=== PATIENT | female | born 1985 | race Caucasian/White ===

== ENCOUNTER 2021-09-07 13:54 | Outpatient (CLI) | payer BC, SELFPAY ==
--- NOTE | 2021-09-07 14:00 | CRLHL7_ITS ---
For Patients: As a result of the Century Cures Act, medical imaging exams and procedure reports are released immediately into your electronic medical record. You may view this report before your referring provider. If you have questions, please contact your health care provider. INDICATION: Third trimester scan, evaluate growth. 2 VESSEL CORD, HISTORY OF COVID IN COMPARISON: 08/08/2021 TECHNIQUE: Real time reid scale imaging of the fetus was performed. FINDINGS: Sonographic imaging demonstrates a single living intrauterine gestation. Fetus demonstrates a regular cardiac rate of 152 beats per minute. Fetus has a vertex position. The placenta lies posteriorly. Amniotic fluid volume appears normal and there is a single deepest vertical pocket: 5.9 cm. The estimated weight is 2428gm which lies at the 93rd %. On the prior OB ultrasound exam dated 08/08/2021 the estimated weight was at the greater than 97th%. BPD 59th percentile. HC 59th percentile. Abdominal circumference greater than 97th percentile. FL 51st percentile. The HC/AC ratio measures 0.97 range (0.95-1.11). IMPRESSION: Sonographic gestational age 33 weeks 6 days and sonographic due date of 10/20/2021. Sonographic age 10 days ahead of the clinical age. Estimated weight 93rd percentile. Abdominal circumference greater than 97th percentile. Dictated by Twin Sykes MD @ 09/07/2021 3:32:34 PM (Electronically Signed)
--- OUTSIDE RECORDS SUMMARY | 2021-10-02 13:29 | XMS_ITS | Encounter Summary ---
:1985 Author Organization [facility] Address [address] [place] [address] Care Team Providers Name Role Phone MireilleJie jones Shweta ZARAGOZA Primary Care Provider Reason for Visit Reason Comments Refill [place] Encounter Details Date Type Department Care Team Description 02/12/2017 [facility] Nicholas Kay A PRN, SKILLED HELPER Refill ([facility]) Obstetrics/Gynecolog y [address] [facility] 5th [place] [address] [place], [place] [phone] (Wo rk) Social History Tobacco Use Types Packs/Day Years Used Date Smoking Tobacco: Never Alcohol Use Standard Drinks/Week Comments Yes 2 (1 standard drink = 0.6 oz pure 2-3 pe r glasses drinks per week alcohol) Alcohol Habits Answer Date Recorded How often do you have a drink Not asked containing alcohol? How many drinks containing alcohol do Not asked you have on a typical day when you are drinking? How often do you have six or more Not asked drinks on one occasion? Comment: 2-3 per glasses drinks per week 03/04/19 15 Sex Assigned at Date Recorded Not on file documented as of this encounter Nursing Notes Ruiz Renee RN - 02/13/2017 3:24 PM CST Renewed medication per medication refill protocol. Reminded to make annual appt. Requested Prescriptions Signed Prescriptions Disp Refills ??? [place] FE 03/15 1-20 MG-MCG tablet 28 Tab 0 Sig: TAKE 1 TABLET BY MOUTH ONCE DAILY Authorizing Provider: NICHOLAS KAY Ordering User: RUIZ RENEE AL COUNTER CLERK documented in this encounter Plan of Treatment Not on filedocumented as of this encounter Visit Diagnoses Not on filedocumented in this encounter Care Teams Public Address Servicer Relationship Specialty Start Date End Date Jie Farah DO PCP - General Family Practice 04/05/16 [address] [place] [address] documented as of this encounter
--- OUTSIDE RECORDS SUMMARY | 2021-10-02 13:29 | XMS_ITS | Encounter Summary ---
:1985 Author [facility] Address [address] [place] [address] Care Team Providers Name Role Phone Jie Farah DO Primary Care Provider Reason for Visit Reason Comments Sore Throat Encounter Details Date Type Department Care Team Description 05/18/2019 Nurse Triage [facility] Line Jie Farah, DO Sore Throat [address] [facility] [address] [place], [place] [id number] [place] [address] [phone] Social History Tobacco Use Types Packs/Day Years Used Date Smoking Tobacco: Never Smokeless Tobacco: Never Alcohol Use Standard Drinks/Week Comments [...] documented as of this encounter Nursing Notes Lawanda Pat RN - 05/18/2019 5:03 PM CDT Pt calling with concerns about a tickle, sensation of something in her throat since 05/15. States bin developed a headache on 05/17 and has a very mild cough. She has been resting at home. Denies difficulty breathing, fever. Pt verbalized understanding of symptoms to watch for [facility] also [facility] on [facility]07[facility]. Problem list reviewed as related to this call. Reason for Disposition ? ? [1] Sore throat is the only symptom AND [2] sore throat present < 48 hours Protocols used: SORE [id number] documented in this encounter Plan of Treatment Not on filedocumented as of this encounter Visit Diagnoses Not on filedocumented in this encounter Care Teams Lay Out Maker Relationship Specialty Start Date End Date Jie Farah DO PCP - General Family Practice 04/05/16 [address] [place] [address] documented as of this encounter
--- OUTSIDE RECORDS SUMMARY | 2021-10-02 13:29 | XMS_ITS | Encounter Summary ---
:1985 Author Organization [facility] Address [address] [place] [address] Care Team Providers Name Role Phone Jie Farah DO Primary Care Provider Encounter Details Date Type Department Care Team Description 06/05/2020 Immunization [place] COVIL Encounter for Vaccine Program administration of vaccine [id number] (Primary Dx) [place], [place] [address] Social History Tobacco Use Types Packs/Day Years [...] on file documented as of this encounter Plan of Treatment Not on filedocumented as of this encounter Visit Diagnoses Diagnosis Encounter for administration of vaccine - Primary documented in this encounter Care Teams State'S Attorney Relationship Specialty Start Date End Date Jie Farah DO PCP - General Family Practice 04/05/16 [address] [place] [address] documented as of this encounter
--- OUTSIDE RECORDS SUMMARY | 2021-10-02 13:29 | XMS_ITS | Clinical Summary ---
:1985 Author Organization [facility] Address [address] [place] [address] Care Team Providers Name Role Phone Jie Farah DO Primary Care Provider Source Comments You are receiving this document as you are listed as the primary care provider,follow-up provider, or the patient has been referred to you for consultation.This is in compliance with the Medicare and Medicaid EHR Incentive Program,which states Providers who transition their patient to another setting of careor provider of care or refers their patient to another provider of care shouldprovide summarycare record for each transition of care or referral. [facility] Allergies No known active allergies Medications Medication Sig Dispensed Refills Start Date End Date Status 03/15 TAKE 1 TAB BY 84 Tablet 0 03/11/2018 Active MG-MCG tablet MOUTH DAILY. SUMAtriptan (IMITREX) Take 1 Tablet by 27 Tablet 0 06/02/2020 Active 100 MG tablet mouth as needed for Migraine. Active Problems Problem Noted Date Migraine without aura 05/14/2016 Hyperhidrosis 01/23/2011 Encounter for other general counseling or advice on co ntraception 01/13/2009 Overview: Control Counseling & Rx Resolved Problems Problem Noted Date Resolved Date Anemia 12/30/2013 Immunizations Name Administration Dates Next Due DTP 06/12/1984, 04/17/1984, 02/11/1984 DTaP 07/25/1989, 09/06/1985 HepB, Unspecified Formulation 02/28/2000, 10/12/1999, 1999 Hib, Unspecified Formulation 12/10/1985 MMR 04/20/1996, 03/12/1985 Moderna (Spikevax) COVID-19, 12+ Yrs 06/05/2020, 05/06/2020 OPV, Trivalent (Orimune or tOPV) 04/17/1984, 02/11/1984 Polio, Unspecified Formulation 07/25/1989, 09/06/1985 TDAP (BOOSTRIX) 07/30/2012 Td 04/20/1996 Family History Medical History Relation Name Comments High Cholesterol Father Thyroid Disorder Mother Cancer Maternal Grandfather leukemia Diabetes Paternal Grandfather Alzheimer's Paternal Grandmother Relation Name Status Comments Father Alive Mother Alive Brother Alive Maternal Grandfather Maternal Grandmother Alive Paternal Grandfather Paternal Grandmother Social History Tobacco Use Types Packs/Day Years [...] Assigned at Date Recorded Not on file Last Filed Vital Signs Vital Sign Reading Time Taken Comments Blood Pressure 97/57 02/15/2019 9:07 AM ARCHITECTURE ANALYST Pulse 61 02/15/2019 9:07 AM ARCHITECTURE ANALYST Temperature 36.8 ??C (98.3 ??F) 04/07/2017 5:36 PM ARCHITECTURE ANALYST Respiratory Rate 16 04/07/2017 5:36 PM ARCHITECTURE ANALYST Oxygen Saturation 100% 09/25/2014 9:05 AM CDT Inhaled Oxygen Concentration - - Weight 54.7 kg (120 lb 9.6 oz) 02/15/2019 9:07 AM ARCHITECTURE ANALYST Height 168.3 cm (5' 6.25) 04/09/2017 3:19 PM ARCHITECTURE ANALYST Body Mass Index 19.32 04/09/2017 3:19 PM ARCHITECTURE ANALYST Plan of Treatment Health Maintenance Due Date Last Done Comments Pap 03/02/2018 03/02/2015, 07/30/2012, 01/13/2009 Adult Preventive Visit 04/09/2019 04/09/2017, 03/04/2016 COVID-19 Vaccine (3 - 11/05/2020 06/05/2020, 05/06/2020 Booster for Moderna series) Influenza (#1) 2021 DTaP/Tdap/Td (7 - Tdap) 07/30/2022 07/30/2012, 04/20/1996, 07/25/1989, Additional history exists Zoster/Shingles (1 of 2) 12/15/2033 Hib Completed 12/10/1985 IPV (Polio) Completed 07/25/1989, 09/06/1985, 04/17/1984, Additional history exists HepB Completed 02/28/2000, 10/12/1999, 09/05/1999 HIV Screening (Preventive Completed 07/30/2012 Services) Hep C Screening (Preventive Completed 07/30/2012 Services) HPV Vaccine Aged Out No longer eligib le based on patient 's age to complete this topic HepA Aged Out No longer eligib le based on patient 's age to complete this topic MCV4 Aged Out No longer eligib le based on patient 's age to complete this topic Pneumococcal Aged Out No longer eligib le based on patient 's age to complete this topic Insurance Payer Benefit Plan / Subscriber ID Effective Dates Phone Addre ss Type Group [facility] [id number] 2016-Present [address] [address] [place] [address] (Work) Simona Che Personal/Famil Self 1985 [address]) [address] [phone] APARTMENT [address] (Work) [place] [id number] Bandar Che Personal/Famil Self 04/23/1960 [address] (Home) [place] [phone] (Work) Advance Directives Latest Code Status on File Code Status Date Activated Date Inactivated Comments Full Code 05/28/2013 11:30 AM 05/28/2013 2:36 PM Care Teams Mobile Unit Assistant Relationship Specialty Start Date End Date Jie Farah DO PCP - General Family Practice 04/05/16 [address] [place] [address]
--- OUTSIDE RECORDS SUMMARY | 2021-10-02 13:29 | XMS_ITS | Encounter Summary ---
:1985 [facility] Address [address] [place] [address] Care Team Providers Name Role Phone Jie Farah DO Primary Care Provider Reason for Visit Reason Onset Date Comments Refill 02/18/2018 Encounter Details Date Type Department Care Team Description 02/18/2018 Refill [facility] [address]ie Roper, Refill Medicine [address] [place] [address] [place], [place] [address] [phone] Social History Tobacco Use Types Packs/Day Years [...] documented as of this encounter Nursing Notes hBavani Hoyos RN - 02/18/2018 9:11 AM CST See Refill Encounter dated 02/12/18 CHECKER documented in this encounter Plan of Treatment Not on filedocumented as of this encounter Visit Diagnoses Not on filedocumented in this encounter Care Teams Aircraft Life Support Fitter Relationship Specialty Start Date End Date Jie Farah DO PCP - General Family Practice 04/05/16 [address] [place] [address] documented as of this encounter
--- OUTSIDE RECORDS SUMMARY | 2021-10-02 13:29 | XMS_ITS | Encounter Summary ---
:1985 Author Organization [facility] Address [address] [place] [address] Care Team Providers Name Role Phone Jie Farah DO Primary Care Provider Reason for Visit Reason Comments MEDICATION CHECK Refill Encounter Details Date Type Department Care Team Description 02/15/2019 Office Visit [facility] [address] Jie Farah, [place] graine without aura Family Medicine DO and without status [address] rain[address], [address] intractable (Primary [place], [place] Dx ) [phone] (Wo rk) Social History Tobacco Use Types [...] on file documented as of this encounter Last Filed Vital Signs Vital Sign Reading Time Taken Comments Blood Pressure 97/57 02/15/2019 9:07 AM ELECTRICAL AND RADIO MECHANIC Pulse 61 02/15/2019 9:07 AM ELECTRICAL AND RADIO MECHANIC Temperature - - Respiratory Rate - - Oxygen Saturation - - Inhaled Oxygen Concentration - - Weight 54.7 kg (120 lb 9.6 oz) 02/15/2019 9:07 AM ELECTRICAL AND RADIO MECHANIC Height - - Body Mass Index 19.32 04/09/2017 3:19 PM ELECTRICAL AND RADIO MECHANIC documented in this encounter Progress Notes Jie Farah, - 02/15/2019 9:00 AM CST Subjective: Patient ID: Simona Che is a 33 y.o. female. Chief Complaint: Here today for a refill of her imitrex. She has been using this medication for many years. She states that around when she is about to get her. She starts to get a headache. During this time it is not a full-blown migraine but a constant annoying headache. She will take approximately half of a tablet of her Imitrex at that time and it will tone down the pain. She then also has a couple instances throughout the month that she has a migraine. Overall the Imitrex is working well. If her headaches get bad enough and she is working from home she will go lay down for approximately 45 minutes and feel better. It is not making her miss work. Her headaches are located front and temporal. Review of Systems Constitutional: Negative for activity change, appetite change, chills, fatigue and fever. HENT: Negative for congestion, postnasal drip, sinus pressure and sore throat. Respiratory: Negative for cough and shortness of breath. Cardiovascular: Negative for chest pain and leg swelling. Gastrointestinal: Negative for diarrhea and nausea. Endocrine: Negative for cold intolerance, heat intolerance, polydipsia, polyphagia and polyuria. Skin: Negative for rash. Neurological: Negative for dizziness and weakness. Hematological: Negative for adenopathy. Objective: Physical Exam Constitutional: She appears well-developed and well-nourished. No distress. HENT: Head: Normocephalic. Cardiovascular: Normal rate, regular rhythm, normal heart sounds and intact distal pulses. Pulmonary/Chest: Effort normal and breath sounds normal. No respiratory distress. She has no wheezes. Nursing note and vitals reviewed. Assessment: ICD-10-CM 1. Migraine without aura and without status migrainosus, not intractable G43.009 Plan: Simona was seen today for medication check and refill. Diagnoses and all orders for this visit: Migraine without aura and without status migrainosus, not intractable Other orders - SUMAtriptan (IMITREX) 100 MG tablet; Take 1 Tablet by mouth as needed for Migraine. Her migraines seem to be well controlled at this time. No further follow-up except seeing urine biliis needed. We did discuss if migraines change or worsen referral to the headache Clinic. TRICAL AND RADIO MECHANIC documented in this encounter Plan of Treatment Not on filedocumented as of this encounter Visit Diagnoses Diagnosis Migraine without aura and without status migrainosus, not intractable - Primary Migraine without aura, without mention o f intractable migraine without mention of status migrainosus documented in this encounter Care Teams Radiography Technician Relationship Specialty Start Date End Date Jie Farah DO PCP - General Family Practice 04/05/16 [address] [place] [address] documented as of this encounter
--- OUTSIDE RECORDS SUMMARY | 2021-10-02 13:29 | XMS_ITS | Encounter Summary ---
:1985 Author Organization [facility] Address [address] [place] [address] Care Team Providers Name Role Phone Jie Farah DO Primary Care Provider Encounter Details Date Type Department Care Team Description 05/06/2020 Immunization [place] COVIA Encounter for Vaccine Program administration of vaccine [id number] (Primary Dx) [place], [place] [address] Social History Tobacco Use Types [...] Primary documented in this encounter Care Teams Gang Saw Operator Relationship Specialty Start Date End Date Jie Farah DO PCP - General Family Practice 04/05/16 [address] [place] [address] documented as of this encounter
--- OUTSIDE RECORDS SUMMARY | 2021-10-02 13:29 | XMS_ITS | Encounter Summary ---
:1985 Author Organization [facility] Address [address] [place] [address] Care Team Providers Name Role Phone Sofi Jie Shweta ZARAGOZA Primary Care Provider Reason for Visit Reason Comments Refill Encounter Details Date Type Department Care Team Description 03/08/2018 [facility]ill [facility] Nicholas Kay A PRN, RADIOLOGY TECHNICIAN Refill Obstetrics/Gynecolog y [address] [facility] 5th [place] [address] [place], [place] [phone] (Wo rk) Social History Tobacco Use Types [...] documented as of this encounter Nursing Notes Meliton Zimmerman RN - 03/11/2018 3:57 PM CST Renewed medication per medication refill protocol. Requested Prescriptions Signed Prescriptions Disp Refills ??? 03/15 1-20 MG-MCG tablet 84 Tablet 0 Sig: TAKE 1 TAB BY MOUTH DAILY. Authorizing Provider: NICHOLAS KAY Ordering User: MELITON ZIMMERMAN Last visit- 04/09/17 Last ordered- 04/09/17 Prescribing provider- Rahul Future Appointments Date Time Provider Department Center 04/22/2018 7:30 AM Nicholas Kay, LINE PERSON, RADIOLOGY TECHNICIAN P[address] documented in this encounter Plan of Treatment Not on filedocumented as of this encounter Visit Diagnoses Not on filedocumented in this encounter Care Teams Separating Machine Operator Relationship Specialty Start Date End Date Jie Farah DO PCP - General Family Practice 04/05/16 [address] [place] [address] documented as of this encounter
--- OUTSIDE RECORDS SUMMARY | 2021-10-02 13:29 | XMS_ITS | Encounter Summary ---
:1985 Author Organization [facility] Address [address] [place] [address] Care Team Providers Name Role Phone Jie Farah DO Primary Care Provider Reason for Visit Reason Comments PAIN, SINUS Encounter Details Date Type Department Care Team Description 04/07/2017 Hospital Encounter [facility] Justine Winn, Acute sinusitis with Care PA-C symptoms > 10 days [address] [address] [phone] Social History Tobacco Use Types Packs/Day Years [...] Sign Reading Time Taken Comments Blood Pressure 118/80 04/07/2017 5:36 PM TOBACCO ROLLER Pulse 60 04/07/2017 5:36 PM TOBACCO ROLLER Temperature 36.8 ??C (98.3 ??F) 04/07/2017 5:36 PM TOBACCO ROLLER Respiratory Rate 16 04/07/2017 5:36 PM TOBACCO ROLLER Oxygen Saturation - - Inhaled Oxygen Concentration - - Weight - - Height - - Body Mass Index - - documented in this encounter Discharge Instructions Discharge InstructionsJustine Winn PA-C - 04/07/2017 5:54 PM CST Recommendations: ?? Increase clear fluids until urine is clear. ?? Get plenty of rest. ?? Tylenol or ibuprofen as tolerated ?? Consider over the counter decongestant like sudafed ?? Decrease dairy products until mucous thins. ?? No NyQuill or Benadryl, these thicken mucous and can increase pain. ?? Nasal saline should be used as needed ?? Koki pot should be used with sterile saline if available ?? Prop your head up at bedtime ?? Warm compress or heating pad to face ?? Shower before bedtime to help clear nasal congestion as well . ?? Watch for fever, facial swelling, increasing tooth pain, shortness of breath, chest pain and return to UC or ER right away for recheck if concerns. CCO ROLLER AttachmentsThe following attachments cannot be sent through Care Everywhere. SINUSITIS (ALBANIAN)documented in this encounter Medications at Time of Discharge Medication Sig Dispensed Refills Start Date End Date amoxicillin-clavulanate Take 1 Tab by mouth 14 Tab 0 01/201804/14/2017 (AUGMENTIN) 875-125 mg two times a day for per tablet 7 days. BLISOVI FE 03/15 1-20 TAKE 1 TABLET BY 28 Tab 0 7 04/09/2017 MG-MCG tablet MOUTH ONCE DAILY SUMAtriptan (IMITREX) 100 Take 1 Tab by mouth 54 Tab 3 0 06/19/2016 07/12/2017 MG tablet as needed for Migraine. May repeat after 2 hours if needed. Max 2 tabs/24 hours. Max 9 days/month documented as of this encounter ED Notes Justine Winn PA-C - 04/07/2017 5:59 PM CST SUBJECTIVE: Simona Che is a 31 y.o.female who presents with complaint of a concern for sinus infection. She states that she was sick with upper respiratory tract infection in the last week of February and symptoms got better before getting worse again. She now has again a cylinder sinuses for thepast 4-5 days. She is having some sinus pain, congestion and decreased smell. Symptoms progressivelygot worse 2 days ago. No fevers or chills. Patient does have a mild headache, no tooth pain. She hastaken Advil for symptoms. She does not have a history of previous sinus infections. Social history: Social History Substance Use Topics ??? Smoking status: Never Smoker ??? Smokeless tobacco: None ??? Alcohol use 1.2 - 1.8 oz/week 2 - 3 Glasses of wine per week Comment: 2-3 per glasses drinks per week Past Medical History: Past Medical History: Diagnosis Date ??? Anemia ??? Asthma (HRC) ??? Immunization, other disease ??? Irregular menstrual cycle ??? Migraine, unspecified, without mention of intractable migraine without mention of status migrainosus ??? Trauma 08/2011 Fractured patella ??? Urinary tract infection 05/2010 Pyelonephritis ??? Varicella Adverse Drug Reactions: Review of patient's allergies indicates no known allergies. Medications: Norethin Tan-Eth Estrad-FE, SUMAtriptan, and amoxicillin-clavulanate OBJECTIVE: Vital Signs: BP 118/80 Pulse 60 Temp 36.8 ??C (98.3 ??F) (Oral) Resp 16 LMP 03/10/2017 General: Appears well and in NAD. A&O x3. Pleasant and cooperative with exam. Skin: MMM, no rashes Eyes: Sclera white, conjunctiva pink, cornea and lenses are clear. PERRLA, EOMI bilaterally fundi are benign bilaterally Nose: Very congested with purulent discharge. Sinuses: Bilateral maxillary sinuses are tender to percussion. No obvious swelling. Ears: Canals normal without lesions. TMs: Pearly reid, normal light reflex bilaterally Pharynx: Moist mucous membranes without lesions, erythema, or exudate, with purulent postnasal drainage. Neck: Supple, no LAD Respiratory: Normal respiratory effort. Lungs are clear with good breath sounds. Heart: RR without murmurs, rubs, or gallops. Labs: Labs Reviewed - No data to display Orders Placed This Encounter ??? amoxicillin-clavulanate (AUGMENTIN) 875-125 mg per tablet ASSESSMENT: 1. Acute sinusitis with symptoms > 10 days PLAN: I discussed my findings with the patient. I am concerned that this is possibly developing into a sinus infection given the length of time of her illness. I do think putting her on round of antibiotics is warranted today. Patient was placed on Augmentin twice a day for 7 days. Sinus irrigation was discussed. Use OTC analgesics, oral decongestants, and decongestant nasal spray (maximum 4 days, side effects discussed). Decrease dairy products while congested. Hot shower prior to bed time. RTC PRN if not gradually improving. The patient was discharged ambulatory and in stable condition. This note was written using voice recognition software and may contain typographic errors. Medications Prescribed this Visit Disp Refills Start End amoxicillin-clavulanate (AUGMENTIN) 875-125 mg per tablet 14 Tab 0 04/07/2017 04/14/2017 Take 1 Tab by mouth two times a day for 7 days. Oral Discharge Instructions Recommendations: ?? Increase clear fluids until urine is clear. ?? Get plenty of rest. ?? Tylenol or ibuprofen as tolerated ?? Consider over the counter decongestant like sudafed ?? Decrease dairy products until mucous thins. ?? No NyQuill or Benadryl, these thicken mucous and can increase pain. ?? Nasal saline should be used as needed ?? Koki pot should be used with sterile saline if available ?? Prop your head up at bedtime ?? Warm compress or heating pad to face ?? Shower before bedtime to help clear nasal congestion as well . ?? Watch for fever, facial swelling, increasing tooth pain, shortness of breath, chest pain and return to UC or ER right away for recheck if concerns. Discharge References/Attachments SINUSITIS (ALBANIAN) CCO ROLLER documented in this encounter Plan of Treatment Not on filedocumented as of this encounter Visit Diagnoses Diagnosis Acute sinusitis with symptoms > 10 days Acute sinusitis, unspecified Triage Assessment Note - Katelyn Neil RN - 04/07/2017 5:34 PM CST C/o sinus pain, congestion, decreased smell sensation. Sx started Sat. CCO ROLLER documented in this encounter Care Teams Advanced Manager Relationship Specialty Start Date End Date Jie Farah DO PCP - General Family Practice 04/05/16 [address] [place] [address] documented as of this encounter
--- OUTSIDE RECORDS SUMMARY | 2021-10-02 13:29 | XMS_ITS | Encounter Summary ---
:1985 Author Organization [facility] Address [address] [place] [address] Care Team Providers Name Role Phone Jie Mckeon DO Primary Care Provider Reason for Visit Reason Comments Refill SUMAtriptan (IMITREX) 100 MG tablet Encounter Details Date Type Department Care Team Description 01/27/2020 Refill [facility] 3850 Jie Mckeon, Re fill (SUMAtriptan Family Medicine DO (IMITREX) 100 MG [address] [place] [address] tab let) [place] [phone] (Wo rk) Social History Tobacco Use Types [...] documented as of this encounter Nursing Notes Keven Leblanc, RN - 01/27/2020 6:29 PM CST Renewed medication per medication refill protocol. Requested Prescriptions Pending Prescriptions Disp Refills ??? SUMAtriptan (IMITREX) 100 MG tablet 18 Tablet Sig: Take 1 Tablet by mouth as needed for Migraine. WELD OPERATOR Interface, Out [employer] Prov Query - 01/27/2020 12:54 PM CST SUMAtriptan (IMITREX) 100 MG tablet Medication started: 04/08/2015 Last ordered by JIE MCKEON: 07/15/2019 (196 days ago) QTY: 18, Refills: 2, Sig: take 1 tablet by mouth as needed for migraine. (unchanged) -> Refill x 3 months (until due for an office visit) -> Calculate the quantity and number of refills manually. Last qualifying visit: 02/15/2019 (with JIE MCKEON) Next scheduled visit: None Powered by [employer], Reference: [id number], 01/27/2020 12:54:06 PM SHOTWELD OPERATOR, Pool: PN REFILL WIZARD ADMIN ([id number]) WELD OPERATOR Adan Archibald - 01/27/2020 12:53 PM CST Medications - Refill Request (able to re-order) Name of prescribing clinician: Jie Mckeon, DO Additional comments (related to the above concern): For this refill, patient would like it filled at the pharmacy listed in Meds & Orders. (Verify the pharmacy patient would like to use for this request is highlighted in blue in Pharmacy Selection under Meds & Orders) If there are questions regarding your request, is it okay to leave a detailed message on your voicemail? No (Advise caller that the PN call back number will end with [phone] or unknown) (Advise caller of turn around time is 2 business days for standard refills and 2 to 5 business days for controlled refills) Please route to: Refill Pool (P [id number]) [facility] Pool [place] Patients ONLY (P [id number]) [facility] ONLY (P [id number]) WELD OPERATOR documented in this encounter Plan of Treatment Not on filedocumented as of this encounter Visit Diagnoses Not on filedocumented in this encounter Care Teams Playground Equipment Erector Relationship Specialty Start Date End Date Jie Mckeon DO PCP - General Family Practice 04/05/16 [address] [place] [address] documented as of this encounter
--- OUTSIDE RECORDS SUMMARY | 2021-10-02 13:29 | XMS_ITS | Encounter Summary ---
:1985 Author Organization [facility] Address [address] [place] [address] Care Team Providers Name Role Phone Jie Mckeon DO Primary Care Provider Reason for Visit Reason Comments Refill SUMAtriptan (IMITREX) 100 MG tablet [Pharmacy Med Name: SUMATRIPTAN SUCC 100 MG TABLET] Encounter Details Date Type Department Care Team Description 02/12/2018 Refill [facility] 3850 Jie Mckeon, Re fill (SUMAtriptan Family Medicine DO (IMITREX) 100 MG tablet [address] [place] [address] [Ph armacy Med Name: Bl[address]. [address] SUMATRIPTAN SUCC 100 MG [place], [place]]) [phone] (Wo rk) Social History Tobacco Use Types [...] documented as of this encounter Nursing Notes Sheree Tolbert - 02/19/2018 7:46 AM CST Medication Refill - Overdue for Visit Called patient, was: Successful in reaching patient We recently received a refill request for one of your medications. To continue managing your medication refills, your clinician would like to see you for a(n): Patient is due for a(n): office visit Patient scheduled appointment on: 02/23 Future Appointments Date Time Provider Department Center 02/23/2018 9:00 AM Jei Mckeon, DO [id number] [facility] [id number] Do you have enough medication to last until your appointment? Yes Patient advised refill will be addressed at upcoming visit. Frontline Action: Remove pended medication and Sign Visit or if unable, Route as low priority to Refill Wizard Admin-PN Pool ([id number]) Sheree Tee - 02/18/2018 8:54 AM CST Medication Refill - Overdue for Visit Called patient, was: Unable to reach patient 1st call attempted. Left message to call back. PSC Action: Patient needs to schedule an appointment for their medication refill. Schedule and verify if they have enough medication until their next appointment. If additional medication is needed, route this encounter high priority to Refill Pool (P [id number]) Marga Mcdermott RN - 02/13/2018 5:46 PM CST Further Assistance Needed on Refill from Brickmason Supervisor Patient is overdue for Office visit. -> An office visit is overdue (performed over 21 months ago, required every 12 months). ? Last qualifying visit: 05/14/2016 (with JIE MCKEON) ? Next scheduled visit: None ? Please call patient to schedule a Office Visit and document using .JOSE MIGUEL. After attempting to schedule patient: Please route to: Jie Mckeon, DO Requested Prescriptions Pending Prescriptions Disp Refills ??? SUMAtriptan (IMITREX) 100 MG tablet [Pharmacy Med Name: SUMATRIPTAN SUCC 100 MG TABLET] 54 Tablet Sig: TAKE 1 TABLETAS NEEDED FOR MIGRAINE. MAY REPEAT AFTER 2 HRS IF NEEDED. MAX 2 TABS/24HRS, 9DAYS/MONTH CUTTING MACHINE OPERATOR Interface, Out Surescripts Prov Query - 02/12/2018 9:37 AM CST SUMAtriptan (IMITREX) 100 MG tablet [Pharmacy Med Name: SUMATRIPTAN SUCC 100 MG TABLET] Medication started: 04/08/2015 Last ordered by JIE MCKEON: 07/15/2017 (212 days ago) QTY: 54, Refills: 0, Sig: take 1 tab by mouth as needed for migraine. may repeat after 2 hours if needed. max 2 tabs/24 hours. max 9 days/month (changed) -> This medication may not have been authorized by the requested provider. -> The requested sig has changed from the last order. -> An office visit is overdue (performed over 21 months ago, required every 12 months). Last qualifying visit: 05/14/2016 (with JIE MCKEON) Next scheduled visit: None SBP: 110 mm Hg on 04/09/2017 DBP: 74 mm Hg on 04/09/2017 Powered by [employer], Reference: [id number], 02/12/2018 9:37:46 AM GEAR CUTTING MACHINE OPERATOR, Pool: [id number] FM REFILL ([id number]) CUTTING MACHINE OPERATOR documented in this encounter Plan of Treatment Not on filedocumented as of this encounter Visit Diagnoses Not on filedocumented in this encounter Care Teams Remelt Operator Relationship Specialty Start Date End Date Jie Mckeon DO PCP - General Family Practice 04/05/16 [address] [place] [address] documented as of this encounter
--- OUTSIDE RECORDS SUMMARY | 2021-10-02 13:29 | XMS_ITS | Encounter Summary ---
:1985 Author Organization [employer] Address [address] [place] [address] Care Team Providers Name Role Phone Jie Mckeon DO Primary Care Provider Reason for Visit Reason Comments Refill SUMAtriptan (IMITREX) 100 MG tablet [Pharmacy Med Name: SUMATRIPTAN SUCC 100 MG TABLET] Encounter Details Date Type Department Care Team Description 07/12/2017 Refill [facility] 3850 Jie Mckeon, Re fill (SUMAtriptan Family Medicine DO (IMITREX) 100 MG tablet [address] [place] [address] [Ph armacy Med Name: [address] SUMATRIPTAN SUCC 100 MG [place], [place]]) [id number] [id number] (Wo rk) Social History Tobacco Use Types [...] documented as of this encounter Nursing Notes Minna Kirk - 07/15/2017 3:25 PM CDT MYCHART appointment reminder sent Bhavani Hoyos RN - 07/15/2017 11:21 AM CDT OFFICE APPOINTMENT NEEDED Please notify patient to schedule an appointment within 30 days. Requested Prescriptions Signed Prescriptions Disp Refills ??? SUMAtriptan (IMITREX) 100 MG tablet 54 Tab 0 Sig: Take 1 Tab by mouth as needed for Migraine. May repeat after 2 hours if needed. Max 2 tabs/24 hours. Max 9 days/month Authorizing Provider: JIE MCKEON Ordering User: BHAVANI HOYOS Interface, Out Surescripts Prov Query - 07/12/2017 6:02 PM CDT SUMAtriptan (IMITREX) 100 MG tablet [Pharmacy Med Name: SUMATRIPTAN SUCC 100 MG TABLET] Medication started: 04/08/2015 Last ordered by JIE MCKEON: 06/19/2016 (388 days ago) QTY: 54, Refills: 3, Sig: take 1 tab by mouth as needed for migraine. may repeat after 2 hours if needed. max 2 tabs/24 hours. max 9 days/month (changed) -> This medication may not have been authorized by the requested provider. -> The requested sig has changed from the last order. -> Refill x 3 months (courtesy refill. overdue for an office visit) -> Calculate quantity and refills manually. They could not be estimated due to missing or unreadable information. Last qualifying visit: 05/14/2016 (with JIE MCKEON) Next scheduled visit: None SBP: 110 mm Hg on 04/09/2017 DBP: 74 mm Hg on 04/09/2017 Powered by [employer], Reference: [id number], 07/12/2017 6:02:29 PM CDT, Pool: [id number] FM REFILL ([id number]) documented in this encounter Plan of Treatment Not on filedocumented as of this encounter Visit Diagnoses Not on filedocumented in this encounter Care Teams Bowl Turner Relationship Specialty Start Date End Date Jie Mckeon DO PCP - General Family Practice 04/05/16 [address] [place] [address] documented as of this encounter
--- OUTSIDE RECORDS SUMMARY | 2021-10-02 13:29 | XMS_ITS | Encounter Summary ---
:1985 Author Organization [facility] Address [address] [place] [address] Care Team Providers Name Role Phone Jie Farah DO Primary Care Provider Reason for Visit Reason Comments Refill Encounter Details Date Type Department Care Team Description 03/12/2017 [facility] Nanette Kay A PRN, K9 HANDLER Refill Obstetrics/Gynecolog y [address] [facility] [address] [place] [address] [place], [place] [phone] (Wo rk) Social History Tobacco Use Types [...] 2-3 per glasses drinks per week 03/04/19 Sex Assigned at Date Recorded Not on file documented as of this encounter Nursing Notes Jie Sheehan RN - 03/12/2017 1:10 PM CST Pt states she has enough medication to get her through until next OV, ok to deny refill request. Future Appointments Date Time Provider Department Center 04/09/2017 3:30 PM Nanette Kay, MOLYBDENUM STEAMER OPERATOR, K9 HANDLER [facility] OBG PN [facility] GER MAINTENANCE Jie Sheehan RN - 03/12/2017 11:49 AM CST LM for pt to return call to schedule annual exam and route to provider to advise on refill. Requested Prescriptions Pending Prescriptions Disp Refills ??? 03/15 1-20 MG-MCG tablet [Pharmacy Med Name: 1 MG-20 MCG TABLET] 28 Tab 0 Sig: TAKE 1 TABLET BY MOUTH ONCE DAILY. MUST BE SEEN FOR FURTHER REFILLS Last visit- 03/04/16 Last ordered- 02/13/17 Prescribing provider- rice No future appointments. GER MAINTENANCE documented in this encounter Plan of Treatment Not on filedocumented as of this encounter Visit Diagnoses Not on filedocumented in this encounter Care Teams Plastics And Composites Inspector Relationship Specialty Start Date End Date Jie Farah DO PCP - General Family Practice 04/05/16 [address] [place] [address] documented as of this encounter
--- OUTSIDE RECORDS SUMMARY | 2021-10-02 13:29 | XMS_ITS | Encounter Summary ---
:1985 Author Organization [facility] Address [address] [place] [address] Care Team Providers Name Role Phone Jie Mckeon DO Primary Care Provider Reason for Visit Reason Onset Date Comments Refill 06/01/2020 SUMAtriptan (IMITREX ) 100 MG tablet Encounter Details Date Type Department Care Team Description 06/01/2020 Refill [facility] 3850 Jie Mckeon, Re fill (SUMAtriptan Family Medicine DO (IMITREX) 100 MG [address] [place] [address] tab let) [place] [phone] (Wo rk) Social History Tobacco Use Types [...] documented as of this encounter Nursing Notes Kenisha Villalpando RN - 06/02/2020 9:40 AM CDT 90 day supply given per Emergency Refill Standing Order. Kenisha Villalpando RN 06/02/2020, 9:40 AM Interface, Out [employer] Prov Query - 06/01/2020 10:42 AM CDT SUMAtriptan (IMITREX) 100 MG tablet Medication started: 04/08/2015 Last ordered by JIE MCKEON: 03/29/2020 (64 days ago) QTY: 18, Refills: 0, Sig: take 1 tabletby mouth as needed for migraine. (unchanged) -> An office visit is overdue (performed 16 months ago, required every 12 months). Last qualifying visit: 02/15/2019 (with JIE MCKEON) Next scheduled visit: None Powered by [employer], Reference: [id number], 06/01/2020 10:42:02 AM CDT, Pool: [id number] FM REFILL ([id number]) documented in this encounter Plan of Treatment Not on filedocumented as of this encounter Visit Diagnoses Not on filedocumented in this encounter Care Teams Mems Device Scientist Relationship Specialty Start Date End Date Jie Mckeon, DO PCP - General Family Practice 04/05/16 [address] [place] [address] documented as of this encounter
--- OUTSIDE RECORDS SUMMARY | 2021-10-02 13:30 | XMS_ITS | Encounter Summary ---
:1985 Author Organization [facility] Address [address] [place] [address] Care Team Providers Name Role Phone Md MINA Leigh Primary Care Provider Encounter Details Date Type Department Care Team Description 01/23/2011 Notes/Orders [facility] Nanette Bravo, [address] [place] Robb APRN, COORDINATOR OF [place] [address] [place] [address] [address] [phone] (Wo rk) Social History Tobacco Use Types Packs/Day Years Used Date Smoking Tobacco: Never Assessed Sex Assigned at Date Recorded Not on file documented as of this encounter Plan of Treatment Not on filedocumented as of this encounter Visit Diagnoses Not on filedocumented in this encounter Care Teams Body Hanger Relationship Specialty Start Date End Date Md Leigh MD PCP - General 05/26/10 05/11/13 [place], [place] [id number] documented as of this encounter
--- OUTSIDE RECORDS SUMMARY | 2021-10-02 13:30 | XMS_ITS | Encounter Summary ---
:1985 Author Organization [employer] Address [address] [place] [address] Care Team Providers Name Role Phone Linette, Denisse Mane DO Primary Care Provider Encounter Details Date Type Department Care Team Description 05/28/2013 Hospital Encounter [facility] [address] Ambul Surge ry DPM [address] [place] [address] [phone] (Wo rk) Social History Tobacco Use Types Packs/Day Years Used Date Smoking Tobacco: Never Assessed Sex Assigned at Date Recorded Not on file documented as of this encounter Last Filed Vital Signs Vital Sign Reading Time Taken Comments Blood Pressure - - Pulse - - Temperature - - Respiratory Rate - - Oxygen Saturation - - Inhaled Oxygen Concentration - - Weight 54.9 kg (121 lb) 05/26/2013 4:24 PM CDT Height 165.7 cm (5' 5.25) 05/26/2013 4:24 PM CDT Body Mass Index 19.98 05/26/2013 4:24 PM CDT documented in this encounter Medications at Time of Discharge Medication Sig Dispensed Refills Start Date End Date oxyCODONE-acetaminophen Take 1-2 tablets by 40 tablet 0 05/201306/21/2013 (aka PERCOCET) 5-325 MG mouth every 4 hours tablet as needed for Pain. Maximum 12 tablets/24 hours clindamycin (AKA CLEOCIN Apply topically 2 60 mL 11 06/201109/25/2014 T) 1 % lotion times daily. to axilla. documented as of this encounter Procedure Notes Elizabeth Hurtado DPM - 05/28/2013 11:46 AM CDT Op Note signed by Elizabeth Hurtado DPM at 05/31/13 0955 Author: Elizabeth Hurtado DPM Service: (none) Author Type: Physician Filed: 05/31/13 0951 Note Time: 05/28/13 1328 Status: Signed User Experience Architect: Elizabeth Hurtado DPM (Physician) NAME: ODESSA CHE MR#: [id number] CSN: [id number] AUTHENTICATING CLINICIAN: Elizabeth Hurtado DPM CONFIRM #: [id number] LOC: 1 OPERATIVE REPORT DATE OF OPERATION: 05/28/2013 : 1985 SURGEON: Elizabeth Hurtado DPM ASSIST: None. PREOPERATIVE DIAGNOSES: 1. Soft tissue mass, left foot. 2. Left Tibialis anterior tendinitis. POSTOP DIAGNOSES: 1. Soft tissue mass, left foot. 2. Left Tibialis anterior tendinitis. PLANNED PROCEDURE: Soft tissue mass excision, left foot. PERFORMED PROCEDURES: 1. Soft tissue mass excision, left foot. 2. left Repair tibialis anterior tendon. ANESTHESIA: Local with IV sedation, utilizing 10 mL of 1% lidocaine plain. INDICATIONS: Patient has a history of palpable soft tissue mass to the proximal medial left foot overlying the tibialis anterior tendon, approximately 2 cm diameter. She has irritation with shoes rubbing, and when she runs, etc. MRI findings are consistent with likely ganglion cyst. Underlying tibialis anterior tendon showed tenosynovitis. The tendon itself appeared to be intact. The procedure is reviewed with the patient in detail including indications, contraindications, as well as possible complications, including, but not limited to, ongoing numbness, swelling, pain, infection, recurrence of the cyst, continued tendonitis, and possible need for further future surgical intervention. OPERATIVE TECHNIQUE: Patient was brought into the operating suite, placed on the operating table in the supine position where IV sedation is underwent. Note, IV was started back in the operating room, as she was having vasovagal symptoms in the preoperative holding area. A mid calf left ankle tourniquet was applied, and adiamond type local anesthetic block is performed surrounding the mass using 10 mL of 1% lidocaine plain. The left lower extremity is prepped and draped in the usual sterile fashion. After pause for the cause, exsanguination provided with an Esmarch bandage and the tourniquet elevated to 250 mmHg. A lazy S type skin incision is made overlying the mass at the level of the tibialis anterior tendon/medial rearfoot/ankle area with at least 5 cm in length. The subcutaneous tissues are carefully dissected. Small bleeding vessels are cauterized. Care taken to retract other neurovascular structures. The mass is identified and dissected out in total. It seemed consistent with ganglion cyst although thecyst was not ruptured. Underlying the mass, the tendon sheath of the tibialis anterior tendon is opened, and the tibialis anterior tendon was evaluated and the anterior layers of the tendon appeared frayed; however, the posterior aspect of the tendon appeared to be intact. The frayed tendon was debrided a bit. I elected to tubularize the tendon to bring the posterior aspect of the tendon around. Since fraying was mild, I elected to do this with simply a Vicryl suture; thus, the tendon was tubularized with a 2-0 Vicryl suture with the buried knot technique. The tendon sheath is then repaired with a 4-0 Vicryl suture, the deep ligamentous tissue closed with a 4-0 Vicryl suture, followed by skin closure with a 5-0 nylon suture in a combination of simple interrupted and horizontal mattress stitches. Local anesthetic block in a similar fashion is performed with 10 mL of 0.5% bupivacaine plain, and 1 mL of dexamethasone phosphate is injected. The wound was dressed with Adaptic, followed by a sterile gauze dressing, and loosely applied Tan wrap. The tourniquet was released, followed by good perfusionto all digits of the left foot. There are no complications with the procedure. The specimen was sentto Pathology for review. PLAN: Patient will be weightbearing as tolerated in a tall CAM Walker for at least 1 month to 6 weeks postoperatively. SMS:MEDQ C: CONFIRM #: [id number] Elizabeth Hurtado DPM - 05/28/2013 11:28 AM CDT SURGEON: Elizabeth Hurtado DPM ASSISTANTS: None PREOP DIAGNOSIS: soft tissue mass left foot, tibialis anterior tendonitis left foot POSTOP DIAGNOSIS: Same PROCEDURE: soft tissue mass excision left foot and repair tibialis anterior tendon left foot ANESTHESIA: MAC with local HEMOSTASIS: Midcalf tourniquet 250mm Hg EBL: <3mL REPLACEMENT FLUIDS: See EPIC Chart for details FINDINGS: The tibialis anterior tendon at the anterior surface below the cyst had some superficial fraying. SPECIMENS: none Patient tolerated the procedure well and was transported to the PACU per anesthesia with vital signsstable. documented in this encounter Miscellaneous Notes Medication History - Bob Saavedra MD - 05/28/2013 12:32 PM CDT INPATIENT MEDS Encounter Date: 05/13/13 oxyCODONE-acetaminophen (PERCOCET) 5-325 mg per tablet 1-2 tablet Start Date:05/28/13, End Date:05/28/13, Frequency:EVERY 4 HOURS PRN *No Administrations Recorded oxyCODONE-acetaminophen (PERCOCET) 5-325 mg per tablet Start Date:05/28/13, End Date:06/21/13, Frequency:EVERY 4 HOURS PRN *No Administrations Recorded fentaNYL (SUBLIMAZE) injection 25-50 mcg Start Date:05/28/13, End Date:05/28/13, Frequency:EVERY 5 MIN PRN *No Administrations Recorded morphine injection 1-3 mg Start Date:05/28/13, End Date:05/28/13, Frequency:EVERY 5 MIN PRN *No Administrations Recorded HYDROmorphone (DILAUDID) injection 0.2-0.4 mg Start Date:05/28/13, End Date:05/28/13, Frequency:EVERY 10 MIN PRN *No Administrations Recorded meperidine (DEMEROL) injection 12.5 mg Start Date:05/28/13, End Date:05/28/13, Frequency:EVERY 5 MIN PRN *No Administrations Recorded midazolam (VERSED) 1 mg/mL injection 1-2 mg Start Date:05/28/13, End Date:05/28/13, Frequency:EVERY 5 MIN PRN *No Administrations Recorded fentaNYL (SUBLIMAZE) injection 25-50 mcg Start Date:05/28/13, End Date:05/28/13, Frequency:EVERY 5 MIN PRN *No Administrations Recorded midazolam (VERSED) 1 mg/mL injection 0.5-1 mg Start Date:05/28/13, End Date:05/28/13, Frequency:EVERY 5 MIN PRN *No Administrations Recorded ondansetron (ZOFRAN) injection 4 mg Start Date:05/28/13, End Date:05/28/13, Frequency:EVERY 4 HOURS PRN *No Administrations Recorded prochlorperazine (COMPAZINE) injection 5 mg Start Date:05/28/13, End Date:05/28/13, Frequency:PRN *No Administrations Recorded diphenhydrAMINE (BENADRYL) injection 25 mg Start Date:05/28/13, End Date:05/28/13, Frequency:ONCE PRN *No Administrations Recorded ceFAZolin (ANCEF) 1 g in dextrose 50 ml IVPB Start Date:05/28/13, End Date:05/28/13, Frequency:ONCE *No Administrations Recorded lidocaine 1% (PF) 10 mg/mL (1 %) injection Start Date:05/28/13, End Date:-, Frequency:- *No Administrations Recorded lactated ringers infusion Start Date:05/28/13, End Date:-, Frequency:- *No Administrations Recorded oxyCODONE-acetaminophen (PERCOCET) 5-325 mg per tablet Start Date:05/28/13, End Date:-, Frequency:- *No Administrations Recorded lidocaine 1% 1 % injection Start Date:05/28/13, End Date:-, Frequency:- *No Administrations Recorded bupivacaine 0.25% (PF) (SENSORCAINE) 0.25 % (2.5 mg/mL) injection Start Date:05/28/13, End Date:-, Frequency:- *No Administrations Recorded dexamethasone (DECADRON) 4 mg/mL injection Start Date:05/28/13, End Date:-, Frequency:- *No Administrations Recorded documented in this encounter Plan of Treatment Not on filedocumented as of this encounter Procedures Procedure Name Priority Date/Time Associated Diagnosis Comme nts SURGICAL PATH, PARK Routine 05/28/2013 7:00 AM Re sults for this NICOLLET CDT procedure are i n the results section. documented in this encounter Results Pathology Report (05/28/2013 7:00 AM CDT) [facility] gist Method Time Signature Path: ?FINAL SURGICAL PATHOLOGY REP ORT HP CONVERSION Pathology #: [id number] ? Date Obtained: 05/28/2013 ?Date Received: 05/28/2013 DIAGNOSIS: Soft tissue, left foot, excisional biopsy: - Ganglion cyst. ?MELISSA PAYAN MD ? (electronic signatur e) ? 05/29/2013 ??14:5 9 CLINICAL NOTES: Lesion ORGAN/TISSUE SITE: Left foot GROSS DESCRIPTION: The specimen is labeled left foot lesion and consists of a 2.2 x 2.1 x 1.0 cm portion of randle-pink tissue. Cross sections reveal a unilocular cyst measuring 1.5 cm in greatest dimension, filled with a thin, clear serous fluid. Math Specialist sections are submitted in [id number] . ?WEYAL MICROSCOPIC DESCRIPTION: Microscopic examination performed. CPT Codes: ? End of Report Specimen Anatomical Collection Method Collection Time Receive d Time (Source) Location / / Volume Laterality OTHER / Unknown 05/28/2013 7:00 AM 2013 7:00 CDT AM CDT Elizabeth Hurtado DPM LAB_1 Performing Organization Address City/State/ZIP Code Phon e Number HP CONVERSION documented in this encounter Visit Diagnoses Not on filedocumented in this encounter Care Teams Dog Warden Relationship Specialty Start Date End Date Denisse Sue DO PCP - General 05/12/13 04/04/16 [address] [place] [address] documented as of this encounter
--- OUTSIDE RECORDS SUMMARY | 2021-10-02 13:30 | XMS_ITS | Encounter Summary ---
:1985 Author Organization [facility] Address [address] [place] [address] Care Team Providers Name Role Phone Denisse Sue DO Primary Care Provider Encounter Details Date Type Department Care Team Description 05/12/2013 Lab Visit [facility] [address] [address] Social History Tobacco Use Types Packs/Day Years Used Date Smoking Tobacco: Never Assessed Sex Assigned at Date Recorded Not on file documented as of this encounter Plan of Treatment Not on filedocumented as of this encounter Procedures Procedure Name Priority Date/Time Associated Diagnosis Comme nts HEMOGLOBIN, BLOOD Routine 05/12/2013 8:03 AM Anemia Resu lts for this CDT procedure are i n the results section. documented in this encounter Results Hemoglobin, Blood (05/12/2013 8:03 AM CDT) athologist Signature Hemoglobin 12.2 11.8 - 15.5 HP CONVERSION g/dL Specimen Anatomical Collection Method Collection Time Receive d Time (Source) Location / / Volume Laterality 05/12/2013 8:03 AM 4 8:03 CDT AM CDT Narrative HP CONVERSION - 05/12/2013 8:23 AM CDT Performed at [facility], [address] [place] [address] Denisse Sue DO LAB_1 Performing Organization Address City/State/ZIP Code Phon e Number HP CONVERSION documented in this encounter Visit Diagnoses Diagnosis Anemia Anemia, unspecified documented in this encounter Care Teams Technical Support Engineer Relationship Specialty Start Date End Date Denisse Sue DO PCP - General 05/12/13 [address] [place] [address] documented as of this encounter
--- OUTSIDE RECORDS SUMMARY | 2021-10-02 13:30 | XMS_ITS | Encounter Summary ---
:1985 Author Organization [facility] Address [address] [place] [address] Care Team Providers Name Role Phone Md MINA Leigh Primary Care Provider Reason for Visit Reason Comments MASS Encounter Details Date Type Department Care Team Description 03/31/2013 Initial Consult [facility] [address] Left ankle pain (Primary Dx); Podiatric MedSurrossy Gilliam DPM Localized superficial swelling, mass, or lump [address] [facility] [address] [facility] [place] [address] [phone] Social History Tobacco Use Types Packs/Day Years Used Date Smoking Tobacco: Never Assessed Sex Assigned at Date Recorded Not on file documented as of this encounter Progress Notes Elizabeth Hurtado DPM - 03/31/2013 1:08 PM CST Progress Notes signed by Elizabeth Hurtado DPM at 04/05/13 1609 Author: Elizabeth Hurtado DPM Service: (none) Author Type: Physician Filed: 04/05/13 1605 Note Time: 03/31/13 1435 Status: Signed Cross Country Coach: Elizabeth Hurtado DPM (Physician) NAME: ODESSA CHE MR#: [id number] CSN: [id number] AUTHENTICATING CLINICIAN: Elizabeth Hurtado DPM CONFIRM #: [id number] LOC: 439 CLINIC PROGRESS NOTE DATE OF VISIT: 03/31/2013 : 1985 SUBJECTIVE: Patient is a 27-year-old female seen today with concerns of a soft tissue mass to her left foot. Shenotes the lesion present for at least the past month, and seems to be in an area that was irritated from her running shoes rubbing. It is not painful for her. There has been no history of injury or trauma. PAST MEDICAL HISTORY/CURRENT MEDICAL PROBLEMS: Anemia, hyperhidrosis. CURRENT MEDICATIONS: Reviewed and updated in [employer]. ALLERGIES: No known drug allergies. FAMILY HISTORY: She has a grandparent with leukemia and diabetes. SOCIAL HISTORY: Patient is single. Nonsmoker. Drinks alcohol 1 drink a week. 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 REVIEW OF SYSTEMS: Positive for the left ankle soft tissue mass. Otherwise, remaining complete review of systems today are negative. OBJECTIVE: Weight 115 pounds. Height 5 feet 4 inches. GENERAL: Patient is alert and oriented, pleasant, 27-year-old female who is in no apparent distress. LOWER EXTREMITY EXAM: Neurovascular status is intact to the left foot. Skin is intact without rashesor scaling. There is a large palpable soft tissue mass at least 2.5 cm diameter overlying the proximal medial ankle area at the level of the tibialis anterior tendon. Seems to overlie the midfoot area.It is somewhat fluctuant in nature consistent with likely ganglion cyst distal to this, but tibialisanterior tendon seems to be intact. Ankle and subtalar joint motion are full, pain-free, and unrestricted. ASSESSMENT: Soft tissue mass, left foot. PLAN: Reviewed findings with the patient. We discussed to better characterize the mass to make sure the underlying tibialis anterior tendon is normal, that we would proceed with an MRI, which she is agreeable to. MRI ordered with contrast. We discussed treatments for this include aspiration versus definitive treatment requires surgical excision and pathology review. She will follow up after MRI to discuss results. SMS:MEDQ C: CONFIRM #: [id number] ORK RELATIONS CONSULTANT documented in this encounter Plan of Treatment Not on filedocumented as of this encounter Visit Diagnoses Diagnosis Left ankle pain - Primary Pain in joint, ankle and foot Localized superficial swelling, mass, or lump documented in this encounter Care Teams Surgical Instruments Inspector Relationship Specialty Start Date End Date Md Leigh MD PCP - General 05/26/10 05/11/13 [place] [address] documented as of this encounter
--- OUTSIDE RECORDS SUMMARY | 2021-10-02 13:30 | XMS_ITS | Encounter Summary ---
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 [facility] 5th Floor Screening for iron deficiency anemia; [place], [place] reening for lipoid disorders; [id number] Need for Tdap vaccination; [phone] (Wo rk) Special screening examination for other specified viral diseases; Bloating; Urinary urgency Social History Tobacco Use Types Packs/Day Years Used Date Smoking Tobacco: Never Assessed Sex Assigned at Date Recorded Not on file documented as of this encounter Last Filed Vital Signs Vital Sign Reading Time Taken Comments Blood Pressure 95/65 07/30/2012 10:58 AM CDT Pulse 51 07/30/2012 10:58 AM CDT Temperature - - Respiratory Rate - - Oxygen Saturation - - Inhaled Oxygen Concentration - - Weight 52.3 kg (115 lb 6.4 oz) 07/30/2012 10:58 AM CDT Height 165.1 cm (5' 5) 07/30/2012 10:58 AM CDT Body Mass Index 19.2 07/30/2012 10:58 AM CDT documented in this encounter Patient Instructions Patient InstructionsTessa Truong LPN - 07/30/2012 11:58 AM CDT Thank you for enrolling in [employer]. Please follow the instructions below to securely access your online medical record. PicApp allows you to send messages to your doctor, view your test results, renewyour prescriptions, schedule appointments, and more. How Do I Sign Up? 1. In your Internet browser, go to: [email or web address] 2. Click on the Sign Up Now link in the Sign In box. You will see the New Member Sign Up page. 3. Enter your PicApp Access Code exactly as it appears below. You will not need to use this code after you???ve completed the sign-up process. If you do not sign up before the expiration date, you must request a new code. PicApp Access Code: [email or web address] Expires: 08/29/2012 11:05 AM 4. Enter your Social Security Number ([id number]) and Date of (mm/dd/yyyy) as indicated and click Submit. You will be taken to the next sign- up page. 5. Create a PicApp ID. This will be your PicApp login ID and cannot be changed, so think of one that is secure and easy to remember. 6. Create a PicApp password. You can change your password at any time. 7. Enter your Password Reset Question and Answer. This can be used at a later time if you forget your password. 8. Enter your e-mail address. You will receive e-mail notification when new information is availablein PicApp. 9. Click Sign Up. You can now view your medical record. Additional Information If you have questions, you can call [phone] to talk to our PicApp staff. Remember, PicApp is NOT to be used for urgent needs. For medical emergencies, dial 911. It is good to meet with you for your Well Visit today. You brought up concerns related with bloating, urinary urgency and variations with your menstrual flow duration. I gave you an article to review addressing bloating and monitoring symptoms. If you continue to have concerns, I recommend you meet with Family Medicine. Your menstrual variation is fine. Please let me know if you experience bleeding between periods or flowing longer than 10 days. Please go to lab for urine specimen, cholesterol evaluation, std screening and follow up on anemia. I will forward all results once they are available. Please contact me at [phone] if questions. documented in this encounter Progress Notes Nicholas Kay APRN, CNP - 08/02/2012 9:34 PM CDT Subjective: Simona Che is a 26 y.o. female with an LMP of: Patient's last menstrual period was 07/22/2012. Presents for an annual exam. She has multiple concerns today. #1. Increased urgency related to urination. #2 show no bloating bearing degrees which typically seems to resolve with her.. She has had no changes with her bowel movements no concerns there. 3. It was very menstrual flow, it can be 5-7 days but it is very light to medium to heavy periods currently not sexually active but does request full STD screening stating last sexual contact December 2011. She has history of ferritin of 4 and a hemoglobin of 8.5. I would recommend followup evaluation regarding his low abnormal results. Last exam was 06-18-10 Past Medical History: Past Medical History Diagnosis Date ??? Anemia ??? Irregular menstrual cycle ??? Migraine NOS/not intrcbl ??? Immunization, other disease ??? Trauma 08/2011 Fractured patella ??? Urinary tract infection 05/2010 Pyelonephritis Past Surgical History: Past Surgical History Procedure Laterality Date ??? [place] tooth extraction Family History: Family History Problem Relation Age of Onset ??? Thyroid Disease Mother ??? High Cholesterol Father ??? Cancer Maternal Grandfather leukemia ??? Diabetes Paternal Grandfather Gynecologic History: Period Cycle (Days): (Every 28-30 days) Period Duration (Days): (5-7 day duration) Period Pattern: Irregular Menstrual Flow: (Intensity of flow has varied from light/heavy/normal ) Dysmenorrhea: Mild Dysmenorrhea Symptoms: Cramping Obstetric History T0 TAB0 SAB0 E0 M0 L0 History Social History ??? Marital Status: Single Spouse Name: N/A Number of Children: 0 ??? Years of Education: N/A Occupational History ??? [employer] Social History Main Topics ??? Smoking status: Never Smoker ??? Smokeless tobacco: Not on file ??? Alcohol Use: Yes 1-2 drinks per week ??? Drug Use: No ??? Sexually Active: Not Currently -- Male partner(s) Control/ Protection: None Other Topics Concern ??? Bike Helmet Yes ??? City Water Yes ??? Exercise Yes Yoga one time/week. Running 3-10 miles 5-6 days a week ??? Guns In Home No ??? Seat Belt Yes ??? Special Diet No Social History Narrative ??? No narrative on file Health Maintenance: Lab Results Component Value Date/Time Cholesterol 159 07/30/2012 1211 HDL Cholesterol 84 07/30/2012 1211 No results found for this basename: gluc Immunization History Administered Date(s) Administered ??? DTP 02/11/1984, 04/17/1984, 06/12/1984 ??? MMR 03/12/1985 ??? Oral Polio Vaccine 02/11/1984, 04/17/1984 ??? Tdap (Boostrix) 07/30/2012 Current Outpatient Prescriptions Medication Sig Dispense Refill ??? clindamycin (CLEOCIN T) 1 % lotion Apply topically 2 times daily. to axilla. 60 mL 11 No current facility-administered medications for this visit. No Known Allergies Review of Systems Ears, nose, mouth, throat, and face: negative Respiratory: negative Cardiovascular: negative Gastrointestinal: positive for Abdominal bloating resolves with menstrual cycle Genitourinary:positive for Urinary urgency Integument/breast: negative Musculoskeletal:negative Objective: BP 95/65 Pulse 51 Ht 5' 5 (1.651 m) Wt 115 lb 6.4 oz (52.345 kg) BMI 19.2 kg/m2 LMP 07/22/2012 General Appearance: Alert, cooperative, no distress, appears stated age Eyes: PERRL, conjunctiva/corneas clear, both eyes. Ears: Normal TM's and external ear canals, both ears Throat: Lips, mucosa, and tongue normal; teeth and gums normal Neck: Supple, symmetrical, trachea midline, no adenopathy; thyroid: no enlargement/tenderness/nodules; Lungs: Clear to auscultation bilaterally, respirations unlabored Chest Wall: No tenderness or deformity Heart: Regular rate and rhythm, S1 and S2 normal, no murmur, Breast Exam: No tenderness, masses, or nipple abnormality Abdomen: Soft, non-tender, no masses, no organomegaly Genitalia: Normal female without lesion, discharge or tenderness.vagina: No erythema, no atypical discharge. Cervix: Pap obtained. culture for gonorrhea and Chlamydia obtained. Bimanual exam: Uterus issmooth, nontender with motion, left and right adnexa unremarkable. Rectal: Normal tone, no masses or tenderness Extremities: Extremities normal, atraumatic, no cyanosis or edema Skin: Skin color, texture, turgor normal, no rashes or lesions Lymph nodes: Cervical, supraclavicular, and axillary nodes normal . Assessment: Diagnosis (ICD9) and Associated Orders 1. Routine general medical examination at a health care facility (V70.0) 2. Screening for malignant neoplasm of the cervix (V76.2) Pap Smear Screening [PAPL] 3. Special screening examination for unspecified chlamydial disease (V73.98) Sexually Transmitted Disease Probe [STDPR] - Swab 4. Screening for iron deficiency anemia (V78.0) Complete Blood Count - No Diff [ABC], Ferritin [ISACC] 5. Screening for lipoid disorders (V77.91) Cholesterol, Total & HDL [CHS] 6. Need for Tdap vaccination (V06.1) Tdap (BOOSTRIX) 7. Special screening examination for other specified viral diseases (V73.89) HIV Antibody [HIV], Treponemal Antibody, Hepatitis Bs Antigen [HBAG], Hepatitis C Antibody [HCAB] 8. Bloating (787.3) 9. Urinary urgency (788.63) Urinalysis Routine Hold Culture (URH) Plan: multiple concerns, total time 40 minutes addressing urinary urgency concern of bloating history of anemia and low ferritin. The suggest the urgency is related to holding the bladder. I would suggest that when she first feels the sensation to void she go ahead and empty her bladder and see if this is assisted in reducing some of the symptoms. I gave her an article from up-to-date regarding abdominal bloating. Reassured her if her symptoms resolve with menses, it is of no further concern , this would be consistent with normal menstrual cycle influence on the intestinal tract if it is persistent, she needs to be seen in internal medicine .I will contact her with the results if they're abnormal I wi ll forward results to patient directly .total time with patient 40 minutes counseling time 25 addressing bloating concerns associated with menstrual cycle addressing urinary urgency and history of low ferritin and low hemoglobin Orders Placed This Encounter ??? Sexually Transmitted Disease Probe [STDPR] - Swab Order Specific Question: Ordering Provider? (, Miladys, POLARITY TESTER, or PA Only) Answer: NICHOLAS KAY [[id number]] ??? Tdap (BOOSTRIX) ??? Pap Smear Screening [PAPL] Order Specific Question: Ordering Provider? (Miladys [place]te, POLARITY TESTER, or PA Only) Answer: NICHOLAS KAY [[id number]] Order Specific Question: Is the required paper requisition completed? Answer: Yes ??? Complete Blood Count - No Diff [ABC] Standing Status: Future Number of Occurrences: 1 Standing Expiration Date: 07/30/2013 Order Specific Question: Ordering Provider? (Miladys Al[place]te, POLARITY TESTER, or PA Only) Answer: NICHOLAS KAY [[id number]] ??? Ferritin [ISACC] Standing Status: Future Number of Occurrences: 1 Standing Expiration Date: 07/30/2013 Order Specific Question: Ordering Provider? (Miladys [place]te, POLARITY TESTER, or PA Only) Answer: NICHOLAS KAY [[id number]] ? ? Cholesterol, Total & HDL [CHS] Standing Status: Future Number of Occurrences: 1 Standing Expiration Date: 07/30/2013 Order Specific Question: Ordering Provider? (Miladys [place]te, POLARITY TESTER, or PA Only) Answer: NICHOLAS KAY [[id number]] ??? HIV Antibody [HIV] Standing Status: Future Number of Occurrences: 1 Standing Expiration Date: 07/30/2013 Order Specific Question: Ordering Provider? (Miladys [place]te, POLARITY TESTER, or PA Only) Answer: NICHOLAS KAY [[id number]] ??? Treponemal Antibody Standing Status: Future Number of Occurrences: 1 Standing Expiration Date: 07/30/2013 Order Specific Question: Ordering Provider? (Miladys [place], POLARITY TESTER, or PA Only) Answer: NICHOLAS KAY [[id number]] ??? Hepatitis Bs Antigen [HBAG] Standing Status: Future Number of Occurrences: 1 Standing Expiration Date: 07/30/2013 Order Specific Question: Ordering Provider? (, Res, POLARITY TESTER, or PA Only) Answer: NICHOLAS KAY [[id number]] ??? Hepatitis C Antibody [HCAB] Standing Status: Future Number of Occurrences: 1 Standing Expiration Date: 07/30/2013 Order Specific Question: Ordering Provider? (, Res, POLARITY TESTER, or PA Only) Answer: NICHOLAS KAY [[id number]] ??? Urinalysis Routine Hold Culture (URH) Standing Status: Future Number of Occurrences: 1 Standing Expiration Date: 07/30/2013 Order Specific Question: Ordering Provider? (, Res, POLARITY TESTER, or PA Only) Answer: NICHOLAS KAY [[id number]] Order Specific Question: Urine Collection Type Answer: Urine:clean catch ??? Pap Smear Patient Instructions Thank you for enrolling in PicApp. Please follow the instructions below to securely access your online medical record. PicApp allows you to send messages to your doctor, view your test results, renewyour prescriptions, schedule appointments, and more. How Do I Sign Up? 1. In your Internet browser, go to: [email or web address] 2. Click on the Sign Up Now link in the Sign In box. You will see the New Member Sign Up page. 3. Enter your PicApp Access Code exactly as it appears below. You will not need to use this code after you???ve completed the sign-up process. If you do not sign up before the expiration date, you must request a new code. PicApp Access Code: [email or web address] Expires: 08/29/2012 11:05 AM 4. Enter your Social Security Number ([id number]) and Date of (mm/dd/yyyy) as indicated and click Submit. You will be taken to the next sign- up page. 5. Create a PicApp ID. This will be your PicApp login ID and cannot be changed, so think of one that is secure and easy to remember. 6. Create a PicApp password. You can change your password at any time. 7. Enter your Password Reset Question and Answer. This can be used at a later time if you forget your password. 8. Enter your e-mail address. You will receive e-mail notification when new information is availablein PicApp. 9. Click Sign Up. You can now view your medical record. Additional Information If you have questions, you can call [phone] to talk to our PicApp staff. Remember, PicApp is NOT to be used for urgent needs. For medical emergencies, dial 911. It is good to meet with you for your Well Visit today. You brought up concerns related with bloating, urinary urgency and variations with your menstrual flow duration. I gave you an article to review addressing bloating and monitoring symptoms. If you continue to have concerns, I recommend you meet with Family Medicine. Your menstrual variation is fine. Please let me know if you experience bleeding between periods or flowing longer than 10 days. Please go to lab for urine specimen, cholesterol evaluation, std screening and follow up on anemia. I will forward all results once they are available. Please contact me at [phone] if questions. Current Control:N/A documented in this encounter Plan of Treatment Not on filedocumented as of this encounter Procedures Procedure Name Priority Date/Time Associated Diagnosis Comme nts SEXUALLY TRANSMITTED Routine 07/30/2012 12:03 Special screenin g Results for this DISEASE PROBE PM CDT examination for procedure a re in unspecified the results chlamydial disease section. ANATOMICAL PATH Routine 07/30/2012 12:02 Results for this LIQUID BASED PM CDT procedure are i n the results section. PAP SMEAR SCREENING Routine 07/30/2012 12:02 Screening for Res ults for this PM CDT malignant neoplasm procedure are in of the cervix the results section. documented in this encounter Results SEXUALLY TRANSMITTED DISEASE PROBE (07/30/2012 12:03 PM CDT) Component Value Ref Test [facility] Method Time Signature Source Endocervical for HP CONVERSION molecular testing Site HP CONVERSION Chlamydia Chlamydia HP CONVERSION Trach DNA trachomatis NEGATIVE by DNA amplification GC DNA Neisseria HP CONVERSION gonorrhea NEGATIVE by DNA amplification. Specimen (Source) Anatomical Collection Method Collection Time Re ceived Time Location / / Volume Laterality Endocervical for 07/30/2012 12:03 molecular testing: PM CDT Nicholas Kay APRN, CNP LAB_1 Performing Organization Address [facility] Phon e Number HP CONVERSION Pap Smear (07/30/2012 12:02 PM CDT) Specimen (Source) Anatomical Collection Method Collection Time Re ceived Time Location / / Volume Laterality 07/30/2012 12:02 PM CDT Narrative HP CONVERSION - 08/04/2012 3:57 PM CDT FINAL GYNECOLOGICAL CYTOLOGY REPORT Pathology #: [id number] ?Date Obtained: 07/30/2012 ? Date Received: 07/31/2012 INTERPRETATION/RESULTS: Negative for Intraepithelial Lesion or M alignancy SPECIMEN ADEQUACY: Satisfactory for Evaluation. ??Endocervi bre cells/transformation zone component present. Verified on 08/04/2012 ??by JOSE C SALMON(ASCP) (electronic signature) CLINICAL NOTES: ?LMP: Not Stated LIQUID BASED PAP SMEAR SPECIMEN TYPE: ?CERVICAL WITH REFLEX TO HPV IF ASCUS PLEASE NOTE: The pap smear is a screening test design ed to aid in the detection of cervical cancer and its pre cursor lesions. It is not a diagnostic procedure and gulshan uld not be used as the sole means of detecting cervical cancer. Both false-positive and false-negative report s may occur. ? End of Report Nicholas Kay APRN, CNP LAB_1 Performing Organization Address [facility] Phon e Number HP CONVERSION Pap Smear Screening (07/30/2012 12:02 PM CDT) P athologist Signature PAP Routine Collected HP CONVERSION Specimen Anatomical Collection Method Collection Time Receive d Time (Source) Location / / Volume Laterality 07/30/2012 12:02 07/31/2012 5:33 PM CDT AM CDT Nicholas Kay APRN, CNP LAB_1 Performing Organization Address [facility] Phon e Number HP CONVERSION documented in this encounter Visit Diagnoses Diagnosis Routine general medical examination at a health care facility - Primary Screening for malignant neoplasm of the cervix Special screening examination for unspec ified chlamydial disease Screening for iron deficiency anemia Screening for lipoid disorders Need for Tdap vaccination Need for prophylactic vaccination with c ombined [id number] (DTP) vaccine Special screening examination for other specified viral diseases Bloating Flatulence, eructation, and gas pain Urinary urgency Urgency of urination documented in this encounter Care Teams Production Staff Worker Relationship Specialty Start Date End Date Md Leigh MD PCP - General 05/26/10 05/11/13 [place] [address] documented as of this encounter
--- OUTSIDE RECORDS SUMMARY | 2021-10-02 13:30 | XMS_ITS | Encounter Summary ---
:1985 Author Organization [facility] Address [address] [place] [address] Care Team Providers Name Role Phone Jie Farah DO Primary Care Provider Reason for Visit Reason Comments MEDICATION CHECK Encounter Details Date Type Department Care Team Description 05/14/2016 Office Visit [facility] [address], [place] graine without aura Family Medicine DO and without status [address] rain[address], [address] intractable (Primary [place], [place] Dx ) [phone] [id number] (Wo rk) Social History Tobacco Use Types [...] Sign Reading Time Taken Comments Blood Pressure 112/76 05/14/2016 7:49 AM CDT Pulse 64 05/14/2016 7:49 AM CDT Temperature - - Respiratory Rate - - Oxygen Saturation - - Inhaled Oxygen Concentration - - Weight 54.8 kg (120 lb 12.8 oz) 05/14/2016 7:49 AM CDT Height - - Body Mass Index 19.35 03/04/2016 9:31 AM EVP documented in this encounter Progress Notes Jie Farah DO - 05/14/2016 9:21 AM CDT Subjective: Patient ID: Simona Che is a 30 y.o. female. Chief Complaint: HPI Comments: Here today for medication check. Has been taking imitrex for migraines. Seems to work ok, usually has to take a second pill to get the headache to completely resolve. Usually uses all 9 tablets a month. Has light sensitivity but not sound sensitivity. Review of Systems All other systems reviewed and are negative. Objective: Physical Exam Constitutional: She appears well-developed and well-nourished. No distress. HENT: Head: Normocephalic and atraumatic. Right Ear: External ear normal. Left Ear: External ear normal. Nose: Nose normal. Mouth/Throat: Oropharynx is clear and moist. Cardiovascular: Normal rate, regular rhythm and normal heart sounds. Pulmonary/Chest: Effort normal and breath sounds normal. No respiratory distress. She has no wheezes. Nursing note and vitals reviewed. Assessment: ICD-10-CM 1. Migraine without aura and without status migrainosus, not intractable G43.009 Plan: Medication renewed today. If starts to have more frequent headaches or not responding will return toclinic. Discussed if the become more frequent can try a prophylactic medication. documented in this encounter Plan of Treatment Not on filedocumented as of this encounter Visit Diagnoses Diagnosis Migraine without aura and without status migrainosus, not intractable - Primary Migraine without aura, without mention o f intractable migraine without mention of status migrainosus documented in this encounter Care Teams Epic Willow Specialist Relationship Specialty Start Date End Date Jie Farah DO PCP - General Family Practice 04/05/16 [address] [place] [address] documented as of this encounter
--- OUTSIDE RECORDS SUMMARY | 2021-10-02 13:30 | XMS_ITS | Encounter Summary ---
:1985 Author Organization [facility] Address [address] [place] [address] Care Team Providers Name Role Phone Denisse Sue DO Primary Care Provider Reason for Visit Reason Comments HEADACHE,MIGRAINE Encounter Details Date Type Department Care Team Description 06/01/2015 Office Visit [facility] [address] Denisse Sue, Chronic migraine Family Medicine [address] without aura without [address] status migrainosus, [address] [place], [place] [address] (Primary Dx) [address] [phone] Social History Tobacco Use Types Packs/Day Years Used Date Smoking Tobacco: Never Assessed Sex Assigned at Date Recorded Not on file documented as of this encounter Last Filed Vital Signs Vital Sign Reading Time Taken Comments Blood Pressure 102/87 06/01/2015 7:35 AM CDT Pulse 83 06/01/2015 7:35 AM CDT Temperature - - Respiratory Rate - - Oxygen Saturation - - Inhaled Oxygen Concentration - - Weight 54.9 kg (121 lb) 06/01/2015 7:35 AM CDT Height 162.6 cm (5' 4) 06/01/2015 7:35 AM CDT Body Mass Index 20.77 06/01/2015 7:35 AM CDT documented in this encounter Patient Instructions Patient InstructionsDenisse Sue, - 06/01/2015 7:55 AM CDT Images from the original note were not included. magnesium 400mg a day B2 400mg a day Migraine Headache: Care Instructions Your Care Instructions Migraines are painful, throbbing headaches that often start on one side of the head. They may cause nausea and vomiting and make you sensitive to light, sound, or smell. Without treatment, migraines can last from 4 hours to a few days. Medicines can help prevent migraines or stop them after they have started. Your doctor can help you find which ones work best for you. Follow-up care is a wise part of your treatment and safety. Be sure to make and go to all appointments, and call your doctor if you are having problems. It's also a good idea to know your test results and keep a list of the medicines you take. How can you care for yourself at home? ?? Do not drive if you have taken a prescription pain medicine. ?? Rest in a quiet, dark room until your headache is gone. Close your eyes, and try to relax or go to sleep. Don't watch TV or read. ?? Put a cold, moist cloth or cold pack on the painful area for 10 to 20 minutes at a time. Put a thin cloth between the cold pack and your skin. ?? Use a warm, moist towel or a heating pad set on low to relax tight shoulder and neck muscles. ?? Have someone gently massage your neck and shoulders. ?? Take your medicines exactly as prescribed. Call your doctor if you think you are having a problemwith your medicine. You will get more details on the specific medicines your doctor prescribes. ?? Be careful not to take pain medicine more often than the instructions allow. You could get worse or more frequent headaches when the medicine wears off. To prevent migraines ?? Keep a headache diary so you can figure out what triggers your headaches. Avoiding triggers may help you prevent headaches. Record when each headache began, how long it lasted, and what the pain waslike. (Was it throbbing, aching, stabbing, or dull?) Write down any other symptoms you had with the headache, such as nausea, flashing lights or dark spots, or sensitivity to bright light or loud noise. Note if the headache occurred near your period. List anything that might have triggered the headache. Triggers may include certain foods (chocolate, cheese, wine) or odors, smoke, bright light, stress, or lack of sleep. ?? If your doctor has prescribed medicine for your migraines, take it as directed. You may have medicine that you take only when you get a migraine and medicine that you take all the time to help prevent migraines. ?? If your doctor has prescribed medicine for when you get a headache, take it at the first sign of a migraine, unless your doctor has given you other instructions. ?? If your doctor has prescribed medicine to prevent migraines, take it exactly as prescribed. Call your doctor if you think you are having a problem with your medicine. ?? Find healthy ways to deal with stress. Migraines are most common during or right after stressful times. Take time to relax before and after you do something that has caused a migraine in the past. ?? Try to keep your muscles relaxed by keeping good posture. Check your jaw, face, neck, and shoulder muscles for tension. Try to relax them. When you sit at a desk, change positions often. And make sure to stretch for 30 seconds each hour. ?? Get plenty of sleep and exercise. ?? Eat meals on a regular schedule. Avoid foods and drinks that often trigger migraines. These include chocolate, alcohol (especially red wine and port), aspartame, monosodium glutamate (MSG), and someadditives found in foods (such as hot dogs, perez, cold cuts, aged cheeses, and pickled foods). ?? Limit caffeine. Don't drink too much coffee, tea, or soda. But don't quit caffeine suddenly. Thatcan also give you migraines. ?? Do not smoke or allow others to smoke around you. If you need help quitting, talk to your doctor about stop-smoking programs and medicines. These can increase your chances of quitting for good. ?? If you are taking control pills or hormone therapy, talk to your doctor about whether they are triggering your migraines. When should you call for help? Call 911 anytime you think you may need emergency care. For example, call if: ?? You have signs of a stroke. These may include: ?? Sudden numbness, paralysis, or weakness in your face, arm, or leg, especially on only one side ofyour body. ?? Sudden vision changes. ?? Sudden trouble speaking. ?? Sudden confusion or trouble understanding simple statements. ?? Sudden problems with walking or balance. ?? A sudden, severe headache that is different from past headaches. Call your doctor now or seek immediate medical care if: ?? You have new or worse nausea and vomiting. ?? You have a new or higher fever. ?? Your headache gets much worse. Watch closely for changes in your health, and be sure to contact your doctor if: ?? You are not getting better after 2 days (48 hours). Where can you learn more? Go to [email or web address] and enter U690 in the search box. Current as of: April 15, 2014 Content Version: 107 ?? 4987-6082 [employer], [employer]. documented in this encounter Progress Notes Denisse Sue DO - 06/01/2015 8:31 AM CDT Subjective: Simona Che is a 29 y.o. female who presents for evaluation of headache. Symptoms began about several years ago. Generally, the headaches last about 2 days and occur once per week, ususally on Sat-Sun. Also has worse [place] week prior to her menses. They seem worse on weekends. The headaches are usually throbbing. Recently, the headaches are increasing in frequency. Work attendance or other daily activities are affected by the headaches. Precipitating factors include menses. The headaches are usually not preceded by an aura. Associated neurologic symptoms: light sensitivity. 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 Home treatment has included Excedrin, ibuprofen, Imitrex oral, darkening the room, rest, sleeping with excellent improvement. Other history includes: nothing pertinent. Family history includes no known familymembers with significant headaches. Patient's medications, allergies, past medical, surgical, social and family histories were reviewed and updated as appropriate. Review of Systems Pertinent items are noted in HPI. Objective: BP 102/87 mmHg Pulse 83 Ht 5' 4 (1.626 m) Wt 121 lb (54.885 kg) BMI 20.76 kg/m2 General appearance: alert, cooperative, no distress, appears stated age Head: Normocephalic, without obvious abnormality, atraumatic Skin: Skin color, texture, turgor normal. No rashes or lesions Neurologic: Grossly normal Assessment: Common migraine Plan: Continue present treatment and plan. Lie in darkened room and apply cold packs prn for pain. Episodic therapy with triptan therapy and NSAIDs due to low frequency of pain. Side effect profile discussed in detail. Asked to keep headache diary. Patient reassured that neurodiagnostic workup not indicated from benign H&P. Follow up in 6 months. Refills given documented in this encounter Plan of Treatment Not on filedocumented as of this encounter Visit Diagnoses Diagnosis Chronic migraine without aura without st atus migrainosus, not intractable - Primary Chronic migraine without aura, without m ention of intractable migraine without mention of status migrainosus documented in this encounter Care Teams Anesthesiology Physician Relationship Specialty Start Date End Date Denisse Sue DO PCP - General 05/12/13 04/04/16 [address] [place] [address] documented as of this encounter
--- OUTSIDE RECORDS SUMMARY | 2021-10-02 13:30 | XMS_ITS | Encounter Summary ---
:1985 Author Organization [facility] Address [address] [place] [address] Care Team Providers Name Role Phone Md MINA Leigh Primary Care Provider Reason for Visit Reason Comments INJURY, KNEE Encounter Details Date Type Department Care Team Description 10/31/2011 Office Visit [facility] MD Elliott patella (Primary Dx) [address] [place] [address] [place], [place] [phone] (Wo rk) Social History Tobacco Use Types Packs/Day Years Used Date Smoking Tobacco: Never Assessed Sex Assigned at Date Recorded Not on file documented as of this encounter Progress Notes Angelica Thomas MD - 10/31/2011 4:48 PM CDT Progress Notes signed by Angelica Thomas MD at 11/06/11 3872 Author: Angelica Thomas MD Service: (none) Author Type: Physician Filed: 11/06/11 1625 Note Time: 10/31/11 1648 Status: Signed Enterprise Mobility Architect: Angelica Thomas MD (Physician) NAME: ODESSA CHE VISIT: [id number] DICTATING CLINICIAN: ANGELICA THOMAS MD JOB: [id number] Med JOB: [id number] LOC: 3711 CLINIC PROGRESS NOTE DATE OF VISIT: 10/31/2011 : 1985 PROBLEM: Left patella fracture. SUBJECTIVE: Ms. Che is now about 9 weeks post acute longitudinal patellar fracture. She has been out of the brace, attending physical therapy and notes that walking is pain free, descending steps is somewhat tenuous, and she is unable to kneel on her knee. She is not restricted in other ways, but has not begun her running program. She has successfully been exercising on the bike and recently on the elliptical physical trainer with no symptoms. OBJECTIVE: There is no tenderness to palpation of the left patella. There is no abnormal crepitus when comparing the amount of crepitus on the left knee to the right knee. She is able to perform partial squats normally on the right, on the left side she shows, however, dynamic valgus with mild pelvofemoral instability probably reflective of the strength deficits as a result of the injury. X-RAYS: X-rays were independently reviewed. Two views of the knee show healing patellar fracture. There is significant ossification over the prior films. Conclusion: Healing vertical patella fracture. PLAN: She will continue increasing her level of activity. Discussed a gradual return to running and symptoms to monitor. We also discussed rn long term care outcomes may be affected by this injury and the risks she has with patellofemoral disorder as she resumes her running program. I reemphasized the importance of her ongoing strengthening program she has learned in physical therapy. She will follow up only on a p.r.n. basis at this time. IM: 10/31/2011 05:00:54 pm MT: 18 documented in this encounter Plan of Treatment Not on filedocumented as of this encounter Procedures Procedure Name Priority Date/Time Associated Diagnosis Comme nts XR KNEE LT 2 VIEWS Routine 10/31/2011 4:26 PM Closed fracture of Results for this CDT patella procedure are i n the results section. documented in this encounter Results XR Knee Lt 2 Views (10/31/2011 4:26 PM CDT) Anatomical Region Laterality Modality Lower Extremity, Knee Other Specimen (Source) Anatomical Location Collection Method / Collectio n Time Received Time / Laterality Volume Narrative 11/06/2011 4:33 PM CDT Two views of the knee show healing siddiqui lar fracture. ??There is significant ossification over the prior films. Conclusion: ??Healing vertical patella f racture. RJJ/sja Procedure Note Angelica Thomas MD - 08/12/2015For matting of this note might be different from the original. Two views of the knee show healing siddiqui lar fracture. There is significant ossification over the prior films. Conclusion: Healing vertical patella fra cture. DANIELE/nano Angelica Thomas MD RAD GD documented in this encounter Visit Diagnoses Diagnosis Closed fracture of patella - Primary documented in this encounter Care Teams Geek Squad Agent Relationship Specialty Start Date End Date Md Lu, MD PCP - General 05/26/10 05/11/13 [place] [address] documented as of this encounter
--- OUTSIDE RECORDS SUMMARY | 2021-10-02 13:30 | XMS_ITS | Encounter Summary ---
:1985 Author Organization [facility] Address [address] [place] [address] Care Team Providers Name Role Phone Denisse Sue DO Primary Care Provider Reason for Visit Reason Comments Contraception Encounter Details Date Type Department Care Team Description 09/26/2014 [facility] Nanette Kay, Other bret al Obstetrics/Gynecolog DON GRANT counseling and advice y [address] for contraceptive [address] [facility] 5th Floor management ([place], [place] Dx ) [phone] (Wo rk) Social History Tobacco Use Types Packs/Day Years Used Date Smoking Tobacco: Never Assessed Sex Assigned at Date Recorded Not on file documented as of this encounter Last Filed Vital Signs Vital Sign Reading Time Taken Comments Blood Pressure 105/60 09/26/2014 3:09 PM CDT Pulse 54 09/26/2014 3:09 PM CDT Temperature - - Respiratory Rate - - Oxygen Saturation - - Inhaled Oxygen Concentration - - Weight 56.4 kg (124 lb 4.8 oz) 09/26/2014 3:09 PM CDT Height 168.3 cm (5' 6.25) 09/26/2014 3:09 PM CDT Body Mass Index 19.91 09/26/2014 3:09 PM CDT documented in this encounter Patient Instructions Patient InstructionsNanette Kay, JUANITA, DON - 10/02/2014 11:46 AM CDT Thank you for coming in today Kimberley to review options regarding control. We discussed the factthat previously you started Mircette oral contraceptives and noticed increased headaches. I have placed you on a control pill that is a different progesterone, estrogen is a low dose. You are fine to start the control pills today, you will be protected from after you have been onthe pill for 14 consecutive days. You will take active control pills for 3 weeks, and then had7 days of an active pills in which she can anticipate withdrawal bleeding or your 'period'. In the first 3 months on a new pill formula you may experience bleeding during the 3 weeks of active pills. If bleeding continues into the fourth cycle of pills, please contact me at [phone] or through [employer] to review options. Take care Kimberley. documented in this encounter Progress Notes Nanette Kay APRN, CNP - 10/02/2014 11:51 AM CDT SUBJECTIVE: Kimberley is a 28-year-old female presenting as a known patient to me to discuss control options. Recently had a complete physical exam on 12-22-13 with negative STD cultures. Previously has used condoms for contraception as well as use of Mircette in 2008. She stopped Mircetteafter the first cycle when she developed increased headaches. She would like to resume oral contraceptives. Past Medical History Diagnosis Date ??? Anemia ??? Irregular menstrual cycle ??? Migraine, unspecified, without mention of intractable migraine without mention of status migrainosus ??? Immunization, other disease ??? Trauma 08/2011 Fractured patella ??? Urinary tract infection 05/2010 Pyelonephritis ??? Varicella Past Surgical History Procedure Laterality Date ??? [place] tooth extraction History Social History ??? Marital Status: Single Spouse Name: N/A Number of Children: 0 ??? 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 Smoking status: Never Smoker ??? Smokeless tobacco: None ??? Alcohol Use: 0.0 oz/week 1-2 Not specified per week Comment: 1- 2 drinks per week ??? Drug Use: No ??? Sexual Activity: Partners: Male Control/ Protection: Condom Other Topics Concern ??? Bike Helmet Yes ??? City Water Yes ??? Exercise Yes Yoga one time/week. Running 3-10 miles 5-6 days a week ??? Guns In Home No ??? Seat Belt Yes ??? Special Diet No ??? Weight Concern No Social History Narrative Medications: Current Outpatient Prescriptions Medication Sig Dispense Refill ??? norethindrone-ethinyl estradiol (MICROGESTIN FE 03/15, ,) 1 mg-20 mcg (21)/75 mg (7) per tabletTake 1 tablet by mouth daily (every 24 hours). Follow package directions 84 tablet 0 No current facility-administered medications for this visit. Adverse Drug Reactions:has No Known Allergies. OBJECTIVE: Vital Signs:BP 105/60 mmHg Pulse 54 Ht 5' 6.25 (1.683 m) Wt 124 lb 4.8 oz (56.382 kg) BMI 19.91 kg/m2 LMP 09/20/2014 (Exact Date) Kimberley presents in no acute distress. Chart reviewed. Mircette was prescribed given history of headaches without aura. We'll initiate Microgestin 03/15. ASSESSMENT: Initiation of oral contraceptives without known contraindications PLAN: Risks, benefits, correct usage of ocps reviewed with patient. Initiate Microgestin 03/15, 3 months, no refill . Return to clinic November 2014 for ongoing preventive health care. Patient Instructions Thank you for coming in today Kimberley to review options regarding control. We discussed the factthat previously you started Mircette oral contraceptives and noticed increased headaches. I have placed you on a control pill that is a different progesterone, estrogen is a low dose. You are fine to start the control pills today, you will be protected from after you have been onthe pill for 14 consecutive days. You will take active control pills for 3 weeks, and then had7 days of an active pills in which she can anticipate withdrawal bleeding or your 'period'. In the first 3 months on a new pill formula you may experience bleeding during the 3 weeks of active pills. If bleeding continues into the fourth cycle of pills, please contact me at [phone] or through [employer] to review options. Take care Kimberley. The patient was discharged ambulatory and in stable condition. documented in this encounter Plan of Treatment Not on filedocumented as of this encounter Visit Diagnoses Diagnosis Other general counseling and advice for contraceptive management - Primary documented in this encounter Care Teams Fruit Loader Relationship Specialty Start Date End Date Denisse Sue DO PCP - General 05/12/13 04/04/16 [address] [place] [address] documented as of this encounter
--- OUTSIDE RECORDS SUMMARY | 2021-10-02 13:30 | XMS_ITS | Encounter Summary ---
:1985 Author Organization [facility] Address [address] [place] [address] Care Team Providers Name Role Phone Denisse Sue Primary Care Provider Reason for Visit Reason Comments Post-Op Check Encounter Details Date Type Department Care Team Description 06/14/2013 Office Visit [facility] 3900 Nurse, P3900 Pod Local ized superficial Podiatric MedSurg swelling, mass, or lump [address] (Primary Dx) [place] [address] Social History Tobacco Use Types Packs/Day Years Used Date Smoking Tobacco: Never Assessed Sex Assigned at Date Recorded Not on file documented as of this encounter Patient Instructions Patient InstructionsPriscilla Miles RN - 06/14/2013 8:23 AM CDT Pt. may get her extremity wet tomorrow. She will continue with the air cast boot and elevation. Follow up as scheduled. Nurse line number to call with any concerns is [phone] documented in this encounter Progress Notes Priscilla Miles RN - 06/14/2013 8:37 AM CDT Podiatric Medicine and Surgery Post-operative Note Surgeon: Elizabeth Hurtado DPM DOS: 05.28.2013 Surgery: Soft Tissue Mass Excision Left Foot, Repair Tibialis Anterior Tendon Left Days Post-op: 17 Weight Bearing Status: WBAT in the air cast boot. Pain Location: Foot/Ankle Pain Ratin-2/10 Pain Medication: OTC Post-operative Dressing: Dressing removed in clinic. Tall air cast boot applied following suture removal. Incision: Dry, well approximated, no S/S infection noted, minimal swelling. Drainage: None noted. Wound Care: Sutures removed, steri-strips applied. Assessment: Normal post-operative healing and progress. Pt. verbalized understanding of post-operative plan. Pt. will continue WBAT in the air cast boot and will elevate as much as possible. Pt. may begin showering tomorrow. She will follow up as scheduled and will call with any concerns. documented in this encounter Plan of Treatment Not on filedocumented as of this encounter Visit Diagnoses Diagnosis Localized superficial swelling, mass, or lump - Primary documented in this encounter Care Teams Technical Inspector Relationship Specialty Start Date End Date Denisse Sue DO PCP - General 05/12/13 04/04/16 [address] [place], [place] [address] documented as of this encounter
--- OUTSIDE RECORDS SUMMARY | 2021-10-02 13:30 | XMS_ITS | Encounter Summary ---
:1985 Author Organization [facility] Address [address] [place] [address] Care Team Providers Name Role Phone Denisse Sue Primary Care Provider Reason for Visit Reason Comments Post-Op Check Encounter Details Date Type Department Care Team Description 05/31/2013 Office Visit [facility] 3900 Nurse, P3900 Pod Local ized superficial Podiatric MedSurg swelling, mass, or lump [address] (Primary Dx) [place] [address] Social History Tobacco Use Types Packs/Day Years Used Date Smoking Tobacco: Never Assessed Sex Assigned at Date Recorded Not on file documented as of this encounter Patient Instructions Patient InstructionsPriscilla Miles RN - 05/31/2013 9:32 AM CDT Pt will continue with weightbearing in the air cast boot and will elevate as much as possible. She will follow up as scheduled next week. Nurse line number to call with any concerns is [phone] documented in this encounter Progress Notes Priscilla Miles RN - 05/31/2013 9:44 AM CDT Podiatric Medicine and Surgery Post-operative Note Surgeon: Elizabeth Hurtado DPM DOS: 05.28.2012 Surgery: Soft Tissue Mass Excision, Left Foot, Repair Tibialis Anterior Tendon Left Days Post-op: 3 Weight Bearing Status: WBAT in the tall air cast boot. Pain Location: Foot, Ankle Pain Ratin-4/10 Pain Medication: OTC and occasional Percocet. Post-operative Dressing: Dressing removed in clinic. Tall air cast boot applied following dressing change. Incision: Dry, well approximated, no S/S infection noted, moderate amount of swelling. Drainage: None noted. Wound Care: Betadine applied to the incision along with a new dressing. Assessment: Normal post-operative healing and progress. Pt. verbalized understanding of post-operative plan. Pt. will continue WBAT in the air cast boot and will elevate as much as possible. She will follow upnext week as scheduled and will call with any concerns. documented in this encounter Plan of Treatment Not on filedocumented as of this encounter Visit Diagnoses Diagnosis Localized superficial swelling, mass, or lump - Primary documented in this encounter Care Teams Ux Developer Designer Relationship Specialty Start Date End Date Denisse Sue DO PCP - General 05/12/13 04/04/16 [address] [place] [address] documented as of this encounter
--- OUTSIDE RECORDS SUMMARY | 2021-10-02 13:30 | XMS_ITS | Encounter Summary ---
:1985 Author Organization [facility] Address [address] [place] [address] Care Team Providers Name Role Phone Md MINA Leigh Primary Care Provider Encounter Details Date Type Department Care Team Description 07/30/2012 Lab Visit [facility] 3850 Screening for iron deficiency anemia; Laboratory Screening for lipoid disorde rs; [address] Special screening examinatio n for other specified viral diseases; [place] [address] Urinary urgency [phone] Social History Tobacco Use Types Packs/Day Years Used Date Smoking Tobacco: Never Assessed Sex Assigned at Date Recorded Not on file documented as of this encounter Plan of Treatment Not on filedocumented as of this encounter Procedures Procedure Name Priority Date/Time Associated Diagnosis Comme nts HIV ANTIBODY Routine 07/30/2012 12:11 Special screening Result s for this PM CDT examination for procedure ar e in other specified the results viral diseases section. TREPONEMA SCREEN Routine 07/30/2012 12:11 Special screening Re sults for this PM CDT examination for procedure ar e in other specified the results viral diseases section. URINALYSIS ROUTINE, Routine 07/30/2012 12:11 Urinary urgency R esults for this MICRO/CULTURE IF POS PM CDT procedu re are in the results section. HEP B SURFACE Routine 07/30/2012 12:11 Special screening Resul ts for this ANTIGEN, NO REFLEX PM CDT examination for proced ure are in other specified the results viral diseases section. COMPLETE BLOOD Routine 07/30/2012 12:11 Screening for iron Res ults for this COUNT-NO DIFF PM CDT deficiency anemia procedure are in the results section. CHOLESTEROL, TOTAL Routine 07/30/2012 12:11 Screening for lipo id Results for this AND HDL PM CDT disorders procedure are i n the results section. HEPATITIS C Routine 07/30/2012 12:11 Special screening Result s for this ANTIBODY, WITH PM CDT examination for procedure are in REFLEX other specified the results viral diseases section. FERRITIN Routine 07/30/2012 12:11 Screening for iron Resul ts for this PM CDT deficiency anemia procedure are in the results section. documented in this encounter Results URINALYSIS ROUTINE, MICRO/CULTURE IF POS (07/30/2012 12:11 PM CDT) [facility] Method Time Signature Urine Type Urine:clean HP CONVERSION cat Turbidity Clear Clear HP CONVERSION U BILI Negative Negative HP CONVERSION Blood Urine Negative Negative HP CONVERSION Glucose, Negative Neg-30 HP CONVERSION Qualitative U mg/dL Ketones Negative Negative HP CONVERSION Leukocyte Negative Negative HP CONVERSION Esterase Urine Nitrite Urine Negative Negative HP CONVERSION pH Urine 7.0 5.0 - 8.0 HP CONVERSION Protein Urine Negative Neg - Trace HP CONVERSION mg/dL U Specific 1.010 1.005 - HP CONVERSION [place] 1.030 Urobilinogen Negative Negative HP CONVERSION Urine Eu/dL Specimen Anatomical Collection Method Collection Time Receive d Time (Source) Location / / Volume Laterality Urine: 07/30/2012 12:11 07/30/2012 PM CDT 12:11 PM CDT Narrative HP CONVERSION - 07/30/2012 12:31 PM CDT Performed at [facility], [address] [place] [address] Nanette Kay APRN, CNP LAB_1 Performing Organization Address City/[facility] Code Phon e Number HP CONVERSION Hepatitis C Antibody, with Reflex (07/30/2012 12:11 PM CDT) [facility] [email or web address] Method Time Signature Hepatitis C Non-React Non-Reacti HP CONVERSION Antibody ve Specimen Anatomical Collection Method Collection Time Receive d Time (Source) Location / / Volume Laterality 07/30/2012 12:11 07/30/2012 1:32 PM CDT PM CDT Nanette Kay APRN, CNP LAB_1 Performing Organization Address [facility] Phon e Number HP CONVERSION Hep B Surface Antigen, No Reflex (07/30/2012 12:11 PM CDT) Analysis Performed At Patho logist Time Signature Hep B Surf Ag Negative Negative HP CONVERSION Specimen Anatomical Collection Method Collection Time Receive d Time (Source) Location / / Volume Laterality 07/30/2012 12:11 07/30/2012 1:32 PM CDT PM CDT Nanette Kay APRN, CNP LAB_1 Performing Organization Address City/[facility]/ZIP Code Phon e Number HP CONVERSION Treponema Screen (07/30/2012 12:11 PM CDT) [facility] gist Method Time Signature Treponema Non Reactive Non Reactive HP CONVERSION Screen Specimen Anatomical Collection Method Collection Time Receive d Time (Source) Location / / Volume Laterality 07/30/2012 12:11 07/30/2012 1:33 PM CDT PM CDT Nanette Kay APRN, CNP LAB_1 Performing Organization Address [facility] Code Phon e Number HP CONVERSION HIV ANTIBODY (07/30/2012 12:11 PM CDT) athologist Signature HIV 1/HIV 2 Non-React Non-Reacti HP CONVERSION ve Specimen Anatomical Collection Method Collection Time Receive d Time (Source) Location / / Volume Laterality 07/30/2012 12:11 07/30/2012 1:32 PM CDT PM CDT Nanette Kay APRN, CNP LAB_1 Performing Organization Address [facility] Code Phon e Number HP CONVERSION Cholesterol, Total and HDL (07/30/2012 12:11 PM CDT) athologist Signature Cholesterol 159 0 - 200 HP CONVERSION mg/dL HDL Cholesterol 84 >39 mg/dL HP CONVERSION Cholesterol/HDL 1.9 HP CONVERSION Ratio Screen Specimen Anatomical Collection Method Collection Time Receive d Time (Source) Location / / Volume Laterality 07/30/2012 12:11 07/30/2012 PM CDT 12:11 PM CDT Narrative HP CONVERSION - 07/30/2012 12:43 PM CDT Performed at [facility], [address] [place] [id number] Nanette Kay APRN, CNP LAB_1 Performing Organization Address City/[facility]/ZIP Code Phon e Number HP CONVERSION (ABNORMAL) Ferritin (07/30/2012 12:11 PM CDT) athologist Signature Ferritin Serum 4 (L) 10 - 291 HP CONVERSION ng/mL Specimen Anatomical Collection Method Collection Time Receive d Time (Source) Location / / Volume Laterality 07/30/2012 12:11 07/30/2012 1:32 PM CDT PM CDT Nanette Kay APRN, CNP LAB_1 Performing Organization Address [facility] Phon e Number HP CONVERSION (ABNORMAL) Hemogram/Plts (07/30/2012 12:11 PM CDT) [facility] gist Method Time Signature White Blood Cell 6.2 3.8 - HP CONVERSION Count 11.0 k/cmm Red Blood Cell 4.82 3.70 - HP CONVERSION Count 5.20 m/cmm Hemoglobin 12.1 11.8 - HP CONVERSION 15.5 g/dL Hematocrit 36.9 35.0 - HP CONVERSION 46.0 % Mean Corpuscular 76.5 (L) 80.0 - HP CONVERSION Volume 100.0 fL RDW 15.9 (H) 11.0 - HP CONVERSION 15.0 % Platelet Count 298 140 - 450 HP CONVERSION k/cmm Specimen Anatomical Collection Method Collection Time Receive d Time (Source) Location / / Volume Laterality 07/30/2012 12:11 07/30/2012 PM CDT 12:11 PM CDT Narrative HP CONVERSION - 07/30/2012 12:22 PM CDT Performed at [facility], [address] [place] [address] Nanette Kay APRN, CNP LAB_1 Performing Organization Address [facility] Phon e Number HP CONVERSION documented in this encounter Visit Diagnoses Diagnosis Screening for iron deficiency anemia Screening for lipoid disorders Special screening examination for other specified viral diseases Urinary urgency Urgency of urination documented in this encounter Care Teams Program Associate Relationship Specialty Start Date End Date Md Leigh MD PCP - General 05/26/10 05/11/13 [place] [address] documented as of this encounter
--- OUTSIDE RECORDS SUMMARY | 2021-10-02 13:30 | XMS_ITS | Encounter Summary ---
:1985 Author Organization [facility] Address [address] [place] [address] Care Team Providers Name Role Phone Denisse Sue DO Primary Care Provider Reason for Visit Reason Comments Annual Exam Encounter Details Date Type Department Care Team Description 12/22/2013 [facility] Nicholas Kay, Routine gen eral medical examination at a health care facility (Primary Dx); Obstetrics/Gynecolog y DON GRANT Special screening examination for unspec ified chlamydial disease [address] [place], [place] [facility] [address] [place] [address] [place], [place] [phone] (Wo rk) Social History Tobacco Use Types Packs/Day Years Used Date Smoking Tobacco: Never Assessed Sex Assigned at Date Recorded Not on file documented as of this encounter Last Filed Vital Signs Vital Sign Reading Time Taken Comments Blood Pressure 109/82 12/22/2013 2:58 PM CDT Pulse 57 12/22/2013 2:58 PM CDT Temperature - - Respiratory Rate - - Oxygen Saturation - - Inhaled Oxygen Concentration - - Weight 56.1 kg (123 lb 11.2 oz) 12/22/2013 2:58 PM CDT Height 168.3 cm (5' 6.25) 12/22/2013 2:58 PM CDT Body Mass Index 19.82 12/22/2013 2:58 PM CDT documented in this encounter Patient Instructions Patient InstructionsNicholas Kay, JUANITA, DON - 12/30/2013 10:03 PM CST It was good to meet with you today Kimberley for your well visit. I am happy to report your physical exam is normal. No Pap smear was indicated today because you had a normal Pap smear July 2012. Current guidelines recommend Pap smear screening every 3 years. Your next Pap smear is due in 2015. Your next physical exam is due in 2014. A culture for gonorrhea and Chlamydia screening is pending. I will forward your results through [facility], or call you if there are anyconcerns. In the past you have had problems with low iron causing anemia. Most recent hemoglobin was normal at12.2. Please contact me at [phone] if there is anything you need. 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 female with an LMP of: Patient's last menstrual period was 12/10/2013 (exact date). Presents as a known patient to me for an annual exam. She prefers to go by the name Kimberley. Requesting STD culture for gonorrhea and Chlamydia. Past Medical History: Past Medical History Diagnosis Date ??? Anemia ??? Irregular menstrual cycle ??? Migraine, unspecified, without mention of intractable migraine without mention of status migrainosus ??? Immunization, other disease ??? Trauma 08/2011 Fractured patella ??? Urinary tract infection 05/2010 Pyelonephritis ??? Varicella Past Surgical History: Past Surgical History Procedure Laterality Date ??? [place] tooth extraction Family History: Family History Problem Relation Age of Onset ??? Thyroid Disease Mother ??? High Cholesterol Father ??? Cancer Maternal Grandfather leukemia ??? Diabetes Paternal Grandfather Gynecologic History: Period Cycle (Days): 30 Period Duration (Days): (6-7 days) Period Pattern: Regular Menstrual Flow: Moderate Dysmenorrhea: Moderate Dysmenorrhea Symptoms: Cramping Relationship duration: n/a Obstetric History T0 TAB0 SAB0 E0 M0 L0 History Social History ??? Marital Status: Single Spouse Name: N/A Number of Children: 0 ??? 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 Smoking status: Never Smoker ??? Smokeless tobacco: Not on file ??? Alcohol Use: 0.0 oz/week 1-2 drink(s) per week ??? Drug Use: No ??? Sexual Activity: Partners: Male Control/ Protection: Condom Other Topics Concern ??? Bike Helmet Yes ??? City Water Yes ??? Exercise Yes Yoga one time/week. Running 3-10 miles 5-6 days a week ??? Guns In Home No ??? Seat Belt Yes ??? Special Diet No ??? Weight Concern No Social History Narrative Health Maintenance: Lab Results Component Value Date/Time Cholesterol 159 07/30/2012 1211 HDL Cholesterol 84 07/30/2012 1211 pelvic ultrasound:n/a No results found for this basename: gluc [...] face: negative Respiratory: negative Cardiovascular: negative Gastrointestinal: negative Genitourinary:negative Integument/breast: negative Musculoskeletal:negative Objective: BP 109/82 Pulse 57 Ht 5' 6.25 (1.683 m) Wt 123 lb 11.2 oz (56.11 kg) BMI 19.81 kg/m2 12/10/2013 General Appearance: Alert, cooperative, no distress, appears stated age Eyes: PERRL, conjunctiva/corneas clear, both eyes Ears: Normal TM's and external ear canals, [...] Normal female without lesion, discharge or tenderness.vagina: rugae present, no erythema.Cervix: Culture for gonorrhea and Chlamydia obtained. Bimanual exam: Uterus retroverted, smooth, no enlargement. Left and right adnexa unremarkable Rectal: Normal tone, no masses or tenderness Extremities: Extremities normal, atraumatic, no cyanosis or edema Skin: Skin color, texture, turgor normal, no rashes or lesions Lymph nodes: Cervical, supraclavicular, and axillary nodes normal . Assessment: Diagnosis (ICD9) and Associated Orders ICD-9-CM 1. Routine general medical examination at a health care facility V70.0 2. Special screening examination for unspecified chlamydial disease V73.98 Sexually Transmitted Disease Probe [STDPR] - Swab Plan: Preventive care guidelines reviewed. STD culture pending.See patient instructions Orders Placed This Encounter ??? Sexually Transmitted Disease Probe [STDPR] - Swab Order Specific Question: Ordering Provider? (Dr, Res, RN ANESTHETIST, or PA Only) Answer: NICHOLAS KAY [[id number]] Patient Instructions It was good to meet with you today Kimberley for your well visit. I am happy to report your physical exam is normal. No Pap smear was indicated today because you had a normal Pap smear July 2012. Current guidelines recommend Pap smear screening every 3 years. Your next Pap smear is due in 2015. Your next physical exam is due in 2014. A culture for gonorrhea and Chlamydia screening is pending. I will forward your results through [facility], or call you if there are anyconcerns. In the past you have had problems with low iron causing anemia. Most recent hemoglobin was normal at12.2. Please contact me at [phone] if there is anything you need. Have a great year. 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 documented in this encounter Results SEXUALLY TRANSMITTED DISEASE PROBE (12/22/2013 4:10 PM CDT) Component Value Ref Test Analysis Performed At [facility] gist Range Method Time Signature Source Endocervical for HP CONVERSION molecular testing Site HP CONVERSION Chlamydia Chlamydia HP CONVERSION Trach DNA trachomatis NEGATIVE by DNA amplification GC DNA Neisseria HP CONVERSION gonorrhea NEGATIVE by DNA amplification. Specimen (Source) Anatomical Collection Method Collection Time Re ceived Time Location / / Volume Laterality Endocervical for 12/22/2013 4:10 molecular testing: PM CDT Nicholas Kay APRN, CNP LAB_1 Performing Organization Address City/State/ZIP Code Phon e Number HP CONVERSION documented in this encounter Visit Diagnoses Diagnosis Routine general medical examination at a health care facility - Primary Special screening examination for unspec ified chlamydial disease documented in this encounter Care Teams Weighmaster Lead Relationship Specialty Start Date End Date Denisse Sue DO PCP - General 05/12/13 04/04/16 [address] [place] [address] documented as of this encounter
--- OUTSIDE RECORDS SUMMARY | 2021-10-02 13:30 | XMS_ITS | Encounter Summary ---
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 [facility] [address] [place] [address] [phone] (Wo rk) Social History Tobacco Use Types Packs/Day Years Used Date Smoking Tobacco: Never Alcohol Use Standard Drinks/Week Comments Yes 0 (1 standard drink = 0.6 oz pure [...] Sign Reading Time Taken Comments Blood Pressure 120/77 03/04/2016 9:31 AM PREP MANAGER Pulse 78 03/04/2016 9:31 AM PREP MANAGER Temperature - - Respiratory Rate - - Oxygen Saturation - - Inhaled Oxygen Concentration - - Weight 53.4 kg (117 lb 11.2 oz) 03/04/2016 9:31 AM PREP MANAGER Height 168.3 cm (5' 6.25) 03/04/2016 9:31 AM PREP MANAGER Body Mass Index 18.85 03/04/2016 9:31 AM PREP MANAGER documented in this encounter Patient Instructions Patient InstructionsNanette Kay APRN, CNP - 03/04/2016 9:54 AM CST Thank you for coming in today Kimberley for your Well Visit. No pap smear was indicated, you had a normal pap smear/negative HPV. Your next pap smear is due in 2019. Yearly physical exams are still recommended. I recommend you check [facility]- Find A Provider- to identify another M.D. For primary care. We reviewed your recent episode of migraine headaches. I understand you do not experience aura priorto your headaches and the headaches have not worsened since starting the control pill. Migraine headaches with aura or increased frequency of migraine headaches on control pills would indicate switching pills or evaluating another option for control. Please contact us if you have additional questions or concerns at [phone] or [facility]. MANAGER documented in this encounter Progress Notes Nanette Kay APRN, CNP - 03/04/2016 10:01 AM CST Subjective: Simona hCu is a partnered 30 y.o. female with an LMP of: Patient's last menstrual period was 02/22/2016 (exact date). Presents as a known patient for an annual exam. No pap indicated today; she had normal pap/negative hpv in 02/2015. Her primary MD has left [facility] and she needs another M.D. For Primary care. Uses Imitrex which resolves headaches. She had 1 episode of recurring headache 12 hours after headache resolved. She had 1 other situation when headache resolved and recurred x2. Headaches resolved with Imitrex for 12 hours prior to returning. Her headaches have NOT worsened since starting ocps. Past Medical History: Past Medical History Diagnosis Date ??? Anemia ??? Irregular menstrual cycle ??? Migraine, unspecified, without mention of intractable migraine without mention of status migrainosus ??? Immunization, other disease ??? Trauma 08/2011 Fractured patella ??? Urinary tract infection 05/2010 Pyelonephritis ??? Varicella ??? Asthma ([facility]) Past Surgical History: Past Surgical History Procedure Laterality Date ??? [place] teeth extraction ??? Foot surgery 2012 Family History: Family History Problem Relation Age of Onset ??? Thyroid Disorder Mother ??? High Cholesterol Father ??? Cancer Maternal Grandfather leukemia ??? Dementia Paternal Grandfather Gynecologic History: Period Cycle (Days): 28 Period Duration (Days): (4-6 days) Period Pattern: Regular Menstrual Flow: Moderate Dysmenorrhea: (!) Mild Dysmenorrhea Symptoms: Cramping Relationship duration: 18 months-previous STD screening, declined today. Obstetric History T0 TAB0 SAB0 E0 M0 L0 Social History Social History ??? Marital Status: Single Spouse Name: N/A ??? Number of Children: 0 ??? 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 Smoking status: Never Smoker ??? Smokeless tobacco: Not on file ??? Alcohol Use: Yes Comment: 2-3 per glasses drinks per week ??? Drug Use: No ??? Sexual Activity: Partners: Male Control/ Protection: OCP Other Topics Concern ??? Bike Helmet Yes ??? City Water Yes ??? Exercise Yes Yoga one time/week. Running 3-10 miles 5-6 days a week ??? Guns In Home No ??? Seat Belt Yes ??? Special Diet No ??? Weight Concern No Social History Narrative Health Maintenance: Lab Results Component Value Date/Time CHOLESTEROL 159 07/30/2012 1211 CHOLESTEROL/HDL RATIO SCREEN 1.9 07/30/2012 1211 HDL CHOLESTEROL 84 07/30/2012 1211 pelvic ultrasound:n/a No results found for: GLUCOSE Immunization History Administered Date(s) Administered ??? DPT-Historical 02/11/1984, 04/17/1984, 06/12/1984 ??? MMR 03/12/1985 ??? OPV 02/11/1984, 04/17/1984 ??? TDAP (BOOSTRIX) 07/30/2012 Current Outpatient Prescriptions Medication Sig Dispense Refill ??? Norethin Tan-Eth Estrad-FE () 1-20 MG-MCG tablet Take 1 Tab by mouth daily. 84 Tab 3 ??? SUMAtriptan (AKA IMITREX) 100 MG tablet Take 1 tablet by mouth as needed for Migraine. May repeat after 2 hours if needed. Max 2 tabs/24 hours. Max 9 days/month 9 tablet 11 No current facility-administered medications for this visit. No Known Allergies Review of Systems Ears, nose, mouth, throat, and face: negative Respiratory: negative Cardiovascular: negative Gastrointestinal: negative Genitourinary:negative Integument/breast: negative Musculoskeletal:negative Objective: BP 120/77 mmHg Pulse 78 Ht 5' 6.25 (1.683 m) Wt 117 lb 11.2 oz (53.388 kg) BMI 18.85 kg/m2 LMP 02/22/2016 (Exact Date) General Appearance: Alert, cooperative, no distress, appears stated age Eyes: PERRL, conjunctiva/corneas clear, both eyes Ears: Normal external ear canals, both ears Throat: Lips, [...] Genitalia: Normal female without lesion, discharge or tenderness. Vagina:rugae noted, no erythema. Cervix noted. Bimanual exam: uterus is anteverted, small, non-tender with motion. Left and right adnexa unremarkable. Rectal: Normal tone, no masses or tenderness Extremities: Extremities normal, atraumatic, no cyanosis or edema Skin: Skin color, texture, turgor normal, no rashes or lesions Lymph nodes: Cervical, supraclavicular, and axillary nodes normal . Assessment: Encounter Diagnoses Name Primary? Well female exam with routine gynecological exam Yes ??? Oral contraceptive pill surveillance ??? Migraine without aura and with status migrainosus, not intractable Plan: Preventive care visit reviewed. Risk, benefits, correct usage of OCPs reviewed. Discussed migraine headaches and ocps. She has NO aura and never has experienced aura. Migraines have not worsened sincestarting ocps. See patient instructions. Orders Placed This Encounter ??? Norethin Tan-Eth Estrad-FE () 1-20 MG-MCG tablet Patient Instructions Thank you for coming in today Kimberley for your Well Visit. No pap smear was indicated, you had a normal pap smear/negative HPV. Your next pap smear is due in 2019. Yearly physical exams are still recommended. I recommend you check [facility]- Find A Provider- to identify another M.D. For primary care. We reviewed your recent episode of migraine headaches. I understand you do not experience aura priorto your headaches and the headaches have not worsened since starting the control pill. Migraine headaches with aura or increased frequency of migraine headaches on control pills would indicate switching pills or evaluating another option for control. Please contact us if you have additional questions or concerns at [phone] or Silecs. Current Control:03/15 MANAGER documented in this encounter Plan of Treatment Not on filedocumented as of this encounter Visit Diagnoses Diagnosis Well female exam with routine gynecologi bre exam - Primary Routine gynecological examination Oral contraceptive pill surveillance Surveillance of previously prescribed co ntraceptive pill Migraine without aura and with status mi grainosus, not intractable Migraine without aura, without mention o f intractable migraine with status migrainosus documented in this encounter Care Teams Lump Maker Relationship Specialty Start Date End Date Denisse Sue DO PCP - General 05/12/13 04/04/16 [address] [place], [place] [id number] documented as of this encounter
--- OUTSIDE RECORDS SUMMARY | 2021-10-02 13:30 | XMS_ITS | Encounter Summary ---
:1985 Author Organization [facility] Address [address] [place] [address] Care Team Providers Name Role Phone Linette, Denisse Mane ZARAGOZA Primary Care Provider Reason for Visit Reason Comments Post-Op Check Encounter Details Date Type Department Care Team Description 07/21/2013 Office Visit [facility] [address] H[address]ado toperative Podiatric MedSurg FAN Gilliam follow-up (Primary Dx) [address] [facility] [place] [id number] (Wo rk) Social History Tobacco Use Types Packs/Day Years Used Date Smoking Tobacco: Never Assessed Sex Assigned at Date Recorded Not on file documented as of this encounter Progress Notes Elizabeth Hurtado DPM - 07/21/2013 9:05 AM CDT Progress Notes signed by Elizabeth Hurtado DPM at 07/21/13 4586 Author: Elizabeth Hurtado DPM Service: (none) Author Type: Physician Filed: 07/21/13 8415 Note Time: 07/21/131217 Status: Signed Time Analysis Clerk: Elizabeth Hurtado DPM (Physician) NAME: ODESSA CHE MR#: [id number] CSN: [id number] AUTHENTICATING CLINICIAN: Elizabeth Hurtado DPM CONFIRM #: [id number] LOC: 439 CLINIC PROGRESS NOTE DATE OF VISIT: 07/21/2013 : 1985 SUBJECTIVE: Patient returns today who is 7-1/2 weeks status post ganglion cyst excision and anterior tibialis tendon debridement. She is having some mild soreness, but overall seems to be doing well. She is wearing a regular shoe today. She has not returned to running or higher impact activities. MEDICATIONS: Reviewed and updated in Epic. ALLERGIES: Reviewed and updated in Epic. OBJECTIVE: Scar is well healed. There are some suture tracks present. There is some mild thickening along the tendon, to be expected. She has good strength with dorsiflexion bilaterally. Minimal to no edema, no erythema. ASSESSMENT: Seven and a half weeks status post excision of ganglion cyst and debridement of tibialis anterior tendon. PLAN: She may continue with a regular shoe, gradually increase activities, but no high impact running or jumping activities for another month. She can continue with an llpp-mxk-voapyss scar product, such as a silicone gel product. Will release her today since she is doing quite well. Physical therapy referral was placed in case she would like to proceed with that if needed. SMS:MEDQ C: CONFIRM #: [id number] documented in this encounter Plan of Treatment Not on filedocumented as of this encounter Visit Diagnoses Diagnosis Postoperative follow-up - Primary Follow-up examination, following unspeci fied surgery documented in this encounter Care Teams Aeronautical Engineering Teacher Relationship Specialty Start Date End Date Denisse Sue DO PCP - General 05/12/13 04/04/16 [address]37 [place] [address] documented as of this encounter
--- OUTSIDE RECORDS SUMMARY | 2021-10-02 13:30 | XMS_ITS | Encounter Summary ---
:1985 [facility] Address [address] [place] [address] Care Team Providers Name Role Phone Md MINA Leigh Primary Care Provider Encounter Details Date Type Department Care Team Description 01/23/2011 Lab Visit [facility] Hyperhidrosis; [address] [place], [place] [address] Social History Tobacco Use Types Packs/Day Years Used Date Smoking Tobacco: Never Assessed Sex Assigned at Date Recorded Not on file documented as of this encounter Progress Notes Nicholas Weaver APRN, CNP - 03/07/2011 3:22 PM CST remind patient to schedule her hemoglobin lab. Nicholas Weaver APRN, CNP - 01/25/2011 5:51 PM LEGAL SUMMER INTERN Addended by: NICHOLAS WEAVER on: 01/25/2011 Modules accepted: Orders Nicholas Weaver APRN, CNP - 01/23/2011 4:53 PM CST left message to start iron bid. need to recheck hemoglobin in 1 month. Further iron studies pending. documented in this encounter Plan of Treatment Not on filedocumented as of this encounter Procedures Procedure Name Priority Date/Time Associated Diagnosis Comme nts IRON BINDING CAPACITY Routine 01/23/2011 3:48 Hyperhidrosis Re sults for this (INCL IRON) PM LEGAL SUMMER INTERN procedure are i n the results section. THYROID STIMULATING Routine 01/23/2011 3:48 Hyperhidrosis Resu lts for this HORMONE PM LEGAL SUMMER INTERN procedure are i n the results section. COMPLETE BLOOD Routine 01/23/2011 3:48 Hyperhidrosis Results f or this COUNT-NO DIFF PM LEGAL SUMMER INTERN procedure are in the results section. FERRITIN Routine 01/23/2011 3:48 Hyperhidrosis Results for this PM LEGAL SUMMER INTERN procedure are i n the results section. VENIPUNCTURE (JEFF) Routine 01/23/2011 3:41 Hyperhidrosis Resu lts for this PM LEGAL SUMMER INTERN procedure are i n the results section. documented in this encounter Results THYROID STIMULATING HORMONE (01/23/2011 3:48 PM LEGAL SUMMER INTERN) athologist Signature Thyroid 0.98 0.20 - HP CONVERSION Stimulating 4.50 mIU/L Hormone Specimen Anatomical Collection Method Collection Time Receive d Time (Source) Location / / Volume Laterality 01/23/2011 3:48 PM 1 7:58 LEGAL SUMMER INTERN PM LEGAL SUMMER INTERN Nicholas Weaver APRN, CNP LAB_1 Performing Organization Address City/State/ZIP Code Phon e Number HP CONVERSION (ABNORMAL) IRON BINDING CAPACITY (INCL IRON) (01/23/2011 3:48 PM LEGAL SUMMER INTERN) [facility] gist Method Time Signature Iron, Serum 10 (L) 50 - 165 HP CONVERSION ug/dL Iron Binding 445 250 - 450 HP CONVERSION Capacity ug/dL Iron Saturation 2 (L) 20 - 55 % HP CONVERSION Iron TIBC see below HP CONVERSION Interpretation Comment: Low iron, normal TIBC, possible iron deficiency. Specimen Anatomical Collection Method Collection Time Receive d Time (Source) Location / / Volume Laterality 01/23/2011 3:48 PM 1 7:58 LEGAL SUMMER INTERN PM LEGAL SUMMER INTERN Nicholas Weaver APRN, CNP LAB_1 Performing Organization Address City/State/ZIP Code Phon e Number HP CONVERSION (ABNORMAL) Ferritin (01/23/2011 3:48 PM LEGAL SUMMER INTERN) athologist Signature Ferritin Serum <1 (L) 10 - 291 HP CONVERSION ng/mL Specimen Anatomical Collection Method Collection Time Receive d Time (Source) Location / / Volume Laterality 01/23/2011 3:48 PM 1 7:58 LEGAL SUMMER INTERN PM LEGAL SUMMER INTERN Nicholas Weaver APRN, CNP LAB_1 Performing Organization Address City/[facility] Phon e Number HP CONVERSION (ABNORMAL) Hemogram/Plts (01/23/2011 3:48 PM LEGAL SUMMER INTERN) [facility] gist Method Time Signature White Blood Cell 5.4 3.8 - HP CONVERSION Count 11.0 k/cmm Red Blood Cell 4.64 3.70 - HP CONVERSION Count 5.20 m/cmm Hemoglobin 8.5 (L) 11.8 - HP CONVERSION 15.5 g/dL Hematocrit 27.9 (L) 35.0 - HP CONVERSION 46.0 % Mean Corpuscular 60.3 (L) 80.0 - HP CONVERSION Volume 100.0 fL RDW 17.1 (H) 11.0 - HP CONVERSION 15.0 % Platelet Count 515 (H) 140 - 450 HP CONVERSION k/cmm Specimen Anatomical Collection Method Collection Time Receive d Time (Source) Location / / Volume Laterality 01/23/2011 3:48 PM 1 3:48 LEGAL SUMMER INTERN PM LEGAL SUMMER INTERN Narrative HP CONVERSION - 01/23/2011 4:03 PM LEGAL SUMMER INTERN Performed at [facility], [address] [place] [address] Nicholas Weaver APRN, CNP LAB_1 Performing Organization Address [facility] Phon e Number HP CONVERSION VENIPUNCTURE (JEFF) (01/23/2011 3:41 PM LEGAL SUMMER INTERN) athologist Signature Venipuncture Done HP CONVERSION Specimen (Source) Anatomical Collection Method Collection Time Re ceived Time Location / / Volume Laterality 01/23/2011 3:41 PM LEGAL SUMMER INTERN Narrative HP CONVERSION - 01/23/2011 3:41 PM LEGAL SUMMER INTERN Performed at [facility], [address] [place] [address] Nicholas Weaver APRN, CNP LAB_1 Performing Organization Address [facility] Phon e Number HP CONVERSION documented in this encounter Visit Diagnoses Diagnosis Hyperhidrosis Primary focal hyperhidrosis Anemia Anemia, unspecified documented in this encounter Care Teams Post Graduate Intern Relationship Specialty Start Date End Date Md Leigh MD PCP - General 05/26/10 05/11/13 [place] [address] documented as of this encounter
--- OUTSIDE RECORDS SUMMARY | 2021-10-02 13:30 | XMS_ITS | Encounter Summary ---
:1985 Author Organization [facility] Address [address] [place] [address] Care Team Providers Name Role Phone Md MINA Leigh Primary Care Provider Reason for Referral Specialty Diagnoses / Procedures Referred By Contact Refer red To Contact Laverne Polanco MD [address] [facility] [address] [place] [address] Referral ID Status Reason Start Date Expiration Date Visits Requ ested Visits Authorized Reason for Visit Reason Comments CONSULT Encounter Details Date Type Department Care Team Description 08/27/2011 Surgical Consult [facility] Angelica Thomas, [facility] CENTER MD Elliott (Primary Dx) [address] [facility] [place] [address] [phone] Social History Tobacco Use Types Packs/Day Years Used Date Smoking Tobacco: Never Assessed Sex Assigned at Date Recorded Not on file documented as of this encounter Last Filed Vital Signs Vital Sign Reading Time Taken Comments Blood Pressure - - Pulse - - Temperature - - Respiratory Rate - - Oxygen Saturation - - Inhaled Oxygen Concentration - - Weight 52.2 kg (115 lb) 08/27/2011 3:32 PM CDT amparo Height 162.6 cm (5' 4) 08/27/2011 3:32 PM CDT amparo Body Mass Index 19.74 08/27/2011 3:32 PM CDT documented in this encounter Progress Notes Angelica Thomas MD - 08/27/2011 4:41 PM CDT Progress Notes signed by Angelica Thomas MD at 09/03/11816 Author: Angelica Thomas MD Service: (none) Author Type: Physician Filed: 09/03/11816 Note Time: 08/27/11 1641 Status: Signed V Belt Finisher: Angelica Thomas MD (Physician) NAME: ODESSA CHE VISIT: [id number] DICTATING CLINICIAN: ANGELICA THOMAS MD JOB: [id number] Med JOB: [id number] LOC: 3711 CLINIC PROGRESS NOTE DATE OF VISIT: 08/27/2011 : 1985 PROBLEM: Injured left knee cap. SUBJECTIVE: Ms. Che is a 25-year-old woman who, following a [employer] game last Friday, was at a pub [place] and someone fell against her causing her to fall and land on both knees. The left knee took the brunt of the injury and because of acute onset pain was examined and a patellar fracture diagnoses. She is here now 3 days later for a followup and evaluation. She states symptoms are improved, but she still has discomfort. She has been able to sleep adequately. She requires very little in the form of narcotics for symptomatic treatment. ADR/ALLERGIES: NO KNOWN DRUG ALLERGIES. MEDICATIONS: She is using Vicodin on a prn basis and she uses Drysol for hyperhidrosis. PAST SURGICAL HISTORY: None. ACTIVE MEDICAL CONDITIONS: None. 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 She is a nonsmoker. Drinks alcohol occasionally. She normally runs for fitness, but has been unable to do so. REVIEW OF SYSTEMS: Noncontributory. FAMILY HISTORY: Noncontributory. OBJECTIVE: On examination, there is marked ecchymosis around the right knee cap but minimally tender. The left knee cap also shows swelling and ecchymosis over the patella. She is only mildly tender to palpation over the patella. She is able to achieve full extension and 15 degrees of flexion before pain limits. She has active knee extension and is able to flex the hip maintaining knee extension without difficulty, only mild discomfort. There is no other associated tenderness to palpation. RADIOGRAPHS: Review of the x-ray shows a vertical fracture with a minimal displacement and diastasis. The joint surface appears intact. ASSESSMENT: 1. Vertical patellar fracture with minimal displacement. PLAN: Since extensor mechanism is intact and this is likely to heal well, she will continue the knee immobilizer, permitting partial to full weightbearing as symptoms permit. I have asked her to return in 2 weeks for reassessment to begin more aggressive physical therapy and decrease use of the knee immobilizer if she is doing well. We have discussed long term care pharmacist outcome, possible return to running date as we look at the future, but she realizes this will be a week to week decision based on her clinical recovery and success in physical therapy. IM: 08/27/2011 04:52:54 pm MT: 4 documented in this encounter Plan of Treatment Scheduled Referrals Name Type Priority Associated Diagnoses Order S chedule Orthopaedic Consult Referral Routine Fracture, patella Ord ered: 08/27/2011 Adult/Peds documented as of this encounter Visit Diagnoses Diagnosis Fracture, patella - Primary Closed fracture of patella documented in this encounter Care Teams Log Tumbler Relationship Specialty Start Date End Date Md Leigh MD PCP - General 05/26/10 05/11/13 [place] [address] documented as of this encounter
--- OUTSIDE RECORDS SUMMARY | 2021-10-02 13:30 | XMS_ITS | Encounter Summary ---
:1985 Author Organization [facility] Address [address] [place] [address] Care Team Providers Name Role Phone Denisse Sue DO Primary Care Provider Reason for Visit Reason Comments Refill Encounter Details Date Type Department Care Team Description 12/06/2014 [facility] Nanette Kay, Counseling for Obstetrics/Gynecolog DON GRANT control, oral y [address]ptives (Primary [address] Dx) [facility] [address] [place] [address] [place], [place] [phone] [address] Social History Tobacco Use Types Packs/Day Years Used Date Smoking Tobacco: Never Assessed Sex Assigned at Date Recorded Not on file documented as of this encounter Last Filed Vital Signs Vital Sign Reading Time Taken Comments Blood Pressure 111/68 12/06/2014 8:37 AM CDT Pulse 64 12/06/2014 8:37 AM CDT Temperature - - Respiratory Rate - - Oxygen Saturation - - Inhaled Oxygen Concentration - - Weight 56.7 kg (124 lb 14.4 oz) 12/06/2014 8:37 AM CDT Height 168.3 cm (5' 6.25) 12/06/2014 8:37 AM CDT Body Mass Index 20.01 12/06/2014 8:37 AM CDT documented in this encounter Patient Instructions Patient InstructionsNanette Kay, JUANITA, REFERENCE LIBRARIAN - 12/06/2014 9:33 AM CDT Thank you for coming in today for follow up on your new control prescription. Originally the intent was to follow up and complete your annual exam, unfortunately, the appointment was not booked accordingly. I am glad this pill is working well for you. I have continued your prescription for another 3 months. Plan to schedule your physical exam and pap smear for February 2015. You can call [phone] to set the appointment. I am available at [phone] or through [facility] if your have any questions. documented in this encounter Progress Notes Nanette Kay APRN, CNP - 12/06/2014 9:37 AM CDT SUBJECTIVE: Kimberley is a 28-year-old female presenting for followup regarding oral contraceptives. She has been on Microgestin 03/15 were 2-1/2 cycles, she would like to continue with this prescription. She had some spotting the first cycle, this has not recurred with subsequent cycles. She didhave headaches on Microgestin, she has had no headaches with this formula. Mild breast tenderness. This appointment was supposed to be a control pill followup and annual exam, this was not scheduled accordingly. Medications: Current Outpatient Prescriptions Medication Sig Dispense Refill ??? norethindrone-ethinyl estradiol (MICROGESTIN FE 03/15, ,) 1 mg-20 mcg (21)/75 mg (7) per tabletTake 1 tablet by mouth daily (every 24 hours). Follow package directions 84 tablet 0 No current facility-administered medications for this visit. Adverse Drug Reactions: has No Known Allergies. OBJECTIVE:BP 111/68 mmHg Pulse 64 Ht 5' 6.25 (1.683 m) Wt 124 lb 14.4 oz (56.654 kg) BMI 20.00 kg/m2 LMP 11/16/2014 (Exact Date) Chart reviewed, and continue 3 months Microgestin. She is due for an annual exam November 2014, Pap smear with HPV is due 2015. We'll plan to do annual exam and Pap smear in February 2015. ASSESSMENT: Encounter Diagnosis Name Primary? Counseling for control, oral contraceptives Yes PLAN: 3 months oral contraception, return to clinic February 2015 for annual exam and Pap smear with HPV.See patient instructions. Patient Instructions Thank you for coming in today for follow up on your new control prescription. Originally the intent was to follow up and complete your annual exam, unfortunately, the appointment was not booked accordingly. I am glad this pill is working well for you. I have continued your prescription for another 3 months. Plan to schedule your physical exam and pap smear for February 2015. You can call [phone] to set the appointment. I am available at [phone] or through [facility] if your have any questions. The patient was discharged ambulatory and in stable condition. : Vital Signs: [ ] Reviewed; See Flowsheet Charting in LastWord. [ ] documented in this encounter Plan of Treatment Not on filedocumented as of this encounter Visit Diagnoses Diagnosis Counseling for control, oral contr aceptives - Primary General counseling for prescription of o ral contraceptives documented in this encounter Care Teams Video Editing Internship Relationship Specialty Start Date End Date Denisse Sue DO PCP - General 05/12/13 2 [address] [place] [address] documented as of this encounter
--- OUTSIDE RECORDS SUMMARY | 2021-10-02 13:30 | XMS_ITS | Encounter Summary ---
:1985 Author Organization [facility] Address [address] [place] [address] Care Team Providers Name Role Phone Md MINA Leigh Primary Care Provider Reason for Visit Reason Comments Follow-up Encounter Details Date Type Department Care Team Description 12/13/2011 Office Visit [facility] [address] Axil lary odor Family Medicine SALES ENGINEERING MANAGER, LEATHER BELT LOOP CUTTER (Primary Dx) [address] [facility] [address] [place] [address] [phone] Social History Tobacco Use Types Packs/Day Years Used Date Smoking Tobacco: Never Assessed Sex Assigned at Date Recorded Not on file documented as of this encounter Last Filed Vital Signs Vital Sign Reading Time Taken Comments Blood Pressure 98/50 12/13/2011 1:05 PM CDT Pulse 60 12/13/2011 1:05 PM CDT Temperature - - Respiratory Rate - - Oxygen Saturation - - Inhaled Oxygen Concentration - - Weight 49.9 kg (110 lb) 12/13/2011 1:05 PM CDT Height - - Body Mass Index 18.88 08/27/2011 3:32 PM CDT documented in this encounter Progress Notes Barbara Gamino - 12/17/2011 9:58 PM CDT Simona Che is a 26 y.o. female Chief Complaint Patient presents with ??? Follow-up armpit smell, different smell to it, not sweating, Subjective/HPI: Patient here today for concern of excessive respiration from her armpit area and order. She states that she has had issues at this for over a year off and on. She has tried prescription antiperspirant which has not been successful at treating her problem. She reports the order is strange to her. She does notice this after activity when she has sweats more. Review of Systems - Negative except for what is mentioned in HPI. Medications, Allergies and Medical/Surgical History reviewed per EMR. Objective: BP 98/50 Pulse 60 Wt 110 lb (49.896 kg) Physical Examination: General: Alert, NAD, respirations even and unlabored Skin: Warm and dry Assessment/Plan: Hyperhidrosis-at this point in time patient has tried prescription antiperspirants. I would recommend her to dermatology for further evaluation and treatment. Referral given. Pt states understanding and agreement to above plan of care. Medication benefits, side effects and interactions reviewed. documented in this encounter Plan of Treatment Not on filedocumented as of this encounter Visit Diagnoses Diagnosis Axillary odor - Primary Other specified disorder of sweat glands documented in this encounter Care Teams Local Company Refrigerated Truck Driver Relationship Specialty Start Date End Date Md Leigh MD PCP - General 05/26/10 05/11/13 [place] [address] documented as of this encounter
--- OUTSIDE RECORDS SUMMARY | 2021-10-02 13:30 | XMS_ITS | Encounter Summary ---
:1985 Author Organization [facility] Address [address] [place] [address] Care Team Providers Name Role Phone Jie Farah DO Primary Care Provider Reason for Visit Reason Comments Refill SUMAtriptan (IMITREX) 100 MG tablet [Pharmacy Med Name: SUMATRIPTAN SUCC 100 MG TABLET] Encounter Details Date Type Department Care Team Description 06/19/2016 Refill [facility] [address] Laura Kennedy, Refill (SUMAtriptan Family Medicine [address] (IMITREX) 100 MG tablet [address] [Pharmacy Med Name: [address] [place], [place] SUMATRIPTAN SUCC 100 [place] [address] TABLET]) [address] [phone] Social History Tobacco Use Types Packs/Day Years [...] documented as of this encounter Nursing Notes Yary Ramsey RN - 06/20/2016 12:05 PM CDT Prescription refill request was declined-- Please see Reason for Refusal Comment below. Requested Prescriptions Refused Prescriptions Disp Refills ??? SUMAtriptan (IMITREX) 100 MG tablet [Pharmacy Med Name: SUMATRIPTAN SUCC 100 MG TABLET] 9 Tab Sig: TAKE 1 TABLET BY MOUTH NEEDED FOR MIGRAINE. MAY REPEAT AFTER 2 HOURS IF NEEDED. MAX OF 2 TABS/24 Refused By: YARY RAMSEY Reason for Refusal: Request Already Responded To By Other Means Interface, Out Surescripts Prov Query - 06/19/2016 7:15 AM CDT SUMAtriptan (IMITREX) 100 MG tablet [Pharmacy Med Name: SUMATRIPTAN SUCC 100 MG TABLET] Medication started: 06/01/2015 Last ordered by LAURA KENNEDY: 06/01/2015 (384 days ago) QTY: 9, Refills: 11, Sig: take 1 tablet bymouth as needed for migraine. may repeat after [...] missing or unreadable information. Last qualifying visit: 06/01/2015 (with LAURA KENNEDY) (A more recent visit (in Family Practice) was found) Next scheduled visit: None SBP: 112 mm Hg on 05/14/2016 DBP: 76 mm Hg on 05/14/2016 Powered by [email or web address], Reference: [id number], 06/19/2016 7:15:38 AM CDT, Pool: [id number] FM REFILL ([id number]) documented in this encounter Plan of Treatment Not on filedocumented as of this encounter Visit Diagnoses Not on filedocumented in this encounter Care Teams Electron Beam Welder Relationship Specialty Start Date End Date Jie Farah DO PCP - General Family Practice 04/05/16 [address] [place] [address] documented as of this encounter
--- OUTSIDE RECORDS SUMMARY | 2021-10-02 13:30 | XMS_ITS | Encounter Summary ---
:1985 Author Organization [facility] Address [address] [place] [address] Care Team Providers Name Role Phone Md MINA Leigh Primary Care Provider Reason for Visit Reason Comments Follow-up Encounter Details Date Type Department Care Team Description 09/10/2011 Office Visit [facility]ica Quiroz of [place] MD Elliott patella (Primary Dx) [address] [place] [address] [place], [place] [phone] (Wo rk) Social History Tobacco Use Types Packs/Day Years Used Date Smoking Tobacco: Never Assessed Sex Assigned at Date Recorded Not on file documented as of this encounter Progress Notes Angelica Thomas MD - 09/10/2011 3:42 PM CDT Progress Notes signed by Angelica Thomas MD at 09/12/11 9441 Author: Angelica Thomas MD Service: (none) Author Type: Physician Filed: 09/12/111718 Note Time: 09/10/11 1542 Status: Signed Pediatrician: Angelica Thomas MD (Physician) NAME: ODESSA TELLEZ VISIT: [id number] DICTATING CLINICIAN: ANGELICA THOMAS MD JOB: [id number] Med JOB: [id number] LOC: 3711 CLINIC PROGRESS NOTE DATE OF VISIT: 09/10/2011 : 1985 PROBLEM: Fracture, left patella. SUBJECTIVE: Ms. Tellez is a 25-year-old woman who 2-1/2 weeks ago fell landing on her kneecap and experiencing a vertical nondisplaced or minimally displaced fracture of the left patella. She has been in a knee immobilizer since that time. She has minimally been working on range of motion, but has continued to use crutches and the knee immobilizer. She is here now in followup stating the knee is feeling quite comfortable. With weightbearing activities she sometimes feels slight pulling across the anterior knee. OBJECTIVE: On exam, there is no swelling about the knee. The knee is symmetrical with the uninvolved knee. There is no evidence of any patellar abnormality. She is able to, with the knee extended, flex the hip with no lag and she is able to voluntarily flex the knee 15 degrees and is able to extend against resistance from that point. Passively, I am able to get another 5-10 degrees, but she experiences a pulling sensation. There is minimal tenderness with palpation over the patella. No tenderness over the medial or lateral aspect of the patella. With weightbearing she is comfortable as long as the knee is minimally flexed. ASSESSMENT: Nondisplaced fracture of the left patella. PLAN: She will stop using crutches, continue the knee immobilizer, work very cautiously on range of motion. I will reexamine in 2 weeks and hopefully with repeat x-ray and initiate physical therapy at that time as we start working toward return to full activity. IM: 09/10/2011 04:22:59 pm MT: 25 documented in this encounter Plan of Treatment Not on filedocumented as of this encounter Visit Diagnoses Diagnosis Closed fracture of patella - Primary documented in this encounter Care Teams Pyrometer Temperature Regulator Relationship Specialty Start Date End Date Md Leigh MD PCP - General 05/26/10 05/11/13 [place] [address] documented as of this encounter
--- OUTSIDE RECORDS SUMMARY | 2021-10-02 13:30 | XMS_ITS | Encounter Summary ---
:1985 Author [facility] Address [address] [place] [address] Care Team Providers Name Role Phone Md MINA Leigh Primary Care Provider Reason for Visit Reason Comments Lab Draw Encounter Details Date Type Department Care Team Description 02/19/2012 Telephone [facility] Consuelo Lopez MD Lab Draw [address] [facility] [address] [place] [address] [place], [place] [address] (Wo rk) Social History Tobacco Use Types Packs/Day Years Used Date Smoking Tobacco: Never Assessed Sex Assigned at Date Recorded Not on file documented as of this encounter Nursing Notes Mindy Alcaraz LPN - 02/19/2012 10:30 AM CST Pt was left message, second reminder after letter dated 01/31/12, requesting pt make lab appt for overdue lab, Hgb which was ordered by Nanette Bravo N.P. who has left [facility]. Also requested that pt call us back and let us know if plans on getting lab done. documented in this encounter Plan of Treatment Not on filedocumented as of this encounter Visit Diagnoses Not on filedocumented in this encounter Care Teams Computer Tape Librarian Relationship Specialty Start Date End Date Md Leigh MD PCP - General 05/26/10 05/11/13 [place] [address] documented as of this encounter
--- OUTSIDE RECORDS SUMMARY | 2021-10-02 13:30 | XMS_ITS | Encounter Summary ---
:1985 Author Organization [facility] Address [address] [facility] [place] [address] Care Team Providers Name Role Phone Denisse Sue DO Primary Care Provider Reason for Visit Reason Onset Date Comments Refill 12/26/2015 June Encounter Details Date Type Department Care Team Description 12/26/2015 [facility] Nicholas Kay, Derick PRN, MINE UTILITY OPERATOR Refill () Obstetrics/Gynecolog y [address] [place] [address] [place], [place] [phone] (Wo rk) Social History Tobacco Use Types Packs/Day Years Used Date Smoking Tobacco: Never Alcohol Use Standard Drinks/Week Comments Yes 0 (1 standard drink = 0.6 oz pure alcoho l) 1- 2 drinks per week Alcohol Habits Answer Date Recorded How often do you have a drink containing alcohol? Not asked How many drinks containing alcohol do you have on Not asked a typical day when you are drinking? How often do you have six or more drinks on one Not asked occasion? Comment: 1- 2 drinks per week 10/14/2015 Sex Assigned at Date Recorded Not on file documented as of this encounter Nursing Notes Ruiz Renee RN - 12/26/2015 9:57 AM CDT Renewed medication per medication refill protocol. Future Appointments Date Time Provider Department Center 03/04/2016 9:30 AM Nicholas Kay CONTROL CLERK HEAD, MINE UTILITY OPERATOR [facility] Requested Prescriptions Signed Prescriptions Disp Refills ??? Norethin Tan-Eth Estrad-FE () 1-20 MG-MCG tablet 84 Tab 0 Sig: Take 1 Tab by mouth daily. Authorizing Provider: NICHOLAS KAY Ordering User: RUIZ RENEE Ruiz Renee RN - 12/26/2015 9:56 AM CDT From: Simona Che To: Nicholas Kay APRN, CNP Sent: 12/26/2015 8:05 AM CDT Subject: Medication Renewal Request Original authorizing provider: Nicholas Kay APRN, CNP Kathryn M Hansen would like a refill of the following medications: Norethin Tan-Eth Estrad-FE (AKA 03/15) 1-20 MG-MCG tablet [Nicholas Kay APRN, CNP] Preferred pharmacy: [address] Comment: Hi - I have an annual appointment scheduled on 03/04 and my control will run out a few days before my appointment. Would it be possible to get one more month filled so that it will last until myappointment with Dr. Kay? Thank you. documented in this encounter Plan of Treatment Not on filedocumented as of this encounter Visit Diagnoses Not on filedocumented in this encounter Care Teams Real Estate Director Relationship Specialty Start Date End Date Denisse Sue DO PCP - General 05/12/13 04/04/16 [address] [place] [address] documented as of this encounter
--- OUTSIDE RECORDS SUMMARY | 2021-10-02 13:30 | XMS_ITS | Encounter Summary ---
:1985 Author [facility] Address [address] [place] [address] Care Team Providers Name Role Phone Denisse Sue Primary Care Provider Reason for Visit Reason Comments Post-Op Check Encounter Details Date Type Department Care Team Description 06/07/2013 Office Visit [facility] [address] Nurse, [id number] Pod Local ized superficial Podiatric MedSurg swelling, mass, or lump [address] [place] [address] Social History Tobacco Use Types Packs/Day Years Used Date Smoking Tobacco: Never Assessed Sex Assigned at Date Recorded Not on file documented as of this encounter Patient Instructions Patient InstructionsPriscilla Miles RN - 06/07/2013 8:09 AM CDT Pt will continue with weightbearing in the air cast boot and will elevate as much as possible. She will follow up as scheduled next week for suture removal. Nurse line number to call with any concerns is [phone] documented in this encounter Progress Notes Priscilla Miles RN - 06/07/2013 8:09 AM CDT Podiatric Medicine and Surgery Post-operative Note Surgeon: Elizabeth Hurtado DPM DOS: 05.28.2013 Surgery: Soft Tissue Mass Excision Left Foot, Repair Tibialis Anterior Tendon Left Days Post-op: 10 Weight Bearing Status: WBAT in the air cast boot. Pain Location: Foot/Ankle Pain Ratin/10 Pain Medication: OTC and Percocet at hs. Post-operative Dressing: Dressing removed in clinic. Tall air cast boot applied following dressing change. Incision: Dry, well approximated, no S/S infection noted, minimal swelling. Drainage: None noted. Wound Care: Betadine applied to the incision along with a new dressing. Assessment: Normal post-operative healing and progress. Pt. verbalized understanding of post-operative plan. Pt. will continue WBAT in the air cast boot and will elevate as much as possible. She will return tot clinic next week for suture removal. Pt. will call with any concerns. documented in this encounter Plan of Treatment Not on filedocumented as of this encounter Visit Diagnoses Diagnosis Localized superficial swelling, mass, or lump - Primary documented in this encounter Care Teams Ticket Writer Relationship Specialty Start Date End Date Denisse Sue DO PCP - General 05/12/13 04/04/16 [address] [place] [address] documented as of this encounter
--- OUTSIDE RECORDS SUMMARY | 2021-10-02 13:30 | XMS_ITS | Encounter Summary ---
:1985 Author Organization [facility] Address [address] [place] [address] Care Team Providers Name Role Phone Md MINA Leigh Primary Care Provider Reason for Visit Reason Comments Follow-up Encounter Details Date Type Department Care Team Description 09/24/2011 Office Visit [facility] Angelica Thomas (Primary CENTER MD Elliott Dx) [address] [place] [address] [place], [place] [phone] (Wo rk) Social History Tobacco Use Types Packs/Day Years Used Date Smoking Tobacco: Never Assessed Sex Assigned at Date Recorded Not on file documented as of this encounter Progress Notes Angelica Thomas MD - 09/24/2011 4:45 PM CDT Progress Notes signed by Angelica Thomas MD at 09/30/11 0925 Author: Angelica Thomas MD Service: (none) Author Type: Physician Filed: 09/30/11924 Note Time: 09/24/11 9155 Status: Signed Nuclear Unit Operator: Angelica Thomas MD (Physician) NAME: ODESSA CHE VISIT: [id number] DICTATING CLINICIAN: ANGELICA THOMAS MD JOB: [id number] Med JOB: [id number] LOC: 3711 CLINIC PROGRESS NOTE DATE OF VISIT: 09/24/2011 : 1985 PROBLEM: Follow up left patella fracture. SUBJECTIVE: Ms. Che is now slightly over four weeks post injury when she fell on her patella and had a vertical fracture of her left patella. She has been in a knee immobilizer, gradually weaning from it around home but using it at other times. She is essentially pain-free but experiences some tightness when she tries to move her knee. She denies any other complications at this time. OBJECTIVE: EXAM OF THE KNEE: Shows no obvious deformity. She can actively extend the knee to 0 degrees and flex in a supine position to approximately 20 degrees. Passively, I can flex it a little bit more than that, and when in a seated position, she can flex to about 60 degrees. With the knee extended, she can flex the hip with no lag. She can also go from a slightly flexed position to full extension with no extensor lag. She has adequate strength with no pain with resisted hip flexion with knee extended or with resisted knee extension with the knee flexed. There is no palpable tenderness to palpation over the fracture site. X-RAY: X-rays were ordered and independently reviewed by me. Two views of the left knee. The AP view shows the lucency visible on the PA view. The sunrise view shows early ossification of the fracture site. Conclusion: Healing longitudinal fracture of the patella. ASSESSMENT: Healing fracture of left patella. PLAN: At this point she will wean herself from the knee immobilizer. Will do normal weightbearing activities, considering biking and elliptical as early fitness activities as symptoms permit. Discussed a return to running and criteria for doing so and gradual progression. She will also attend physical therapy for range of motion and strengthening activities to assure a safe return to running. Will follow up in one month for final evaluation. IM: 09/24/2011 05:14:42 pm MT: 10 documented in this encounter Plan of Treatment Not on filedocumented as of this encounter Procedures Procedure Name Priority Date/Time Associated Diagnosis Comme nts XR KNEE LT 2 VIEWS Routine 09/24/2011 4:17 PM Fx patella Res ults for this CDT procedure are i n the results section. documented in this encounter Results XR Knee Lt 2 Views (09/24/2011 4:17 PM CDT) Anatomical Region Laterality Modality Lower Extremity, Knee Other Specimen (Source) Anatomical Location Collection Method / Collectio n Time Received Time / Laterality Volume Narrative 09/30/2011 9:28 AM CDT Two views of the left knee. ?? The AP view shows the lucency visible on the PA view. The sunrise view shows early ossification of the fra cture site. ?? Conclusion: ??Healing longitudinal fract ure of the patella. ?? RJJ/bre Procedure Note Angelica Thomas MD - 08/12/2015For matting of this note might be different from the original. Two views of the left knee. The AP view shows the lucency visible on the PA view. The sunrise view shows early ossification of the fra cture site. Conclusion: Healing longitudinal fractur e of the patella. RJJ/bre Angelica Thomas MD RAD GD documented in this encounter Visit Diagnoses Diagnosis Fx patella - Primary Closed fracture of patella documented in this encounter Care Teams Hot Pipe Gauger Relationship Specialty Start Date End Date Md Leigh MD PCP - General 05/26/10 05/11/13 [place] [address] documented as of this encounter
--- OUTSIDE RECORDS SUMMARY | 2021-10-02 13:30 | XMS_ITS | Encounter Summary ---
:1985 Author Organization [facility] Address [address] [place] [address] Care Team Providers Name Role Phone Denisse Sue DO Primary Care Provider Reason for Visit Reason Comments Annual Exam Encounter Details Date Type Department Care Team Description 03/02/2015 [facility] Nicholas Kay Preventativ e health care (Primary Dx); Obstetrics/Gynecolog DON GRANT Pap smear, as part of routine gynecologi bre examination; y [address] Screen for STD (sexually tra nsmitted disease); [address] Counseling for control, oral contr aceptives [facility] [address] [place] [address] [place], [place] [phone] Social History Tobacco Use Types Packs/Day Years Used Date Smoking Tobacco: Never Assessed Sex Assigned at Date Recorded Not on file documented as of this encounter Last Filed Vital Signs Vital Sign Reading Time Taken Comments Blood Pressure 109/73 03/02/2015 8:28 AM PRACTICAL NURSING TEACHER Pulse 65 03/02/2015 8:28 AM PRACTICAL NURSING TEACHER Temperature - - Respiratory Rate - - Oxygen Saturation - - Inhaled Oxygen Concentration - - Weight 55.4 kg (122 lb 1.6 oz) 03/02/2015 8:28 AM PRACTICAL NURSING TEACHER Height 168.3 cm (5' 6.25) 03/02/2015 8:28 AM PRACTICAL NURSING TEACHER Body Mass Index 19.56 03/02/2015 8:28 AM PRACTICAL NURSING TEACHER documented in this encounter Patient Instructions Patient InstructionsNicholas Kay APRN, CNP - 03/02/2015 9:01 AM CST It is good to meet with you today Kimberley for your well visit. I am happy to report your exam is normal. A Pap smear with HPV testing was collected today. If your Pap smear is normal and HPV test is negative, your next Pap smear is due in 3 years. Yearly physical exams are still recommended. You will receive your Pap smear results in 2-3 weeks, this will be sent to your MyChart. A culture for gonorrhea and Chlamydia was collected. You will be called with these results indicate infection and treatment, otherwise if no infection identified your results will be on [facility] . Your control pills have been refilled for another year. We discussed the episode of headaches that you have experienced over the last 2 months. Because of their location, it could be associated with the sinus area. I would suggest a decongestant with ibuprofen or acetaminophen. If headaches intensify, if you develop nausea and vomiting, visual changes I recommend you seek immediate care for evaluation. I am always available through [facility] or by calling the nurse triage line at [phone]. Have a great 2016 Kimberley! TICAL NURSING TEACHER documented in this encounter Progress Notes Amy Romero RN - 03/09/2015 8:57 AM PRACTICAL NURSING TEACHER Quick Note: Dear Simona, I am writing to let you know that your PAP and HPV result is negative. This means that your test result was normal. No cancer or precancerous cells were seen. Based on current cervical cancer screening recommendations, your next PAP and HPV should be in 3 years. Continue to schedule your annual preventive exams for your overall health. If you have questions about cervical cancer screening or your test results, call Cervical Cancer Screening and Management Team [phone] Sincerely, Amy Romero RN on behalf of Dr. Airam Obando, Clip Riveter Rosalinda Dang Cervical Cancer Screening and Management TICAL NURSING TEACHER Nicholas Kay APRN, CNP - 03/02/2015 9:07 AM CST Subjective: Simona CheKimberley is a 29 y.o. female with an LMP of: Patient's last menstrual periodwas 02/26/2015 (exact date). Presents as a known patient to me for an annual exam. Concerns: In the last week of her active oral contraceptives, over the past 2 cycles, she has experienced a headache. This headache is either to the left or right side, seems to focus in the facial area, likely associated with sinus. This headache may take 2 days to resolve. She has no visual changes, she has no nausea or vomiting. The usual sinusmigraine medication she takes does not effectively resolve the pain. She is in a new relationship, accepting of STD screening. Past Medical History: Past Medical History Diagnosis Date ??? Anemia ??? Irregular menstrual cycle ??? Migraine, unspecified, without mention of intractable migraine without mention of status migrainosus ??? Immunization, other disease ??? Trauma 08/2011 Fractured patella ??? Urinary tract infection 05/2010 Pyelonephritis ??? Varicella Past Surgical History: Past Surgical History Procedure Laterality Date ??? Villalba tooth extraction ??? Foot surgery 2012 Family History: Family History Problem Relation Age of Onset ??? Thyroid Disease Mother ??? High Cholesterol Father ??? Cancer Maternal Grandfather leukemia ??? Diabetes Paternal Grandfather Gynecologic History: Period Cycle (Days): 28 Period Duration (Days): (4-6 days) Period Pattern: Regular Menstrual Flow: Light Dysmenorrhea: (!) Mild Dysmenorrhea Symptoms: Cramping Relationship duration: 4 months Obstetric History T0 TAB0 SAB0 E0 M0 L0 History Social History ??? Marital Status: Single Spouse Name: N/A Number of Children: 0 ??? 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 Smoking status: Never Smoker ??? Smokeless tobacco: Not on file ??? Alcohol Use: 0.0 oz/week 1-2 Not specified per week Comment: 1- 2 drinks per week ??? Drug Use: No ??? Sexual Activity: Partners: Male Control/ Protection: OCP Other Topics Concern ??? Bike Helmet No ??? City Water Yes ??? Exercise Yes Yoga one time/week. Running 3-10 miles 5-6 days a week ??? Guns In Home No ??? Seat Belt Yes ??? Special Diet No ??? Weight Concern No Social History Narrative Health Maintenance: Lab Results Component Value Date/Time CHOLESTEROL 159 07/30/2012 1211 HDL CHOLESTEROL 84 07/30/2012 1211 pelvic ultrasound: N/a No results found for: GLUC Immunization History Administered Date(s) Administered ??? DTP 02/11/1984, 04/17/1984, 06/12/1984 ??? MMR 03/12/1985 ??? Oral Polio Vaccine 02/11/1984, 04/17/1984 ??? Tdap (Boostrix) 07/30/2012 Current Outpatient Prescriptions Medication Sig Dispense Refill ??? norethindrone-ethinyl estradiol (MICROGESTIN FE 03/15, ,) 1 mg-20 mcg (21)/75 mg (7) per tabletTake 1 tablet by mouth daily (every 24 hours). Follow package directions 84 tablet 3 No current facility-administered medications for this visit. No Known Allergies Review of Systems Headaches noted frontal aspect of the face either to the left or right side typically in the sinus area Ears, nose, mouth, throat, and face: negative Respiratory: negative Cardiovascular: negative Gastrointestinal: negative Genitourinary:negative Integument/breast: negative Musculoskeletal:negative Objective: BP 109/73 mmHg Pulse 65 Ht 5' 6.25 (1.683 m) Wt 122 lb 1.6 oz (55.384 kg) BMI 19.55 kg/m2 LMP 02/26/2015 (Exact Date) General Appearance: Alert, cooperative, no distress, appears stated age Eyes: PERRL, conjunctiva/corneas clear, EOM's intact, fundi benign, both eyes Ears: Normal TM's and external [...] Normal female without lesion, discharge or tenderness. vagina: Rugae present, no erythema. Brown mucus discharge noted end of menses. Cervix: Culture for gonorrhea and Chlamydia obtained. Pap with HPV. Bimanual exam: Uterus is small, smooth, nontender with motion, left and right adnexa unremarkable. Rectal: Normal tone, no masses or tenderness Extremities: Extremities normal, atraumatic, no cyanosis or edema Skin: Skin color, texture, turgor normal, no rashes or lesions Lymph nodes: Cervical, supraclavicular, and axillary nodes normal . Assessment: Diagnosis and Associated Orders ICD-10-CM ICD-9-CM 1. Preventative health care Z00.00 V70.0 2. Pap smear, as part of routine gynecological examination Z12.4 V76.2 [facility] OBTAINING SCREEN PAP SMEAR Pap Test Order 3. Screen for STD (sexually transmitted disease) Z11.3 V74.5 Chlamydia and GC STD 4. Counseling for control, oral contraceptives Z30.9 V25.01 Plan: Preventive care guidelines reviewed. Pap smear and STD screening pending. Continuation of oral contraceptives. Recommend decongestant with acetaminophen or NSAID for pain management when she has sinustype headaches. See patient instructions Orders Placed This Encounter ??? Chlamydia and GC STD Order Specific Question: Source Answer: Cervix Order Specific Question: Ordering Provider? (, Miladys, DIGITAL SALES ASSISTANT, or PA Only) Answer: NICHOLAS KAY [[id number]] ??? Pap Test Order Order Specific Question: LMP (Date) Answer: 02/26/15 Order Specific Question: Abnormal Bleeding? Answer: No Order Specific Question: Menstrual Status Answer: None Apply Order Specific Question: Current form of therapy Answer: Hormone Therapy Order Specific Question: Hx of abnormal Pap test/PROGRAM AIDE cancer outside of [facility]? Answer: No Order Specific Question: Pap Source Answer: Cervical Order Specific Question: Pap test type Answer: Screening Order Specific Question: HPV Testing Answer: HPV Regardless of Pap Results (Screening age 30+) Order Specific Question: Ordering Provider? (Miladys Almonte, DIGITAL SALES ASSISTANT, or PA Only) Answer: NICHOLAS KAY [[id number]] ??? HPV with 16 18 Genotyping ??? [facility] OBTAINING SCREEN PAP SMEAR ??? norethindrone-ethinyl estradiol (MICROGESTIN FE 03/15, ,) 1 mg-20 mcg (21)/75 mg (7) per tablet Sig: Take 1 tablet by mouth daily (every 24 hours). Follow package directions Dispense: 84 tablet Refill: 3 Patient Instructions It is good to meet with you today Kimberley for your well visit. I am happy to report your exam is normal. A Pap smear with HPV testing was collected today. If your Pap smear is normal and HPV test is negative, your next Pap smear is due in 3 years. Yearly physical exams are still recommended. You will receive your Pap smear results in 2-3 weeks, [facility] A culture for gonorrhea and Chlamydia was collected. You will be called with these results indicate infection and treatment, otherwise if no infection identified [facility] Your control pills have been refilled for another year. We discussed the episode of headaches that you have experienced over the last 2 months. Because of their location, it could be associated with the sinus area. I would suggest a decongestant with ibuprofen or acetaminophen. If headaches intensify, if you develop nausea and vomiting, visual changes I recommend you seek immediate care for evaluation. I am always available through [facility] or by calling the nurse triage line at [phone]. Have a great 2016 Kimberley! Current Control: Oral contraceptives TICAL NURSING TEACHER documented in this encounter Miscellaneous Notes Miscellaneous - 04/03/2016 11:05 PM CSTNotes Recorded by Amy Romero, RN on 03/09/2015 at 8:57 Stanley Jarvis,I am writing to let you know that your PAP and HPV result is negative. This means that your test result was normal. No cancer or precancerous cells were seen.Based on current cervical cancer screening recommendations, your next PAP and HPV should be in 3 years. Continue to schedule your annual preventive exams for your overall health.If you have questions about cervical cancer screening or your test results, callCervical Cancer Screening and Management [phone],Leslie B Carpenter, RN on behalf ofDr. Airam Obando, Medical DirectorCannon Falls [facility] Clinic Cervical Cancer Screening and Management TICAL NURSING TEACHER Miscellaneous - 04/03/2016 11:05 PM CSTNotes Recorded by Amy Romero, RN on 03/09/2015 at 8:57 Stanley Simona,I am writing to let you know that your PAP and HPV result is negative. This means that your test result was normal. No cancer or precancerous cells were seen.Based on current cervical cancer screening recommendations, your next PAP and HPV should be in 3 years. Continue to schedule your annual preventive exams for your overall health.If you have questions about cervical cancer screening or your test results, callCervical Cancer Screening and Management [phone],Amy Romero, RN on behalf ofDr. Airam Obando, Medical DirectorPark Laurence Cervical Cancer Screening and Management TICAL NURSING TEACHER documented in this encounter Plan of Treatment Not on filedocumented as of this encounter Procedures Procedure Name Priority Date/Time Associated Diagnosis Comme nts CHLAMYDIA & GC (14 Routine 03/02/2015 9:08 AM Screen for STD R esults for this YEARS AND OLDER) PRACTICAL NURSING TEACHER (sexually transmitted pr ocedure are in disease) the results section. PAP TEST ORDER Routine 03/02/2015 8:59 AM Pap smear, as part o f Results for this PRACTICAL NURSING TEACHER routine gynecological proced ure are in examination the results section. HPV WITH 16 18 Routine 03/02/2015 8:59 AM Results for this GENOTYPING, PRACTICAL NURSING TEACHER procedure are i n CERVICAL/ENDOCERVIC the resu lts AL section. ANATOMICAL PATH Routine 03/02/2015 8:59 AM Result s for this LIQUID BASED PRACTICAL NURSING TEACHER procedure are i n the results section. documented in this encounter Results Chlamydia & GC (03/02/2015 9:08 AM PRACTICAL NURSING TEACHER) [facility] gist Method Time Signature Chlamydia Negative Negative HP CONVERSION Trachomatis STD Comment: Test Performed by Clothing Manager Mediated Amplification CLIA Number [id number] N. gonorrhoeae STD Negative Negative HP CONVERSI ON Comment: Test Performed by Clothing Manager Mediated Amplification Performed at [facility], [address] ??[address] CLIA Number [id number] Source STD Cervix HP CONVERSION Comment: CLIA Number [id number] Specimen Anatomical Collection Method Collection Time Receive d Time (Source) Location / / Volume Laterality 03/02/2015 9:08 AM 6 3:29 PRACTICAL NURSING TEACHER PM PRACTICAL NURSING TEACHER Nicholas A Rahul GRANT, NEUROPSYCHIATRIST LAB_1 Performing Organization Address City/State/ZIP Code Phon e Number HP CONVERSION Pap Smear (03/02/2015 8:59 AM PRACTICAL NURSING TEACHER) Specimen (Source) Anatomical Collection Method Collection Time Re ceived Time Location / / Volume Laterality 03/02/2015 8:59 AM PRACTICAL NURSING TEACHER Narrative HP CONVERSION - 03/06/2015 5:14 PM PRACTICAL NURSING TEACHER FINAL GYNECOLOGICAL CYTOLOGY REPORT Pathology #: [id number] ?Date Obtained: 03/02/2015 ? Date Received: 03/03/2015 INTERPRETATION/RESULTS: Negative for Intraepithelial Lesion or M alignancy. SPECIMEN ADEQUACY: Satisfactory for Evaluation. ??Endocervi bre cells/transformation zone component present. Verified on 03/06/2015 ??by MINIE BACCAM , [place](ASCP) (electronic signature) CLINICAL NOTES: ?Abnormal bleeding: No, LMP: 02/26, Menstrual status: None Apply, ?Current form of therapy: Hormon e Therapy LIQUID BASED PAP SMEAR SPECIMEN TYPE: ?ROUTINE CERVICAL PAP TEST PLEASE NOTE: The pap smear is a screening test design ed to aid in the detection of cervical cancer and its pre cursor lesions. It is not a diagnostic procedure and gulshan uld not be used as the sole means of detecting cervical cancer. Both false-positive and false-negative report s may occur. ? End of Report Performed at [facility], [address] [place] [address] Transcriptions 04/03/2016 11:05 PM CSTNotes Recorded by Amy Romero RN on 03/09/2015 at 8:57 Stanley Jarvis, I am writing to let you know that your PAP and HPV result is negative. This means that your test resu lt was normal. No cancer or precancerous cells were seen. Based on current cervical cancer screening recommendations, your next PAP and HPV should be in 3 years. Continue to schedule your annual preventive exams for your overall health. If you have questions about cervical can cer screening or your test results, call Cervical Cancer Screening and Management [phone],Amy Romero RN on behalf ofDr. Airam Obando, Clip Riveter [facility] Cervical Cancer Screening and Management Nicholsa Kay APRN, NEUROPSYCHIATRIST LAB_1 Performing Organization Address City/State/ZIP Code Phon e Number HP CONVERSION HPV with 16 18 Genotyping (03/02/2015 8:59 AM PRACTICAL NURSING TEACHER) [facility] Method Time Signature HPV High Risk Not Detected HP CONVERSION 16 HPV High Risk Not Detected HP CONVERSION 18 Other HPV Not Detected HP CONVERSION High Risk Not 16/18 Comment: The Otilio HPV Test is a qualitative in v itro test for the detection of Human Papillomavirus in [facility] patient specimens. ??The test utilizes amplifica tion of target DNA by Polymerase Chain Reaction (PCR) and n ucleic acid hybridization for the detection of 14 hi gh-risk (HR) HPV types. The assay tests for high risk typ es (16, 18, 31, 33, 35, 39, 45, 51, 52, 56, 58, 59, 66 and 6 8). NOTE: This test was developed and its pe rformance characteristics determined by [facility]. It has not been cleared or approved by [facility]. The laboratory is regulated under CLIA as qualified to perform high-complexity testing. This test is used for clinical purposes. It should not be regarded as investigational or fo r research. Specimen Anatomical Collection Method Collection Time Receive d Time (Source) Location / / Volume Laterality 03/02/2015 8:59 AM 6 8:59 PRACTICAL NURSING TEACHER AM PRACTICAL NURSING TEACHER Narrative HP CONVERSION - 03/08/2015 2:17 PM PRACTICAL NURSING TEACHER Performed at [facility], [facility] [place] [address] CLIA number [id number] Transcriptions 04/03/2016 11:05 PM CSTNotes Recorded by Amy Romero RN on 03/09/2015 at 8:57 Stanley Jarvis, I am writing to let you know that your PAP and HPV result is negative. This means that your test resu lt was normal. No cancer or precancerous cells were seen. Based on current cervical cancer screening recommendations, your next PAP and HPV should be in 3 years. Continue to schedule your annual preventive exams for your overall health. If you have questions about cervical can cer screening or your test results, call Cervical Cancer Screening and Management [phone] Contreras RN on behalf ofDr. Airam Obando, Clip Riveter Rosalinda Bradyllet Cervical Cancer Screening and Management Nicholas Kay APRN, DON LAB_1 Performing Organization Address [facility] Phon e Number HP CONVERSION Pap Test Order (03/02/2015 8:59 AM PRACTICAL NURSING TEACHER) [facility] Method Time Signature Pap Smear Collected HP CONVERSION Monolayer tracking test Specimen Anatomical Collection Method Collection Time Receive d Time (Source) Location / / Volume Laterality 03/02/2015 8:59 AM 6 8:49 PRACTICAL NURSING TEACHER AM PRACTICAL NURSING TEACHER Nicholas Kay APRN, DON LAB_1 Performing Organization Address [facility] Phon e Number HP CONVERSION documented in this encounter Visit Diagnoses Diagnosis Preventative health care - Primary Routine general medical examination at a health care facility Pap smear, as part of routine gynecologi bre examination Screening for malignant neoplasm of the cervix Screen for STD (sexually transmitted dis ease) Screening examination for venereal disea se Counseling for control, oral contr aceptives General counseling for prescription of o ral contraceptives documented in this encounter Care Teams Servicer Travel Trailers Relationship Specialty Start Date End Date Denisse Sue DO PCP - General 05/12/13 2 [address] [place] [address] documented as of this encounter
--- OUTSIDE RECORDS SUMMARY | 2021-10-02 13:30 | XMS_ITS | Encounter Summary ---
:1985 Author Organization [facility] Address [address] [place] [address] Care Team Providers Name Role Phone Denisse Sue Primary Care Provider Reason for Visit Reason Comments Refill Encounter Details Date Type Department Care Team Description 05/19/2015 [facility]ill [facility] Nanette Kay A PRN, CNP Refill Obstetrics/Gynecolog y [address] [facility] [address] [place] [address] [place], [place] [address] (Wo rk) Social History Tobacco Use Types Packs/Day Years Used Date Smoking Tobacco: Never Assessed Sex Assigned at Date Recorded Not on file documented as of this encounter Miscellaneous Notes Refill (Converted) - Ketty, Leslie Provider - 05/19/2015 7:56 AM CDT RE: Medication Renewal Request From User: LOULOU STEPHENS Julie Rice renewed your prescription in February for a full year. Please contact your pharmacy for a refill. If you want to switch pharmacies call the [facility] [place] and they will call [facility] [address] (which is where your prescription was sent) and they will transfer it. Thank you! Loulou Snyder COLLAR STITCHER Triage ----- Message ----- From: ODESSA CHE Sent: 05/19/2015 6:56 AM CDT To: Nanette Kay APRN, CNP Subject: Medication Renewal Request Original authorizing provider: Nanette Kay APRN, SCHOOL VOCATIONAL EDUCATOR Odessa Che would like a refill of the following medications: norethindrone-ethinyl estradiol (MICROGESTIN FE 03/15, ,) 1 mg-20 mcg (21)/75 mg (7) per tablet [Nanette Kay APRN, DON] Preferred pharmacy: [facility] [address] [place] [address] [facility] Comment: documented in this encounter Plan of Treatment Not on filedocumented as of this encounter Visit Diagnoses Not on filedocumented in this encounter Care Teams Apartment Groundskeeper Relationship Specialty Start Date End Date Denisse Sue DO PCP - General 05/12/13 04/04/16 [address] [place], [place] [id number] documented as of this encounter
--- OUTSIDE RECORDS SUMMARY | 2021-10-02 13:30 | XMS_ITS | Encounter Summary ---
:1985 Author Organization [employer] Address [address] [place] [address] Care Team Providers Name Role Phone Denisse Sue Primary Care Provider Reason for Visit Reason Comments HEADACHE,MIGRAINE Encounter Details Date Type Department Care Team Description 04/08/2015 Hospital Encounter [facility] Lillian aura and without [address] status migr ainosus, [address] not intractable [facility], [address] [place] [id number] Social History Tobacco Use Types Packs/Day Years Used Date Smoking Tobacco: Never Assessed Sex Assigned at Date Recorded Not on file documented as of this encounter Last Filed Vital Signs Vital Sign Reading Time Taken Comments Blood Pressure 112/70 04/08/2015 2:46 PM WAVE SOLDERING MACHINE OPERATOR Pulse 89 04/08/2015 2:46 PM WAVE SOLDERING MACHINE OPERATOR Temperature 36.7 ??C (98.1 ??F) 04/08/2015 2:46 PM WAVE SOLDERING MACHINE OPERATOR Respiratory Rate 16 04/08/2015 2:46 PM WAVE SOLDERING MACHINE OPERATOR Oxygen Saturation - - Inhaled Oxygen Concentration - - Weight - - Height - - Body Mass Index - - documented in this encounter Medications at Time of Discharge Medication Sig Dispensed Refills Start Date End Date Norethin Tan-Eth Take 1 tablet by 84 tablet 3 03/02/2015 Estrad-FE (AKA JUNEL FE mouth daily (every 03/15) 1-20 MG-MCG tablet 24 hours). Follow package directions ondansetron (aka ZOFRAN) Take 2 tablets by 30 tablet 0 03/2709/01/2015 disintegrating tablet mouth every 8 hours as needed for Nausea or Vomiting. Dissolve tablet on tongue ondansetron (ZOFRAN-ODT) Take 2 tablets by 30 tablet 0 03/2703/04/2016 4 MG disintegrating mouth every 8 hours tablet as needed for Nausea or Vomiting. Dissolve tablet on tongue SUMAtriptan (aka IMITREX) Take 1 tablet by 9 tablet 0 03/2706/01/2015 tablet mouth as needed for Migraine. May repeat after 2 hours if needed. Max 2 tabs/24 hours. Max 9 days/month documented as of this encounter ED Notes Norman Liao MD - 04/08/2015 3:50 PM CST SUBJECTIVE: Simona Che is a 29 y.o.female who presents to Urgent Care complaining of a migraine headache that started yesterday. Patient felt a headache coming on in the morning and gradually increased to migraine intensity. Patient is sensitive to light and has been nauseated but has not vomited. She states that she has been having migraine headaches since college. This headache is less than longer than usual which is why she came in today. She usually takes Excedrin Migraine however that wasnot effective. She tried Sudafed thinking this might be a sinus issue but that did not help either. Patient does not get auras prior to the onset of a headache. She has had no fever or shaking chills, speech or swallow difficulties, loss of consciousness or seizure activity. Pain is localized behind the right eye which is normal for her. Past Medical History: Reviewed in [facility] Social History: Reviewed in [facility] Review of Systems: See HPI, all other systems are negative. OBJECTIVE: Vital Signs: BP 112/70 mmHg Pulse 89 Temp(Src) 36.7 ??C (98 ??F) (Oral) Resp 16 Physical Exam: General: This is an uncomfortable appearing 29-year-old white female sitting quietly on a chair the treatment room. Patient does not look acutely ill. HEAD: No signs of trauma. EYES: Extraocular movements are intact. Pupils are equal, round and briskly reactive to light. No scleral icterus. There is noticeable photophobia. ENT: Oropharynx is clear, airway is widely patent. CARDIOVASCULAR: Regular rate and rhythm and without murmurs, rubs or gallops. RESPIRATORY: Respirations are quiet and non-labored, lungs sounds are clear and equal bilaterally. There is equal chest rise with respiration. SKIN: Warm, dry, normal color. No rashes, petechiae or ecchymoses. NEUROLOGIC: Patient is alert, oriented and appropriately interactive, cranial nerves II-XII are intact, motor is non-focal. Medications SUMAtriptan (IMITREX) injection 6 mg (6 mg Subcutaneous Given 04/08/15 1508) ondansetron (ZOFRAN-ODT) disintegrating tablet 8 mg (8 mg Oral Given 04/08/15 1500) Labs: None X-rays: No results found. Impression: Diagnosis ICD-10-CM ICD-9-CM 1. Migraine without aura and without status migrainosus, not intractable G43.009 346.10 Medical Decision Making: There is nothing about the patient's clinical presentation worrisome for more severe pathology. Patient was given subcutaneous Imitrex as well as Zofran and had substantial improvement in her symptoms.After 30 minutes the patient was ready to go home and feeling much better. Plan: Patient be discharged home with oral Imitrex as well as Zofran. She will follow- up with her primary care physician as an outpatient. Medications Prescribed this Visit Disp Refills Start End SUMAtriptan (IMITREX) 100 mg tablet 9 tablet 0 04/08/2015 04/07/2016 Take 1 tablet by mouth as needed for Migraine. May repeat after 2 hours if needed. Max 2 tabs/24 hours. Max 9 days/month Oral ondansetron (ZOFRAN-ODT) 4 mg disintegrating tablet 30 tablet 0 04/08/2015 Take 2 tablets by mouth every 8 hours as needed for Nausea or Vomiting. Dissolve tablet on tongue Oral Follow-Up Care Follow up with Denisse Sue DO. Specialty: Family Medicine Why: In the next 1-2 weeks for a recheck. Contact information [address] [facility] [phone] SOLDERING MACHINE OPERATOR Cherelle Clay RN - 04/08/2015 3:32 PM CST rechecked on pt. pt states pain level now 3/10 to head. pt states feels much better. SOLDERING MACHINE OPERATOR Cherelle Clay RN - 04/08/2015 3:11 PM CST pt resting on table, no distress noted. pt states migraine 8/10 now. will monitor and recheck post Zofran and Imitrex. SOLDERING MACHINE OPERATOR documented in this encounter Miscellaneous Notes Medication History - Bob Saavedra MD - 04/08/2015 3:50 PM CST INPATIENT MEDS Encounter Date: 04/08/15 SUMAtriptan (IMITREX) 100 mg tablet Start Date:04/08/15, End Date:06/01/15, Frequency:PRN *No Administrations Recorded ondansetron (ZOFRAN-ODT) 4 mg disintegrating tablet Start Date:04/08/15, End Date:-, Frequency:EVERY 8 HOURS PRN *No Administrations Recorded SUMAtriptan (IMITREX) injection 6 mg Start Date:04/08/15, End Date:04/08/15, Frequency:ONCE Taken Dose Action User Route Site Recorded Comment Reason 04/08/15 1508 6 mg Given Cherelle Clay RN Subcutaneous Right Arm 04/08/15 1510 - - ondansetron (ZOFRAN-ODT) disintegrating tablet 8 mg Start Date:04/08/15, End Date:04/08/15, Frequency:ONCE Taken Dose Action User Route Site Recorded Comment Reason 04/08/15 1500 8 mg Given Cherelle Clay RN Oral - 04/08/15 1510 - - SOLDERING MACHINE OPERATOR ED AVS Snapshot - Bob Saavedra MD - 04/08/2015 3:50 PM CST Images from the original note were not included. [facility] [address] [facility] [address] [place] [phone] Dept: [phone] [email or web address] Simona Che 04/08/2015 2:41 PM Hospital Encounter Description: Female : 1985 Department: [facility] Thank you for choosing [facility] for your health care visit with Norman Liao MD. We are happy to care for you and provide this summary of your visit. Your primary medicare nurse is currently listed as Denisse Sue DO. HERE IS WHAT YOU NEED TO KNOW To learn how you can take steps to stay as healthy as you can be visit [email or web address] Discharge Instructions Migraine Headache: Care Instructions Your Care Instructions [...] Where can you learn more? Go to [employer] and enter [id number] in the search box. Current as of: April 15, 2014 Content Version: 107 ?? [id number] [employer]. HERE IS WHAT YOU NEED TO DO Call your clinic if: You develop new symptoms Your symptoms worsen unexpectedly You are not improving as expected You have questions about your visit or medications Follow-up Information Follow up with Denisse Sue DO. Specialty: Family Medicine Why: In the next 1-2 weeks for a recheck. Contact information: [address] [facility] [address] HERE IS INFORMATION FROM TODAY'S VISIT Reason for Visit Migraine Reason for Visit History Health issues considered by your clinician today Migraine without aura and without status migrainosus, not intractable If you had any tests, you will be notified of your abnormal results by your clinic. Medications administered today Administered Action ondansetron (ZOFRAN-ODT) disintegrating tablet 8 mg 04/08/2015 Given Administered Action SUMAtriptan (IMITREX) injection 6 mg 04/08/2015 Given MEDICATIONS As of today's visit, these are your current medications DOSAGE norethindrone-ethinyl estradiol (MICROGESTIN FE 03/15, ,) 1 mg-20 mcg (21)/75 mg (7) per tablet (Taking) Take 1 tablet by mouth daily (every 24 hours). Follow package directions ondansetron (ZOFRAN-ODT) 4 mg disintegrating tablet Take 2 tablets by mouth every 8 hours as neededfor Nausea or Vomiting. Dissolve tablet on tongue SUMAtriptan (IMITREX) 100 mg tablet Take 1 tablet by mouth as needed for Migraine. May repeat after2 hours if needed. Max 2 tabs/24 hours. Max 9 days/month Vital signs from your visit Your Vital Signs Were BP Pulse Temp(Src) Resp Smoking Status 112/70 mmHg 89 36.7 ??C (98 ??F) (Oral) 16 Never Smoker Allergies as of 04/08/2015 No Known Allergies Immunization History Reviewed on 03/02/2015 DTP 06/12/1984, 04/17/1984, 02/11/1984 MMR 03/12/1985 Oral Polio Vaccine 04/17/1984, 02/11/1984 TDAP (BOOSTRIX) 07/30/2012 About You Date Of Sex Race Ethnicity Preferred Language 1985 Female White Non- Tajik This document contains confidential information about your health and care. It is provided directlyto you for your personal, private use only. SOLDERING MACHINE OPERATOR documented in this encounter Plan of Treatment Not on filedocumented as of this encounter Visit Diagnoses Diagnosis Migraine without aura and without status migrainosus, not intractable Migraine without aura, without mention o f intractable migraine without mention of status migrainosus Triage Assessment Note - Cherelle Clay, RN - 04/08/2015 2:44 PM CST pt states has been having migraine for past 2 days, not getting any better. pt states when seen in primary in February and was advised to take sudafed for a sinus headache and hasn't helped with sx at all. tried taking Excedrin migraine with no relief. SOLDERING MACHINE OPERATOR documented in this encounter Care Teams Mobile Home Mechanic Relationship Specialty Start Date End Date Denisse Sue DO PCP - General 05/12/13 [address] [place] [address] documented as of this encounter
--- OUTSIDE RECORDS SUMMARY | 2021-10-02 13:30 | XMS_ITS | Encounter Summary ---
:1985 Author Organization [facility] Address [address] [place] [address] Care Team Providers Name Role Phone Md MINA Leigh Primary Care Provider Reason for Visit Reason Comments RESULTS, TEST Encounter Details Date Type Department Care Team Description 04/07/2013 Office Visit [facility] [address] Elizabeth Hurtado Loc alized superficial Podiatric MedSurg M, DPM swelling, mass, or [address] ([address] Dx) [place] [address] [phone] (Wo rk) Social History Tobacco Use Types Packs/Day Years Used Date Smoking Tobacco: Never Assessed Sex Assigned at Date Recorded Not on file documented as of this encounter Progress Notes Elizabeth Hurtado DPM - 04/07/2013 8:23 AM CST Progress Notes signed by Elizabeth Hurtado DPM at 04/14/1358 Author: Elizabeth Hurtado DPM Service: (none) Author Type: Physician Filed: 04/14/1358 Note Time: 04/07/13 1032 Status: Signed Church Supervisor: Elizabeth Hurtado DPM (Physician) NAME: ODESSA CHE MR#: [id number] CSN: [id number] AUTHENTICATING CLINICIAN: Elizabeth Hurtado DPM CONFIRM #: [id number] LOC: 439 CLINIC PROGRESS NOTE DATE OF VISIT: 04/07/2013 : 1985 SUBJECTIVE: The patient is a 27-year-old female seen today to discuss MRI results of her left foot. She has a palpable soft tissue mass that is somewhat bothersome when she runs where her shoe rubs. It is not painful for her currently. MEDICATIONS: Reviewed and updated in [facility]. ALLERGIES: No known drug allergies. REVIEW OF SYSTEMS: Denies numbness, tingling, swelling of either lower extremity. No history of blood clot, pulmonary embolism, or difficulty with anesthesia. OBJECTIVE: The patient is an alert and oriented 27-year-old female who is in no apparent distress. LOWER EXTREMITY EXAM: Neurovascular status is intact to the left foot. Skin is intact without rashesor scaling. There is a palpable soft tissue mass which is at least 2.5 cm diameter overlying the medial cuneiform navicular area somewhat fluctuant, seems consistent with ganglion cyst, is nontender totouch. Tibialis anterior tendon seems to be intact. There is no weakness with dorsiflexion of the left foot. Ankle, subtalar joint range of motion are within normal limits. We reviewed MRI images and report which shows a 1.9 x 0.9 x 0.8 lobular T2 hyperintense T1 hypointense lesion superficial to the distal tibialis anterior tendon proximal to the tendon insertion. There is a mild amount of increased T2 signal around the tibialis anterior tendon. The tibialis anterior tendon is intact. ASSESSMENT: Soft tissue mass, left foot, likely ganglion cyst. PLAN: Reviewed findings as far as MRI images and report. We discussed definitive treatment requires surgical excision. The lesion is very large. I think it is reasonable to go ahead and excise it for definitive diagnosis and treatment. The procedure was reviewed with the patient in detail including indications, contraindications, as well as possible complications, including but not limited to, ongoing numbness, swelling, pain, infection, recurrence of the lesion, and possible need for further future surgical intervention. She was given paperwork to schedule procedure at her convenience with the maintenance scheduler. She will need a preoperative history and physical 1 month prior to procedure. SMS:MEDQ C: CONFIRM #: [id number] CULTURAL EQUIPMENT OPERATOR documented in this encounter Plan of Treatment Not on filedocumented as of this encounter Visit Diagnoses Diagnosis Localized superficial swelling, mass, or lump - Primary documented in this encounter Care Teams Acls Specialist Relationship Specialty Start Date End Date Md Lu, PCP - General 05/26/10 05/11/13 [place] [address] documented as of this encounter
--- OUTSIDE RECORDS SUMMARY | 2021-10-02 13:31 | XMS_ITS | Encounter Summary ---
:1985 [facility] Address [address] [place] [address] Care Team Providers Name Role Phone Md MINA Leigh Primary Care Provider Encounter Details Date Type Department Care Team Description 01/13/2009 PN Conversion Only ADVERTISING SALES ASSISTANT [address] Nan[address] Rodríguez APRN, [address] [facility] [address] SC[address] [facility] 5th Floor [address] [place], [place] [phone] (Wo rk) Social History Tobacco Use Types Packs/Day Years Used Date Smoking Tobacco: Never Assessed Sex Assigned at Date Recorded Not on file documented as of this encounter Plan of Treatment Not on filedocumented as of this encounter Procedures Procedure Name Priority Date/Time Associated Comments Diagnosis SEXUALLY TRANSMITTED Routine 01/13/2009 3:46 PM R esults for this DISEASE PROBE AUDITOR APPRAISER procedure are in the results section. ANATOMICAL PATH Routine 01/13/2009 8:23 AM Result s for this LIQUID BASED AUDITOR APPRAISER procedure are i n the results section. documented in this encounter Results Sexually Transmitted Disease Probe (01/13/2009 3:46 PM AUDITOR APPRAISER) [facility] gist Method Time Signature Sexually SEE TEXT HP CONVERSION Transmitted Disease Probe Comment: Patient: ODESSA CHE Sexually Trans Disease Probe ?Collected: ??[id number] ??[id number] Source: ENDOCERV ?Processed: ??[id number] ??[id number] Final Report ------ ?[id number] ??[id number] No Chlamydia trachomatis detected by amp lified DNA assay No Neisseria gonorrhoeae detected by amp lified DNA assay The Pro[employer]ious Amplified DNA assay is suman red by the FDA for non-medicolegal diagnostic testing in the adult population. Specimen (Source) Anatomical Collection Method Collection Time Re ceived Time Location / / Volume Laterality 01/13/2009 3:46 PM AUDITOR APPRAISER Nanette Kay APRN, ULTIMATE HOOPS SCOREBOARD OPERATOR LAB_1 Performing Organization Address City/State/ZIP Code Phon e Number HP CONVERSION Pap Smear (01/13/2009 8:23 AM AUDITOR APPRAISER) [facility] gist Method Time Signature PAP Smear SEE TEXT No normal HP CONVERSION Liquid Based range Comment: Patient: ODESSA CHE ? CERVICAL CYTOLOGY REPORT Pathology # ??[id number] ?Date Obtained: ? Date Received: CYTOLOGIC IMPRESSION: Negative for intraepithelial lesion or m alignancy. Verified 01/18/09 by: ??MB ? (electronic signature) ? ALYSA TIONAL DATA LMP: CLINICAL HIST LIQUID BASED PAP CERVICAL SPECIMEN ADEQUACY: ?? Satisfactory. ENDOCERVICAL CELLS: ??Present. Specimen (Source) Anatomical Collection Method Collection Time Re ceived Time Location / / Volume Laterality 01/13/2009 8:23 AM AUDITOR APPRAISER Nanette Kay ASSISTANT PROFESSOR OF BIOLOGY, ULTIMATE HOOPS SCOREBOARD OPERATOR LAB_1 Performing Organization Address City/State/ZIP Code Phon e Number HP CONVERSION documented in this encounter Visit Diagnoses Not on filedocumented in this encounter Care Teams Ict Programmer Relationship Specialty Start Date End Date Md Lu, PCP - General 05/26/10 05/11/13 [place], [place] [id number] documented as of this encounter
--- OUTSIDE RECORDS SUMMARY | 2021-10-02 13:31 | XMS_ITS | Encounter Summary ---
:1985 Author Organization [facility] Address [address] [place] [address] Care Team Providers Name Role Phone Md MINA Leigh Primary Care Provider Encounter Details Date Type Department Care Team Description 04/06/[address] [facility] Nanette Bravo, [address] [facility], SUPER[place] [address] [place] [address] [address] [place] [address] (Wo rk) Social History Tobacco Use Types Packs/Day Years Used Date Smoking Tobacco: Never Assessed Sex Assigned at Date Recorded Not on file documented as of this encounter Progress Notes Nanette Bravo, JUANITA, SUPERVISOR CORDUROY CUTTING - 04/06/2010 12:01 AM CST SUBJECTIVE: Simona Che 24-year-old female here for followup urgent care visit. She was seen 03/31/10 with right flank pain. Chlamydia/GC and CBC were normal. Urinalysis with large amount of leukoesterase. She was given Cipro 500 b.i.d. x7 days for possible early pyelonephritis. Urine culture was greater than 100,000 lactobacillus. Denied any dysuria, frequency, or abdominal pain. No fevers, nausea, or vomiting. She did have a cough for 2 weeks. That resolved prior to her symptoms occurring. The pain on the right lateral torso is worse when she is coughing or running. She has not seen any improvement with the right torso pain. Nonsmoker. Adverse Drug Reactions: None Medications: None. OBJECTIVE: Vital Signs : Reviewed; See Flowsheet Charting in [employer]. General: Alert, healthy-appearing female in no acute distress. Heart: RR without murmurs, rubs, or gallops. Respiratory: Normal respiratory effort. Lungs are clear with good breath sounds. Abdomen: The abdomen was flat, soft and nontender without guarding rebound or masses. Chest wall: She has tenderness along the right lateral rib. ASSESSMENT: Right-sided chest wall pain. PLAN: Her pain is pleuritic from the recent cough. She will try ibuprofen 60 mg t.i.d. with food in the next several days. She can stop the antibiotics. Follow up prn. The patient was discharged ambulatory and in stable condition. *SH~DNS~SOAP OPERATOR documented in this encounter Plan of Treatment Not on filedocumented as of this encounter Visit Diagnoses Not on filedocumented in this encounter Care Teams Mortuary Operations Manager Relationship Specialty Start Date End Date Md Leigh MD PCP - General 05/26/10 05/11/13 [place] [address] documented as of this encounter
--- OUTSIDE RECORDS SUMMARY | 2021-10-02 13:31 | XMS_ITS | Encounter Summary ---
:1985 Author Organization [facility] Address [address] [place] [address] Care Team Providers Name Role Phone Md MINA Leigh Primary Care Provider Encounter Details Date Type Department Care Team Description 06/21/2010 PN Conversion Only CONVERSION CONVERSION Jovany Melendez MD [address] [place], [place] [phone] (Wo rk) Social History Tobacco Use Types Packs/Day Years Used Date Smoking Tobacco: Never Assessed Sex Assigned at Date Recorded Not on file documented as of this encounter Plan of Treatment Not on filedocumented as of this encounter Visit Diagnoses Not on filedocumented in this encounter Care Teams Brush Cutter Relationship Specialty Start Date End Date Md Leigh MD PCP - General 05/26/10 05/11/13 [place], [place] [id number] documented as of this encounter
--- OUTSIDE RECORDS SUMMARY | 2021-10-02 13:31 | XMS_ITS | Encounter Summary ---
:1985 [facility] Address [address] [place] [address] Care Team Providers Name Role Phone Md MINA Leigh Primary Care Provider Encounter Details Date Type Department Care Team Description 07/12/2008 Office Visit [facility] [address], Care Jovany Guzman MD [address] [facility] [address] [place] [address] [place] [address] [phone] (Wo rk) Social History Tobacco Use Types Packs/Day Years Used Date Smoking Tobacco: Never Assessed Sex Assigned at Date Recorded Not on file documented as of this encounter Last Filed Vital Signs Vital Sign Reading Time Taken Comments Blood Pressure 112/66 07/12/2008 7:35 PM CDT Pulse 59 07/12/2008 7:35 PM CDT Temperature 36.9 ??C (98.4 ??F) 07/12/2008 7:35 PM CDT C: 36 .9 C Respiratory Rate 16 07/12/2008 7:35 PM CDT Oxygen Saturation - - Inhaled Oxygen Concentration - - Weight - - Height - - Body Mass Index - - documented in this encounter Progress Notes Jovany Degroot MD - 07/12/2008 12:01 AM CDT Progress Notes signed by Megan Britton MD at 07/22/08 0741 Author: Megan Britton MD Service: (none) Author Type: Physician Filed: 06/16/10 1319 Note Time: 07/12/08 0001 Status: Signed Chair Mender: Megan Britton MD (Physician) NAME: ODESSA CHE MR#: [id number] ACCT: [id number] VISIT: [id number] DICTATING CLINICIAN: Megan Britton MD CONFIRM #: [id number] LOC: 420 CLINIC PROGRESS NOTE DATE OF VISIT: 07/12/2008 SUBJECTIVE: This is a 22-year-old woman who came here with the left foot being bruised, swollen, and tender to touch since this Friday after she ran; she is a runner. Did not have any known injury. She is walking on it with not much of pain, it is more tender to touch. She has not had any history of a broken bone or sprained ankle in this side. No other injury. No other complaints. PAST MEDICAL HISTORY: Reviewed. OBJECTIVE: VS: Normal. She is slim. She is walking with no limping. There is some bluish discoloration in the lateral side of the foot and mostly around the ? part of the foot. Is not tender in the plantar area. She does have a bulge in 4th tarsometatarsal joint area, which is tender to touch. Malleolus is not tender. Tibiotalar range of motion normal. No tenderness in the plantar area, and neither in the base of the 5th metatarsal bone. I did do x-ray and interpreted as negative. ASSESSMENT: Foot sprain and possible ganglion cyst. PLAN: Comfortable shoes, may stop running now until this is completely healed. If not better by a week, see Ortho. May try some icing and ibuprofen as well. [facility]:[id number] C: 07/13/08 10:58 CONFIRM #: [id number] documented in this encounter Plan of Treatment Not on filedocumented as of this encounter Procedures Procedure Name Priority Date/Time Associated Diagnosis Comme nts XR FOOT LT 3+ VIEWS Routine 07/12/2008 8:04 PM Re sults for this CDT procedure are i n the results section. documented in this encounter Results XR Foot Lt 3+ Views (07/12/2008 8:04 PM CDT) Anatomical Region Laterality Modality Lower Extremity, Foot Other Specimen (Source) Anatomical Location Collection Method / Collectio n Time Received Time / Laterality Volume Narrative 07/12/2008 8:04 PM CDT On the oblique view, there is a vague lucency at the lateral base of the 1st distal phalanx, which does not a ppear to likely represent a fracture and which appears normal on the AP view. ??The remainder of bony structures are intact with no evide nce for fracture or dislocation. ??If there is a history of acute trauma, 7-day followup is recommended if there are persistent s ymptoms. [id number]/ddb Dictating JUVENAL HERNANDEZ RADIOLOGIST Procedure Note Juvenal Du - 05/05/2016Formattin g of this note might be different from the original. On the oblique view, there is a vague ar cency at the lateral base of the 1st distal phalanx, which does not a ppear to likely represent a fracture and which appears normal on the AP view. The remainder of bony structures are intact with no evide nce for fracture or dislocation. If there is a history of ac adelfo trauma, 7-day followup is recommended if there are persistent s ymptoms. 126351/ddb Dictating JUVENAL HERNANDEZ RADIOLOGIST Jovany Britton MD RAD GD documented in this encounter Visit Diagnoses Not on filedocumented in this encounter Care Teams Bottom Brusher Relationship Specialty Start Date End Date Md Leigh MD PCP - General 05/26/10 05/11/13 [place] [address] documented as of this encounter
--- OUTSIDE RECORDS SUMMARY | 2021-10-02 13:31 | XMS_ITS | Encounter Summary ---
:1985 [facility] Address [address] [place] [address] Care Team Providers Name Role Phone Md MINA Leigh Primary Care Provider Reason for Visit Reason Comments Other Encounter Details Date Type Department Care Team Description 06/20/2010 Telephone [facility] [address] [place], Message Other Obstetrics/Gynecolog y [address] [place] [address] Social History Tobacco Use Types Packs/Day Years Used Date Smoking Tobacco: Never Assessed Sex Assigned at Date Recorded Not on file documented as of this encounter Progress Notes [place], Message - 06/20/2010 8:33 AM CDT Ml on pt's contact number to go to [facility] lab 1/2 hr prior to appt for UA/UC. Labs faxed. Created on 20Jun2010 8:33am by ELVA DU documented in this encounter Plan of Treatment Not on filedocumented as of this encounter Visit Diagnoses Not on filedocumented in this encounter Care Teams Wallpaper Hanger Helper Relationship Specialty Start Date End Date Md Leigh MD PCP - General 05/26/10 05/11/13 [place] [address] documented as of this encounter
--- OUTSIDE RECORDS SUMMARY | 2021-10-02 13:31 | XMS_ITS | Encounter Summary ---
:1985 [facility] Address [address] [place] [address] Care Team Providers Name Role Phone Md MINA Leigh Primary Care Provider Encounter Details Date Type Department Care Team Description 01/13/2009 Office Visit [facility] [address] Nanette Kay APRN, CNP Obstetrics/Gynecolog y [address] [facility] 5th [place] [address] [phone] Social History Tobacco Use Types Packs/Day Years Used Date Smoking Tobacco: Never Assessed Sex Assigned at Date Recorded Not on file documented as of this encounter Last Filed Vital Signs Vital Sign Reading Time Taken Comments Blood Pressure 122/65 01/13/2009 1:01 PM PLANT ETIOLOGIST Pulse 63 01/13/2009 1:01 PM PLANT ETIOLOGIST Temperature - - Respiratory Rate - - Oxygen Saturation - - Inhaled Oxygen Concentration - - Weight 52 kg (114 lb 9.5 oz) 01/13/2009 1:01 PM PLANT ETIOLOGIST C: 52.0kg Height 162.6 cm (5' 4) 01/13/2009 1:01 PM PLANT ETIOLOGIST C: 162.6 cm Body Mass Index 19.67 01/13/2009 1:01 PM PLANT ETIOLOGIST documented in this encounter Progress Notes Nanette Kay APRN, DON - 01/13/2009 12:01 AM CST H&P signed by OMAR Tucker at 01/23/092032 Author: OMAR Tucker Service: (none) Author Type: Nurse Practitioner Filed: 06/16/10 1807 Note Time: 01/13/09 0001 Status: Signed Battery Tester And Repairer: OMAR Tucker (Nurse Practitioner) NAME: ODESSA CHE MR#: [id number] ACCT: [id number] VISIT: [id number] DICTATING CLINICIAN: OMAR Tucker CONFIRM #: [id number] LOC: 412 CLINIC PHYSICAL DATE OF VISIT: 01/13/2009 SUBJECTIVE: : 1985. Kimberley is a nulliparous female who presents as new patient to me, as well as to Felipa Dang for health maintenance exam. Kimberley is currently using condoms for prevention and would really like to start oral contraceptives. 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 She has had 2 sexual partners historically. She has never been screened for gonorrhea or chlamydia. She believes her last Pap smear was about 2 years ago. As far as she knows, that was a normal exam. CAREER CENTER DIRECTOR HISTORY: Onset of menses age 11. Cycles occur monthly. She does have periods for 5 to 7 days. Does note cramping. No intermenstrual bleeding. No postcoital bleeding. No dyspareunia. Last period 01/06/09. LIFESTYLE: No use of tobacco. Alcohol: 1 serving per week. No street or recreational drugs. Exercise: Running 4 to 5 times a week, usually 2 to 3 miles. Diet: Positive for appropriate food groups. Seatbelt use consistent. Does utilize sunscreen. I did discuss recent controversy around self breast exam. OBSTETRICAL HISTORY: Not applicable. PAST CAREER CENTER DIRECTOR HISTORY: Not applicable. NON-CAREER CENTER DIRECTOR SURGERIES: Extraction of wisdom teeth. PERSONAL HEALTH HISTORY: Seasonal allergies. History of menstrual migraines that respond effectively to [id number] Excedrin migraine. She does not have any aura associated with these headaches. They really resolve with treatment of the medication or with some rest. IMMUNIZATIONS: Not certain if she is due for tetanus or not. Will verify with her records. HPV vaccine options reviewed. At this time, she declines influenza vaccine. She is not in the age group of high risk for H1N1. CURRENT MEDICATIONS: None. ADR/ALLERGIES: SHE HAS NO KNOWN DRUG ALLERGIES. NO LATEX SENSITIVITY. No barriers to care. OBJECTIVE: VS: BP: 122/65. P: 63. Ht: 64 in. Wt: 114.6 lb. BMI: 19.6. Nulliparous. Age: 23. CONSTITUTIONAL: Blood pressure, height, and weight done by nursing staff. Well-developed, well-nourished female. EYES: PERRLA. Sclerae clear. MOUTH/THROAT: Gums pink, teeth in good repair. Mucous membranes intact, throat without exudate. Auriculae symmetrical. NECK: Supple, trachea midline, without cervical lymphadenopathy. Thyroid nontender and no palpable masses, symmetrical. RESPIRATORY: Lungs clear to auscultation. Respiration effortless. CARDIOVASCULAR: Heart with regular rate and without murmur. Legs without swelling and varicosities. BREASTS: Symmetrical, no dominant palpable masses. Without axillary lymphadenopathy. ABDOMEN/GI: Soft, without tenderness and no palpable masses. Without organomegaly. GENITOURINARY: External genitalia with normal hair pattern and without lesions. Urethral meatus anterior to vagina and without lesions. Urethra without scarring and nontender. Bladder without masses and nontender. BUS negative. Vagina pink without lesions, rugae present. Cervix pink. Positive eversion noted. Pap obtained with broom. Culture for gonorrhea and chlamydia. Uterus anteverted, smooth, mobile without tenderness, WNL. Adnexa without palpable masses and nontender. Anus and perineum without lesions or hemorrhoids. LYMPHATIC: Nodes in axillae, neck, and groin without masses. SKIN: Warm and dry to touch. Without lesions. PSYCHIATRIC: Oriented to time and space. Without agitation or depression. ASSESSMENT: 1. Health maintenance exam. 2. Initiation of oral contraceptives with no contraindications. 3. Pap smear. 4. STD screen, limited. PLAN: Risks, benefits, correct usage of oral contraceptives reviewed with Kimberley. She will initiate Mircette 28 day, 3 months with no additional refills. I asked that Kimberley return to clinic in her 3rd cycle to follow up regarding current OCP use and how compatible this particular medication is for her and her cycles. Gonorrhea chlamydia as well as Pap pending. Will follow up based on results. JAR:[id number] C: 01/13/09 19:07 CONFIRM #: [id number] T ETIOLOGIST documented in this encounter Plan of Treatment Not on filedocumented as of this encounter Visit Diagnoses Not on filedocumented in this encounter Care Teams Police Cadet Relationship Specialty Start Date End Date Md Lu, PCP - General 05/26/10 05/11/13 [place] [address] documented as of this encounter
--- OUTSIDE RECORDS SUMMARY | 2021-10-02 13:31 | XMS_ITS | Encounter Summary ---
:1985 [facility] Address [address] [place] [address] Care Team Providers Name Role Phone Md MINA Leigh Primary Care Provider Encounter Details Date Type Department Care Team Description 02/24/1989 PN Conversion Only SECTION WEAVER [address] [place] [address] [address] [place] [address] (Wo rk) Social History Tobacco Use Types Packs/Day Years Used Date Smoking Tobacco: Never Assessed Sex Assigned at Date Recorded Not on file documented as of this encounter Plan of Treatment Not on filedocumented as of this encounter Visit Diagnoses Not on filedocumented in this encounter Care Teams Geophysical Laboratory Chief Relationship Specialty Start Date End Date Md Leigh MD PCP - General 05/26/10 05/11/13 [place] [address] documented as of this encounter
--- OUTSIDE RECORDS SUMMARY | 2021-10-02 13:31 | XMS_ITS | Encounter Summary ---
:1985 Author Organization [facility] Address [address] [place] [address] Care Team Providers Name Role Phone Md MINA Leigh Primary Care Provider Encounter Details Date Type Department Care Team Description 03/31/2010 PN Conversion Only RESTORATIONISM CONVERSION Social History Tobacco Use Types Packs/Day Years Used Date Smoking Tobacco: Never Assessed Sex Assigned at Date Recorded Not on file documented as of this encounter Plan of Treatment Not on filedocumented as of this encounter Visit Diagnoses Not on filedocumented in this encounter Care Teams Pockets And Pieces Necktie Operator Relationship Specialty Start Date End Date Md Leigh MD PCP - General 05/26/10 05/11/13 [place] [address] documented as of this encounter
--- OUTSIDE RECORDS SUMMARY | 2021-10-02 13:31 | XMS_ITS | Encounter Summary ---
:1985 Author Organization [facility] Address [address] [place] [address] Care Team Providers Name Role Phone Unavailable Primary Care Provider Unavailable Reason for Visit Reason Comments INJURY, FINGERS Encounter Details Date Type Department Care Team Description 09/01/1997 Telephone Careline Aisha Aguilar, RN INJURY, FINGERS [address] [place], [place] [address] [phone] [place] [address] Social History Tobacco Use Types Packs/Day Years Used Date Smoking Tobacco: Never Assessed Sex Assigned at Date Recorded Not on file documented as of this encounter Nursing Notes 09/01/1997 11:59 PM CDT >> CALL RECEIVED. Contact: [phone] >> AISHA AGUILAR 09/01/1997 10:07 pm Dad calls concerning daughter. States daughter jammed right mid finger while playing softball tonight. c/o pain first IP with small bruise on side of finger. Able to move finger with pain. Denies dislocation or CMS change. Denies other injuries. Asking if he should take daughter to Emergency Room. no stat symptoms per [facility] finger/thumb injury guidelines, copyright (c) 1992 HP PMH: healthy MEDICATIONS: claratin ALLERGIES: none PLAN: Discussed that if not out of alignment and pain is managable may try home treatment. * EDEMA: + Soak in cold water for 20 minutes, out for 40 minutes. Do this at least 3 times * PAIN: + Tylenol for first 24 hours, then ASA or Ibuprofen (if no contraindications). For a blood clot under the nail and pressure is present, open paper clip and heat one end. Touch the nail over the bruised area. Repeat until a hole is through the nail. Pressure is not needed, only heat * FOLLOW-UP: if the patient is unable to use the finger normally Call clinic in morning. Call back if symptoms worsen or further questions Verbalizes understanding. Dad states will talk it over with daughter to decide if needs to be seen tonight. If decides to go to Er will go to [place] [facility]. documented in this encounter Plan of Treatment Not on filedocumented as of this encounter Visit Diagnoses Not on filedocumented in this encounter
--- OUTSIDE RECORDS SUMMARY | 2021-10-02 13:31 | XMS_ITS | Encounter Summary ---
:1985 [facility] Organization [facility] Address [address] [place] [address] Care Team Providers Name Role Phone Md MINA Leigh Primary Care Provider Encounter Details Date Type Department Care Team Description 12/25/2002 PN Conversion Only HOUSE DECORATOR [address] [place] [address] Social History Tobacco Use Types Packs/Day Years Used Date Smoking Tobacco: Never Assessed Sex Assigned at Date Recorded Not on file documented as of this encounter Plan of Treatment Not on filedocumented as of this encounter Visit Diagnoses Not on filedocumented in this encounter Care Teams Regulatory Affairs Assistant Relationship Specialty Start Date End Date Md Leigh MD PCP - General 05/26/10 05/11/13 [place], [place] [address] documented as of this encounter
--- OUTSIDE RECORDS SUMMARY | 2021-10-02 13:31 | XMS_ITS | Encounter Summary ---
:1985 [facility] Address [address] [place] [address] Care Team Providers Name Role Phone Md MINA Leigh Primary Care Provider Encounter Details Date Type Department Care Team Description 06/20/2010 PN Conversion Only WOMEN'S GARMENT FITTER [address] Rod[address]uez APRN, [address] [place] [address] [facility] 5th Floor [address] [place], [place] [phone] (Wo rk) Social History Tobacco Use Types Packs/Day Years Used Date Smoking Tobacco: Never Assessed Sex Assigned at Date Recorded Not on file documented as of this encounter Plan of Treatment Not on filedocumented as of this encounter Procedures Procedure Name Priority Date/Time Associated Comments Diagnosis SEXUALLY TRANSMITTED Routine 06/20/2010 3:38 PM R esults for this DISEASE PROBE CDT procedure are in the results section. URINE MICROSCOPIC Routine 06/20/2010 12:33 Result s for this PM CDT procedure are i n the results section. URINALYSIS Routine 06/20/2010 12:33 Results for this ROUTINE(MICRO IF POS) PM CDT proced ure are in the results section. URINE CULTURE Routine 06/20/2010 12:31 Results fo r this PM CDT procedure are i n the results section. documented in this encounter Results Sexually Transmitted Disease Probe (06/20/2010 3:38 PM CDT) [facility] Method Time Signature Sexually SEE TEXT HP CONVERSION Transmitted Disease Probe Comment: STDPR Sexually Transmitted Disease DNA Probe ? ORDERED BY: NICHOLAS KAY SOURCE: Endocervical for molecular testi ng COLLECTED: ??06/20/10 15:38 ? PLATED: ? 06/20/10 15:38 Chlamydia trachomatis DNA Probe ?FINAL ? 06/22/10 10:17 Chlamydia trachomatis NEGATIVE by DNA a mplification The amplified DNA assay is cleared by [facility] for non-medicolegal diagnostic testing in [facility] adult population. Neisseria gonorrhea DNA Probe ?FINAL ? 06/22/10 10:17 Neisseria gonorrhea NEGATIVE by DNA amp lification. The amplified DNA assay is cleared by [facility] for non-medicolegal diagnostic testing in [facility] adult population. Specimen (Source) Anatomical Collection Method Collection Time Re ceived Time Location / / Volume Laterality 06/20/2010 3:38 PM CDT Nicholas Kay APRN, HAIRMASTERS MANAGER LAB_1 Performing Organization Address City/[facility] Code Phon e Number HP CONVERSION (ABNORMAL) URINE MICROSCOPIC (06/20/2010 12:33 PM CDT) athologist Signature White Blood 0-2 0 - 4 /HPF HP CONVERSION Cells Urine Red Blood 0-2 0 - 2 /HPF HP CONVERSION Cells Urine Bacteria Urine Few (A) /HPF HP CONVERSION Specimen (Source) Anatomical Collection Method Collection Time Re ceived Time Location / / Volume Laterality 06/20/2010 12:33 PM CDT Nicholas Kay APRN, HAIRMASTERS MANAGER LAB_1 Performing Organization Address City/[facility] Code Phon e Number HP CONVERSION URINALYSIS ROUTINE(MICRO IF POS) (06/20/2010 12:33 PM CDT) [facility] gist Method Time Signature Urine Type Cln catch No normal HP CONVERSION range Turbidity Clear Clear HP CONVERSION U BILI Negative Negative HP CONVERSION Blood Urine Negative Negative HP CONVERSION Glucose, Negative Neg-30 mg/dL HP CONVERSION Qualitative U Ketones Negative Negative HP CONVERSION Leukocyte Negative Negative HP CONVERSION Esterase Urine Nitrite Urine Negative Negative HP CONVERSION pH Urine 7.0 5.0 - 8.0 HP CONVERSION Protein Urine Negative Neg - Trace HP CONVERSION mg/dL U Specific 1.010 1.005 - HP CONVERSION Rhododendron 1.030 Urobilinogen Negative Negative HP CONVERSION Urine Eu/dL Specimen (Source) Anatomical Collection Method Collection Time Re ceived Time Location / / Volume Laterality 06/20/2010 12:33 PM CDT Nicholas Kay APRN, HAIRMASTERS MANAGER LAB_1 Performing Organization Address City/[facility] Phon e Number HP CONVERSION Urine Culture (06/20/2010 12:31 PM CDT) Analysis Performed At [facility] Time Signature Urine Culture SEE TEXT HP CONVERSION Comment: CUR Culture Urine ? ORDERED BY: NICHOLAS KAY SOURCE: Urine Clean Catch ?COLLECTED: ??06/20/10 12:31 ? PLATED: ? 06/20/10 13:01 Culture Urine ?FINAL ? 06/21/10 12:11 Mixed gram positive organisms. ??<10,00 0 cfu/mL Specimen (Source) Anatomical Collection Method Collection Time Re ceived Time Location / / Volume Laterality 06/20/2010 12:31 PM CDT Nicholas Kay APRN, DON LAB_1 Performing Organization Address City/[facility] Phon e Number HP CONVERSION documented in this encounter Visit Diagnoses Not on filedocumented in this encounter Care Teams Shipping Support Relationship Specialty Start Date End Date Md Leigh MD PCP - General 05/26/10 05/11/13 [place] [address] documented as of this encounter
--- OUTSIDE RECORDS SUMMARY | 2021-10-02 13:31 | XMS_ITS | Encounter Summary ---
:1985 Author Organization [facility] Address [address] [place] [address] Care Team Providers Name Role Phone Md MINA Leigh Primary Care Provider Encounter Details Date Type Department Care Team Description 03/31/2010 Office Visit [facility] [address], Care Jovany Guzman MD [address] [facility] [address] [place] [address] [place] [address] [phone] (Wo rk) Social History Tobacco Use Types Packs/Day Years Used Date Smoking Tobacco: Never Assessed Sex Assigned at Date Recorded Not on file documented as of this encounter Last Filed Vital Signs Vital Sign Reading Time Taken Comments Blood Pressure 121/80 03/31/2010 8:19 AM BINDING BENCH WORKER Pulse 66 03/31/2010 8:19 AM BINDING BENCH WORKER Temperature 37 ??C (98.6 ??F) 03/31/2010 8:19 AM BINDING BENCH WORKER C: 37.0 C Respiratory Rate 16 03/31/2010 8:19 AM BINDING BENCH WORKER Oxygen Saturation 100% 03/31/2010 8:19 AM BINDING BENCH WORKER Inhaled Oxygen Concentration - - Weight - - Height - - Body Mass Index - - documented in this encounter Progress Notes Jovany Degroot MD - 03/31/2010 12:01 AM CST NAME: ODESSA CHE MR#: [id number] ACCT: [id number] VISIT: [id number] DICTATING CLINICIAN: Megan Britton MD CONFIRM #: [id number] LOC: 420 CLINIC PROGRESS NOTE DATE OF VISIT: 03/31/2010 : 1985 SUBJECTIVE: This is 24-year-old woman presented with right posterior rib pain for the last 2 days with no known injury. Two weeks ago she had URI symptoms, but that has resolved, but now she said if she occasionally coughs this pain gets worse. Did not have any fever or chills. She did not have any heartburn and nausea or vomiting, constipation or diarrhea. Initially she said that she does not have any urinary symptoms. However, later after some workup she did say that there is some pelvic discomfort and also some mild burning with urination. She has not had any intercourse for last few months; although, she is dating somebody. She said that she was with her boyfriend about a week ago but no intercourse. She did not have any vaginal discharge. She denies any numbness, [id number] feeling in lower or upper extremity, no upper back pain. Did not have any abdominal pain. This pain is not worse with eating or not eating. She did not take any medication for it. PAST MEDICAL HISTORY: Pretty much healthy and unremarkable. She is not a smoker. ALLERGIES: No known adverse drug reaction. EXAM: VITAL SIGNS: Normal. Afebrile. O2 sat 100% on room air. LMP was 03/08. GENERAL: She is in NAD. HEENT: Conjunctivae clear. No jaundice. No neck lymphadenopathy. Throat is clear. TMs clear. Neck is supple. LUNGS: Clear to auscultation. No rales or wheezing. HEART: Regular rhythm. No rub or murmur. ABDOMEN: Negative CVAT, but she does have some tenderness in the lateral arch of the lower ribs in the right side. No upper quadrant or lower quadrant tenderness. She does have minimal discomfort in suprapubic area. Positive bowel sounds. SKIN: No skin rash. NEURO: No sensory deficit to light touch. Initially with patient no complaint of a urinary symptom. I did do a chest x- ray and interpreted as negative. At the same time with it the UA as well, which did show some indication of UTI, and then at this point when I review this lab then she said that she did have some pelvic discomfort too, and as a result I did perform pelvic exam. : External genitalia normal. She did have some vaginal discharge. Negative CMT. No pelvic mass. Uterus normal size. She wanted to do GC/Chlamydia as well, which a cervical probe was taken and sent. Wet prep was unremarkable. Urine culture is pending. ASSESSMENT: Right flank pain and urinary tract infection, possible early pyelonephritis. PLAN: Treat this with Cipro 500 b.i.d. for 7 days pending the urine culture. Encouraged to drink plenty of fluids. Take ibuprofen 400 to 600 mg p.r.n. t.i.d. and if not better, have followup. [facility]:MEDQ C: CONFIRM #: [id number] ING BENCH WORKER documented in this encounter Plan of Treatment Not on filedocumented as of this encounter Procedures Procedure Name Priority Date/Time Associated Diagnosis Comme nts XR CHEST 2 VIEWS Routine 03/31/2010 8:59 AM Resul ts for this BINDING BENCH WORKER procedure are i n the results section. documented in this encounter Results XR Chest 2 Views (03/31/2010 8:59 AM BINDING BENCH WORKER) Anatomical Region Laterality Modality Chest, Lung Other Specimen (Source) Anatomical Location Collection Method / Collectio n Time Received Time / Laterality Volume Impressions 03/31/2010 8:59 AM BINDING BENCH WORKER : ??Normal. Dictating TAYLOR ROBINS RADIOLOGIST Narrative 03/31/2010 8:59 AM BINDING BENCH WORKER FINDINGS: ??No comparisons. ??Cardiac and mediastinal silhouettes are normal. ??Lungs are clear. ??No infiltra te, effusion or pneumothorax. Vascularity is normal. ??Bony structures intact. Procedure Note Taylor Brenner MD - 08/10/2015Forma tting of this note might be different from the original. FINDINGS: No comparisons. Cardiac and me diastinal silhouettes are normal. Lungs are clear. No infiltrate, effusion or pneumothorax. Vascularity is normal. Bony structures i ntact. IMPRESSION : Normal. Dictating TAYLOR ROBINS RADIOLOGIST Jovany Britton MD RAD GD documented in this encounter Visit Diagnoses Not on filedocumented in this encounter Care Teams Health And Safety Instructor Relationship Specialty Start Date End Date Md Lu, PCP - General 05/26/10 05/11/13 [place] [address] documented as of this encounter
--- OUTSIDE RECORDS SUMMARY | 2021-10-02 13:31 | XMS_ITS | Encounter Summary ---
:[address] [facility] Address [address] [place] [address] Care Team Providers Name Role Phone Md MINA Leigh Primary Care Provider Encounter Details Date Type Department Care Team Description 06/20/2010 Office Visit [facility] [address] Nanette Kay APRN, CNP Obstetrics/Gynecolog y [address] [facility] 5th Floor [place] [phone] Social History Tobacco Use Types Packs/Day Years Used Date Smoking Tobacco: Never Assessed Sex Assigned at Date Recorded Not on file documented as of this encounter Last Filed Vital Signs Vital Sign Reading Time Taken Comments Blood Pressure 111/65 06/20/2010 12:55 PM CDT Pulse - - Temperature - - Respiratory Rate - - Oxygen Saturation - - Inhaled Oxygen Concentration - - Weight 51.8 kg (114 lb 3.2 oz) 06/20/2010 12:55 PM C: 5 1.8kg CDT Height 162.6 cm (5' 4) 06/20/2010 12:55 PM C: 162.6cm CDT Body Mass Index 19.6 06/20/2010 12:55 PM CDT documented in this encounter Progress Notes Nanette Kay APRN, DON - 06/20/2010 12:01 AM CDT SUBJECTIVE: Kimberley is a nulliparous 24-year-old female presenting today for evaluation of urethral irritation and general vulvar discomfort. Last Austin she was with a new partner, no intercourse took place however she noticed marked irritation after foreplay. Since that time she has noticed itching after voiding but no burning, just general discomfort. Last intercourse was April, this was a different partner than the shoes with canal and different since she was last tested for gonorrhea Chlamydia 04-06-10. Previous cultures have all been negative. Present Health History: Unchanged from previous documentation 01-13-09 Current contraception: Condoms. Medications: None Reviewed and updated. See Medication List in LastWord. Adverse Drug Reactions: No known drug allergies, no latex sensitivity OBJECTIVE: Vital Signs : 64 inches tall, 114.2 pounds, blood pressure 111/65 lmp; 05-25-10 denies barriers to care 24 years old. Reviewed; See Flowsheet Charting in LastWord. Very pleasant female presents in no acute distress. Pelvic Exam: Visual exam of external genitalia reveals erythema inner aspect of the labia minora and introitus. Palpation of inguinal area free of lymphadenopathy. Position a speculum, erythema noted, cervix wiped clean and culture for gonorrhea Chlamydia obtained. Wet prep obtained. Speculum was drawn. Bimanual exam: Uterus is nontender with motion, adnexa free of masses or tenderness. Wet prep: Negative ALBA, pH 5.5, moderate monilia, moderate WBCs, moderate epithelial cells, no clue cells, no trichomonas. Urinalysis normal, results discussed with Kimberley. ASSESSMENT: #1. Monilial infection. #2. STD culture. #3. Normal urinalysis PLAN: Terazol vaginal suppositories #3. Encouraged tub soaks. Await STD culture. The patient was discharged ambulatory and in stable condition. *SH~DNS~SOAP documented in this encounter Plan of Treatment Not on filedocumented as of this encounter Visit Diagnoses Not on filedocumented in this encounter Care Teams Grass Cutter Relationship Specialty Start Date End Date Md Leigh MD PCP - General 05/26/10 05/11/13 [place] [address] documented as of this encounter
--- OUTSIDE RECORDS SUMMARY | 2021-10-02 13:31 | XMS_ITS | Encounter Summary ---
:1985 Author Organization [facility] Address [address] [place] [address] Care Team Providers Name Role Phone Md MINA Leigh Primary Care Provider Encounter Details Date Type Department Care Team Description 03/31/2010 PN Conversion Only [facility] [address], [address] [place] [address] [place], [place] [phone] (Wo rk) Social History Tobacco Use Types Packs/Day Years Used Date Smoking Tobacco: Never Assessed Sex Assigned at Date Recorded Not on file documented as of this encounter Plan of Treatment Not on filedocumented as of this encounter Procedures Procedure Name Priority Date/Time Associated Comments Diagnosis SEXUALLY TRANSMITTED Routine 03/31/2010 9:50 AM R esults for this DISEASE PROBE BOX TOE BUFFER procedure are in the results section. COMPLETE BLOOD Routine 03/31/2010 9:50 AM Results for this COUNT-W/DIFF BOX TOE BUFFER procedure are i n the results section. DIFFERENTIAL Routine 03/31/2010 9:50 AM Results f or this BOX TOE BUFFER procedure are i n the results section. WET PREP Routine 03/31/2010 9:40 AM Results f or this BOX TOE BUFFER procedure are i n the results section. URINE MICROSCOPIC Routine 03/31/2010 8:48 AM Resu lts for this BOX TOE BUFFER procedure are i n the results section. URINALYSIS Routine 03/31/2010 8:48 AM Results f or this ROUTINE(MICRO IF POS) BOX TOE BUFFER proced ure are in the results section. URINE CULTURE Routine 03/31/2010 8:48 AM Results for this BOX TOE BUFFER procedure are i n the results section. documented in this encounter Results Sexually Transmitted Disease Probe (03/31/2010 9:50 AM BOX TOE BUFFER) [facility] Method Time Signature Sexually SEE TEXT HP CONVERSION Transmitted Disease Probe Comment: STDPR Sexually Transmitted Disease DNA Probe ? ORDERED BY: PAMELA PUGH - SOURCE: Endocervical for molecular testi ng COLLECTED: ??03/31/10 09:50 ? PLATED: ? 03/31/10 09:55 Chlamydia trachomatis DNA Probe ?FINAL ? 04/02/10 13:52 Chlamydia trachomatis NEGATIVE by DNA a mplification The amplified DNA assay is cleared by [facility] for non-medicolegal diagnostic testing in [facility] adult population. Neisseria gonorrhea DNA Probe ?FINAL ? 04/02/10 13:52 Neisseria gonorrhea NEGATIVE by DNA amp lification. The amplified DNA assay is cleared by [facility] for non-medicolegal diagnostic testing in [facility] adult population. Specimen (Source) Anatomical Collection Method Collection Time Re ceived Time Location / / Volume Laterality 03/31/2010 9:50 AM BOX TOE BUFFER Pamela Britton MD LAB_1 Performing Organization Address City/State/ZIP Code Phon e Number HP CONVERSION (ABNORMAL) Differential (03/31/2010 9:50 AM BOX TOE BUFFER) [facility] Method Time Signature Absolute 2.8 2.0 - 6.8 HP CONVERSION Neutrophils k/cmm Absolute 0.9 (L) 1.0 - 4.0 HP CONVERSION Lymphocytes k/cmm Absolute 0.7 0.2 - 1.0 HP CONVERSION Monocytes k/cmm Absolute 0.2 0.0 - 0.5 HP CONVERSION Eosinophils k/cmm Absolute 0.1 0.0 - 0.2 HP CONVERSION Basophils k/cmm Specimen (Source) Anatomical Collection Method Collection Time Re ceived Time Location / / Volume Laterality 03/31/2010 9:50 AM BOX TOE BUFFER Pamela Britton MD LAB_1 Performing Organization Address [facility] Code Phon e Number HP CONVERSION (ABNORMAL) Hemogram/Plts/Diff (03/31/2010 9:50 AM BOX TOE BUFFER) Patholo gist Method Time Signature White Blood Cell 4.7 3.8 - HP CONVERSION Count 11.0 k/cmm Red Blood Cell 4.66 3.70 - HP CONVERSION Count 5.20 m/cmm Hemoglobin 11.0 (L) 11.8 - HP CONVERSION 15.5 g/dL Hematocrit 34.8 (L) 35.0 - HP CONVERSION 46.0 % Mean Corpuscular 74.7 (L) 80.0 - HP CONVERSION Volume 100.0 fL RDW 14.3 11.0 - HP CONVERSION 15.0 % Platelet Count 315 140 - 450 HP CONVERSION k/cmm Specimen (Source) Anatomical Collection Method Collection Time Re ceived Time Location / / Volume Laterality 03/31/2010 9:50 AM BOX TOE BUFFER Pamela Britton MD LAB_1 Performing Organization Address [facility] Phon e Number HP CONVERSION Wet Prep (03/31/2010 9:40 AM BOX TOE BUFFER) P athologist Signature Wet Prep SEE TEXT HP CONVERSION Comment: WETPR Wet Prep ? ORDERED BY: PAMELA PUGH - SOURCE: Cervix/Vaginal ? COLLECTED: ??03/31/10 09:40 ? PLATED: ? 03/31/10 09:51 Wet Prep ? FINAL ? 03/31/10 10:01 Many White Blood Cells; Many epithelial cells; No yeast; No Trichomonas; No clue cells. Specimen (Source) Anatomical Collection Method Collection Time Re ceived Time Location / / Volume Laterality 03/31/2010 9:40 AM BOX TOE BUFFER Pamela Britton MD LAB_1 Performing Organization Address [facility] Phon e Number HP CONVERSION Urine Culture (03/31/2010 8:48 AM BOX TOE BUFFER) Analysis Performed At Patho logist Time Signature Urine Culture SEE TEXT HP CONVERSION Comment: CUR Culture Urine ? ORDERED BY: PAMELA PUGH - SOURCE: Urine Clean Catch ?COLLECTED: ??03/31/10 08:48 ? PLATED: ? 03/31/10 09:52 Culture Urine ?FINAL ? 04/01/10 12:32 ? >100,000 cfu/ml Lactobacillus spe cies Specimen (Source) Anatomical Collection Method Collection Time Re ceived Time Location / / Volume Laterality 03/31/2010 8:48 AM BOX TOE BUFFER Pamela Britton MD LAB_1 Performing Organization Address [facility] Phon e Number HP CONVERSION (ABNORMAL) URINE MICROSCOPIC (03/31/2010 8:48 AM BOX TOE BUFFER) [facility] Method Time Signature White Blood >100 (A) 0 - 4 /HPF HP CONVERSION Cells Urine Red Blood Cells 3-4 (A) 0 - 2 /HPF HP CONVERSION Urine Bacteria Urine Many (A) /HPF HP CONVERSION Epithelial Moderate /HPF HP CONVERSION Cells Specimen (Source) Anatomical Collection Method Collection Time Re ceived Time Location / / Volume Laterality 03/31/2010 8:48 AM BOX TOE BUFFER Pamela Britton MD LAB_1 Performing Organization [address] [facility] Phon e Number HP CONVERSION (ABNORMAL) URINALYSIS ROUTINE(MICRO IF POS) (03/31/2010 8:48 AM BOX TOE BUFFER) [facility] gist Method Time Signature Urine Type Cln catch No normal HP CONVERSION range Turbidity Hazy (A) Clear HP CONVERSION U BILI Negative Negative HP CONVERSION Blood Urine Trace (A) Negative HP CONVERSION Glucose, Negative Neg-30 mg/dL HP CONVERSION Qualitative U Ketones Negative Negative HP CONVERSION Leukocyte Large (A) Negative HP CONVERSION Esterase Urine Nitrite Urine Negative Negative HP CONVERSION pH Urine 6.0 5.0 - 8.0 HP CONVERSION Protein Urine Negative Neg - Trace HP CONVERSION mg/dL U Specific <=1.005 1.005 - HP CONVERSION [place] 1.030 Urobilinogen Negative Negative HP CONVERSION Urine Eu/dL Specimen (Source) Anatomical Collection Method Collection Time Re ceived Time Location / / Volume Laterality 03/31/2010 8:48 AM BOX TOE BUFFER Pamela Britton MD LAB_1 Performing Organization Address [facility] Phon e Number HP CONVERSION documented in this encounter Visit Diagnoses Not on filedocumented in this encounter Care Teams Chief Inspector Relationship Specialty Start Date End Date Md Leigh MD PCP - General 05/26/10 05/11/13 [place] [address] documented as of this encounter
== END 2021-09-07 13:55 | disposition home or self-care (01) ==
LOC: US 13:54
PROVIDERS: PCP Nurse Practitioner Family; Visit Provider Registered Nurse
DX: O98.513 Other viral diseases complicating pregnancy, third trimester (principal); U07.1 COVID-19; Z3A.33 33 weeks gestation of pregnancy
CPT/HCPCS: 76816

== ENCOUNTER 2021-10-05 14:13 | Outpatient (CLI) | payer BC, SELFPAY ==
--- NOTE | 2021-10-05 14:00 | CRLHL7_ITS ---
For Patients: As a result of the Century Cures Act, medical imaging exams and procedure reports are released immediately into your electronic medical record. You may view this report before your referring provider. If you have questions, please contact your health care provider. INDICATION: Third trimester scan, evaluate growth. 2 VESSEL CORD COMPARISON: 09/07/2021 TECHNIQUE: Real time reid scale imaging of the fetus was performed. FINDINGS: Sonographic imaging demonstrates a single living intrauterine gestation. Fetus demonstrates a regular cardiac rate of 138 beats per minute. Fetus has a vertex position. The placenta lies posteriorly. Amniotic fluid volume appears normal and there is a single deepest vertical pocket: 4.0 cm. The estimated weight is 3466gm which lies at the 94th %. On the prior OB ultrasound exam dated 09/07/2021 the estimated weight was at the 93rd%. BPD 62nd percentile. HC 76th percentile. AC greater than 97th percentile. FL 41st percentile. The HC/AC ratio measures 0.95 range (0.90-1.05). Normal gross body movements and tone. Absent respiratory activity. IMPRESSION: Biophysical profile 08/01. Sonographic gestational age 37 weeks 5 days and sonographic due date 10/21/2021. Sonographic age 9 days ahead of the clinical age. Estimated weight 94th percentile. Abdominal circumference greater than 97th percentile. Dictated by Twin Sykes MD @ 10/05/2021 3:34:47 PM (Electronically Signed)
--- OUTSIDE RECORDS SUMMARY | 2021-10-05 14:17 | XMS_ITS | Encounter Summary ---
:1985 Author Organization [facility] Address [address] [place] [address] Care Team Providers Name Role Phone Md MINA Leigh Primary Care Provider Reason for Visit Reason Comments EXCESSIVE SWEATING Encounter Details Date Type Department Care Team Description 01/23/2011 Office Visit [facility] Nicholas Weaver, Hyperhidrosis; [address] Milton Robb APRN, CNP [place], [place] [phone] [place] [address] [address] [address] (Wo rk) Social History Tobacco Use Types Packs/Day Years Used Date Smoking Tobacco: Never Assessed Sex Assigned at Date Recorded Not on file documented as of this encounter Last Filed Vital Signs Vital Sign Reading Time Taken Comments Blood Pressure 92/50 01/23/2011 3:22 PM SALES AND MARKETING COORDINATOR Pulse 68 01/23/2011 3:22 PM SALES AND MARKETING COORDINATOR Temperature 36.7 ??C (98.1 ??F) 01/23/2011 3:22 PM SALES AND MARKETING COORDINATOR Respiratory Rate - - Oxygen Saturation - - Inhaled Oxygen Concentration - - Weight 50.8 kg (112 lb) 01/23/2011 3:22 PM SALES AND MARKETING COORDINATOR Height 165.1 cm (5' 5) 01/23/2011 3:22 PM SALES AND MARKETING COORDINATOR Body Mass Index 18.64 01/23/2011 3:22 PM SALES AND MARKETING COORDINATOR documented in this encounter Patient Instructions Patient InstructionsSuNicholas rincon APRN, CEO ZIFF DAVIS - 01/23/2011 3:35 PM SALES AND MARKETING COORDINATOR Lab letter will arrive in 1-2 weeks. Aluminum Chloride as needed for sweating. S AND MARKETING COORDINATOR documented in this encounter Progress Notes Nicholas [place] APRN, CNP - 01/23/2011 4:30 PM SALES AND MARKETING COORDINATOR Addended by: NICHOLAS WEAVER on: 01/23/2011 Modules accepted: Orders Nicholas [place] APRN, CNP - 01/23/2011 3:59 PM CST SUBJECTIVE: Chief Complaint Patient presents with ??? Excessive Sweating increased body odor Simona Che is a 25 y.o. female here for excessive sweating and body odor. Occuring for past 2 weeks. No night sweats and it seems to get worse at night. She had bad body odor and has tried a couple different deodorants. Mostly involves her axilla. No weight loss, fatigue, joint pain, cough, fever, bladder symptoms or sore throat. No excessive exercise. Her mom had benign thyroid nodule and had it removed recently. Reviewed that she has history of anemia when had blood drawn at urgent care. Denies heavy menses. She is not sexually active currently. Nonsmoker. Current outpatient prescriptions Medication Sig ??? op medications reviewed ??? patient not taking any chronic medication Allergies: Review of patient's allergies indicates no known allergies. OBJECTIVE: BP 92/50 Pulse 68 Temp(Src) 98 ??F (36.7 ??C) (Oral) Ht 5' 5 (1.651 m) Wt 112 lb (50.803 kg) BMI 18.64 kg/m2 General: Alert in no acute distress. Head: Normocephalic. Eyes: PERRLA, full EOM. External exams normal. Ears: Normal pinnae, canals, andTM's. Nose: Patent, without deformity. Throat: Moist mucous membranes without lesions, erythema, or exudate. Neck: Supple, without masses, lymphadenopathy or tenderness. Heart: RR without murmurs, rubs, or gallops. Respiratory: Normal respiratory effort. Lungs are clear with good breath sounds. Abdomen: The abdomen was flat, soft and nontender without guarding rebound or masses. ASSESSMENT: Hyperhidorisis Anemia PLAN: CBC, iron/TIBC, ferritin, TSH pending. Letter will follow. Discussed possible need for iron replacement. Aluminum Chloride prn for sweating. Follow up if not improving. documented in this encounter Plan of Treatment Not on filedocumented as of this encounter Visit Diagnoses Diagnosis Hyperhidrosis Primary focal hyperhidrosis Anemia Anemia, unspecified documented in this encounter Care Teams Hair Spinner Relationship Specialty Start Date End Date Md Leigh MD PCP - General 05/26/10 05/11/13 [place] [address] documented as of this encounter
== END 2021-10-05 14:14 | disposition home or self-care (01) ==
LOC: US 14:13
PROVIDERS: PCP Nurse Practitioner Family; Visit Provider Obstetrics & Gynecology
DX: O09.893 Supervision of other high risk pregnancies, third trimester (principal); Z3A.37 37 weeks gestation of pregnancy
CPT/HCPCS: 76816; 76819

== ENCOUNTER 2021-10-05 15:23 | Outpatient (CLI) | payer BC, SELFPAY ==
--- OUTSIDE RECORDS SUMMARY | 2021-10-05 15:25 | XMS_ITS | Encounter Summary ---
:1985 Author Organization [facility] Address [address] [place] [address] Care Team Providers Name Role Phone Jie Mckeon DO Primary Care Provider Reason for Visit Reason Onset Date Comments Refill 06/01/2020 SUMAtriptan (IMITREX ) 100 MG tablet Encounter Details Date Type Department Care Team Description 06/01/2020 Refill [facility] [address] Jie Mckeon, Re fill (SUMAtriptan Family Medicine DO (IMITREX) 100 MG [address] [place] [id number] (Wo rk) Social History Tobacco Use Types [...] Villalpando RN 06/02/2020, 9:40 AM Interface, Out AB Tasty Prov Query - 06/01/2020 10:42 AM CDT [...] MCKEON) Next scheduled visit: None Powered by [employer], Reference: [id number], 06/01/2020 10:42:02 AM CDT, Pool: [id number] FM REFILL ([id number]) documented in this encounter Plan of Treatment Not on filedocumented as of this encounter Visit Diagnoses Not on filedocumented in this encounter Care Teams Project Drilling Engineer Relationship Specialty Start Date End Date Jie Mckeon, DO PCP - General Family Practice 04/05/16 [address] [place] [address] documented as of this encounter
--- OUTSIDE RECORDS SUMMARY | 2021-10-05 15:25 | XMS_ITS | Encounter Summary ---
:1985 Author Organization [facility] Address [address] [place] [address] Care Team Providers Name Role Phone Jie Mckeon DO Primary Care Provider Reason for Visit Reason Comments Refill SUMAtriptan (IMITREX) 100 MG tablet [Pharmacy Med Name: SUMATRIPTAN SUCC 100 MG TABLET] Encounter Details Date Type Department Care Team Description 02/12/2018 Refill [facility] 3850 Jie Mckeon, Re fill (SUMAtriptan Family Medicine DO (IMITREX) 100 MG tablet [address] [place] [address] [Ph armacy Med Name: Blvd. BL[address] SUMATRIPTAN SUCC 100 MG [place], [place] TA BLET]) [id number] (Wo rk) Social History Tobacco Use Types [...] Time Provider Department Center 02/23/2018 9:00 AM Jie Mckeon, DO P3850 FM PN [id number] Do you have enough medication to last until your appointment? Yes Patient advised refill will be addressed at upcoming visit. Frontline Action: Remove pended medication and Sign Visit or if unable, Route as low priority to Refill Wizard Admin-PN Pool ([id number]) Sheree Tee - 02/18/2018 8:54 AM CST [...] encounter high priority to Refill Pool (P [id number]) Marga Mcdermott RN - 02/13/2018 5:46 PM CST Further Assistance Needed on Refill from Cane Feeder Patient is overdue for Office visit. -> [...] HRS IF NEEDED. MAX 2 TABS/24HRS, 9DAYS/MONTH E SUPERVISOR Interface, Out Surescripts Prov Query - 02/12/2018 [...] 74 mm Hg on 04/09/2017 Powered by Evomail, Reference: [id number], 02/12/2018 9:37:46 AM SPINE SUPERVISOR, Pool: [id number] FM REFILL ([id number]) E SUPERVISOR documented in this encounter Plan of Treatment Not on filedocumented as of this encounter Visit Diagnoses Not on filedocumented in this encounter Care Teams Composition Tile Layer Relationship Specialty Start Date End Date Jie Mckeon DO PCP - General Family Practice 04/05/16 [address] [place] [address] documented as of this encounter
--- OUTSIDE RECORDS SUMMARY | 2021-10-05 15:25 | XMS_ITS | Encounter Summary ---
:1985 Author Organization [facility] Address [address] [place] [address] Care Team Providers Name Role Phone Sofi Jie Shweta ZARAGOZA Primary Care Provider Reason for Visit Reason Comments Refill Encounter Details Date Type Department Care Team Description 03/08/2018 [facility]ill [facility] Nicholas Kay A PRN, CURTAIN CLEANER Refill Obstetrics/Gynecolog y [address] [facility] 5th [place] [address] [place], [place] [address] (Wo rk) Social History Tobacco Use Types [...] Department Center 04/22/2018 7:30 AM Nicholas Kay, FURNACE ATTENDANT, CURTAIN CLEANER P6500 OB PN 4140 ATIENT PROGRAM COORDINATOR documented in this encounter Plan of Treatment Not on filedocumented as of this encounter Visit Diagnoses Not on filedocumented in this encounter Care Teams Rn Bariatric Relationship Specialty Start Date End Date Jie Farah DO PCP - General Family Practice 04/05/16 [address] [place] [address] documented as of this encounter
--- OUTSIDE RECORDS SUMMARY | 2021-10-05 15:25 | XMS_ITS | Clinical Summary ---
:1985 Author Organization [facility] Address [address] [place] [address] Care Team Providers Name Role Phone Jie [...] for each transition of care or referral. [facility] Allergies No known active allergies Medications Medication [...] Comments Blood Pressure 97/57 02/15/2019 9:07 AM INSTRUCTIONAL COACH Pulse 61 02/15/2019 9:07 AM INSTRUCTIONAL COACH Temperature 36.8 ??C (98.3 ??F) 04/07/2017 5:36 PM INSTRUCTIONAL COACH Respiratory Rate 16 04/07/2017 5:36 PM INSTRUCTIONAL COACH Oxygen Saturation 100% 09/25/2014 9:05 AM CDT Inhaled Oxygen Concentration - - Weight 54.7 kg (120 lb 9.6 oz) 02/15/2019 9:07 AM INSTRUCTIONAL COACH Height 168.3 cm (5' 6.25) 04/09/2017 3:19 PM INSTRUCTIONAL COACH Body Mass Index 19.32 04/09/2017 3:19 PM INSTRUCTIONAL COACH Plan of Treatment Health Maintenance Due Date [...] Dates Phone Addre ss Type Group [facility] [id number] 2016-Present [address] [address] [place] [address] (Work) Simona Che Personal/Famil Self 1985 [address]) [address] [phone] APARTMENT 20 6 (Work) [place] [address] Bandar Che Personal/Famil Self 04/23/1960 [address] (Home) [place] [phone] (Work) Advance Directives Latest Code Status on File Code Status Date Activated Date Inactivated Comments Full Code 05/28/2013 11:30 AM 05/28/2013 2:36 PM Care Teams Service Station Equipment Mechanic Relationship Specialty Start Date End Date Jie Farah DO PCP - General Family Practice 04/05/[address] [place] [address]
--- OUTSIDE RECORDS SUMMARY | 2021-10-05 15:25 | XMS_ITS | Encounter Summary ---
:1985 Author Organization [facility] Address [address] [address] Care Team Providers Name Role Phone MireilleJie jones Shweta ZARAGOZA Primary Care Provider Reason for Visit Reason Comments Refill [place] Encounter Details Date Type Department Care Team Description 02/12/2017 [facility]ill [facility] Nicholas Kay A PRN, NURSE COORDINATOR Refill ([place]) Obstetrics/Gynecolog y [address] [facility] 5th [place] [address] [place], [place] [id number] (Wo rk) Social History Tobacco Use Types [...] Provider: NICHOLAS KAY Ordering User: RUIZ RENEE F WORKER documented in this encounter Plan of Treatment Not on filedocumented as of this encounter Visit Diagnoses Not on filedocumented in this encounter Care Teams Talent Development Coordinator Relationship Specialty Start Date End Date Jie Farah DO PCP - General Family Practice 04/05/16 [address] [place] [address] documented as of this encounter
--- OUTSIDE RECORDS SUMMARY | 2021-10-05 15:25 | XMS_ITS | Encounter Summary ---
:1985 Author Organization [facility] Address [address] [place] [address] Care Team Providers Name Role Phone Jie Farah DO Primary Care Provider Reason for Visit Reason Comments Sore Throat Encounter Details Date Type Department Care Team Description 05/18/2019 Nurse Triage Spangler Nurse Line Jie Farah, DO Sore Throat [address] [facility] [address] [place], [place] [address] [place] [address] [phone] Social History Tobacco Use Types Packs/Day Years [...] [facility] She also returned from [facility] on 05/07/19. Problem list reviewed as related to this call. Reason for Disposition ? ? [1] Sore throat is the only symptom AND [2] sore throat present < 48 hours Protocols used: SORE [id number] documented in this encounter Plan of Treatment Not on filedocumented as of this encounter Visit Diagnoses Not on filedocumented in this encounter Care Teams Pourer Crane Ladle Relationship Specialty Start Date End Date Jie Farah DO PCP - General Family Practice 04/05/16 [address] [place] [address] documented as of this encounter
--- OUTSIDE RECORDS SUMMARY | 2021-10-05 15:25 | XMS_ITS | Encounter Summary ---
:1985 Author Organization [employer] Address [address] [place] [address] Care Team Providers Name Role Phone Jie Mckeon DO Primary Care Provider Reason for Visit Reason Comments Refill SUMAtriptan (IMITREX) 100 MG tablet [Pharmacy Med Name: SUMATRIPTAN SUCC 100 MG TABLET] Encounter Details Date Type Department Care Team Description 07/12/2017 Refill [facility] 3850 Jie Mckeon, Re fill (SUMAtriptan Family Medicine DO (IMITREX) 100 MG tablet [address] [place] [address] [Ph armacy Med Name: Blvd. [address] SUMATRIPTAN SUCC 100 MG [place], [place] TA [place]LET]) [id number] (Wo rk) Social History Tobacco Use Types [...] 74 mm Hg on 04/09/2017 Powered by mobintent, Reference: [id number], 07/12/2017 6:02:29 PM CDT, Pool: [id number] FM REFILL ([id number]) documented in this encounter Plan of Treatment Not on filedocumented as of this encounter Visit Diagnoses Not on filedocumented in this encounter Care Teams Media Production Manager Relationship Specialty Start Date End Date Jie Mckeon DO PCP - General Family Practice 04/05/16 [address] [place] [address] documented as of this encounter
--- OUTSIDE RECORDS SUMMARY | 2021-10-05 15:25 | XMS_ITS | Encounter Summary ---
:1985 Author Organization [facility] Address [address] [place] [address] Care Team Providers Name Role Phone Jie Mckeon DO Primary Care Provider Reason for Visit Reason Comments Refill SUMAtriptan (IMITREX) 100 MG tablet [Pharmacy Med Name: SUMATRIPTAN SUCC 100 MG TABLET] Encounter Details Date Type Department Care Team Description 11/03/2018 Refill [facility] 3850 Jie Mckeon, Re fill (SUMAtriptan Family Medicine DO (IMITREX) 100 MG tablet [address] [place] [Ph armacy Med Name: Blvd. BL[address] SUMATRIPTAN SUCC 100 MG [place], [place] TA BLET]) [id number] (Wo rk) Social History Tobacco Use Types [...] documented as of this encounter Nursing Notes Karen Diallo RN - 11/05/2018 3:52 PM CDT Renewed medication per medication refill protocol. Requested Prescriptions Signed Prescriptions Disp Refills ??? SUMAtriptan (IMITREX) 100 MG tablet 18 Tablet 2 Si TAB NEEDED FOR MIGRAINE. MAY REPEAT AFTER 2 HRS IF NEEDED. MAX 2 TABS/24 HRS. MAX 9 DAYS/MONTH Authorizing Provider: JIE MCKEON Ordering User: KAREN DIALLO Interface, Out Surescripts Prov Query - 11/03/2018 8:37 AM CDT SUMAtriptan (IMITREX) 100 MG tablet [Pharmacy Med Name: SUMATRIPTAN SUCC 100 MG TABLET] Medication started: 04/08/2015 Last ordered by JIE MCKEON: 02/23/2018 (253 days ago) QTY: 54, Refills: 0, Sig: take 1 tablet by mouth as needed for migraine. may repeat after 2 hours if needed. max 2 tabs/24 hours. max 9 days/month (changed) -> This medication may not have been authorized by the requested provider. -> The requested sig has changed from the last order. -> Refill x 6 months (until due for an office visit) -> Calculate quantity and refills manually. They could not be estimated due to missing or unreadable information. Last qualifying visit: 02/23/2018 (with JIE MCKEON) Next scheduled visit: None SBP: 108 mm Hg on 02/23/2018 DBP: 75 mm Hg on 02/23/2018 Powered by [employer], Reference: [id number], 11/03/2018 8:37:25 AM CDT, Pool: [id number] FM REFILL ([id number]) documented in this encounter Plan of Treatment Not on filedocumented as of this encounter Visit Diagnoses Not on filedocumented in this encounter Care Teams Valve Repairer Relationship Specialty Start Date End Date Jie Mckeon DO PCP - General Family Practice 04/05/16 [address] [place], [place] [address] documented as of this encounter
--- OUTSIDE RECORDS SUMMARY | 2021-10-05 15:25 | XMS_ITS | Encounter Summary ---
:1985 Author Organization [facility] Address [address] [place] [address] Care Team Providers Name Role Phone Jie Mckeon DO Primary Care Provider Reason for Visit Reason Comments Refill SUMAtriptan (IMITREX) 100 MG tablet Encounter Details Date Type Department Care Team Description 01/27/2020 Refill [facility] 3850 Jie Mckeon, Re fill (SUMAtriptan Family Medicine DO (IMITREX) 100 MG [address] [place] [address] tab let) [place] [phone] (Wo rk) Social History Tobacco Use Types [...] Tablet by mouth as needed for Migraine. OR TRUCK GARAGE MECHANIC Interface, Out Indian Energy Prov Query - 01/27/2020 12:54 PM CST [...] MCKEON) Next scheduled visit: None Powered by Delight, Reference: [id number], 01/27/2020 12:54:06 PM BUS OR TRUCK GARAGE MECHANIC, Pool: PN REFILL WIZARD ADMIN ([id number]) OR TRUCK GARAGE MECHANIC Adan Archibald - 01/27/2020 12:53 PM CST [...] refills) Please route to: Refill Pool (P [id number]) Levy FP Pool [place] [facility] ONLY (P [id number]) [facility] Dr[facility] [place] ONLY (P [phone]) OR TRUCK GARAGE MECHANIC documented in this encounter Plan of Treatment Not on filedocumented as of this encounter Visit Diagnoses Not on filedocumented in this encounter Care Teams Pinion Staker Relationship Specialty Start Date End Date Jie Mckeon DO PCP - General Family Practice 04/05/16 [address] [place] [address] documented as of this encounter
--- OUTSIDE RECORDS SUMMARY | 2021-10-05 15:25 | XMS_ITS | Encounter Summary ---
:1985 Author Organization [facility] Address [address] [place] [address] Care Team Providers Name Role Phone Jie Mckeon DO Primary Care Provider Reason for Visit Reason Onset Date Comments Refill 07/14/2019 SUMAtriptan (IMITREX ) 100 MG tablet Encounter Details Date Type Department Care Team Description 07/14/2019 Refill [facility] 3850 Jie Mckeon, Re fill (SUMAtriptan Family Medicine DO (IMITREX) 100 MG [address] [place] [address] tab let) [place] [phone] (Wo rk) Social History Tobacco Use Types [...] documented as of this encounter Nursing Notes Hilary Daly RN - 07/15/2019 8:30 AM CDT Renewed medication per medication refill protocol. Requested Prescriptions Pending Prescriptions Disp Refills SUMAtriptan (IMITREX) 100 MG tablet 18 Tablet 2 Sig: Take 1 Tablet by mouth as needed for Migraine. Interface, Out CounterStorm Query - 07/14/2019 9:55 AM CDT SUMAtriptan (IMITREX) 100 MG tablet Medication started: 04/08/2015 Last ordered by JIE MCKEON: 02/15/2019 (149 days ago) QTY: 18, Refills: 2, Sig: take 1 tablet by mouth as needed for migraine. (unchanged) -> Refill x 9 months (until due for an office visit) -> Calculate the quantity and number of refills manually. Last qualifying visit: 02/15/2019 (with JIE MCKEON) Next scheduled visit: None SBP: 97 mm Hg on 02/15/2019 DBP: 57 mm Hg on 02/15/2019 Powered by [employer], Reference: [id number], 07/14/2019 9:55:23 AM CDT, Pool: [id number] FM REFILL ([id number]) documented in this encounter Plan of Treatment Not on filedocumented as of this encounter Visit Diagnoses Not on filedocumented in this encounter Care Teams Electric Deicer Inspector Relationship Specialty Start Date End Date Jie Mckeon, PCP - General Family Practice 04/05/16 [address] [place] [address] documented as of this encounter
--- OUTSIDE RECORDS SUMMARY | 2021-10-05 15:25 | XMS_ITS | Encounter Summary ---
:1985 Author Organization [facility] Address [address] [place] [address] Care Team Providers Name Role Phone Jie Farah DO Primary Care Provider Reason for Visit Reason Onset Date Comments Refill 07/15/2017 Encounter Details Date Type Department Care Team Description 07/15/2017 Refill [facility] 3850 Family Jie Roper DO Refill Medicine [address] [place] [address] [place], [place] [address] [phone] Social History Tobacco Use Types Packs/Day Years [...] documented as of this encounter Nursing Notes Bhavani Hoyos, ERIC - 07/15/2017 11:18 AM CDT From: Simona Che To: Jie Farah DO Sent: 07/15/2017 6:45 AM CDT Subject: Medication Renewal Request Original authorizing provider: DO Simona Espinoza would like a refill of the following medications: SUMAtriptan (IMITREX) 100 MG tablet [Jie Farah DO] Preferred pharmacy: [facility] [address] [facility] [place] [address] [facility] Comment: Good Morning, Would it be possible to get a renewal of this prescription? It has been really beneficial in helping with headaches. I apologize if this was a duplication of the pharmacy. Thank you. Kimberley documented in this encounter Plan of Treatment Not on filedocumented as of this encounter Visit Diagnoses Not on filedocumented in this encounter Care Teams Surplus Property Disposal Agent Relationship Specialty Start Date End Date Jie Farah DO PCP - General Family Practice 04/05/16 [address] [place] [address] documented as of this encounter
--- OUTSIDE RECORDS SUMMARY | 2021-10-05 15:25 | XMS_ITS | Encounter Summary ---
:1985 Author Organization [facility] Address [address] [place] [address] Care Team Providers Name Role Phone Jie Farah DO Primary Care Provider Reason for Visit Reason Onset Date Comments Refill 02/18/2018 Encounter Details Date Type Department Care Team Description 02/18/2018 Refill [facility] 3850 Family Jie Roper, Refill Medicine [address] [place] [address] [place], [place] [address] [phone] Social History Tobacco Use Types Packs/Day Years [...] as of this encounter Nursing Notes Bhavani Hoyos RN - 02/18/2018 9:11 AM CST See Refill Encounter dated 02/12/18 GER TALENT MANAGEMENT documented in this encounter Plan of Treatment Not on filedocumented as of this encounter Visit Diagnoses Not on filedocumented in this encounter Care Teams Exercise Specialist Relationship Specialty Start Date End Date Jie Farah DO PCP - General Family Practice 04/05/16 [address] [place] [address] documented as of this encounter
--- OUTSIDE RECORDS SUMMARY | 2021-10-05 15:25 | XMS_ITS | Encounter Summary ---
:1985 Author Organization [facility] Address [address] [place] [address] Care Team Providers Name Role Phone Jie Farah DO Primary Care Provider Encounter Details Date Type Department Care Team Description 06/05/2020 Immunization [facility] COVMO Encounter for Vaccine Program administration of vaccine [address] (Primary Dx) [place], [place] [address] Social History Tobacco Use Types [...] Primary documented in this encounter Care Teams Return Agent Relationship Specialty Start Date End Date Jie Farah DO PCP - General Family Practice 04/05/16 [address] [place] [address] documented as of this encounter
--- OUTSIDE RECORDS SUMMARY | 2021-10-05 15:25 | XMS_ITS | Encounter Summary ---
:1985 Author Organization [facility] Address [address] [place] [address] Care Team Providers Name Role Phone Jie Farah DO Primary Care Provider Reason for Visit Reason Comments MEDICATION CHECK Refill Encounter Details Date Type Department Care Team Description 02/15/2019 Office Visit [facility] 3850 Jie Farah, [place] graine without aura Family Medicine DO and without status [address] rainosus, not [address] intractable (Primary [place], [place] Dx ) [phone] (Wo rk) Social History Tobacco Use Types [...] Comments Blood Pressure 97/57 02/15/2019 9:07 AM FINE ARTS INSTRUCTOR Pulse 61 02/15/2019 9:07 AM FINE ARTS INSTRUCTOR Temperature - - Respiratory Rate - - Oxygen Saturation - - Inhaled Oxygen Concentration - - Weight 54.7 kg (120 lb 9.6 oz) 02/15/2019 9:07 AM FINE ARTS INSTRUCTOR Height - - Body Mass Index 19.32 04/09/2017 3:19 PM FINE ARTS INSTRUCTOR documented in this encounter Progress Notes Jie [...] or worsen referral to the headache Clinic. ARTS INSTRUCTOR documented in this encounter Plan of Treatment Not on filedocumented as of this encounter Visit Diagnoses Diagnosis Migraine without aura and without status migrainosus, not intractable - Primary Migraine without aura, without mention o f intractable migraine without mention of status migrainosus documented in this encounter Care Teams Snaker Tractor Driver Relationship Specialty Start Date End Date Jie Farah DO PCP - General Family Practice 04/05/16 [address] [place] [address] documented as of this encounter
--- OUTSIDE RECORDS SUMMARY | 2021-10-05 15:25 | XMS_ITS | Encounter Summary ---
:1985 Author Organization [facility] Address [address] [place] [address] Care Team Providers Name Role Phone Jie Farah DO Primary Care Provider Encounter Details Date Type Department Care Team Description 05/06/2020 Immunization [place] COVAL Encounter for Vaccine Program administration of vaccine [address] (Primary Dx) [place], [place] [address] Social History Tobacco Use Types [...] Primary documented in this encounter Care Teams Geospatial Technician Relationship Specialty Start Date End Date Jie Farah DO PCP - General Family Practice 04/05/16 [address] [place] [address] documented as of this encounter
--- OUTSIDE RECORDS SUMMARY | 2021-10-05 15:25 | XMS_ITS | Encounter Summary ---
:1985 Author Organization [email or web address] Address [address] [place] [address] Care Team Providers Name Role Phone Jie Mckeon DO Primary Care Provider Reason for Visit Reason Onset Date Comments Refill 03/29/2020 SUMAtriptan (IMITREX ) 100 MG tablet Encounter Details Date Type Department Care Team Description 03/29/2020 Refill [facility] 3850 Jie Mckeon, Re fill (SUMAtriptan Family Medicine DO (IMITREX) 100 MG [address] [place] [address] tab let) [place] [address] [phone] (Wo rk) Social History Tobacco Use Types [...] encounter Nursing Notes Keven Leblanc, RN - 03/29/2020 12:32 PM CST Renewed medication per medication refill protocol. Requested Prescriptions Pending Prescriptions Disp Refills SUMAtriptan (IMITREX) 100 MG tablet 18 Tablet 0 Sig: Take 1 Tablet by mouth as needed for Migraine. ENT INFORMATION COORDINATOR Keven Leblanc, RN - 03/29/2020 12:32 PM CST 90 day supply given per Emergency Refill Standing Order. Keven Leblanc RN 03/29/2020, 12:32 PM ENT INFORMATION COORDINATOR Interface, Out Valor Medical Prov Query - 03/29/2020 10:06 AM CST SUMAtriptan (IMITREX) 100 MG tablet Medication started: 04/08/2015 Last ordered by JIE MCKEON: 01/27/2020 (62 days ago) QTY: 18, Refills: 0, Sig: take 1 tabletby mouth as needed for migraine. (unchanged) -> An office visit is overdue (performed 14 months ago, required every 12 months). Last qualifying visit: 02/15/2019 (with JIE MCKEON) Next scheduled visit: None [facility], Reference: [id number], 03/29/2020 10:06:04 AM PATIENT INFORMATION COORDINATOR, Pool: [id number] FM REFILL ([id number]) ENT INFORMATION COORDINATOR documented in this encounter Plan of Treatment Not on filedocumented as of this encounter Visit Diagnoses Not on filedocumented in this encounter Care Teams Discovery Manager Relationship Specialty Start Date End Date Jie Mckeon DO PCP - General Family Practice 04/05/16 [address] [place] [address] documented as of this encounter
--- OUTSIDE RECORDS SUMMARY | 2021-10-05 15:25 | XMS_ITS | Encounter Summary ---
:1985 Author Organization [employer] Address [address] [place] [address] Care Team Providers Name Role Phone Jie Farah DO Primary Care Provider Reason for Visit Reason Comments MEDICATION CHECK migraine Encounter Details Date Type Department Care Team Description 02/23/2018 Office Visit [facility] [address] Jie Farah, [place] graine without aura Family Medicine DO and without status [address] francisco rainosus, [address] intractable (Primary [place], [place] Dx ) [phone] (Wo rk) Social History Tobacco Use Types [...] Sign Reading Time Taken Comments Blood Pressure 108/75 02/23/2018 9:02 AM SAIL REPAIR PERSON Pulse 73 02/23/2018 9:02 AM SAIL REPAIR PERSON Temperature - - Respiratory Rate - - Oxygen Saturation - - Inhaled Oxygen Concentration - - Weight 51.3 kg (113 lb) 02/23/2018 9:02 AM SAIL REPAIR PERSON Height - - Body Mass Index 18.1 04/09/2017 3:19 PM SAIL REPAIR PERSON documented in this encounter Patient Instructions Patient InstructionsJj Campoverde, CONDUCTOR ORCHESTRA - 02/23/2018 9:00 AM CST Images from the original note were not included. Healthy Weight Matters Understanding body mass index Your body mass index, or BMI, is a good way to check if your weight is healthy for your height. YourBMI helps us find out if your weight is putting your health at risk. If you are overweight or have obesity, your risk increases for developing health problems, such as type 2 diabetes, heart disease, high blood pressure and stroke. Your BMI measurement alone cannot predict your health risk. But if you know your BMI is high, you can take steps to set healthy goals and improve your overall well-being. Check your BMI using the tableon the back. Regardless of your BMI, we recommend making the following habits part of your daily life: ? Eat 5 servings of fruits and vegetables a day. ? Pay attention to portion sizes. ? Replace sugar-sweetened beverages with water or other calorie-free beverages. What can I do to improve my BMI? Losing weight is an important way to reduce your BMI and improve your overall health and well- being. Start small. Aim to lose a few pounds to begin rather than worry about your ideal weight. Here are some tips: ? Be physically active. Do activities that you enjoy, give you energy and are safe for you to do. Gradually build up the intensity (how hard your body is working) of activity. Long-term, aim for 30 minutes or more of activity most days of the week. Remember to check with your doctor before startingany physical activity program. ? Eat real (not processed) food. Eat mostly vegetables, fruit, whole grains and lean proteins. That way, you--not food manufacturers--control the ingredients that go into your meals. ? Aim for 5 servings of fruits and vegetables a day. Choose a variety of vegetables with different colors. Have fresh fruit for dessert. Limit deep-fried vegetables, such as mauritian fries. ? Choose lean protein, such as chicken or fish. Try non-meat sources of protein such as beans, soy and other legumes. ? Choose whole grains. Whole grain foods, such as whole-wheat bread, brown rice, barley, quinoa and oatmeal, contain the entire grain kernel and are better for your health. Limit refined grains, such as white bread and rice. ? Satisfy hunger with unsaturated fat. Fat helps you feel satisfied. Choose unsaturated fats, such as canola or olive oils, nuts and seeds, oil-based dressings and avocados. Limit saturated fats, whichare found in animal products and some plant oils, such as coconut and palm oils. ? Pay attention to portion sizes. Use smaller plates, bowls and glasses. Portion out foods before you eat. ? Drink water or unsweetened beverages. Avoid soda, sweetened coffees and teas, energy drinks and sports drinks, which are full of added sugar that your body does not need. Water is always the best option. ? Eat mindfully. Take time to fully enjoy your food and pay attention to what you are eating. Make meals last 15 to 30 minutes. This gives your body a chance to become satisfied and tell your brain to stop eating. Pay attention to what you are eating, rather than doing other activities such as watching TV or driving. This helps you pay attention to your body???s signals of hunger and fullness. ? Share meals when eating at restaurants, or put half of the entr??e in a to-go container before youstart eating. Body mass index (BMI) table First, find your height in the left-hand column. Then, follow the row over until you find your weight. Your BMI is the number where the row and column meet. Nutrition Services One-on-one visits with a registered dietitian are available at various clinic locations to help you develop a personalized plan for managing your weight. We also offer classes led by dietitians on a variety of topics. To schedule an appointment, find the clinic that works best for you. ? For [facility], call [phone]. ? For [facility], call [phone]. ? For [facility] and [facility], call [phone]. ? For [facility], call [phone]. ? For [facility], call [phone]. (06/2017) ??[facility] REPAIR PERSON documented in this encounter Progress Notes Jj Campoverde CMA - 02/23/2018 9:00 AM CST Medications needing refills have been pended for year supply. Requested Prescriptions Pending Prescriptions Disp Refills ??? SUMAtriptan (IMITREX) 100 MG tablet 54 Tablet 0 Sig: Take 1 Tablet by mouth as needed for Migraine. May repeat after 2 hours if needed. Max 2 tabs/24 hours. Max 9 days/month REPAIR PERSON Jie Farah DO - 02/23/2018 9:00 AM CST Subjective: Patient ID: Simona Che is a 32 y.o. female. Chief Complaint: Here today for a refill of her imitrex. She has been using this medication for many years. Seems to work alright for her. She also has started taking b12 to see if this helps. Has about 8 migraines a month. At some times she needs to take a second dose of the imitrex to make the migraine go away. Review of Systems Constitutional: Negative for activity [...] Plan: Simona was seen today for medication check. Diagnoses and all orders for this visit: Migraine without aura and without status migrainosus, not intractable Other orders - SUMAtriptan (IMITREX) 100 MG tablet; Take 1 Tablet by mouth as needed for Migraine. May repeat after 2 hours if needed. Max 2 tabs/24 hours. Max 9 days/month She will start taking magnesium and vitamin D as well to help prevent migraines. REPAIR PERSON documented in this encounter Plan of Treatment Not on filedocumented as of this encounter Visit Diagnoses Diagnosis Migraine without aura and without status migrainosus, not intractable - Primary Migraine without aura, without mention o f intractable migraine without mention of status migrainosus documented in this encounter Care Teams Planning And Analysis Manager Relationship Specialty Start Date End Date Jie Farah DO PCP - General Family Practice 04/05/16 [address] [place] [address] documented as of this encounter
--- OUTSIDE RECORDS SUMMARY | 2021-10-05 15:25 | XMS_ITS | Encounter Summary ---
:1985 Author Organization [employer] Address [address] [place] [address] Care Team Providers Name Role Phone Jie Farah DO Primary Care Provider Reason for Visit Reason Comments Refill Encounter Details Date Type Department Care Team Description 03/12/2017 [facility]ill [facility] Nanette Kay A PRN, BANK VAULT CUSTODIAN Refill Obstetrics/Gynecolog y [address] [facility] [address] [place] [address] [place], [place] [id number] (Wo rk) Social History Tobacco Use Types [...] Department Center 04/09/2017 3:30 PM Nanette Kay, FLIGHT MANAGER, BANK VAULT CUSTODIAN [facility] OBG [facility] OR SOLUTIONS ARCHITECT Jie Sheehan RN - 03/12/2017 11:49 AM [...] 02/13/17 Prescribing provider- rice No future appointments. OR SOLUTIONS ARCHITECT documented in this encounter Plan of Treatment Not on filedocumented as of this encounter Visit Diagnoses Not on filedocumented in this encounter Care Teams Fountain Helper Relationship Specialty Start Date End Date Jie Farah DO PCP - General Family Practice 04/05/16 [address] [place] [address] documented as of this encounter
--- OUTSIDE RECORDS SUMMARY | 2021-10-05 15:25 | XMS_ITS | Encounter Summary ---
:1985 [facility] Address [address] [place] [address] Care Team Providers Name Role Phone Jie Farah DO Primary Care Provider Reason for Visit Reason Onset Date Comments Refill 06/19/2016 Encounter Details Date Type Department Care Team Description 06/19/2016 Refill [facility] [address] Family Denisse Sue, DO Refill Medicine [address] [place] [place] [address] [place], [place] [address] [phone] Social History Tobacco Use Types Packs/Day Years [...] encounter Nursing Notes Bhavani Hoyos RN - 06/19/2016 10:19 AM CDT Further assistance needed to complete refill request Reason: RN Reviewed--Need signed order in [facility] for pended medication. Next Steps: Review pended order for accuracy. Sign. Close encounter. Requested Prescriptions Pending Prescriptions Disp Refills ??? SUMAtriptan (IMITREX) 100 MG tablet 54 Tab 3 Sig: Take 1 Tab by mouth as needed for Migraine. May repeat after 2 hours if needed. Max 2 tabs/24 hours. Max 9 days/month Bhavani Hoyos RN - 06/19/2016 10:18 AM CDT From: Simona Che To: Denisse Sue DO Sent: 06/19/2016 8:46 AM CDT Subject: Medication Renewal Request Original authorizing provider: DO Simona Underwood would like a refill of the following medications: SUMAtriptan (AKA IMITREX) 100 MG tablet [Denisse Sue DO] Preferred pharmacy: [address] Comment: Good Morning, I saw Dr. Farah earlier this month regarding a refill on this prescription. I am looking to have it refilled at the pharmacy. Could you please submit the new prescription? Thank you. documented in this encounter Plan of Treatment Not on filedocumented as of this encounter Visit Diagnoses Not on filedocumented in this encounter Care Teams Bad Work Gatherer Relationship Specialty Start Date End Date Jie Farah DO PCP - General Family Practice 04/05/[address] [place] [address] documented as of this encounter
--- OUTSIDE RECORDS SUMMARY | 2021-10-05 15:25 | XMS_ITS | Encounter Summary ---
:1985 Author Organization [email or web address] Address [address] [place] [address] Care Team Providers Name Role Phone Sofi Jie Rock DO Primary Care Provider Reason for Visit Reason Comments Annual Exam Encounter Details Date Type Department Care Team Description 04/09/2017 [facility] Nanette Kay Well female exam with routine gynecological exam (Primary Dx); Obstetrics/Gynecolog PLUGGER, INFORMATION ASSOC Oral contraceptive pill surveillance y [address] [facility] 5th [place] [address] [phone] (Wo rk) Social History Tobacco Use Types [...] Sign Reading Time Taken Comments Blood Pressure 110/74 04/09/2017 3:19 PM ACTION FINISHER Pulse 82 04/09/2017 3:19 PM ACTION FINISHER Temperature - - Respiratory Rate - - Oxygen Saturation - - Inhaled Oxygen Concentration - - Weight 53.3 kg (117 lb 6.4 oz) 04/09/2017 3:19 PM ACTION FINISHER Height 168.3 cm (5' 6.25) 04/09/2017 3:19 PM ACTION FINISHER Body Mass Index 18.81 04/09/2017 3:19 PM ACTION FINISHER documented in this encounter Patient Instructions Patient InstructionsNanette Kay APRN, CNP - 04/09/2017 3:30 PM CST Thank you for coming in today for your Well Visit. No pap smear indicated today, your next pap smearis due in 2019. Your last cholesterol evaluation was normal in 2012. I have refilled your oral contraceptives for another year. Fortunately you have no contraindicationsto continue your pills. I am available at [phone] or through [employer] if you have any concerns. Happy Liane's Day. I hope you are feeling better.soon.. ON FINISHER documented in this encounter Progress Notes Nanette Kay APRN, CNP - 04/09/2017 3:30 PM CST Subjective: Simona Che is a 31 y.o. partnered female with an LMP of: Patient's last menstrual period was 03/10/2017 (approximate). Presents as a known patient for an annual exam.Requesting refill of ocps. No concerns with pills. Migraine headache presentation improved, no aura. Continues in a mutually monogamous relationship. Recently start Augmentin for sinusitis. Declines influenza vaccine Past Medical History: Past Medical History: Diagnosis Date ??? Anemia ??? Asthma ([facility]) ??? Immunization, other disease ??? Irregular menstrual cycle ??? Migraine, unspecified, without mention of intractable migraine without mention of status migrainosus ??? Trauma 08/2011 Fractured patella ??? Urinary tract infection 05/2010 Pyelonephritis ??? Varicella Past Surgical History: Past Surgical History: Procedure Laterality Date ??? FOOT SURGERY 2012 ??? WISDOM TEETH EXTRACTION Family History: Family History Problem Relation Age of Onset ??? Thyroid Disorder Mother ??? High Cholesterol Father ??? Cancer Maternal Grandfather leukemia ??? Diabetes Paternal Grandfather ??? Alzheimer's Paternal Grandmother Gynecologic History: Period Cycle (Days): 28 Period Duration (Days): (3-4 days) Period Pattern: Regular Menstrual Flow: (Variable) Dysmenorrhea: (!) Mild Dysmenorrhea Symptoms: Cramping Relationship duration:30 months Obstetric History T0 L0 SAB0 TAB0 Ectopic0 Multiple0 Live Births0 Social History Social History ??? Marital status: Single Spouse name: N/A ??? Number of children: 0 ??? 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 Smoking status: Never Smoker ??? Smokeless tobacco: Never Used ??? Alcohol use 1.2 - 1.8 oz/week 2 - 3 Glasses of wine per week Comment: 2-3 per glasses drinks per week ??? Drug use: No ??? Sexual activity: Yes Partners: Male control/ protection: OCP Other Topics Concern ??? Bike Helmet Yes ??? City Water No ??? Exercise Yes Yoga one time/week. Running 3-10 miles 5-6 days a week ??? Guns In Home Yes ??? Seat Belt Yes ??? Special Diet No ??? Weight Concern No Social History Narrative Works for [employer] Health Maintenance: Lab Results Component Value Date/Time Cholesterol 159 07/30/2012 1211 Cholesterol/HDL Ratio Screen 1.9 07/30/2012 1211 HDL Cholesterol 84 07/30/2012 1211 pelvic ultrasound:n/a No results found for: GLUCOSE Immunization History Administered Date(s) Administered ??? DPT-Historical 02/11/1984, 04/17/1984, 06/12/1984 ??? MMR 03/12/1985 ??? OPV 02/11/1984, 04/17/1984 ??? TDAP (BOOSTRIX) 07/30/2012 Current Outpatient Prescriptions Medication Sig Dispense Refill ??? amoxicillin-clavulanate (AUGMENTIN) 875-125 mg per tablet Take 1 Tab by mouth two times a day for 7 days. 14 Tab 0 ??? Norethin Tan-Eth Estrad-FE (BLISOVI FE 03/15) 1-20 MG-MCG tablet Take 1 Tab by mouth daily. 84 Tab 3 ??? SUMAtriptan (IMITREX) 100 MG tablet Take 1 Tab by mouth as needed for Migraine. May repeat after2 hours if needed. Max 2 tabs/24 hours. Max 9 days/month 54 Tab 3 No current facility-administered medications for this visit. No Known Allergies Review of Systems Ears, nose, mouth, throat, and face: negative Respiratory: negative Cardiovascular: negative Gastrointestinal: negative Genitourinary:negative Integument/breast: negative Musculoskeletal:negative Objective: BP 110/74 Pulse 82 Ht 5' 6.25 (1.683 m) Wt 117 lb 6.4 oz (53.3 kg) LMP 03/10/2017 (Approximate) BMI 18.81 kg/m2 General Appearance: Alert, cooperative, no distress, appears [...] Normal female without lesion, discharge or tenderness. Rectal: Normal tone, no masses or tenderness Extremities: Extremities normal, atraumatic, no cyanosis or edema Skin: Skin color, texture, turgor normal, no rashes or lesions Lymph nodes: Cervical, supraclavicular, and axillary nodes normal . Assessment: Encounter Diagnoses Name Primary? Well female exam with routine gynecological exam Yes ??? Oral contraceptive pill surveillance Plan: Preventive care guidelines reviewed. Active lifestyle, plan to do cholesterol in 5-10 years. Risks benefits, correct usage of ocps reviewed. No contraindications for continued use of ocps. RTC 1 year,pap/HPV due at that visit. Orders Placed This Encounter ??? Norethin Tan-Eth Estrad-FE (BLISOVI FE 03/15) 1-20 MG-MCG tablet Patient Instructions Thank you for coming in today for your Well Visit. No pap smear indicated today, your next pap smearis due in 2019. Your last cholesterol evaluation was normal in 2012. I have refilled your oral contraceptives for another year. Fortunately you have no contraindicationsto continue your pills. I am available at [phone] or through [employer] if you have any concerns. Happy Rob's Day. I hope you are feeling better.soon.. Current Control:OCPs ON FINISHER documented in this encounter Plan of Treatment Not on filedocumented as of this encounter Visit Diagnoses Diagnosis Well female exam with routine gynecologi bre exam - Primary Routine gynecological examination Oral contraceptive pill surveillance Surveillance of previously prescribed co ntraceptive pill documented in this encounter Care Teams Audit Tech Relationship Specialty Start Date End Date Jie Farah DO PCP - General Family Practice 04/05/16 [address] [place] [address] documented as of this encounter
--- OUTSIDE RECORDS SUMMARY | 2021-10-05 15:25 | XMS_ITS | Encounter Summary ---
:1985 Author Organization [employer] Address [address] [place] [address] Care Team Providers Name Role Phone Jie Farah DO Primary Care Provider Reason for Visit Reason Comments PAIN, SINUS Encounter Details Date Type Department Care Team Description 04/07/2017 Hospital Encounter [facility] Justine Winn, Acute sinusitis with Care PA-C symptoms > 10 days [address] [address] [phone] Social History Tobacco Use Types Packs/Day Years [...] Comments Blood Pressure 118/80 04/07/2017 5:36 PM COMPETITIVE INTELLIGENCE ANALYST Pulse 60 04/07/2017 5:36 PM COMPETITIVE INTELLIGENCE ANALYST Temperature 36.8 ??C (98.3 ??F) 04/07/2017 5:36 PM COMPETITIVE INTELLIGENCE ANALYST Respiratory Rate 16 04/07/2017 5:36 PM COMPETITIVE INTELLIGENCE ANALYST Oxygen Saturation - - Inhaled Oxygen Concentration [...] ER right away for recheck if concerns. ETITIVE INTELLIGENCE ANALYST AttachmentsThe following attachments cannot be sent through Care Everywhere. SINUSITIS (KYRGYZ)documented in this encounter Medications at Time of [...] for recheck if concerns. Discharge References/Attachments SINUSITIS (KYRGYZ) ETITIVE INTELLIGENCE ANALYST documented in this encounter Plan of Treatment Not on filedocumented as of this encounter Visit Diagnoses Diagnosis Acute sinusitis with symptoms > 10 days Acute sinusitis, unspecified Triage Assessment Note - Katelyn Neil RN - 04/07/2017 5:34 PM CST C/o sinus pain, congestion, decreased smell sensation. Sx started Sat. ETITIVE INTELLIGENCE ANALYST documented in this encounter Care Teams Bumper Machine Operator Relationship Specialty Start Date End Date Jie Farah DO PCP - General Family Practice 04/05/16 [address] [place] [address] documented as of this encounter
--- OUTSIDE RECORDS SUMMARY | 2021-10-05 15:26 | XMS_ITS | Encounter Summary ---
:1985 Author Organization [facility] Address [address] [place] [address] Care Team Providers Name Role Phone Md MINA Leigh Primary Care Provider Reason for Visit Reason Comments Follow-up Encounter Details Date Type Department Care Team Description 09/10/2011 Office Visit [facility] Angelica Quiroz of TOOELE MD Elliott patella (Primary Dx) [address] [place] [address] [place], [place] [phone] (Wo rk) Social History Tobacco Use Types Packs/Day Years Used Date Smoking Tobacco: Never Assessed Sex Assigned at Date Recorded Not on file documented as of this encounter Progress Notes Angelica Thomas MD - 09/10/2011 3:42 PM CDT Progress Notes signed by Angelica Thomas MD at 09/12/11 0929 Author: Angelica Thomas MD Service: (none) Author Type: Physician Filed: 09/12/111718 Note Time: 09/10/11 1542 Status: Signed Sausage Linker: Angelica Thomas MD (Physician) NAME: ODESSA TELLEZ VISIT: [id number] DICTATING CLINICIAN: ANGELICA THOMAS MD JOB: [id number] Med JOB: [id number] LOC: 3711 CLINIC PROGRESS NOTE DATE OF [...] Primary documented in this encounter Care Teams Coil Tester Relationship Specialty Start Date End Date Md Leigh MD PCP - General 05/26/10 05/11/13 [place] [address] documented as of this encounter
--- OUTSIDE RECORDS SUMMARY | 2021-10-05 15:26 | XMS_ITS | Encounter Summary ---
:1985 Author Organization [facility] Address [address] [place] [address] Care Team Providers Name Role Phone Denisse Sue DO Primary Care Provider Reason for Visit Reason Comments Refill Encounter Details Date Type Department Care Team Description 12/06/2014 [facility] Visit [facility] Nanette Kay, Counseling for Obstetrics/Gynecolog DON GRANT control, oral y [address] (Primary [address] Dx) [facility] [address] [place] [address] [place], [place] [phone] [address] Social History Tobacco Use Types Packs/Day Years [...] encounter Patient Instructions Patient InstructionsNanette Kay, JUANITA, NURSE CLINICIAN - 12/06/2014 9:33 AM CDT Thank you [...] smear for February 2015. You can call [phone] to set the appointment. I am available at [phone] or through [employer] if your have any questions. documented in [...] smear for February 2015. You can call [phone] to set the appointment. I am available at [phone] or through [employer] if your have any questions. The patient [...] contraceptives documented in this encounter Care Teams Donation Specialist Relationship Specialty Start Date End Date Denisse Sue DO PCP - General 05/12/13 2 [address] [place] [address] documented as of this encounter
--- OUTSIDE RECORDS SUMMARY | 2021-10-05 15:26 | XMS_ITS | Encounter Summary ---
:1985 Author [facility] Address [address] [place] [address] Care Team Providers Name Role Phone Md MINA Leigh Primary Care Provider Reason for Visit Reason Comments INJURY, KNEE Encounter Details Date Type Department Care Team Description 10/31/2011 Office Visit [facility] Kraus of [place] MD Elliott patella (Primary Dx) [address] [place] [address] [place], [place] [phone] (Wo rk) Social History Tobacco Use Types Packs/Day Years Used Date Smoking Tobacco: Never Assessed Sex Assigned at Date Recorded Not on file documented as of this encounter Progress Notes Angelica Thomas MD - 10/31/2011 4:48 PM CDT Progress Notes signed by Angelica Thomas MD at 11/06/11 2312 Author: Agnelica Thomas MD Service: (none) Author Type: Physician Filed: 11/06/11 1625 Note Time: 10/31/11 1648 Status: Signed Tactical Debriefer: Angelica Thomas MD (Physician) NAME: ODESSA CHE VISIT: [id number] DICTATING CLINICIAN: ANGELICA THOMAS MD JOB: [id number] Med JOB: [id number] LOC: 3711 CLINIC PROGRESS NOTE DATE OF [...] the bike and recently on the elliptical link trainer operator with no symptoms. OBJECTIVE: There is no [...] and symptoms to monitor. We also discussed intermediate card tender outcomes may be affected by this injury [...] Primary documented in this encounter Care Teams Office Support Associate Relationship Specialty Start Date End Date Md Lu, MD PCP - General 05/26/10 05/11/13 [place] [address] documented as of this encounter
--- OUTSIDE RECORDS SUMMARY | 2021-10-05 15:26 | XMS_ITS | Encounter Summary ---
:1985 Author Organization [employer] Address [address] [place] [address] Care Team Providers Name Role Phone Linette, Denisse Mane DO Primary Care Provider Encounter Details Date Type Department Care Team Description 05/28/2013 Hospital Encounter [facility] [address] Ambul Surge ry DPM [address] [place] [address] [phone] (Wo rk) Social History Tobacco Use Types [...] signed by Elizabeth Hurtado DPM at 05/31/13 0913 Author: Elizabeth Hurtado DPM Service: (none) Author Type: Physician Filed: 05/31/13 0951 Note Time: 05/28/13 1328 Status: Signed 3D Artist: Elizabeth Hurtado DPM (Physician) NAME: ODESSA CHE MR#: [id number] CSN: [id number] AUTHENTICATING CLINICIAN: Elizabeth Hurtado DPM CONFIRM #: [id number] LOC: 1 OPERATIVE REPORT DATE OF OPERATION: [...] 6 weeks postoperatively. SMS:MEDQ C: CONFIRM #: [id number] Elizabeth Hurtado DPM - 05/28/2013 11:28 AM [...] Results Pathology Report (05/28/2013 7:00 AM CDT) [facility] gist Method Time Signature Path: ?FINAL SURGICAL PATHOLOGY REP ORT HP CONVERSION Pathology #: [id number] ? Date Obtained: 05/28/2013 ?Date Received: 05/28/2013 [...] filled with a thin, clear serous fluid. Bryologist sections are submitted in 4469 . ?WEYAL [...] on filedocumented in this encounter Care Teams Senior Android Software Engineer Relationship Specialty Start Date End Date Denisse Sue DO PCP - General 05/12/13 04/04/16 [address] [place] [address] documented as of this encounter
--- OUTSIDE RECORDS SUMMARY | 2021-10-05 15:26 | XMS_ITS | Encounter Summary ---
:1985 [facility] Address [address] [place] [address] Care Team Providers Name Role Phone Md MINA Leigh Primary Care Provider Reason for Visit Reason Comments Follow-up Encounter Details Date Type Department Care Team Description 09/24/2011 Office Visit [facility] Angelica Thomas (Primary CENTER MD Elliott Dx) [address] [place] [address] [place], [place] [phone] (Wo rk) Social History Tobacco Use Types Packs/Day Years Used Date Smoking Tobacco: Never Assessed Sex Assigned at Date Recorded Not on file documented as of this encounter Progress Notes Angelica Thomas MD - 09/24/2011 4:45 PM CDT Progress Notes signed by Angelica Thomas MD at 09/30/11 0925 Author: Angelica Thomas MD Service: (none) Author Type: Physician Filed: 09/30/11924 Note Time: 09/24/11 9215 Status: Signed Provider Engagement Executive: Angelica Thomas MD (Physician) NAME: ODESSA CHE VISIT: [id number] DICTATING CLINICIAN: ANGELICA THOMAS MD JOB: [id number] Med JOB: [id number] LOC: 3711 CLINIC PROGRESS NOTE DATE OF [...] patella documented in this encounter Care Teams Ceramic Restorer Relationship Specialty Start Date End Date Md Leigh MD PCP - General 05/26/10 05/11/13 [place] [address] documented as of this encounter
--- OUTSIDE RECORDS SUMMARY | 2021-10-05 15:26 | XMS_ITS | Encounter Summary ---
:1985 Author [facility] Address [address] [place] [address] Care Team Providers Name Role Phone Linette, Denisse Mane ZARAGOZA Primary Care Provider Reason for Visit Reason Comments Post-Op Check Encounter Details Date Type Department Care Team Description 07/21/2013 Office Visit [facility] [address] toperative Podiatric MedSurg FAN Gilliam follow-up (Primary Dx) [address] [place] [phone] (Wo rk) Social History Tobacco Use Types Packs/Day Years Used Date Smoking Tobacco: Never Assessed Sex Assigned at Date Recorded Not on file documented as of this encounter Progress Notes Elizabeth Hurtado DPM - 07/21/2013 9:05 AM CDT Progress Notes signed by Elizabeth Hurtado DPM at 07/21/13 6198 Author: Elizabeth Hurtado DPM Service: (none) Author Type: Physician Filed: 07/21/13 1039 Note Time: 07/21/131217 Status: Signed Outreach Analyst: Elizabeth Hurtado DPM (Physician) NAME: ODESSA CHE MR#: [id number] CSN: [id number] AUTHENTICATING CLINICIAN: Elizabeth Hurtado DPM CONFIRM #: [id number] LOC: 439 CLINIC PROGRESS NOTE DATE OF [...] another month. She can continue with an rala-oef-vvfvtew scar product, such as a silicone gel product. Will release her today since she is doing quite well. Physical therapy referral was placed in case she would like to proceed with that if needed. SMS:MEDQ C: CONFIRM #: [id number] documented in this encounter Plan of Treatment Not on filedocumented as of this encounter Visit Diagnoses Diagnosis Postoperative follow-up - Primary Follow-up examination, following unspeci fied surgery documented in this encounter Care Teams Sleeve Setter Safety Stitch Relationship Specialty Start Date End Date Denisse Sue DO PCP - General 05/12/13 04/04/16 [address] [place] [address] documented as of this encounter
--- OUTSIDE RECORDS SUMMARY | 2021-10-05 15:26 | XMS_ITS | Encounter Summary ---
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 Past Medical History: Reviewed in [facility] Social History: Reviewed in [facility] Review of Systems: See HPI, all other [...] 1-2 weeks for a recheck. Contact information [address] [facility] [phone] ERCIAL CLEANER Cherelle Clay RN - 04/08/2015 3:32 PM CST rechecked on pt. pt states pain level now 3/10 to head. pt states feels much better. ERCIAL CLEANER Cehrelle Clay RN - 04/08/2015 3:11 PM CST pt resting on table, no distress noted. pt states migraine 8/10 now. will monitor and recheck post Zofran and Imitrex. ERCIAL CLEANER documented in this encounter Miscellaneous Notes Medication [...] RN Oral - 04/08/15 1510 - - ERCIAL CLEANER ED AVS Snapshot - Bob Saavedra MD - 04/08/2015 3:50 PM CST Images from the original note were not included. [facility] [address] [facility] [address] [place] [address] Dept: [phone] [email or web address] Simona Che 04/08/2015 2:41 PM Hospital Encounter Description: Female : 1985 Department: [facility] Thank you for choosing [facility] for your health care visit with Norman Liao MD. We are happy to care for you and provide this summary of your visit. Your primary manager medicare marketing is currently listed as Denisse Sue DO. HERE IS WHAT YOU NEED TO KNOW To learn how you can take steps to stay as healthy as you can be visit [email or web address] Discharge Instructions Migraine Headache: Care Instructions Your [...] Where can you learn more? Go to [employer]/[place] Self Representation Document Preparation and enter U690 in the search box. Current as of: April 15, 2014 Content Version: 107 ?? [phone] [employer]. HERE IS WHAT YOU NEED TO DO Call your clinic if: You develop new symptoms Your symptoms worsen unexpectedly You are not improving as expected You have questions about your visit or medications Follow-up Information Follow up with Denisse Sue DO. Specialty: Family Medicine Why: In the next 1-2 weeks for a recheck. Contact information: [address] [facility] [address] HERE IS INFORMATION FROM TODAY'S VISIT Reason [...] Ethnicity Preferred Language 1985 Female White Non- Sami This document contains confidential information about your health and care. It is provided directlyto you for your personal, private use only. ERCIAL CLEANER documented in this encounter Plan of Treatment [...] tried taking Excedrin migraine with no relief. ERCIAL CLEANER documented in this encounter Care Teams Director Of Strategic Programs Relationship Specialty Start Date End Date Denisse Sue DO PCP - General 05/12/13 2 [address] [place] [address] documented as of this encounter
--- OUTSIDE RECORDS SUMMARY | 2021-10-05 15:26 | XMS_ITS | Encounter Summary ---
:1985 Author [facility] Address [address] [place] [address] Care Team Providers Name Role Phone Jie Farah DO Primary Care Provider Reason for Visit Reason Comments Refill SUMAtriptan (IMITREX) 100 MG tablet [Pharmacy Med Name: SUMATRIPTAN SUCC 100 MG TABLET] Encounter Details Date Type Department Care Team Description 06/19/2016 Refill [facility] [address], Refill (SUMAtriptan Family Medicine [address] (IMITREX) 100 MG tablet [address] [Pharmacy Med Name: [address] [place], [place] SUMATRIPTAN SUCC 100 [place] [address] TABLET]) [address] [phone] Social History Tobacco Use Types Packs/Day Years [...] 76 mm Hg on 05/14/2016 Powered by [employer], Reference: [id number], 06/19/2016 7:15:38 AM CDT, Pool: [id number] FM REFILL ([id number]) documented in this encounter Plan of Treatment Not on filedocumented as of this encounter Visit Diagnoses Not on filedocumented in this encounter Care Teams Bond Runner Relationship Specialty Start Date End Date Jie Farah DO PCP - General Family Practice 04/05/16 [address] [place] [address] documented as of this encounter
--- OUTSIDE RECORDS SUMMARY | 2021-10-05 15:26 | XMS_ITS | Encounter Summary ---
:1985 Author Organization [employer] Address [address] [place] [address] Care Team Providers Name Role Phone Md MINA Leigh Primary Care Provider Encounter Details Date Type Department Care Team Description 04/01/2013 Imaging CTMRI Radiology MRI Left ankle pain (Primary Dx) [address] [facility] [place] [address] Social History Tobacco Use Types Packs/Day Years Used Date Smoking Tobacco: Never Assessed Sex Assigned at Date Recorded Not on file documented as of this encounter Plan of Treatment Not on filedocumented as of this encounter Procedures Procedure Name Priority Date/Time Associated Diagnosis Comme nts MR ANKLE LT W/WO IV Routine 04/01/2013 8:02 PM Left ankle pain Results for this CONT [address] [facility] procedure are i n the results section. documented in this encounter Results MR Ankle Lt W/WO IV Cont (04/01/2013 8:[address] [facility]) Anatomical Region Laterality Modality Lower Extremity, Ankle, Foot, Leg, Skeletal, Foot & Ankle Le ft Other Specimen (Source) Anatomical Location Collection Method / Collectio n Time Received Time / Laterality Volume Impressions 04/02/2013 8:[address] IMPRESSION: 1. Cystic 1.9 cm lesion superficial to t he distal tibialis anterior tendon. ??This has imaging characteristics most consistent with tibialis anterior tendon bursitis. ??Differential also includes gangli on cyst. ??However, if more definitive d iagnosis is not obtained and this lesion increases in s ize, followup imaging is recommended. 2. Mild amount of fluid surrounding the more proximal tibialis anterior tendon with associated surrounding soft tissue enhancement consistent with mild tenosynovitis. ??No abnormal signal within the tib ialis anterior tendon to suggest tendino lorena. ??The tibialis anterior tendon is intact. ?? Narrative 04/02/2013 8:[address] TECHNIQUE: Multiplanar and multisequenti al images of the left ankle were obtained prior to and after administration of 6 mL of Gadavist IV. COMPARISON: None. FINDINGS: There is a 1.9 x 0.9 x 0.8 cm lobular T2 hyperintense and T1 hypointense lesion superficial to the distal tibialis anterior tendon proximal to the tendon insertion (series 8 image 10 through 12). ??On the postcontrast images there is mild enhancement of the wall of this lesion a nd the surrounding soft tissues. ??No central enhancement of this lesion. ?? There is a mild amount of increased T2 s ignal around the tibialis anterior tendon just proximal to this lesion with associated contrast enhancement (series 5 image 11 through 14). ??The tibialis anterior tendon is intact. ?? The remaining visualized tendons about t he ankle are intact. ??No other area of abnormal soft tissue enhancement or discrete soft tissue mass. ??Trace amount of fluid in the retrocalcaneal bursa. ??Question tiny anterior tibiotalar joint effusion. Procedure Note Norman Parrish MD - 08/12/2015Format ting of this note might be different from the original. TECHNIQUE: Multiplanar and multisequenti al images of the left ankle were obtained prior to and after administration of 6 mL of Gadavist IV. COMPARISON: None. FINDINGS: There is a 1.9 x 0.9 x 0.8 cm lobular T2 hyperintense and T1 hypointense lesion superficial to the distal tibialis anterior tendon proximal to the tendon insertion (series 8 image 10 through 12). On the postcontrast images there is mild enhancement of the wall of this lesion a nd the surrounding soft tissues. No central enhancement of this lesion. There is a mild amount of increased T2 s ignal around the tibialis anterior tendon just proximal to this lesion with associated contrast enhancement (series 5 image 11 through 14). The tibialis anterior tendon is intact. The remaining visualized tendons about t he ankle are intact. No other area of abnormal soft tissue enhancement or discrete soft tissue mass. Trace amount of fluid in the retrocalcaneal bursa. Question tiny anterior tibiotalar joint effusion. IMPRESSION IMPRESSION: 1. Cystic 1.9 cm lesion superficial to t he distal tibialis anterior tendon. This has imaging characteristics most consistent with tibialis anterior tendon bursitis. Differential also includes ganglion cyst. However, if more definitive diagnosis is not obtained and this lesion increases in s ize, followup imaging is recommended. 2. Mild amount of fluid surrounding the more proximal tibialis anterior tendon with associated surrounding soft tissue enhancement consistent with mild tenosynovitis. No abnormal signal within the tibialis anterior tendon to suggest tendinopathy. The tibialis anterior tendon is intact. Elizabeth HUMPHREYM RAD MRI documented in this encounter Visit Diagnoses Diagnosis Left ankle pain - Primary Pain in joint, ankle and foot documented in this encounter Care Teams Field Artillery Fire Control Man Relationship Specialty Start Date End Date Md Lu, PCP - General 05/26/10 05/11/13 [place] [address] documented as of this encounter
--- OUTSIDE RECORDS SUMMARY | 2021-10-05 15:26 | XMS_ITS | Encounter Summary ---
:1985 Author Organization [employer] Address [address] [place] [address] Care Team Providers Name Role Phone Denisse Sue DO Primary Care Provider Reason for Visit Reason Comments Annual Exam Encounter Details Date Type Department Care Team Description 03/02/2015 [facility] Nicholas Kay Preventativ e health care (Primary Dx); Obstetrics/Gynecolog DON GRANT Pap smear, as part of routine gynecologi bre examination; y [address] for STD (sexually tra nsmitted disease); [address] Counseling for control, oral contr aceptives [facility] [address] [place] [address] [place], [place] [phone] Social History Tobacco Use Types Packs/Day Years Used Date Smoking Tobacco: Never Assessed Sex Assigned at Date Recorded Not on file documented as of this encounter Last Filed Vital Signs Vital Sign Reading Time Taken Comments Blood Pressure 109/73 03/02/2015 8:28 AM COMFORT STATION ATTENDANT Pulse 65 03/02/2015 8:28 AM COMFORT STATION ATTENDANT Temperature - - Respiratory Rate - - Oxygen Saturation - - Inhaled Oxygen Concentration - - Weight 55.4 kg (122 lb 1.6 oz) 03/02/2015 8:28 AM COMFORT STATION ATTENDANT Height 168.3 cm (5' 6.25) 03/02/2015 8:28 AM COMFORT STATION ATTENDANT Body Mass Index 19.56 03/02/2015 8:28 AM COMFORT STATION ATTENDANT documented in this encounter Patient Instructions Patient [...] infection identified your results will be on OpenCounterhart . Your control pills have been refilled [...] for evaluation. I am always available through [employer] or by calling the nurse triage line at [phone]. Have a great 2016 Kimberley! ORT STATION ATTENDANT documented in this encounter Progress Notes Amy Romero RN - 03/09/2015 8:57 AM COMFORT STATION ATTENDANT Quick Note: Dear Simona, I am writing [...] call Cervical Cancer Screening and Management Team [phone] Sincerely, Amy Romero RN on behalf of Dr. Airam Obando, Log Driver Rosalinda Dang Cervical Cancer Screening and Management ORT STATION ATTENDANT Nicholas Kay APRN, CNP - 03/02/2015 9:07 [...] Past Surgical History Procedure Laterality Date ??? [place] tooth extraction ??? Foot surgery 2012 Family [...] part of routine gynecological examination Z12.4 V76.2 HI OBTAINING SCREEN PAP SMEAR Pap Test Order [...] Order Specific Question: Ordering Provider? (, Miladys, ZIGZAG MACHINE OPERATOR, or PA Only) Answer: NICHOLAS KAY [[id number]] ??? Pap Test Order Order Specific Question: LMP (Date) Answer: 02/26/15 Order Specific Question: Abnormal Bleeding? Answer: No Order Specific Question: Menstrual Status Answer: None Apply Order Specific Question: Current form of therapy Answer: Hormone Therapy Order Specific Question: Hx of abnormal Pap test/ABORIGINAL HOME SCHOOL LIAISON OFFICER cancer outside of [facility]? Answer: No Order Specific Question: Pap Source Answer: Cervical Order Specific Question: Pap test type Answer: Screening Order Specific Question: HPV Testing Answer: HPV Regardless of Pap Results (Screening age 30+) Order Specific Question: Ordering Provider? (Miladys Almonte, ZIGZAG MACHINE OPERATOR, or PA Only) Answer: NICHOLAS KAY [[id number]] ??? HPV with 16 18 Genotyping ??? HI OBTAINING SCREEN PAP SMEAR ??? norethindrone-ethinyl estradiol [...] weeks, [facility] A culture for gonorrhea and Chlamydia was collected. You will be called with these results indicate infection and treatment, otherwise if no infection identified your results will [facility] . Your control pills have been [...] for evaluation. I am always available through [employer] or by calling the nurse triage line at [phone]. Have a great 2016 Kimberley! Current Control: Oral contraceptives ORT STATION ATTENDANT documented in this encounter Miscellaneous Notes Miscellaneous [...] test results, callCervical Cancer Screening and Management [phone],Leslie B Carpenter, RN on behalf ofDr. Airam Obando, Medical DirectorKittson Memorial Hospital Cervical Cancer Screening and Management ORT STATION ATTENDANT Miscellaneous - 04/03/2016 11:05 PM CSTNotes Recorded [...] test results, callCervical Cancer Screening and Management [phone],Amy Romero, RN on behalf ofDr. Airam Obando, Medical DirectorPark Laurence Cervical Cancer Screening and Management ORT STATION ATTENDANT documented in this encounter Plan of Treatment Not on filedocumented as of this encounter Procedures Procedure Name Priority Date/Time Associated Diagnosis Comme nts CHLAMYDIA & GC (14 Routine 03/02/2015 9:08 AM Screen for STD R esults for this YEARS AND OLDER) COMFORT STATION ATTENDANT (sexually transmitted pr ocedure are in disease) the results section. PAP TEST ORDER Routine 03/02/2015 8:59 AM Pap smear, as part o f Results for this COMFORT STATION ATTENDANT routine gynecological proced ure are in examination the results section. HPV WITH 16 18 Routine 03/02/2015 8:59 AM Results for this GENOTYPING, COMFORT STATION ATTENDANT procedure are i n CERVICAL/ENDOCERVIC the resu lts AL section. ANATOMICAL PATH Routine 03/02/2015 8:59 AM Result s for this LIQUID BASED COMFORT STATION ATTENDANT procedure are i n the results section. documented in this encounter Results Chlamydia & GC (03/02/2015 9:08 AM COMFORT STATION ATTENDANT) [facility] gist Method Time Signature Chlamydia Negative Negative HP CONVERSION Trachomatis STD Comment: Test Performed by [employer] CLIA Number [id number] N. gonorrhoeae STD Negative Negative HP CONVERSI ON Comment: Test Performed by [employer] Performed at [facility], [address] ??[address] CLIA Number [id number] Source STD Cervix HP CONVERSION Comment: CLIA Number [id number] Specimen Anatomical Collection Method Collection Time Receive d Time (Source) Location / / Volume Laterality 03/02/2015 9:08 AM 6 3:29 COMFORT STATION ATTENDANT PM COMFORT STATION ATTENDANT Nicholas A Rahul GRANT, PAINT LINE PRODUCTION SUPERVISOR LAB_1 Performing Organization Address City/State/ZIP Code Phon e Number HP CONVERSION Pap Smear (03/02/2015 8:59 AM COMFORT STATION ATTENDANT) Specimen (Source) Anatomical Collection Method Collection Time Re ceived Time Location / / Volume Laterality 03/02/2015 8:59 AM COMFORT STATION ATTENDANT Narrative HP CONVERSION - 03/06/2015 5:14 PM COMFORT STATION ATTENDANT FINAL GYNECOLOGICAL CYTOLOGY REPORT Pathology #: [id number] ?Date Obtained: 03/02/2015 ? Date Received: 03/03/2015 [...] occur. ? End of Report Performed at [facility], [address] [place] [address] Transcriptions 04/03/2016 11:05 PM CSTNotes Recorded by [...] results, call Cervical Cancer Screening and Management [phone],Amy Romero RN on behalf ofDr. Airam Obando, Log Driver [facility] Cervical Cancer Screening and Management Nicholas Kay APRN, PAINT LINE PRODUCTION SUPERVISOR LAB_1 Performing Organization Address City/State/ZIP Code Phon e Number HP CONVERSION HPV with 16 18 Genotyping (03/02/2015 8:59 AM COMFORT STATION ATTENDANT) [facility] Method Time Signature HPV High Risk Not [...] and its pe rformance characteristics determined by [facility]. It has not been cleared or approved by [facility]. The laboratory is regulated under CLIA as qualified to perform high-complexity testing. This test is used for clinical purposes. It should not be regarded as investigational or fo r research. Specimen Anatomical Collection Method Collection Time Receive d Time (Source) Location / / Volume Laterality 03/02/2015 8:59 AM 6 8:59 COMFORT STATION ATTENDANT AM COMFORT STATION ATTENDANT Narrative HP CONVERSION - 03/08/2015 2:17 PM COMFORT STATION ATTENDANT Performed at [facility], [facility] [place] [address] CLIA number [id number] Transcriptions 04/03/2016 11:05 PM CSTNotes Recorded by [...] results, call Cervical Cancer Screening and Management [phone] Contreras RN on behalf ofDr. Airam Obando, Log Driver Rosalinda Bradyllet Cervical Cancer Screening and Management Nicholas Kay APRN, DON LAB_1 Performing Organization Address [facility] Phon e Number HP CONVERSION Pap Test Order (03/02/2015 8:59 AM COMFORT STATION ATTENDANT) [facility] Method Time Signature Pap Smear Collected HP CONVERSION Monolayer tracking test Specimen Anatomical Collection Method Collection Time Receive d Time (Source) Location / / Volume Laterality 03/02/2015 8:59 AM 6 8:49 COMFORT STATION ATTENDANT AM COMFORT STATION ATTENDANT Nicholas Kay APRN, DON LAB_1 Performing Organization Address [facility] Phon e Number HP CONVERSION documented [...] contraceptives documented in this encounter Care Teams Stage Director Relationship Specialty Start Date End Date Denisse Sue DO PCP - General 05/12/13 2 [address] [place] [address] documented as of this encounter
--- OUTSIDE RECORDS SUMMARY | 2021-10-05 15:26 | XMS_ITS | Encounter Summary ---
:1985 Author Organization [facility] Address [address] [place] [address] Care Team Providers Name Role Phone Denisse Sue DO Primary Care Provider Reason for Visit Reason Comments HEADACHE,MIGRAINE Encounter Details Date Type Department Care Team Description 06/01/2015 Office Visit [facility] [address] Denisse Sue, Chronic migraine Family Medicine [address] without aura without [address] status migrainosus, [address] [place], [place] [address] (Primary Dx) [address] [phone] Social History Tobacco Use Types Packs/Day Years [...] Where can you learn more? Go to Emulate/HDF and enter U690 in the search box. Current as of: April 15, 2014 Content Version: 107 ?? [id number] [employer]. 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 Home treatment has included Excedrin, ibuprofen, Imitrex [...] migrainosus documented in this encounter Care Teams Financial Analyst Accountant Relationship Specialty Start Date End Date Denisse Sue DO PCP - General 05/12/13 04/04/16 [address] [place] [address] documented as of this encounter
--- OUTSIDE RECORDS SUMMARY | 2021-10-05 15:26 | XMS_ITS | Encounter Summary ---
:1985 Author Organization [facility] Address [address] [place] [address] Care Team Providers Name Role Phone Denisse Sue DO Primary Care Provider Encounter Details Date Type Department Care Team Description 05/12/2013 Lab Visit [facility] [address] L aboratory Anemia [address] [facility] [place] [address] Social History Tobacco Use Types [...] - 05/12/2013 8:23 AM CDT Performed at [facility], [address] [place] [address] Denisse Sue DO LAB_1 Performing Organization Address City/State/ZIP Code Phon e Number HP CONVERSION documented in this encounter Visit Diagnoses Diagnosis Anemia Anemia, unspecified documented in this encounter Care Teams Loading Inspector Relationship Specialty Start Date End Date Denisse Sue DO PCP - General 05/12/13 2 [address] [place] [address] documented as of this encounter
--- OUTSIDE RECORDS SUMMARY | 2021-10-05 15:26 | XMS_ITS | Encounter Summary ---
:1985 Author Organization [facility] Address [address] [place] [address] Care Team Providers Name Role Phone Linette, Denisse Mane ZARAGOZA Primary Care Provider Reason for Visit Reason Comments Post-Op Check Encounter Details Date Type Department Care Team Description 06/21/2013 Office Visit [facility] [address] Elizabeth Hurtado toperative Podiatric MedSurg FAN Gilliam follow-up (Primary Dx) [address] [facility] [address] [facility] [place] [phone] (Wo rk) Social History Tobacco Use Types Packs/Day Years Used Date Smoking Tobacco: Never Assessed Sex Assigned at Date Recorded Not on file documented as of this encounter Progress Notes Elizabeth Hurtado DPM - 06/21/2013 8:33 AM CDT Progress Notes signed by Elizabeth Hurtado DPM at 06/22/131621 Author: Elizabeth Hurtado DPM Service: (none) Author Type: Physician Filed: 06/22/131621 Note Time: 06/21/132144 Status: Signed Corporate Intern: Elizabeth Hurtado DPM (Physician) NAME: ODESSA CHE MR#: [id number] CSN: [id number] AUTHENTICATING CLINICIAN: Elizabeth Hurtado DPM CONFIRM #: [id number] LOC: 439 CLINIC PROGRESS NOTE DATE OF VISIT: 06/21/2013 : 1985 SUBJECTIVE: Patient is a 27-year-old female who returns today, who is 3-1/2 weeks status post excision of ganglion cyst left foot/ankle with debridement of tibialis anterior tendon, where there is some superficialfraying of the tendon. She has been immobilized in a Cam walker now for the postop course. Overall, she is having some mild tenderness, but overall seems to be doing well. MEDICATIONS: Reviewed and updated in Epic. ALLERGIES: Reviewed and updated in [facility]. OBJECTIVE: Incision line is well healed. Centrally there is a small amount of superficial- appearing eschar. There is no tenderness with palpation to the area. Mild thickening along the tendon to be expected. No erythema. Minimal edema. ASSESSMENT: Three and half weeks status post excision of ganglion cyst and debridement of tibialis anterior tendon. PLAN: Reviewed pathology report which showed findings consistent with a ganglion cyst. We will have her work on range of motion of the right ankle, drawing the alphabet on her own, etc. She can do some scar tissue massage or use an cbra-isi-lwumwiq scar product such as a silicone gel product. In 2 weeks or so, she can gradually transfer to a regular shoe. No high-impact running or jumping activities for at least another month. Recheck with me in 1 month for reevaluation. SMS:MEDQ C: CONFIRM #: [id number] documented in this encounter Plan of Treatment Not on filedocumented as of this encounter Visit Diagnoses Diagnosis Postoperative follow-up - Primary Follow-up examination, following unspeci fied surgery documented in this encounter Care Teams Warehousing Technician Relationship Specialty Start Date End Date Denisse Sue DO PCP - General 05/12/13 04/04/16 [address] [place] [address] documented as of this encounter
--- OUTSIDE RECORDS SUMMARY | 2021-10-05 15:26 | XMS_ITS | Encounter Summary ---
:1985 Author Organization [facility] Address [address] [place] [address] Care Team Providers Name Role Phone Md MINA Leigh Primary Care Provider Reason for Visit Reason Comments Lab Draw Encounter Details Date Type Department Care Team Description 02/19/2012 Telephone [facility] Consuelo Lopez MD Lab Draw [address] [facility] [address] [place] [address] [place], [place] [address] (Wo rk) Social History Tobacco Use Types [...] by Nanette Bravo N.P. who has left [facility]. Also requested that pt call us back and let us know if plans on getting lab done. documented in this encounter Plan of Treatment Not on filedocumented as of this encounter Visit Diagnoses Not on filedocumented in this encounter Care Teams Speech Coach Relationship Specialty Start Date End Date Md Leigh MD PCP - General 05/26/10 05/11/13 [place] [address] documented as of this encounter
--- OUTSIDE RECORDS SUMMARY | 2021-10-05 15:26 | XMS_ITS | Encounter Summary ---
:1985 Author Organization [facility] Address [address] [place] [address] Care Team Providers Name Role Phone Md MINA Leigh Primary Care Provider Reason for Referral Specialty Diagnoses / Procedures Referred By Contact Refer red To Contact Barbara Gamino AP RN, PROTOTYPE ENGINEER MANAGER [address] [place], [place] [address] Referral ID Status Reason Start Date Expiration Date Visits Requ ested Visits Authorized S OPERATOR AUTOMATIC Reason for Visit Reason Comments Skin Check Encounter Details Date Type Department Care Team Description 01/29/2012 Procedure Visit [facility] [address] Karen Lester APRN , Skin Check Dermatology PROTOTYPE ENGINEER MANAGER [address] [facility] [address] [place], [place] [address] [address] [place], [place] [phone] (Wo rk) Social History Tobacco Use Types Packs/Day Years Used Date Smoking Tobacco: Never Assessed Sex Assigned at Date Recorded Not on file documented as of this encounter Progress Notes Karen Lester APRN, CNP - 01/29/2012 5:19 PM CST Progress Notes signed by JOHN Olmstead at 01/31/12 410 Author: JOHN Olmstead Service: (none) Author Type: Nurse Practitioner Filed: 01/31/12749 Note Time: 01/29/121718 Status: Signed Soap Maker: Karen Trevon V., ANP (Nurse Practitioner) NAME: ODESSA CHE MR#: [id number] CSN: [id number] AUTHENTICATING CLINICIAN: JOHN Burgos CONFIRM #: [id number] LOC: 427 CLINIC PROGRESS NOTE DATE OF VISIT: 01/29/2012 : 1985 SUBJECTIVE: The patient is a 26-year-old woman here for evaluation of a disagreeable odor that she smells in heraxilla. The patient has been seen in the past in Primary Care for hyperhidrosis. Does have a prescription antiperspirant Drysol which seems to help the sweating but not the odor. Did explain that the Drysol does not have deodorant in it which patient is aware of. She does use a separate deodorant but still has a smell. The patient tells me this started about 9 months ago. She is not certain if there is any inciting incident. Does not remember changing products, being sick, having any change in activities. Does not notice a smell elsewhere, groin, hands and feet, or anywhere else she sweats. Her good girlfriend tellsher that she cannot smell anything. No one else seems to be able to appreciate the odor. The patient is otherwise healthy. No major medical problems. Has been seen recently for an injury toher knee. Does have the hyperhidrosis ongoing issue in the axilla. Has a history of anemia but no major illnesses or other medical problems. No history of skin cancer. FAMILY HISTORY: No one in the family with any excessive sweating odors. No skin cancers in the family. Social. 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 Is not exposed to any irritants or chemicals. MEDICATIONS: Reviewed. ALLERGIES: Reviewed. OBJECTIVE: Patient is alert and oriented x3. In no acute distress. Has Johnson type 2 skin tone. Examination with palpation limited to head and neck, chest, back, arms, axilla. Axillae are within normal limits. No erythema and no scale. No papules, no pustules. There is a small amount of moisture consistent with history of hyperhidrosis. Cannot smell any unusual odor. The patient states she can smell the odor today. Remainder of exam within normal limits. ASSESSMENT: Unusual axillary odor. PLAN: 1. Discussed with the patient we do have complaints of this. There is some evidence that people can smell odor on their own skin that no one else can appreciate. She is comforted to know that no one else can smell this. 2. Reviewed option for overgrowth of bacteria that may cause some unusual order. The patient will use clindamycin lotion twice daily for the next month to see if this makes any change in what she is smelling. 3. Also discussed yeast overgrowth and could treat for that as well. Sometimes there is a reaction with different deodorants or antiperspirant, although she tells me she has adjusted these and not noted a change. 4. Did reassure her this appears benign and nothing worrisome. She will contact me if she has further concerns. NVR:MEDQ C: CONFIRM #: [id number] S OPERATOR AUTOMATIC Karen Lester APRN, CNP - 01/29/2012 5:16 PM CST This office note has been dictated. documented in this encounter Plan of Treatment Scheduled Referrals Name Type Priority Associated Diagnoses Order S chedule Dermatology Referral Routine Axillary odor Ordered: 01/28 Consult-Adult/Peds documented as of this encounter Visit Diagnoses Diagnosis Axillary odor - Primary Other specified disorder of sweat glands documented in this encounter Care Teams Vocational Placement Specialist Relationship Specialty Start Date End Date Md Leigh MD PCP - General 05/26/10 05/11/13 [place] [address] documented as of this encounter
--- OUTSIDE RECORDS SUMMARY | 2021-10-05 15:26 | XMS_ITS | Encounter Summary ---
:1985 Author Organization [employer] Address [address] [place] [address] Care Team Providers Name Role Phone Denisse Sue DO Primary Care Provider Reason for Visit Reason Comments Annual Exam Encounter Details Date Type Department Care Team Description 12/22/2013 [facility] Nicholas Kay, Routine gen eral medical examination at a health care facility (Primary Dx); Obstetrics/Gynecolog y DON GRANT Special screening examination for unspec ified chlamydial disease [address] [place], [place] [facility] [address] [place] [address] [place], [place] [phone] (Wo rk) Social History Tobacco Use Types [...] pending. I will forward your results through [employer], or call you if there are anyconcerns. In the past you have had problems with low iron causing anemia. Most recent hemoglobin was normal at12.2. Please contact me at [phone] if there is anything you need. Have a great year. GROWER documented in this encounter Progress Notes Nicholas [...] Past Surgical History Procedure Laterality Date ??? [place] tooth extraction Family History: Family History Problem [...] Order Specific Question: Ordering Provider? (Dr, Res, LAUNDRY HOUSEKEEPER, or PA Only) Answer: NICHOLAS KAY [[id number]] Patient Instructions It was good to meet [...] pending. I will forward your results through [employer], or call you if there are anyconcerns. In the past you have had problems with low iron causing anemia. Most recent hemoglobin was normal at12.2. Please contact me at [phone] if there is anything you need. Have a great year. Current Control: Condoms GROWER documented in this encounter Plan of Treatment [...] Component Value Ref Test Analysis Performed At [facility] gist Range Method Time Signature Source [...] disease documented in this encounter Care Teams Care Support Representative Relationship Specialty Start Date End Date Denisse Sue DO PCP - General 05/12/13 04/04/16 [address] [place] [address] documented as of this encounter
--- OUTSIDE RECORDS SUMMARY | 2021-10-05 15:26 | XMS_ITS | Encounter Summary ---
:1985 Author Organization [facility] Address [address] [place] [address] Care Team Providers Name Role Phone Denisse Sue DO Primary Care Provider Reason for Visit Reason Comments Contraception Encounter Details Date Type Department Care Team Description 09/26/2014 [facility] Nanette Kay, Other bret al Obstetrics/Gynecolog DON GRANT counseling and advice y [address] for contraceptive [address] [facility] 5th Floor management ([place], [place] Dx ) [phone] (Wo rk) Social History Tobacco Use Types [...] cycle of pills, please contact me at [phone] or through [employer] to review options. Take care Kimberley. documented [...] Past Surgical History Procedure Laterality Date ??? [place] tooth extraction History Social History ??? Marital [...] cycle of pills, please contact me at [phone] or through [employer] to review options. Take care Kimberley. The patient was discharged ambulatory and in stable condition. documented in this encounter Plan of Treatment Not on filedocumented as of this encounter Visit Diagnoses Diagnosis Other general counseling and advice for contraceptive management - Primary documented in this encounter Care Teams Middleware Developer Relationship Specialty Start Date End Date Denisse Sue DO PCP - General 05/12/13 04/04/16 [address] [place] [address] documented as of this encounter
--- OUTSIDE RECORDS SUMMARY | 2021-10-05 15:26 | XMS_ITS | Encounter Summary ---
:1985 Author Organization [facility] Address [address] [place] [address] Care Team Providers Name Role Phone Md MINA Leigh Primary Care Provider Reason for Visit Reason Comments Annual Exam Encounter Details Date Type Department Care Team Description 07/30/2012 Office Visit [facility] [address] Nicholas Kay, Routine general medical examination at a health care facility (Primary Dx); Obstetrics/Gynecolog y CITY DISPATCHER, HOTEL VALET ATTENDANT Screening for malignant neoplasm of the cervix; [address] [place] [address] Special screening examination for unspec ified chlamydial disease; Blvd[address] [facility] 5th Floor Screening for iron deficiency anemia; [place], [place] reening for lipoid disorders; [phone] Need for Tdap vaccination; [phone] (Wo rk) Special screening examination for other [...] AM CDT Thank you for enrolling in [employer]. Please follow the instructions below to securely access your online medical record. [employer] allows you to send messages to your doctor, view your test results, renewyour prescriptions, schedule appointments, and more. How Do I Sign Up? 1. In your Internet browser, go to: [email or web address] 2. Click on the Sign Up Now link in the Sign In box. You will see the New Member Sign Up page. 3. Enter your [employer] Access Code exactly as it appears below. You will not need to use this code after you???ve completed the sign-up process. If you do not sign up before the expiration date, you must request a new code. [employer] Access Code: [email or web address] Expires: 08/29/2012 11:05 AM 4. Enter your Social Security Number (xxx-xx-xxxx) and Date of (mm/dd/yyyy) as indicated and click Submit. You will be taken to the next sign- up page. 5. Create a [employer] ID. This will be your [employer] login ID and cannot be changed, so think of one that is secure and easy to remember. 6. Create a [employer] password. You can change your password at any time. 7. Enter your Password Reset Question and Answer. This can be used at a later time if you forget your password. 8. Enter your e-mail address. You will receive e-mail notification when new information is availablein [employer]. 9. Click Sign Up. You can now view your medical record. Additional Information If you have questions, you can call [phone] to talk to our [employer] staff. Remember, [employer] is NOT to be used for urgent [...] they are available. Please contact me at [phone] if questions. documented in this encounter Progress [...] Past Surgical History Procedure Laterality Date ??? [place] tooth extraction Family History: Family History Problem [...] Order Specific Question: Ordering Provider? (, Miladys, TANK FARM GAUGER, or PA Only) Answer: NICHOLAS KAY [[id number]] ??? Tdap (BOOSTRIX) ??? Pap Smear Screening [PAPL] Order Specific Question: Ordering Provider? (Miladys [place], TANK FARM GAUGER, or PA Only) Answer: NICHOLAS KAY [[id number]] Order Specific Question: Is the required paper requisition completed? Answer: Yes ??? Complete Blood Count - No Diff [ABC] Standing Status: Future Number of Occurrences: 1 Standing Expiration Date: 07/30/2013 Order Specific Question: Ordering Provider? (Miladys [place]monte, TANK FARM GAUGER, or PA Only) Answer: NICHOLAS KAY [[id number]] ??? Ferritin [ISACC] Standing Status: Future Number of Occurrences: 1 Standing Expiration Date: 07/30/2013 Order Specific Question: Ordering Provider? (Miladys [place], TANK FARM GAUGER, or PA Only) Answer: NICHOLAS KAY [[id number]] ? ? Cholesterol, Total & HDL [CHS] Standing Status: Future Number of Occurrences: 1 Standing Expiration Date: 07/30/2013 Order Specific Question: Ordering Provider? (Miladys [place]monte, TANK FARM GAUGER, or PA Only) Answer: NICHOLAS KAY [[id number]] ??? HIV Antibody [HIV] Standing Status: Future Number of Occurrences: 1 Standing Expiration Date: 07/30/2013 Order Specific Question: Ordering Provider? (Miladys [place]monte, TANK FARM GAUGER, or PA Only) Answer: NICHOLAS KAY [[id number]] ??? Treponemal Antibody Standing Status: Future Number of Occurrences: 1 Standing Expiration Date: 07/30/2013 Order Specific Question: Ordering Provider? (Miladys [place], TANK FARM GAUGER, or PA Only) Answer: NICHOLAS KAY [[id number]] ??? Hepatitis Bs Antigen [HBAG] Standing Status: Future Number of Occurrences: 1 Standing Expiration Date: 07/30/2013 Order Specific Question: Ordering Provider? (, Res, TANK FARM GAUGER, or PA Only) Answer: NICHOLAS KAY [[id number]] ??? Hepatitis C Antibody [HCAB] Standing Status: Future Number of Occurrences: 1 Standing Expiration Date: 07/30/2013 Order Specific Question: Ordering Provider? (, Res, TANK FARM GAUGER, or PA Only) Answer: NICHOLAS KAY [[id number]] ??? Urinalysis Routine Hold Culture (URH) Standing Status: Future Number of Occurrences: 1 Standing Expiration Date: 07/30/2013 Order Specific Question: Ordering Provider? (, Res, TANK FARM GAUGER, or PA Only) Answer: NICHOLAS KAY [[id number]] Order Specific Question: Urine Collection Type Answer: Urine:clean catch ??? Pap Smear Patient Instructions Thank you for enrolling in [employer]. Please follow the instructions below to securely access your online medical record. [employer] allows you to send messages to your doctor, view your test results, renewyour prescriptions, schedule appointments, and more. How Do I Sign Up? 1. In your Internet browser, go to: [email or web address] 2. Click on the Sign Up Now link in the Sign In box. You will see the New Member Sign Up page. 3. Enter your [employer] Access Code exactly as it appears below. You will not need to use this code after you???ve completed the sign-up process. If you do not sign up before the expiration date, you must request a new code. [employer] Access Code: [email or web address] Expires: 08/29/2012 11:05 AM 4. Enter your Social Security Number (xxx-xx-xxxx) and Date of (mm/dd/yyyy) as indicated and click Submit. You will be taken to the next sign- up page. 5. Create a [employer] ID. This will be your [employer] login ID and cannot be changed, so think of one that is secure and easy to remember. 6. Create a [employer] password. You can change your password at any time. 7. Enter your Password Reset Question and Answer. This can be used at a later time if you forget your password. 8. Enter your e-mail address. You will receive e-mail notification when new information is availablein [employer]. 9. Click Sign Up. You can now view your medical record. Additional Information If you have questions, you can call [phone] to talk to our [employer] staff. Remember, [employer] is NOT to be used for urgent [...] they are available. Please contact me at [phone] if questions. Current Control:N/A documented in this [...] Component Value Ref [facility] Range Method Time Signature Source Endocervical [...] Kay APRN, CNP LAB_1 Performing Organization Address [facility] Phon e Number HP CONVERSION Pap Smear (07/30/2012 12:02 PM CDT) Specimen (Source) Anatomical Collection Method Collection Time Re ceived Time Location / / Volume Laterality 07/30/2012 12:02 PM CDT Narrative HP CONVERSION - 08/04/2012 3:57 PM CDT FINAL GYNECOLOGICAL CYTOLOGY REPORT Pathology #: [id number] ?Date Obtained: 07/30/2012 ? Date Received: 07/31/2012 [...] Kay APRN, CNP LAB_1 Performing Organization Address [facility] Phon e Number HP CONVERSION Pap Smear Screening (07/30/2012 12:02 PM CDT) P athologist Signature PAP Routine Collected HP CONVERSION Specimen Anatomical Collection Method Collection Time Receive d Time (Source) Location / / Volume Laterality 07/30/2012 12:02 07/31/2012 5:33 PM CDT AM CDT Nicholas Kay APRN, CNP LAB_1 Performing Organization Address [facility] Phon e Number HP CONVERSION documented in this encounter Visit Diagnoses Diagnosis Routine general medical examination at a health care facility - Primary Screening for malignant neoplasm of the cervix Special screening examination for unspec ified chlamydial disease Screening for iron deficiency anemia Screening for lipoid disorders Need for Tdap vaccination Need for prophylactic vaccination with c ombined lbmikfeoal-adzaxym-vmooyiifh (DTP) vaccine Special screening examination for other specified viral diseases Bloating Flatulence, eructation, and gas pain Urinary urgency Urgency of urination documented in this encounter Care Teams Fashion Styling Intern Relationship Specialty Start Date End Date Md Leigh MD PCP - General 05/26/10 05/11/13 [place] [address] documented as of this encounter
--- OUTSIDE RECORDS SUMMARY | 2021-10-05 15:26 | XMS_ITS | Encounter Summary ---
:1985 Author Organization [facility] Address [address] [place] [address] Care Team Providers Name Role Phone Md MINA Leigh Primary Care Provider Reason for Visit Reason Comments RESULTS, TEST Encounter Details Date Type Department Care Team Description 04/07/2013 Office Visit [facility] [address] Elizabeth Hurtado Loc alized superficial Podiatric MedSurg M, DPM swelling, mass, or [address] (Primary Dx) [place] [address] [phone] (Wo rk) Social History Tobacco Use Types [...] 04/14/1358 Note Time: 04/07/13 1032 Status: Signed Coin Dealer: Elizabeth Hurtado DPM (Physician) NAME: ODESSA CHE MR#: [id number] CSN: [id number] AUTHENTICATING CLINICIAN: Elizabeth Hurtado DPM CONFIRM #: [id number] LOC: 439 CLINIC PROGRESS NOTE DATE OF VISIT: 04/07/2013 : 1985 SUBJECTIVE: The patient is a 27-year-old female seen today to discuss MRI results of her left foot. She has a palpable soft tissue mass that is somewhat bothersome when she runs where her shoe rubs. It is not painful for her currently. MEDICATIONS: Reviewed and updated in [employer]. ALLERGIES: No known drug allergies. REVIEW OF [...] schedule procedure at her convenience with the transitional care liaison. She will need a preoperative history and physical 1 month prior to procedure. SMS:MEDQ C: CONFIRM #: [id number] NEERING LECTURER documented in this encounter Plan of Treatment Not on filedocumented as of this encounter Visit Diagnoses Diagnosis Localized superficial swelling, mass, or lump - Primary documented in this encounter Care Teams Chief Physical Therapist Relationship Specialty Start Date End Date Md Lu, PCP - General 05/26/10 05/11/13 [place] [address] documented as of this encounter
--- OUTSIDE RECORDS SUMMARY | 2021-10-05 15:26 | XMS_ITS | Encounter Summary ---
:1985 Author Organization [facility] Address [address] [place] [address] Care Team Providers Name Role Phone Denisse Sue DO Primary Care Provider Reason for Visit Reason Onset Date Comments Refill 12/26/2015 June Encounter Details Date Type Department Care Team Description 12/26/2015 [facility]ill [facility] Nicholas Kay, Derick PRN, RESEARCH PROJECT MANAGER Refill () Obstetrics/Gynecolog y [address] [place] [address] [place], [place] [address] (Wo rk) Social History Tobacco Use Types [...] Department Center 03/04/2016 9:30 AM Nicholas Kay FULL CHARGE BOOKKEEPER, RESEARCH PROJECT MANAGER [facility] Requested Prescriptions Signed [...] tablet [Nicholas Kay APRN, CNP] Preferred pharmacy: [address] Comment: Hi - I have an [...] on filedocumented in this encounter Care Teams Gunner'S Mate M Relationship Specialty Start Date End Date Denisse Sue DO PCP - General 05/12/13 04/04/16 [address] [place] [address] documented as of this encounter
--- OUTSIDE RECORDS SUMMARY | 2021-10-05 15:26 | XMS_ITS | Encounter Summary ---
:1985 Author Organization [facility] Address [address] [place] [address] Care Team Providers Name Role Phone Md MINA Leigh Primary Care Provider Encounter Details Date Type Department Care Team Description 07/30/2012 Lab Visit [facility] 38[address] Screening for iron deficiency anemia; Laboratory Screening for lipoid disorde rs; [address] Special screening examinatio n for other specified viral diseases; [place] [address] Urinary urgency [phone] Social History Tobacco Use Types Packs/Day Years [...] MICRO/CULTURE IF POS (07/30/2012 12:11 PM CDT) [facility] F[facility] Method Time Signature Urine Type Urine:clean HP [...] U Specific 1.010 1.005 - HP CONVERSION Palmer 1.030 Urobilinogen Negative Negative HP CONVERSION Urine Eu/dL Specimen Anatomical Collection Method Collection Time Receive d Time (Source) Location / / Volume Laterality Urine: 07/30/2012 12:11 07/30/2012 PM CDT 12:11 PM CDT Narrative HP CONVERSION - 07/30/2012 12:31 PM CDT Performed at [facility], [address] [place] [address] Nanette Kay APRN, CNP LAB_1 Performing Organization Address [facility] Code Phon e Number HP CONVERSION Hepatitis C Antibody, with Reflex (07/30/2012 12:11 PM CDT) [facility] [employer] Method Time Signature Hepatitis C Non-React Non-Reacti HP CONVERSION Antibody ve Specimen Anatomical Collection Method Collection Time Receive d Time (Source) Location / / Volume Laterality 07/30/2012 12:11 07/30/2012 1:32 PM CDT PM CDT Nanette Kay APRN, CNP LAB_1 Performing Organization Address [facility] Phon e Number HP CONVERSION Hep B [...] CONVERSION Treponema Screen (07/30/2012 12:11 PM CDT) [facility] gist Method Time Signature Treponema Non Reactive Non Reactive HP CONVERSION Screen Specimen Anatomical Collection Method Collection Time Receive d Time (Source) Location / / Volume Laterality 07/30/2012 12:11 07/30/2012 1:33 PM CDT PM CDT Nanette Kay APRN, CNP LAB_1 Performing Organization Address [facility] Code Phon e Number HP CONVERSION HIV ANTIBODY (07/30/2012 12:11 PM CDT) athologist Signature HIV 1/HIV 2 Non-React Non-Reacti HP CONVERSION ve Specimen Anatomical Collection Method Collection Time Receive d Time (Source) Location / / Volume Laterality 07/30/2012 12:11 07/30/2012 1:32 PM CDT PM CDT Nanette Kay APRN, CNP LAB_1 Performing Organization Address [facility] Code Phon e Number HP [...] - 07/30/2012 12:43 PM CDT Performed at [facility], [address] [place] [address] Nanette Kay APRN, CNP LAB_1 Performing Organization [...] Kay APRN, CNP LAB_1 Performing Organization Address [facility] Phon e Number HP CONVERSION (ABNORMAL) Hemogram/Plts (07/30/2012 12:11 PM CDT) [facility] gist Method Time Signature White Blood [...] - 07/30/2012 12:22 PM CDT Performed at [facility], [address] [place] [address] Nanette Kay APRN, CNP LAB_1 Performing Organization Address [facility] Phon e Number HP CONVERSION documented in this encounter Visit Diagnoses Diagnosis Screening for iron deficiency anemia Screening for lipoid disorders Special screening examination for other specified viral diseases Urinary urgency Urgency of urination documented in this encounter Care Teams Supervisor Cold Rolling Relationship Specialty Start Date End Date Md Leigh MD PCP - General 05/26/10 05/11/13 [place] [address] documented as of this encounter
--- OUTSIDE RECORDS SUMMARY | 2021-10-05 15:26 | XMS_ITS | Encounter Summary ---
:1985 Author Organization [facility] Address [address] [place] [address] Care Team Providers Name Role Phone Md MINA Leigh Primary Care Provider Reason for Visit Reason Comments Follow-up Encounter Details Date Type Department Care Team Description 12/13/2011 Office Visit [facility] [address] Gamino Axil lary odor Family Medicine BRIQUETTE MACHINE OPERATOR, [employer] (Primary Dx) [address] [facility] [address] [place] [address] [phone] Social History Tobacco Use Types Packs/Day Years [...] glands documented in this encounter Care Teams Wool Hat Flanger Relationship Specialty Start Date End Date Md Leigh MD PCP - General 05/26/10 05/11/13 [place] [address] documented as of this encounter
--- OUTSIDE RECORDS SUMMARY | 2021-10-05 15:26 | XMS_ITS | Encounter Summary ---
:1985 Author Organization [facility] Address [address] [place] [address] Care Team Providers Name Role Phone Denisse Sue Mane DO Primary Care Provider Reason for Visit Reason Comments Annual Exam Encounter Details Date Type Department Care Team Description 03/04/2016 [facility] Nanette Kay Well female exam with routine gynecological exam (Primary Dx); Obstetrics/Gynecolog NSH TEACHER, NUDE MODEL Oral contraceptive pill surveillance; y [address] Migraine without aura and with status mi grainosus, not intractable [address] [facility] 5th [place] [phone] (Wo rk) Social History Tobacco Use Types [...] Comments Blood Pressure 120/77 03/04/2016 9:31 AM KENNEL OPERATOR Pulse 78 03/04/2016 9:31 AM KENNEL OPERATOR Temperature - - Respiratory Rate - - Oxygen Saturation - - Inhaled Oxygen Concentration - - Weight 53.4 kg (117 lb 11.2 oz) 03/04/2016 9:31 AM KENNEL OPERATOR Height 168.3 cm (5' 6.25) 03/04/2016 9:31 AM KENNEL OPERATOR Body Mass Index 18.85 03/04/2016 9:31 AM KENNEL OPERATOR documented in this encounter Patient Instructions Patient InstructionsNanette Kay APRN, CNP - 03/04/2016 9:54 AM CST Thank you for coming in today Kimberley for your Well Visit. No pap smear was indicated, you had a normal pap smear/negative HPV. Your next pap smear is due in 2019. Yearly physical exams are still recommended. I recommend you check [employer]- Find A Provider- to identify another M.D. [...] you have additional questions or concerns at [phone] or [employer]ola. EL OPERATOR documented in this encounter Progress Notes Nanette Kay APRN, CNP - 03/04/2016 10:01 AM CST Subjective: Simona Chu is a partnered 30 y.o. female with [...] Past Surgical History Procedure Laterality Date ??? [place] teeth extraction ??? Foot surgery 2012 Family [...] are still recommended. I recommend you check [employer]- Find A Provider- to identify another M.D. [...] you have additional questions or concerns at [phone] or [employer]ola. Current Control:03/15 EL OPERATOR documented in this encounter Plan of [...] migrainosus documented in this encounter Care Teams Movie Machine Operator Relationship Specialty Start Date End Date Denisse Sue DO PCP - General 05/12/13 04/04/16 [address] [place], [place] [id number] documented as of this encounter
--- OUTSIDE RECORDS SUMMARY | 2021-10-05 15:26 | XMS_ITS | Encounter Summary ---
:1985 Author Organization [facility] Address [address] [place] [address] Care Team Providers Name Role Phone Md MINA Leigh Primary Care Provider Reason for Referral Specialty Diagnoses / Procedures Referred By Contact Refer red To Contact Laverne Polanco MD [address] [facility] [address] [place] [address] Referral ID Status Reason Start Date Expiration Date Visits Requ ested Visits Authorized Reason for Visit Reason Comments CONSULT Encounter Details Date Type Department Care Team Description 08/27/2011 Surgical Consult [facility] Angelica Thomas, [facility] MD Elliott (Primary Dx) [address] [facility] [place] [address] [phone] Social History Tobacco Use Types Packs/Day Years [...] 09/03/11816 Note Time: 08/27/11 1641 Status: Signed Interlibrary Loan Services Librarian: Angelica Thomas MD (Physician) NAME: ODESSA CHE VISIT: [id number] DICTATING CLINICIAN: ANGELICA THOMAS MD JOB: [id number] Med JOB: [id number] LOC: 3711 CLINIC PROGRESS NOTE DATE OF [...] 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 She is a nonsmoker. Drinks alcohol [...] she is doing well. We have discussed rat exterminator outcome, possible return to running date as [...] patella documented in this encounter Care Teams Mechanical Applications Engineer Relationship Specialty Start Date End Date Md Leigh MD PCP - General 05/26/10 05/11/13 [place] [address] documented as of this encounter
--- OUTSIDE RECORDS SUMMARY | 2021-10-05 15:26 | XMS_ITS | Encounter Summary ---
:1985 Author Organization [facility] Address [address] [place] [address] Care Team Providers Name Role Phone Denisse Sue DO Primary Care Provider Reason for Visit Reason Comments Surgery Orders Encounter Details Date Type Department Care Team Description 05/17/2013 Notes/Orders [facility] [address]urtado, Podiatric MedSurg DPM [address] [place] [id number] [phone] Social History Tobacco Use Types Packs/Day Years Used Date Smoking Tobacco: Never Assessed Sex Assigned at Date Recorded Not on file documented as of this encounter Plan of Treatment Not on filedocumented as of this encounter Visit Diagnoses Not on filedocumented in this encounter Care Teams Jockey Agent Relationship Specialty Start Date End Date Denisse Sue DO PCP - General 05/12/13 2 [address] [place], [place] [id number] documented as of this encounter
--- OUTSIDE RECORDS SUMMARY | 2021-10-05 15:26 | XMS_ITS | Encounter Summary ---
:1985 Author Organization [facility] Address [address] [place] [address] Care Team Providers Name Role Phone Md MINA Leigh Primary Care Provider Reason for Visit Reason Comments MASS Encounter Details Date Type Department Care Team Description 03/31/2013 Initial Consult [facility] 3900 Elizabeth Hurtado Left ankle pain (Primary Dx); Podiatric MedSurrossy Gilliam DPM Localized superficial swelling, mass, or lump 3900 [facility] [address] [facility] [place] [address] [phone] Social History Tobacco Use Types Packs/Day Years Used Date Smoking Tobacco: Never Assessed Sex Assigned at Date Recorded Not on file documented as of this encounter Progress Notes Elizabeth Hurtado DPM - 03/31/2013 1:08 PM CST Progress Notes signed by Elizabeth Hurtado DPM at 04/05/13 160 Author: Elizabeth Hurtado DPM Service: (none) Author Type: Physician Filed: 04/05/13 1605 Note Time: 03/31/13 1435 Status: Signed Primary Montessori Teacher: Elizabeth Hurtado DPM (Physician) NAME: ODESSA CHE MR#: [id number] CSN: [id number] AUTHENTICATING CLINICIAN: Elizabeth Hurtado DPM CONFIRM #: [id number] LOC: 439 CLINIC PROGRESS NOTE DATE OF [...] hyperhidrosis. CURRENT MEDICATIONS: Reviewed and updated in [facility]. ALLERGIES: No known drug allergies. FAMILY HISTORY: [...] to discuss results. SMS:MEDQ C: CONFIRM #: [id number] IN REPAIRER documented in this encounter Plan of Treatment Not on filedocumented as of this encounter Visit Diagnoses Diagnosis Left ankle pain - Primary Pain in joint, ankle and foot Localized superficial swelling, mass, or lump documented in this encounter Care Teams Acid Etch Operator Relationship Specialty Start Date End Date Md Leigh MD PCP - General 05/26/10 05/11/13 [place] [address] documented as of this encounter
--- OUTSIDE RECORDS SUMMARY | 2021-10-05 15:26 | XMS_ITS | Encounter Summary ---
:1985 Author [facility] Address [address] [place] [address] Care Team Providers Name Role Phone Denisse Sue Primary Care Provider Reason for Visit Reason Comments Post-Op Check Encounter Details Date Type Department Care Team Description 05/31/2013 Office Visit [facility] 3900 Nurse, P3900 Pod Local ized superficial Podiatric MedSurg swelling, mass, or lump [address] (Primary Dx) [place] [address] Social History Tobacco Use Types Packs/Day Years [...] number to call with any concerns is [phone] documented in this encounter Progress Notes Priscilla [...] Primary documented in this encounter Care Teams Shrimp Picker Relationship Specialty Start Date End Date Denisse Sue DO PCP - General 05/12/13 04/04/16 [address] [place] [address] documented as of this encounter
--- OUTSIDE RECORDS SUMMARY | 2021-10-05 15:26 | XMS_ITS | Encounter Summary ---
:1985 Author Organization [email or web address] Address [address] [place] [address] Care Team Providers Name Role Phone Jie Farah DO Primary Care Provider Reason for Visit Reason Comments MEDICATION CHECK Encounter Details Date Type Department Care Team Description 05/14/2016 Office Visit [facility] 38[address] Jie Farah, [place] graine without aura Family Medicine DO and without status [address] francisco rainosus, not [address] intractable (Primary [place], [place] Dx ) [phone] (Wo rk) Social History Tobacco Use Types [...] Body Mass Index 19.35 03/04/2016 9:31 AM COMMUNITY LIVING INSTRUCTOR documented in this encounter Progress Notes [...] migrainosus documented in this encounter Care Teams Meat Specialist Relationship Specialty Start Date End Date Jie Farah DO PCP - General Family Practice 04/05/16 [address] [place] [address] documented as of this encounter
--- OUTSIDE RECORDS SUMMARY | 2021-10-05 15:26 | XMS_ITS | Encounter Summary ---
:1985 Author [facility] Address [address] [place] [address] Care Team Providers Name Role Phone Denisse Sue Primary Care Provider Reason for Visit Reason Comments Post-Op Check Encounter Details Date Type Department Care Team Description 06/14/2013 Office Visit [facility] 3900 Nurse, P3900 Pod Local ized superficial Podiatric MedSurg swelling, mass, or lump [address] (Primary Dx) [place] [address] Social History Tobacco Use Types Packs/Day Years [...] number to call with any concerns is [phone] documented in this encounter Progress Notes Priscilla [...] Primary documented in this encounter Care Teams Software Quality Specialist Relationship Specialty Start Date End Date Denisse Sue DO PCP - General 05/12/13 04/04/16 [address] [place], [place] [address] documented as of this encounter
--- OUTSIDE RECORDS SUMMARY | 2021-10-05 15:26 | XMS_ITS | Encounter Summary ---
:1985 Author Organization [facility] Address [address] [place] [address] Care Team Providers Name Role Phone Denisse Sue Primary Care Provider Reason for Visit Reason Comments Post-Op Check Encounter Details Date Type Department Care Team Description 06/07/2013 Office Visit [facility] 3900 Nurse, P3900 Pod Local ized superficial Podiatric MedSurg swelling, mass, or lump [address] (Primary Dx) [place] [address] Social History Tobacco Use Types Packs/Day Years [...] number to call with any concerns is [phone] documented in this encounter Progress Notes Priscilla [...] Primary documented in this encounter Care Teams Call Center Professional Relationship Specialty Start Date End Date Denisse Sue DO PCP - General 05/12/13 04/04/16 [address] [place] [address] documented as of this encounter
--- OUTSIDE RECORDS SUMMARY | 2021-10-05 15:26 | XMS_ITS | Encounter Summary ---
:1985 Author Organization [facility] Address [address] [place] [address] Care Team Providers Name Role Phone Denisse Sue Primary Care Provider Reason for Visit Reason Comments Refill Encounter Details Date Type Department Care Team Description 05/19/2015 [facility]ill [facility] Nanette Kay A PRN, CNP Refill Obstetrics/Gynecolog y [address] [facility] 5th [place] [address] [place], [place] [phone] (Wo rk) Social History Tobacco Use Types [...] to switch pharmacies [facility] [place] and they will call [facility] [address] (which is where your prescription was sent) and they will transfer it. Thank you! Loulou Snyder LIME PULLER Triage ----- Message ----- From: ODESSA CHE Sent: 05/19/2015 6:56 AM CDT To: Nanette Kay APRN, CNP Subject: Medication Renewal Request Original authorizing provider: Nanette Kay APRN, INCINERATOR PLANT GENERAL SUPERVISOR Odessa Che would like a refill of the following medications: norethindrone-ethinyl estradiol (MICROGESTIN FE 03/15, ,) 1 mg-20 mcg (21)/75 mg (7) per tablet [Nanette Kay APRN, DON] Preferred pharmacy: [facility] [address] [place] [address] [facility] Comment: documented in this encounter Plan of Treatment Not on filedocumented as of this encounter Visit Diagnoses Not on filedocumented in this encounter Care Teams Coal Equipment Operator Relationship Specialty Start Date End Date Denisse Sue DO PCP - General 05/12/13 04/04/16 [address] [place], [place] [address] documented as of this encounter
--- OUTSIDE RECORDS SUMMARY | 2021-10-05 15:26 | XMS_ITS | Encounter Summary ---
:1985 Author Organization [email or web address] Address [address] [place] [address] Care Team Providers Name Role Phone Linette, Denisse Mane DO Primary Care Provider Reason for Visit Reason Comments Dysuria Encounter Details Date Type Department Care Team Description 09/25/2014 Hospital Encounter [facility] Yancy Isaac, Dysuria [address] [place] [address] [facility] [address] [facility] [phone] [place], [place] [address] (Wo rk) Social History Tobacco Use Types Packs/Day Years Used Date Smoking Tobacco: Never Assessed Sex Assigned at Date Recorded Not on file documented as of this encounter Last Filed Vital Signs Vital Sign Reading Time Taken Comments Blood Pressure 109/65 09/25/2014 9:05 AM CDT Pulse 69 09/25/2014 9:05 AM CDT Temperature 36.8 ??C (98.2 ??F) 09/25/2014 9:05 AM CDT Respiratory Rate 18 09/25/2014 9:05 AM CDT Oxygen Saturation 100% 09/25/2014 9:05 AM CDT Inhaled Oxygen Concentration - - Weight - - Height - - Body Mass Index - - documented in this encounter Medications at Time of Discharge Medication Sig Dispensed Refills Start Date End Date nitrofurantoin monohydrate Take 1 capsule by 10 capsule 0 09/30/2014 macrocrystal (aka mouth 2 times MACROBID) capsule daily for 5 days. documented as of this encounter Progress Notes Alexandra Toscano RN - 09/25/2014 9:30 AM CDT Quick Note: prelim, on Bactrim documented in this encounter ED Notes Yancy Isaac MD - 09/25/2014 9:30 AM CDT SUBJECTIVE: 28 y.o. year old female who presents with dysuria at the end of urination for several days. She denies any vaginal itching or discharge before the onset of her menses. She does not believe she is . She states she is not at risk for std. Perhaps one prior UTI many years ago. No fever. No flank pain. ALLERGIES: Review of patient's allergies indicates no known allergies. MEDICATIONS: nitrofurantoin (macrocrystal-monohydrate) Patient Active Problem List Diagnosis ? ? Control Counseling & Rx ??? Hyperhidrosis ROS: Negative other than what was cited above. OBJECTIVE: VITALS SIGNS: BP 109/65 mmHg Pulse 69 Temp(Src) 36.8 ??C (98.2 ??F) (Oral) Resp 18 SpO2 100% General: Well hydrated, appears healthy, alert No cva tenderness. Urinalysis Routine(Micro If Pos): (Final result) Abnormal Component (Lab Inquiry) Collection Time Result Time Urine Type Turbidity U Bili Blood Urine Glucose, Qualitative U 09/25/14 08:54:00 09/25/14 09:09:00 Urine:clean cat Clear Negative Large (A) Negative Collection Time Result Time Ketones Leukocyte Esterase Urine Nitrite Urine pH Urine Protein Urine 09/25/14 08:54:00 09/25/14 09:09:00 Negative Negative Negative 7.0 100 (A) Collection Time Result Time U Specific [place] Urobilinogen Urine 09/25/14 08:54:00 09/25/14 09:09:00 1.020 Negative Final result Narrative: Performed at [facility], [address] [place] [id number] Urine Microscopic: (Final result) Abnormal Component (Lab Inquiry) Collection Time Result Time Urine WBC Urine RBC Bacteria Urine Epithelial Cells Transitional Epithelial Cells 09/25/14 08:54:00 09/25/14 09:11:00 5-9 (A) 50-100 (A) Moderate (A) Occasional Occasional Assessment: The encounter diagnosis was Dysuria. PLAN: Discharge Medication List as of 09/25/2014 9:29 AM START taking these medications Details nitrofurantoin, macrocrystal-monohydrate, (MACROBID) 100 mg capsule Take 1 capsule by mouth 2 times daily for 5 days.Disp-10 capsule, R-0, Normal Many bacteria with transitional epithelial cells supports UTI - the blood is likely from her currentmenses - she acknowledges the sample was contaminated with some menstrual blood. Will culture. UTI information provided. The patient was discharged ambulatory and in stable condition. documented in this encounter Miscellaneous Notes Miscellaneous - 09/25/2014 9:30 AM CDTNotes Recorded by Yancy Isaac MD on 09/27/2014 at 6:45 Albina macrobid - UTI confirmed and sensitive to med.------Notes Recorded by Alexandra Toscano RN on 09/26/2014 at 9:41 AMprelim, on Bactrim Medication History - Bob Saavedra MD - 09/25/2014 9:30 AM CDT INPATIENT MEDS Encounter Date: 09/25/14 nitrofurantoin, macrocrystal-monohydrate, (MACROBID) 100 mg capsule Start Date:09/25/14, End Date:09/30/14, Frequency:2 TIMES DAILY *No Administrations Recorded ED AVS Snapshot - Bob Saavedra MD - 09/25/2014 9:30 AM CDT Images from the original note were not included. [facility] [address] [facility] [address] [place] [id number] Dept: [phone] [email or web address] Simona Che 09/25/2014 8:54 AM Hospital Encounter Description: Female : 1985 Department: [facility] Dept Thank you for choosing [facility] for your health care visit with Yancy Isaac MD. We are happy to care for you and provide this summary of your visit. Your primary laboratory animal care veterinarian is currently listed as Denisse Sue DO (General). HERE IS WHAT YOU NEED TO KNOW To learn how you can take steps to stay as healthy as you can be visit [email or web address] Discharge Instructions Painful Urination (Dysuria): After Your Visit Your Care Instructions Burning pain with urination (dysuria) is a common symptom of a urinary tract infection or other urinary problems. The bladder may become inflamed. This can cause pain when the bladder fills and empties. You may also feel pain if the tube that carries urine from the bladder to the outside of the body (urethra) gets irritated or infected. Sexually transmitted infections (STIs) also may cause pain when you urinate. Sometimes the pain can be caused by things other than an infection. The urethra can be irritated by soaps, perfumes, or foreign objects in the urethra. Kidney stones can cause pain when they pass through the urethra. The cause may be hard to find. You may need tests. Treatment for painful urination depends on the cause. Follow-up care is a wise part of your treatment and safety. Be sure to make and go to all appointments, and call your doctor if you are having problems. It's also a good idea to know your test results and keep a list of the medicines you take. How can you care for yourself at home? ?? Drink extra water and juices such as cranberry and blueberry juices for the next day or two. Thiswill help make the urine less concentrated. And it may help wash out any bacteria that may be causing an infection. (If you have kidney, heart, or liver disease and have to limit fluids, talk with yourdoctor before you increase the amount of fluids you drink.) ?? Avoid drinks that are carbonated or have caffeine. They can irritate the bladder. ?? Urinate often. Try to empty your bladder each time. For women: ?? Urinate right after you have sex. ?? After going to the bathroom, wipe from front to back. ?? Avoid douches, bubble baths, and feminine hygiene sprays. And avoid other feminine hygiene products that have deodorants. When should you call for help? Call your doctor now or seek immediate medical care if: ?? You have new symptoms, such as fever, nausea, or vomiting. ?? You have new or worse symptoms of a urinary problem. For example: ?? You have blood or pus in your urine. ?? You have chills or body aches. ?? It hurts worse to urinate. ?? You have groin or belly pain. ?? You have pain in your back just below your rib cage (the flank area). Watch closely for changes in your health, and be sure to contact your doctor if you have any problems. Where can you learn more? Go to [employer] and enter [id number] in the search box. Current as of: November 02, 2013 Content Version: 10.4 ?? [id number] [employer]. HERE IS WHAT YOU NEED TO DO Call your clinic if: You develop new symptoms Your symptoms worsen unexpectedly You are not improving as expected You have questions about your visit or medications Future Appointments Provider Department Dept Phone 09/26/2014 3:00 PM Nanette Kay APRN, DIGITAL MUSIC INSTRUCTOR [facility] Obstetrics/Gynecology [phone] Please arrive 15 minutes early with your insurance card, photo ID, and copay. Should the office visit results in a procedure or any type of surgery financial clearance will contact you with an estimate. Should you need to cancel your appointment, please do so before 48 hours of your appointment. or new patients and patient not seen in last 3 years in OBGYN: post op, post-, and endo biopsy, cervical polyps, pap/pelvic/breast exam, Established patients who have been seen in last 3 years: symptom calls, med checks, post-, post-op, repeat paps, endo biopsy, vulver biopsy, cervical polyps, cryo therapy, IUD, established infertility, pap/pelvic/breast exam, nexplanon. HERE IS INFORMATION FROM TODAY'S VISIT Reason for Visit Dysuria Reason for Visit History Health issues considered by your clinician today Dysuria If you had any tests, you will be notified of your abnormal results by your clinic. We Performed the Following Urinalysis Routine(Micro If Pos): Urine Culture: Urine Microscopic: Results Urinalysis Routine(Micro If Pos): Component Value Standard Range & Units Urine Type Urine:clean cat Turbidity Clear Clear U Bili Negative Negative Blood Urine Large Negative Glucose, Qualitative U Negative Neg-30 mg/dL Ketones Negative Negative Leukocyte Esterase Urine Negative Negative Nitrite Urine Negative Negative pH Urine 7.0 5.0-8.0 Protein Urine 100 Neg - Trace mg/dL U Specific [place] 1.020 1.005 - 1.030 Urobilinogen Urine Negative Negative Eu/dL Urine Microscopic: Component Value Standard Range & Units Urine WBC 5-9 0 - 4 /HPF Urine RBC 50-100 0 - 2 /HPF Bacteria Urine Moderate /HPF Epithelial Cells Occasional /HPF Transitional Epithelial Cells Occasional /LPF Medications administered today None MEDICATIONS As of today's visit, these are your current medications DOSAGE nitrofurantoin, macrocrystal-monohydrate, (MACROBID) 100 mg capsule Take 1 capsule by mouth 2 timesdaily for 5 days. Vital signs from your visit Your Vital Signs Were BP Pulse Temp(Src) Resp SpO2 Smoking Status 109/65 mmHg 69 36.8 ??C (98.2 ??F) (Oral) 18 100% Never Smoker Allergies as of 09/25/2014 No Known Allergies Immunization History Reviewed on 09/23/2014 DTP 06/12/1984, 04/17/1984, 02/11/1984 MMR 03/12/1985 Oral Polio Vaccine 04/17/1984, 02/11/1984 TDAP (BOOSTRIX) 07/30/2012 About You Date Of Sex Race Ethnicity Preferred Language 1985 Female White Non- Swazi This document contains confidential information about your health and care. It is provided directlyto you for your personal, private use only. documented in this encounter Plan of Treatment Not on filedocumented as of this encounter Procedures Procedure Name Priority Date/Time Associated Comments Diagnosis URINE CULTURE STAT 09/25/2014 9:30 AM Dysuria Results for this CDT procedure are i n the results section. URINE MICROSCOPIC STAT 09/25/2014 8:54 AM Dysuria Resu lts for this CDT procedure are i n the results section. URINALYSIS STAT 09/25/2014 8:54 AM Dysuria Results f or this ROUTINE(MICRO IF POS) CDT proced ure are in the results section. documented in this encounter Results (ABNORMAL) Urine Culture (09/25/2014 9:30 AM CDT) [facility] Method Time Signature Source Urine HP CONVERSION Site clean catch HP CONVERSION Urine Culture (A) HP CONVERSION Urine Culture ESCHERICHIA HP CONVERSION COLI (A) Comment: Escherichia coli >100,000 cfu/ml ... For symptomatic patients, correlate cult ure results in context of clinical findings. Screening for and treatment of asymptomatic bacteriuria in adults 18 years and older is not recommended for the following per sons: premenopausal non women, diabetic women, elder ly persons, persons with spinal cord injury and catheterized patients. In general, asymptomatic bacteriuria munoz s not need treatment, except in or in pat ients anticipating urologic surgery. ... (See Infectious Disease Society of Ameri ca guidelines for additional information) ... http://ti.oxfordjournals.org/content/40 /5/643.full.pdf ... Specimen (Source) Anatomical Collection Method Collection Time Re ceived Time Location / / Volume Laterality Urine:clean catch 09/25/2014 9:30 AM CDT Narrative HP CONVERSION - 09/27/2014 6:06 AM CDT Performed at [facility] , ??[address] [place] [address], ?? CLIA Number [id number] Transcriptions 09/25/2014 9:30 AM CDTNotes Recorded by Yancy Isaac MD on 09/27/2014 at 6:45 Albina macrobid - UTI confirmed and sensitive to med.------Notes Recorded by Alexandra Toscano RN on 09/26/2014 at 9:41 AMprelim, on Bactrim Organism Antibiotic Method Susceptibility Escherichia coli Amoxicillin/Clavulanic Acid <=2 mcg/mL: Sensitive Escherichia coli Ampicillin 4 mcg/mL: Sensi tive Escherichia coli Ampicillin/Sulbactam 4 mcg/mL: Sensitive Escherichia coli Cefazolin <=4 mcg/mL: Sen sitive Escherichia coli Ceftazidime <=1 mcg/mL: Sen sitive Escherichia coli Ceftriaxone <=1 mcg/mL: Sen sitive Escherichia coli Ciprofloxacin <=0.25 mcg/mL: Sensitive Escherichia coli Ertapenem <=0.5 mcg/mL: S ensitive Escherichia coli Gentamicin <=1 mcg/mL: Sen sitive Escherichia coli Imipenem <=0.25 mcg/mL: Sensitive Escherichia coli Nitrofurantoin <=16 mcg/mL: Se nsitive Escherichia coli Piperacillin/Tazobactam <=4 mcg /mL: Sensitive Escherichia coli Tobramycin <=1 mcg/mL: Sen sitive Escherichia coli Trimethoprim/Sulfamethoxazole < =20 mcg/mL: Sensitive Yancy Isaac MD LAB_1 Performing Organization Address City/[facility] Phon e Number HP CONVERSION (ABNORMAL) URINE MICROSCOPIC (09/25/2014 8:54 AM CDT) [facility] Method Time Signature Urine WBC 5-9 (A) 0 - 4 HP CONVERSION /HPF Urine RBC 50-100 (A) 0 - 2 HP CONVERSION /HPF Bacteria Urine Moderate (A) /HPF HP CONVERSIO N Epithelial Cells Occasional /HPF HP CONVERSIO N Transitional Occasional /LPF HP CONVERSION Epithelial Cells Specimen Anatomical Collection Method Collection Time Receive d Time (Source) Location / / Volume Laterality 09/25/2014 8:54 AM 5 9:03 CDT AM CDT Narrative HP CONVERSION - 09/25/2014 9:11 AM CDT Performed at [place] [address] Yancy Isaac MD LAB_1 Performing Organization Address [facility] Phon e Number HP CONVERSION (ABNORMAL) URINALYSIS ROUTINE(MICRO IF POS) (09/25/2014 8:54 AM CDT) [facility] Method Time Signature Urine Type Urine:clean HP CONVERSION cat Turbidity Clear Clear HP CONVERSION U BILI Negative Negative HP CONVERSION Blood Urine Large (A) Negative HP CONVERSION Glucose, Negative Neg-30 HP CONVERSION Qualitative U mg/dL Ketones Negative Negative HP CONVERSION Leukocyte Negative Negative HP CONVERSION Esterase Urine Nitrite Urine Negative Negative HP CONVERSION pH Urine 7.0 5.0 - 8.0 HP CONVERSION Protein Urine 100 (A) Neg - Trace HP CONVERSION mg/dL U Specific 1.020 1.005 - HP CONVERSION [place] 1.030 Urobilinogen Negative Negative HP CONVERSION Urine Eu/dL Specimen Anatomical Collection Method Collection Time Receive d Time (Source) Location / / Volume Laterality Urine: 09/25/2014 8:54 AM 5 9:03 CDT AM CDT Narrative HP CONVERSION - 09/25/2014 9:09 AM CDT Performed at [facility], [address] [place] [address] Yancy Isaac MD LAB_1 Performing Organization Address City/State/ZIP Code Phon e Number HP CONVERSION documented in this encounter Visit Diagnoses Diagnosis Dysuria Triage Assessment Note - Jocelynn Tavera LPN - 09/25/2014 9:15 AM CDT pt c/o of having to use restroom more often, also feels like she is unable to empty her bladder all the way. Has been feeling this way for a couple days. She is drinking more water, and taking cranberry pills documented in this encounter Care Teams Tavern Car Attendant Relationship Specialty Start Date End Date Denisse Sue, PCP - General 05/12/13 [address] [place] [address] documented as of this encounter
--- OUTSIDE RECORDS SUMMARY | 2021-10-05 15:26 | XMS_ITS | Encounter Summary ---
:1985 [facility] Address [address] [place] [address] Care Team Providers Name Role Phone Denisse Sue DO Primary Care Provider Reason for Visit Reason Comments PRE-OP EXAM Encounter Details Date Type Department Care Team Description 05/12/2013 Pre-Op Visit [place] [address] Denisse Sue DO Preop examination (Primary Dx); Family Medicine [address] Anemia [address] [facility] [place] [address] [id number] [phone] Social History Tobacco Use Types Packs/Day Years Used Date Smoking Tobacco: Never Assessed Sex Assigned at Date Recorded Not on file documented as of this encounter Last Filed Vital Signs Vital Sign Reading Time Taken Comments Blood Pressure 80/54 05/12/2013 7:30 AM CDT Pulse 58 05/12/2013 7:30 AM CDT Temperature 36.3 ??C (97.3 ??F) 05/12/2013 7:30 AM CDT Respiratory Rate - - Oxygen Saturation - - Inhaled Oxygen Concentration - - Weight 54.9 kg (121 lb) 05/12/2013 7:30 AM CDT Height 165.7 cm (5' 5.25) 05/12/2013 7:30 AM CDT Body Mass Index 19.98 05/12/2013 7:30 AM CDT documented in this encounter OR Notes H&P - Denisse Sue DO - 05/12/2013 8:54 AM CDT PREOPERATIVE ASSESSMENT Date of : 1985 Age: 27 y.o. Sex: female Preoperative Evaluation completed by: Denisse Sue DO Primary care physician: Denisse Sue [phone] CHIEF COMPLAINT Pre-Operative Evaluation ANTICIPATED PROCEDURE Left foot soft tissue mass removal (suspected ganglion cyst) on 05/28/[address] Hurtado. HISTORY OF PRESENT ILLNESS Simona Che is a 27 y.o. female who is generally in good health. Foot mass has been bothering her when she runs. Risk Factors/Review of Systems: (Please see flowsheets for details) Cardiovascular risks negative except for: Renal risks negative except for: Neuro risks negative except for: GI risks negative except for: Pulmonary risks negative except for: Endocrine/Nutrition risks negative except for: Hematologic Disease risks negative except for: Anemia: Musculoskeletal/Skin risks negative except for: Mental Health risks negative except for: Other risk factors negative except for: Complete review of systems is otherwise negative. Past Medical History Diagnosis Date ??? Anemia ??? Irregular menstrual cycle ??? Migraine, unspecified, without mention of intractable migraine without mention of status migrainosus ??? Immunization, other disease ??? Trauma 08/2011 Fractured patella ??? Urinary tract infection 05/2010 Pyelonephritis Past Surgical History Procedure Laterality Date ??? Flint tooth extraction Family History Problem Relation Age of Onset ??? Thyroid Disease Mother ??? High Cholesterol Father ??? Cancer Maternal Grandfather leukemia ??? Diabetes Paternal Grandfather History Social History ??? Marital Status: Single [...] History Narrative ??? No narrative on file Current Outpatient Prescriptions Medication Sig Dispense Refill ??? clindamycin (CLEOCIN T) 1 % lotion Apply topically 2 times daily. to axilla. 60 mL 11 No current facility-administered medications for this visit. No Known Allergies PHYSICAL EXAMINATION Temp: 97.3 ??F (36.3 ??C) (05/12/1330) Pulse: 58 (05/12/13729) BP: 80/54 mmHg (05/12/13729) Height: 5' 5.25 (165.7 cm) (05/12/13729) Weight: 121 lb (54.885 kg) (05/12/13729) BMI (Calculated): 20.02 (05/12/13729) General Appearance: Normal HEENT: Normal Neck: Normal Lungs: Normal Heart: Abdomen: Normal Normal Extremities: Normal other than large cyst of the anterior left foot. Skin: Normal Neurologic: Normal TEST RESULTS AND DATE Labs done: Yes: date and results: 05/12/13. Lab Results Component Value Date/Time Hemoglobin 12.2 05/12/2013 0803 ASSESSMENT 1. Preoperative Assessment: This patient has been examined by me today and has been found to be a suitable candidate for surgery: Yes 2. Hx of anemia. Eat iron rich foods. Note given for ergonomic desk at work. RECOMMENDATIONS AND PLAN Day of surgery testing: none Medication recommendations: no adjustments needed. Additional screening recommended: no Consult (Cardiology/other): no Additional test results attached: none Beta sumaya protocol ordered: no Insulin/Diabetes orders initiated: no Continuous O2 Sat monitoring post op orders initiated: no Other: no ABOVE RECOMMENDATIONS WERE REVIEWED WITH PATIENT: yes Denisse Sue DO 05/12/2013 documented in this encounter Miscellaneous Notes Letter - Denisse Sue DO - 05/12/2013 12:00 AM CDT Return to Work/School Date: 05/12/2013 To Whom It May Concern Simona Che is a patient at [facility] and [facility]. For health reasons Kimberley would benefit from an ergonomic standing desk. Please feel free to contact me with any further questions. Comments: Underwood DO CE MANAGER documented in this encounter Plan of Treatment Not on filedocumented as of this encounter Visit Diagnoses Diagnosis Preop examination - Primary Preoperative examination, unspecified Anemia Anemia, unspecified documented in this encounter Care Teams Electrical Foreman Relationship Specialty Start Date End Date Denisse Sue DO PCP - General 05/12/13 04/04/16 [address] [place] [address] documented as of this encounter
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
--- OUTSIDE RECORDS SUMMARY | 2021-10-05 15:27 | XMS_ITS | Encounter Summary ---
:1985 Author Organization [facility] Address [address] [place] [address] Care Team Providers Name Role Phone Md MINA Leigh Primary Care Provider Encounter Details Date Type Department Care Team Description 01/23/2011 Notes/Orders [facility] Nanette Bravo, [address] APRN, PERENNIAL [place] [address] [place] [address] [address] [place] [phone] (Wo rk) Social History Tobacco Use Types Packs/Day Years Used Date Smoking Tobacco: Never Assessed Sex Assigned at Date Recorded Not on file documented as of this encounter Plan of Treatment Not on filedocumented as of this encounter Visit Diagnoses Not on filedocumented in this encounter Care Teams Head Of Operation And Logistics Relationship Specialty Start Date End Date Md Leigh MD PCP - General 05/26/10 05/11/13 [place], [place] [id number] documented as of this encounter
--- OUTSIDE RECORDS SUMMARY | 2021-10-05 15:28 | XMS_ITS | Encounter Summary ---
:1985 Author Organization [facility] Address [address] [place] [address] Care Team Providers Name Role Phone Md MINA Leigh Primary Care Provider Reason for Visit Reason Comments Other Encounter Details Date Type Department Care Team Description 02/16/2009 Telephone [facility] [address] , HAIR SPRING CUTTER, STUDENT SUPPORT COUNSELOR Other Obstetrics/Gynecolog y [address] [facility] [address] [place] [address] [place], [place] [phone] (Wo rk) Social History Tobacco Use Types Packs/Day Years Used Date Smoking Tobacco: Never Assessed Sex Assigned at Date Recorded Not on file documented as of this encounter Progress Notes Sergey Carlson RN - 02/16/2009 8:48 AM CST Phone Note filed by Yulisa Carlson RN at 06/15/101938 Author: Yulisa Carlson RN Service: (none) Author Type: (none) Filed: 06/15/101938 Note Time: 02/16/09 0848 Status: Signed Pipe Threader: Yulisa Carlson RN (Registered Nurse) MESSAGE TO CARE TEAM NAME OF CALLER:zhanna samayoa NAME OF CLINICIAN:nabila schwartz MESSAGE:patient is having a constant frontal headache sine 02/14/09. she stearted kariva on 02 05 09. she has never taken ocps before. she was a new pt to [facility].she does have a history of migraines. the headache was on the left front of forehead 02/14 and today its on the right. Clinician Follow-up needed. PHARMACY NAME: PHARMACY PHONE #: CITY: CALL BACK PHONE OR CELL PHONE: BEST TIME TO CALL BACK: IS IT OK TO LEAVE A CONFIDENTIAL MESSAGE ON THIS VOICEMAIL? *ECODE~PNMSG Created on 16Feb2009 8:48am by YULISA CARLSON On 16Feb2009 9:14am ALEXIS SCHWARTZ wrote: Since the pt has a h/o migraines, I would suggest that she stop ocp's, and discuss other options with JR. Acknowledged by ALEXIS SCHWARTZ on 9:14am On 16Feb2009 9:33am VICENTE GALVAN wrote: Pt was given the above msg. She'd like a call from [facility] when available, aware she is out of the office til next week. She'll stop the OCP, if anything else is called to pharmacy, please use [facility] [address]. Pt can be reached at [phone], msg ok On 21Feb2009 5:18pm LIANG KAY wrote: Message left at designated voice mail requesting call back to discuss treatment of headache while on ocp, whether headache resolved with medication or if med. not tried.Kimberley can reach me on my pager 02/22/09 or 02/27-03/03. On 21Feb2009 5:18pm LIANG KAY wrote: Message left at designated voice mail requesting call back to discuss treatment of headache while on ocp, whether headache resolved with medication or if med. not tried.Kimberley can reach me on my pager 02/22/09 or 02/27-03/03. Acknowledged by LIANG KAY on 5:18pm Acknowledged by LIANG KAY on 4:39pm On 28Feb2009 6:34pm LIANG KAY wrote: No response from patient, call closed. STANT PROFESSOR OF EDUCATION documented in this encounter Plan of Treatment Not on filedocumented as of this encounter Visit Diagnoses Not on filedocumented in this encounter Care Teams Direct Chill Caster Relationship Specialty Start Date End Date Md Leigh MD PCP - General 05/26/10 05/11/13 [place] [address] documented as of this encounter
--- OUTSIDE RECORDS SUMMARY | 2021-10-05 15:28 | XMS_ITS | Encounter Summary ---
:1985 [facility] Address [address] [place] [address] Care Team Providers Name Role Phone Md MINA Leigh Primary Care Provider Encounter Details Date Type Department Care Team Description 01/23/2011 Lab Visit [facility] Hyperhidrosis; [address] Anemia [place], [place] [address] Social History Tobacco Use Types Packs/Day Years Used Date Smoking Tobacco: Never Assessed Sex Assigned at Date Recorded Not on file documented as of this encounter Progress Notes Nicholas Weaver APRN, CNP - 03/07/2011 3:22 PM CST remind patient to schedule her hemoglobin lab. Nicholas Weaver APRN, CNP - 01/25/2011 5:51 PM ULTRASOUND TECHNOLOGIST Addended by: NICHOLAS WEAVER on: 01/25/2011 Modules [...] Re sults for this (INCL IRON) PM ULTRASOUND TECHNOLOGIST procedure are i n the results section. THYROID STIMULATING Routine 01/23/2011 3:48 Hyperhidrosis Resu lts for this HORMONE PM ULTRASOUND TECHNOLOGIST procedure are i n the results section. COMPLETE BLOOD Routine 01/23/2011 3:48 Hyperhidrosis Results f or this COUNT-NO DIFF PM ULTRASOUND TECHNOLOGIST procedure are in the results section. FERRITIN Routine 01/23/2011 3:48 Hyperhidrosis Results for this PM ULTRASOUND TECHNOLOGIST procedure are i n the results section. VENIPUNCTURE (JEFF) Routine 01/23/2011 3:41 Hyperhidrosis Resu lts for this PM ULTRASOUND TECHNOLOGIST procedure are i n the results section. documented in this encounter Results THYROID STIMULATING HORMONE (01/23/2011 3:48 PM ULTRASOUND TECHNOLOGIST) athologist Signature Thyroid 0.98 0.20 - HP CONVERSION Stimulating 4.50 mIU/L Hormone Specimen Anatomical Collection Method Collection Time Receive d Time (Source) Location / / Volume Laterality 01/23/2011 3:48 PM 1 7:58 ULTRASOUND TECHNOLOGIST PM ULTRASOUND TECHNOLOGIST Nicholas Weaver APRN, CNP LAB_1 Performing Organization Address City/State/ZIP Code Phon e Number HP CONVERSION (ABNORMAL) IRON BINDING CAPACITY (INCL IRON) (01/23/2011 3:48 PM ULTRASOUND TECHNOLOGIST) [facility] gist Method Time Signature Iron, Serum 10 [...] Volume Laterality 01/23/2011 3:48 PM 1 7:58 ULTRASOUND TECHNOLOGIST PM ULTRASOUND TECHNOLOGIST Nicholas Weaver APRN, CNP LAB_1 Performing Organization Address City/State/ZIP Code Phon e Number HP CONVERSION (ABNORMAL) Ferritin (01/23/2011 3:48 PM ULTRASOUND TECHNOLOGIST) athologist Signature Ferritin Serum <1 (L) 10 - 291 HP CONVERSION ng/mL Specimen Anatomical Collection Method Collection Time Receive d Time (Source) Location / / Volume Laterality 01/23/2011 3:48 PM 1 7:58 ULTRASOUND TECHNOLOGIST PM ULTRASOUND TECHNOLOGIST Nicholas Weaver APRN, CNP LAB_1 Performing Organization Address City/[facility] Phon e Number HP CONVERSION (ABNORMAL) Hemogram/Plts (01/23/2011 3:48 PM ULTRASOUND TECHNOLOGIST) [facility] gist Method Time Signature White Blood [...] Volume Laterality 01/23/2011 3:48 PM 1 3:48 ULTRASOUND TECHNOLOGIST PM ULTRASOUND TECHNOLOGIST Narrative HP CONVERSION - 01/23/2011 4:03 PM ULTRASOUND TECHNOLOGIST Performed at [facility], [address] [place] [address] Nicholas Weaver APRN, CNP LAB_1 Performing Organization Address [facility] Phon e Number HP CONVERSION VENIPUNCTURE (JEFF) (01/23/2011 3:41 PM ULTRASOUND TECHNOLOGIST) athologist Signature Venipuncture Done HP CONVERSION Specimen (Source) Anatomical Collection Method Collection Time Re ceived Time Location / / Volume Laterality 01/23/2011 3:41 PM ULTRASOUND TECHNOLOGIST Narrative HP CONVERSION - 01/23/2011 3:41 PM ULTRASOUND TECHNOLOGIST Performed at [facility], [address] [place] [address] Nicholas Weaver APRN, CNP LAB_1 Performing Organization Address [facility] Phon e Number HP CONVERSION documented in this encounter Visit Diagnoses Diagnosis Hyperhidrosis Primary focal hyperhidrosis Anemia Anemia, unspecified documented in this encounter Care Teams Flatwork Feeder Relationship Specialty Start Date End Date Md Leigh MD PCP - General 05/26/10 05/11/13 [place] [address] documented as of this encounter
--- OUTSIDE RECORDS SUMMARY | 2021-10-05 15:28 | XMS_ITS | Encounter Summary ---
:1985 Author Organization [facility] Address [address] [place] [address] Care Team Providers Name Role Phone Md MINA Leigh Primary Care Provider Encounter Details Date Type Department Care Team Description 01/13/2009 Office Visit [facility] [address] Nanette Kay APRN, CNP Obstetrics/Gynecolog y [address] [facility] 5th [place] [address] [phone] Social History Tobacco Use Types Packs/Day Years Used Date Smoking Tobacco: Never Assessed Sex Assigned at Date Recorded Not on file documented as of this encounter Last Filed Vital Signs Vital Sign Reading Time Taken Comments Blood Pressure 122/65 01/13/2009 1:01 PM MINING SUPPORT WORKER Pulse 63 01/13/2009 1:01 PM MINING SUPPORT WORKER Temperature - - Respiratory Rate - - Oxygen Saturation - - Inhaled Oxygen Concentration - - Weight 52 kg (114 lb 9.5 oz) 01/13/2009 1:01 PM MINING SUPPORT WORKER C: 52.0kg Height 162.6 cm (5' 4) 01/13/2009 1:01 PM MINING SUPPORT WORKER C: 162.6 cm Body Mass Index 19.67 01/13/2009 1:01 PM MINING SUPPORT WORKER documented in this encounter Progress Notes Nanette Kay APRN, DON - 01/13/2009 12:01 AM CST H&P signed by OMAR Tucker at 01/23/092032 Author: OMAR Tucker Service: (none) Author Type: Nurse Practitioner Filed: 06/16/10 1807 Note Time: 01/13/09 0001 Status: Signed Calendar Control Clerk Blood Bank: OMAR Tucker (Nurse Practitioner) NAME: ODESSA CHE MR#: [id number] ACCT: [id number] VISIT: [id number] DICTATING CLINICIAN: OMAR Tucker CONFIRM #: [id number] LOC: 412 CLINIC PHYSICAL DATE OF VISIT: 01/13/2009 SUBJECTIVE: : 1985. Kimberley is a nulliparous female who presents as new patient to me, as well as to Felipa Dang for health maintenance exam. Kimberley is currently using condoms for prevention and would really like to start oral contraceptives. 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 She has had 2 sexual partners historically. She has never been screened for gonorrhea or chlamydia. She believes her last Pap smear was about 2 years ago. As far as she knows, that was a normal exam. SIDE STITCHING MACHINE OPERATOR HISTORY: Onset of menses age 11. Cycles [...] breast exam. OBSTETRICAL HISTORY: Not applicable. PAST SIDE STITCHING MACHINE OPERATOR HISTORY: Not applicable. NON-SIDE STITCHING MACHINE OPERATOR SURGERIES: Extraction of wisdom teeth. PERSONAL HEALTH HISTORY: Seasonal allergies. History of menstrual migraines that respond effectively to [id number] Excedrin migraine. She does not have any [...] pending. Will follow up based on results. JAR:[id number] C: 01/13/09 19:07 CONFIRM #: [id number] NG SUPPORT WORKER documented in this encounter Plan of Treatment Not on filedocumented as of this encounter Visit Diagnoses Not on filedocumented in this encounter Care Teams Credit Portfolio Manager Relationship Specialty Start Date End Date Md Lu, PCP - General 05/26/10 05/11/13 [place] [address] documented as of this encounter
--- OUTSIDE RECORDS SUMMARY | 2021-10-05 15:28 | XMS_ITS | Encounter Summary ---
:1985 Author [facility] Address [address] [place] [address] Care Team Providers Name Role Phone Md MINA Leigh Primary Care Provider Reason for Visit Reason Comments EXCESSIVE SWEATING Encounter Details Date Type Department Care Team Description 01/23/2011 Office Visit [facility] Nicholas Weaver, Hyperhidrosis; [address] Milton Robb APRN, CNP [place], [place] [id number] [place] [address] [address] [phone] (Wo rk) Social History Tobacco Use Types Packs/Day Years Used Date Smoking Tobacco: Never Assessed Sex Assigned at Date Recorded Not on file documented as of this encounter Last Filed Vital Signs Vital Sign Reading Time Taken Comments Blood Pressure 92/50 01/23/2011 3:22 PM ENVIRONMENTAL HEALTH AND SAFETY INTERN Pulse 68 01/23/2011 3:22 PM ENVIRONMENTAL HEALTH AND SAFETY INTERN Temperature 36.7 ??C (98.1 ??F) 01/23/2011 3:22 PM ENVIRONMENTAL HEALTH AND SAFETY INTERN Respiratory Rate - - Oxygen Saturation - - Inhaled Oxygen Concentration - - Weight 50.8 kg (112 lb) 01/23/2011 3:22 PM ENVIRONMENTAL HEALTH AND SAFETY INTERN Height 165.1 cm (5' 5) 01/23/2011 3:22 PM ENVIRONMENTAL HEALTH AND SAFETY INTERN Body Mass Index 18.64 01/23/2011 3:22 PM ENVIRONMENTAL HEALTH AND SAFETY INTERN documented in this encounter Patient Instructions Patient InstructionsSuNicholas rincon APRN, MULTIFOLD OPERATOR - 01/23/2011 3:35 PM ENVIRONMENTAL HEALTH AND SAFETY INTERN Lab letter will arrive in 1-2 weeks. Aluminum Chloride as needed for sweating. RONMENTAL HEALTH AND SAFETY INTERN documented in this encounter Progress Notes Nicholas Weaver APRN, CNP - 01/23/2011 4:30 PM ENVIRONMENTAL HEALTH AND SAFETY INTERN Addended by: NICHOLAS WEAVER on: 01/23/2011 Modules [...] unspecified documented in this encounter Care Teams Slope Hoist Operator Relationship Specialty Start Date End Date Md Leigh MD PCP - General 05/26/10 05/11/13 [place] [address] documented as of this encounter
--- OUTSIDE RECORDS SUMMARY | 2021-10-05 15:28 | XMS_ITS | Encounter Summary ---
:1985 Author Organization [facility] Address [address] [place] [address] Care Team Providers Name Role Phone Md MINA Leigh Primary Care Provider Encounter Details Date Type Department Care Team Description 03/31/2010 Office Visit [facility] [address], Care Jovany Guzman MD [address] [facility] [address] [place] [address] [place] [address] [phone] (Wo rk) Social History Tobacco Use Types Packs/Day Years Used Date Smoking Tobacco: Never Assessed Sex Assigned at Date Recorded Not on file documented as of this encounter Last Filed Vital Signs Vital Sign Reading Time Taken Comments Blood Pressure 121/80 03/31/2010 8:19 AM EVP GLOBAL PRODUCT LEADERSHIP Pulse 66 03/31/2010 8:19 AM EVP GLOBAL PRODUCT LEADERSHIP Temperature 37 ??C (98.6 ??F) 03/31/2010 8:19 AM EVP GLOBAL PRODUCT LEADERSHIP C: 37.0 C Respiratory Rate 16 03/31/2010 8:19 AM EVP [employer]LO[employer] PRODUCT LEADERSHIP Oxygen Saturation 100% 03/31/2010 8:19 AM EVP GLOBAL PRODUCT LEADERSHIP Inhaled Oxygen Concentration - - Weight - - Height - - Body Mass Index - - documented in this encounter Progress Notes Jovany Degroot MD - 03/31/2010 12:01 AM CST NAME: ODESSA CHE MR#: [id number] ACCT: [id number] VISIT: [id number] DICTATING CLINICIAN: Megan Britton MD CONFIRM #: [id number] LOC: 420 CLINIC PROGRESS NOTE DATE OF [...] any vaginal discharge. She denies any numbness, kryu-pwx-[id number] feeling in lower or upper extremity, no [...] t.i.d. and if not better, have followup. [facility]:MEDQ C: CONFIRM #: [id number] GLOBAL PRODUCT LEADERSHIP documented in this encounter Plan of Treatment Not on filedocumented as of this encounter Procedures Procedure Name Priority Date/Time Associated Diagnosis Comme nts XR CHEST 2 VIEWS Routine 03/31/2010 8:59 AM Resul ts for this EVP GLOBAL PRODUCT LEADERSHIP procedure are i n the results section. documented in this encounter Results XR Chest 2 Views (03/31/2010 8:59 AM EVP GLOBAL PRODUCT LEADERSHIP) Anatomical Region Laterality Modality Chest, Lung Other Specimen (Source) Anatomical Location Collection Method / Collectio n Time Received Time / Laterality Volume Impressions 03/31/2010 8:59 AM EVP [employer]LOBAL PRODUCT LEADERSHIP : ??Normal. Dictating TAYLOR ROBINS RADIOLOGIST Narrative 03/31/2010 8:59 AM EVP [employer]BAL PRODUCT LEADERSHIP FINDINGS: ??No comparisons. ??Cardiac and mediastinal silhouettes [...] on filedocumented in this encounter Care Teams Marine Mechanic Relationship Specialty Start Date End Date Md Lu, PCP - General 05/26/10 05/11/13 [place] [address] documented as of this encounter
--- OUTSIDE RECORDS SUMMARY | 2021-10-05 15:28 | XMS_ITS | Encounter Summary ---
:1985 Author Organization [facility] Address [address] [place] [address] Care Team Providers Name Role Phone Md MINA Leigh Primary Care Provider Encounter Details Date Type Department Care Team Description 02/24/1989 PN Conversion Only W[employer] INSTALLER [address]ector I [address] [place] [address] [address] [place] [address] (Wo rk) Social History Tobacco Use Types Packs/Day Years Used Date Smoking Tobacco: Never Assessed Sex Assigned at Date Recorded Not on file documented as of this encounter Plan of Treatment Not on filedocumented as of this encounter Visit Diagnoses Not on filedocumented in this encounter Care Teams Oil Laboratory Analyst Relationship Specialty Start Date End Date Md Leigh MD PCP - General 05/26/10 05/11/13 [place] [address] documented as of this encounter
--- OUTSIDE RECORDS SUMMARY | 2021-10-05 15:28 | XMS_ITS | Encounter Summary ---
:1985 Author Organization [facility] Address [address] [place] [address] Care Team Providers Name Role Phone Unavailable Primary Care Provider Unavailable Reason for Visit Reason Comments INJURY, FINGERS Encounter Details Date Type Department Care Team Description 09/01/1997 Telephone Careline Aisha Aguilar, RN INJURY, FINGERS [address] [place], [place] [address] [phone] [place] [address] Social History Tobacco Use Types Packs/Day Years Used Date Smoking Tobacco: Never Assessed Sex Assigned at Date Recorded Not on file documented as of this encounter Nursing Notes 09/01/1997 11:59 PM CDT >> CALL RECEIVED. Contact: [phone] >> AISHA AGUILAR 09/01/1997 10:07 pm Dad [...] to go to Er will go to [facility]. documented in this encounter Plan of Treatment Not on filedocumented as of this encounter Visit Diagnoses Not on filedocumented in this encounter
--- OUTSIDE RECORDS SUMMARY | 2021-10-05 15:28 | XMS_ITS | Encounter Summary ---
:1985 Author Organization [facility] Address [address] [place] [address] Care Team Providers Name Role Phone Md MINA Leigh Primary Care Provider Encounter Details Date Type Department Care Team Description 06/20/2010 PN Conversion Only PRESIDING JUDGE [address] Nicholas Rodríguez APRN, [address] [facility] [address] [facility] 5th Floor [address] [place], [place] [address] (Wo rk) Social History Tobacco Use Types [...] Transmitted Disease Probe (06/20/2010 3:38 PM CDT) [facility] Method Time Signature Sexually SEE TEXT HP CONVERSION Transmitted Disease Probe Comment: STDPR Sexually Transmitted Disease DNA Probe ? ORDERED BY: NICHOLAS KAY SOURCE: Endocervical for molecular testi ng COLLECTED: ??06/20/10 15:38 ? PLATED: ? 06/20/10 15:38 Chlamydia trachomatis DNA Probe ?FINAL ? 06/22/10 10:17 Chlamydia trachomatis NEGATIVE by DNA a mplification The amplified DNA assay is cleared by [facility] for non-medicolegal diagnostic testing in [facility] adult population. Neisseria gonorrhea DNA Probe ?FINAL ? 06/22/10 10:17 Neisseria gonorrhea NEGATIVE by DNA amp lification. The amplified DNA assay is cleared by [facility] for non-medicolegal diagnostic testing in [facility] adult population. Specimen (Source) Anatomical Collection Method Collection Time Re ceived Time Location / / Volume Laterality 06/20/2010 3:38 PM CDT Nicholas Kay APRN, MANAGER FINANCE LAB_1 Performing Organization Address City/[facility] Code Phon e Number HP CONVERSION [...] 06/20/2010 12:33 PM CDT Nicholas Kay APRN, MANAGER FINANCE LAB_1 Performing Organization Address City/[facility] Code Phon e Number HP CONVERSION URINALYSIS ROUTINE(MICRO IF POS) (06/20/2010 12:33 PM CDT) [facility] gist Method Time Signature Urine Type [...] U Specific 1.010 1.005 - HP CONVERSION [place] 1.030 Urobilinogen Negative Negative HP CONVERSION Urine Eu/dL Specimen (Source) Anatomical Collection Method Collection Time Re ceived Time Location / / Volume Laterality 06/20/2010 12:33 PM CDT Nicholas Kay APRN, MANAGER FINANCE LAB_1 Performing Organization Address City/[facility] Phon e Number HP CONVERSION Urine Culture (06/20/2010 12:31 PM CDT) Analysis Performed At [facility] Time Signature Urine Culture SEE TEXT HP [...] Kay APRN, DON LAB_1 Performing Organization Address City/[facility] Phon e Number HP CONVERSION documented in this encounter Visit Diagnoses Not on filedocumented in this encounter Care Teams Vp Clinical Research Relationship Specialty Start Date End Date Md Leigh MD PCP - General 05/26/10 05/11/13 [place] [address] documented as of this encounter
--- OUTSIDE RECORDS SUMMARY | 2021-10-05 15:28 | XMS_ITS | Encounter Summary ---
:1985 Author Organization [facility] Address [address] [place] [address] Care Team Providers Name Role Phone Md MINA Leigh Primary Care Provider Encounter Details Date Type Department Care Team Description 07/12/2008 PN Conversion Only PIPE WASHER [address] [place] [address] Social History Tobacco Use Types Packs/Day Years Used Date Smoking Tobacco: Never Assessed Sex Assigned at Date Recorded Not on file documented as of this encounter Plan of Treatment Not on filedocumented as of this encounter Visit Diagnoses Not on filedocumented in this encounter Care Teams Cupboard Builder Relationship Specialty Start Date End Date Md Leigh MD PCP - General 05/26/10 05/11/13 [place], [place] [address] documented as of this encounter
--- OUTSIDE RECORDS SUMMARY | 2021-10-05 15:28 | XMS_ITS | Encounter Summary ---
:1985 Author Organization [facility] Address [address] [place] [address] Care Team Providers Name Role Phone Md MINA Leigh Primary Care Provider Encounter Details Date Type Department Care Team Description 03/31/2010 PN Conversion Only PENTECOSTAL CONVERSION Social History Tobacco Use Types Packs/Day Years Used Date Smoking Tobacco: Never Assessed Sex Assigned at Date Recorded Not on file documented as of this encounter Plan of Treatment Not on filedocumented as of this encounter Visit Diagnoses Not on filedocumented in this encounter Care Teams Rib Puller Relationship Specialty Start Date End Date Md Leigh MD PCP - General 05/26/10 05/11/13 [place] [address] documented as of this encounter
--- OUTSIDE RECORDS SUMMARY | 2021-10-05 15:28 | XMS_ITS | Encounter Summary ---
:1985 Author Organization [facility] Address [address] [place] [address] Care Team Providers Name Role Phone Md MINA Leigh Primary Care Provider Encounter Details Date Type Department Care Team Description 03/31/2010 PN Conversion Only COMMERCIAL CARPET INSTALLER [address]on, [address] [place] [address] [place], [place] [phone] (Wo rk) Social History Tobacco Use Types Packs/Day Years Used Date Smoking Tobacco: Never Assessed Sex Assigned at Date Recorded Not on file documented as of this encounter Plan of Treatment Not on filedocumented as of this encounter Procedures Procedure Name Priority Date/Time Associated Comments Diagnosis SEXUALLY TRANSMITTED Routine 03/31/2010 9:50 AM R esults for this DISEASE PROBE FOREST RESOURCES PROFESSOR procedure are in the results section. COMPLETE BLOOD Routine 03/31/2010 9:50 AM Results for this COUNT-W/DIFF FOREST RESOURCES PROFESSOR procedure are i n the results section. DIFFERENTIAL Routine 03/31/2010 9:50 AM Results f or this FOREST RESOURCES PROFESSOR procedure are i n the results section. WET PREP Routine 03/31/2010 9:40 AM Results f or this FOREST RESOURCES PROFESSOR procedure are i n the results section. URINE MICROSCOPIC Routine 03/31/2010 8:48 AM Resu lts for this FOREST RESOURCES PROFESSOR procedure are i n the results section. URINALYSIS Routine 03/31/2010 8:48 AM Results f or this ROUTINE(MICRO IF POS) FOREST RESOURCES PROFESSOR proced ure are in the results section. URINE CULTURE Routine 03/31/2010 8:48 AM Results for this FOREST RESOURCES PROFESSOR procedure are i n the results section. documented in this encounter Results Sexually Transmitted Disease Probe (03/31/2010 9:50 AM FOREST RESOURCES PROFESSOR) [facility] Method Time Signature Sexually SEE TEXT HP CONVERSION Transmitted Disease Probe Comment: STDPR Sexually Transmitted Disease DNA Probe ? ORDERED BY: PMAELA PUGH - SOURCE: Endocervical for molecular testi ng COLLECTED: ??03/31/10 09:50 ? PLATED: ? 03/31/10 09:55 Chlamydia trachomatis DNA Probe ?FINAL ? 04/02/10 13:52 Chlamydia trachomatis NEGATIVE by DNA a mplification The amplified DNA assay is cleared by [facility] for non-medicolegal diagnostic testing in [facility] adult population. Neisseria gonorrhea DNA Probe ?FINAL ? 04/02/10 13:52 Neisseria gonorrhea NEGATIVE by DNA amp lification. The amplified DNA assay is cleared by [facility] for non-medicolegal diagnostic testing in [facility] adult population. Specimen (Source) Anatomical Collection Method Collection Time Re ceived Time Location / / Volume Laterality 03/31/2010 9:50 AM FOREST RESOURCES PROFESSOR Pamela Britton MD LAB_1 Performing Organization Address City/State/ZIP Code Phon e Number HP CONVERSION (ABNORMAL) Differential (03/31/2010 9:50 AM FOREST RESOURCES PROFESSOR) [facility] Method Time Signature Absolute 2.8 2.0 [...] / / Volume Laterality 03/31/2010 9:50 AM FOREST RESOURCES PROFESSOR Pamela Britton MD LAB_1 Performing Organization Address [facility] [address]/[facility] Code Phon e Number HP CONVERSION (ABNORMAL) Hemogram/Plts/Diff (03/31/2010 9:50 AM FOREST RESOURCES PROFESSOR) Patholo gist Method Time Signature White Blood [...] / / Volume Laterality 03/31/2010 9:50 AM FOREST RESOURCES PROFESSOR Pamela Britton MD LAB_1 Performing Organization Address [facility] [address]/[facility] Phon e Number HP CONVERSION Wet Prep (03/31/2010 9:40 AM FOREST RESOURCES PROFESSOR) P athologist Signature Wet Prep SEE TEXT [...] / / Volume Laterality 03/31/2010 9:40 AM FOREST RESOURCES PROFESSOR Pmaela Britton MD LAB_1 Performing Organization Address [facility] [address]/[facility] Phon e Number HP CONVERSION Urine Culture (03/31/2010 8:48 AM FOREST RESOURCES PROFESSOR) Analysis Performed At Patho logist Time Signature [...] / / Volume Laterality 03/31/2010 8:48 AM FOREST RESOURCES PROFESSOR Pamela Britton MD LAB_1 Performing Organization Address [facility] [address]/[facility] Phon e Number HP CONVERSION (ABNORMAL) URINE MICROSCOPIC (03/31/2010 8:48 AM FOREST RESOURCES PROFESSOR) [facility] Method Time Signature White Blood >100 (A) 0 - 4 /HPF HP CONVERSION Cells Urine Red Blood Cells 3-4 (A) 0 - 2 /HPF HP CONVERSION Urine Bacteria Urine Many (A) /HPF HP CONVERSION Epithelial Moderate /HPF HP CONVERSION Cells Specimen (Source) Anatomical Collection Method Collection Time Re ceived Time Location / / Volume Laterality 03/31/2010 8:48 AM FOREST RESOURCES PROFESSOR Pamela Britton MD LAB_1 Performing Organization Address [facility] [address]/[facility] Phon e Number HP CONVERSION (ABNORMAL) URINALYSIS ROUTINE(MICRO IF POS) (03/31/2010 8:48 AM FOREST RESOURCES PROFESSOR) [facility] gist Method Time Signature Urine Type [...] U Specific <=1.005 1.005 - HP CONVERSION Debary 1.030 Urobilinogen Negative Negative HP CONVERSION Urine Eu/dL Specimen (Source) Anatomical Collection Method Collection Time Re ceived Time Location / / Volume Laterality 03/31/2010 8:48 AM FOREST RESOURCES PROFESSOR Pamela Britton MD LAB_1 Performing Organization Address [facility] [address]/[facility] Phon e Number HP CONVERSION documented in this encounter Visit Diagnoses Not on filedocumented in this encounter Care Teams Operations Administrator Relationship Specialty Start Date End Date Md Leigh MD PCP - General 05/26/10 05/11/13 [place] [address] documented as of this encounter
--- OUTSIDE RECORDS SUMMARY | 2021-10-05 15:28 | XMS_ITS | Encounter Summary ---
:1985 Author Organization [facility] Address [address] [place] [address] Care Team Providers Name Role Phone Md MINA Leigh Primary Care Provider Encounter Details Date Type Department Care Team Description 06/21/2010 PN Conversion Only CONVERSION CONVERSION Jovany Melendez MD [address] [place], [place] [phone] (Wo rk) Social History Tobacco Use Types Packs/Day Years Used Date Smoking Tobacco: Never Assessed Sex Assigned at Date Recorded Not on file documented as of this encounter Plan of Treatment Not on filedocumented as of this encounter Visit Diagnoses Not on filedocumented in this encounter Care Teams Client Technical Support Associate Relationship Specialty Start Date End Date Md Leigh MD PCP - General 05/26/10 05/11/13 [place], [place] [id number] documented as of this encounter
--- OUTSIDE RECORDS SUMMARY | 2021-10-05 15:28 | XMS_ITS | Encounter Summary ---
:1985 Author Organization [facility] Address [address] [place] [address] Care Team Providers Name Role Phone Md MINA Leigh Primary Care Provider Encounter Details Date Type Department Care Team Description 04/06/2010 Office Visit [facility] Naentte Bravo, [address] [facility] GRANT, QUALITY REVIEW [place] [address] [place] [address] [address] [address] (Wo rk) Social History Tobacco Use Types Packs/Day Years Used Date Smoking Tobacco: Never Assessed Sex Assigned at Date Recorded Not on file documented as of this encounter Progress Notes Nanette Bravo, JUANITA, QUALITY REVIEW TRAINER - 04/06/2010 12:01 AM CST SUBJECTIVE: Simona [...] discharged ambulatory and in stable condition. *SH~DNS~SOAP R TONG OPERATOR documented in this encounter Plan of Treatment Not on filedocumented as of this encounter Visit Diagnoses Not on filedocumented in this encounter Care Teams Utility Systems Repairer Operator Relationship Specialty Start Date End Date Md Leigh MD PCP - General 05/26/10 05/11/13 [place] [address] documented as of this encounter
--- OUTSIDE RECORDS SUMMARY | 2021-10-05 15:28 | XMS_ITS | Encounter Summary ---
:1985 Author Organization [facility] Address [address] [place] [address] Care Team Providers Name Role Phone Md MINA Leigh Primary Care Provider Encounter Details Date Type Department Care Team Description 06/20/2010 Office Visit [facility] [address] Nanette Kay APRN, CNP Obstetrics/Gynecolog y [address] [place] 5th Floor [facility] [address] [phone] Social History Tobacco Use Types Packs/Day Years [...] on filedocumented in this encounter Care Teams Assembly Line Worker Relationship Specialty Start Date End Date Md Leigh MD PCP - General 05/26/10 05/11/13 [place] [address] documented as of this encounter
--- OUTSIDE RECORDS SUMMARY | 2021-10-05 15:28 | XMS_ITS | Encounter Summary ---
:1985 Author Organization [facility] Address [address] [place] [address] Care Team Providers Name Role Phone Md MINA Leigh Primary Care Provider Encounter Details Date Type Department Care Team Description 01/13/2009 PN Conversion Only ETCHER AIRCRAFT 38[address] Nanette Rodríguez APRN, [address] [facility] [address] [facility] 5th Floor [address] [place], [place] [address] (Wo rk) Social History Tobacco Use Types Packs/Day Years Used Date Smoking Tobacco: Never Assessed Sex Assigned at Date Recorded Not on file documented as of this encounter Plan of Treatment Not on filedocumented as of this encounter Procedures Procedure Name Priority Date/Time Associated Comments Diagnosis SEXUALLY TRANSMITTED Routine 01/13/2009 3:46 PM R esults for this DISEASE PROBE REALTY LOAN SPECIALIST procedure are in the results section. ANATOMICAL PATH Routine 01/13/2009 8:23 AM Result s for this LIQUID BASED REALTY LOAN SPECIALIST procedure are i n the results section. documented in this encounter Results Sexually Transmitted Disease Probe (01/13/2009 3:46 PM REALTY LOAN SPECIALIST) [facility] gist Method Time Signature Sexually SEE TEXT HP CONVERSION Transmitted Disease Probe Comment: Patient: ODESSA CHE Sexually Trans Disease Probe ?Collected: ??[id number] ??[id number] Source: ENDOCERV ?Processed: ??[id number] ??[id number] Final Report ------ ?[id number] ??[id number] No Chlamydia trachomatis detected by amp lified DNA assay No Neisseria gonorrhoeae detected by amp lified DNA assay The [employer] Amplified DNA assay is suman red by the FDA for non-medicolegal diagnostic testing in the adult population. Specimen (Source) Anatomical Collection Method Collection Time Re ceived Time Location / / Volume Laterality 01/13/2009 3:46 PM REALTY LOAN SPECIALIST Nanette Kay APRN, [facility] Performing Organization Address City/State/ZIP Code Phon e Number HP CONVERSION Pap Smear (01/13/2009 8:23 AM REALTY LOAN SPECIALIST) [facility] gist Method Time Signature PAP Smear SEE TEXT No normal HP CONVERSION Liquid Based range Comment: Patient: ODESSA CHE ? CERVICAL CYTOLOGY REPORT Pathology # ??[id number] ?Date Obtained: ? Date Received: CYTOLOGIC IMPRESSION: Negative for intraepithelial lesion or m alignancy. Verified 01/18/09 by: ??MB ? (electronic signature) ? ALYSA TIONAL DATA LMP: CLINICAL HIST LIQUID BASED PAP CERVICAL SPECIMEN ADEQUACY: ?? Satisfactory. ENDOCERVICAL CELLS: ??Present. Specimen (Source) Anatomical Collection Method Collection Time Re ceived Time Location / / Volume Laterality 01/13/2009 8:23 AM REALTY LOAN SPECIALIST Nanette Kay NITRO WORKER, [facility] Performing Organization Address City/State/ZIP Code Phon e Number HP CONVERSION documented in this encounter Visit Diagnoses Not on filedocumented in this encounter Care Teams Lamp Stack Developer Relationship Specialty Start Date End Date Md Lu, PCP - General 05/26/10 05/11/13 [place], [place] [address] documented as of this encounter
--- OUTSIDE RECORDS SUMMARY | 2021-10-05 15:28 | XMS_ITS | Encounter Summary ---
:1985 Author Organization [facility] Address [address] [place] [address] Care Team Providers Name Role Phone Md MINA Leigh Primary Care Provider Encounter Details Date Type Department Care Team Description 12/25/2002 PN Conversion Only BACKEND DEVELOPER [address] [place] [address] Social History Tobacco Use Types Packs/Day Years Used Date Smoking Tobacco: Never Assessed Sex Assigned at Date Recorded Not on file documented as of this encounter Plan of Treatment Not on filedocumented as of this encounter Visit Diagnoses Not on filedocumented in this encounter Care Teams Physical Education Department Chair Relationship Specialty Start Date End Date Md Leigh MD PCP - General 05/26/10 05/11/13 [place], [place] [address] documented as of this encounter
--- OUTSIDE RECORDS SUMMARY | 2021-10-05 15:28 | XMS_ITS | Encounter Summary ---
:1985 Author Organization [facility] Address [address] [place] [address] Care Team Providers Name Role Phone Md MINA Leigh Primary Care Provider Reason for Visit Reason Comments Other Encounter Details Date Type Department Care Team Description 06/20/2010 Telephone [facility] [address] [place], Message Other Obstetrics/Gynecolog y [address] [place] [address] Social History Tobacco Use Types Packs/Day Years Used Date Smoking Tobacco: Never Assessed Sex Assigned at Date Recorded Not on file documented as of this encounter Progress Notes [place], Message - 06/20/2010 8:33 AM CDT Ml on pt's contact number to go to COMPUTER CONSOLE OPERATOR lab 1/2 hr prior to appt for UA/UC. Labs faxed. Created on 20Jun2010 8:33am by ELVA DU documented in this encounter Plan of Treatment Not on filedocumented as of this encounter Visit Diagnoses Not on filedocumented in this encounter Care Teams Calculating Machine Mechanic Relationship Specialty Start Date End Date Md Leigh MD PCP - General 05/26/10 05/11/13 [place] [address] documented as of this encounter
--- OUTSIDE RECORDS SUMMARY | 2021-10-05 15:28 | XMS_ITS | Encounter Summary ---
:1985 Author Organization [facility] Address [address] [place] [address] Care Team Providers Name Role Phone Md MINA Leigh Primary Care Provider Encounter Details Date Type Department Care Team Description 07/12/2008 Office Visit [facility] [address], Care Jovany Guzman MD [address] [facility] [address] [place] [address] [place] [address] [phone] (Wo rk) Social History Tobacco Use Types [...] 1319 Note Time: 07/12/08 0001 Status: Signed Professional Services Manager: Megan Britton MD (Physician) NAME: ODESSA CHE MR#: [id number] ACCT: [id number] VISIT: [id number] DICTATING CLINICIAN: Megan Britton MD CONFIRM #: [id number] LOC: 420 CLINIC PROGRESS NOTE DATE OF [...] try some icing and ibuprofen as well. [facility]:[id number] C: 07/13/08 10:58 CONFIRM #: [id number] documented in this encounter Plan of Treatment [...] recommended if there are persistent s ymptoms. [id number]/ddb Dictating JUVENAL HERNANDEZ RADIOLOGIST Procedure Note Juvenal [...] recommended if there are persistent s ymptoms. 006687/ddb Dictating JUVENAL HERNANDEZ RADIOLOGIST Jovany Britton MD RAD GD documented in this encounter Visit Diagnoses Not on filedocumented in this encounter Care Teams Clinical Psychologist Relationship Specialty Start Date End Date Md Leigh MD PCP - General 05/26/10 05/11/13 [place] [address] documented as of this encounter
[2021-10-06 21:53] LABS: Strep B DNA Probe NEGATIVE (Negative)
== END 2021-10-05 15:24 | disposition home or self-care (01) ==
LOC: NFLDREF 15:23
PROVIDERS: PCP Nurse Practitioner Family; Visit Provider Obstetrics & Gynecology
DX: Z34.93 Encounter for supervision of normal pregnancy, unspecified, third trimester (principal); Z3A.37 37 weeks gestation of pregnancy
CPT/HCPCS: 76816; 76819; 87081; 87653

== ENCOUNTER 2021-10-12 14:01 | Outpatient (CLI) | payer BC, SELFPAY ==
--- NOTE | 2021-10-12 14:00 | CRLHL7_ITS ---
For Patients: As a result of the Century Cures Act, medical imaging exams and procedure reports are released immediately into your electronic medical record. You may view this report before your referring provider. If you have questions, please contact your health care provider. INDICATION: 2 VESSEL CORD COMPARISON: 10/05/2021 TECHNIQUE: Real time reid scale imaging of the fetus was performed. Without non-stress testing. FINDINGS: Sonographic imaging demonstrates a single living intrauterine gestation. Fetus demonstrates a regular cardiac rate of 152 beats per minute. Fetus has a vertex position. The amniotic fluid volume appears normal and there is a single deepest pocket measurement of 7.2 cm. The fetus was active and demonstrated normal breathing movements. There was normal flexion and extension of the trunk and extremities. IMPRESSION: Normal biophysical profile score of 8 out of 8. Dictated by Twin Sykes MD @ 10/12/2021 3:30:05 PM (Electronically Signed)
--- OUTSIDE RECORDS SUMMARY | 2021-10-12 14:06 | XMS_ITS | Encounter Summary ---
:1985 Author Organization [facility] Address [address] [place] [address] Care Team Providers Name Role Phone Jie Mckeon DO Primary Care Provider Reason for Visit Reason Comments Refill SUMAtriptan (IMITREX) 100 MG tablet Encounter Details Date Type Department Care Team Description 01/27/[address] [facility] 3850 Jie Mckeon, Re fill (SUMAtriptan Family Medicine DO (IMITREX) 100 MG [address] [place] [address] let) [place] [phone] (Wo rk) Social History Tobacco Use Types [...] Tablet by mouth as needed for Migraine. CELL SYSTEMS ENGINEER Interface, Out Experiment Prov Query - 01/27/2020 12:54 PM CST [...] MCKEON) Next scheduled visit: None Powered by newScale, Reference: [id number], 01/27/2020 12:54:06 PM FUEL CELL SYSTEMS ENGINEER, Pool: PN REFILL WIZARD ADMIN ([id number]) CELL SYSTEMS ENGINEER Adan Archibald - 01/27/2020 12:53 PM CST [...] refills) Please route to: Refill Pool (P [id number]) [place] FP Pool [place] Patients ONLY (P [id number]) [facility] [place] ONLY (P [phone]) CELL SYSTEMS ENGINEER documented in this encounter Plan of Treatment Not on filedocumented as of this encounter Visit Diagnoses Not on filedocumented in this encounter Care Teams Outside Machinist Apprentice Relationship Specialty Start Date End Date Jie Mckeon DO PCP - General Family Practice 04/05/16 [address] [place] [address] documented as of this encounter
--- OUTSIDE RECORDS SUMMARY | 2021-10-12 14:06 | XMS_ITS | Encounter Summary ---
:1985 Author Organization [facility] Address [address] [place] [address] Care Team Providers Name Role Phone Jie Farah DO Primary Care Provider Reason for Visit Reason Comments MEDICATION CHECK Refill Encounter Details Date Type Department Care Team Description 02/15/2019 Office Visit [facility] 3850 Jie Farah, [place] graine without aura Family Medicine DO and without status [address] rainosus, not [address] intractable (Primary [place], [place] Dx ) [phone] (Wo rk) Social History Tobacco Use Types [...] Comments Blood Pressure 97/57 02/15/2019 9:07 AM INFORMATION SERVICES MANAGER Pulse 61 02/15/2019 9:07 AM INFORMATION SERVICES MANAGER Temperature - - Respiratory Rate - - Oxygen Saturation - - Inhaled Oxygen Concentration - - Weight 54.7 kg (120 lb 9.6 oz) 02/15/2019 9:07 AM INFORMATION SERVICES MANAGER Height - - Body Mass Index 19.32 04/09/2017 3:19 PM INFORMATION SERVICES MANAGER documented in this encounter Progress Notes Jie [...] or worsen referral to the headache Clinic. RMATION SERVICES MANAGER documented in this encounter Plan of Treatment Not on filedocumented as of this encounter Visit Diagnoses Diagnosis Migraine without aura and without status migrainosus, not intractable - Primary Migraine without aura, without mention o f intractable migraine without mention of status migrainosus documented in this encounter Care Teams Pulp Piler Relationship Specialty Start Date End Date Jie Farah DO PCP - General Family Practice 04/05/16 [address] [place] [address] documented as of this encounter
--- OUTSIDE RECORDS SUMMARY | 2021-10-12 14:06 | XMS_ITS | Encounter Summary ---
:1985 Author Organization [facility] Address [address] [place] [address] Care Team Providers Name Role Phone Jie Mckeon DO Primary Care Provider Reason for Visit Reason Onset Date Comments Refill 07/14/2019 SUMAtriptan (IMITREX ) 100 MG tablet Encounter Details Date Type Department Care Team Description 07/14/[address] [facility] 3850 Jie Mckeon, Re fill (SUMAtriptan Family Medicine DO (IMITREX) 100 MG [address] [place] [address] tab let) [place] [phone] (Wo rk) Social History Tobacco Use Types [...] mouth as needed for Migraine. Interface, Out Root Metrics Query - 07/14/2019 9:55 AM CDT SUMAtriptan [...] 57 mm Hg on 02/15/2019 Powered by InvoiceSharing, Reference: [id number], 07/14/2019 9:55:23 AM CDT, Pool: [id number] FM REFILL ([id number]) documented in this encounter Plan of Treatment Not on filedocumented as of this encounter Visit Diagnoses Not on filedocumented in this encounter Care Teams Nsh Teacher Relationship Specialty Start Date End Date Jie Mckeon, PCP - General Family Practice 04/05/16 [address] [place] [address] documented as of this encounter
--- OUTSIDE RECORDS SUMMARY | 2021-10-12 14:06 | XMS_ITS | Encounter Summary ---
:1985 Author [facility] Address [address] [place] [address] Care Team Providers Name Role Phone Jie Farah DO Primary Care Provider Reason for Visit Reason Onset Date Comments Refill 07/15/2017 Encounter Details Date Type Department Care Team Description 07/15/2017 Refill [facility] 3850 Family Jie Roper DO Refill Medicine [address] [place] [address] [place], [place] [address] [phone] Social History Tobacco Use Types Packs/Day Years [...] MG tablet [Jie Farah DO] Preferred pharmacy: [facility] [address] [facility] [address] [facility] Comment: Good Morning, Would it be possible to get a renewal of this prescription? It has been really beneficial in helping with headaches. I apologize if this was a duplication of the pharmacy. Thank you. Kimberley documented in this encounter Plan of Treatment Not on filedocumented as of this encounter Visit Diagnoses Not on filedocumented in this encounter Care Teams Aircraft Engineer Relationship Specialty Start Date End Date Jie Farah DO PCP - General Family Practice 04/05/16 [address] [place] [address] documented as of this encounter
--- OUTSIDE RECORDS SUMMARY | 2021-10-12 14:06 | XMS_ITS | Encounter Summary ---
:1985 Author Organization [facility] Address [address] [place] [address] Care Team Providers Name Role Phone Sofi Jie Shweta ZARAGOZA Primary Care Provider Reason for Visit Reason Comments Refill Encounter Details Date Type Department Care Team Description 03/08/2018 [facility]ill [facility] Nicholas Kay A PRN, PYROTECHNIC ASSEMBLER Refill Obstetrics/Gynecolog y [address] [facility] 5th [place] [address] [place], [place] [address] (Wo rk) Social History Tobacco Use Types [...] Department Center 04/22/2018 7:30 AM Nicholas Kay, ROOM CLEANER, PYROTECHNIC ASSEMBLER P6500 OB PN 0790 ARCHITECT documented in this encounter Plan of Treatment Not on filedocumented as of this encounter Visit Diagnoses Not on filedocumented in this encounter Care Teams Materials And Processes Manager Relationship Specialty Start Date End Date Jie Farah DO PCP - General Family Practice 04/05/16 [address] [place] [address] documented as of this encounter
--- OUTSIDE RECORDS SUMMARY | 2021-10-12 14:06 | XMS_ITS | Encounter Summary ---
:1985 Author Organization [facility] Address [address] [place] [address] Care Team Providers Name Role Phone Jie Mckeon DO Primary Care Provider Reason for Visit Reason Comments Refill SUMAtriptan (IMITREX) 100 MG tablet [Pharmacy Med Name: SUMATRIPTAN SUCC 100 MG TABLET] Encounter Details Date Type Department Care Team Description 11/03/2018 Refill [facility] 3850 Jie Mckeon, Re fill (SUMAtriptan Family Medicine DO (IMITREX) 100 MG tablet [address] [Ph armacy Med Name: Blvd. BL[address] SUMATRIPTAN SUCC 100 MG [place], [place]]) [phone] (Wo rk) Social History Tobacco Use Types [...] 75 mm Hg on 02/23/2018 Powered by MergeOptics, Reference: [id number], 11/03/2018 8:37:25 AM CDT, Pool: [id number] FM REFILL ([id number]) documented in this encounter Plan of Treatment Not on filedocumented as of this encounter Visit Diagnoses Not on filedocumented in this encounter Care Teams Process Control Supervisor Relationship Specialty Start Date End Date Jie Mckeon DO PCP - General Family Practice 04/05/16 [address] [place], [place] [address] documented as of this encounter
--- OUTSIDE RECORDS SUMMARY | 2021-10-12 14:06 | XMS_ITS | Encounter Summary ---
:1985 Author Organization [facility] Address [address] [place] [address] Care Team Providers Name Role Phone Jie Mckeon DO Primary Care Provider Reason for Visit Reason Onset Date Comments Refill 03/29/2020 SUMAtriptan (IMITREX ) 100 MG tablet Encounter Details Date Type Department Care Team Description 03/29/2020 Refill [facility] 3850 Jie Mckeon, Re fill (SUMAtriptan Family Medicine DO (IMITREX) 100 MG [address] [place] [address] tab let) [place] [phone] (Wo rk) Social History Tobacco Use Types [...] Tablet by mouth as needed for Migraine. CIAN INSTRUMENTAL Keven Leblanc, RN - 03/29/2020 12:32 PM CST 90 day supply given per Emergency Refill Standing Order. Keven Leblanc RN 03/29/2020, 12:32 PM CIAN INSTRUMENTAL Interface, Out NX Pharmagen Prov Query - 03/29/2020 10:06 AM CST [...] MCKEON) Next scheduled visit: None Powered by [facility], Reference: [id number], 03/29/2020 10:06:04 AM MUSICIAN INSTRUMENTAL, Pool: [id number] FM REFILL ([id number]) CIAN INSTRUMENTAL documented in this encounter Plan of Treatment Not on filedocumented as of this encounter Visit Diagnoses Not on filedocumented in this encounter Care Teams Mcat Instructor Relationship Specialty Start Date End Date Jie Mckeon DO PCP - General Family Practice 04/05/16 [address] [place] [address] documented as of this encounter
--- OUTSIDE RECORDS SUMMARY | 2021-10-12 14:06 | XMS_ITS | Encounter Summary ---
:1985 Author Organization [employer] Address [address] [place] [address] Care Team Providers Name Role Phone Jie Mckeon DO Primary Care Provider Reason for Visit Reason Comments Refill SUMAtriptan (IMITREX) 100 MG tablet [Pharmacy Med Name: SUMATRIPTAN SUCC 100 MG TABLET] Encounter Details Date Type Department Care Team Description 07/12/2017 Refill [facility] 3850 Jie Mckeon, Re fill (SUMAtriptan Family Medicine DO (IMITREX) 100 MG tablet [address] [Ph armacy Med Name: Bl[address]. BL[address] SUMATRIPTAN SUCC 100 MG [place], [place]]) [id number] [phone] (Wo rk) Social History Tobacco Use Types [...] 74 mm Hg on 04/09/2017 Powered by UXPin, Reference: [id number], 07/12/2017 6:02:29 PM CDT, Pool: [id number] FM REFILL ([id number]) Electronically signed by Interface, Out SureAlluring LogicriRockwell Medical Prov Query at 07/15/2017 3:25 PM CDT documented in this encounter Plan of Treatment Not on filedocumented as of this encounter Visit Diagnoses Not on filedocumented in this encounter Care Teams Rn Hyperbaric Relationship Specialty Start Date End Date Jie Mckeon DO PCP - General Family Practice 04/05/16 [address] [place] [address] documented as of this encounter
--- OUTSIDE RECORDS SUMMARY | 2021-10-12 14:06 | XMS_ITS | Encounter Summary ---
:1985 Author Organization [facility] Address [address] [place] [address] Care Team Providers Name Role Phone Jie Farah DO Primary Care Provider Reason for Visit Reason Comments MEDICATION CHECK migraine Encounter Details Date Type Department Care Team Description 02/23/2018 Office Visit [facility] 3850 Jie Farah, [place] graine without aura Family Medicine DO and without status [address] rainosus, not [address] intractable (Primary [place], [place] Dx ) [phone] (Wo rk) Social History Tobacco Use Types [...] Comments Blood Pressure 108/75 02/23/2018 9:02 AM PARK SUPERINTENDENT Pulse 73 02/23/2018 9:02 AM PARK SUPERINTENDENT Temperature - - Respiratory Rate - - Oxygen Saturation - - Inhaled Oxygen Concentration - - Weight 51.3 kg (113 lb) 02/23/2018 9:02 AM PARK SUPERINTENDENT Height - - Body Mass Index 18.1 04/09/2017 3:19 PM PARK SUPERINTENDENT documented in this encounter Patient Instructions Patient InstructionsJj Campoverde, STRAW HAT WASHER OPERATOR - 02/23/2018 9:00 AM CST Images from [...] for dessert. Limit deep-fried vegetables, such as kenyan fries. ? Choose lean protein, such as [...] that works best for you. ? For [facility], call [phone]. ? For [facility], call [phone]. ? For [facility], call [phone]. ? For [facility], call [phone]. ? For [facility], call [phone]. (06/2017) ??[facility] SUPERINTENDENT documented in this encounter Progress Notes Jj Campoverde CMA - 02/23/2018 9:00 AM CST Medications needing refills have been pended for year supply. Requested Prescriptions Pending Prescriptions Disp Refills ??? SUMAtriptan (IMITREX) 100 MG tablet 54 Tablet 0 Sig: Take 1 Tablet by mouth as needed for Migraine. May repeat after 2 hours if needed. Max 2 tabs/24 hours. Max 9 days/month SUPERINTENDENT Jie Farah DO - 02/23/2018 9:00 AM [...] D as well to help prevent migraines. SUPERINTENDENT documented in this encounter Plan of Treatment Not on filedocumented as of this encounter Visit Diagnoses Diagnosis Migraine without aura and without status migrainosus, not intractable - Primary Migraine without aura, without mention o f intractable migraine without mention of status migrainosus documented in this encounter Care Teams Reel Worker Relationship Specialty Start Date End Date Jie Farah DO PCP - General Family Practice 04/05/16 [address] [place] [address] documented as of this encounter
--- OUTSIDE RECORDS SUMMARY | 2021-10-12 14:06 | XMS_ITS | Encounter Summary ---
:1985 Author Organization [facility] Address [address] [place] [address] Care Team Providers Name Role Phone Jie Farah DO Primary Care Provider Reason for Visit Reason Onset Date Comments Refill 02/18/2018 Encounter Details Date Type Department Care Team Description 02/18/2018 Refill [facility] 3850 Family Jie Roper, Refill Medicine [address] [place] [address] [place] [address] [place], [place] [address] [phone] Social History Tobacco Use Types Packs/Day Years [...] AM CST See Refill Encounter dated 02/12/18 PING MACHINE OPERATOR documented in this encounter Plan of Treatment Not on filedocumented as of this encounter Visit Diagnoses Not on filedocumented in this encounter Care Teams Landscape Manager Relationship Specialty Start Date End Date Jie Farah DO PCP - General Family Practice 04/05/16 [address] [place] [address] documented as of this encounter
--- OUTSIDE RECORDS SUMMARY | 2021-10-12 14:06 | XMS_ITS | Encounter Summary ---
:1985 Author Organization [facility] Address [address] [place] [address] Care Team Providers Name Role Phone Sofi Jie Rock DO Primary Care Provider Reason for Visit Reason Comments Annual Exam Encounter Details Date Type Department Care Team Description 04/09/2017 [facility] Nanette Kay Well female exam with routine gynecological exam (Primary Dx); Obstetrics/Gynecolog DIRECTOR MEETINGS, PLANT UTILITIES ENGINEER Oral contraceptive pill surveillance y [address] [facility] 5th [place] [address] [phone] (Wo rk) Social History Tobacco Use Types [...] Comments Blood Pressure 110/74 04/09/2017 3:19 PM SUPERVISOR KNITTING Pulse 82 04/09/2017 3:19 PM SUPERVISOR KNITTING Temperature - - Respiratory Rate - - Oxygen Saturation - - Inhaled Oxygen Concentration - - Weight 53.3 kg (117 lb 6.4 oz) 04/09/2017 3:19 PM SUPERVISOR KNITTING Height 168.3 cm (5' 6.25) 04/09/2017 3:19 PM SUPERVISOR KNITTING Body Mass Index 18.81 04/09/2017 3:19 PM SUPERVISOR KNITTING documented in this encounter Patient Instructions Patient [...] continue your pills. I am available at [phone] or through [facility] if you have any concerns. Happy Liane's Day. I hope you are feeling better.soon.. RVISOR KNITTING documented in this encounter Progress Notes Nanette Kay APRN, CNP - 04/09/2017 3:30 PM CST Subjective: Simona Ceh is a 31 y.o. partnered female with [...] continue your pills. I am available at [phone] or through [facility] if you have any concerns. Happy Rob's Day. I hope you are feeling better.soon.. Current Control:OCPs RVISOR KNITTING documented in this encounter Plan of Treatment Not on filedocumented as of this encounter Visit Diagnoses Diagnosis Well female exam with routine gynecologi bre exam - Primary Routine gynecological examination Oral contraceptive pill surveillance Surveillance of previously prescribed co ntraceptive pill documented in this encounter Care Teams Hotel Room Attendant Relationship Specialty Start Date End Date Jie Farah DO PCP - General Family Practice 04/05/16 [address] [place] [address] documented as of this encounter
--- OUTSIDE RECORDS SUMMARY | 2021-10-12 14:06 | XMS_ITS | Encounter Summary ---
:1985 Author Organization [facility] Address [address] [place] [address] Care Team Providers Name Role Phone Jie Farah DO Primary Care Provider Encounter Details Date Type Department Care Team Description 05/06/2020 Immunization [place] COVGA Encounter for Vaccine Program administration of vaccine [address] (Primary Dx) [place], [place] [address] Social History Tobacco Use Types [...] Primary documented in this encounter Care Teams Director Metabolism Relationship Specialty Start Date End Date Jie Farah DO PCP - General Family Practice 04/05/16 [address] [place] [address] documented as of this encounter
--- OUTSIDE RECORDS SUMMARY | 2021-10-12 14:06 | XMS_ITS | Encounter Summary ---
:1985 Author Organization [facility] Address [address] [place] [address] Care Team Providers Name Role Phone Jie Farah DO Primary Care Provider Encounter Details Date Type Department Care Team Description 06/05/2020 Immunization [place] COVMO Encounter for Vaccine Program administration of vaccine [address] (Primary Dx) [place], [place] [address] Social History Tobacco Use Types [...] Primary documented in this encounter Care Teams Gathering Machine Setter Relationship Specialty Start Date End Date Jie Farah DO PCP - General Family Practice 04/05/16 [address] [place] [address] documented as of this encounter
--- OUTSIDE RECORDS SUMMARY | 2021-10-12 14:06 | XMS_ITS | Encounter Summary ---
:1985 Author [facility] Address [address] [place] [address] Care Team Providers Name Role Phone Jie Farah DO Primary Care Provider Reason for Visit Reason Comments Sore Throat Encounter Details Date Type Department Care Team Description 05/18/2019 Nurse Triage [facility] Nurse Line Jie Farah, DO Sore Throat [address] [facility] [address] [place], [place] [address] [place] [address] [phone] Social History Tobacco Use Types Packs/Day Years [...] to watch [facility] and [facility] She also returned from [facility] on 05/07/19. Problem list reviewed as related to this call. Reason for Disposition ? ? [1] Sore throat is the only symptom AND [2] sore throat present < 48 hours Protocols used: SORE [id number]-PT documented in this encounter Plan of Treatment Not on filedocumented as of this encounter Visit Diagnoses Not on filedocumented in this encounter Care Teams House Registry Rn Relationship Specialty Start Date End Date Jie Farah DO PCP - General Family Practice 04/05/16 [address] [place] [address] documented as of this encounter
--- OUTSIDE RECORDS SUMMARY | 2021-10-12 14:07 | XMS_ITS | Encounter Summary ---
:1985 Author Organization [facility] Address [address] [place] [address] Care Team Providers Name Role Phone Jie Farah DO Primary Care Provider Reason for Visit Reason Comments MEDICATION CHECK Encounter Details Date Type Department Care Team Description 05/14/2016 Office Visit [facility] [address] Jie Farah, [place] graine without aura Family Medicine DO and without status [address] rainosus, not [address] intractable (Primary [place], [place] Dx ) [phone] (Wo rk) Social History Tobacco Use Types [...] Body Mass Index 19.35 03/04/2016 9:31 AM UNIVERSITY TUTOR documented in this encounter Progress Notes Jie [...] migrainosus documented in this encounter Care Teams Sustainability Consultant Relationship Specialty Start Date End Date Jie Farah DO PCP - General Family Practice 04/05/16 [address] [place] [address] documented as of this encounter
--- OUTSIDE RECORDS SUMMARY | 2021-10-12 14:07 | XMS_ITS | Encounter Summary ---
:1985 Author Organization [facility] Address [address] [place] [address] Care Team Providers Name Role Phone Denisse Sue Primary Care Provider Reason for Visit Reason Comments Refill Encounter Details Date Type Department Care Team Description 05/19/2015 [facility]ill [facility] Nanette Kay A PRN, CNP Refill Obstetrics/Gynecolog y [address] [facility] 5th [place] [address] [place], [place] [address] (Wo rk) Social History Tobacco Use Types [...] to switch pharmacies [facility] [place] and they will call [facility] [address] (which is where your prescription was sent) and they will transfer it. Thank you! Loulou Snyder STAIN REMOVER Triage ----- Message ----- From: ODESSA CHE Sent: 05/19/2015 6:56 AM CDT To: Nanette Kay APRN, CNP Subject: Medication Renewal Request Original authorizing provider: Nanette Kay APRN, SENIOR SQL SERVER DEVELOPER Odessa Che would like a refill of the following medications: norethindrone-ethinyl estradiol (MICROGESTIN FE 03/15, ,) 1 mg-20 mcg (21)/75 mg (7) per tablet [Nanette Kay APRN, DON] Preferred pharmacy: [facility] [address] [place] [address] [facility] Comment: documented in this encounter Plan of Treatment Not on filedocumented as of this encounter Visit Diagnoses Not on filedocumented in this encounter Care Teams Quality Assurance Supervisor Trim Relationship Specialty Start Date End Date Denisse Sue DO PCP - General 05/12/13 04/04/16 [address] [place], [place] [address] documented as of this encounter
--- OUTSIDE RECORDS SUMMARY | 2021-10-12 14:07 | XMS_ITS | Encounter Summary ---
:1985 Author Organization [facility] Address [address] [place] [address] Care Team Providers Name Role Phone Denisse Sue DO Primary Care Provider Reason for Visit Reason Comments Annual Exam Encounter Details Date Type Department Care Team Description 12/22/2013 [facility] Nicholas Kay, Routine gen eral medical examination at a health care facility (Primary Dx); Obstetrics/Gynecolog y DON GRATN Special screening examination for unspec ified chlamydial disease [address] [place], [place] [facility] [address] [place] [address] [place], [place] [phone] (Wo rk) Social History Tobacco Use Types [...] pending. I will forward your results through [email or web address], or call you if there are anyconcerns. In the past you have had problems with low iron causing anemia. Most recent hemoglobin was normal at12.2. Please contact me at [phone] if there is anything you need. Have a great year. IT CARD INTERVIEWER documented in this encounter Progress Notes Nicholas [...] Past Surgical History Procedure Laterality Date ??? [place] tooth extraction Family History: Family History Problem [...] Order Specific Question: Ordering Provider? (Dr, Res, TRANSFILL TECHNICIAN, or PA Only) Answer: NICHOLAS KAY [[id number]] Patient Instructions It was good to meet [...] pending. I will forward your results through [email or web address], or call you if there are anyconcerns. In the past you have had problems with low iron causing anemia. Most recent hemoglobin was normal at12.2. Please contact me at [phone] if there is anything you need. Have a great year. Current Control: Condoms IT CARD INTERVIEWER documented in this encounter Plan of Treatment [...] Component Value Ref Test Analysis Performed At [facility] gist Range Method Time Signature Source Endocervical [...] disease documented in this encounter Care Teams Lease Attendant Relationship Specialty Start Date End Date Denisse Sue DO PCP - General 05/12/13 04/04/16 [address] [place] [address] documented as of this encounter
--- OUTSIDE RECORDS SUMMARY | 2021-10-12 14:07 | XMS_ITS | Encounter Summary ---
:1985 Author Organization [facility] Address [address] [place] [address] Care Team Providers Name Role Phone Denisse Sue DO Primary Care Provider Reason for Visit Reason Comments Annual Exam Encounter Details Date Type Department Care Team Description 03/02/2015 [facility] Nicholas Kay Preventativ e health care (Primary Dx); Obstetrics/Gynecolog DON GRANT Pap smear, as part of routine gynecologi bre examination; y [address] Screen for STD (sexually tra nsmitted disease); [address] Counseling for control, oral contr aceptives [facility] [address] [place] [address] [place], [place] [phone] [address] Social History Tobacco Use Types Packs/Day Years Used Date Smoking Tobacco: Never Assessed Sex Assigned at Date Recorded Not on file documented as of this encounter Last Filed Vital Signs Vital Sign Reading Time Taken Comments Blood Pressure 109/73 03/02/2015 8:28 AM PUBLIC HEALTH REPRESENTATIVE Pulse 65 03/02/2015 8:28 AM PUBLIC HEALTH REPRESENTATIVE Temperature - - Respiratory Rate - - Oxygen Saturation - - Inhaled Oxygen Concentration - - Weight 55.4 kg (122 lb 1.6 oz) 03/02/2015 8:28 AM PUBLIC HEALTH REPRESENTATIVE Height 168.3 cm (5' 6.25) 03/02/2015 8:28 AM PUBLIC HEALTH REPRESENTATIVE Body Mass Index 19.56 03/02/2015 8:28 AM PUBLIC HEALTH REPRESENTATIVE documented in this encounter Patient Instructions Patient [...] infection identified your results will be on [facility] . Your control pills have been refilled [...] for evaluation. I am always available through [facility] or by calling the nurse triage line at [phone]. Have a great 2016 Kimberley! IC HEALTH REPRESENTATIVE documented in this encounter Progress Notes Amy Romero RN - 03/09/2015 8:57 AM PUBLIC HEALTH REPRESENTATIVE Quick Note: Dear Simona, I am writing [...] call Cervical Cancer Screening and Management Team [phone] Sincerely, Amy Romero RN on behalf of Dr. Airam Obando, Commercial Baker Helper [address] Cervical Cancer Screening and Management IC HEALTH REPRESENTATIVE Nicholas Kay APRN, CNP - 03/02/2015 9:07 [...] Past Surgical History Procedure Laterality Date ??? [place] tooth extraction ??? Foot surgery 2012 Family [...] part of routine gynecological examination Z12.4 V76.2 ID OBTAINING SCREEN PAP SMEAR Pap Test Order [...] Order Specific Question: Ordering Provider? (, Miladys, FOUR H AGENT, or PA Only) Answer: NICHOLAS KAY [[id number]] ??? Pap Test Order Order Specific Question: LMP (Date) Answer: 02/26/15 Order Specific Question: Abnormal Bleeding? Answer: No Order Specific Question: Menstrual Status Answer: None Apply Order Specific Question: Current form of therapy Answer: Hormone Therapy Order Specific Question: Hx of abnormal Pap test/COLOR MAKER FORMULATOR cancer outside of [facility]? Answer: No Order Specific Question: Pap Source Answer: Cervical Order Specific Question: Pap test type Answer: Screening Order Specific Question: HPV Testing Answer: HPV Regardless of Pap Results (Screening age 30+) Order Specific Question: Ordering Provider? (Miladys [place], FOUR H AGENT, or PA Only) Answer: NICHOLAS KAY [[id number]] ??? HPV with 16 18 Genotyping ??? ID OBTAINING SCREEN PAP SMEAR ??? norethindrone-ethinyl estradiol [...] weeks, [facility] A culture for gonorrhea and Chlamydia was collected. You will be called with these results indicate infection and treatment, otherwise if no infection identified [facility] . Your control pills have been [...] for evaluation. I am always available through [facility] or by calling the nurse triage line at [phone]. Have a great 2016 Kimberley! Current Control: Oral contraceptives IC HEALTH REPRESENTATIVE documented in this encounter Miscellaneous Notes Miscellaneous [...] test results, callCervical Cancer Screening and Management [phone],Leslie B Carpenter, RN on behalf ofDr. Airam Obando, Medical DirectorDeer River Health Care Center Cervical Cancer Screening and Management IC HEALTH REPRESENTATIVE Miscellaneous - 04/03/2016 11:05 PM CSTNotes Recorded [...] test results, callCervical Cancer Screening and Management [phone],Amy Romero, RN on behalf ofDr. Airam Obando, Medical DirectorPark Laurence Cervical Cancer Screening and Management IC HEALTH REPRESENTATIVE documented in this encounter Plan of Treatment Not on filedocumented as of this encounter Procedures Procedure Name Priority Date/Time Associated Diagnosis Comme nts CHLAMYDIA & GC (14 Routine 03/02/2015 9:08 AM Screen for STD R esults for this YEARS AND OLDER) PUBLIC HEALTH REPRESENTATIVE (sexually transmitted pr ocedure are in disease) the results section. PAP TEST ORDER Routine 03/02/2015 8:59 AM Pap smear, as part o f Results for this PUBLIC HEALTH REPRESENTATIVE routine gynecological proced ure are in examination the results section. HPV WITH 16 18 Routine 03/02/2015 8:59 AM Results for this GENOTYPING, PUBLIC HEALTH REPRESENTATIVE procedure are i n CERVICAL/ENDOCERVIC the resu lts AL section. ANATOMICAL PATH Routine 03/02/2015 8:59 AM Result s for this LIQUID BASED PUBLIC HEALTH REPRESENTATIVE procedure are i n the results section. documented in this encounter Results Chlamydia & GC (03/02/2015 9:08 AM PUBLIC HEALTH REPRESENTATIVE) [facility] gist Method Time Signature Chlamydia Negative Negative HP CONVERSION Trachomatis STD Comment: Test Performed by Electrical Assistant Mediated Amplification CLIA Number [id number] N. gonorrhoeae STD Negative Negative HP CONVERSI ON Comment: Test Performed by Electrical Assistant Mediated Amplification Performed at [facility], [address] ??[address] CLIA Number [id number] Source STD Cervix HP CONVERSION Comment: CLIA Number [id number] Specimen Anatomical Collection Method Collection Time Receive d Time (Source) Location / / Volume Laterality 03/02/2015 9:08 AM 6 3:29 PUBLIC HEALTH REPRESENTATIVE PM PUBLIC HEALTH REPRESENTATIVE Nicholas A Rahul GRANT, TABLET TESTER LAB_1 Performing Organization Address City/State/ZIP Code Phon e Number HP CONVERSION Pap Smear (03/02/2015 8:59 AM PUBLIC HEALTH REPRESENTATIVE) Specimen (Source) Anatomical Collection Method Collection Time Re ceived Time Location / / Volume Laterality 03/02/2015 8:59 AM PUBLIC HEALTH REPRESENTATIVE Narrative HP CONVERSION - 03/06/2015 5:14 PM PUBLIC HEALTH REPRESENTATIVE FINAL GYNECOLOGICAL CYTOLOGY REPORT Pathology #: [id number] ?Date Obtained: 03/02/2015 ? Date Received: 03/03/2015 [...] occur. ? End of Report Performed at [facility], [address] [place] [address] Transcriptions 04/03/2016 11:05 PM CSTNotes Recorded by Amy Romeor RN on 03/09/2015 at 8:57 Stanley Jarvis, [...] results, call Cervical Cancer Screening and Management [phone],Amy Romero RN on behalf ofDr. Airam Obando, Commercial Baker Helper [facility] Cervical Cancer Screening and Management Nicholas Kay APRN, TABLET TESTER LAB_1 Performing Organization Address City/State/ZIP Code Phon e Number HP CONVERSION HPV with 16 18 Genotyping (03/02/2015 8:59 AM PUBLIC HEALTH REPRESENTATIVE) [facility] Method Time Signature HPV High Risk Not [...] and its pe rformance characteristics determined by [facility]. It has not been cleared or approved by [facility]. The laboratory is regulated under CLIA as qualified to perform high-complexity testing. This test is used for clinical purposes. It should not be regarded as investigational or fo r research. Specimen Anatomical Collection Method Collection Time Receive d Time (Source) Location / / Volume Laterality 03/02/2015 8:59 AM 6 8:59 PUBLIC HEALTH REPRESENTATIVE AM PUBLIC HEALTH REPRESENTATIVE Narrative HP CONVERSION - 03/08/2015 2:17 PM PUBLIC HEALTH REPRESENTATIVE Performed at [facility], [facility] [place] [address] CLIA number [id number] Transcriptions 04/03/2016 11:05 PM CSTNotes Recorded by [...] results, call Cervical Cancer Screening and Management [phone] Contreras RN on behalf ofDr. Airam Obando, Commercial Baker Helper Rosalinda Bradyllet Cervical Cancer Screening and Management Nicholas Kay APRN, DON LAB_1 Performing Organization Address [facility] Phon e Number HP CONVERSION Pap Test Order (03/02/2015 8:59 AM PUBLIC HEALTH REPRESENTATIVE) [facility] Method Time Signature Pap Smear Collected HP CONVERSION Monolayer tracking test Specimen Anatomical Collection Method Collection Time Receive d Time (Source) Location / / Volume Laterality 03/02/2015 8:59 AM 6 8:49 PUBLIC HEALTH REPRESENTATIVE AM PUBLIC HEALTH REPRESENTATIVE Nicholas Kay APRN, DON LAB_1 Performing Organization Address [facility] Phon e Number HP CONVERSION [...] contraceptives documented in this encounter Care Teams Business Analysis Specialist Relationship Specialty Start Date End Date Denisse Sue DO PCP - General 05/12/13 2 [address] [place] [address] documented as of this encounter
--- OUTSIDE RECORDS SUMMARY | 2021-10-12 14:07 | XMS_ITS | Encounter Summary ---
:1985 Author Organization [facility] Address [address] [place] [address] Care Team Providers Name Role Phone Jie Farah DO Primary Care Provider Reason for Visit Reason Comments Refill Encounter Details Date Type Department Care Team Description 03/12/2017 [facility]ill [facility] Nanette Kay A PRN, PAINT ROLLER COVERMAKER Refill Obstetrics/Gynecolog y [address] [facility] [address] [place] [address] [place], [place] [address] (Wo rk) Social History Tobacco Use Types [...] Department Center 04/09/2017 3:30 PM Nanette Kay, PIPE WELDER, PAINT ROLLER COVERMAKER HVC OBG PN [facility] TY COMMISSIONER Jie Sheehan RN - 03/12/2017 11:49 AM [...] 02/13/17 Prescribing provider- rice No future appointments. TY COMMISSIONER documented in this encounter Plan of Treatment Not on filedocumented as of this encounter Visit Diagnoses Not on filedocumented in this encounter Care Teams Box Toe Flanger Stitchdowns Relationship Specialty Start Date End Date Jie Farah DO PCP - General Family Practice 04/05/16 [address] [place] [address] documented as of this encounter
--- OUTSIDE RECORDS SUMMARY | 2021-10-12 14:07 | XMS_ITS | Encounter Summary ---
:1985 Author Organization [facility] Address [address] [place] [address] Care Team Providers Name Role Phone Denisse Sue Primary Care Provider Reason for Visit Reason Comments Post-Op Check Encounter Details Date Type Department Care Team Description 06/14/2013 Office Visit [facility] [address] Nurse, P3900 Pod Local ized superficial Podiatric MedSurg swelling, mass, or lump [address] (Primary Dx) [place] [address] Social History Tobacco Use Types Packs/Day Years [...] number to call with any concerns is [phone] documented in this encounter Progress Notes Priscilla [...] Primary documented in this encounter Care Teams Electronic Induction Hardener Relationship Specialty Start Date End Date Denisse Sue DO PCP - General 05/12/13 04/04/16 [address] [place], [place] [address] documented as of this encounter
--- OUTSIDE RECORDS SUMMARY | 2021-10-12 14:07 | XMS_ITS | Encounter Summary ---
:[address] [facility] Address [address] [place] [address] Care Team Providers Name Role Phone Linette, Denisse Mane ZARAGOZA Primary Care Provider Reason for Visit Reason Comments Post-Op Check Encounter Details Date Type Department Care Team Description 07/21/2013 Office Visit [facility] [address] Elizabeth Hurtado toperative Podiatric MedSurg FAN Gilliam follow-up (Primary Dx) [address] [place] [address] [facility] [place] [phone] (Wo rk) Social History Tobacco Use Types Packs/Day Years Used Date Smoking Tobacco: Never Assessed Sex Assigned at Date Recorded Not on file documented as of this encounter Progress Notes Elizabeth Hurtado DPM - 07/21/2013 9:05 AM CDT Progress Notes signed by Elizabeth Hurtado DPM at 07/21/13 2545 Author: Elizabeth Hurtado DPM Service: (none) Author Type: Physician Filed: 07/21/13 6489 Note Time: 07/21/131217 Status: Signed Cane Burner: Elizabeth Hurtado DPM (Physician) NAME: ODESSA CHE MR#: [id number] CSN: [id number] AUTHENTICATING CLINICIAN: Elizabeth Hurtado DPM CONFIRM #: [id number] LOC: 439 CLINIC PROGRESS NOTE DATE OF [...] another month. She can continue with an ljyh-prs-vitavpu scar product, such as a silicone gel product. Will release her today since she is doing quite well. Physical therapy referral was placed in case she would like to proceed with that if needed. SMS:MEDQ C: CONFIRM #: [id number] documented in this encounter Plan of Treatment Not on filedocumented as of this encounter Visit Diagnoses Diagnosis Postoperative follow-up - Primary Follow-up examination, following unspeci fied surgery documented in this encounter Care Teams Cake Knocker Relationship Specialty Start Date End Date Denisse Sue DO PCP - General 05/12/13 04/04/16 [address] [place] [address] documented as of this encounter
--- OUTSIDE RECORDS SUMMARY | 2021-10-12 14:07 | XMS_ITS | Encounter Summary ---
:1985 Author Organization [facility] Address [address] [place] [address] Care Team Providers Name Role Phone MireilleJie jones Shweta ZARAGOZA Primary Care Provider Reason for Visit Reason Comments Refill [place] Encounter Details Date Type Department Care Team Description 02/12/2017 [facility]ill [facility] Nicholas Kay A PRN, STEAMTABLE WORKER Refill ([place]) Obstetrics/Gynecolog y [address] [facility] 5th [place] [address] [place], [place] [phone] (Wo rk) Social History Tobacco Use Types [...] Provider: NICHOLAS KAY Ordering User: RUIZ RENEE INOMETER TESTER documented in this encounter Plan of Treatment Not on filedocumented as of this encounter Visit Diagnoses Not on filedocumented in this encounter Care Teams Ear Nose Throat Physician Relationship Specialty Start Date End Date Jie Farah DO PCP - General Family Practice 04/05/16 [address] [place] [address] documented as of this encounter
--- OUTSIDE RECORDS SUMMARY | 2021-10-12 14:07 | XMS_ITS | Encounter Summary ---
:1985 Author Organization [employer] Address [address] [place] [address] Care Team Providers Name Role Phone Linette, Denisse Mane DO Primary Care Provider Reason for Visit Reason Comments Dysuria Encounter Details Date Type Department Care Team Description 09/25/2014 Hospital Encounter [facility] Yancy Isaac, Dysuria [address] [place] [address] [facility] [address] [facility] [phone] [place], [place] [address] (Wo rk) Social History Tobacco Use Types [...] (A) Collection Time Result Time U Specific Trail Urobilinogen Urine 09/25/14 08:54:00 09/25/14 09:09:00 1.020 Negative Final result Narrative: Performed at [facility], [address] [place] [address] Urine Microscopic: (Final result) Abnormal Component (Lab [...] from the original note were not included. [facility] [address] [facility] [address] [place] [address] Dept: [phone] [email or web address] Simona Che 09/25/2014 8:54 AM Hospital Encounter Description: Female : 1985 Department: [facility] Dept Thank you for choosing [facility] for your health care visit with Yancy Isaac MD. We are happy to care for you and provide this summary of your visit. Your primary family day care worker is currently listed as Denisse Sue DO (General). HERE IS WHAT YOU NEED TO KNOW To learn how you can take steps to stay as healthy as you can be visit [email or web address] Discharge Instructions Painful Urination (Dysuria): After [...] Where can you learn more? Go to FuelMyBlog/ArthroCAD and enter H814 in the search box. Current as of: November 02, 2013 Content Version: 10.4 ?? [id number] [employer]. HERE IS WHAT YOU NEED TO DO Call your clinic if: You develop new symptoms Your symptoms worsen unexpectedly You are not improving as expected You have questions about your visit or medications Future Appointments Provider Department Dept Phone 09/26/2014 3:00 PM Nanette Kay APRN, GUEST ASSOCIATE [facility] Obstetrics/Gynecology [phone] Please arrive 15 minutes early with your [...] 100 Neg - Trace mg/dL U Specific Trail 1.020 1.005 - 1.030 Urobilinogen Urine Negative [...] Ethnicity Preferred Language 1985 Female White Non- Sri Lankan This document contains confidential information about your [...] (ABNORMAL) Urine Culture (09/25/2014 9:30 AM CDT) [facility] Method Time Signature Source Urine HP CONVERSION [...] - 09/27/2014 6:06 AM CDT Performed at [facility] , ??[address] [place] [address], ?? CLIA Number [id number] Transcriptions 09/25/2014 9:30 AM CDTNotes Recorded by [...] Yancy Isaac MD LAB_1 Performing Organization Address City/[facility] Phon e Number HP CONVERSION (ABNORMAL) URINE MICROSCOPIC (09/25/2014 8:54 AM CDT) [facility] idemama Method Time Signature Urine WBC 5-9 (A) [...] - 09/25/2014 9:11 AM CDT Performed at [place] [address] Yancy Isaac MD LAB_1 Performing Organization Address [facility] Phon e Number HP CONVERSION (ABNORMAL) URINALYSIS ROUTINE(MICRO IF POS) (09/25/2014 8:54 AM CDT) [facility] Method Time Signature Urine Type Urine:clean HP [...] U Specific 1.020 1.005 - HP CONVERSION Trail 1.030 Urobilinogen Negative Negative HP CONVERSION Urine Eu/dL Specimen Anatomical Collection Method Collection Time Receive d Time (Source) Location / / Volume Laterality Urine: 09/25/2014 8:54 AM 5 9:03 CDT AM CDT Narrative HP CONVERSION - 09/25/2014 9:09 AM CDT Performed at [facility], [address] [place] [address] Yancy Isaac MD LAB_1 Performing Organization Address [...] pills documented in this encounter Care Teams American Studies Professor Relationship Specialty Start Date End Date Denisse Sue, PCP - General 05/12/13 2 [address] [place] [address] documented as of this encounter
--- OUTSIDE RECORDS SUMMARY | 2021-10-12 14:07 | XMS_ITS | Encounter Summary ---
:1985 Author Organization [employer] Address [address] [place] [address] Care Team Providers Name Role Phone Jie Farah DO Primary Care Provider Reason for Visit Reason Onset Date Comments Refill 06/19/2016 Encounter Details Date Type Department Care Team Description 06/19/2016 Refill [facility] 3850 Family Denisse Sue, DO Refill Medicine [address] [place] [address] [place], [place] [address] [phone] Social History Tobacco Use Types Packs/Day Years [...] request Reason: RN Reviewed--Need signed order in [facility] for pended medication. Next Steps: Review pended [...] MG tablet [Denisse Sue DO] Preferred pharmacy: [address] Comment: Good Morning, I saw Dr. Farah earlier this month regarding a refill on this prescription. I am looking to have it refilled at the pharmacy. Could you please submit the new prescription? Thank you. documented in this encounter Plan of Treatment Not on filedocumented as of this encounter Visit Diagnoses Not on filedocumented in this encounter Care Teams Cashier Ticket Selling Relationship Specialty Start Date End Date Jie Farah DO PCP - General Family Practice 04/05/[address] [place] [address] documented as of this encounter
--- OUTSIDE RECORDS SUMMARY | 2021-10-12 14:07 | XMS_ITS | Encounter Summary ---
:1985 Author Organization [facility] Address [address] [place] [address] Care Team Providers Name Role Phone Jie Farah DO Primary Care Provider Reason for Visit Reason Comments Refill SUMAtriptan (IMITREX) 100 MG tablet [Pharmacy Med Name: SUMATRIPTAN SUCC 100 MG TABLET] Encounter Details Date Type Department Care Team Description 06/19/2016 Refill [facility] [address] Laura Kennedy, Refill (SUMAtriptan Family Medicine [address] (IMITREX) 100 MG tablet [address] [Pharmacy Med Name: [place]vd[address] [place] SUMATRIPTAN SUCC 100 [place] [address] TABLET]) [address] [phone] Social History Tobacco Use Types Packs/Day Years [...] 76 mm Hg on 05/14/2016 Powered by [employer], Reference: [id number], 06/19/2016 7:15:38 AM CDT, Pool: [id number] FM REFILL ([id number]) documented in this encounter Plan of Treatment Not on filedocumented as of this encounter Visit Diagnoses Not on filedocumented in this encounter Care Teams Business Liaison Manager Relationship Specialty Start Date End Date Jie Farah DO PCP - General Family Practice 04/05/16 [address] [place] [address] documented as of this encounter
--- OUTSIDE RECORDS SUMMARY | 2021-10-12 14:07 | XMS_ITS | Encounter Summary ---
:1985 Author Organization [facility] Address [address] [place] [address] Care Team Providers Name Role Phone Denisse Sue DO Primary Care Provider Reason for Visit Reason Comments Refill Encounter Details Date Type Department Care Team Description 12/06/2014 Office Visit [facility] Nanette Kay, Counseling for Obstetrics/Gynecolog DON GRANT control, oral y [address] contraceptives (Primary [address] Dx) [facility] [address] [place] [address] [place], [place] [phone] Social History Tobacco Use Types Packs/Day Years [...] encounter Patient Instructions Patient InstructionsNanette Kay, JUANITA, MAILS SUPERVISOR - 12/06/2014 9:33 AM CDT Thank you [...] smear for February 2015. You can call [phone] to set the appointment. I am available at [phone] or through [employer] if your have any questions. documented in [...] smear for February 2015. You can call [phone] to set the appointment. I am available at [phone] or through [employer] if your have any questions. The patient [...] contraceptives documented in this encounter Care Teams Manager Telecom Relationship Specialty Start Date End Date Denisse Sue DO PCP - General 05/12/13 2 [address] [place] [address] documented as of this encounter
--- OUTSIDE RECORDS SUMMARY | 2021-10-12 14:07 | XMS_ITS | Encounter Summary ---
:[address] [facility] Address [address] [place] [address] Care Team Providers Name Role Phone Linette, Denisse Mane ZARAGOZA Primary Care Provider Reason for Visit Reason Comments Post-Op Check Encounter Details Date Type Department Care Team Description 06/21/2013 Office Visit [facility] [address] Elizabeth [address]urt[address] toperative Podiatric MedSurg FAN Gilliam follow-up (Primary Dx) [address] [facility] [place] [phone] (Wo rk) Social History Tobacco Use Types Packs/Day Years Used Date Smoking Tobacco: Never Assessed Sex Assigned at Date Recorded Not on file documented as of this encounter Progress Notes Elizabeth Hurtado DPM - 06/21/2013 8:33 AM CDT Progress Notes signed by Elizabeth Hurtado DPM at 06/22/131621 Author: Elizabeth Hurtado DPM Service: (none) Author Type: Physician Filed: 06/22/131621 Note Time: 06/21/132144 Status: Signed Clerical And Administrative Workers: Elizabeth Hurtado DPM (Physician) NAME: ODESSA CHE MR#: [id number] CSN: [id number] AUTHENTICATING CLINICIAN: Elizabeth Hurtado DPM CONFIRM #: [id number] LOC: 439 CLINIC PROGRESS NOTE DATE OF [...] in Epic. ALLERGIES: Reviewed and updated in [facility]. OBJECTIVE: Incision line is well healed. [...] some scar tissue massage or use an fgsy-yke-ozhaxpu scar product such as a silicone gel product. In 2 weeks or so, she can gradually transfer to a regular shoe. No high-impact running or jumping activities for at least another month. Recheck with me in 1 month for reevaluation. SMS:MEDQ C: CONFIRM #: [id number] documented in this encounter Plan of Treatment Not on filedocumented as of this encounter Visit Diagnoses Diagnosis Postoperative follow-up - Primary Follow-up examination, following unspeci fied surgery documented in this encounter Care Teams Biodiesel Plant Superintendent Relationship Specialty Start Date End Date Denisse Sue DO PCP - General 05/12/13 04/04/16 [address] [place] [address] documented as of this encounter
--- OUTSIDE RECORDS SUMMARY | 2021-10-12 14:07 | XMS_ITS | Encounter Summary ---
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 Past Medical History: Reviewed in [facility] Social History: Reviewed in [facility] Review of Systems: See HPI, all [...] 1-2 weeks for a recheck. Contact information [address] [facility] [phone] ANY TRUCK DRIVER Cherelle Clay RN - 04/08/2015 3:32 PM CST rechecked on pt. pt states pain level now 3/10 to head. pt states feels much better. ANY TRUCK DRIVER Cherelle Clay RN - 04/08/2015 3:11 PM CST pt resting on table, no distress noted. pt states migraine 8/10 now. will monitor and recheck post Zofran and Imitrex. ANY TRUCK DRIVER documented in this encounter Miscellaneous Notes Medication [...] RN Oral - 04/08/15 1510 - - ANY TRUCK DRIVER ED AVS Snapshot - Bob Saavedra MD - 04/08/2015 3:50 PM CST Images from the original note were not included. [facility] [address] [facility] [address] [place] [address] Dept: [phone] [email or web address] Simona Che 04/08/2015 2:41 PM Hospital Encounter Description: Female : 1985 Department: [facility] Dept Thank you for choosing [facility] for your health care visit with Norman Liao MD. We are happy to care for you and provide this summary of your visit. Your primary home care rn is currently listed as Denisse Sue DO. HERE IS WHAT YOU NEED TO KNOW To learn how you can take steps to stay as healthy as you can be visit [email or web address] Discharge Instructions Migraine Headache: Care Instructions Your [...] Where can you learn more? Go to Polyera/Moser [employer] and enter U690 in the search box. Current as of: April 15, 2014 Content Version: 107 ?? 1920-0620 [employer]. HERE IS WHAT YOU NEED TO DO Call your clinic if: You develop new symptoms Your symptoms worsen unexpectedly You are not improving as expected You have questions about your visit or medications Follow-up Information Follow up with Denisse Sue DO. Specialty: Family Medicine Why: In the next 1-2 weeks for a recheck. Contact information: [address] [facility] [address] HERE IS INFORMATION FROM TODAY'S VISIT Reason [...] Ethnicity Preferred Language 1985 Female White Non- German This document contains confidential information about your health and care. It is provided directlyto you for your personal, private use only. ANY TRUCK DRIVER documented in this encounter Plan of Treatment [...] tried taking Excedrin migraine with no relief. ANY TRUCK DRIVER documented in this encounter Care Teams Centerless Grinder Operator Relationship Specialty Start Date End Date Denisse Sue DO PCP - General 05/12/13 2 [address] [place] [address] documented as of this encounter
--- OUTSIDE RECORDS SUMMARY | 2021-10-12 14:07 | XMS_ITS | Encounter Summary ---
:1985 Author Organization [facility] Address [address] [place] [address] Care Team Providers Name Role Phone Denisse Sue DO Primary Care Provider Reason for Visit Reason Comments Surgery Orders Encounter Details Date Type Department Care Team Description 05/17/2013 Notes/Orders [facility] [address], Podiatric MedSurg DPM [address] [place] [id number] [phone] Social History Tobacco Use Types Packs/Day Years Used Date Smoking Tobacco: Never Assessed Sex Assigned at Date Recorded Not on file documented as of this encounter Plan of Treatment Not on filedocumented as of this encounter Visit Diagnoses Not on filedocumented in this encounter Care Teams Granite Countertop Installer Relationship Specialty Start Date End Date Denisse Sue DO PCP - General 05/12/13 2 [address] [place], [place] [id number] documented as of this encounter
--- OUTSIDE RECORDS SUMMARY | 2021-10-12 14:07 | XMS_ITS | Encounter Summary ---
:1985 Author Organization [facility] Address [address] [place] [address] Care Team Providers Name Role Phone Denisse Sue DO Primary Care Provider Reason for Visit Reason Comments Contraception Encounter Details Date Type Department Care Team Description 09/26/2014 [facility] Nanette Kay, Other bret al Obstetrics/Gynecolog DON GRANT counseling and advice y [address] for contraceptive [address] [facility] 5th Floor management ([place], [place] Dx ) [phone] (Wo rk) Social History Tobacco Use Types [...] cycle of pills, please contact me at [phone] or through Good [employer] to review options. Take care Kimberley. documented [...] Past Surgical History Procedure Laterality Date ??? [place] tooth extraction History Social History ??? Marital [...] cycle of pills, please contact me at [phone] or through [employer] to review options. Take care Kimberley. The patient was discharged ambulatory and in stable condition. documented in this encounter Plan of Treatment Not on filedocumented as of this encounter Visit Diagnoses Diagnosis Other general counseling and advice for contraceptive management - Primary documented in this encounter Care Teams Business Performance Advisor Relationship Specialty Start Date End Date Denisse Sue DO PCP - General 05/12/13 04/04/16 [address] [place] [address] documented as of this encounter
--- OUTSIDE RECORDS SUMMARY | 2021-10-12 14:07 | XMS_ITS | Encounter Summary ---
:1985 [address] [facility] Address [address] [place] [address] Care Team Providers Name Role Phone Denisse Sue Primary Care Provider Reason for Visit Reason Comments Post-Op Check Encounter Details Date Type Department Care Team Description 05/31/2013 Office Visit [facility] 3900 Nurse, P3900 Pod Local ized superficial Podiatric MedSurg swelling, mass, or lump [address] (Primary Dx) [place] [address] Social History Tobacco Use Types Packs/Day Years [...] number to call with any concerns is [phone] documented in this encounter Progress Notes Priscilla [...] Primary documented in this encounter Care Teams Account Coordinator Relationship Specialty Start Date End Date Denisse Sue DO PCP - General 05/12/13 04/04/16 [address] [place] [address] documented as of this encounter
--- OUTSIDE RECORDS SUMMARY | 2021-10-12 14:07 | XMS_ITS | Encounter Summary ---
:1985 Author Organization [facility] Address [address] [facility] [place] [address] Care Team Providers Name Role Phone Denisse Sue DO Primary Care Provider Reason for Visit Reason Onset Date Comments Refill 12/26/2015 June Encounter Details Date Type Department Care Team Description 12/26/2015 Refill [facility] Nicholas Kay, Derick PRN, POTATO CHIP FRYER Refill () Obstetrics/Gynecolog y [address] [place] [address] [place], [place] [address] (Wo rk) Social History Tobacco Use Types [...] Department Center 03/04/2016 9:30 AM Nicholas Kay CREDIT CONTROL ADMINISTRATOR, POTATO CHIP FRYER [facility]VC OBG PN [facility] Requested Prescriptions Signed [...] tablet [Nicholas Kay APRN, CNP] Preferred pharmacy: [address] Comment: Hi - I have an [...] on filedocumented in this encounter Care Teams Waste Salvager Relationship Specialty Start Date End Date Denisse Sue DO PCP - General 05/12/13 04/04/16 [address] [place] [address] documented as of this encounter
--- OUTSIDE RECORDS SUMMARY | 2021-10-12 14:08 | XMS_ITS | Encounter Summary ---
:1985 Author Organization [facility] Address [address] [place] [address] Care Team Providers Name Role Phone Md MINA Leigh Primary Care Provider Encounter Details Date Type Department Care Team Description 04/06/2010 Office Visit [facility] Nanette Bravo, [address] [facility] Center[facility] GRANT, AGRICULTURAL [place] [address] [place] [address] [address] [place] [address] (Wo rk) Social History Tobacco Use Types Packs/Day Years Used Date Smoking Tobacco: Never Assessed Sex Assigned at Date Recorded Not on file documented as of this encounter Progress Notes Nanette Bravo, JUANITA, AGRICULTURAL RESEARCH TECHNICIAN - 04/06/2010 12:01 AM CST SUBJECTIVE: Simona Ceh 24-year-old female here for followup urgent care [...] discharged ambulatory and in stable condition. *SH~DNS~SOAP RVISOR MATRIX documented in this encounter Plan of Treatment Not on filedocumented as of this encounter Visit Diagnoses Not on filedocumented in this encounter Care Teams Nickel Plater Relationship Specialty Start Date End Date Md Leigh MD PCP - General 05/26/10 05/11/13 [place] [address] documented as of this encounter
--- OUTSIDE RECORDS SUMMARY | 2021-10-12 14:08 | XMS_ITS | Encounter Summary ---
:1985 Author Organization [employer] Address [address] [place] [address] Care Team Providers Name Role Phone Md MINA Leigh Primary Care Provider Reason for Visit Reason Comments Follow-up Encounter Details Date Type Department Care Team Description 12/13/2011 Office Visit [facility] [address] Axil lary odor Family Medicine DX BOARD OPERATOR, BOLT MAKER (Primary Dx) 3850 [facility] [address] [place] [address] [phone] Social History Tobacco Use Types Packs/Day Years [...] glands documented in this encounter Care Teams Track And Field Coach Relationship Specialty Start Date End Date Md Leigh MD PCP - General 05/26/10 05/11/13 [place] [address] documented as of this encounter
--- OUTSIDE RECORDS SUMMARY | 2021-10-12 14:08 | XMS_ITS | Encounter Summary ---
:1985 Author Organization [facility] Address [address] [place] [address] Care Team Providers Name Role Phone Md MINA Leigh Primary Care Provider Encounter Details Date Type Department Care Team Description 03/31/2010 PN Conversion Only AUTOMOTIVE POWER ELECTRONICS ENGINEER [address], [address] [place] [address] [place], [place] [id number] (Wo rk) Social History Tobacco Use Types Packs/Day Years Used Date Smoking Tobacco: Never Assessed Sex Assigned at Date Recorded Not on file documented as of this encounter Plan of Treatment Not on filedocumented as of this encounter Procedures Procedure Name Priority Date/Time Associated Comments Diagnosis SEXUALLY TRANSMITTED Routine 03/31/2010 9:50 AM R esults for this DISEASE PROBE FISH GRADER procedure are in the results section. COMPLETE BLOOD Routine 03/31/2010 9:50 AM Results for this COUNT-W/DIFF FISH GRADER procedure are i n the results section. DIFFERENTIAL Routine 03/31/2010 9:50 AM Results f or this FISH GRADER procedure are i n the results section. WET PREP Routine 03/31/2010 9:40 AM Results f or this FISH GRADER procedure are i n the results section. URINE MICROSCOPIC Routine 03/31/2010 8:48 AM Resu lts for this FISH GRADER procedure are i n the results section. URINALYSIS Routine 03/31/2010 8:48 AM Results f or this ROUTINE(MICRO IF POS) FISH GRADER proced ure are in the results section. URINE CULTURE Routine 03/31/2010 8:48 AM Results for this FISH GRADER procedure are i n the results section. documented in this encounter Results Sexually Transmitted Disease Probe (03/31/2010 9:50 AM FISH GRADER) [facility] Method Time Signature Sexually SEE TEXT HP CONVERSION Transmitted Disease Probe Comment: STDPR Sexually Transmitted Disease DNA Probe ? ORDERED BY: PAMELA PUGH - SOURCE: Endocervical for molecular testi ng COLLECTED: ??03/31/10 09:50 ? PLATED: ? 03/31/10 09:55 Chlamydia trachomatis DNA Probe ?FINAL ? 04/02/10 13:52 Chlamydia trachomatis NEGATIVE by DNA a mplification The amplified DNA assay is cleared by [facility] for non-medicolegal diagnostic testing in [facility] adult population. Neisseria gonorrhea DNA Probe ?FINAL ? 04/02/10 13:52 Neisseria gonorrhea NEGATIVE by DNA amp lification. The amplified DNA assay is cleared by [facility] [employer] for non-medicolegal diagnostic testing in [facility] adult population. Specimen (Source) Anatomical Collection Method Collection Time Re ceived Time Location / / Volume Laterality 03/31/2010 9:50 AM FISH GRADER Pamela Britton MD LAB_1 Performing Organization Address City/State/ZIP Code Phon e Number HP CONVERSION (ABNORMAL) Differential (03/31/2010 9:50 AM FISH GRADER) [facility] Method Time Signature Absolute 2.8 2.0 [...] / / Volume Laterality 03/31/2010 9:50 AM FISH GRADER Pamela Britton MD LAB_1 Performing Organization Address [facility] Code Phon e Number HP CONVERSION (ABNORMAL) Hemogram/Plts/Diff (03/31/2010 9:50 AM FISH GRADER) Patholo gist Method Time Signature White Blood [...] / / Volume Laterality 03/31/2010 9:50 AM FISH GRADER Pamela Britton MD LAB_1 Performing Organization Address [facility] Phon e Number HP CONVERSION Wet Prep (03/31/2010 9:40 AM FISH GRADER) P athologist Signature Wet Prep SEE TEXT [...] / / Volume Laterality 03/31/2010 9:40 AM FISH GRADER Pamela Britton MD LAB_1 Performing Organization Address [facility] Phon e Number HP CONVERSION Urine Culture (03/31/2010 8:48 AM FISH GRADER) Analysis Performed At Patho logist Time Signature [...] / / Volume Laterality 03/31/2010 8:48 AM FISH GRADER Pamela Britton MD LAB_1 Performing Organization Address [facility] Phon e Number HP CONVERSION (ABNORMAL) URINE MICROSCOPIC (03/31/2010 8:48 AM FISH GRADER) [facility] Method Time Signature White Blood >100 (A) 0 - 4 /HPF HP CONVERSION Cells Urine Red Blood Cells 3-4 (A) 0 - 2 /HPF HP CONVERSION Urine Bacteria Urine Many (A) /HPF HP CONVERSION Epithelial Moderate /HPF HP CONVERSION Cells Specimen (Source) Anatomical Collection Method Collection Time Re ceived Time Location / / Volume Laterality 03/31/2010 8:48 AM FISH GRADER Pamela Britton MD LAB_1 Performing Organization Address [facility] Phon e Number HP CONVERSION (ABNORMAL) URINALYSIS ROUTINE(MICRO IF POS) (03/31/2010 8:48 AM FISH GRADER) [facility] gist Method Time Signature Urine Type [...] U Specific <=1.005 1.005 - HP CONVERSION [place] 1.030 Urobilinogen Negative Negative HP CONVERSION Urine Eu/dL Specimen (Source) Anatomical Collection Method Collection Time Re ceived Time Location / / Volume Laterality 03/31/2010 8:48 AM FISH GRADER Pamela Britton MD LAB_1 Performing Organization Address [facility] Phon e Number HP CONVERSION documented in this encounter Visit Diagnoses Not on filedocumented in this encounter Care Teams Armoured Car Escort Relationship Specialty Start Date End Date Md Leigh MD PCP - General 05/26/10 05/11/13 [place] [address] documented as of this encounter
--- OUTSIDE RECORDS SUMMARY | 2021-10-12 14:08 | XMS_ITS | Encounter Summary ---
:1985 Author Organization [facility] Address [address] [place] [address] Care Team Providers Name Role Phone Md MINA Leigh Primary Care Provider Reason for Referral Specialty Diagnoses / Procedures Referred By Contact Refer red To Contact Laverne Polanco MD [address] [facility] [address] [place] [address] Referral ID Status Reason Start Date Expiration Date Visits Requ ested Visits Authorized Reason for Visit Reason Comments CONSULT Encounter Details Date Type Department Care Team Description 08/27/2011 Surgical Consult [facility] Angelica Thomas, [facility] MD Elliott (Primary Dx) [address] [facility] [place] [address] [phone] Social History Tobacco Use Types Packs/Day Years [...] 09/03/11816 Note Time: 08/27/11 1641 Status: Signed Vehicle Fare Collector: Angelica Thomas MD (Physician) NAME: ODESSA CHE VISIT: [id number] DICTATING CLINICIAN: ANGELICA THOMAS MD JOB: [id number] Med JOB: [id number] LOC: 3711 CLINIC PROGRESS NOTE DATE OF [...] 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 She is a nonsmoker. Drinks alcohol [...] she is doing well. We have discussed exterminator outcome, possible return to running date [...] patella documented in this encounter Care Teams Housing Relocation Relationship Specialty Start Date End Date Md Leigh MD PCP - General 05/26/10 05/11/13 [place] [address] documented as of this encounter
--- OUTSIDE RECORDS SUMMARY | 2021-10-12 14:08 | XMS_ITS | Encounter Summary ---
:1985 Author Organization [facility] Address [address] [place] [address] Care Team Providers Name Role Phone Md MINA Leigh Primary Care Provider Encounter Details Date Type Department Care Team Description 01/23/2011 Lab Visit [facility] Hyperhidrosis; [address] [place], [place] [address] Social History Tobacco Use Types Packs/Day Years Used Date Smoking Tobacco: Never Assessed Sex Assigned at Date Recorded Not on file documented as of this encounter Progress Notes Nicholas Weaver APRN, CNP - 03/07/2011 3:22 PM CST remind patient to schedule her hemoglobin lab. Nicholas Weaver APRN, CNP - 01/25/2011 5:51 PM SOLAR PROJECT COORDINATION SPECIALIST Addended by: NICHOLAS WEAVER on: 01/25/2011 Modules [...] Re sults for this (INCL IRON) PM SOLAR PROJECT COORDINATION SPECIALIST procedure are i n the results section. THYROID STIMULATING Routine 01/23/2011 3:48 Hyperhidrosis Resu lts for this HORMONE PM SOLAR PROJECT COORDINATION SPECIALIST procedure are i n the results section. COMPLETE BLOOD Routine 01/23/2011 3:48 Hyperhidrosis Results f or this COUNT-NO DIFF PM SOLAR PROJECT COORDINATION SPECIALIST procedure are in the results section. FERRITIN Routine 01/23/2011 3:48 Hyperhidrosis Results for this PM SOLAR PROJECT COORDINATION SPECIALIST procedure are i n the results section. VENIPUNCTURE (JEFF) Routine 01/23/2011 3:41 Hyperhidrosis Resu lts for this PM SOLAR PROJECT COORDINATION SPECIALIST procedure are i n the results section. documented in this encounter Results THYROID STIMULATING HORMONE (01/23/2011 3:48 PM SOLAR PROJECT COORDINATION SPECIALIST) athologist Signature Thyroid 0.98 0.20 - HP CONVERSION Stimulating 4.50 mIU/L Hormone Specimen Anatomical Collection Method Collection Time Receive d Time (Source) Location / / Volume Laterality 01/23/2011 3:48 PM 1 7:58 SOLAR PROJECT COORDINATION SPECIALIST PM SOLAR PROJECT COORDINATION SPECIALIST Nicholas Weaver APRN, CNP LAB_1 Performing Organization Address City/State/ZIP Code Phon e Number HP CONVERSION (ABNORMAL) IRON BINDING CAPACITY (INCL IRON) (01/23/2011 3:48 PM SOLAR PROJECT COORDINATION SPECIALIST) [facility] gist Method Time Signature Iron, [...] Volume Laterality 01/23/2011 3:48 PM 1 7:58 SOLAR PROJECT COORDINATION SPECIALIST PM SOLAR PROJECT COORDINATION SPECIALIST Nicholas Weaver APRN, CNP LAB_1 Performing Organization Address City/State/ZIP Code Phon e Number HP CONVERSION (ABNORMAL) Ferritin (01/23/2011 3:48 PM SOLAR PROJECT COORDINATION SPECIALIST) athologist Signature Ferritin Serum <1 (L) 10 - 291 HP CONVERSION ng/mL Specimen Anatomical Collection Method Collection Time Receive d Time (Source) Location / / Volume Laterality 01/23/2011 3:48 PM 1 7:58 SOLAR PROJECT COORDINATION SPECIALIST PM SOLAR PROJECT COORDINATION SPECIALIST Nicholas Weaver APRN, CNP LAB_1 Performing Organization Address [facility] Phon e Number HP CONVERSION (ABNORMAL) Hemogram/Plts (01/23/2011 3:48 PM SOLAR PROJECT COORDINATION SPECIALIST) [facility] gist Method Time Signature White [...] Volume Laterality 01/23/2011 3:48 PM 1 3:48 SOLAR PROJECT COORDINATION SPECIALIST PM SOLAR PROJECT COORDINATION SPECIALIST Narrative HP CONVERSION - 01/23/2011 4:03 PM SOLAR PROJECT COORDINATION SPECIALIST Performed at [facility], [address] [place] [address] Nicholas Weaver APRN, CNP LAB_1 Performing Organization Address [facility] Phon e Number HP CONVERSION VENIPUNCTURE (JEFF) (01/23/2011 3:41 PM SOLAR PROJECT COORDINATION SPECIALIST) athologist Signature Venipuncture Done HP CONVERSION Specimen (Source) Anatomical Collection Method Collection Time Re ceived Time Location / / Volume Laterality 01/23/2011 3:41 PM SOLAR PROJECT COORDINATION SPECIALIST Narrative HP CONVERSION - 01/23/2011 3:41 PM SOLAR PROJECT COORDINATION SPECIALIST Performed at [facility], [address] [place] [address] Nicholas Weaver APRN, CNP LAB_1 Performing Organization Address [facility] Phon e Number HP CONVERSION documented in this encounter Visit Diagnoses Diagnosis Hyperhidrosis Primary focal hyperhidrosis Anemia Anemia, unspecified documented in this encounter Care Teams Director Biomedical Engineering Relationship Specialty Start Date End Date Md Leigh MD PCP - General 05/26/10 05/11/13 [place] [address] documented as of this encounter
--- OUTSIDE RECORDS SUMMARY | 2021-10-12 14:08 | XMS_ITS | Encounter Summary ---
:1985 Author Organization [facility] Address [address] [place] [address] Care Team Providers Name Role Phone Denisse Sue DO Primary Care Provider Encounter Details Date Type Department Care Team Description 05/12/2013 Lab Visit [facility] [address] [facility] [place] [address] Social History Tobacco Use Types [...] - 05/12/2013 8:23 AM CDT Performed at [facility], [address] [place] [address] Denisse Sue DO LAB_1 Performing Organization Address City/State/ZIP Code Phon e Number HP CONVERSION documented in this encounter Visit Diagnoses Diagnosis Anemia Anemia, unspecified documented in this encounter Care Teams Electrical Lineworker Relationship Specialty Start Date End Date Denisse Sue DO PCP - General 05/12/13 2 [address] [place] [address] documented as of this encounter
--- OUTSIDE RECORDS SUMMARY | 2021-10-12 14:08 | XMS_ITS | Encounter Summary ---
:1985 Author Organization [facility] Address [address] [place] [address] Care Team Providers Name Role Phone Md MINA Leigh Primary Care Provider Encounter Details Date Type Department Care Team Description 06/21/2010 PN Conversion Only CONVERSION CONVERSION Jovany Melendez MD [address] [place], [place] [id number] (Wo rk) Social History Tobacco Use Types Packs/Day Years Used Date Smoking Tobacco: Never Assessed Sex Assigned at Date Recorded Not on file documented as of this encounter Plan of Treatment Not on filedocumented as of this encounter Visit Diagnoses Not on filedocumented in this encounter Care Teams Crisis Mental Health Therapist Relationship Specialty Start Date End Date Md Leigh MD PCP - General 05/26/10 05/11/13 [place], [place] [id number] documented as of this encounter
--- OUTSIDE RECORDS SUMMARY | 2021-10-12 14:08 | XMS_ITS | Encounter Summary ---
:1985 Author Organization [facility] Address [address] [place] [address] Care Team Providers Name Role Phone Md MINA Leigh Primary Care Provider Reason for Visit Reason Comments INJURY, KNEE Encounter Details Date Type Department Care Team Description 10/31/2011 Office Visit [facility] MD Elliott patella (Primary Dx) [address] [place] [address] [place], [place] [phone] (Wo rk) Social History Tobacco Use Types Packs/Day Years Used Date Smoking Tobacco: Never Assessed Sex Assigned at Date Recorded Not on file documented as of this encounter Progress Notes Angelica Thomas MD - 10/31/2011 4:48 PM CDT Progress Notes signed by Angelica Thomas MD at 11/06/11 [id number] Author: Angelica Thomas MD Service: (none) Author Type: Physician Filed: 11/06/11 1625 Note Time: 10/31/11 1648 Status: Signed Congressional Aide: Angelica Thomas MD (Physician) NAME: ODESSA CHE VISIT: [id number] DICTATING CLINICIAN: ANGELICA THOMAS MD JOB: [id number] Med JOB: [id number] LOC: 3711 CLINIC PROGRESS NOTE DATE OF [...] the bike and recently on the elliptical diabetes trainer with no symptoms. OBJECTIVE: There is [...] Primary documented in this encounter Care Teams Associate Professor Of Media Arts Relationship Specialty Start Date End Date Md Lu, MD PCP - General 05/26/10 05/11/13 [place] [address] documented as of this encounter
--- OUTSIDE RECORDS SUMMARY | 2021-10-12 14:08 | XMS_ITS | Encounter Summary ---
:1985 Author Organization [facility] Address [address] [place] [address] Care Team Providers Name Role Phone Md MINA Leigh Primary Care Provider Encounter Details Date Type Department Care Team Description 06/20/2010 Office Visit [facility] [address] Nanette Kay APRN, CNP Obstetrics/Gynecolog y [address] [facility] 5th Floor [facility] [place] [address] [phone] Social History Tobacco Use Types Packs/Day Years [...] on filedocumented in this encounter Care Teams It Business Process Architect Relationship Specialty Start Date End Date Md Leigh MD PCP - General 05/26/10 05/11/13 [place] [address] documented as of this encounter
--- OUTSIDE RECORDS SUMMARY | 2021-10-12 14:08 | XMS_ITS | Encounter Summary ---
:1985 Author Organization [facility] Address [address] [place] [address] Care Team Providers Name Role Phone Md MINA Leigh Primary Care Provider Encounter Details Date Type Department Care Team Description 07/30/2012 Lab Visit [facility] [address] Screening for iron deficiency anemia; Laboratory Screening for lipoid disorde rs; [address] Special screening examinatio n for other specified viral diseases; [place] [address] Urinary urgency [phone] Social History Tobacco Use Types Packs/Day Years [...] MICRO/CULTURE IF POS (07/30/2012 12:11 PM CDT) [facility] Time Signature Urine Type Urine:clean HP [...] U Specific 1.010 1.005 - HP CONVERSION [place] 1.030 Urobilinogen Negative Negative HP CONVERSION Urine Eu/dL Specimen Anatomical Collection Method Collection Time Receive d Time (Source) Location / / Volume Laterality Urine: 07/30/2012 12:11 07/30/2012 PM CDT 12:11 PM CDT Narrative HP CONVERSION - 07/30/2012 12:31 PM CDT Performed at [facility], [address] [place] [address] Nanette Kay APRN, CNP LAB_1 Performing Organization Address City/[facility] Code Phon e Number HP CONVERSION Hepatitis C Antibody, with Reflex (07/30/2012 12:11 PM CDT) [facility] Quarterly Method Time Signature Hepatitis C Non-React Non-Reacti HP CONVERSION Antibody ve Specimen Anatomical Collection Method Collection Time Receive d Time (Source) Location / / Volume Laterality 07/30/2012 12:11 07/30/2012 1:32 PM CDT PM CDT Nanette Kay APRN, CNP LAB_1 Performing Organization Address [facility] Phon e Number HP CONVERSION Hep B Surface Antigen, No Reflex (07/30/2012 12:11 PM CDT) Analysis Performed At Patho logist Time Signature Hep B Surf Ag Negative Negative HP CONVERSION Specimen Anatomical Collection Method Collection Time Receive d Time (Source) Location / / Volume Laterality 07/30/2012 12:11 07/30/2012 1:32 PM CDT PM CDT Nanette Kay APRN, CNP LAB_1 Performing Organization Address City/[facility]/ZIP Code Phon e Number HP CONVERSION Treponema Screen (07/30/2012 12:11 PM CDT) [facility] gist Method Time Signature Treponema Non Reactive Non Reactive HP CONVERSION Screen Specimen Anatomical Collection Method Collection Time Receive d Time (Source) Location / / Volume Laterality 07/30/2012 12:11 07/30/2012 1:33 PM CDT PM CDT Nanette Kay APRN, CNP LAB_1 Performing Organization Address [facility] Code Phon e Number HP CONVERSION HIV ANTIBODY (07/30/2012 12:11 PM CDT) athologist Signature HIV 1/HIV 2 Non-React Non-Reacti HP CONVERSION ve Specimen Anatomical Collection Method Collection Time Receive d Time (Source) Location / / Volume Laterality 07/30/2012 12:11 07/30/2012 1:32 PM CDT PM CDT Nanette Kay APRN, CNP LAB_1 Performing Organization Address [facility] Code Phon e [...] - 07/30/2012 12:43 PM CDT Performed at [facility], [address] [place] [address] Nanette Kay APRN, CNP LAB_1 Performing Organization Address City/[facility]/ZIP Code Phon e Number HP CONVERSION (ABNORMAL) Ferritin (07/30/2012 12:11 PM CDT) athologist Signature Ferritin Serum 4 (L) 10 - 291 HP CONVERSION ng/mL Specimen Anatomical Collection Method Collection Time Receive d Time (Source) Location / / Volume Laterality 07/30/2012 12:11 07/30/2012 1:32 PM CDT PM CDT Nanette Kay APRN, CNP LAB_1 Performing Organization Address [facility] Phon e Number HP CONVERSION (ABNORMAL) Hemogram/Plts (07/30/2012 12:11 PM CDT) [facility] gist Method Time Signature White Blood [...] - 07/30/2012 12:22 PM CDT Performed at [facility], [address] [place] [address] Nanette Kay APRN, CNP LAB_1 Performing Organization Address [facility] Phon e Number HP CONVERSION documented in this encounter Visit Diagnoses Diagnosis Screening for iron deficiency anemia Screening for lipoid disorders Special screening examination for other specified viral diseases Urinary urgency Urgency of urination documented in this encounter Care Teams Support Worker Relationship Specialty Start Date End Date Md Leigh MD PCP - General 05/26/10 05/11/13 [place] [address] documented as of this encounter
--- OUTSIDE RECORDS SUMMARY | 2021-10-12 14:08 | XMS_ITS | Encounter Summary ---
:1985 Author Organization [facility] Address [address] [place] [address] Care Team Providers Name Role Phone Md MINA Leigh Primary Care Provider Encounter Details Date Type Department Care Team Description 04/01/2013 Imaging CTMRI Radiology MRI Left ankle pain (Primary Dx) [address] [facility] [place] [address] Social History Tobacco Use Types Packs/Day Years Used Date Smoking Tobacco: Never Assessed Sex Assigned at Date Recorded Not on file documented as of this encounter Plan of Treatment Not on filedocumented as of this encounter Procedures Procedure Name Priority Date/Time Associated Diagnosis Comme nts MR ANKLE LT W/WO IV Routine 04/01/2013 8:02 PM Left ankle pain Results for this CONT DISTRIBUTION SYSTEMS SUPERINTENDENT procedure are i n the results section. documented in this encounter Results MR Ankle Lt W/WO IV Cont (04/01/2013 8:02 PM DISTRIBUTION SYSTEMS SUPERINTENDENT) Anatomical Region Laterality Modality Lower Extremity, Ankle, Foot, Leg, Skeletal, Foot & Ankle Le ft Other Specimen (Source) Anatomical Location Collection Method / Collectio n Time Received Time / Laterality Volume Impressions 04/02/2013 8:08 AM DISTRIBUTION SYSTEMS SUPERINTENDENT IMPRESSION: 1. Cystic 1.9 cm lesion superficial [...] is intact. ?? Narrative 04/02/2013 8:08 AM DISTRIBUTION SYSTEMS SUPERINTENDENT TECHNIQUE: Multiplanar and multisequenti al images of [...] foot documented in this encounter Care Teams Security Flex Officer Relationship Specialty Start Date End Date Md Lu, PCP - General 05/26/10 05/11/13 [place] [address] documented as of this encounter
--- OUTSIDE RECORDS SUMMARY | 2021-10-12 14:08 | XMS_ITS | Encounter Summary ---
:1985 Author Organization [facility] Address [address] [place] [address] Care Team Providers Name Role Phone Md MINA Leigh Primary Care Provider Reason for Visit Reason Comments Follow-up Encounter Details Date Type Department Care Team Description 09/10/2011 Office Visit [facility] Angelica Quiroz of [place] MD Elliott patella (Primary Dx) [address] [place] [address] [place], [place] [phone] (Wo rk) Social History Tobacco Use Types Packs/Day Years Used Date Smoking Tobacco: Never Assessed Sex Assigned at Date Recorded Not on file documented as of this encounter Progress Notes Angelica Thomas MD - 09/10/2011 3:42 PM CDT Progress Notes signed by Angelica Thomas MD at 09/12/11 9009 Author: Angelica Thomas MD Service: (none) Author Type: Physician Filed: 09/12/111718 Note Time: 09/10/11 1542 Status: Signed Textile Conservator: Angelica Thomas MD (Physician) NAME: ODESSA TELLEZ VISIT: [id number] DICTATING CLINICIAN: ANGELICA THOMAS MD JOB: [id number] Med JOB: [id number] LOC: 3711 CLINIC PROGRESS NOTE DATE OF [...] Primary documented in this encounter Care Teams Mica Plate Layer Relationship Specialty Start Date End Date Md Leigh MD PCP - General 05/26/10 05/11/13 [place] [address] documented as of this encounter
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
--- OUTSIDE RECORDS SUMMARY | 2021-10-12 14:08 | XMS_ITS | Encounter Summary ---
:1985 Author Organization [facility] Address [address] [place] [address] Care Team Providers Name Role Phone Md MINA Leigh Primary Care Provider Reason for Visit Reason Comments Annual Exam Encounter Details Date Type Department Care Team Description 07/30/2012 Office Visit [facility] [address] Kay, Routine general medical examination at a health care facility (Primary Dx); Obstetrics/Gynecolog y MARKETING OPERATIONS COORDINATOR, LIFELINE REPRESENTATIVES Screening for malignant neoplasm of the cervix; [address] [place] [address] Special screening examination for unspec ified chlamydial disease; [address] [facility] 5th Floor Screening for iron deficiency anemia; [place], [place] Sc reening for lipoid disorders; [phone] Need for Tdap vaccination; [phone] (Wo rk) Special screening examination for other [...] AM CDT Thank you for enrolling in [employer]Better. Please follow the instructions below to securely access your online medical record. [employer]Better allows you to send messages to your doctor, view your test results, renewyour prescriptions, schedule appointments, and more. How Do I Sign Up? 1. In your Internet browser, go to: [email or web address] 2. Click on the Sign Up Now link in the Sign In box. You will see the New Member Sign Up page. 3. Enter your SoundBetter Access Code exactly as it appears below. You will not need to use this code after you???ve completed the sign-up process. If you do not sign up before the expiration date, you must request a new code. [employer]Better Access Code: [email or web address] Expires: 08/29/2012 11:05 AM 4. Enter your Social Security Number (xxx-xx-xxxx) and Date of (mm/dd/yyyy) as indicated and click Submit. You will be taken to the next sign- up page. 5. Create a SoundBetter ID. This will be your SoundBetter login ID and cannot be changed, so think of one that is secure and easy to remember. 6. Create a SoundBetter password. You can change your password at any time. 7. Enter your Password Reset Question and Answer. This can be used at a later time if you forget your password. 8. Enter your e-mail address. You will receive e-mail notification when new information is availablein SoundBetter. 9. Click Sign Up. You can now view your medical record. Additional Information If you have questions, you can call [phone] to talk to our [employer]Better staff. Remember, SoundBetter is NOT to be used for urgent [...] they are available. Please contact me at [phone] if questions. documented in this encounter Progress [...] Past Surgical History Procedure Laterality Date ??? Onaway tooth extraction Family History: Family History Problem [...] Order Specific Question: Ordering Provider? (, Miladys, YARN INSPECTOR, or PA Only) Answer: NICHOLAS KAY [[id number]] ??? Tdap (BOOSTRIX) ??? Pap Smear Screening [PAPL] Order Specific Question: Ordering Provider? (Miladys Almonte, YARN INSPECTOR, or PA Only) Answer: NICHOLAS KAY [[id number]] Order Specific Question: Is the required paper requisition completed? Answer: Yes ??? Complete Blood Count - No Diff [ABC] Standing Status: Future Number of Occurrences: 1 Standing Expiration Date: 07/30/2013 Order Specific Question: Ordering Provider? (Miladys Almonte, YARN INSPECTOR, or PA Only) Answer: NICHOLAS KAY [[id number]] ??? Ferritin [ISACC] Standing Status: Future Number of Occurrences: 1 Standing Expiration Date: 07/30/2013 Order Specific Question: Ordering Provider? (Miladys Almonte, YARN INSPECTOR, or PA Only) Answer: NICHOLAS KAY [[id number]] ? ? Cholesterol, Total & HDL [CHS] Standing Status: Future Number of Occurrences: 1 Standing Expiration Date: 07/30/2013 Order Specific Question: Ordering Provider? (Miladys Almonte, YARN INSPECTOR, or PA Only) Answer: NICHOLAS KAY [[id number]] ??? HIV Antibody [HIV] Standing Status: Future Number of Occurrences: 1 Standing Expiration Date: 07/30/2013 Order Specific Question: Ordering Provider? (Miladys Almonte, YARN INSPECTOR, or PA Only) Answer: NICHOLAS KAY [[id number]] ??? Treponemal Antibody Standing Status: Future Number of Occurrences: 1 Standing Expiration Date: 07/30/2013 Order Specific Question: Ordering Provider? (Miladys Almonte, YARN INSPECTOR, or PA Only) Answer: NICHOLAS KAY [[id number]] ??? Hepatitis Bs Antigen [HBAG] Standing Status: Future Number of Occurrences: 1 Standing Expiration Date: 07/30/2013 Order Specific Question: Ordering Provider? (, Res, YARN INSPECTOR, or PA Only) Answer: NICHOLAS KAY [[id number]] ??? Hepatitis C Antibody [HCAB] Standing Status: Future Number of Occurrences: 1 Standing Expiration Date: 07/30/2013 Order Specific Question: Ordering Provider? (, Res, YARN INSPECTOR, or PA Only) Answer: NICHOLAS KAY [[id number]] ??? Urinalysis Routine Hold Culture (URH) Standing Status: Future Number of Occurrences: 1 Standing Expiration Date: 07/30/2013 Order Specific Question: Ordering Provider? (, Res, YARN INSPECTOR, or PA Only) Answer: NICHOLAS KAY [[id number]] Order Specific Question: Urine Collection Type Answer: Urine:clean catch ??? Pap Smear Patient Instructions Thank you for enrolling in [employer]Better. Please follow the instructions below to securely access your online medical record. SoundBetter allows you to send messages to your doctor, view your test results, renewyour prescriptions, schedule appointments, and more. How Do I Sign Up? 1. In your Internet browser, go to: [email or web address] 2. Click on the Sign Up Now link in the Sign In box. You will see the New Member Sign Up page. 3. Enter your SoundBetter Access Code exactly as it appears below. You will not need to use this code after you???ve completed the sign-up process. If you do not sign up before the expiration date, you must request a new code. SoundBetter Access Code: [email or web address] Expires: 08/29/2012 11:05 AM 4. Enter your Social Security Number (xxx-xx-xxxx) and Date of (mm/dd/yyyy) as indicated and click Submit. You will be taken to the next sign- up page. 5. Create a SoundBetter ID. This will be your SoundBetter login ID and cannot be changed, so think of one that is secure and easy to remember. 6. Create a SoundBetter password. You can change your password at any time. 7. Enter your Password Reset Question and Answer. This can be used at a later time if you forget your password. 8. Enter your e-mail address. You will receive e-mail notification when new information is availablein SoundBetter. 9. Click Sign Up. You can now view your medical record. Additional Information If you have questions, you can call [phone] to talk to our SoundBetter staff. Remember, SoundBetter is NOT to be used for urgent [...] they are available. Please contact me at [phone] if questions. Current Control:N/A documented in this [...] Component Value Ref [facility] Range Method Time Signature Source [...] Kay APRN, CNP LAB_1 Performing Organization Address [facility] Phon e Number HP CONVERSION Pap Smear (07/30/2012 12:02 PM CDT) Specimen (Source) Anatomical Collection Method Collection Time Re ceived Time Location / / Volume Laterality 07/30/2012 12:02 PM CDT Narrative HP CONVERSION - 08/04/2012 3:57 PM CDT FINAL GYNECOLOGICAL CYTOLOGY REPORT Pathology #: [id number] ?Date Obtained: 07/30/2012 ? Date Received: 07/31/2012 [...] Kay APRN, CNP LAB_1 Performing Organization Address [facility] Phon e Number HP CONVERSION Pap Smear Screening (07/30/2012 12:02 PM CDT) P athologist Signature PAP Routine Collected HP CONVERSION Specimen Anatomical Collection Method Collection Time Receive d Time (Source) Location / / Volume Laterality 07/30/2012 12:02 07/31/2012 5:33 PM CDT AM CDT Nicholas Kay APRN, CNP LAB_1 Performing Organization Address [facility] Phon e Number HP CONVERSION documented in this encounter Visit Diagnoses Diagnosis Routine general medical examination at a health care facility - Primary Screening for malignant neoplasm of the cervix Special screening examination for unspec ified chlamydial disease Screening for iron deficiency anemia Screening for lipoid disorders Need for Tdap vaccination Need for prophylactic vaccination with c ombined aoyscsilcu-dyotinb-nzolbztme (DTP) vaccine Special screening examination for other specified viral diseases Bloating Flatulence, eructation, and gas pain Urinary urgency Urgency of urination documented in this encounter Care Teams Display Carver Relationship Specialty Start Date End Date Md Leigh MD PCP - General 05/26/10 05/11/13 [place] [address] documented as of this encounter
--- OUTSIDE RECORDS SUMMARY | 2021-10-12 14:08 | XMS_ITS | Encounter Summary ---
:1985 Author Organization [facility] Address [address] [place] [address] Care Team Providers Name Role Phone Md MINA Leigh Primary Care Provider Encounter Details Date Type Department Care Team Description 01/23/2011 Notes/Orders [facility] Nanette Bravo, [address] Robb APRN, [place] [address] [place] [address] [address] [place] [phone] (Wo rk) Social History Tobacco Use Types Packs/Day Years Used Date Smoking Tobacco: Never Assessed Sex Assigned at Date Recorded Not on file documented as of this encounter Plan of Treatment Not on filedocumented as of this encounter Visit Diagnoses Not on filedocumented in this encounter Care Teams Education Finance Processor Relationship Specialty Start Date End Date Md Leigh MD PCP - General 05/26/10 05/11/13 [place], [place] [address] documented as of this encounter
--- OUTSIDE RECORDS SUMMARY | 2021-10-12 14:08 | XMS_ITS | Encounter Summary ---
:1985 Author Organization [facility] Address [address] [place] [address] Care Team Providers Name Role Phone Md MINA Leigh Primary Care Provider Reason for Visit Reason Comments RESULTS, TEST Encounter Details Date Type Department Care Team Description 04/07/2013 Office Visit [facility] [address] Loc alized superficial Podiatric MedSurg M, DPM swelling, mass, or [address] [place] [address] p (Primary Dx) [place] [address] [phone] (Wo rk) Social History Tobacco Use Types [...] 04/14/1358 Note Time: 04/07/13 1032 Status: Signed Transformer Builder: Elizabeth Hurtado DPM (Physician) NAME: ODESSA CHE MR#: [id number] CSN: [id number] AUTHENTICATING CLINICIAN: Elizabeth Hurtado DPM CONFIRM #: [id number] LOC: 439 CLINIC PROGRESS NOTE DATE OF VISIT: 04/07/2013 : 1985 SUBJECTIVE: The patient is a 27-year-old female seen today to discuss MRI results of her left foot. She has a palpable soft tissue mass that is somewhat bothersome when she runs where her shoe rubs. It is not painful for her currently. MEDICATIONS: Reviewed and updated in [employer]. ALLERGIES: No known drug allergies. REVIEW OF [...] schedule procedure at her convenience with the material scheduler. She will need a preoperative history and physical 1 month prior to procedure. SMS:MEDQ C: CONFIRM #: [id number] NSTITCH HEMMER documented in this encounter Plan of Treatment Not on filedocumented as of this encounter Visit Diagnoses Diagnosis Localized superficial swelling, mass, or lump - Primary documented in this encounter Care Teams Rubber Extrusion Machine Operator Relationship Specialty Start Date End Date Md Lu, PCP - General 05/26/10 05/11/13 [place] [address] documented as of this encounter
--- OUTSIDE RECORDS SUMMARY | 2021-10-12 14:08 | XMS_ITS | Encounter Summary ---
:1985 Author Organization [facility] Address [address] [place] [address] Care Team Providers Name Role Phone Md MINA Leigh Primary Care Provider Reason for Visit Reason Comments Other Encounter Details Date Type Department Care Team Description 06/20/2010 Telephone [facility] [address], Message Other Obstetrics/Gynecolog y [address] [place] [address] Social History Tobacco Use Types Packs/Day Years Used Date Smoking Tobacco: Never Assessed Sex Assigned at Date Recorded Not on file documented as of this encounter Progress Notes Advance, Message - 06/20/2010 8:33 AM CDT Ml on pt's contact number to go to [facility] 1/2 hr prior to appt for UA/UC. Labs faxed. Created on 20Jun2010 8:33am by ELVA DU documented in this encounter Plan of Treatment Not on filedocumented as of this encounter Visit Diagnoses Not on filedocumented in this encounter Care Teams Rn Occupational Relationship Specialty Start Date End Date Md Leigh MD PCP - General 05/26/10 05/11/13 [place] [address] documented as of this encounter
--- OUTSIDE RECORDS SUMMARY | 2021-10-12 14:08 | XMS_ITS | Encounter Summary ---
:1985 Author Organization [facility] Address [address] [place] [address] Care Team Providers Name Role Phone Md MINA Leigh Primary Care Provider Reason for Visit Reason Comments MASS Encounter Details Date Type Department Care Team Description 03/31/2013 Initial Consult [facility] [address] Hurtado Left ankle pain (Primary Dx); Podiatric MedSurrossy Gilliam DPM Localized superficial swelling, mass, or lump [address] [facility] [address] [place] [address] [phone] Social History Tobacco Use Types Packs/Day Years Used Date Smoking Tobacco: Never Assessed Sex Assigned at Date Recorded Not on file documented as of this encounter Progress Notes Elizabeth Hurtado DPM - 03/31/2013 1:08 PM CST Progress Notes signed by Elizabeth Hurtado DPM at 04/05/13 1607 Author: Elizabeth Hurtado DPM Service: (none) Author Type: Physician Filed: 04/05/13 1605 Note Time: 03/31/13 1435 Status: Signed Flooring Mechanic: Elizabeth Hurtado DPM (Physician) NAME: ODESSA CHE MR#: [id number] CSN: [id number] AUTHENTICATING CLINICIAN: Elizabeth Hurtado DPM CONFIRM #: [id number] LOC: 439 CLINIC PROGRESS NOTE DATE OF [...] hyperhidrosis. CURRENT MEDICATIONS: Reviewed and updated in [employer]. ALLERGIES: No known drug allergies. FAMILY HISTORY: [...] to discuss results. SMS:MEDQ C: CONFIRM #: [id number] TICISER documented in this encounter Plan of Treatment Not on filedocumented as of this encounter Visit Diagnoses Diagnosis Left ankle pain - Primary Pain in joint, ankle and foot Localized superficial swelling, mass, or lump documented in this encounter Care Teams Border Measurer And Cutter Relationship Specialty Start Date End Date Md Leigh MD PCP - General 05/26/10 05/11/13 [place] [address] documented as of this encounter
--- OUTSIDE RECORDS SUMMARY | 2021-10-12 14:08 | XMS_ITS | Encounter Summary ---
:1985 Author Organization [facility] Address [address] [place] [address] Care Team Providers Name Role Phone Md MINA Leigh Primary Care Provider Reason for Referral Specialty Diagnoses / Procedures Referred By Contact Refer red To Contact Barbara Gamino AP RN, DIRECTOR OF RETAIL ANALYTICS [address] [place], [place] [address] Referral ID Status Reason Start Date Expiration Date Visits Requ ested Visits Authorized NG SOAKER Reason for Visit Reason Comments Skin Check Encounter Details Date Type Department Care Team Description 01/29/2012 Procedure Visit [facility] [address] Karen Lester APRN , Skin Check Dermatology DIRECTOR OF RETAIL ANALYTICS [facility] [facility] [address] [place], [place] [address] [address] [place], [place] [phone] (Wo rk) Social History Tobacco Use Types Packs/Day Years Used Date Smoking Tobacco: Never Assessed Sex Assigned at Date Recorded Not on file documented as of this encounter Progress Notes Karen Lester APRN, CNP - 01/29/2012 5:19 PM CST Progress Notes signed by JOHN Olmstead at 01/31/12 839 Author: JOHN Olmstead Service: (none) Author Type: Nurse Practitioner Filed: 01/31/12749 Note Time: 01/29/121718 Status: Signed Laborer Salvage: Karen Trevon V., ANP (Nurse Practitioner) NAME: ODESSA CHE MR#: [id number] CSN: [id number] AUTHENTICATING CLINICIAN: JOHN Burgos CONFIRM #: [id number] LOC: 427 CLINIC PROGRESS NOTE DATE OF [...] has further concerns. NVR:MEDQ C: CONFIRM #: [id number] NG SOAKER Karen Lester APRN, CNP - 01/29/2012 5:16 [...] glands documented in this encounter Care Teams Vulcanizer Operator Relationship Specialty Start Date End Date Md Leigh MD PCP - General 05/26/10 05/11/13 [place] [address] documented as of this encounter
--- OUTSIDE RECORDS SUMMARY | 2021-10-12 14:09 | XMS_ITS | Encounter Summary ---
:1985 Author Organization [facility] Address [address] [place] [address] Care Team Providers Name Role Phone Md MINA Leigh Primary Care Provider Encounter Details Date Type Department Care Team Description 03/31/2010 PN Conversion Only YAZIDI CONVERSION Social History Tobacco Use Types Packs/Day Years Used Date Smoking Tobacco: Never Assessed Sex Assigned at Date Recorded Not on file documented as of this encounter Plan of Treatment Not on filedocumented as of this encounter Visit Diagnoses Not on filedocumented in this encounter Care Teams Hat Mender Relationship Specialty Start Date End Date Md Leigh MD PCP - General 05/26/10 05/11/13 [place] [address] documented as of this encounter
--- OUTSIDE RECORDS SUMMARY | 2021-10-12 14:09 | XMS_ITS | Encounter Summary ---
:1985 Author Organization [facility] Address [address] [place] [address] Care Team Providers Name Role Phone Md MINA Leigh Primary Care Provider Reason for Visit Reason Comments Other Encounter Details Date Type Department Care Team Description 02/16/2009 Telephone [facility] [address] Li[address] Kay , FLORIST, GANG PLANK WORKMAN Other Obstetrics/Gynecolog y [address] [place] [address] [place] [address] [place], [place] [address] (Wo rk) Social History Tobacco Use Types [...] 06/15/101938 Note Time: 02/16/09 0848 Status: Signed Undraped Artist Model: Yulisa Carlson RN (Registered Nurse) MESSAGE TO [...] else is called to pharmacy, please use [facility] [address]. Pt can be reached at [phone], msg ok On 21Feb2009 5:18pm LIANG KAY [...] wrote: No response from patient, call closed. NING CLERK documented in this encounter Plan of Treatment Not on filedocumented as of this encounter Visit Diagnoses Not on filedocumented in this encounter Care Teams Enamel Finisher Relationship Specialty Start Date End Date Md Leigh MD PCP - General 05/26/10 05/11/13 [place] [address] documented as of this encounter
--- OUTSIDE RECORDS SUMMARY | 2021-10-12 14:09 | XMS_ITS | Encounter Summary ---
:1985 Author Organization [facility] Address [address] [place] [address] Care Team Providers Name Role Phone Md MINA Leigh Primary Care Provider Encounter Details Date Type Department Care Team Description 07/12/2008 Office Visit [facility] [address], Care Jovany Guzman MD [address] [facility] [address] [place] [address] [place] [address] [phone] (Wo rk) Social History Tobacco Use Types [...] 1319 Note Time: 07/12/08 0001 Status: Signed Press Tender Star Signal: Megan Britton MD (Physician) NAME: ODESSA CHE MR#: [id number] ACCT: [id number] VISIT: [id number] DICTATING CLINICIAN: Megan Britton MD CONFIRM #: [id number] LOC: 420 CLINIC PROGRESS NOTE DATE OF [...] try some icing and ibuprofen as well. [facility]:[id number] C: 07/13/08 10:58 CONFIRM #: [id number] documented in this encounter Plan of Treatment [...] recommended if there are persistent s ymptoms. [id number]/ddb Dictating JUVENAL HERNANDEZ RADIOLOGIST Procedure Note Juvenal [...] recommended if there are persistent s ymptoms. 907474/ddb Dictating JUVENAL HERNANDEZ RADIOLOGIST Jovany Britton MD RAD GD documented in this encounter Visit Diagnoses Not on filedocumented in this encounter Care Teams Aerial Gunner Superintendent Relationship Specialty Start Date End Date Md Leigh MD PCP - General 05/26/10 05/11/13 [place] [address] documented as of this encounter
--- OUTSIDE RECORDS SUMMARY | 2021-10-12 14:09 | XMS_ITS | Encounter Summary ---
:1985 Author Organization [facility] Address [address] [place] [address] Care Team Providers Name Role Phone Md MINA Leigh Primary Care Provider Encounter Details Date Type Department Care Team Description 12/25/2002 PN Conversion Only [employer] ARCHIT[facility] [address] [place] [address] Social History Tobacco Use Types Packs/Day Years Used Date Smoking Tobacco: Never Assessed Sex Assigned at Date Recorded Not on file documented as of this encounter Plan of Treatment Not on filedocumented as of this encounter Visit Diagnoses Not on filedocumented in this encounter Care Teams Liquefaction And Regasification Helper Relationship Specialty Start Date End Date Md Leigh MD PCP - General 05/26/10 05/11/13 [place], [place] [address] documented as of this encounter
--- OUTSIDE RECORDS SUMMARY | 2021-10-12 14:09 | XMS_ITS | Encounter Summary ---
:1985 Author Organization [facility] Address [address] [place] [address] Care Team Providers Name Role Phone Unavailable Primary Care Provider Unavailable Reason for Visit Reason Comments INJURY, FINGERS Encounter Details Date Type Department Care Team Description 09/01/1997 Telephone Careline Aisha Aguilar, RN INJURY, FINGERS [address] [place], [place] [address] [phone] [place] [address] Social History Tobacco Use Types Packs/Day Years Used Date Smoking Tobacco: Never Assessed Sex Assigned at Date Recorded Not on file documented as of this encounter Nursing Notes 09/01/1997 11:59 PM CDT >> CALL RECEIVED. Contact: [id number] [phone] >> AISHA AGUILAR 09/01/1997 10:07 pm Dad [...] to go to Er will go to [facility]. documented in this encounter Plan of Treatment Not on filedocumented as of this encounter Visit Diagnoses Not on filedocumented in this encounter
--- OUTSIDE RECORDS SUMMARY | 2021-10-12 14:09 | XMS_ITS | Encounter Summary ---
:1985 [facility] Address [address] [place] [address] Care Team Providers Name Role Phone Md MINA Leigh Primary Care Provider Encounter Details Date Type Department Care Team Description 02/24/1989 PN Conversion Only RN ICU [address] John Hector I [address] [place] [address] [address] [place] [address] (Wo rk) Social History Tobacco Use Types Packs/Day Years Used Date Smoking Tobacco: Never Assessed Sex Assigned at Date Recorded Not on file documented as of this encounter Plan of Treatment Not on filedocumented as of this encounter Visit Diagnoses Not on filedocumented in this encounter Care Teams Pressfitter Relationship Specialty Start Date End Date Md Leigh MD PCP - General 05/26/10 05/11/13 [place] [address] documented as of this encounter
--- OUTSIDE RECORDS SUMMARY | 2021-10-12 14:09 | XMS_ITS | Encounter Summary ---
:1985 Author [facility] Address [address] [place] [address] Care Team Providers Name Role Phone Md MINA Leigh Primary Care Provider Encounter Details Date Type Department Care Team Description 01/13/2009 PN Conversion Only COIN COUNTER AND WRAPPER [address] Nanette Rodríguez APRN, 3850 [facility] [address] [facility] 5th Floor [address] [place], [place] [address] (Wo rk) Social History Tobacco Use Types Packs/Day Years Used Date Smoking Tobacco: Never Assessed Sex Assigned at Date Recorded Not on file documented as of this encounter Plan of Treatment Not on filedocumented as of this encounter Procedures Procedure Name Priority Date/Time Associated Comments Diagnosis SEXUALLY TRANSMITTED Routine 01/13/2009 3:46 PM R esults for this DISEASE PROBE FIRESTOPPER TECHNICIAN procedure are in the results section. ANATOMICAL PATH Routine 01/13/2009 8:23 AM Result s for this LIQUID BASED FIRESTOPPER TECHNICIAN procedure are i n the results section. documented in this encounter Results Sexually Transmitted Disease Probe (01/13/2009 3:46 PM FIRESTOPPER TECHNICIAN) [facility] gist Method Time Signature Sexually SEE TEXT HP CONVERSION Transmitted Disease Probe Comment: Patient: ODESSA CHE Sexually Trans Disease Probe ?Collected: ??[id number] ??[id number] Source: ENDOCERV ?Processed: ??[id number] ??[id number] Final Report ------ ?[id number] ??[id number] No Chlamydia trachomatis detected by amp lified DNA assay No Neisseria gonorrhoeae detected by amp lified DNA assay The [employer] Amplified DNA assay is suman red by the FDA for non-medicolegal diagnostic testing in the adult population. Specimen (Source) Anatomical Collection Method Collection Time Re ceived Time Location / / Volume Laterality 01/13/2009 3:46 PM FIRESTOPPER TECHNICIAN Nanette Kay APRN, COCOA MILLING MACHINE OPERATOR LAB_1 Performing Organization Address City/State/ZIP Code Phon e Number HP CONVERSION Pap Smear (01/13/2009 8:23 AM FIRESTOPPER TECHNICIAN) [facility] gist Method Time Signature PAP Smear SEE TEXT No normal HP CONVERSION Liquid Based range Comment: Patient: ODESSA CHE ? CERVICAL CYTOLOGY REPORT Pathology # ??[id number] ?Date Obtained: ? Date Received: CYTOLOGIC IMPRESSION: Negative for intraepithelial lesion or m alignancy. Verified 01/18/09 by: ??MB ? (electronic signature) ? ALYSA TIONAL DATA LMP: CLINICAL HIST LIQUID BASED PAP CERVICAL SPECIMEN ADEQUACY: ?? Satisfactory. ENDOCERVICAL CELLS: ??Present. Specimen (Source) Anatomical Collection Method Collection Time Re ceived Time Location / / Volume Laterality 01/13/2009 8:23 AM FIRESTOPPER TECHNICIAN Nanette Kay MATERIAL HANDLER, COCOA MILLING MACHINE OPERATOR LAB_1 Performing Organization Address City/State/ZIP Code Phon e Number HP CONVERSION documented in this encounter Visit Diagnoses Not on filedocumented in this encounter Care Teams Customs Brokerage Agent Relationship Specialty Start Date End Date Md Lu, PCP - General 05/26/10 05/11/13 [place], [place] [address] documented as of this encounter
--- OUTSIDE RECORDS SUMMARY | 2021-10-12 14:09 | XMS_ITS | Encounter Summary ---
:1985 Author Organization [facility] Address [address] [place] [address] Care Team Providers Name Role Phone Md MINA Leigh Primary Care Provider Encounter Details Date Type Department Care Team Description 01/13/2009 Office Visit [facility] 3800 Nanette Kay APRN, CNP Obstetrics/Gynecolog y [address] PSYCHIATRIC 5th [place] [address] [phone] Social History Tobacco Use Types Packs/Day Years Used Date Smoking Tobacco: Never Assessed Sex Assigned at Date Recorded Not on file documented as of this encounter Last Filed Vital Signs Vital Sign Reading Time Taken Comments Blood Pressure 122/65 01/13/2009 1:01 PM MARINE DRAFTER Pulse 63 01/13/2009 1:01 PM MARINE DRAFTER Temperature - - Respiratory Rate - - Oxygen Saturation - - Inhaled Oxygen Concentration - - Weight 52 kg (114 lb 9.5 oz) 01/13/2009 1:01 PM MARINE DRAFTER C: 52.0kg Height 162.6 cm (5' 4) 01/13/2009 1:01 PM MARINE DRAFTER C: 162.6 cm Body Mass Index 19.67 01/13/2009 1:01 PM MARINE DRAFTER documented in this encounter Progress Notes Nanette Kay APRN, DON - 01/13/2009 12:01 AM CST H&P signed by OMAR Tucker at 01/23/092032 Author: OMAR Tucker Service: (none) Author Type: Nurse Practitioner Filed: 06/16/10 1807 Note Time: 01/13/09 0001 Status: Signed Support Group Manager: OMAR Tucker (Nurse Practitioner) NAME: ODESSA CHE MR#: [id number] ACCT: [id number] VISIT: [id number] DICTATING CLINICIAN: OMAR Tucker CONFIRM #: [id number] LOC: 412 CLINIC PHYSICAL DATE OF VISIT: 01/13/2009 SUBJECTIVE: : 1985. Kimberley is a nulliparous female who presents as new patient to me, as well as to Felipa Dagn for health maintenance exam. Kimberley is currently using condoms for prevention and would really like to start oral contraceptives. 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 She has had 2 sexual partners historically. She has never been screened for gonorrhea or chlamydia. She believes her last Pap smear was about 2 years ago. As far as she knows, that was a normal exam. AUTOBODY TECHNICIAN HISTORY: Onset of menses age 11. Cycles [...] breast exam. OBSTETRICAL HISTORY: Not applicable. PAST AUTOBODY TECHNICIAN HISTORY: Not applicable. NON-AUTOBODY TECHNICIAN SURGERIES: Extraction of wisdom teeth. PERSONAL HEALTH HISTORY: Seasonal allergies. History of menstrual migraines that respond effectively to [id number] Excedrin migraine. She does not have any [...] pending. Will follow up based on results. JAR:[id number] C: 01/13/09 19:07 CONFIRM #: [id number] NE DRAFTER documented in this encounter Plan of Treatment Not on filedocumented as of this encounter Visit Diagnoses Not on filedocumented in this encounter Care Teams Electric Stove Installer Relationship Specialty Start Date End Date Md Lu, PCP - General 05/26/10 05/11/13 [place] [address] documented as of this encounter
== END 2021-10-12 14:02 | disposition home or self-care (01) ==
LOC: US 14:02
PROVIDERS: PCP Nurse Practitioner Family; Visit Provider Obstetrics & Gynecology
DX: O09.899 Supervision of other high risk pregnancies, unspecified trimester (principal)
CPT/HCPCS: 76819

== ENCOUNTER 2021-10-19 13:52 | Outpatient (CLI) | payer BC, SELFPAY ==
--- OUTSIDE RECORDS SUMMARY | 2021-10-19 13:54 | XMS_ITS | Encounter Summary ---
:1985 Author Organization [facility] Address [address] [place] [address] Care Team Providers Name Role Phone Jie Farah DO Primary Care Provider Encounter Details Date Type Department Care Team Description 05/06/2020 Immunization [place] COVMO Encounter for Vaccine Program administration of vaccine [address] (Primary Dx) [place], [place] [address] Social History Tobacco Use Types [...] Primary documented in this encounter Care Teams Fabrication Inspector Relationship Specialty Start Date End Date Jie Farah DO PCP - General Family Practice 04/05/16 [address] [place] [address] documented as of this encounter
--- OUTSIDE RECORDS SUMMARY | 2021-10-19 13:54 | XMS_ITS | Encounter Summary ---
:1985 Author [facility] Address [address] [place] [address] Care Team Providers Name Role Phone Jie Mckeon DO Primary Care Provider Reason for Visit Reason Onset Date Comments Refill 06/01/2020 SUMAtriptan (IMITREX ) 100 MG tablet Encounter Details Date Type Department Care Team Description 06/01/2020 Refill [facility] 3850 Jie Mckeon, Re fill (SUMAtriptan Family Medicine DO (IMITREX) 100 MG [address] [place] [address] tab let) [place] [phone] (Wo rk) Social History Tobacco Use Types [...] Villalpando RN 06/02/2020, 9:40 AM Interface, Out PA Semi Prov Query - 06/01/2020 10:42 AM CDT [...] MCKEON) Next scheduled visit: None Powered by [employer], Reference: [id number], 06/01/2020 10:42:02 AM CDT, Pool: [id number] FM REFILL ([id number]) documented in this encounter Plan of Treatment Not on filedocumented as of this encounter Visit Diagnoses Not on filedocumented in this encounter Care Teams Staffing Manager Relationship Specialty Start Date End Date Jie Mckeon, DO PCP - General Family Practice 04/05/16 [address] [place] [address] documented as of this encounter
--- OUTSIDE RECORDS SUMMARY | 2021-10-19 13:54 | XMS_ITS | Clinical Summary ---
:1985 Author Organization [facility] [place] [address] Care Team Providers Name Role Phone Unavailable Primary Care Provider Unavailable Allergies Not on File Medications Not on file Active Problems Not on file Encounters Date Type Specialty Care Team Description 10/09/2021 Telephone Lorie Willams Questions ( Meet/greet appt?) MD Saima from Last 3 Months Social History Tobacco Use Types Packs/Day Years Used Date Never Assessed Sex Assigned at Date Recorded Not on file Plan of Treatment Health Maintenance Due Date Last Done Comments COVID-19 vaccine series (#1) 06/15/1984 Tdap 12/15/1994 Depression screening for age 12+ 1995 BMI (ht and wt on same day) for 12/15/2001 age 18+ Hepatitis C screening for age 1012/15/2001 18-79 Tetanus booster 2003 Influenza for age 9-49 10/25/2021 Pap test for age 21-65 03/22/2024 03/22/2021, 03/22/2021, 08/13/2019, Additional history exists Results Not on filefrom Last 3 Months Insurance Payer Benefit Plan / Subscriber ID Effective Dates Phone Addre ss Type Group BLUE CROSS BLUE CROSS OF [id number] 2015-Adri [address] [facility] [place] [address] Guarantor Name Account Type Relation to Date of Phone Billing Patient Address Simona Che Personal/Family Self 1985 [address] (Home) [place] [phone] (Work)
--- OUTSIDE RECORDS SUMMARY | 2021-10-19 13:54 | XMS_ITS | Clinical Summary ---
:1985 Author Organization [facility] Address [address] [place] [address] Care Team Providers Name Role Phone Jie [...] for each transition of care or referral. [facility] Allergies No known active allergies Medications Medication [...] Comments Blood Pressure 97/57 02/15/2019 9:07 AM ROTARY SHEAR WORKER HELPER Pulse 61 02/15/2019 9:07 AM ROTARY SHEAR WORKER HELPER Temperature 36.8 ??C (98.3 ??F) 04/07/2017 5:36 PM ROTARY SHEAR WORKER HELPER Respiratory Rate 16 04/07/2017 5:36 PM ROTARY SHEAR WORKER HELPER Oxygen Saturation 100% 09/25/2014 9:05 AM CDT Inhaled Oxygen Concentration - - Weight 54.7 kg (120 lb 9.6 oz) 02/15/2019 9:07 AM ROTARY SHEAR WORKER HELPER Height 168.3 cm (5' 6.25) 04/09/2017 3:19 PM ROTARY SHEAR WORKER HELPER Body Mass Index 19.32 04/09/2017 3:19 PM ROTARY SHEAR WORKER HELPER Plan of Treatment Health Maintenance Due Date [...] Phone Addre ss Type Group [facility] [id number] 2016-Present [address] [address] [place] [address] (Work) Simona Che Personal/Famil Self 1985 [address]) [address] [phone] APARTMENT 20 [address] (Work) [place] [id number] [address] Che Personal/Famil Self 04/23/[address] (Home) [place] [phone] (Work) Advance Directives Latest Code Status on File Code Status Date Activated Date Inactivated Comments Full Code 05/28/2013 11:30 AM 05/28/2013 2:36 PM Care Teams Department Operations Manager Relationship Specialty Start Date End Date Jie Farah DO PCP - General Family Practice 04/05/16 [address] [place] [address]
--- OUTSIDE RECORDS SUMMARY | 2021-10-19 13:54 | XMS_ITS | Encounter Summary ---
:1985 Author Organization [facility] Address [address] [place] [address] Care Team Providers Name Role Phone Jie Mckeon DO Primary Care Provider Reason for Visit Reason Comments Refill SUMAtriptan (IMITREX) 100 MG tablet Encounter Details Date Type Department Care Team Description 01/27/2020 Refill [facility] 3850 Jie Mckeon, Re fill (SUMAtriptan Family Medicine DO (IMITREX) 100 MG [address] [place] [address] tab let) [place] [phone] (Wo rk) Social History Tobacco Use Types [...] Tablet by mouth as needed for Migraine. GRINDER Interface, Out [employer] Preference Prov Query - 01/27/2020 12:54 PM CST [...] MCKEON) Next scheduled visit: None Powered by [employer], Reference: [id number], 01/27/2020 12:54:06 PM CLAY GRINDER, Pool: PN REFILL WIZARD ADMIN ([id number]) GRINDER Adan Archibald - 01/27/2020 12:53 PM CST [...] refills) Please route to: Refill Pool (P [id number]) [place] FP Pool [place] Patients ONLY (P [id number]) [facility] Dr[facility] Avila ONLY (P [id number]) GRINDER documented in this encounter Plan of Treatment Not on filedocumented as of this encounter Visit Diagnoses Not on filedocumented in this encounter Care Teams Flight Mechanic Relationship Specialty Start Date End Date Jie Mckeon DO PCP - General Family Practice 04/05/16 [address] [place] [address] documented as of this encounter
--- OUTSIDE RECORDS SUMMARY | 2021-10-19 13:54 | XMS_ITS | Encounter Summary ---
:1985 Author Organization [facility] Address [address] [place] [address] Care Team Providers Name Role Phone Jie Mckeon DO Primary Care Provider Reason for Visit Reason Onset Date Comments Refill 03/29/2020 SUMAtriptan (IMITREX ) 100 MG tablet Encounter Details Date Type Department Care Team Description 03/29/2020 Refill [facility] 3850 Jie Mckeon, Re fill (SUMAtriptan Family Medicine DO (IMITREX) 100 MG [address] [place] [address] tab let) [place] [phone] (Wo rk) Social History Tobacco Use Types [...] Tablet by mouth as needed for Migraine. IDE GRINDER Keven Leblanc, RN - 03/29/2020 12:32 PM CST 90 day supply given per Emergency Refill Standing Order. Keven Leblanc RN 03/29/2020, 12:32 PM IDE GRINDER Interface, Out [employer] Prov Query - 03/29/2020 10:06 AM CST [...] MCKEON) Next scheduled visit: None Powered by [facility], Reference: [id number], 03/29/2020 10:06:04 AM CARBIDE GRINDER, Pool: [id number] FM REFILL ([id number]) IDE GRINDER documented in this encounter Plan of Treatment Not on filedocumented as of this encounter Visit Diagnoses Not on filedocumented in this encounter Care Teams Mottler Operator Relationship Specialty Start Date End Date Jie Mckeon DO PCP - General Family Practice 04/05/16 [address] [place] [address] documented as of this encounter
--- OUTSIDE RECORDS SUMMARY | 2021-10-19 13:54 | XMS_ITS | Encounter Summary ---
:1985 Author Organization [facility] Address [address] [place] [address] Care Team Providers Name Role Phone Jie Farah DO Primary Care Provider Encounter Details Date Type Department Care Team Description 06/05/2020 Immunization [place] COVMS Encounter for Vaccine Program administration of vaccine [address] (Primary Dx) [place], [place] [address] Social History Tobacco Use Types [...] Primary documented in this encounter Care Teams Burlesque Dancer Relationship Specialty Start Date End Date Jie Farah DO PCP - General Family Practice 04/05/16 [address] [place] [address] documented as of this encounter
--- OUTSIDE RECORDS SUMMARY | 2021-10-19 13:55 | XMS_ITS | Encounter Summary ---
:1985 Author Organization [facility] Address [address] [place] [address] Care Team Providers Name Role Phone Jie Farah DO Primary Care Provider Reason for Visit Reason Comments MEDICATION CHECK Encounter Details Date Type Department Care Team Description 05/14/2016 Office Visit [facility] 3850 Jie Farah, [place] graine without aura Family Medicine DO and without status [address] francisco rainosus, not [address] intractable (Primary [place], [place] Dx ) [phone] (Wo rk) Social History Tobacco Use Types [...] Body Mass Index 19.35 03/04/2016 9:31 AM BIN FILLER documented in this encounter Progress Notes Jie [...] migrainosus documented in this encounter Care Teams Geotechnical Engineering Technician Relationship Specialty Start Date End Date Jie Farah DO PCP - General Family Practice 04/05/16 [address] [place] [address] documented as of this encounter
--- OUTSIDE RECORDS SUMMARY | 2021-10-19 13:55 | XMS_ITS | Encounter Summary ---
:1985 Author Organization [facility] Address [address] [place] [address] Care Team Providers Name Role Phone Denisse Sue Mane DO Primary Care Provider Reason for Visit Reason Comments Annual Exam Encounter Details Date Type Department Care Team Description 03/04/2016 [facility] Nanette Kay Well female exam with routine gynecological exam (Primary Dx); Obstetrics/Gynecolog SUPERINTENDENT DRIVERS, SADDLE TREE STITCHER Oral contraceptive pill surveillance; y [address] Migraine without aura and with status mi grainosus, not intractable [address] [facility] 5th [place] [phone] (Wo rk) Social History Tobacco Use Types [...] Comments Blood Pressure 120/77 03/04/2016 9:31 AM SPORTS ACTIVITIES FOUL JUDGE Pulse 78 03/04/2016 9:31 AM SPORTS ACTIVITIES FOUL JUDGE Temperature - - Respiratory Rate - - Oxygen Saturation - - Inhaled Oxygen Concentration - - Weight 53.4 kg (117 lb 11.2 oz) 03/04/2016 9:31 AM SPORTS ACTIVITIES FOUL JUDGE Height 168.3 cm (5' 6.25) 03/04/2016 9:31 AM SPORTS ACTIVITIES FOUL JUDGE Body Mass Index 18.85 03/04/2016 9:31 AM SPORTS ACTIVITIES FOUL JUDGE documented in this encounter Patient Instructions Patient InstructionsNanette Kay APRN, CNP - 03/04/2016 9:54 AM CST Thank you for coming in today Kimberley for your Well Visit. No pap smear was indicated, you had a normal pap smear/negative HPV. Your next pap smear is due in 2019. Yearly physical exams are still recommended. I recommend you check [facility]- Find A Provider- to identify another M.D. [...] you have additional questions or concerns at [phone] or [employer]. TS ACTIVITIES FOUL JUDGE documented in this encounter Progress Notes Nanette [...] Past Surgical History Procedure Laterality Date ??? [place] teeth extraction ??? Foot surgery 2012 Family [...] are still recommended. I recommend you check [facility]- Find A Provider- to identify another M.D. [...] you have additional questions or concerns at [phone] or [employer]. Current Control:03/15 TS ACTIVITIES FOUL JUDGE documented in this encounter Plan of Treatment [...] migrainosus documented in this encounter Care Teams Burlap Bag Sewer Relationship Specialty Start Date End Date Denisse Sue DO PCP - General 05/12/13 04/04/16 [address] [place], [place] [phone] documented as of this encounter
--- OUTSIDE RECORDS SUMMARY | 2021-10-19 13:55 | XMS_ITS | Encounter Summary ---
:1985 Author Organization [facility] Address [address] [place] [address] Care Team Providers Name Role Phone Jie Farah DO Primary Care Provider Reason for Visit Reason Comments Refill SUMAtriptan (IMITREX) 100 MG tablet [Pharmacy Med Name: SUMATRIPTAN SUCC 100 MG TABLET] Encounter Details Date Type Department Care Team Description 06/19/2016 Refill [facility] [address], Refill (SUMAtriptan Family Medicine [address] (IMITREX) 100 MG tablet [address] [Pharmacy Med Name: [address] [place] SUMATRIPTAN SUCC 100 [place] [address] TABLET]) [address] [phone] Social History Tobacco Use Types Packs/Day Years [...] 76 mm Hg on 05/14/2016 Powered by [employer], Reference: [id number], 06/19/2016 7:15:38 AM CDT, Pool: [id number] FM REFILL ([id number]) documented in this encounter Plan of Treatment Not on filedocumented as of this encounter Visit Diagnoses Not on filedocumented in this encounter Care Teams Blender Machine Operator Relationship Specialty Start Date End Date Jie Farah DO PCP - General Family Practice 04/05/16 [address] [place] [address] documented as of this encounter
--- OUTSIDE RECORDS SUMMARY | 2021-10-19 13:55 | XMS_ITS | Encounter Summary ---
:1985 Author Organization [employer] Address [address] [place] [address] Care Team Providers Name Role Phone Linette, Denisse Mane DO Primary Care Provider Reason for Visit Reason Comments Dysuria Encounter Details Date Type Department Care Team Description 09/25/2014 Hospital Encounter [facility] Yancy Isaac, Dysuria [address] [place] [address] [facility] 3850 [facility] [phone] [place], [place] [address] (Wo rk) Social History Tobacco Use Types [...] (A) Collection Time Result Time U Specific [place] Urobilinogen Urine 09/25/14 08:54:00 09/25/14 09:09:00 1.020 Negative Final result Narrative: Performed at [facility], [address] [place] [address] Urine Microscopic: (Final result) Abnormal Component (Lab [...] from the original note were not included. [facility] 4[address] [facility] [address] [place] [address] Dept: [phone] [email or web address] Simona Che 09/25/2014 8:54 AM Hospital Encounter Description: Female : 1985 Department: [facility] Dept Thank you for choosing [facility] for your health care visit with Yancy Isaac MD. We are happy to care for you and provide this summary of your visit. Your primary care transition mgr is currently listed as Denisse Sue DO (General). HERE IS WHAT YOU NEED TO KNOW To learn how you can take steps to stay as healthy as you can be visit [email or web address] Discharge Instructions Painful Urination (Dysuria): After Your [...] Where can you learn more? Go to Kaggle/Cot[employer] and enter H814 in the search box. Current as of: November 02, 2013 Content Version: 10.4 ?? [phone] [employer]. HERE IS WHAT YOU NEED TO DO Call your clinic if: You develop new symptoms Your symptoms worsen unexpectedly You are not improving as expected You have questions about your visit or medications Future Appointments Provider Department Dept Phone 09/26/2014 3:00 PM Nanette Kay APRN, CORRECTIONS NURSE [facility] Obstetrics/Gynecology [phone] Please arrive 15 minutes early with your [...] 100 Neg - Trace mg/dL U Specific [place] 1.020 1.005 - 1.030 Urobilinogen Urine Negative [...] Ethnicity Preferred Language 1985 Female White Non- [place] Zealander This document contains confidential information about your [...] (ABNORMAL) Urine Culture (09/25/2014 9:30 AM CDT) [facility] Method Time Signature Source Urine HP CONVERSION [...] - 09/27/2014 6:06 AM CDT Performed at [facility] , ??[address] [place] [address], ?? CLIA Number [id number] Transcriptions 09/25/2014 9:30 AM CDTNotes Recorded by [...] Yancy Isaac MD LAB_1 Performing Organization Address City/[facility] Phon e Number HP CONVERSION (ABNORMAL) URINE MICROSCOPIC (09/25/2014 8:54 AM CDT) [facility] menuvox Method Time Signature Urine WBC 5-9 (A) [...] - 09/25/2014 9:11 AM CDT Performed at [place] [address] Yancy Isaac MD LAB_1 Performing Organization Address [facility] Phon e Number HP CONVERSION (ABNORMAL) URINALYSIS ROUTINE(MICRO IF POS) (09/25/2014 8:54 AM CDT) [facility] Method Time Signature Urine Type Urine:clean HP [...] U Specific 1.020 1.005 - HP CONVERSION [place] 1.030 Urobilinogen Negative Negative HP CONVERSION Urine Eu/dL Specimen Anatomical Collection Method Collection Time Receive d Time (Source) Location / / Volume Laterality Urine: 09/25/2014 8:54 AM 5 9:03 CDT AM CDT Narrative HP CONVERSION - 09/25/2014 9:09 AM CDT Performed at [facility], [address] [place] [address] Yancy Isaac MD LAB_1 Performing Organization Address [...] pills documented in this encounter Care Teams Torch Cutter Relationship Specialty Start Date End Date Denisse Sue, PCP - General 05/12/13 2 [address] [place] [address] documented as of this encounter
--- OUTSIDE RECORDS SUMMARY | 2021-10-19 13:55 | XMS_ITS | Encounter Summary ---
:1985 Author Organization [facility] Address [address] [place] [address] Care Team Providers Name Role Phone Jie Mckeon DO Primary Care Provider Reason for Visit Reason Comments Refill SUMAtriptan (IMITREX) 100 MG tablet [Pharmacy Med Name: SUMATRIPTAN SUCC 100 MG TABLET] Encounter Details Date Type Department Care Team Description 02/12/2018 Refill [facility] 3850 Jie Mckeon, Re fill (SUMAtriptan Family Medicine DO (IMITREX) 100 MG tablet [address] [Ph armacy Med Name: Bl[address]. [address] SUMATRIPTAN SUCC 100 MG [place], [place] TA BLET]) [phone] (Wo rk) Social History Tobacco Use Types [...] low priority to Refill Wizard Admin-PN Pool ([id number]) Sheree Tee - 02/18/2018 8:54 AM CST [...] encounter high priority to Refill Pool (P [id number]) Marga Mcdermott RN - 02/13/2018 5:46 PM CST Further Assistance Needed on Refill from Wallpaper Remover Steam Patient is overdue for Office visit. -> [...] HRS IF NEEDED. MAX 2 TABS/24HRS, 9DAYS/MONTH W MACHINE OPERATOR SINGLE SPINDLE Interface, Out Surescripts Prov Query - 02/12/2018 [...] 74 mm Hg on 04/09/2017 Powered by [employer], Reference: [id number], 02/12/2018 9:37:46 AM SCREW MACHINE OPERATOR SINGLE SPINDLE, Pool: [id number] FM REFILL ([id number]) W MACHINE OPERATOR SINGLE SPINDLE documented in this encounter Plan of Treatment Not on filedocumented as of this encounter Visit Diagnoses Not on filedocumented in this encounter Care Teams Rn Interventional Relationship Specialty Start Date End Date Jie Mckeon DO PCP - General Family Practice 04/05/16 [address] [place] [address] documented as of this encounter
--- OUTSIDE RECORDS SUMMARY | 2021-10-19 13:55 | XMS_ITS | Encounter Summary ---
:1985 Author Organization [facility] Address [address] [place] [address] Care Team Providers Name Role Phone Denisse Sue DO Primary Care Provider Reason for Visit Reason Comments Annual Exam Encounter Details Date Type Department Care Team Description 12/22/2013 [facility] Nicholas Kay, Routine gen eral medical examination at a health care facility (Primary Dx); Obstetrics/Gynecolog y DON GRANT Special screening examination for unspec ified chlamydial disease [address] [place], [place] [facility] [address] [place] [address] [place], [place] [phone] (Wo rk) Social History Tobacco Use Types [...] pending. I will forward your results through [facility], or call you if there are anyconcerns. In the past you have had problems with low iron causing anemia. Most recent hemoglobin was normal at12.2. Please contact me at [phone] if there is anything you need. Have a great year. SCALER documented in this encounter Progress Notes Nicholas [...] Past Surgical History Procedure Laterality Date ??? Tolley tooth extraction Family History: Family History Problem [...] Order Specific Question: Ordering Provider? (Dr, Res, SHEET METAL SUPERINTENDENT, or PA Only) Answer: NICHOLAS KAY [[id number]] Patient Instructions It was good to meet [...] pending. I will forward your results through [facility], or call you if there are anyconcerns. In the past you have had problems with low iron causing anemia. Most recent hemoglobin was normal at12.2. Please contact me at [phone] if there is anything you need. Have a great year. Current Control: Condoms SCALER documented in this encounter Plan of Treatment [...] Component Value Ref Test Analysis Performed At [facility] gist Range Method Time Signature Source [...] disease documented in this encounter Care Teams Maintenance Engineer Relationship Specialty Start Date End Date Denisse Sue DO PCP - General 05/12/13 04/04/16 [address] [place] [address] documented as of this encounter
--- OUTSIDE RECORDS SUMMARY | 2021-10-19 13:55 | XMS_ITS | Encounter Summary ---
:1985 Author Organization [facility] Address [address] [place] [address] Care Team Providers Name Role Phone Jie Farah DO Primary Care Provider Reason for Visit Reason Onset Date Comments Refill 02/18/2018 Encounter Details Date Type Department Care Team Description 02/18/2018 Refill [facility] 3850 Family Jie Roper, Refill Medicine [address] [place] [address] [place], [place] [address] [phone] Social History Tobacco Use Types Packs/Day Years [...] AM CST See Refill Encounter dated 02/12/18 TY CLERK documented in this encounter Plan of Treatment Not on filedocumented as of this encounter Visit Diagnoses Not on filedocumented in this encounter Care Teams Stores Despatch Hand Relationship Specialty Start Date End Date Jie Farah DO PCP - General Family Practice 04/05/16 [address] [place] [address] documented as of this encounter
--- OUTSIDE RECORDS SUMMARY | 2021-10-19 13:55 | XMS_ITS | Encounter Summary ---
:1985 Author Organization [employer] Address [address] [place] [address] Care Team Providers Name Role Phone Linette, Denisse Mane DO Primary Care Provider Encounter Details Date Type Department Care Team Description 05/28/2013 Hospital Encounter [facility] [address], [address] Bld Ambul Surge ry DPM [address] [place] [address] [phone] (Wo rk) Social History Tobacco Use Types [...] signed by Elizabeth Hurtado DPM at 05/31/13 0974 Author: Elizabeth Hurtado DPM Service: (none) Author Type: Physician Filed: 05/31/13 0951 Note Time: 05/28/13 1328 Status: Signed Diamond Sander: Elizabeth Hurtado DPM (Physician) NAME: ODESSA CHE MR#: [id number] CSN: [id number] AUTHENTICATING CLINICIAN: Elizabeth Hurtado DPM CONFIRM #: [id number] LOC: 1 OPERATIVE REPORT DATE OF OPERATION: 05/28/2013 : 1985 SURGEON: Elizabteh Hurtado DPM ASSIST: None. PREOPERATIVE DIAGNOSES: 1. [...] 6 weeks postoperatively. SMS:MEDQ C: CONFIRM #: [id number] Elizabeth Hurtado DPM - 05/28/2013 11:28 AM [...] Results Pathology Report (05/28/2013 7:00 AM CDT) [facility] gist Method Time Signature Path: ?FINAL SURGICAL PATHOLOGY REP ORT HP CONVERSION Pathology #: [id number] ? Date Obtained: 05/28/2013 ?Date Received: 05/28/2013 [...] filled with a thin, clear serous fluid. Engineering Analyst sections are submitted in 4469 . ?WEYAL [...] on filedocumented in this encounter Care Teams Development Planner Relationship Specialty Start Date End Date Denisse Sue DO PCP - General 05/12/13 04/04/16 [address] [place] [address] documented as of this encounter
--- OUTSIDE RECORDS SUMMARY | 2021-10-19 13:55 | XMS_ITS | Encounter Summary ---
:1985 Author Organization [employer] Address [address] [place] [address] Care Team Providers Name Role Phone Jie Farah DO Primary Care Provider Reason for Visit Reason Comments PAIN, SINUS Encounter Details Date Type Department Care Team Description 04/07/2017 Hospital Encounter [facility] Justine Winn, Acute sinusitis with Care PA-C symptoms > 10 days [address] [address] [phone] Social History Tobacco Use Types Packs/Day Years [...] Comments Blood Pressure 118/80 04/07/2017 5:36 PM HEAD [employer] Pulse 60 04/07/2017 5:36 PM HEAD [employer] Temperature 36.8 ??C (98.3 ??F) 04/07/2017 5:36 PM HEAD [employer] Respiratory Rate 16 04/07/2017 5:36 PM HEAD [employer] Oxygen Saturation - - Inhaled Oxygen Concentration [...] ER right away for recheck if concerns. [employer] AttachmentsThe following attachments cannot be sent through Care Everywhere. SINUSITIS (UKRAINIAN)documented in this encounter Medications at Time of [...] for recheck if concerns. Discharge References/Attachments SINUSITIS (UKRAINIAN) [employer] documented in this encounter Plan of Treatment Not on filedocumented as of this encounter Visit Diagnoses Diagnosis Acute sinusitis with symptoms > 10 days Acute sinusitis, unspecified Triage Assessment Note - Katelyn Neil RN - 04/07/2017 5:34 PM CST C/o sinus pain, congestion, decreased smell sensation. Sx started Sat. [employer] documented in this encounter Care Teams Mirror Installer Relationship Specialty Start Date End Date Jie Farah DO PCP - General Family Practice 04/05/16 [address] [place] [address] documented as of this encounter
--- OUTSIDE RECORDS SUMMARY | 2021-10-19 13:55 | XMS_ITS | Encounter Summary ---
:1985 Author Organization [facility] Address [address] [place] [address] Care Team Providers Name Role Phone Denisse Sue Primary Care Provider Reason for Visit Reason Comments Refill Encounter Details Date Type Department Care Team Description 05/19/2015 Refill [facility] Nanette Kay A PRN, CNP Refill Obstetrics/Gynecolog y [address] [facility] 5th [place] [address] [place], [place] [address] (Wo rk) Social History Tobacco Use Types [...] to switch pharmacies [facility] [place] and they will call [facility] [address] (which is where your prescription was sent) and they will transfer it. Thank you! Loulou [place] MANAGER STORE Triage ----- Message ----- From: ODESSA CHE Sent: 05/19/2015 6:56 AM CDT To: Nanette Kay APRN, CNP Subject: Medication Renewal Request Original authorizing provider: Nanette Kay APRN, CORRECTIONAL OFFICER Odessa Che would like a refill of the following medications: norethindrone-ethinyl estradiol (MICROGESTIN FE 03/15, ,) 1 mg-20 mcg (21)/75 mg (7) per tablet [Nanette Kay APRN, DON] Preferred pharmacy: [facility] [address] [place] [address] [facility] Comment: documented in this encounter Plan of Treatment Not on filedocumented as of this encounter Visit Diagnoses Not on filedocumented in this encounter Care Teams Ux Developer Designer Relationship Specialty Start Date End Date Denisse Sue DO PCP - General 05/12/13 04/04/16 [address] [place], [place] [address] documented as of this encounter
--- OUTSIDE RECORDS SUMMARY | 2021-10-19 13:55 | XMS_ITS | Encounter Summary ---
:1985 Author Organization [facility] Address [address] [place] [address] Care Team Providers Name Role Phone Denisse Sue DO Primary Care Provider Encounter Details Date Type Department Care Team Description 05/12/2013 Lab Visit [facility] 3850 L aboratory Anemia [address] [facility] [place] [address] Social History Tobacco Use Types [...] - 05/12/2013 8:23 AM CDT Performed at [facility], [address] [place] [address] Denisse Sue DO LAB_1 Performing Organization Address City/State/ZIP Code Phon e Number HP CONVERSION documented in this encounter Visit Diagnoses Diagnosis Anemia Anemia, unspecified documented in this encounter Care Teams Business Asst Relationship Specialty Start Date End Date Denisse Sue DO PCP - General 05/12/13 2 [address] [place] [address] documented as of this encounter
--- OUTSIDE RECORDS SUMMARY | 2021-10-19 13:55 | XMS_ITS | Encounter Summary ---
:1985 Author Organization [facility] Address [address] [place] [address] Care Team Providers Name Role Phone Denisse Sue DO Primary Care Provider Reason for Visit Reason Comments Refill Encounter Details Date Type Department Care Team Description 12/06/2014 [facility] Visit [facility] Nanette Kay, Counseling for Obstetrics/Gynecolog DON GRANT control, oral y [address] contraceptives (Primary [address] Dx) [facility] [address] [place] [address] [place], [place] [phone] [address] Social History Tobacco Use Types Packs/Day Years [...] encounter Patient Instructions Patient InstructionsNanette Kay, JUANITA, MANAGER R D - 12/06/2014 9:33 AM CDT Thank you [...] smear for February 2015. You can call [phone] to set the appointment. I am available at [phone] or through [employer] if your have any questions. documented in [...] smear for February 2015. You can call [phone] to set the appointment. I am available at [phone] or through [employer] if your have any questions. The patient [...] contraceptives documented in this encounter Care Teams Operator And Truck Driver Relationship Specialty Start Date End Date Denisse Sue DO PCP - General 05/12/13 2 [address] [place] [address] documented as of this encounter
--- OUTSIDE RECORDS SUMMARY | 2021-10-19 13:55 | XMS_ITS | Encounter Summary ---
:1985 Author Organization [facility] Address [address] [place] [address] Care Team Providers Name Role Phone Jie Farah DO Primary Care Provider Reason for Visit Reason Onset Date Comments Refill 07/15/2017 Encounter Details Date Type Department Care Team Description 07/15/2017 Refill [facility] 3850 Family Jie Roper DO Refill Medicine [address] [place] [address] [place], [place] [address] [phone] Social History Tobacco Use Types Packs/Day Years [...] MG tablet [Jie Farah DO] Preferred pharmacy: [facility] [address] [facility] [address] [facility] Comment: Good Morning, Would it be possible to get a renewal of this prescription? It has been really beneficial in helping with headaches. I apologize if this was a duplication of the pharmacy. Thank you. Kimberley documented in this encounter Plan of Treatment Not on filedocumented as of this encounter Visit Diagnoses Not on filedocumented in this encounter Care Teams Bathing Suit Maker Relationship Specialty Start Date End Date Jie Farah DO PCP - General Family Practice 04/05/16 [address] [place] [address] documented as of this encounter
--- OUTSIDE RECORDS SUMMARY | 2021-10-19 13:55 | XMS_ITS | Encounter Summary ---
:1985 Author Organization [facility] Address [address] [place] [address] Care Team Providers Name Role Phone Denisse Sue DO Primary Care Provider Reason for Visit Reason Comments Surgery Orders Encounter Details Date Type Department Care Team Description 05/17/2013 Notes/Orders [facility] [address] Elizabeth Hurtado, Podiatric MedSurg DPM [address] [place] [address] [phone] Social History Tobacco Use Types Packs/Day Years Used Date Smoking Tobacco: Never Assessed Sex Assigned at Date Recorded Not on file documented as of this encounter Plan of Treatment Not on filedocumented as of this encounter Visit Diagnoses Not on filedocumented in this encounter Care Teams Car Supervisor Relationship Specialty Start Date End Date Denisse Sue DO PCP - General 05/12/13 2 [address] [place], [place] [address] documented as of this encounter
--- OUTSIDE RECORDS SUMMARY | 2021-10-19 13:55 | XMS_ITS | Encounter Summary ---
:1985 Author Organization [employer] Address [address] [place] [address] Care Team Providers Name Role Phone Jie Farah DO Primary Care Provider Reason for Visit Reason Comments MEDICATION CHECK migraine Encounter Details Date Type Department Care Team Description 02/23/2018 Office Visit [facility] 3850 Jie Farah, Mi graine without aura Family Medicine DO and without status [address] francisco rainosus, not [address] intractable (Primary [place], [place] Dx ) [phone] (Wo rk) Social History Tobacco Use Types [...] Comments Blood Pressure 108/75 02/23/2018 9:02 AM TELECOMMUNICATIONS FIELD ENGINEER Pulse 73 02/23/2018 9:02 AM TELECOMMUNICATIONS FIELD ENGINEER Temperature - - Respiratory Rate - - Oxygen Saturation - - Inhaled Oxygen Concentration - - Weight 51.3 kg (113 lb) 02/23/2018 9:02 AM TELECOMMUNICATIONS FIELD ENGINEER Height - - Body Mass Index 18.1 04/09/2017 3:19 PM TELECOMMUNICATIONS FIELD ENGINEER documented in this encounter Patient Instructions Patient InstructionsJj Campoverde, CROCHETER - 02/23/2018 9:00 AM CST Images from [...] for dessert. Limit deep-fried vegetables, such as british virgin islander fries. ? Choose lean protein, such as [...] that works best for you. ? For [facility], call [phone]. ? For [facility], call [phone]. ? For [facility], call [phone]. ? For [facility], call [phone]. ? For [facility], call [phone]. (06/2017) ??[facility] COMMUNICATIONS FIELD ENGINEER documented in this encounter Progress Notes Jj Campoverde CMA - 02/23/2018 9:00 AM CST Medications needing refills have been pended for year supply. Requested Prescriptions Pending Prescriptions Disp Refills ??? SUMAtriptan (IMITREX) 100 MG tablet 54 Tablet 0 Sig: Take 1 Tablet by mouth as needed for Migraine. May repeat after 2 hours if needed. Max 2 tabs/24 hours. Max 9 days/month COMMUNICATIONS FIELD ENGINEER Jie Farah DO - 02/23/2018 9:00 AM [...] D as well to help prevent migraines. COMMUNICATIONS FIELD ENGINEER documented in this encounter Plan of Treatment Not on filedocumented as of this encounter Visit Diagnoses Diagnosis Migraine without aura and without status migrainosus, not intractable - Primary Migraine without aura, without mention o f intractable migraine without mention of status migrainosus documented in this encounter Care Teams Box Blank Machine Feeder Relationship Specialty Start Date End Date Jie Farah DO PCP - General Family Practice 04/05/16 [address] [place] [address] documented as of this encounter
--- OUTSIDE RECORDS SUMMARY | 2021-10-19 13:55 | XMS_ITS | Encounter Summary ---
:1985 Author Organization [employer] Address [address] [place] [address] Care Team Providers Name Role Phone Denisse Sue Primary Care Provider Reason for Visit Reason Comments HEADACHE,MIGRAINE Encounter Details Date Type Department Care Team Description 04/08/2015 Hospital Encounter [facility]iao [facility] without Care MD Lillian aura and without [address] status migr ainosus, [address] not intractable [facility], [address] [place] [phone] Social History Tobacco Use Types Packs/Day Years Used Date Smoking Tobacco: Never Assessed Sex Assigned at Date Recorded Not on file documented as of this encounter Last Filed Vital Signs Vital Sign Reading Time Taken Comments Blood Pressure 112/70 04/08/2015 2:46 PM HOURLY SALES STAFF Pulse 89 04/08/2015 2:46 PM HOURLY SALES STAFF Temperature 36.7 ??C (98.1 ??F) 04/08/2015 2:46 PM HOURLY SALES STAFF Respiratory Rate 16 04/08/2015 2:46 PM HOURLY SALES STAFF Oxygen Saturation - - Inhaled Oxygen Concentration [...] for her. Past Medical History: Reviewed in [facility] Social History: Reviewed in [facility] Review of Systems: See HPI, all [...] 1-2 weeks for a recheck. Contact information [address] [facility] [phone] LY SALES STAFF Cherelle Clay RN - 04/08/2015 3:32 PM CST rechecked on pt. pt states pain level now 3/10 to head. pt states feels much better. LY SALES STAFF Cherelle Clay RN - 04/08/2015 3:11 PM CST pt resting on table, no distress noted. pt states migraine 8/10 now. will monitor and recheck post Zofran and Imitrex. LY SALES STAFF documented in this encounter Miscellaneous Notes Medication [...] RN Oral - 04/08/15 1510 - - LY SALES STAFF ED AVS Snapshot - Bob Saavedra MD - 04/08/2015 3:50 PM CST Images from the original note were not included. [facility] [address] [facility] [address] [place] [id number] Dept: [phone] www.[email or web address] Simona Che 04/08/2015 2:41 PM Hospital Encounter Description: Female : 1985 Department: [facility] Thank you for choosing [facility] for your health care visit with Norman Liao MD. We are happy to care for you and provide this summary of your visit. Your primary customer care professional is currently listed as Denisse Sue DO. HERE IS WHAT YOU NEED TO KNOW To learn how you can take steps to stay as healthy as you can be visit [email or web address] Discharge Instructions Migraine Headache: Care Instructions Your [...] Where can you learn more? Go to Orad/Jammit and enter U690 in the search box. Current as of: April 15, 2014 Content Version: 107 ?? 4503-2799 [employer]. HERE IS WHAT YOU NEED TO DO Call your clinic if: You develop new symptoms Your symptoms worsen unexpectedly You are not improving as expected You have questions about your visit or medications Follow-up Information Follow up with Denisse Sue DO. Specialty: Family Medicine Why: In the next 1-2 weeks for a recheck. Contact information: [address] [facility] [address] HERE IS INFORMATION FROM TODAY'S VISIT Reason [...] Ethnicity Preferred Language 1985 Female White Non- Thai This document contains confidential information about your health and care. It is provided directlyto you for your personal, private use only. LY SALES STAFF documented in this encounter Plan of Treatment [...] tried taking Excedrin migraine with no relief. LY SALES STAFF documented in this encounter Care Teams Poured Concrete Wall Technician Relationship Specialty Start Date End Date Denisse Sue DO PCP - General 05/12/13 2 [address] [place] [address] documented as of this encounter
--- OUTSIDE RECORDS SUMMARY | 2021-10-19 13:55 | XMS_ITS | Encounter Summary ---
:1985 Author Organization [facility] Address [address] [place] [address] Care Team Providers Name Role Phone Denisse Sue DO Primary Care Provider Reason for Visit Reason Comments PRE-OP EXAM Encounter Details Date Type Department Care Team Description 05/12/2013 Pre-Op Visit [place] [address] Denisse Sue DO Preop examination (Primary Dx); Family Medicine [address] Anemia [address] [facility] [facility] [place] [phone] Social History Tobacco Use Types Packs/Day Years [...] Sue DO Primary care physician: Denisse Sue [phone] CHIEF COMPLAINT Pre-Operative Evaluation ANTICIPATED PROCEDURE Left [...] Past Surgical History Procedure Laterality Date ??? [place] tooth extraction Family History Problem Relation Age [...] Concern Simona Che is a patient at [facility] and [facility]. For health reasons Kimberley would benefit from an ergonomic standing desk. Please feel free to contact me with any further questions. Comments: Underwood DO ER WORKER POWER UNIT OPERATOR documented in this encounter Plan of Treatment Not on filedocumented as of this encounter Visit Diagnoses Diagnosis Preop examination - Primary Preoperative examination, unspecified Anemia Anemia, unspecified documented in this encounter Care Teams Aircraft Log Clerk Relationship Specialty Start Date End Date Denisse Sue DO PCP - General 05/12/13 04/04/16 [address] [place] [address] documented as of this encounter
--- OUTSIDE RECORDS SUMMARY | 2021-10-19 13:55 | XMS_ITS | Encounter Summary ---
:1985 Author Organization [employer] Address [address] [place] [address] Care Team Providers Name Role Phone Sofi Jie Rock DO Primary Care Provider Reason for Visit Reason Comments Annual Exam Encounter Details Date Type Department Care Team Description 04/09/2017 [facility] Nanette Kay Well female exam with routine gynecological exam (Primary Dx); Obstetrics/Gynecolog COTTON BREEDER, ARTIFICIAL FLOWER MAKER Oral contraceptive pill surveillance y [address] [facility] 5th [place] [address] [phone] (Wo rk) Social History Tobacco Use Types [...] Comments Blood Pressure 110/74 04/09/2017 3:19 PM WIDE AREA NETWORK SYSTEMS ADMINISTRATOR Pulse 82 04/09/2017 3:19 PM WIDE AREA NETWORK SYSTEMS ADMINISTRATOR Temperature - - Respiratory Rate - - Oxygen Saturation - - Inhaled Oxygen Concentration - - Weight 53.3 kg (117 lb 6.4 oz) 04/09/2017 3:19 PM WIDE AREA NETWORK SYSTEMS ADMINISTRATOR Height 168.3 cm (5' 6.25) 04/09/2017 3:19 PM WIDE AREA NETWORK SYSTEMS ADMINISTRATOR Body Mass Index 18.81 04/09/2017 3:19 PM WIDE AREA NETWORK SYSTEMS ADMINISTRATOR documented in this encounter Patient Instructions Patient [...] continue your pills. I am available at [phone] or through [employer]ie if you have any concerns. Happy Liane's Day. I hope you are feeling better.soon.. AREA NETWORK SYSTEMS ADMINISTRATOR documented in this encounter Progress Notes Nanette [...] continue your pills. I am available at [phone] or through [employer]ie if you have any concerns. Happy Rob's Day. I hope you are feeling better.soon.. Current Control:OCPs AREA NETWORK SYSTEMS ADMINISTRATOR documented in this encounter Plan of Treatment Not on filedocumented as of this encounter Visit Diagnoses Diagnosis Well female exam with routine gynecologi bre exam - Primary Routine gynecological examination Oral contraceptive pill surveillance Surveillance of previously prescribed co ntraceptive pill documented in this encounter Care Teams Mems Engineer Relationship Specialty Start Date End Date Jie Farah DO PCP - General Family Practice 04/05/16 [address] [place] [address] documented as of this encounter
--- OUTSIDE RECORDS SUMMARY | 2021-10-19 13:55 | XMS_ITS | Encounter Summary ---
:1985 Author Organization [facility] Address [address] [place] [address] Care Team Providers Name Role Phone Jie Mckeon DO Primary Care Provider Reason for Visit Reason Comments Refill SUMAtriptan (IMITREX) 100 MG tablet [Pharmacy Med Name: SUMATRIPTAN SUCC 100 MG TABLET] Encounter Details Date Type Department Care Team Description 11/03/2018 Refill [facility] [address] Jie Mckeon, Re fill (SUMAtriptan Family Medicine DO (IMITREX) 100 MG tablet [address] [Ph armacy Med Name: Blvd. BLVD SUMATRIPTAN SUCC 100 MG [employer], [place] TA BLET]) [phone] (Wo rk) Social History Tobacco Use Types [...] 75 mm Hg on 02/23/2018 Powered by Bellabox, Reference: [id number], 11/03/2018 8:37:25 AM CDT, Pool: [id number] FM REFILL ([id number]) documented in this encounter Plan of Treatment Not on filedocumented as of this encounter Visit Diagnoses Not on filedocumented in this encounter Care Teams Lead Pastor Relationship Specialty Start Date End Date Jie Mckeon DO PCP - General Family Practice 04/05/16 [address] [place], [place] [address] documented as of this encounter
--- OUTSIDE RECORDS SUMMARY | 2021-10-19 13:55 | XMS_ITS | Encounter Summary ---
:1985 Author Organization [employer] Address [address] [place] [address] Care Team Providers Name Role Phone Md MINA Leigh Primary Care Provider Encounter Details Date Type Department Care Team Description 04/01/2013 Imaging CTMRI Radiology MRI Left ankle pain (Primary Dx) [address] [facility] [place] [address] Social History Tobacco Use Types Packs/Day Years Used Date Smoking Tobacco: Never Assessed Sex Assigned at Date Recorded Not on file documented as of this encounter Plan of Treatment Not on filedocumented as of this encounter Procedures Procedure Name Priority Date/Time Associated Diagnosis Comme nts MR ANKLE LT W/WO IV Routine 04/01/2013 8:02 PM Left ankle pain Results for this CONT TOOL REPAIRER BENCH procedure are i n the results section. documented in this encounter Results MR Ankle Lt W/WO IV Cont (04/01/2013 8:02 PM TOOL REPAIRER BENCH) Anatomical Region Laterality Modality Lower Extremity, Ankle, Foot, Leg, Skeletal, Foot & Ankle Le ft Other Specimen (Source) Anatomical Location Collection Method / Collectio n Time Received Time / Laterality Volume Impressions 04/02/2013 8:08 AM TOOL REPAIRER BENCH IMPRESSION: 1. Cystic 1.9 cm lesion superficial [...] is intact. ?? Narrative 04/02/2013 8:08 AM TOOL REPAIRER BENCH TECHNIQUE: Multiplanar and multisequenti al images of [...] foot documented in this encounter Care Teams Imaging Technologist Relationship Specialty Start Date End Date Md Lu, PCP - General 05/26/10 05/11/13 [place] [address] documented as of this encounter
--- OUTSIDE RECORDS SUMMARY | 2021-10-19 13:55 | XMS_ITS | Encounter Summary ---
:1985 Author Organization [facility] Address [address] [place] [address] Care Team Providers Name Role Phone Linette, Denisse Mane ZARAGOZA Primary Care Provider Reason for Visit Reason Comments Post-Op Check Encounter Details Date Type Department Care Team Description 07/21/2013 Office Visit [facility] [address] Elizabeth Hurtado toperative Podiatric MedSurg FAN Gilliam follow-up (Primary Dx) [address] [facility] [place] [phone] (Wo rk) Social History Tobacco Use Types Packs/Day Years Used Date Smoking Tobacco: Never Assessed Sex Assigned at Date Recorded Not on file documented as of this encounter Progress Notes Elizabeth Hurtado DPM - 07/21/2013 9:05 AM CDT Progress Notes signed by Elizabeth Hurtado DPM at 07/21/13 8008 Author: Elizabeth Hurtado DPM Service: (none) Author Type: Physician Filed: 07/21/13 0388 Note Time: 07/21/131217 Status: Signed Can Marker: Elizabeth Hurtado DPM (Physician) NAME: ODESSA CHE MR#: [id number] CSN: [id number] AUTHENTICATING CLINICIAN: Elizabeth Hurtado DPM CONFIRM #: [id number] LOC: 439 CLINIC PROGRESS NOTE DATE OF [...] another month. She can continue with an rkxu-sqz-kmzjlqc scar product, such as a silicone gel product. Will release her today since she is doing quite well. Physical therapy referral was placed in case she would like to proceed with that if needed. SMS:MEDQ C: CONFIRM #: [id number] documented in this encounter Plan of Treatment Not on filedocumented as of this encounter Visit Diagnoses Diagnosis Postoperative follow-up - Primary Follow-up examination, following unspeci fied surgery documented in this encounter Care Teams System Specialist Relationship Specialty Start Date End Date Denisse Sue DO PCP - General 05/12/13 04/04/16 [address] [place] [address] documented as of this encounter
--- OUTSIDE RECORDS SUMMARY | 2021-10-19 13:55 | XMS_ITS | Encounter Summary ---
:1985 Author Organization [facility] Address [address] [place] [address] Care Team Providers Name Role Phone Jie Farah DO Primary Care Provider Reason for Visit Reason Comments Sore Throat Encounter Details Date Type Department Care Team Description 05/18/2019 Nurse Triage [facility] Nurse Line Jie Farah, DO Sore Throat [address] [facility] [address] [place], [place] [address] [place] [address] [phone] Social History Tobacco Use Types Packs/Day Years [...] [facility] She also returned from [facility] on 05/07/19. Problem list reviewed as related to this call. Reason for Disposition ? ? [1] Sore throat is the only symptom AND [2] sore throat present < 48 hours Protocols used: SORE [id number] documented in this encounter Plan of Treatment Not on filedocumented as of this encounter Visit Diagnoses Not on filedocumented in this encounter Care Teams Billing Checker Relationship Specialty Start Date End Date Jie Farah DO PCP - General Family Practice 04/05/16 [address] [place] [address] documented as of this encounter
--- OUTSIDE RECORDS SUMMARY | 2021-10-19 13:55 | XMS_ITS | Encounter Summary ---
:1985 Author Organization [facility] [facility] Address [address] [facility] [place] [address] Care Team Providers Name Role Phone Jie Mckeon DO Primary Care Provider Reason for Visit Reason Onset Date Comments Refill 07/14/2019 SUMAtriptan (IMITREX ) 100 MG tablet Encounter Details Date Type Department Care Team Description 07/14/2019 Refill [facility] [address] Jie Mckeon, Re fill (SUMAtriptan Family Medicine DO (IMITREX) 100 MG [address] [place] [address]) [place] [phone] (Wo rk) Social History Tobacco Use Types [...] mouth as needed for Migraine. Interface, Out [employer] Query - 07/14/2019 9:55 AM CDT SUMAtriptan [...] 57 mm Hg on 02/15/2019 Powered by Alsbridge, Reference: [id number], 07/14/2019 9:55:23 AM CDT, Pool: [id number] FM REFILL ([id number]) documented in this encounter Plan of Treatment Not on filedocumented as of this encounter Visit Diagnoses Not on filedocumented in this encounter Care Teams Sap Integration Architect Relationship Specialty Start Date End Date Jie Mckeon, PCP - General Family Practice 04/05/16 [address] [facility] [place] [address] documented as of this encounter
--- OUTSIDE RECORDS SUMMARY | 2021-10-19 13:55 | XMS_ITS | Encounter Summary ---
:1985 Author Organization [facility] Address [address] [place] [address] Care Team Providers Name Role Phone Linette, Denisse Mane ZARAGOZA Primary Care Provider Reason for Visit Reason Comments Post-Op Check Encounter Details Date Type Department Care Team Description 06/21/2013 Office Visit [facility] [address] Elizabeth Hurtado toperative Podiatric MedSurg FAN Gilliam follow-up (Primary Dx) [address] [place] [address] [facility] [place] [phone] (Wo rk) Social History Tobacco Use Types Packs/Day Years Used Date Smoking Tobacco: Never Assessed Sex Assigned at Date Recorded Not on file documented as of this encounter Progress Notes Elizabeth Hurtado DPM - 06/21/2013 8:33 AM CDT Progress Notes signed by Elizabeth Hurtado DPM at 06/22/131621 Author: Elizabeth Hurtado DPM Service: (none) Author Type: Physician Filed: 06/22/131621 Note Time: 06/21/132144 Status: Signed Hair Boiler: Elizabeth Hurtado DPM (Physician) NAME: ODESSA CHE MR#: [id number] CSN: [id number] AUTHENTICATING CLINICIAN: Elizabeth Hurtado DPM CONFIRM #: [id number] LOC: 439 CLINIC PROGRESS NOTE DATE OF [...] in Epic. ALLERGIES: Reviewed and updated in [facility]. OBJECTIVE: Incision line is well healed. [...] some scar tissue massage or use an fefi-qqt-jcdertm scar product such as a silicone gel product. In 2 weeks or so, she can gradually transfer to a regular shoe. No high-impact running or jumping activities for at least another month. Recheck with me in 1 month for reevaluation. SMS:MEDQ C: CONFIRM #: [id number] documented in this encounter Plan of Treatment Not on filedocumented as of this encounter Visit Diagnoses Diagnosis Postoperative follow-up - Primary Follow-up examination, following unspeci fied surgery documented in this encounter Care Teams Strategy Analyst Relationship Specialty Start Date End Date Denisse Sue DO PCP - General 05/12/13 04/04/16 [address] [place] [address] documented as of this encounter
--- OUTSIDE RECORDS SUMMARY | 2021-10-19 13:55 | XMS_ITS | Encounter Summary ---
:1985 Author Organization [facility] Address [address] [place] [address] Care Team Providers Name Role Phone Denisse Sue DO Primary Care Provider Reason for Visit Reason Comments Contraception Encounter Details Date Type Department Care Team Description 09/26/2014 [facility] Nanette Kay, Other bret al Obstetrics/Gynecolog DON GRANT counseling and advice y [address] for contraceptive [address] [facility] 5th Floor management ([place], [place] Dx ) [phone] (Wo rk) Social History Tobacco Use Types [...] CDT Thank you for coming in today iKmberley to review options regarding control. We discussed [...] cycle of pills, please contact me at [phone] or through [employer]seeds to review options. Take care Kimberley. documented [...] Past Surgical History Procedure Laterality Date ??? [place] tooth extraction History Social History ??? Marital [...] cycle of pills, please contact me at [phone] or through 22seeds to review options. Take care Kimberley. The patient was discharged ambulatory and in stable condition. documented in this encounter Plan of Treatment Not on filedocumented as of this encounter Visit Diagnoses Diagnosis Other general counseling and advice for contraceptive management - Primary documented in this encounter Care Teams Cotton Grader Relationship Specialty Start Date End Date Denisse Sue DO PCP - General 05/12/13 04/04/16 [address] [place] [address] documented as of this encounter
--- OUTSIDE RECORDS SUMMARY | 2021-10-19 13:55 | XMS_ITS | Encounter Summary ---
:1985 Author Organization [facility] Address [address] [place] [address] Care Team Providers Name Role Phone Denisse Sue Primary Care Provider Reason for Visit Reason Comments Post-Op Check Encounter Details Date Type Department Care Team Description 06/07/2013 Office Visit [facility] 3900 Nurse, P3900 Pod Local ized superficial Podiatric MedSurg swelling, mass, or lump [address] (Primary Dx) [place] [address] Social History Tobacco Use Types Packs/Day Years [...] number to call with any concerns is [phone] documented in this encounter Progress Notes Priscilla [...] Primary documented in this encounter Care Teams Plant Quality Manager Relationship Specialty Start Date End Date Denisse Sue DO PCP - General 05/12/13 04/04/16 [address] [place] [address] documented as of this encounter
--- OUTSIDE RECORDS SUMMARY | 2021-10-19 13:55 | XMS_ITS | Encounter Summary ---
:1985 Author Organization [facility] Address [address] [place] [address] Care Team Providers Name Role Phone Sofi Jie Shweta ZARAGOZA Primary Care Provider Reason for Visit Reason Comments Refill Encounter Details Date Type Department Care Team Description 03/08/2018 [facility]ill [facility] Nicholas Kay A PRN, SCRAP DROP ENGINEER Refill Obstetrics/Gynecolog y [address] [facility] 5th [place] [address] [place], [place] [address] (Wo rk) Social History Tobacco Use Types [...] Department Center 04/22/2018 7:30 AM Nicholas Kay, REGIONAL PRODUCTION MANAGER, SCRAP DROP ENGINEER P6500 OB PN [address] documented in this encounter Plan of Treatment Not on filedocumented as of this encounter Visit Diagnoses Not on filedocumented in this encounter Care Teams Economic Development Coordinator Relationship Specialty Start Date End Date Jie Farah DO PCP - General Family Practice 04/05/16 [address] [place] [address] documented as of this encounter
--- OUTSIDE RECORDS SUMMARY | 2021-10-19 13:55 | XMS_ITS | Encounter Summary ---
:1985 Author Organization [facility] Address [address] [place] [address] Care Team Providers Name Role Phone Denisse Sue DO Primary Care Provider Reason for Visit Reason Comments HEADACHE,MIGRAINE Encounter Details Date Type Department Care Team Description 06/01/2015 Office Visit [facility] [address] Denisse Sue, Chronic migraine Family Medicine [address] without aura without [address] status migrainosus, [address] [place], [place] [address] (Primary Dx) [address] [phone] Social History Tobacco Use Types Packs/Day Years [...] Where can you learn more? Go to Sharewave/Childcare Bridge and enter U690 in the search box. Current as of: April 15, 2014 Content Version: 107 ?? [id number] Tuizzi, Berry White. documented in this encounter Progress Notes Denisse [...] school\work performance, speech difficulties, vomiting in the outpatient case manager. Home treatment has included Excedrin, ibuprofen, Imitrex [...] migrainosus documented in this encounter Care Teams Compensation Analyst Relationship Specialty Start Date End Date Denisse Sue DO PCP - General 05/12/13 04/04/16 [address] [place] [address] documented as of this encounter
--- OUTSIDE RECORDS SUMMARY | 2021-10-19 13:55 | XMS_ITS | Encounter Summary ---
:1985 Author Organization [facility] Address [address] [place] [address] Care Team Providers Name Role Phone Denisse Sue DO Primary Care Provider Reason for Visit Reason Comments Annual Exam Encounter Details Date Type Department Care Team Description 03/02/2015 [facility] Nicholas Kay Preventativ e health care (Primary Dx); Obstetrics/Gynecolog DON GRANT Pap smear, as part of routine gynecologi bre examination; y [address] Screen for STD (sexually tra nsmitted disease); [address] Counseling for control, oral contr aceptives [facility] [address] [place] [address] [place], [place] [phone] [address] Social History Tobacco Use Types Packs/Day Years Used Date Smoking Tobacco: Never Assessed Sex Assigned at Date Recorded Not on file documented as of this encounter Last Filed Vital Signs Vital Sign Reading Time Taken Comments Blood Pressure 109/73 03/02/2015 8:28 AM DISABILITY AIDE Pulse 65 03/02/2015 8:28 AM DISABILITY AIDE Temperature - - Respiratory Rate - - Oxygen Saturation - - Inhaled Oxygen Concentration - - Weight 55.4 kg (122 lb 1.6 oz) 03/02/2015 8:28 AM DISABILITY AIDE Height 168.3 cm (5' 6.25) 03/02/2015 8:28 AM DISABILITY AIDE Body Mass Index 19.56 03/02/2015 8:28 AM DISABILITY AIDE documented in this encounter Patient Instructions Patient [...] infection identified your [facility] . Your control pills have been refilled [...] for evaluation. I am always available through [facility] or by calling the nurse triage line at [phone]. Have a great 2016 Kimberley! BILITY AIDE documented in this encounter Progress Notes Amy Romero RN - 03/09/2015 8:57 AM DISABILITY AIDE Quick Note: Dear Simona, I am writing [...] call Cervical Cancer Screening and Management Team [phone] Sincerely, Amy Romero RN on behalf of Dr. Airam Obando, Chief Librarian Branch [facility]al[facility] Dang Cervical Cancer Screening and Management BILITY AIDE Nicholas Kay APRN, CNP - 03/02/2015 9:07 [...] Past Surgical History Procedure Laterality Date ??? [place] tooth extraction ??? Foot surgery 2012 Family [...] part of routine gynecological examination Z12.4 V76.2 TN OBTAINING SCREEN PAP SMEAR Pap Test Order [...] Order Specific Question: Ordering Provider? (, Miladys, METERMAN, or PA Only) Answer: NICHOLAS KAY [[id number]] ??? Pap Test Order Order Specific Question: LMP (Date) Answer: 02/26/15 Order Specific Question: Abnormal Bleeding? Answer: No Order Specific Question: Menstrual Status Answer: None Apply Order Specific Question: Current form of therapy Answer: Hormone Therapy Order Specific Question: Hx of abnormal Pap test/NETWORK OPERATIONS PROJECT MANAGER cancer outside of [facility]? Answer: No Order Specific Question: Pap Source Answer: Cervical Order Specific Question: Pap test type Answer: Screening Order Specific Question: HPV Testing Answer: HPV Regardless of Pap Results (Screening age 30+) Order Specific Question: Ordering Provider? (Miladys [place]mon[place], METERMAN, or PA Only) Answer: NICHOLAS KAY [[id number]] ??? HPV with 16 18 Genotyping ??? TN OBTAINING SCREEN PAP SMEAR ??? norethindrone-ethinyl estradiol [...] weeks, [facility] A culture for gonorrhea and Chlamydia was collected. You will be called with these results indicate infection and treatment, otherwise if no infection identified your [facility] . Your control pills have been [...] for evaluation. I am always available through [facility] or by calling the nurse triage line at [phone]. Have a great 2016 Kimberley! Current Control: Oral contraceptives BILITY AIDE documented in this encounter Miscellaneous Notes Miscellaneous [...] test results, callCervical Cancer Screening and Management [phone],Leslie B Carpenter, RN on behalf ofDr. Airam Obando, Medical DirectorRidgeview Medical Center Cervical Cancer Screening and Management BILITY AIDE Miscellaneous - 04/03/2016 11:05 PM CSTNotes Recorded [...] test results, callCervical Cancer Screening and Management [phone],Amy Romero, RN on behalf ofDr. Airam Obando, Medical DirectorPark Laurence Cervical Cancer Screening and Management BILITY AIDE documented in this encounter Plan of Treatment Not on filedocumented as of this encounter Procedures Procedure Name Priority Date/Time Associated Diagnosis Comme nts CHLAMYDIA & GC (14 Routine 03/02/2015 9:08 AM Screen for STD R esults for this YEARS AND OLDER) DISABILITY AIDE (sexually transmitted pr ocedure are in disease) the results section. PAP TEST ORDER Routine 03/02/2015 8:59 AM Pap smear, as part o f Results for this DISABILITY AIDE routine gynecological proced ure are in examination the results section. HPV WITH 16 18 Routine 03/02/2015 8:59 AM Results for this GENOTYPING, DISABILITY AIDE procedure are i n CERVICAL/ENDOCERVIC the resu lts AL section. ANATOMICAL PATH Routine 03/02/2015 8:59 AM Result s for this LIQUID BASED DISABILITY AIDE procedure are i n the results section. documented in this encounter Results Chlamydia & GC (03/02/2015 9:08 AM DISABILITY AIDE) [facility] gist Method Time Signature Chlamydia Negative Negative HP CONVERSION Trachomatis STD Comment: Test Performed by Applications Engineering Manager Mediated Amplification CLIA Number [id number] N. gonorrhoeae STD Negative Negative HP CONVERSI ON Comment: Test Performed by Applications Engineering Manager Mediated Amplification Performed at [facility], [address] ??[address] CLIA Number [id number] Source STD Cervix HP CONVERSION Comment: CLIA Number [id number] Specimen Anatomical Collection Method Collection Time Receive d Time (Source) Location / / Volume Laterality 03/02/2015 9:08 AM 6 3:29 DISABILITY AIDE PM DISABILITY AIDE Nicholas A Rahul GRANT, PROJECTION ENGINEER LAB_1 Performing Organization Address City/State/ZIP Code Phon e Number HP CONVERSION Pap Smear (03/02/2015 8:59 AM DISABILITY AIDE) Specimen (Source) Anatomical Collection Method Collection Time Re ceived Time Location / / Volume Laterality 03/02/2015 8:59 AM DISABILITY AIDE Narrative HP CONVERSION - 03/06/2015 5:14 PM DISABILITY AIDE FINAL GYNECOLOGICAL CYTOLOGY REPORT Pathology #: [id number] ?Date Obtained: 03/02/2015 ? Date Received: 03/03/2015 [...] occur. ? End of Report Performed at [facility], [address] [place] [address] Transcriptions 04/03/2016 11:05 PM CSTNotes Recorded by [...] results, call Cervical Cancer Screening and Management [phone],Amy Romero RN on behalf ofDr. Airam Obando, Chief Librarian Branch [facility] Cervical Cancer Screening and Management Nicholas Kay APRN, PROJECTION ENGINEER LAB_1 Performing Organization Address City/State/ZIP Code Phon e Number HP CONVERSION HPV with 16 18 Genotyping (03/02/2015 8:59 AM DISABILITY AIDE) [facility] Method Time Signature HPV High Risk Not [...] and its pe rformance characteristics determined by [facility] [employer] ([employer] [facility]. It has not been cleared or approved by [facility]. The laboratory is regulated under CLIA as qualified to perform high-complexity testing. This test is used for clinical purposes. It should not be regarded as investigational or fo r research. Specimen Anatomical Collection Method Collection Time Receive d Time (Source) Location / / Volume Laterality 03/02/2015 8:59 AM 6 8:59 DISABILITY AIDE AM DISABILITY AIDE Narrative HP CONVERSION - 03/08/2015 2:17 PM DISABILITY AIDE Performed at [facility], [facility] [place] [address] CLIA number [id number] Transcriptions 04/03/2016 11:05 PM CSTNotes Recorded by [...] results, call Cervical Cancer Screening and Management [phone] Contreras RN on behalf ofDr. Airam Obando, Chief Librarian Branch Ros[facility] Bradyllet Cervical Cancer Screening and Management Nicholas Kay APRN, DON LAB_1 Performing Organization Address [facility] Phon e Number HP CONVERSION Pap Test Order (03/02/2015 8:59 AM DISABILITY AIDE) [facility] Method Time Signature Pap Smear Collected HP CONVERSION Monolayer tracking test Specimen Anatomical Collection Method Collection Time Receive d Time (Source) Location / / Volume Laterality 03/02/2015 8:59 AM 6 8:49 DISABILITY AIDE AM DISABILITY AIDE Nicholas Kay APRN, DON LAB_1 Performing Organization Address [facility] Phon e Number HP CONVERSION documented [...] contraceptives documented in this encounter Care Teams Chancery Clerk Relationship Specialty Start Date End Date Denisse Sue DO PCP - General 05/12/13 [address] [place] [address] documented as of this encounter
--- OUTSIDE RECORDS SUMMARY | 2021-10-19 13:55 | XMS_ITS | Encounter Summary ---
:1985 Author Organization [facility] Address [address] [place] [address] Care Team Providers Name Role Phone MireilleJie jones Shweta ZARAGOZA Primary Care Provider Reason for Visit Reason Comments Refill [place] Encounter Details Date Type Department Care Team Description 02/12/2017 [facility]ill [facility] Nicholas Kay A PRN, RESIDENT SERVICES DIRECTOR Refill ([place]) Obstetrics/Gynecolog y [address] [facility] [address] [place] [address] [place], [place] [address] (Wo rk) Social History Tobacco Use Types [...] Provider: NICHOLAS KAY Ordering User: RUIZ RENEE ENGER FLAGMAN documented in this encounter Plan of Treatment Not on filedocumented as of this encounter Visit Diagnoses Not on filedocumented in this encounter Care Teams Quarry Boss Relationship Specialty Start Date End Date Jie Farah DO PCP - General Family Practice 04/05/16 [address] [place] [address] documented as of this encounter
--- OUTSIDE RECORDS SUMMARY | 2021-10-19 13:55 | XMS_ITS | Encounter Summary ---
:1985 Author Organization [facility] Address [address] [place] [address] Care Team Providers Name Role Phone Md MINA Leigh Primary Care Provider Reason for Visit Reason Comments RESULTS, TEST Encounter Details Date Type Department Care Team Description 04/07/2013 Office Visit [facility] [address] Loc alized superficial Podiatric MedSurg M, DPM swelling, mass, or [address] p (Primary Dx) [place] [address] [phone] (Wo rk) Social History Tobacco Use Types [...] 04/14/1358 Note Time: 04/07/13 1032 Status: Signed Steam Press Tender: Elizabeth Hurtado DPM (Physician) NAME: ODESSA CHE MR#: [id number] CSN: [id number] AUTHENTICATING CLINICIAN: Elizabeth Hurtado DPM CONFIRM #: [id number] LOC: 439 CLINIC PROGRESS NOTE DATE OF VISIT: 04/07/2013 : 1985 SUBJECTIVE: The patient is a 27-year-old female seen today to discuss MRI results of her left foot. She has a palpable soft tissue mass that is somewhat bothersome when she runs where her shoe rubs. It is not painful for her currently. MEDICATIONS: Reviewed and updated in [employer]. ALLERGIES: No known drug allergies. REVIEW OF [...] schedule procedure at her convenience with the rn outpatient surgery. She will need a preoperative history and physical 1 month prior to procedure. SMS:MEDQ C: CONFIRM #: [id number] ING AND MOBILITY TECHNOLOGIST documented in this encounter Plan of Treatment Not on filedocumented as of this encounter Visit Diagnoses Diagnosis Localized superficial swelling, mass, or lump - Primary documented in this encounter Care Teams Milk Tester Relationship Specialty Start Date End Date Md Lu, PCP - General 05/26/10 05/11/13 [place] [address] documented as of this encounter
--- OUTSIDE RECORDS SUMMARY | 2021-10-19 13:55 | XMS_ITS | Encounter Summary ---
:1985 Author Organization [facility] Address [address] [place] [address] Care Team Providers Name Role Phone Jie Farah DO Primary Care Provider Reason for Visit Reason Comments Refill Encounter Details Date Type Department Care Team Description 03/12/2017 [facility] Nanette Kay A PRN, FUR TRAPPER Refill Obstetrics/Gynecolog y [address] [facility] [address] [place] [address] [place], [place] [address] (Wo rk) Social History Tobacco Use Types [...] Department Center 04/09/2017 3:30 PM Nanette Kay, SITE AUDITOR, FUR TRAPPER [facility] OBG PN [facility] LING AGENT Jie Sheehan RN - 03/12/2017 11:49 AM [...] 02/13/17 Prescribing provider- rice No future appointments. LING AGENT documented in this encounter Plan of Treatment Not on filedocumented as of this encounter Visit Diagnoses Not on filedocumented in this encounter Care Teams Fork Lift Technician Relationship Specialty Start Date End Date Jie Farah DO PCP - General Family Practice 04/05/16 [address] [place] [address] documented as of this encounter
--- OUTSIDE RECORDS SUMMARY | 2021-10-19 13:55 | XMS_ITS | Encounter Summary ---
:1985 Author Organization [facility] Address [address] [place] [address] Care Team Providers Name Role Phone Md MINA Leigh Primary Care Provider Reason for Visit Reason Comments MASS Encounter Details Date Type Department Care Team Description 03/31/2013 Initial Consult [facility] [address] Left ankle pain (Primary Dx); Podiatric MedSurrossy Gilliam DPM Localized superficial swelling, mass, or lump 39[address] [facility] [address] [facility] [place] [address] [phone] Social History Tobacco Use Types Packs/Day Years [...] 1605 Note Time: 03/31/13 1435 Status: Signed Anodic Operator: Elizabeth Hurtado DPM (Physician) NAME: ODESSA CHE MR#: [id number] CSN: [id number] AUTHENTICATING CLINICIAN: Elizabeth Hurtado DPM CONFIRM #: [id number] LOC: 439 CLINIC PROGRESS NOTE DATE OF [...] hyperhidrosis. CURRENT MEDICATIONS: Reviewed and updated in [employer]. ALLERGIES: No known drug allergies. FAMILY HISTORY: [...] to discuss results. SMS:MEDQ C: CONFIRM #: [id number] ALOMETRIC TRACER documented in this encounter Plan of Treatment Not on filedocumented as of this encounter Visit Diagnoses Diagnosis Left ankle pain - Primary Pain in joint, ankle and foot Localized superficial swelling, mass, or lump documented in this encounter Care Teams Quality Intern Relationship Specialty Start Date End Date Md Legih MD PCP - General 05/26/10 05/11/13 [place] [address] documented as of this encounter
--- OUTSIDE RECORDS SUMMARY | 2021-10-19 13:55 | XMS_ITS | Encounter Summary ---
:1985 Author Organization [facility] Address [address] [place] [address] Care Team Providers Name Role Phone Denisse Sue Primary Care Provider Reason for Visit Reason Comments Post-Op Check Encounter Details Date Type Department Care Team Description 05/31/2013 Office Visit [facility] 3900 Nurse, P3900 Pod Local ized superficial Podiatric MedSurg swelling, mass, or lump [address] (Primary Dx) [place] [address] Social History Tobacco Use Types Packs/Day Years [...] number to call with any concerns is [phone] documented in this encounter Progress Notes Priscilla [...] Primary documented in this encounter Care Teams Mash Tub Cooker Relationship Specialty Start Date End Date Denisse Sue DO PCP - General 05/12/13 04/04/16 [address] [place] [address] documented as of this encounter
--- OUTSIDE RECORDS SUMMARY | 2021-10-19 13:55 | XMS_ITS | Encounter Summary ---
:1985 Author Organization [employer] [facility] Address [address] [place] [address] Care Team Providers Name Role Phone Jie Farah DO Primary Care Provider Reason for Visit Reason Comments MEDICATION CHECK Refill Encounter Details Date Type Department Care Team Description 02/15/[address] [facility] [address] Jie Farah, [place] graine without aura Family Medicine DO and without status [address] rainosus, not [address] intractable (Primary [place], [place] Dx ) [phone] (Wo rk) Social History Tobacco Use Types [...] Comments Blood Pressure 97/57 02/15/2019 9:07 AM OSHA INSPECTOR Pulse 61 02/15/2019 9:07 AM OSHA INSPECTOR Temperature - - Respiratory Rate - - Oxygen Saturation - - Inhaled Oxygen Concentration - - Weight 54.7 kg (120 lb 9.6 oz) 02/15/2019 9:07 AM OSHA INSPECTOR Height - - Body Mass Index 19.32 04/09/2017 3:19 PM OSHA INSPECTOR documented in this encounter Progress Notes Jie [...] or worsen referral to the headache Clinic. INSPECTOR documented in this encounter Plan of Treatment Not on filedocumented as of this encounter Visit Diagnoses Diagnosis Migraine without aura and without status migrainosus, not intractable - Primary Migraine without aura, without mention o f intractable migraine without mention of status migrainosus documented in this encounter Care Teams Set Off Blocker Relationship Specialty Start Date End Date Jie Farah DO PCP - General Family Practice 04/05/16 [address] [place] [address] documented as of this encounter
--- OUTSIDE RECORDS SUMMARY | 2021-10-19 13:55 | XMS_ITS | Encounter Summary ---
:1985 Author [facility] Address [address] [place] [address] Care Team Providers Name Role Phone Jie Farah DO Primary Care Provider Reason for Visit Reason Onset Date Comments Refill 06/19/2016 Encounter Details Date Type Department Care Team Description 06/19/2016 Refill [facility] [address] Family Denisse Sue, DO Refill Medicine [address] [place] [address] [place], [place] [address] [phone] Social History Tobacco Use Types Packs/Day Years [...] request Reason: RN Reviewed--Need signed order in [facility] for pended medication. Next Steps: Review [...] MG tablet [Denisse Sue DO] Preferred pharmacy: [address] Comment: Good Morning, I saw Dr. Farah earlier this month regarding a refill on this prescription. I am looking to have it refilled at the pharmacy. Could you please submit the new prescription? Thank you. documented in this encounter Plan of Treatment Not on filedocumented as of this encounter Visit Diagnoses Not on filedocumented in this encounter Care Teams Soa Architect Relationship Specialty Start Date End Date Jie Farah DO PCP - General Family Practice 04/05/[address] [place] [address] documented as of this encounter
--- OUTSIDE RECORDS SUMMARY | 2021-10-19 13:55 | XMS_ITS | Encounter Summary ---
:1985 Author Organization [email or web address] Address [address] [place] [address] Care Team Providers Name Role Phone Denisse Sue Primary Care Provider Reason for Visit Reason Comments Post-Op Check Encounter Details Date Type Department Care Team Description 06/14/2013 Office Visit [facility] 3900 Nurse, P3900 Pod Local ized superficial Podiatric MedSurg swelling, mass, or lump [address] (Primary Dx) [place] [address] Social History Tobacco Use Types Packs/Day Years [...] number to call with any concerns is [phone] documented in this encounter Progress Notes Priscilla [...] Primary documented in this encounter Care Teams Mutual Fund Manager Relationship Specialty Start Date End Date Denisse Sue DO PCP - General 05/12/13 04/04/16 [address] [place], [place] [address] documented as of this encounter
--- OUTSIDE RECORDS SUMMARY | 2021-10-19 13:55 | XMS_ITS | Encounter Summary ---
:1985 Author Organization [facility] [employer] [employer] Address [address] [place] [address] Care Team Providers Name Role Phone Denisse Sue DO Primary Care Provider Reason for Visit Reason Onset Date Comments Refill 12/26/2015 June Encounter Details Date Type Department Care Team Description 12/26/2015 [facility]ill [facility] Nicholas Kay, Derick PRN, DRESS FINISHER Refill () Obstetrics/Gynecolog y [address] [place] [address] [place], [place] [phone] (Wo rk) Social History Tobacco Use Types [...] Department Center 03/04/2016 9:30 AM Nicholas Kay HEALTH INFORMATION ADMINISTRATOR, DRESS FINISHER HVC OBG PN [facility] Requested Prescriptions Signed [...] tablet [Nicholas Kay APRN, CNP] Preferred pharmacy: [address] Comment: Hi - I have an [...] on filedocumented in this encounter Care Teams Carburetor Repairer Relationship Specialty Start Date End Date Denisse Sue DO PCP - General 05/12/13 04/04/16 [address] [place] [address] documented as of this encounter
--- OUTSIDE RECORDS SUMMARY | 2021-10-19 13:55 | XMS_ITS | Encounter Summary ---
:1985 Author Organization [employer] Address [address] [place] [address] Care Team Providers Name Role Phone Jie Mckeon DO Primary Care Provider Reason for Visit Reason Comments Refill SUMAtriptan (IMITREX) 100 MG tablet [Pharmacy Med Name: SUMATRIPTAN SUCC 100 MG TABLET] Encounter Details Date Type Department Care Team Description 07/12/2017 Refill [facility] 38[address] Jie Mckeon, Re fill (SUMAtriptan Family Medicine DO (IMITREX) 100 MG tablet [address] [place] [address] [Ph armacy Med Name: Bl[address]. [address] SUMATRIPTAN SUCC 100 MG [place], [place]]) [id number] (Wo rk) Social History Tobacco Use Types [...] 74 mm Hg on 04/09/2017 Powered by [email or web address], Reference: [id number], 07/12/2017 6:02:29 PM CDT, Pool: [id number] FM REFILL ([id number]) Electronically signed by Interface, Out SureEventifierriAnacor Pharmaceutical Prov Query at 07/15/2017 3:25 PM CDT documented in this encounter Plan of Treatment Not on filedocumented as of this encounter Visit Diagnoses Not on filedocumented in this encounter Care Teams Knife Finisher Relationship Specialty Start Date End Date Jie Mckeon DO PCP - General Family Practice 04/05/16 [address] [place] [address] documented as of this encounter
--- OUTSIDE RECORDS SUMMARY | 2021-10-19 13:56 | XMS_ITS | Encounter Summary ---
:1985 Author Organization [facility] Address [address] [place] [address] Care Team Providers Name Role Phone Md MINA Leigh Primary Care Provider Reason for Visit Reason Comments Annual Exam Encounter Details Date Type Department Care Team Description 07/30/2012 Office Visit [facility] [address] Nicholas Kay, Routine general medical examination at a health care facility (Primary Dx); Obstetrics/Gynecolog y COLLEGE HIRE, DONOR RELATIONS MANAGER Screening for malignant neoplasm of the cervix; [address] Special screening examination for unspec ified chlamydial disease; [address] [facility] 5th Floor Screening for iron deficiency anemia; [place], [place] Sc reening for lipoid disorders; [phone] Need for Tdap vaccination; [phone] (Wo rk) Special screening examination for other [...] AM CDT Thank you for enrolling in [employer]. Please follow the instructions below to securely access your online medical record. [employer] allows you to send messages to your doctor, view your test results, renewyour prescriptions, schedule appointments, and more. How Do I Sign Up? 1. In your Internet browser, go to: [email or web address] 2. Click on the Sign Up Now link in the Sign In box. You will see the New Member Sign Up page. 3. Enter your [employer] Access Code exactly as it appears below. You will not need to use this code after you???ve completed the sign-up process. If you do not sign up before the expiration date, you must request a new code. [employer] Access Code: [email or web address] Expires: 08/29/2012 11:05 AM 4. Enter your Social Security Number (xxx-[id number]) and Date of (mm/dd/yyyy) as indicated and click Submit. You will be taken to the next sign- up page. 5. Create a [employer] ID. This will be your [employer] login ID and cannot be changed, so think of one that is secure and easy to remember. 6. Create a [employer] password. You can change your password at any time. 7. Enter your Password Reset Question and Answer. This can be used at a later time if you forget your password. 8. Enter your e-mail address. You will receive e-mail notification when new information is availablein [employer]. 9. Click Sign Up. You can now view your medical record. Additional Information If you have questions, you can call [phone] to talk to our [employer] staff. Remember, [employer] is NOT to be used for urgent [...] they are available. Please contact me at [phone] if questions. documented in this encounter Progress [...] Past Surgical History Procedure Laterality Date ??? [place] tooth extraction Family History: Family History Problem [...] Order Specific Question: Ordering Provider? (, Miladys, IMPLEMENTATION MANAGER, or PA Only) Answer: NICHOLAS KAY [[id number]] ??? Tdap (BOOSTRIX) ??? Pap Smear Screening [PAPL] Order Specific Question: Ordering Provider? (Miladys Almonte, IMPLEMENTATION MANAGER, or PA Only) Answer: NICHOLAS KAY [[id number]] Order Specific Question: Is the required paper requisition completed? Answer: Yes ??? Complete Blood Count - No Diff [ABC] Standing Status: Future Number of Occurrences: 1 Standing Expiration Date: 07/30/2013 Order Specific Question: Ordering Provider? (Miladys Alomnte, IMPLEMENTATION MANAGER, or PA Only) Answer: NICHOLAS KAY [[id number]] ??? Ferritin [ISACC] Standing Status: Future Number of Occurrences: 1 Standing Expiration Date: 07/30/2013 Order Specific Question: Ordering Provider? (Miladys Almonte, IMPLEMENTATION MANAGER, or PA Only) Answer: NICHOLAS KAY [[id number]] ? ? Cholesterol, Total & HDL [CHS] Standing Status: Future Number of Occurrences: 1 Standing Expiration Date: 07/30/2013 Order Specific Question: Ordering Provider? (Miladys Almonte, IMPLEMENTATION MANAGER, or PA Only) Answer: NICHOLAS KAY [[id number]] ??? HIV Antibody [HIV] Standing Status: Future Number of Occurrences: 1 Standing Expiration Date: 07/30/2013 Order Specific Question: Ordering Provider? (Miladys Almonte, IMPLEMENTATION MANAGER, or PA Only) Answer: NICHOLAS KAY [[id number]] ??? Treponemal Antibody Standing Status: Future Number of Occurrences: 1 Standing Expiration Date: 07/30/2013 Order Specific Question: Ordering Provider? (Miladys Almonte, IMPLEMENTATION MANAGER, or PA Only) Answer: NICHOLAS KAY [[id number]] ??? Hepatitis Bs Antigen [HBAG] Standing Status: Future Number of Occurrences: 1 Standing Expiration Date: 07/30/2013 Order Specific Question: Ordering Provider? (, Res, IMPLEMENTATION MANAGER, or PA Only) Answer: NICHOLAS KAY [[id number]] ??? Hepatitis C Antibody [HCAB] Standing Status: Future Number of Occurrences: 1 Standing Expiration Date: 07/30/2013 Order Specific Question: Ordering Provider? (, Res, IMPLEMENTATION MANAGER, or PA Only) Answer: NICHOLAS KAY [[id number]] ??? Urinalysis Routine Hold Culture (URH) Standing Status: Future Number of Occurrences: 1 Standing Expiration Date: 07/30/2013 Order Specific Question: Ordering Provider? (, Res, IMPLEMENTATION MANAGER, or PA Only) Answer: NICHOLAS KAY [[id number]] Order Specific Question: Urine Collection Type Answer: Urine:clean catch ??? Pap Smear Patient Instructions Thank you for enrolling in [employer]. Please follow the instructions below to securely access your online medical record. [employer] allows you to send messages to your doctor, view your test results, renewyour prescriptions, schedule appointments, and more. How Do I Sign Up? 1. In your Internet browser, go to: [email or web address] 2. Click on the Sign Up Now link in the Sign In box. You will see the New Member Sign Up page. 3. Enter your [employer] Access Code exactly as it appears below. You will not need to use this code after you???ve completed the sign-up process. If you do not sign up before the expiration date, you must request a new code. [employer] Access Code: [email or web address] Expires: 08/29/2012 11:05 AM 4. Enter your Social Security Number (xxx-xx-xxxx) and Date of (mm/dd/yyyy) as indicated and click Submit. You will be taken to the next sign- up page. 5. Create a [employer] ID. This will be your [employer] login ID and cannot be changed, so think of one that is secure and easy to remember. 6. Create a [employer] password. You can change your password at any time. 7. Enter your Password Reset Question and Answer. This can be used at a later time if you forget your password. 8. Enter your e-mail address. You will receive e-mail notification when new information is availablein [employer]. 9. Click Sign Up. You can now view your medical record. Additional Information If you have questions, you can call [phone] to talk to our [employer] staff. Remember, [employer] is NOT to be used for urgent [...] they are available. Please contact me at [phone] if questions. Current Control:N/A documented in this [...] Component Value Ref [facility] Method Time Signature Source Endocervical [...] Kay APRN, CNP LAB_1 Performing Organization Address [facility] Phon e Number HP CONVERSION Pap Smear (07/30/2012 12:02 PM CDT) Specimen (Source) Anatomical Collection Method Collection Time Re ceived Time Location / / Volume Laterality 07/30/2012 12:02 PM CDT Narrative HP CONVERSION - 08/04/2012 3:57 PM CDT FINAL GYNECOLOGICAL CYTOLOGY REPORT Pathology #: [id number] ?Date Obtained: 07/30/2012 ? Date Received: 07/31/2012 [...] Kay APRN, CNP LAB_1 Performing Organization Address [facility] Phon e Number HP CONVERSION Pap Smear Screening (07/30/2012 12:02 PM CDT) P athologist Signature PAP Routine Collected HP CONVERSION Specimen Anatomical Collection Method Collection Time Receive d Time (Source) Location / / Volume Laterality 07/30/2012 12:02 07/31/2012 5:33 PM CDT AM CDT Nicholas Kay APRN, CNP LAB_1 Performing Organization Address [facility] Phon e Number HP CONVERSION documented in this encounter Visit Diagnoses Diagnosis Routine general medical examination at a health care facility - Primary Screening for malignant neoplasm of the cervix Special screening examination for unspec ified chlamydial disease Screening for iron deficiency anemia Screening for lipoid disorders Need for Tdap vaccination Need for prophylactic vaccination with c ombined iodxrrgidz-hgfdnnu-dwgpvcevh (DTP) vaccine Special screening examination for other specified viral diseases Bloating Flatulence, eructation, and gas pain Urinary urgency Urgency of urination documented in this encounter Care Teams Gelatin Dynamite Packing Operator Relationship Specialty Start Date End Date Md Leigh MD PCP - General 05/26/10 05/11/13 [place] [address] documented as of this encounter
--- OUTSIDE RECORDS SUMMARY | 2021-10-19 13:56 | XMS_ITS | Encounter Summary ---
:1985 Author [facility] Address [address] [place] [address] Care Team Providers Name Role Phone Md MINA Leigh Primary Care Provider Encounter Details Date Type Department Care Team Description 06/20/2010 Office Visit [facility] [address] Nanette Kay APRN, CNP Obstetrics/Gynecolog y [address] PSYCHIATRIC 5th [place] [address] [phone] Social History Tobacco Use Types Packs/Day Years [...] filedocumented in this encounter Care Teams Senior Training And Development Rep Relationship Specialty Start Date End Date Md Leigh MD PCP - General 05/26/10 05/11/13 [place] [address] documented as of this encounter
--- OUTSIDE RECORDS SUMMARY | 2021-10-19 13:56 | XMS_ITS | Encounter Summary ---
:1985 Author Organization [facility] Address [address] [place] [address] Care Team Providers Name Role Phone Md MINA Leigh Primary Care Provider Reason for Visit Reason Comments Follow-up Encounter Details Date Type Department Care Team Description 09/10/2011 Office Visit [facility] Angelica Quiroz of [place] MD Elliott patella (Primary Dx) [address] [place] [address] [place], [place] [phone] (Wo rk) Social History Tobacco Use Types Packs/Day Years Used Date Smoking Tobacco: Never Assessed Sex Assigned at Date Recorded Not on file documented as of this encounter Progress Notes Angelica Thomas MD - 09/10/2011 3:42 PM CDT Progress Notes signed by Angelica Thomas MD at 09/12/11 7759 Author: Angelica Thomas MD Service: (none) Author Type: Physician Filed: 09/12/111718 Note Time: 09/10/11 1542 Status: Signed Network Management Specialist: Angelica Thomas MD (Physician) NAME: ODESSA TELLEZ VISIT: [id number] DICTATING CLINICIAN: ANGELICA THOMAS MD JOB: [id number] Med JOB: [id number] LOC: 3711 CLINIC PROGRESS NOTE DATE OF [...] Primary documented in this encounter Care Teams Livestock Buyer Relationship Specialty Start Date End Date Md Leigh MD PCP - General 05/26/10 05/11/13 [place] [address] documented as of this encounter
--- OUTSIDE RECORDS SUMMARY | 2021-10-19 13:56 | XMS_ITS | Encounter Summary ---
:1985 Author [facility] Address [address] [place] [address] Care Team Providers Name Role Phone Md MINA Leigh Primary Care Provider Reason for Visit Reason Comments Follow-up Encounter Details Date Type Department Care Team Description 09/24/2011 Office Visit [facility] Angelica Thomas (Primary CENTER MD Elliott Dx) [address] [place] [address] [place], [place] [phone] (Wo rk) Social History Tobacco Use Types Packs/Day Years Used Date Smoking Tobacco: Never Assessed Sex Assigned at Date Recorded Not on file documented as of this encounter Progress Notes Angelica Thomas MD - 09/24/2011 4:45 PM CDT Progress Notes signed by Angelica Thomas MD at 09/30/11 0925 Author: Angelica Thomas MD Service: (none) Author Type: Physician Filed: 09/30/11924 Note Time: 09/24/11 5275 Status: Signed Beauty Operator Apprentice: Angelica Thomas MD (Physician) NAME: ODESSA CHE VISIT: [id number] DICTATING CLINICIAN: ANGELICA THOMAS MD JOB: [id number] Med JOB: [id number] LOC: 3711 CLINIC PROGRESS NOTE DATE OF [...] patella documented in this encounter Care Teams Test Case Developer Relationship Specialty Start Date End Date Md Leigh MD PCP - General 05/26/10 05/11/13 [place] [address] documented as of this encounter
--- OUTSIDE RECORDS SUMMARY | 2021-10-19 13:56 | XMS_ITS | Encounter Summary ---
:1985 Author Organization [facility] Address [address] [place] [address] Care Team Providers Name Role Phone Md MINA Leigh Primary Care Provider Reason for Visit Reason Comments EXCESSIVE SWEATING Encounter Details Date Type Department Care Team Description 01/23/2011 Office Visit [facility] Nicholas Weaver, Hyperhidrosis; [address] Robb APRN, CNP [place], [place] [id number] [place] [address] [address] [place] [address] (Wo rk) Social History Tobacco Use Types Packs/Day Years Used Date Smoking Tobacco: Never Assessed Sex Assigned at Date Recorded Not on file documented as of this encounter Last Filed Vital Signs Vital Sign Reading Time Taken Comments Blood Pressure 92/50 01/23/2011 3:22 PM CYCLE CONSULTANT Pulse 68 01/23/2011 3:22 PM CYCLE CONSULTANT Temperature 36.7 ??C (98.1 ??F) 01/23/2011 3:22 PM CYCLE CONSULTANT Respiratory Rate - - Oxygen Saturation - - Inhaled Oxygen Concentration - - Weight 50.8 kg (112 lb) 01/23/2011 3:22 PM CYCLE CONSULTANT Height 165.1 cm (5' 5) 01/23/2011 3:22 PM CYCLE CONSULTANT Body Mass Index 18.64 01/23/2011 3:22 PM CYCLE CONSULTANT documented in this encounter Patient Instructions Patient InstructionsSuNicholas rincon APRN, SUPERVISOR AREA - 01/23/2011 3:35 PM CYCLE CONSULTANT Lab letter will arrive in 1-2 weeks. Aluminum Chloride as needed for sweating. E CONSULTANT documented in this encounter Progress Notes Nicholas Weaver APRN, CNP - 01/23/2011 4:30 PM CYCLE CONSULTANT Addended by: NICHOLAS WEAVER on: 01/23/2011 Modules [...] unspecified documented in this encounter Care Teams Metal Miner Blasting Relationship Specialty Start Date End Date Md Leigh MD PCP - General 05/26/10 05/11/13 [place] [address] documented as of this encounter
--- OUTSIDE RECORDS SUMMARY | 2021-10-19 13:56 | XMS_ITS | Encounter Summary ---
:1985 Author [facility] Address [address] [place] [address] Care Team Providers Name Role Phone Md MINA Leigh Primary Care Provider Reason for Visit Reason Comments Lab Draw Encounter Details Date Type Department Care Team Description 02/19/2012 Telephone [facility] Consuelo Lopez MD Lab Draw [address] [facility] [address] [place] [address] [place], [place] [address] (Wo rk) Social History Tobacco Use Types [...] by Nanette Bravo N.P. who has left [facility]. Also requested that pt call us back and let us know if plans on getting lab done. documented in this encounter Plan of Treatment Not on filedocumented as of this encounter Visit Diagnoses Not on filedocumented in this encounter Care Teams Industrial Spraypainter Relationship Specialty Start Date End Date Md Leigh MD PCP - General 05/26/10 05/11/13 [place] [address] documented as of this encounter
--- OUTSIDE RECORDS SUMMARY | 2021-10-19 13:56 | XMS_ITS | Encounter Summary ---
:1985 Author Organization [facility] Address [address] [place] [address] Care Team Providers Name Role Phone Md MINA Leigh Primary Care Provider Encounter Details Date Type Department Care Team Description 06/20/2010 PN Conversion Only GAME PRODUCER [address] Nicholas Rodríguez APRN, [address] [facility] [address] [facility] 5th Floor [address] [place], [place] [address] (Wo rk) Social History Tobacco Use Types [...] Transmitted Disease Probe (06/20/2010 3:38 PM CDT) [facility] Method Time Signature Sexually SEE TEXT HP CONVERSION Transmitted Disease Probe Comment: STDPR Sexually Transmitted Disease DNA Probe ? ORDERED BY: NICHOLAS KAY SOURCE: Endocervical for molecular testi ng COLLECTED: ??06/20/10 15:38 ? PLATED: ? 06/20/10 15:38 Chlamydia trachomatis DNA Probe ?FINAL ? 06/22/10 10:17 Chlamydia trachomatis NEGATIVE by DNA a mplification The amplified DNA assay is cleared by [facility] for non-medicolegal diagnostic testing in [facility] adult population. Neisseria gonorrhea DNA Probe ?FINAL ? 06/22/10 10:17 Neisseria gonorrhea NEGATIVE by DNA amp lification. The amplified DNA assay is cleared by [facility] for non-medicolegal diagnostic testing in [facility] adult population. Specimen (Source) Anatomical Collection Method Collection Time Re ceived Time Location / / Volume Laterality 06/20/2010 3:38 PM CDT Nicholas Kay APRN, BIOMEDICAL EQUIPMENT TECH LAB_1 Performing Organization Address [facility] Code Phon e Number HP CONVERSION [...] 06/20/2010 12:33 PM CDT Nicholas Kay APRN, BIOMEDICAL EQUIPMENT TECH LAB_1 Performing Organization Address [facility] Code Phon e Number HP CONVERSION URINALYSIS ROUTINE(MICRO IF POS) (06/20/2010 12:33 PM CDT) [facility] gist Method Time Signature Urine [...] U Specific 1.010 1.005 - HP CONVERSION [place] 1.030 Urobilinogen Negative Negative HP CONVERSION Urine Eu/dL Specimen (Source) Anatomical Collection Method Collection Time Re ceived Time Location / / Volume Laterality 06/20/2010 12:33 PM CDT Nicholas Kay APRN, BIOMEDICAL EQUIPMENT TECH LAB_1 Performing Organization Address [facility] Phon e Number HP CONVERSION Urine Culture (06/20/2010 12:31 PM CDT) Analysis Performed At [facility] Time Signature Urine Culture SEE TEXT [...] Kay APRN, DON LAB_1 Performing Organization Address [facility] Phon e Number HP CONVERSION documented in this encounter Visit Diagnoses Not on filedocumented in this encounter Care Teams Sales Associate Cashier Relationship Specialty Start Date End Date Md Leigh MD PCP - General 05/26/10 05/11/13 [place] [address] documented as of this encounter
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
--- OUTSIDE RECORDS SUMMARY | 2021-10-19 13:56 | XMS_ITS | Encounter Summary ---
:1985 Author Organization [facility] Address [address] [place] [address] Care Team Providers Name Role Phone Md MINA Leigh Primary Care Provider Reason for Visit Reason Comments Other Encounter Details Date Type Department Care Team Description 06/20/2010 Telephone [facility] [address] [place], Message Other Obstetrics/Gynecolog y [address] [place] [address] Social History Tobacco Use Types Packs/Day Years Used Date Smoking Tobacco: Never Assessed Sex Assigned at Date Recorded Not on file documented as of this encounter Progress Notes [place], Message - 06/20/2010 8:33 AM CDT Ml on pt's contact number to go to PRODUCTION CELL LEADER lab 1/2 hr prior to appt for UA/UC. Labs faxed. Created on 20Jun2010 8:33am by ELVA DU documented in this encounter Plan of Treatment Not on filedocumented as of this encounter Visit Diagnoses Not on filedocumented in this encounter Care Teams Rivet Hole Machine Operator Relationship Specialty Start Date End Date Md Leigh MD PCP - General 05/26/10 05/11/13 [place] [address] documented as of this encounter
--- OUTSIDE RECORDS SUMMARY | 2021-10-19 13:56 | XMS_ITS | Encounter Summary ---
:1985 Author Organization [facility]ly [facility] Address [address] [place] [address] Care Team Providers Name Role Phone Md MINA Leigh Primary Care Provider Encounter Details Date Type Department Care Team Description 07/30/[address] [facility] 3850 Screening for iron deficiency anemia; Laboratory Screening for lipoid disorde rs; [address] Special screening examinatio n for other specified viral diseases; [place] [address] Urinary urgency [phone] Social History Tobacco Use Types Packs/Day Years [...] MICRO/CULTURE IF POS (07/30/2012 12:11 PM CDT) [facility] Time Signature Urine Type Urine:clean HP [...] U Specific 1.010 1.005 - HP CONVERSION [place] 1.030 Urobilinogen Negative Negative HP CONVERSION Urine Eu/dL Specimen Anatomical Collection Method Collection Time Receive d Time (Source) Location / / Volume Laterality Urine: 07/30/2012 12:11 07/30/2012 PM CDT 12:11 PM CDT Narrative HP CONVERSION - 07/30/2012 12:31 PM CDT Performed at [facility], [address] [place] [address] Nanette aKy APRN, CNP LAB_1 Performing Organization Address City/[facility] Code Phon e Number HP CONVERSION Hepatitis C Antibody, with Reflex (07/30/2012 12:11 PM CDT) [facility] [employer] Method Time Signature Hepatitis C Non-React Non-Reacti HP CONVERSION Antibody ve Specimen Anatomical Collection Method Collection Time Receive d Time (Source) Location / / Volume Laterality 07/30/2012 12:11 07/30/2012 1:32 PM CDT PM CDT Nanette Kay APRN, CNP LAB_1 Performing Organization Address [facility] Phon e Number HP CONVERSION Hep B [...] CONVERSION Treponema Screen (07/30/2012 12:11 PM CDT) [facility] gist Method Time Signature Treponema Non Reactive Non Reactive HP CONVERSION Screen Specimen Anatomical Collection Method Collection Time Receive d Time (Source) Location / / Volume Laterality 07/30/2012 12:11 07/30/2012 1:33 PM CDT PM CDT Nanette Kay APRN, CNP LAB_1 Performing Organization Address [facility] Code Phon e Number HP CONVERSION HIV ANTIBODY (07/30/2012 12:11 PM CDT) athologist Signature HIV 1/HIV 2 Non-React Non-Reacti HP CONVERSION ve Specimen Anatomical Collection Method Collection Time Receive d Time (Source) Location / / Volume Laterality 07/30/2012 12:11 07/30/2012 1:32 PM CDT PM CDT Nanette Kay APRN, CNP LAB_1 Performing Organization Address [facility] Code Phon e Number [...] - 07/30/2012 12:43 PM CDT Performed at [facility], [address] [place] [address] Nanette Kay APRN, CNP LAB_1 Performing Organization [...] Kay APRN, CNP LAB_1 Performing Organization Address [facility] Phon e Number HP CONVERSION (ABNORMAL) Hemogram/Plts (07/30/2012 12:11 PM CDT) [facility] gist Method Time Signature White Blood Cell [...] - 07/30/2012 12:22 PM CDT Performed at [facility], [address] [place] [address] Nanette Kay APRN, CNP LAB_1 Performing Organization Address [facility] Phon e Number HP CONVERSION documented in this encounter Visit Diagnoses Diagnosis Screening for iron deficiency anemia Screening for lipoid disorders Special screening examination for other specified viral diseases Urinary urgency Urgency of urination documented in this encounter Care Teams Community Services Manager Relationship Specialty Start Date End Date Md Leigh MD PCP - General 05/26/10 05/11/13 [place] [address] documented as of this encounter
--- OUTSIDE RECORDS SUMMARY | 2021-10-19 13:56 | XMS_ITS | Encounter Summary ---
:1985 Author Organization [facility] Address [address] [place] [address] Care Team Providers Name Role Phone Md MINA Leigh Primary Care Provider Encounter Details Date Type Department Care Team Description 01/23/2011 Notes/Orders [facility] Nanette Bravo, [address] APRN, [place] [address] [place] [address] [address] [place] [phone] (Wo rk) Social History Tobacco Use Types Packs/Day Years Used Date Smoking Tobacco: Never Assessed Sex Assigned at Date Recorded Not on file documented as of this encounter Plan of Treatment Not on filedocumented as of this encounter Visit Diagnoses Not on filedocumented in this encounter Care Teams Sales Development Manager Relationship Specialty Start Date End Date Md Leigh MD PCP - General 05/26/10 05/11/13 [place], [place] [address] documented as of this encounter
--- OUTSIDE RECORDS SUMMARY | 2021-10-19 13:56 | XMS_ITS | Encounter Summary ---
:1985 Author [facility] Address [address] [place] [address] Care Team Providers Name Role Phone Md MINA Leigh Primary Care Provider Reason for Referral Specialty Diagnoses / Procedures Referred By Contact Refer red To Contact Laverne Polanco MD [address] [facility] [address] [place] [address] Referral ID Status Reason Start Date Expiration Date Visits Requ ested Visits Authorized Reason for Visit Reason Comments CONSULT Encounter Details Date Type Department Care Team Description 08/27/2011 Surgical Consult [facility] Angelica Thomas, [facility] C[facility] MD Elliott (Primary Dx) [address] [facility] [address] [facility] [place] [address] [phone] Social History Tobacco Use Types Packs/Day Years [...] 09/03/11816 Note Time: 08/27/11 1641 Status: Signed Felting Machine Operator Helper: Angelica Thomas MD (Physician) NAME: ODESSA CHE VISIT: [id number] DICTATING CLINICIAN: ANGELICA THOMAS MD JOB: [id number] Med JOB: [id number] LOC: 3711 CLINIC PROGRESS NOTE DATE OF [...] 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 She is a nonsmoker. Drinks alcohol [...] she is doing well. We have discussed lobsterman outcome, possible return to running date as [...] patella documented in this encounter Care Teams Lead Manufacturing Engineering Tech Relationship Specialty Start Date End Date Md Leigh MD PCP - General 05/26/10 05/11/13 [place] [address] documented as of this encounter
--- OUTSIDE RECORDS SUMMARY | 2021-10-19 13:56 | XMS_ITS | Encounter Summary ---
:1985 Author Organization [facility] Address [address] [place] [address] Care Team Providers Name Role Phone Md MINA Leigh Primary Care Provider Reason for Referral Specialty Diagnoses / Procedures Referred By Contact Refer red To Contact Barbara Gamino AP RN, BEDSPREAD INSPECTOR [address] [place], [place] [address] Referral ID Status Reason Start Date Expiration Date Visits Requ ested Visits Authorized NE EQUIPMENT DESIGN ENGINEER Reason for Visit Reason Comments Skin Check Encounter Details Date Type Department Care Team Description 01/29/2012 Procedure Visit [facility] 3800 Karen Lester APRN , Skin Check Dermatology BEDSPREAD INSPECTOR [facility] [facility] [address] [place], [place] [address] [address] [place], [place] [phone] (Wo rk) Social History Tobacco Use Types Packs/Day Years Used Date Smoking Tobacco: Never Assessed Sex Assigned at Date Recorded Not on file documented as of this encounter Progress Notes Karen Lester APRN, CNP - 01/29/2012 5:19 PM CST Progress Notes signed by JOHN Olmstead at 01/31/12 665 Author: JOHN Olmstead Service: (none) Author Type: Nurse Practitioner Filed: 01/31/12749 Note Time: 01/29/121718 Status: Signed School Social Worker: Karen Trevon V., ANP (Nurse Practitioner) NAME: ODESSA CHE MR#: [id number] CSN: [id number] AUTHENTICATING CLINICIAN: JOHN Burgos CONFIRM #: [id number] LOC: 427 CLINIC PROGRESS NOTE DATE OF [...] has further concerns. NVR:MEDQ C: CONFIRM #: [id number] NE EQUIPMENT DESIGN ENGINEER Karen Lester APRN, CNP - 01/29/2012 5:16 [...] glands documented in this encounter Care Teams Window Glazier Relationship Specialty Start Date End Date Md Leigh MD PCP - General 05/26/10 05/11/13 [place] [address] documented as of this encounter
--- OUTSIDE RECORDS SUMMARY | 2021-10-19 13:56 | XMS_ITS | Encounter Summary ---
:1985 Author Organization [facility] Address [address] [place] [address] Care Team Providers Name Role Phone Md MINA Leigh Primary Care Provider Encounter Details Date Type Department Care Team Description 06/21/2010 PN Conversion Only CONVERSION CONVERSION Jovany Melendez MD [address] [place], [place] [phone] (Wo rk) Social History Tobacco Use Types Packs/Day Years Used Date Smoking Tobacco: Never Assessed Sex Assigned at Date Recorded Not on file documented as of this encounter Plan of Treatment Not on filedocumented as of this encounter Visit Diagnoses Not on filedocumented in this encounter Care Teams Superintendent Recreation Relationship Specialty Start Date End Date Md Leigh MD PCP - General 05/26/10 05/11/13 [place], [place] [id number] documented as of this encounter
--- OUTSIDE RECORDS SUMMARY | 2021-10-19 13:56 | XMS_ITS | Encounter Summary ---
:1985 Author Organization [facility] Address [address] [place] [address] Care Team Providers Name Role Phone Md MINA Leigh Primary Care Provider Encounter Details Date Type Department Care Team Description 01/23/2011 Lab Visit [facility] Hyperhidrosis; [address] An[place], [place] [phone] Social History Tobacco Use Types Packs/Day Years Used Date Smoking Tobacco: Never Assessed Sex Assigned at Date Recorded Not on file documented as of this encounter Progress Notes Nicholas Weaver APRN, CNP - 03/07/2011 3:22 PM CST remind patient to schedule her hemoglobin lab. Nicholas Weaver APRN, CNP - 01/25/2011 5:51 PM CHAIR FRAME BUILDER Addended by: NICHOLAS WEAVER on: 01/25/2011 Modules [...] Re sults for this (INCL IRON) PM CHAIR FRAME BUILDER procedure are i n the results section. THYROID STIMULATING Routine 01/23/2011 3:48 Hyperhidrosis Resu lts for this HORMONE PM CHAIR FRAME BUILDER procedure are i n the results section. COMPLETE BLOOD Routine 01/23/2011 3:48 Hyperhidrosis Results f or this COUNT-NO DIFF PM CHAIR FRAME BUILDER procedure are in the results section. FERRITIN Routine 01/23/2011 3:48 Hyperhidrosis Results for this PM CHAIR FRAME BUILDER procedure are i n the results section. VENIPUNCTURE (JEFF) Routine 01/23/2011 3:41 Hyperhidrosis Resu lts for this PM CHAIR FRAME BUILDER procedure are i n the results section. documented in this encounter Results THYROID STIMULATING HORMONE (01/23/2011 3:48 PM CHAIR FRAME BUILDER) athologist Signature Thyroid 0.98 0.20 - HP CONVERSION Stimulating 4.50 mIU/L Hormone Specimen Anatomical Collection Method Collection Time Receive d Time (Source) Location / / Volume Laterality 01/23/2011 3:48 PM 1 7:58 CHAIR FRAME BUILDER PM CHAIR FRAME BUILDER Nicholas Weaver APRN, CNP LAB_1 Performing Organization Address City/State/ZIP Code Phon e Number HP CONVERSION (ABNORMAL) IRON BINDING CAPACITY (INCL IRON) (01/23/2011 3:48 PM CHAIR FRAME BUILDER) [facility] gist Method Time Signature Iron, Serum [...] Volume Laterality 01/23/2011 3:48 PM 1 7:58 CHAIR FRAME BUILDER PM CHAIR FRAME BUILDER Nicholas Weaver APRN, CNP LAB_1 Performing Organization Address City/State/ZIP Code Phon e Number HP CONVERSION (ABNORMAL) Ferritin (01/23/2011 3:48 PM CHAIR FRAME BUILDER) athologist Signature Ferritin Serum <1 (L) 10 - 291 HP CONVERSION ng/mL Specimen Anatomical Collection Method Collection Time Receive d Time (Source) Location / / Volume Laterality 01/23/2011 3:48 PM 1 7:58 CHAIR FRAME BUILDER PM CHAIR FRAME BUILDER Nicholas Weaver APRN, CNP LAB_1 Performing Organization Address City/[facility] Phon e Number HP CONVERSION (ABNORMAL) Hemogram/Plts (01/23/2011 3:48 PM CHAIR FRAME BUILDER) [facility] gist Method Time Signature White Blood [...] Volume Laterality 01/23/2011 3:48 PM 1 3:48 CHAIR FRAME BUILDER PM CHAIR FRAME BUILDER Narrative HP CONVERSION - 01/23/2011 4:03 PM CHAIR FRAME BUILDER Performed at [facility], [address] [place] [address] Nicholas Weaver APRN, CNP LAB_1 Performing Organization Address [facility] Phon e Number HP CONVERSION VENIPUNCTURE (JEFF) (01/23/2011 3:41 PM CHAIR FRAME BUILDER) athologist Signature Venipuncture Done HP CONVERSION Specimen (Source) Anatomical Collection Method Collection Time Re ceived Time Location / / Volume Laterality 01/23/2011 3:41 PM CHAIR FRAME BUILDER Narrative HP CONVERSION - 01/23/2011 3:41 PM CHAIR FRAME BUILDER Performed at [facility], [address] [place] [address] Nicholas Weaver APRN, CNP LAB_1 Performing Organization Address [facility] Phon e Number HP CONVERSION documented in this encounter Visit Diagnoses Diagnosis Hyperhidrosis Primary focal hyperhidrosis Anemia Anemia, unspecified documented in this encounter Care Teams Steamship Agent Relationship Specialty Start Date End Date Md Leigh MD PCP - General 05/26/10 05/11/13 [place] [address] documented as of this encounter
--- OUTSIDE RECORDS SUMMARY | 2021-10-19 13:56 | XMS_ITS | Encounter Summary ---
:1985 Author Organization [facility] Address [address] [place] [address] Care Team Providers Name Role Phone Md MINA Leigh Primary Care Provider Reason for Visit Reason Comments Follow-up Encounter Details Date Type Department Care Team Description 12/13/2011 Office Visit [facility] 3850 Barbara Gamino Axil lary odor Family Medicine PRESSER MACHINE, PROSTHETIC DENTIST (Primary Dx) [address] [facility] [address] [place] [address] [phone] Social History Tobacco Use Types Packs/Day Years [...] glands documented in this encounter Care Teams Passenger Conductor Relationship Specialty Start Date End Date Md Leigh MD PCP - General 05/26/10 05/11/13 [place] [address] documented as of this encounter
--- OUTSIDE RECORDS SUMMARY | 2021-10-19 13:57 | XMS_ITS | Encounter Summary ---
:1985 Author Organization [facility] Address [address] [place] [address] Care Team Providers Name Role Phone Md MINA Leigh Primary Care Provider Encounter Details Date Type Department Care Team Description 01/13/2009 PN Conversion Only TAX CONSULTANT 38[address] Nanette Rodríguez APRN, [address] [facility] [address] [facility] 5th Floor [address] [place], [place] [address] (Wo rk) Social History Tobacco Use Types Packs/Day Years Used Date Smoking Tobacco: Never Assessed Sex Assigned at Date Recorded Not on file documented as of this encounter Plan of Treatment Not on filedocumented as of this encounter Procedures Procedure Name Priority Date/Time Associated Comments Diagnosis SEXUALLY TRANSMITTED Routine 01/13/2009 3:46 PM R esults for this DISEASE PROBE EMPLOYMENT OFFICE CLERK procedure are in the results section. ANATOMICAL PATH Routine 01/13/2009 8:23 AM Result s for this LIQUID BASED EMPLOYMENT OFFICE CLERK procedure are i n the results section. documented in this encounter Results Sexually Transmitted Disease Probe (01/13/2009 3:46 PM EMPLOYMENT OFFICE CLERK) [facility] gist Method Time Signature Sexually SEE TEXT HP CONVERSION Transmitted Disease Probe Comment: Patient: ODESSA CHE Sexually Trans Disease Probe ?Collected: ??[id number] ??[id number] Source: ENDOCERV ?Processed: ??[id number] ??[id number] Final Report ------ ?[id number] ??[id number] No Chlamydia trachomatis detected by amp lified DNA assay No Neisseria gonorrhoeae detected by amp lified DNA assay The Probete[employer]reak Amplified DNA assay is suman red by the FDA for non-medicolegal diagnostic testing in the adult population. Specimen (Source) Anatomical Collection Method Collection Time Re ceived Time Location / / Volume Laterality 01/13/2009 3:46 PM EMPLOYMENT OFFICE CLERK Nanette Kay APRN, DIRECTOR LAB_1 Performing Organization Address City/State/ZIP Code Phon e Number HP CONVERSION Pap Smear (01/13/2009 8:23 AM EMPLOYMENT OFFICE CLERK) [facility] gist Method Time Signature PAP Smear SEE TEXT No normal HP CONVERSION Liquid Based range Comment: Patient: OEDSSA CHE ? CERVICAL CYTOLOGY REPORT Pathology # ??[id number] ?Date Obtained: ? Date Received: CYTOLOGIC IMPRESSION: Negative for intraepithelial lesion or m alignancy. Verified 01/18/09 by: ??MB ? (electronic signature) ? ALYSA TIONAL DATA LMP: CLINICAL HIST LIQUID BASED PAP CERVICAL SPECIMEN ADEQUACY: ?? Satisfactory. ENDOCERVICAL CELLS: ??Present. Specimen (Source) Anatomical Collection Method Collection Time Re ceived Time Location / / Volume Laterality 01/13/2009 8:23 AM EMPLOYMENT OFFICE CLERK Nanette Kay BUMPER OPERATOR, DIRECTOR LAB_1 Performing Organization Address City/State/ZIP Code Phon e Number HP CONVERSION documented in this encounter Visit Diagnoses Not on filedocumented in this encounter Care Teams Director Of Residential Services Relationship Specialty Start Date End Date Md Lu, PCP - General 05/26/10 05/11/13 [place], [place] [address] documented as of this encounter
--- OUTSIDE RECORDS SUMMARY | 2021-10-19 13:57 | XMS_ITS | Encounter Summary ---
:1985 Author Organization [facility] Address [address] [place] [address] Care Team Providers Name Role Phone Md MINA Leigh Primary Care Provider Encounter Details Date Type Department Care Team Description 04/06/2010 Office Visit [facility] Nanette Bravo, [address] [facility], [place] [address] [place] [address] [address] [place] [address] (Wo rk) Social History Tobacco Use Types Packs/Day Years Used Date Smoking Tobacco: Never Assessed Sex Assigned at Date Recorded Not on file documented as of this encounter Progress Notes Nanette Bravo, JUANITA, GROUNDS CLEANER - 04/06/2010 12:01 AM CST SUBJECTIVE: Simona [...] discharged ambulatory and in stable condition. *SH~DNS~SOAP L EXTRUSION SUPERVISOR documented in this encounter Plan of Treatment Not on filedocumented as of this encounter Visit Diagnoses Not on filedocumented in this encounter Care Teams Clinical Safety Specialist Relationship Specialty Start Date End Date Md Leigh MD PCP - General 05/26/10 05/11/13 [place] [address] documented as of this encounter
--- OUTSIDE RECORDS SUMMARY | 2021-10-19 13:57 | XMS_ITS | Encounter Summary ---
:1985 Author Organization [facility] Address [address] [place] [address] Care Team Providers Name Role Phone Md MINA Leigh Primary Care Provider Encounter Details Date Type Department Care Team Description 01/13/2009 Office Visit [facility] 3800 Nanette Kay APRN, CNP Obstetrics/Gynecolog y [address] [facility] 5th [place] [address] [phone] Social History Tobacco Use Types Packs/Day Years Used Date Smoking Tobacco: Never Assessed Sex Assigned at Date Recorded Not on file documented as of this encounter Last Filed Vital Signs Vital Sign Reading Time Taken Comments Blood Pressure 122/65 01/13/2009 1:01 PM SOCIAL SCIENTIST Pulse 63 01/13/2009 1:01 PM SOCIAL SCIENTIST Temperature - - Respiratory Rate - - Oxygen Saturation - - Inhaled Oxygen Concentration - - Weight 52 kg (114 lb 9.5 oz) 01/13/2009 1:01 PM SOCIAL SCIENTIST C: 52.0kg Height 162.6 cm (5' 4) 01/13/2009 1:01 PM SOCIAL SCIENTIST C: 162.6 cm Body Mass Index 19.67 01/13/2009 1:01 PM SOCIAL SCIENTIST documented in this encounter Progress Notes Nanette Kay APRN, DON - 01/13/2009 12:01 AM CST H&P signed by OMAR Tucker at 01/23/092032 Author: OMAR Tucker Service: (none) Author Type: Nurse Practitioner Filed: 06/16/10 1807 Note Time: 01/13/09 0001 Status: Signed Underground Bolting Machine Operator: OMAR Tucker (Nurse Practitioner) NAME: ODESSA CHE MR#: [id number] ACCT: [id number] VISIT: [id number] DICTATING CLINICIAN: OMAR Tucker CONFIRM #: [id number] LOC: 412 CLINIC PHYSICAL DATE OF VISIT: 01/13/2009 SUBJECTIVE: : 1985. Kimberley is a nulliparous female who presents as new patient to me, as well as to Felipa Dang for health maintenance exam. Kimberley is currently using condoms for prevention and would really like to start oral contraceptives. 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 She has had 2 sexual partners historically. She has never been screened for gonorrhea or chlamydia. She believes her last Pap smear was about 2 years ago. As far as she knows, that was a normal exam. GENERAL FARM HAND HISTORY: Onset of menses age 11. Cycles [...] breast exam. OBSTETRICAL HISTORY: Not applicable. PAST GENERAL FARM HAND HISTORY: Not applicable. NON-GENERAL FARM HAND SURGERIES: Extraction of wisdom teeth. PERSONAL HEALTH HISTORY: Seasonal allergies. 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 She does not have any [...] pending. Will follow up based on results. JAR:[id number] C: 01/13/09 19:07 CONFIRM #: [id number] AL SCIENTIST documented in this encounter Plan of Treatment Not on filedocumented as of this encounter Visit Diagnoses Not on filedocumented in this encounter Care Teams Project Manager Finance Relationship Specialty Start Date End Date Md Lu, PCP - General 05/26/10 05/11/13 [place] [address] documented as of this encounter
--- OUTSIDE RECORDS SUMMARY | 2021-10-19 13:57 | XMS_ITS | Encounter Summary ---
:1985 Author Organization [facility] Address [address] [place] [address] Care Team Providers Name Role Phone Md MINA Leigh Primary Care Provider Encounter Details Date Type Department Care Team Description 03/31/2010 PN Conversion Only RELIGIOUS CONVERSION Social History Tobacco Use Types Packs/Day Years Used Date Smoking Tobacco: Never Assessed Sex Assigned at Date Recorded Not on file documented as of this encounter Plan of Treatment Not on filedocumented as of this encounter Visit Diagnoses Not on filedocumented in this encounter Care Teams Pai Gow Dealer Relationship Specialty Start Date End Date Md Leigh MD PCP - General 05/26/10 05/11/13 [place] [address] documented as of this encounter
--- OUTSIDE RECORDS SUMMARY | 2021-10-19 13:57 | XMS_ITS | Encounter Summary ---
:1985 Author Organization [facility] Address [address] [place] [address] Care Team Providers Name Role Phone Md MINA Leigh Primary Care Provider Encounter Details Date Type Department Care Team Description 03/31/2010 Office Visit [facility] [address], Care Jovany Guzman MD [address] [place] [address] [facility] [address] [place] [address] [place] [address] [phone] (Wo rk) Social History Tobacco Use Types Packs/Day Years Used Date Smoking Tobacco: Never Assessed Sex Assigned at Date Recorded Not on file documented as of this encounter Last Filed Vital Signs Vital Sign Reading Time Taken Comments Blood Pressure 121/80 03/31/2010 8:19 AM WORKFORCE PLANNER Pulse 66 03/31/2010 8:19 AM WORKFORCE PLANNER Temperature 37 ??C (98.6 ??F) 03/31/2010 8:19 AM WORKFORCE PLANNER C: 37.0 C Respiratory Rate 16 03/31/2010 8:19 AM WORKFORCE PLANNER Oxygen Saturation 100% 03/31/2010 8:19 AM WORKFORCE PLANNER Inhaled Oxygen Concentration - - Weight - - Height - - Body Mass Index - - documented in this encounter Progress Notes Jovany Degroot MD - 03/31/2010 12:01 AM CST NAME: ODESSA CHE MR#: [id number] ACCT: [id number] VISIT: [id number] DICTATING CLINICIAN: Megan Britton MD CONFIRM #: [id number] LOC: 420 CLINIC PROGRESS NOTE DATE OF [...] any vaginal discharge. She denies any numbness, jlcd-tqw-uxmxits feeling in lower or upper extremity, no [...] t.i.d. and if not better, have followup. [facility]:MEDQ C: CONFIRM #: [id number] FORCE PLANNER documented in this encounter Plan of Treatment Not on filedocumented as of this encounter Procedures Procedure Name Priority Date/Time Associated Diagnosis Comme nts XR CHEST 2 VIEWS Routine 03/31/2010 8:59 AM Resul ts for this WORKFORCE PLANNER procedure are i n the results section. documented in this encounter Results XR Chest 2 Views (03/31/2010 8:59 AM WORKFORCE PLANNER) Anatomical Region Laterality Modality Chest, Lung Other Specimen (Source) Anatomical Location Collection Method / Collectio n Time Received Time / Laterality Volume Impressions 03/31/2010 8:59 AM WORKFORCE PLANNER : ??Normal. Dictating TAYLOR ROBINS RADIOLOGIST Narrative 03/31/2010 8:59 AM WORKFORCE PLANNER FINDINGS: ??No comparisons. ??Cardiac and mediastinal silhouettes [...] on filedocumented in this encounter Care Teams Account Manager B2B Relationship Specialty Start Date End Date Md Lu, PCP - General 05/26/10 05/11/13 [place] [address] documented as of this encounter
--- OUTSIDE RECORDS SUMMARY | 2021-10-19 13:57 | XMS_ITS | Encounter Summary ---
:1985 Author Organization [facility] Address [address] [place] [address] Care Team Providers Name Role Phone Md MINA Leigh Primary Care Provider Reason for Visit Reason Comments Other Encounter Details Date Type Department Care Team Description 02/16/2009 Telephone [facility] [address] , RECHARGER, REFRIGERATION PERSON Other Obstetrics/Gynecolog y [address] [facility] 5th [place] [address] [place], [place] [address] (Wo rk) Social History Tobacco Use Types [...] 06/15/101938 Note Time: 02/16/09 0848 Status: Signed Internal Carver: Yulisa Carlson RN (Registered Nurse) MESSAGE TO CARE TEAM NAME OF CALLER:zhanna samayoa NAME OF CLINICIAN:anbila schwartz MESSAGE:patient is having a constant frontal [...] else is called to pharmacy, please use [facility] [address]. Pt can be reached at [phone], msg ok On 21Feb2009 5:18pm LIANG KAY [...] wrote: No response from patient, call closed. NCED MANUFACTURING TECHNICIAN documented in this encounter Plan of Treatment Not on filedocumented as of this encounter Visit Diagnoses Not on filedocumented in this encounter Care Teams Cable Placer Relationship Specialty Start Date End Date Md Leigh MD PCP - General 05/26/10 05/11/13 [place] [address] documented as of this encounter
--- OUTSIDE RECORDS SUMMARY | 2021-10-19 13:57 | XMS_ITS | Encounter Summary ---
:1985 Author [facility] Address [address] [place] [address] Care Team Providers Name Role Phone Md MINA Leigh Primary Care Provider Encounter Details Date Type Department Care Team Description 07/12/2008 Office Visit [facility] [address], Care Jovany Guzman MD [address] [place] [address] [facility] [address] [place] [address] [place] [address] [phone] (Wo rk) Social History Tobacco Use Types [...] 1319 Note Time: 07/12/08 0001 Status: Signed Multifocal Button Generator: Megan Britton MD (Physician) NAME: ODESSA CHE MR#: [id number] ACCT: [id number] VISIT: [id number] DICTATING CLINICIAN: Megan Britton MD CONFIRM #: [id number] LOC: 420 CLINIC PROGRESS NOTE DATE OF [...] try some icing and ibuprofen as well. [facility]:[id number] C: 07/13/08 10:58 CONFIRM #: [id number] documented in this encounter Plan of Treatment [...] recommended if there are persistent s ymptoms. [id number]/ddb Dictating JUVENAL HERNANDEZ RADIOLOGIST Procedure Note Juvenal [...] recommended if there are persistent s ymptoms. [id number]/ddb Dictating JUVENAL HERNANDEZ RADIOLOGIST Jovany Britton MD RAD GD documented in this encounter Visit Diagnoses Not on filedocumented in this encounter Care Teams Epic Specialist Relationship Specialty Start Date End Date Md Leigh MD PCP - General 05/26/10 05/11/13 [place] [address] documented as of this encounter
--- OUTSIDE RECORDS SUMMARY | 2021-10-19 13:57 | XMS_ITS | Encounter Summary ---
:1985 Author [facility] Address [address] [place] [address] Care Team Providers Name Role Phone Md MINA Leigh Primary Care Provider Encounter Details Date Type Department Care Team Description 03/31/2010 PN Conversion Only CHAMBER WALKER [address], [address] [place] [address] [place], [place] [phone] (Wo rk) Social History Tobacco Use Types Packs/Day Years Used Date Smoking Tobacco: Never Assessed Sex Assigned at Date Recorded Not on file documented as of this encounter Plan of Treatment Not on filedocumented as of this encounter Procedures Procedure Name Priority Date/Time Associated Comments Diagnosis SEXUALLY TRANSMITTED Routine 03/31/2010 9:50 AM R esults for this DISEASE PROBE ORTHOTICS PROSTHETICS TECHNICIAN procedure are in the results section. COMPLETE BLOOD Routine 03/31/2010 9:50 AM Results for this COUNT-W/DIFF ORTHOTICS PROSTHETICS TECHNICIAN procedure are i n the results section. DIFFERENTIAL Routine 03/31/2010 9:50 AM Results f or this ORTHOTICS PROSTHETICS TECHNICIAN procedure are i n the results section. WET PREP Routine 03/31/2010 9:40 AM Results f or this ORTHOTICS PROSTHETICS TECHNICIAN procedure are i n the results section. URINE MICROSCOPIC Routine 03/31/2010 8:48 AM Resu lts for this ORTHOTICS PROSTHETICS TECHNICIAN procedure are i n the results section. URINALYSIS Routine 03/31/2010 8:48 AM Results f or this ROUTINE(MICRO IF POS) ORTHOTICS PROSTHETICS TECHNICIAN proced ure are in the results section. URINE CULTURE Routine 03/31/2010 8:48 AM Results for this ORTHOTICS PROSTHETICS TECHNICIAN procedure are i n the results section. documented in this encounter Results Sexually Transmitted Disease Probe (03/31/2010 9:50 AM ORTHOTICS PROSTHETICS TECHNICIAN) [facility] Method Time Signature Sexually SEE TEXT HP CONVERSION Transmitted Disease Probe Comment: STDPR Sexually Transmitted Disease DNA Probe ? ORDERED BY: PAMELA PUGH - SOURCE: Endocervical for molecular testi ng COLLECTED: ??03/31/10 09:50 ? PLATED: ? 03/31/10 09:55 Chlamydia trachomatis DNA Probe ?FINAL ? 04/02/10 13:52 Chlamydia trachomatis NEGATIVE by DNA a mplification The amplified DNA assay is cleared by [facility] for non-medicolegal diagnostic testing in [facility] adult population. Neisseria gonorrhea DNA Probe ?FINAL ? 04/02/10 13:52 Neisseria gonorrhea NEGATIVE by DNA amp lification. The amplified DNA assay is cleared by [facility] [employer] for non-medicolegal diagnostic testing in [facility] adult population. Specimen (Source) Anatomical Collection Method Collection Time Re ceived Time Location / / Volume Laterality 03/31/2010 9:50 AM ORTHOTICS PROSTHETICS TECHNICIAN Pamela Britton MD LAB_1 Performing Organization Address City/State/ZIP Code Phon e Number HP CONVERSION (ABNORMAL) Differential (03/31/2010 9:50 AM ORTHOTICS PROSTHETICS TECHNICIAN) [facility] Method Time Signature Absolute 2.8 2.0 - [...] / / Volume Laterality 03/31/2010 9:50 AM ORTHOTICS PROSTHETICS TECHNICIAN Pamela Britton MD LAB_1 Performing Organization Address [facility] Code Phon e Number HP CONVERSION (ABNORMAL) Hemogram/Plts/Diff (03/31/2010 9:50 AM ORTHOTICS PROSTHETICS TECHNICIAN) Patholo gist Method Time Signature White Blood [...] / / Volume Laterality 03/31/2010 9:50 AM ORTHOTICS PROSTHETICS TECHNICIAN Pamela Britton MD LAB_1 Performing Organization Address [facility] Phon e Number HP CONVERSION Wet Prep (03/31/2010 9:40 AM ORTHOTICS PROSTHETICS TECHNICIAN) P athologist Signature Wet Prep SEE TEXT [...] / / Volume Laterality 03/31/2010 9:40 AM ORTHOTICS PROSTHETICS TECHNICIAN Pamela Britton MD LAB_1 Performing Organization Address [facility] Phon e Number HP CONVERSION Urine Culture (03/31/2010 8:48 AM ORTHOTICS PROSTHETICS TECHNICIAN) Analysis Performed At Patho logist Time Signature [...] / / Volume Laterality 03/31/2010 8:48 AM ORTHOTICS PROSTHETICS TECHNICIAN Pamela Britton MD LAB_1 Performing Organization Address [facility] Phon e Number HP CONVERSION (ABNORMAL) URINE MICROSCOPIC (03/31/2010 8:48 AM ORTHOTICS PROSTHETICS TECHNICIAN) [facility] Method Time Signature White Blood >100 (A) 0 - 4 /HPF HP CONVERSION Cells Urine Red Blood Cells 3-4 (A) 0 - 2 /HPF HP CONVERSION Urine Bacteria Urine Many (A) /HPF HP CONVERSION Epithelial Moderate /HPF HP CONVERSION Cells Specimen (Source) Anatomical Collection Method Collection Time Re ceived Time Location / / Volume Laterality 03/31/2010 8:48 AM ORTHOTICS PROSTHETICS TECHNICIAN Pamela Britton MD LAB_1 Performing Organization Address [facility] Phon e Number HP CONVERSION (ABNORMAL) URINALYSIS ROUTINE(MICRO IF POS) (03/31/2010 8:48 AM ORTHOTICS PROSTHETICS TECHNICIAN) [facility] gist Method Time Signature Urine Type Cln [...] U Specific <=1.005 1.005 - HP CONVERSION [place] 1.030 Urobilinogen Negative Negative HP CONVERSION Urine Eu/dL Specimen (Source) Anatomical Collection Method Collection Time Re ceived Time Location / / Volume Laterality 03/31/2010 8:48 AM ORTHOTICS PROSTHETICS TECHNICIAN Pamela Britton MD LAB_1 Performing Organization Address [facility] Phon e Number HP CONVERSION documented in this encounter Visit Diagnoses Not on filedocumented in this encounter Care Teams Flight Technician Relationship Specialty Start Date End Date Md Leigh MD PCP - General 05/26/10 05/11/13 [place] [address] documented as of this encounter
--- OUTSIDE RECORDS SUMMARY | 2021-10-19 13:57 | XMS_ITS | Encounter Summary ---
:1985 Author Organization [facility] Address [address] [place] [address] Care Team Providers Name Role Phone Md MINA Leigh Primary Care Provider Encounter Details Date Type Department Care Team Description 07/12/2008 PN Conversion Only UNEMPLOYMENT SPECIALIST [address] [place] [address] Social History Tobacco Use Types Packs/Day Years Used Date Smoking Tobacco: Never Assessed Sex Assigned at Date Recorded Not on file documented as of this encounter Plan of Treatment Not on filedocumented as of this encounter Visit Diagnoses Not on filedocumented in this encounter Care Teams Motorcycle Tester Relationship Specialty Start Date End Date Md Leigh MD PCP - General 05/26/10 05/11/13 [place], [place] [address] documented as of this encounter
--- OUTSIDE RECORDS SUMMARY | 2021-10-19 13:57 | XMS_ITS | Encounter Summary ---
:1985 Author Organization [facility] Address [address] [place] [address] Care Team Providers Name Role Phone Unavailable Primary Care Provider Unavailable Reason for Visit Reason Comments INJURY, FINGERS Encounter Details Date Type Department Care Team Description 09/01/1997 Telephone [facility]line Aisha Aguilar, RN INJURY, FINGERS [address] [place], [place] [address] [phone] [place] [address] Social History Tobacco Use Types Packs/Day Years Used Date Smoking Tobacco: Never Assessed Sex Assigned at Date Recorded Not on file documented as of this encounter Nursing Notes 09/01/1997 11:59 PM CDT >> CALL RECEIVED. Contact: [phone] >> AISHA AGUILAR 09/01/1997 10:07 pm Dad [...] to go to Er will go to [facility]. documented in this encounter Plan of Treatment Not on filedocumented as of this encounter Visit Diagnoses Not on filedocumented in this encounter
--- OUTSIDE RECORDS SUMMARY | 2021-10-19 13:57 | XMS_ITS | Encounter Summary ---
:[address] [facility] Address [address] [place] [address] Care Team Providers Name Role Phone Md MINA Leigh Primary Care Provider Encounter Details Date Type Department Care Team Description 12/25/2002 PN Conversion Only STORAGE ENGINEER [address] [place] [address] Social History Tobacco Use Types Packs/Day Years Used Date Smoking Tobacco: Never Assessed Sex Assigned at Date Recorded Not on file documented as of this encounter Plan of Treatment Not on filedocumented as of this encounter Visit Diagnoses Not on filedocumented in this encounter Care Teams Data Entry Machine Operator Relationship Specialty Start Date End Date Md Leigh MD PCP - General 05/26/10 05/11/13 [place], [place] [address] documented as of this encounter
--- OUTSIDE RECORDS SUMMARY | 2021-10-19 13:57 | XMS_ITS | Encounter Summary ---
:1985 [facility] Address [address] [place] [address] Care Team Providers Name Role Phone Md MINA Leigh Primary Care Provider Encounter Details Date Type Department Care Team Description 02/24/1989 PN Conversion Only PHARMACY RETAIL SUPPORT SPECIALIST [address] [place] [address] [address] [place] [address] (Wo rk) Social History Tobacco Use Types Packs/Day Years Used Date Smoking Tobacco: Never Assessed Sex Assigned at Date Recorded Not on file documented as of this encounter Plan of Treatment Not on filedocumented as of this encounter Visit Diagnoses Not on filedocumented in this encounter Care Teams Rental Representative Relationship Specialty Start Date End Date Md Leigh MD PCP - General 05/26/10 05/11/13 [place] [address] documented as of this encounter
--- NOTE | 2021-10-19 14:00 | CRLHL7_ITS ---
For Patients: As a result of the Century Cures Act, medical imaging exams and procedure reports are released immediately into your electronic medical record. You may view this report before your referring provider. If you have questions, please contact your health care provider. INDICATION: 2 vessel cord COMPARISON: 10/12/2021 TECHNIQUE: Real time reid scale imaging of the fetus was performed. FINDINGS: Sonographic imaging demonstrates a single living intrauterine gestation. Fetus demonstrates a regular cardiac rate of 152 beats per minute. Fetus has a vertex position. The amniotic fluid volume appears normal and there is a single deepest pocket measurement of 7.4 cm. The fetus was active and demonstrated normal breathing movements. There was normal flexion and extension of the trunk and extremities. IMPRESSION: Normal biophysical profile score of 8 out of 8. Dictated by Twin Sykes MD @ 10/19/2021 3:16:15 PM (Electronically Signed)
== END 2021-10-19 13:53 | disposition home or self-care (01) ==
LOC: US 13:53
PROVIDERS: PCP Nurse Practitioner Family; Visit Provider Obstetrics & Gynecology
DX: O09.899 Supervision of other high risk pregnancies, unspecified trimester (principal)
CPT/HCPCS: 76819

== ENCOUNTER 2021-10-26 13:57 | Outpatient (CLI) | payer BC, SELFPAY ==
--- OUTSIDE RECORDS SUMMARY | 2021-10-26 13:59 | XMS_ITS | Encounter Summary ---
:1985 Author [facility] Address [address] [place] [address] Care Team Providers Name Role Phone Jie Farah DO Primary Care Provider Reason for Visit Reason Onset Date Comments Refill 02/18/2018 Encounter Details Date Type Department Care Team Description 02/18/2018 Refill [facility] [address] Family Jie Roper, Refill Medicine [address] [place] [address] [place], [place] [address] [phone] Social History Tobacco Use Types Packs/Day Years [...] AM CST See Refill Encounter dated 02/12/18 EL HEADING SUPERVISOR documented in this encounter Plan of Treatment Not on filedocumented as of this encounter Visit Diagnoses Not on filedocumented in this encounter Care Teams Watchguard Relationship Specialty Start Date End Date Jie Farah DO PCP - General Family Practice 04/05/16 [address] [place] [address] documented as of this encounter
--- OUTSIDE RECORDS SUMMARY | 2021-10-26 13:59 | XMS_ITS | Encounter Summary ---
:1985 Author Organization [facility] Address [address] [place] [address] Care Team Providers Name Role Phone Jie Mckeon DO Primary Care Provider Reason for Visit Reason Onset Date Comments Refill 06/01/2020 SUMAtriptan (IMITREX ) 100 MG tablet Encounter Details Date Type Department Care Team Description 06/01/2020 Refill [facility] [address] Jie Mckeon, Re fill (SUMAtriptan Family Medicine DO (IMITREX) 100 MG [address] [place] [address]) [place] [id number] (Wo rk) Social History Tobacco Use Types [...] Villalpando RN 06/02/2020, 9:40 AM Interface, Out Apptimize Prov Query - 06/01/2020 10:42 AM CDT SUMAtriptan (IMITREX) 100 MG tablet Medication started: 04/08/2015 Last ordered by JIE MCKEON: 03/29/2020 (64 days ago) QTY: 18, Refills: 0, Sig: take 1 tabletby mouth as needed for migraine. (unchanged) -> An office visit is overdue (performed 16 months ago, required every 12 months). Last qualifying visit: 02/15/2019 (with JIE CMKEON) Next scheduled visit: None Powered by LayerBoom, Reference: [id number], 06/01/2020 10:42:02 AM CDT, Pool: [id number] FM REFILL ([id number]) documented in this encounter Plan of Treatment Not on filedocumented as of this encounter Visit Diagnoses Not on filedocumented in this encounter Care Teams Driver Courier Relationship Specialty Start Date End Date Jie Mckeon, DO PCP - General Family Practice 04/05/16 [address] [place] [address] documented as of this encounter
--- OUTSIDE RECORDS SUMMARY | 2021-10-26 13:59 | XMS_ITS | Encounter Summary ---
:1985 Author Organization [facility] Address [address] [place] [address] Care Team Providers Name Role Phone Jie Farah DO Primary Care Provider Encounter Details Date Type Department Care Team Description 06/05/2020 Immunization [place] COVDE Encounter for Vaccine Program administration of vaccine [address] (Primary Dx) [place], [place] [address] Social History Tobacco Use Types [...] Primary documented in this encounter Care Teams Regional Transfer Liaison Relationship Specialty Start Date End Date Jie Farah DO PCP - General Family Practice 04/05/16 [address] [place] [address] documented as of this encounter
--- OUTSIDE RECORDS SUMMARY | 2021-10-26 13:59 | XMS_ITS | Encounter Summary ---
:1985 Author Organization [facility] Address [address] [place] [address] Care Team Providers Name Role Phone Jie Mckeon DO Primary Care Provider Reason for Visit Reason Onset Date Comments Refill 07/14/2019 SUMAtriptan (IMITREX ) 100 MG tablet Encounter Details Date Type Department Care Team Description 07/14/2019 Refill [facility] 38[address] Jie Mckeon, Re fill (SUMAtriptan Family Medicine DO (IMITREX) 100 MG [address] [place] [address] tab let) [place] [phone] (Wo rk) Social History Tobacco Use Types [...] mouth as needed for Migraine. Interface, Out VitaPortal Query - 07/14/2019 9:55 AM CDT SUMAtriptan [...] 57 mm Hg on 02/15/2019 Powered by Bioscan, Reference: [id number], 07/14/2019 9:55:23 AM CDT, Pool: [id number] FM REFILL ([id number]) documented in this encounter Plan of Treatment Not on filedocumented as of this encounter Visit Diagnoses Not on filedocumented in this encounter Care Teams Planner Intern Relationship Specialty Start Date End Date Jie Mckeon, PCP - General Family Practice 04/05/16 [address] [place] [address] documented as of this encounter
--- OUTSIDE RECORDS SUMMARY | 2021-10-26 13:59 | XMS_ITS | Encounter Summary ---
:1985 Author Organization [facility] Address [address] [place] [address] Care Team Providers Name Role Phone Jie Farah DO Primary Care Provider Reason for Visit Reason Comments Sore Throat Encounter Details Date Type Department Care Team Description 05/18/2019 Nurse Triage [facility] Nurse Line Jie Farah, DO Sore Throat [address] [facility] [address] [place], [place] [address] [place] [address] [phone] Social History Tobacco Use Types Packs/Day Years [...] to watch for and when to [facility] [place]. She also returned from [facility] on 05/07[facility]19. Problem list reviewed as related to this call. Reason for Disposition ? ? [1] Sore throat is the only symptom AND [2] sore throat present < 48 hours Protocols used: SORE [id number] documented in this encounter Plan of Treatment Not on filedocumented as of this encounter Visit Diagnoses Not on filedocumented in this encounter Care Teams Lime Hide Inspector Relationship Specialty Start Date End Date Jie Farah DO PCP - General Family Practice 04/05/16 [address] [place] [address] documented as of this encounter
--- OUTSIDE RECORDS SUMMARY | 2021-10-26 13:59 | XMS_ITS | Encounter Summary ---
:1985 Author Organization [facility] Address [address] [place] [address] Care Team Providers Name Role Phone Jie Farah DO Primary Care Provider Reason for Visit Reason Comments MEDICATION CHECK Refill Encounter Details Date Type Department Care Team Description 02/15/2019 Office Visit [facility] 38[address] Jie Farah, [place] graine without aura Family Medicine DO and without status [address] francisco rainosus, not [address] intractable (Primary [place], [place] Dx ) [phone] (Wo rk) Social History Tobacco Use Types [...] Comments Blood Pressure 97/57 02/15/2019 9:07 AM AMMONIA SOLUTION PREPARER Pulse 61 02/15/2019 9:07 AM AMMONIA SOLUTION PREPARER Temperature - - Respiratory Rate - - Oxygen Saturation - - Inhaled Oxygen Concentration - - Weight 54.7 kg (120 lb 9.6 oz) 02/15/2019 9:07 AM AMMONIA SOLUTION PREPARER Height - - Body Mass Index 19.32 04/09/2017 3:19 PM AMMONIA SOLUTION PREPARER documented in this encounter Progress Notes Jie [...] or worsen referral to the headache Clinic. NIA SOLUTION PREPARER documented in this encounter Plan of Treatment Not on filedocumented as of this encounter Visit Diagnoses Diagnosis Migraine without aura and without status migrainosus, not intractable - Primary Migraine without aura, without mention o f intractable migraine without mention of status migrainosus documented in this encounter Care Teams Corduroy Cutting Supervisor Relationship Specialty Start Date End Date Jie Farah DO PCP - General Family Practice 04/05/16 [address] [place] [address] documented as of this encounter
--- OUTSIDE RECORDS SUMMARY | 2021-10-26 13:59 | XMS_ITS | Clinical Summary ---
:1985 Author Organization [facility] [place] [address] Care Team Providers Name Role Phone Unavailable [...] Type Group BLUE CROSS BLUE CROSS OF [id number] [address] [facility] MARY RANKIN [address] Guarantor Name Account Type Relation to Date of Phone Billing Patient Address Simona Che Personal/Family Self 1985 [address] (Home) [place] [phone] (Work)
--- OUTSIDE RECORDS SUMMARY | 2021-10-26 13:59 | XMS_ITS | Encounter Summary ---
:1985 Author Organization [employer] Address [address] [place] [address] Care Team Providers Name Role Phone Jie Mckeon DO Primary Care Provider Reason for Visit Reason Comments Refill SUMAtriptan (IMITREX) 100 MG tablet [Pharmacy Med Name: SUMATRIPTAN SUCC 100 MG TABLET] Encounter Details Date Type Department Care Team Description 07/12/2017 Refill [facility] 3850 Jie Mckeon, Re fill (SUMAtriptan Family Medicine DO (IMITREX) 100 MG tablet [address] [place] [address] [Ph armacy Med Name: Blvd. BLVD SUMATRIPTAN SUCC 100 MG [place], [place] TA BLET]) [phone] (Wo rk) Social History Tobacco Use Types [...] 74 mm Hg on 04/09/2017 Powered by Ometrics, Reference: [id number], 07/12/2017 6:02:29 PM CDT, Pool: [id number] FM REFILL ([id number]) Electronically signed by Interface, Out SureAlkeus PharmaceuticalsriPinoccio Prov Query at 07/15/2017 3:25 PM CDT documented in this encounter Plan of Treatment Not on filedocumented as of this encounter Visit Diagnoses Not on filedocumented in this encounter Care Teams Wired Sweatband Cutter Relationship Specialty Start Date End Date Jie Mckeon DO PCP - General Family Practice 04/05/16 [address] [place] [address] documented as of this encounter
--- OUTSIDE RECORDS SUMMARY | 2021-10-26 13:59 | XMS_ITS | Encounter Summary ---
:1985 Author Organization [facility] Address [address] [place] [address] Care Team Providers Name Role Phone Jie Mckeon DO Primary Care Provider Reason for Visit Reason Comments Refill SUMAtriptan (IMITREX) 100 MG tablet Encounter Details Date Type Department Care Team Description 01/27/2020 Refill [facility] 3850 Jie Mckeon, Re fill (SUMAtriptan Family Medicine DO (IMITREX) 100 MG [address] [place] [address] tab let) [place] [phone] (Wo rk) Social History Tobacco Use Types [...] Tablet by mouth as needed for Migraine. GER CT Interface, Out Codefast Prov Query - 01/27/2020 12:54 PM CST [...] MCKEON) Next scheduled visit: None Powered by Planwise, Reference: [id number], 01/27/2020 12:54:[address], Pool: PN REFILL WIZARD ADMIN ([id number]) GER CT Adan Archibald - 01/27/2020 12:53 PM CST [...] refills) Please route to: Refill Pool (P [id number]) [place] FP Pool [place] Patients ONLY (P [id number]) [facility] PEDSS Dr. Avila ONLY (P [id number]) GER CT documented in this encounter Plan of Treatment Not on filedocumented as of this encounter Visit Diagnoses Not on filedocumented in this encounter Care Teams Habitat Biologist Relationship Specialty Start Date End Date Jie Mckeon DO PCP - General Family Practice 04/05/16 [address] [place] [address] documented as of this encounter
--- OUTSIDE RECORDS SUMMARY | 2021-10-26 13:59 | XMS_ITS | Encounter Summary ---
:1985 Author Organization [facility]ending [facility] Address [address] [place] [address] Care Team Providers Name Role Phone Jie Farah DO Primary Care Provider Encounter Details Date Type Department Care Team Description 05/06/2020 Immunization [place] [facility] Encounter for Vaccine Program administration of vaccine [address] (Primary Dx) [place], [place] [address] Social History Tobacco Use Types [...] Primary documented in this encounter Care Teams Card Cleaner Relationship Specialty Start Date End Date Jie Farah DO PCP - General Family Practice 04/05/16 [address] [place] [address] documented as of this encounter
--- OUTSIDE RECORDS SUMMARY | 2021-10-26 13:59 | XMS_ITS | Encounter Summary ---
:1985 Author Organization [employer] Address [address] [place] [address] Care Team Providers Name Role Phone Jie Farah DO Primary Care Provider Reason for Visit Reason Comments MEDICATION CHECK migraine Encounter Details Date Type Department Care Team Description 02/23/2018 Office Visit [facility] 3850 Jie Farah, [place] graine without aura Family Medicine DO and without status [address] francisco rainosus, not [address] intractable (Primary [place], [place] Dx ) [phone] (Wo rk) Social History Tobacco Use Types [...] Comments Blood Pressure 108/75 02/23/2018 9:02 AM BLACKSMITH APPRENTICE Pulse 73 02/23/2018 9:02 AM BLACKSMITH APPRENTICE Temperature - - Respiratory Rate - - Oxygen Saturation - - Inhaled Oxygen Concentration - - Weight 51.3 kg (113 lb) 02/23/2018 9:02 AM BLACKSMITH APPRENTICE Height - - Body Mass Index 18.1 04/09/2017 3:19 PM BLACKSMITH APPRENTICE documented in this encounter Patient Instructions Patient InstructionsJj Campoverde, CHANNEL PROCESS SUPERVISOR - 02/23/2018 9:00 AM CST Images from [...] for dessert. Limit deep-fried vegetables, such as maldivian fries. ? Choose lean protein, such as [...] that works best for you. ? For [facility], call [phone]. ? For [facility], call [phone]. ? For [facility], call [phone]. ? For [facility], call [phone]. ? For [facility], call [phone]. (06/2017) ??[facility] KSMITH APPRENTICE documented in this encounter Progress Notes Jj Campoverde CMA - 02/23/2018 9:00 AM CST Medications needing refills have been pended for year supply. Requested Prescriptions Pending Prescriptions Disp Refills ??? SUMAtriptan (IMITREX) 100 MG tablet 54 Tablet 0 Sig: Take 1 Tablet by mouth as needed for Migraine. May repeat after 2 hours if needed. Max 2 tabs/24 hours. Max 9 days/month KSMITH APPRENTICE Jie Farah DO - 02/23/2018 9:00 AM [...] D as well to help prevent migraines. KSMITH APPRENTICE documented in this encounter Plan of Treatment Not on filedocumented as of this encounter Visit Diagnoses Diagnosis Migraine without aura and without status migrainosus, not intractable - Primary Migraine without aura, without mention o f intractable migraine without mention of status migrainosus documented in this encounter Care Teams Open Hearth Worker Relationship Specialty Start Date End Date Jie Farah DO PCP - General Family Practice 04/05/16 [address] [place] [address] documented as of this encounter
--- OUTSIDE RECORDS SUMMARY | 2021-10-26 13:59 | XMS_ITS | Encounter Summary ---
:1985 Author Organization [facility] Address [address] [place] [address] Care Team Providers Name Role Phone Jie Farah DO Primary Care Provider Reason for Visit Reason Onset Date Comments Refill 07/15/2017 Encounter Details Date Type Department Care Team Description 07/15/2017 Refill [facility] 3850 Family Jie Roper DO Refill Medicine [address] [place] [address] [place], [place] [address] [phone] Social History Tobacco Use Types Packs/Day Years [...] tablet [Jie Farah DO] Preferred pharmacy: [facility] [address] IN [facility] [address] [facility] Comment: Good Morning, Would it be possible to get a renewal of this prescription? It has been really beneficial in helping with headaches. I apologize if this was a duplication of the pharmacy. Thank you. Kimberley documented in this encounter Plan of Treatment Not on filedocumented as of this encounter Visit Diagnoses Not on filedocumented in this encounter Care Teams Body Presser Relationship Specialty Start Date End Date Jie Farah DO PCP - General Family Practice 04/05/16 [address] [place] [address] documented as of this encounter
--- OUTSIDE RECORDS SUMMARY | 2021-10-26 13:59 | XMS_ITS | Encounter Summary ---
:1985 Author Organization [facility] Address [address] [place] [address] Care Team Providers Name Role Phone Jie Mckeon DO Primary Care Provider Reason for Visit Reason Comments Refill SUMAtriptan (IMITREX) 100 MG tablet [Pharmacy Med Name: SUMATRIPTAN SUCC 100 MG TABLET] Encounter Details Date Type Department Care Team Description 02/12/[address] [facility] 3850 Jie Mckeon, Re fill (SUMAtriptan Family Medicine DO (IMITREX) 100 MG tablet [address] [place] [address] [Ph armacy Med Name: Blvd. BL[address] SUMATRIPTAN SUCC 100 MG [place], [place] TA BLET]) [phone] (Wo rk) Social History Tobacco Use Types [...] low priority to Refill Wizard Admin-PN Pool ([id number]) Sheree Tee - 02/18/2018 8:54 AM CST [...] encounter high priority to Refill Pool (P [id number]) Marga Mcdermott RN - 02/13/2018 5:46 PM CST Further Assistance Needed on Refill from Handle Lathe Operator Patient is overdue for Office visit. -> An office visit is overdue (performed over 21 months ago, required every 12 months). ? Last qualifying visit: 05/14/2016 (with JIE MCKEON) ? Next scheduled visit: None ? Please call patient to schedule a Office Visit and document using .JOSE MIGUEL. After attempting to schedule patient: Please route to: Jei Mckeon, DO Requested Prescriptions Pending Prescriptions Disp Refills ??? SUMAtriptan (IMITREX) 100 MG tablet [Pharmacy Med Name: SUMATRIPTAN SUCC 100 MG TABLET] 54 Tablet Sig: TAKE 1 TABLETAS NEEDED FOR MIGRAINE. MAY REPEAT AFTER 2 HRS IF NEEDED. MAX 2 TABS/24HRS, 9DAYS/MONTH SMITTER CHIEF Interface, Out Surescripts Prov Query - 02/12/2018 [...] 74 mm Hg on 04/09/2017 Powered by [employer]ER[employer], Reference: [id number], 02/12/2018 9:37:46 AM TRANSMITTER CHIEF, Pool: [id number] FM REFILL ([id number]) SMITTER CHIEF documented in this encounter Plan of Treatment Not on filedocumented as of this encounter Visit Diagnoses Not on filedocumented in this encounter Care Teams Volleyball Coach Relationship Specialty Start Date End Date Jie Mckeon DO PCP - General Family Practice 04/05/16 [address] [place] [address] documented as of this encounter
--- OUTSIDE RECORDS SUMMARY | 2021-10-26 13:59 | XMS_ITS | Encounter Summary ---
:1985 Author Organization [facility] Address [address] [place] [address] Care Team Providers Name Role Phone Jie Mckeon DO Primary Care Provider Reason for Visit Reason Comments Refill SUMAtriptan (IMITREX) 100 MG tablet [Pharmacy Med Name: SUMATRIPTAN SUCC 100 MG TABLET] Encounter Details Date Type Department Care Team Description 11/03/2018 Refill [facility] 3850 Jie Mckeon, Re fill (SUMAtriptan Family Medicine DO (IMITREX) 100 MG tablet [address] [place] [address] [Ph armacy Med Name: Blvd. BL[address] SUMATRIPTAN SUCC 100 MG [place], [place] TA BLET]) [phone] (Wo rk) Social History Tobacco Use Types [...] 75 mm Hg on 02/23/2018 Powered by Gymtrack, Reference: [id number], 11/03/2018 8:37:25 AM CDT, Pool: [id number] FM REFILL ([id number]) documented in this encounter Plan of Treatment Not on filedocumented as of this encounter Visit Diagnoses Not on filedocumented in this encounter Care Teams Retail Gift Card Merchandising Relationship Specialty Start Date End Date Jie Mckeon DO PCP - General Family Practice 04/05/16 [address] [place], [place] [address] documented as of this encounter
--- OUTSIDE RECORDS SUMMARY | 2021-10-26 13:59 | XMS_ITS | Encounter Summary ---
:1985 Author Organization [employer] Address [address] [place] [address] Care Team Providers Name Role Phone Sofi Jie Rock DO Primary Care Provider Reason for Visit Reason Comments Annual Exam Encounter Details Date Type Department Care Team Description 04/09/2017 [facility] Nanette Kay Well female exam with routine gynecological exam (Primary Dx); Obstetrics/Gynecolog HAND FOLDER, CRAB MEAT PROCESSOR Oral contraceptive pill surveillance y [address] [facility] 5th [place] [address] [phone] (Wo rk) Social History Tobacco Use Types [...] Comments Blood Pressure 110/74 04/09/2017 3:19 PM EVENT MANAGEMENT CONSULTANT Pulse 82 04/09/2017 3:19 PM EVENT MANAGEMENT CONSULTANT Temperature - - Respiratory Rate - - Oxygen Saturation - - Inhaled Oxygen Concentration - - Weight 53.3 kg (117 lb 6.4 oz) 04/09/2017 3:19 PM EVENT MANAGEMENT CONSULTANT Height 168.3 cm (5' 6.25) 04/09/2017 3:19 PM EVENT MANAGEMENT CONSULTANT Body Mass Index 18.81 04/09/2017 3:19 PM EVENT MANAGEMENT CONSULTANT documented in this encounter Patient Instructions [...] continue your pills. I am available at [phone] or through [employer] if you have any concerns. Happy Liane's Day. I hope you are feeling better.soon.. T MANAGEMENT CONSULTANT documented in this encounter Progress Notes Nanette [...] continue your pills. I am available at [phone] or through [employer] if you have any concerns. Happy Rob's Day. I hope you are feeling better.soon.. Current Control:OCPs T MANAGEMENT CONSULTANT documented in this encounter Plan of Treatment Not on filedocumented as of this encounter Visit Diagnoses Diagnosis Well female exam with routine gynecologi bre exam - Primary Routine gynecological examination Oral contraceptive pill surveillance Surveillance of previously prescribed co ntraceptive pill documented in this encounter Care Teams Master Technician Relationship Specialty Start Date End Date Jie Farah DO PCP - General Family Practice 04/05/16 [address] [place] [address] documented as of this encounter
--- OUTSIDE RECORDS SUMMARY | 2021-10-26 13:59 | XMS_ITS | Clinical Summary ---
:1985 Author Organization [facility] Address [address] [place] [address] Care Team Providers Name Role Phone Jie [...] for each transition of care or referral. [facility] [employer] Allergies No known active allergies Medications Medication [...] Comments Blood Pressure 97/57 02/15/2019 9:07 AM RESEARCH GREENHOUSE SUPERVISOR Pulse 61 02/15/2019 9:07 AM RESEARCH GREENHOUSE SUPERVISOR Temperature 36.8 ??C (98.3 ??F) 04/07/2017 5:36 PM RESEARCH GREENHOUSE SUPERVISOR Respiratory Rate 16 04/07/2017 5:36 PM RESEARCH GREENHOUSE SUPERVISOR Oxygen Saturation 100% 09/25/2014 9:05 AM CDT Inhaled Oxygen Concentration - - Weight 54.7 kg (120 lb 9.6 oz) 02/15/2019 9:07 AM RESEARCH GREENHOUSE SUPERVISOR Height 168.3 cm (5' 6.25) 04/09/2017 3:19 PM RESEARCH GREENHOUSE SUPERVISOR Body Mass Index 19.32 04/09/2017 3:19 PM RESEARCH GREENHOUSE SUPERVISOR Plan of Treatment Health Maintenance Due Date [...] Dates Phone Addre ss Type Group [facility] [id number] 2016-Present [address] [address] [place] [address] (Work) Simona Che Personal/Famil Self 1985 [address] ([address]) [address] [phone] APARTMENT [address] (Work) [place] [address] Bandar Che Personal/Famil Self 04/23/1960 [address] (Home) [place] [phone] (Work) Advance Directives Latest Code Status on File Code Status Date Activated Date Inactivated Comments Full Code 05/28/2013 11:30 AM 05/28/2013 2:36 PM Care Teams Packager Relationship Specialty Start Date End Date Jie Farah DO PCP - General Family Practice 04/05/16 [address] [place] [address]
--- OUTSIDE RECORDS SUMMARY | 2021-10-26 13:59 | XMS_ITS | Encounter Summary ---
:1985 Author Organization [facility] Address [address] [place] [address] Care Team Providers Name Role Phone Jie Mckeon DO Primary Care Provider Reason for Visit Reason Onset Date Comments Refill 03/29/2020 SUMAtriptan (IMITREX ) 100 MG tablet Encounter Details Date Type Department Care Team Description 03/29/2020 Refill [facility] 3850 Jie Mckeon, Re fill (SUMAtriptan Family Medicine DO (IMITREX) 100 MG [address] [place] [address] [place] [place] [address] tab let) [place] [address] [phone] (Wo rk) Social History Tobacco Use Types [...] Tablet by mouth as needed for Migraine. EHOLD WORKER Keven Leblanc, RN - 03/29/2020 12:32 PM CST 90 day supply given per Emergency Refill Standing Order. Keven Leblanc RN 03/29/2020, 12:32 PM EHOLD WORKER Interface, Out [employer]oter[employer] Prov Query - 03/29/2020 10:06 AM CST [...] MCKEON) Next scheduled visit: None Powered by [facility], Reference: [id number], 03/29/2020 10:06:04 AM HOUSEHOLD WORKER, Pool: [id number] FM REFILL ([id number]) EHOLD WORKER documented in this encounter Plan of Treatment Not on filedocumented as of this encounter Visit Diagnoses Not on filedocumented in this encounter Care Teams Marine Engineer Cpvec Relationship Specialty Start Date End Date Jie Mckeon DO PCP - General Family Practice 04/05/16 [address] [place] [address] documented as of this encounter
--- OUTSIDE RECORDS SUMMARY | 2021-10-26 13:59 | XMS_ITS | Encounter Summary ---
:1985 Author [facility] Address [address] [address] Care Team Providers Name Role Phone Sofi Jie Shweta ZARAGOZA Primary Care Provider Reason for Visit Reason Comments Refill Encounter Details Date Type Department Care Team Description 03/08/2018 [facility]ill [facility] Nicholas Kay A PRN, SUPERVISOR GARMENT MANUFACTURING Refill Obstetrics/Gynecolog y [address] [facility] 5th [place] [address] [place], [place] [address] (Wo rk) Social History Tobacco Use Types [...] Department Center 04/22/2018 7:30 AM Nicholas Kay, BRICK PITCHER, SUPERVISOR GARMENT MANUFACTURING P6500 OB PN 6370 ITY TECH documented in this encounter Plan of Treatment Not on filedocumented as of this encounter Visit Diagnoses Not on filedocumented in this encounter Care Teams Filer Helper Relationship Specialty Start Date End Date Jie Farah DO PCP - General Family Practice 04/05/16 [address] [place] [address] documented as of this encounter
--- NOTE | 2021-10-26 14:00 | CRLHL7_ITS ---
For Patients: As a result of the Century Cures Act, medical imaging exams and procedure reports are released immediately into your electronic medical record. You may view this report before your referring provider. If you have questions, please contact your health care provider. INDICATION: Two vessel cord. COMPARISON: OB ultrasound 10/19/2021. TECHNIQUE: Real time reid scale imaging of the fetus was performed without non-stress testing. FINDINGS: Sonographic imaging demonstrates a single living intrauterine gestation. The fetus demonstrates a regular cardiac rate of 150 beats per minute. The fetus has a cephalic orientation. The placenta lies fundal. Amniotic fluid volume appears normal with single deepest pocket measuring 5.2 cm (2/2). The fetus was active (2/2). The fetus demonstrated normal breathing movements (2/2). There was normal flexion and extension of the trunk and extremities (2/2). IMPRESSION: Normal biophysical profile score 8 out of 8. Dictated by Wendi Kendrick MD @ 10/26/2021 6:05:48 PM (Electronically Signed)
--- OUTSIDE RECORDS SUMMARY | 2021-10-26 14:00 | XMS_ITS | Encounter Summary ---
:1985 Author Organization [facility] Address [address] [place] [address] Care Team Providers Name Role Phone Denisse Sue DO Primary Care Provider Reason for Visit Reason Comments Annual Exam Encounter Details Date Type Department Care Team Description 12/22/2013 [facility] Nicholas Kay, Routine gen eral medical examination at a health care facility (Primary Dx); Obstetrics/Gynecolog y DON GRANT Special screening examination for unspec ified chlamydial disease [address] [place], [place] [facility] [address] [place] [address] [place], [place] [phone] (Wo rk) Social History Tobacco Use Types [...] pending. I will forward your results through [employer], or call you if there are anyconcerns. In the past you have had problems with low iron causing anemia. Most recent hemoglobin was normal at12.2. Please contact me at [phone] if there is anything you need. Have a great year. ACUTE documented in this encounter Progress Notes Nicholas Kay APRN, CNP - 12/30/2013 10:06 PM CST Subjective: iSmona Che is a 28 y.o. female with [...] Past Surgical History Procedure Laterality Date ??? [place] tooth extraction Family History: Family History Problem [...] Order Specific Question: Ordering Provider? (Dr, Res, COM WRITER, or PA Only) Answer: NICHOLAS KAY [[id number]] Patient Instructions It was good to meet [...] pending. I will forward your results through [employer], or call you if there are anyconcerns. In the past you have had problems with low iron causing anemia. Most recent hemoglobin was normal at12.2. Please contact me at [phone] if there is anything you need. Have a great year. Current Control: Condoms Electronically signed by Nicholas Kay, SPRING LAYER, AUDIO VISUAL PRODUCTION SPECIALIST at 12/30/2013 10:06 PM RN ACUTE documented in this encounter Plan of Treatment [...] Component Value Ref Test Analysis Performed At [facility] gist Range Method Time Signature Source [...] disease documented in this encounter Care Teams Roentgenology Teacher Relationship Specialty Start Date End Date Denisse Sue DO PCP - General 05/12/13 04/04/16 [address] [place] [address] documented as of this encounter
--- OUTSIDE RECORDS SUMMARY | 2021-10-26 14:00 | XMS_ITS | Encounter Summary ---
:1985 Author Organization [facility] Address [address] [place] [address] Care Team Providers Name Role Phone Denisse Sue DO Primary Care Provider Reason for Visit Reason Onset Date Comments Refill 12/26/2015 June Encounter Details Date Type Department Care Team Description 12/26/2015 [facility]ill [facility] Nicholas Kay, Derick PRN, OTOLARYNGOLOGY NURSE Refill () Obstetrics/Gynecolog y [address] [place] [address] [place], [place] [address] (Wo rk) Social History Tobacco Use Types [...] Department Center 03/04/2016 9:30 AM Nicholas Kay CONFERENCE SERVICES DIRECTOR, OTOLARYNGOLOGY NURSE [facility] Requested Prescriptions Signed [...] tablet [Nicholas Kay APRN, CNP] Preferred pharmacy: [address] Comment: Hi - I have an [...] on filedocumented in this encounter Care Teams Expense Clerk Relationship Specialty Start Date End Date Denisse Sue DO PCP - General 05/12/13 04/04/16 [address] [place] [address] documented as of this encounter
--- OUTSIDE RECORDS SUMMARY | 2021-10-26 14:00 | XMS_ITS | Encounter Summary ---
:1985 Author Organization [facility] Address [address] [place] [address] Care Team Providers Name Role Phone Denisse Sue DO Primary Care Provider Reason for Visit Reason Comments Refill Encounter Details Date Type Department Care Team Description 12/06/2014 [facility] Nanette Kay, Counseling for Obstetrics/Gynecolog DON GRANT control, oral y [address]ptives (Primary [address] Dx) [facility] [address] [place] [address] [place], [place] [phone] [address] Social History Tobacco Use Types Packs/Day Years [...] encounter Patient Instructions Patient InstructionsNanette Kay, JUANITA, PRODUCE SHIPPER - 12/06/2014 9:33 AM CDT Thank you [...] smear for February 2015. You can call [phone] to set the appointment. I am available at [phone] or through [facility] [employer] if your have any questions. documented in [...] smear for February 2015. You can call [phone] to set the appointment. I am available at [phone] or through [employer] if your have any questions. The patient [...] contraceptives documented in this encounter Care Teams Dust Control Engineer Relationship Specialty Start Date End Date Denisse Sue DO PCP - General 05/12/13 2 [address]88 [place] [address] documented as of this encounter
--- OUTSIDE RECORDS SUMMARY | 2021-10-26 14:00 | XMS_ITS | Encounter Summary ---
:1985 Author Organization [facility] Address [address] [place] [address] Care Team Providers Name Role Phone Md MINA Leigh Primary Care Provider Reason for Visit Reason Comments Follow-up Encounter Details Date Type Department Care Team Description 12/13/2011 Office Visit [facility] [address] Axil lary odor Family Medicine LABORER DEMOLITION, VP RESPIRATORY (Primary Dx) [address] [employer] [address] [place] [address] [phone] Social History Tobacco Use Types Packs/Day Years [...] glands documented in this encounter Care Teams Wheelchair Rental Clerk Relationship Specialty Start Date End Date Md Leigh MD PCP - General 05/26/10 05/11/13 [place] [address] documented as of this encounter
--- OUTSIDE RECORDS SUMMARY | 2021-10-26 14:00 | XMS_ITS | Encounter Summary ---
:1985 Author Organization [facility] Address [address] [place] [address] Care Team Providers Name Role Phone Md MINA Leigh Primary Care Provider Reason for Referral Specialty Diagnoses / Procedures Referred By Contact Refer red To Contact Laverne Polanco MD [address] [facility] [address] [place] [address] Referral ID Status Reason Start Date Expiration Date Visits Requ ested Visits Authorized Reason for Visit Reason Comments CONSULT Encounter Details Date Type Department Care Team Description 08/27/2011 Surgical Consult [facility] Angelica Thomas, [facility] MD Elliott (Primary Dx) [address] [facility] [place] [address] [phone] Social History Tobacco Use Types Packs/Day Years [...] 09/03/11816 Note Time: 08/27/11 1641 Status: Signed Smooth Plater: Angelica Thomas MD (Physician) NAME: ODESSA CHE VISIT: [id number] DICTATING CLINICIAN: ANGELICA THOMAS MD JOB: [id number] Med JOB: [id number] LOC: 3711 CLINIC PROGRESS NOTE DATE OF [...] 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 She is a nonsmoker. Drinks alcohol [...] she is doing well. We have discussed meterman outcome, possible return to running date as [...] patella documented in this encounter Care Teams Director Supplier Quality Relationship Specialty Start Date End Date Md Leigh MD PCP - General 05/26/10 05/11/13 [place] [address] documented as of this encounter
--- OUTSIDE RECORDS SUMMARY | 2021-10-26 14:00 | XMS_ITS | Encounter Summary ---
:1985 Author Organization [facility] Address [address] [place] [address] Care Team Providers Name Role Phone Denisse Sue Primary Care Provider Reason for Visit Reason Comments Post-Op Check Encounter Details Date Type Department Care Team Description 06/14/2013 Office Visit [facility] 3900 Nurse, P3900 Pod Local ized superficial Podiatric MedSurg swelling, mass, or lump [address] (Primary Dx) [place] [address] Social History Tobacco Use Types Packs/Day Years [...] number to call with any concerns is [phone] documented in this encounter Progress Notes Priscilla [...] Primary documented in this encounter Care Teams Assistant Manager Retail Relationship Specialty Start Date End Date Denisse Sue DO PCP - General 05/12/13 04/04/16 [address] [place], [place] [address] documented as of this encounter
--- OUTSIDE RECORDS SUMMARY | 2021-10-26 14:00 | XMS_ITS | Encounter Summary ---
:1985 Author Organization [facility] Address [address] [place] [address] Care Team Providers Name Role Phone Md MINA Leigh Primary Care Provider Reason for Visit Reason Comments RESULTS, TEST Encounter Details Date Type Department Care Team Description 04/07/[address] [facility] [address] Elizabeth Hurtado Loc alized superficial Podiatric MedSurg M, DPM swelling, mass, or [address] (Primary Dx) [place] [address] [phone] (Wo rk) Social History Tobacco Use Types [...] 04/14/1358 Note Time: 04/07/13 1032 Status: Signed Supervisor Sign Shop: Elizabeth Hurtado DPM (Physician) NAME: ODESSA CHE MR#: [id number] CSN: [id number] AUTHENTICATING CLINICIAN: Elizabeth Hurtado DPM CONFIRM #: [id number] LOC: 439 CLINIC PROGRESS NOTE DATE OF VISIT: 04/07/2013 : 1985 SUBJECTIVE: The patient is a 27-year-old female seen today to discuss MRI results of her left foot. She has a palpable soft tissue mass that is somewhat bothersome when she runs where her shoe rubs. It is not painful for her currently. MEDICATIONS: Reviewed and updated in [employer]. ALLERGIES: No known drug allergies. REVIEW OF [...] schedule procedure at her convenience with the work distributor. She will need a preoperative history and physical 1 month prior to procedure. SMS:MEDQ C: CONFIRM #: [id number] NESS PROGRAM COORDINATOR documented in this encounter Plan of Treatment Not on filedocumented as of this encounter Visit Diagnoses Diagnosis Localized superficial swelling, mass, or lump - Primary documented in this encounter Care Teams Bookkeeper Assistant Relationship Specialty Start Date End Date Md Lu, PCP - General 05/26/10 05/11/13 [place] [address] documented as of this encounter
--- OUTSIDE RECORDS SUMMARY | 2021-10-26 14:00 | XMS_ITS | Encounter Summary ---
:1985 Author Organization [facility] Address [address] [place] [address] Care Team Providers Name Role Phone Jie Farah DO Primary Care Provider Reason for Visit Reason Comments Refill SUMAtriptan (IMITREX) 100 MG tablet [Pharmacy Med Name: SUMATRIPTAN SUCC 100 MG TABLET] Encounter Details Date Type Department Care Team Description 06/19/2016 Refill [facility] 3850 Laura Kennedy, Refill (SUMAtriptan Family Medicine [address] [place] [address] (IMITREX) 100 MG tablet [address] [Pharmacy Med Name: [address]vd. [place], [place] SUMATRIPTAN SUCC 100 [place] [address] TABLET]) [address] [phone] Social History Tobacco Use Types Packs/Day Years [...] 76 mm Hg on 05/14/2016 Powered by [employer], Reference: [id number], 06/19/2016 7:15:38 AM CDT, Pool: [id number] FM REFILL ([id number]) documented in this encounter Plan of Treatment Not on filedocumented as of this encounter Visit Diagnoses Not on filedocumented in this encounter Care Teams Cardiac Care Unit Nurse Relationship Specialty Start Date End Date Jie Farah DO PCP - General Family Practice 04/05/16 [address] [place] [address] documented as of this encounter
--- OUTSIDE RECORDS SUMMARY | 2021-10-26 14:00 | XMS_ITS | Encounter Summary ---
:1985 Author Organization [facility] Address [address] [place] [address] Care Team Providers Name Role Phone Linette, Denisse Mane DO Primary Care Provider Encounter Details Date Type Department Care Team Description 05/28/[address] [facility] [address]urt[address] M, Mall Bld Ambul Surge ry DPM [address] [place] [address] [place] [address] [phone] (Wo rk) Social History Tobacco Use Types [...] signed by Elizabeth Hurtado DPM at 05/31/13 0934 Author: Elizabeth Hurtado DPM Service: (none) Author Type: Physician Filed: 05/31/13 0951 Note Time: 05/28/13 1328 Status: Signed Associate Professor Of Criminal Justice: Elizabeth Hurtado DPM (Physician) NAME: ODESSA CHE MR#: [id number] CSN: [id number] AUTHENTICATING CLINICIAN: Elizabeth Hurtado DPM CONFIRM #: [id number] LOC: 1 OPERATIVE REPORT DATE OF OPERATION: [...] 6 weeks postoperatively. SMS:MEDQ C: CONFIRM #: [id number] Elizabeth Hurtado DPM - 05/28/2013 11:28 AM [...] Results Pathology Report (05/28/2013 7:00 AM CDT) [facility] gist Method Time Signature Path: ?FINAL SURGICAL PATHOLOGY REP ORT HP CONVERSION Pathology #: [id number] ? Date Obtained: 05/28/2013 ?Date Received: 05/28/2013 [...] filled with a thin, clear serous fluid. Caramel Maker sections are submitted in 4469 . ?WEYAL [...] on filedocumented in this encounter Care Teams Production Checker Relationship Specialty Start Date End Date Denisse Sue DO PCP - General 05/12/13 04/04/16 [address] [place] [address] documented as of this encounter
--- OUTSIDE RECORDS SUMMARY | 2021-10-26 14:00 | XMS_ITS | Encounter Summary ---
:1985 [facility] Address [address] [place] [address] Care Team Providers Name Role Phone Jie Farah DO Primary Care Provider Reason for Visit Reason Onset Date Comments Refill 06/19/2016 Encounter Details Date Type Department Care Team Description 06/19/2016 Refill [facility] 3850 Family Denisse Sue, DO Refill Medicine [address] [place] [address] [place], [place] [address] [phone] Social History Tobacco Use Types Packs/Day Years [...] request Reason: RN Reviewed--Need signed order in [facility] for pended medication. Next Steps: Review [...] MG tablet [Denisse Sue DO] Preferred pharmacy: [address] Comment: Good Morning, I saw Dr. Farah earlier this month regarding a refill on this prescription. I am looking to have it refilled at the pharmacy. Could you please submit the new prescription? Thank you. documented in this encounter Plan of Treatment Not on filedocumented as of this encounter Visit Diagnoses Not on filedocumented in this encounter Care Teams Development Team Lead Relationship Specialty Start Date End Date Jie Farah DO PCP - General Family Practice 04/05/[address] [place] [address] documented as of this encounter
--- OUTSIDE RECORDS SUMMARY | 2021-10-26 14:00 | XMS_ITS | Encounter Summary ---
:1985 Author Organization [facility] Address [address] [place] [address] Care Team Providers Name Role Phone Denisse Sue DO Primary Care Provider Reason for Visit Reason Comments HEADACHE,MIGRAINE Encounter Details Date Type Department Care Team Description 06/01/2015 Office Visit [facility] 3850 Denisse Sue, Chronic migraine Family Medicine [address] without aura without [address] status migrainosus, [address] [place], [place] [address] (Primary Dx) [address] [phone] Social History Tobacco Use Types Packs/Day Years [...] Where can you learn more? Go to [employer] and enter U690 in the search box. Current as of: April 15, 2014 Content Version: 107 ?? [id number] [employer], Purple Harry. documented in this encounter Progress Notes Denisse Sue DO - 06/01/2015 8:31 AM CDT Subjective: Simona hCe is a 29 y.o. female who presents [...] school\work performance, speech difficulties, vomiting in the surgical lead. Home treatment has included Excedrin, ibuprofen, Imitrex [...] migrainosus documented in this encounter Care Teams Power Line Installer Relationship Specialty Start Date End Date Denisse Sue DO PCP - General 05/12/13 04/04/16 [address] [place] [address] documented as of this encounter
--- OUTSIDE RECORDS SUMMARY | 2021-10-26 14:00 | XMS_ITS | Encounter Summary ---
:1985 Author Organization [facility] Address [address] [place] [address] Care Team Providers Name Role Phone Denisse Sue DO Primary Care Provider Reason for Visit Reason Comments Surgery Orders Encounter Details Date Type Department Care Team Description 05/17/2013 Notes/Orders [facility] 39[address] Elizabeth Hurtado, Podiatric MedSurg DPM [address] [place] [address] [phone] Social History Tobacco Use Types Packs/Day Years Used Date Smoking Tobacco: Never Assessed Sex Assigned at Date Recorded Not on file documented as of this encounter Plan of Treatment Not on filedocumented as of this encounter Visit Diagnoses Not on filedocumented in this encounter Care Teams Director Of District Office Relationship Specialty Start Date End Date Denisse Sue DO PCP - General 05/12/13 2 [address] [place], [place] [address] documented as of this encounter
--- OUTSIDE RECORDS SUMMARY | 2021-10-26 14:00 | XMS_ITS | Encounter Summary ---
:1985 Author Organization [facility] Address [address] [place] [address] Care Team Providers Name Role Phone Linette, Denisse Mane ZARAGOZA Primary Care Provider Reason for Visit Reason Comments Post-Op Check Encounter Details Date Type Department Care Team Description 07/21/2013 Office Visit [facility] 39[address] Elizabeth Hurtado toperative Podiatric MedSurg FAN Gilliam follow-up (Primary Dx) [address] [place] [address] [facility] [address] [place] [phone] (Wo rk) Social History Tobacco Use Types Packs/Day Years Used Date Smoking Tobacco: Never Assessed Sex Assigned at Date Recorded Not on file documented as of this encounter Progress Notes Elizabeth Hurtado DPM - 07/21/2013 9:05 AM CDT Progress Notes signed by Elizabeth Hurtado DPM at 07/21/13 6799 Author: Elizabeth Hurtado DPM Service: (none) Author Type: Physician Filed: 07/21/13 3876 Note Time: 07/21/131217 Status: Signed Renovator Machine Operator: Elizabeth Hurtado DPM (Physician) NAME: ODESSA CHE MR#: [id number] CSN: [id number] AUTHENTICATING CLINICIAN: Elizabeth Hurtado DPM CONFIRM #: [id number] LOC: 439 CLINIC PROGRESS NOTE DATE OF [...] another month. She can continue with an unmw-mba-degmyhk scar product, such as a silicone gel product. Will release her today since she is doing quite well. Physical therapy referral was placed in case she would like to proceed with that if needed. SMS:MEDQ C: CONFIRM #: [id number] documented in this encounter Plan of Treatment Not on filedocumented as of this encounter Visit Diagnoses Diagnosis Postoperative follow-up - Primary Follow-up examination, following unspeci fied surgery documented in this encounter Care Teams Implant Polisher Relationship Specialty Start Date End Date Denisse Sue DO PCP - General 05/12/13 04/04/16 [address] [place] [address] documented as of this encounter
--- OUTSIDE RECORDS SUMMARY | 2021-10-26 14:00 | XMS_ITS | Encounter Summary ---
:1985 Author Organization [facility] Address [address] [place] [address] Care Team Providers Name Role Phone Denisse Sue DO Primary Care Provider Reason for Visit Reason Comments Annual Exam Encounter Details Date Type Department Care Team Description 03/02/2015 [facility] Nicholas Kay Preventativ e health care (Primary Dx); Obstetrics/Gynecolog DON [facility] Pap smear, as part of routine gynecologi bre examination; y [address] Screen for STD (sexually tra nsmitted disease); [address] Counseling for control, oral contr aceptives [facility] [address] [place] [address] [place], [place] [phone] [address] Social History Tobacco Use Types Packs/Day Years Used Date Smoking Tobacco: Never Assessed Sex Assigned at Date Recorded Not on file documented as of this encounter Last Filed Vital Signs Vital Sign Reading Time Taken Comments Blood Pressure 109/73 03/02/2015 8:28 AM PRODUCT ENGINEER Pulse 65 03/02/2015 8:28 AM PRODUCT ENGINEER Temperature - - Respiratory Rate - - Oxygen Saturation - - Inhaled Oxygen Concentration - - Weight 55.4 kg (122 lb 1.6 oz) 03/02/2015 8:28 AM PRODUCT ENGINEER Height 168.3 cm (5' 6.25) 03/02/2015 8:28 AM PRODUCT ENGINEER Body Mass Index 19.56 03/02/2015 8:28 AM PRODUCT ENGINEER documented in this encounter Patient Instructions [...] infection identified your results will be on Quixeyhart . Your control pills have been refilled [...] for evaluation. I am always available through [facility] or by calling the nurse triage line at [phone]. Have a great 2016 Kimberley! UCT ENGINEER documented in this encounter Progress Notes Amy Romero RN - 03/09/2015 8:57 AM PRODUCT ENGINEER Quick Note: Dear Simona, I am writing [...] call Cervical Cancer Screening and Management Team [phone] Sincerely, Amy Romero RN on behalf of Dr. Airam Obando, Web Marketing Assistant Rosalinda Dang Cervical Cancer Screening and Management UCT ENGINEER Nicholas Kay APRN, CNP - 03/02/2015 9:07 [...] Past Surgical History Procedure Laterality Date ??? [place] tooth extraction ??? Foot surgery 2012 Family [...] part of routine gynecological examination Z12.4 V76.2 CA OBTAINING SCREEN PAP SMEAR Pap Test Order [...] Order Specific Question: Ordering Provider? (, Miladys, FRONT WORKER, or PA Only) Answer: NICHOLAS KAY [[id number]] ??? Pap Test Order Order Specific Question: LMP (Date) Answer: 02/26/15 Order Specific Question: Abnormal Bleeding? Answer: No Order Specific Question: Menstrual Status Answer: None Apply Order Specific Question: Current form of therapy Answer: Hormone Therapy Order Specific Question: Hx of abnormal Pap test/MASTER SONAR TECHNICIAN cancer outside of [facility]? Answer: No Order Specific Question: Pap Source Answer: Cervical Order Specific Question: Pap test type Answer: Screening Order Specific Question: HPV Testing Answer: HPV Regardless of Pap Results (Screening age 30+) Order Specific Question: Ordering Provider? (Miladys Almonte, FRONT WORKER, or PA Only) Answer: NICHOLAS KAY [[id number]] ??? HPV with 16 18 Genotyping ??? CA OBTAINING SCREEN PAP SMEAR ??? norethindrone-ethinyl estradiol [...] weeks, [facility] culture for gonorrhea and Chlamydia was collected. You will be called with these results indicate infection and treatment, otherwise if no infection identified your [facility] will [facility] . Your control pills have been [...] for evaluation. I am always available through [employer] or by calling the nurse triage line at [phone]. Have a great 2016 Kimberley! Current Control: Oral contraceptives UCT ENGINEER documented in this encounter Miscellaneous Notes Miscellaneous [...] test results, callCervical Cancer Screening and Management [phone],Leslie B Carpenter, RN on behalf ofDr. Airam Obando, Medical DirectorMille Lacs [facility] Cervical Cancer Screening and Management UCT ENGINEER Miscellaneous - 04/03/2016 11:05 PM CSTNotes Recorded [...] test results, callCervical Cancer Screening and Management [phone],Amy Romero, RN on behalf ofDr. Airam Obando, Medical DirectorPark Laurence Cervical Cancer Screening and Management UCT ENGINEER documented in this encounter Plan of Treatment Not on filedocumented as of this encounter Procedures Procedure Name Priority Date/Time Associated Diagnosis Comme nts CHLAMYDIA & GC (14 Routine 03/02/2015 9:08 AM Screen for STD R esults for this YEARS AND OLDER) PRODUCT ENGINEER (sexually transmitted pr ocedure are in disease) the results section. PAP TEST ORDER Routine 03/02/2015 8:59 AM Pap smear, as part o f Results for this PRODUCT ENGINEER routine gynecological proced ure are in examination the results section. HPV WITH 16 18 Routine 03/02/2015 8:59 AM Results for this GENOTYPING, PRODUCT ENGINEER procedure are i n CERVICAL/ENDOCERVIC the resu lts AL section. ANATOMICAL PATH Routine 03/02/2015 8:59 AM Result s for this LIQUID BASED PRODUCT ENGINEER procedure are i n the results section. documented in this encounter Results Chlamydia & GC (03/02/2015 9:08 AM PRODUCT ENGINEER) [facility] gist Method Time Signature Chlamydia Negative Negative HP CONVERSION Trachomatis STD Comment: Test Performed by Detective Lieutenant Mediated Amplification CLIA Number [id number] N. gonorrhoeae STD Negative Negative HP CONVERSI ON Comment: Test Performed by Detective Lieutenant Mediated Amplification Performed at [facility], [address] ??[address] CLIA Number [id number] Source STD Cervix HP CONVERSION Comment: CLIA Number [id number] Specimen Anatomical Collection Method Collection Time Receive d Time (Source) Location / / Volume Laterality 03/02/2015 9:08 AM 6 3:29 PRODUCT ENGINEER PM PRODUCT ENGINEER Nicholas A Rahul [facility], [facility] LAB_1 Performing Organization Address City/State/ZIP Code Phon e Number HP CONVERSION Pap Smear (03/02/2015 8:59 AM PRODUCT ENGINEER) Specimen (Source) Anatomical Collection Method Collection Time Re ceived Time Location / / Volume Laterality 03/02/2015 8:59 AM PRODUCT ENGINEER Narrative HP CONVERSION - 03/06/2015 5:14 PM PRODUCT ENGINEER FINAL GYNECOLOGICAL CYTOLOGY REPORT Pathology #: [id number] ?Date Obtained: 03/02/2015 ? Date Received: 03/03/2015 [...] occur. ? End of Report Performed at [facility], [address] [place] [address] Transcriptions 04/03/2016 11:05 PM CSTNotes Recorded by [...] results, call Cervical Cancer Screening and Management [id number],Amy Romero RN on behalf ofDr. Airam Obando, Web Marketing Assistant [facility] Cervical Cancer Screening and Management Nicholas Kay APRN, [facility]_1 Performing Organization Address City/State/ZIP Code Phon e Number HP CONVERSION HPV with 16 18 Genotyping (03/02/2015 8:59 AM PRODUCT ENGINEER) [facility] Method Time Signature HPV High Risk [...] and its pe rformance characteristics determined by [facility]. It has not been cleared or approved by [facility]. The laboratory is regulated under CLIA as qualified to perform high-complexity testing. This test is used for clinical purposes. It should not be regarded as investigational or fo r research. Specimen Anatomical Collection Method Collection Time Receive d Time (Source) Location / / Volume Laterality 03/02/2015 8:59 AM 6 8:59 PRODUCT ENGINEER AM PRODUCT ENGINEER Narrative HP CONVERSION - 03/08/2015 2:17 PM PRODUCT ENGINEER Performed at [facility], [facility] [place] [address] CLIA number [id number] Transcriptions 04/03/2016 11:05 PM CSTNotes Recorded by [...] results, call Cervical Cancer Screening and Management [phone] Contreras RN on behalf ofDr. Airam Obando, Web Marketing Assistant Rosalinda Bradyllet Cervical Cancer Screening and Management Nicholas Kay APRN, DON LAB_1 Performing Organization Address [facility] Phon e Number HP CONVERSION Pap Test Order (03/02/2015 8:59 AM PRODUCT ENGINEER) [facility] Method Time Signature Pap Smear Collected HP CONVERSION Monolayer tracking test Specimen Anatomical Collection Method Collection Time Receive d Time (Source) Location / / Volume Laterality 03/02/2015 8:59 AM 6 8:49 PRODUCT ENGINEER AM PRODUCT ENGINEER Nicholas Kay APRN, DON LAB_1 Performing Organization Address [facility] Phon e Number HP CONVERSION [...] contraceptives documented in this encounter Care Teams School Lunch Monitor Relationship Specialty Start Date End Date Denisse Sue DO PCP - General 05/12/13 2 [address] [place] [address] documented as of this encounter
--- OUTSIDE RECORDS SUMMARY | 2021-10-26 14:00 | XMS_ITS | Encounter Summary ---
:1985 Author Organization [facility] Address [address] [place] [address] Care Team Providers Name Role Phone Md MINA Leigh Primary Care Provider Encounter Details Date Type Department Care Team Description 04/01/2013 Imaging CTMRI Radiology MRI Left ankle pain (Primary Dx) [address] [facility] [place] [address] Social History Tobacco Use Types Packs/Day Years Used Date Smoking Tobacco: Never Assessed Sex Assigned at Date Recorded Not on file documented as of this encounter Plan of Treatment Not on filedocumented as of this encounter Procedures Procedure Name Priority Date/Time Associated Diagnosis Comme nts MR ANKLE LT W/WO IV Routine 04/01/2013 8:02 PM Left ankle pain Results for this CONT BOTTLE AND GLASS INSPECTOR procedure are i n the results section. documented in this encounter Results MR Ankle Lt W/WO IV Cont (04/01/2013 8:02 PM BOTTLE AND GLASS INSPECTOR) Anatomical Region Laterality Modality Lower Extremity, Ankle, Foot, Leg, Skeletal, Foot & Ankle Le ft Other Specimen (Source) Anatomical Location Collection Method / Collectio n Time Received Time / Laterality Volume Impressions 04/02/2013 8:08 AM BOTTLE AND GLASS INSPECTOR IMPRESSION: 1. Cystic 1.9 cm lesion superficial [...] is intact. ?? Narrative 04/02/2013 8:08 AM BOTTLE AND GLASS INSPECTOR TECHNIQUE: Multiplanar and multisequenti al images of [...] foot documented in this encounter Care Teams Document Control Clerk Relationship Specialty Start Date End Date Md Lu, PCP - General 05/26/10 05/11/13 [place] [address] documented as of this encounter
--- OUTSIDE RECORDS SUMMARY | 2021-10-26 14:00 | XMS_ITS | Encounter Summary ---
:1985 [address] [facility] Address [address] [place] [address] Care Team Providers Name Role Phone Denisse Sue Primary Care Provider Reason for Visit Reason Comments Post-Op Check Encounter Details Date Type Department Care Team Description 06/07/2013 Office Visit [facility] [address] Nurse, P3900 Pod Local ized superficial Podiatric MedSurg swelling, mass, or lump [address] (Primary [place]x) [place] [address] Social History Tobacco Use Types Packs/Day Years [...] number to call with any concerns is [phone] documented in this encounter Progress Notes Priscilla [...] Primary documented in this encounter Care Teams High School Industrial Arts Teacher Relationship Specialty Start Date End Date Denisse Sue DO PCP - General 05/12/13 04/04/16 [address] [place] [address] documented as of this encounter
--- OUTSIDE RECORDS SUMMARY | 2021-10-26 14:00 | XMS_ITS | Encounter Summary ---
:1985 Author Organization [facility] Address [address] [place] [address] Care Team Providers Name Role Phone Jie Farah DO Primary Care Provider Reason for Visit Reason Comments Refill Encounter Details Date Type Department Care Team Description 03/12/2017 [facility] Nanette Kay A PRN, IRRIGATION TAX ASSESSOR COLLECTOR Refill Obstetrics/Gynecolog y [address] [facility] 5[address] [place] [address] [place], [place] [id number] (Wo rk) Social History Tobacco Use Types [...] Department Center 04/09/2017 3:30 PM Nanette Kay, GAS DISTRIBUTION SUPERVISOR, IRRIGATION TAX ASSESSOR COLLECTOR [facility] OBG PN [facility] HOUSE LABORER Jie Sheehan RN - 03/12/2017 11:49 AM [...] 02/13/17 Prescribing provider- rice No future appointments. HOUSE LABORER documented in this encounter Plan of Treatment Not on filedocumented as of this encounter Visit Diagnoses Not on filedocumented in this encounter Care Teams Club Waiter/Waitress Relationship Specialty Start Date End Date Jie Farah DO PCP - General Family Practice 04/05/16 [address] [place] [address] documented as of this encounter
--- OUTSIDE RECORDS SUMMARY | 2021-10-26 14:00 | XMS_ITS | Encounter Summary ---
:1985 Author Organization [facility] Address [address] [place] [address] Care Team Providers Name Role Phone Md MINA Leigh Primary Care Provider Reason for Visit Reason Comments MASS Encounter Details Date Type Department Care Team Description 03/31/2013 Initial Consult [facility] [address] Elizabeth Hurtado Left ankle pain (Primary Dx); Podiatric MedSurrossy Gilliam DPM Localized superficial swelling, mass, or lump [address] [facility] [address] [facility] [address] [phone] Social History Tobacco Use Types Packs/Day Years Used Date Smoking Tobacco: Never Assessed Sex Assigned at Date Recorded Not on file documented as of this encounter Progress Notes Elizabeth Hurtado DPM - 03/31/2013 1:08 PM CST Progress Notes signed by Elizabeth Hurtado DPM at 04/05/13 1604 Author: Elizabeth Hurtado DPM Service: (none) Author Type: Physician Filed: 04/05/13 1605 Note Time: 03/31/13 1435 Status: Signed Prosthetics Assistant: Elizabeth Hurtado DPM (Physician) NAME: ODESSA CHE MR#: [id number] CSN: [id number] AUTHENTICATING CLINICIAN: Elizabeth Hurtado DPM CONFIRM #: [id number] LOC: 439 CLINIC PROGRESS NOTE DATE OF [...] hyperhidrosis. CURRENT MEDICATIONS: Reviewed and updated in [facility]. ALLERGIES: No known drug allergies. FAMILY HISTORY: [...] to discuss results. SMS:MEDQ C: CONFIRM #: [id number] T END SOFTWARE ENGINEER documented in this encounter Plan of Treatment Not on filedocumented as of this encounter Visit Diagnoses Diagnosis Left ankle pain - Primary Pain in joint, ankle and foot Localized superficial swelling, mass, or lump documented in this encounter Care Teams Granite Setter Relationship Specialty Start Date End Date Md Leigh MD PCP - General 05/26/10 05/11/13 [place] [address] documented as of this encounter
--- OUTSIDE RECORDS SUMMARY | 2021-10-26 14:00 | XMS_ITS | Encounter Summary ---
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 Past Medical History: Reviewed in [facility] Social History: Reviewed in [facility] Review of Systems: See HPI, all [...] 1-2 weeks for a recheck. Contact information [address] [facility] [id number] STAYER Cherelle Clay RN - 04/08/2015 3:32 PM CST rechecked on pt. pt states pain level now 3/10 to head. pt states feels much better. STAYER Cherelle Clay RN - 04/08/2015 3:11 PM CST pt resting on table, no distress noted. pt states migraine 8/10 now. will monitor and recheck post Zofran and Imitrex. STAYER documented in this encounter Miscellaneous Notes Medication [...] RN Oral - 04/08/15 1510 - - STAYER ED AVS Snapshot - Bob Saavedra MD - 04/08/2015 3:50 PM CST Images from the original note were not included. [facility] [address] [facility] [address] [place] [address] Dept: [phone] [email or web address] Simona Che 04/08/2015 2:41 PM Hospital Encounter Description: Female : 1985 Department: [facility] Thank you for choosing [facility] for your health care visit with Norman Liao MD. We are happy to care for you and provide this summary of your visit. Your primary primary care md is currently listed as Denisse Sue DO. HERE IS WHAT YOU NEED TO KNOW To learn how you can take steps to stay as healthy as you can be visit [email or web address] Discharge Instructions Migraine Headache: Care Instructions Your [...] Where can you learn more? Go to [employer]/Policard and enter U690 in the search box. Current as of: April 15, 2014 Content Version: 107 ?? 0034-4021 [employer]. HERE IS WHAT YOU NEED TO DO Call your clinic if: You develop new symptoms Your symptoms worsen unexpectedly You are not improving as expected You have questions about your visit or medications Follow-up Information Follow up with Denisse Sue DO. Specialty: Family Medicine Why: In the next 1-2 weeks for a recheck. Contact information: [address] [facility] [address] HERE IS INFORMATION FROM TODAY'S VISIT Reason [...] Ethnicity Preferred Language 1985 Female White Non- Vietnamese This document contains confidential information about your health and care. It is provided directlyto you for your personal, private use only. STAYER documented in this encounter Plan of Treatment [...] tried taking Excedrin migraine with no relief. STAYER documented in this encounter Care Teams Spice Room Worker Relationship Specialty Start Date End Date Denisse Sue DO PCP - General 05/12/13 2 [address] [place] [address] documented as of this encounter
--- OUTSIDE RECORDS SUMMARY | 2021-10-26 14:00 | XMS_ITS | Encounter Summary ---
:1985 Author Organization [facility] Address [address] [place] [address] Care Team Providers Name Role Phone MireilleJie jones Shweta ZARAGOZA Primary Care Provider Reason for Visit Reason Comments Refill [place] Encounter Details Date Type Department Care Team Description 02/12/2017 [facility] Nicholas Kay A PRN, PIPELINES SUPERINTENDENT Refill ([facility]) Obstetrics/Gynecolog y [address] [facility] 5th [place] [address] [place], [place] [phone] (Wo rk) Social History Tobacco Use Types [...] Provider: NICHOLAS KAY Ordering User: RUIZ RENEE BOX OPERATOR documented in this encounter Plan of Treatment Not on filedocumented as of this encounter Visit Diagnoses Not on filedocumented in this encounter Care Teams Sheet Metal Worker Maintenance Relationship Specialty Start Date End Date Jie Farah DO PCP - General Family Practice 04/05/16 [address] [place] [address] documented as of this encounter
--- OUTSIDE RECORDS SUMMARY | 2021-10-26 14:00 | XMS_ITS | Encounter Summary ---
:1985 Author Organization [facility] Address [address] [place] [address] Care Team Providers Name Role Phone Denisse Sue DO Primary Care Provider Reason for Visit Reason Comments PRE-OP EXAM Encounter Details Date Type Department Care Team Description 05/12/2013 Pre-Op Visit [place] [address] Denisse Sue DO Preop examination (Primary Dx); Family Medicine [address] Anemia [address] [facility] [place] [id number] [phone] Social History Tobacco Use Types Packs/Day Years [...] Sue DO Primary care physician: Denisse Sue [phone] CHIEF COMPLAINT Pre-Operative Evaluation ANTICIPATED PROCEDURE Left [...] Past Surgical History Procedure Laterality Date ??? [place] tooth extraction Family History Problem Relation Age [...] Concern Simona Che is a patient at [facility]. For health reasons Kimberley would benefit from an ergonomic standing desk. Please feel free to contact me with any further questions. Comments: [place] DO E BRICK MOLDER documented in this encounter Plan of Treatment Not on filedocumented as of this encounter Visit Diagnoses Diagnosis Preop examination - Primary Preoperative examination, unspecified Anemia Anemia, unspecified documented in this encounter Care Teams Ships Equipment Engineer Relationship Specialty Start Date End Date Denisse Sue DO PCP - General 05/12/13 04/04/16 [address] [place] [address] documented as of this encounter
--- OUTSIDE RECORDS SUMMARY | 2021-10-26 14:00 | XMS_ITS | Encounter Summary ---
:1985 Author Organization [facility] Address [address] [place] [address] Care Team Providers Name Role Phone Denisse Sue DO Primary Care Provider Reason for Visit Reason Comments Contraception Encounter Details Date Type Department Care Team Description 09/26/2014 [facility] Nanette Kay, Other bret al Obstetrics/Gynecolog [facility] counseling and advice y [address] for contraceptive [address] [facility] 5th Floor management ([place], [place] Dx ) [phone] (Wo rk) Social History Tobacco Use Types [...] cycle of pills, please contact me at [phone] or through [facility] to review options. Take care Kimberley. documented [...] Past Surgical History Procedure Laterality Date ??? [place] tooth extraction History Social History ??? Marital [...] cycle of pills, please contact me at [phone] or through [facility] to review options. Take care Kimberley. The patient was discharged ambulatory and in stable condition. documented in this encounter Plan of Treatment Not on filedocumented as of this encounter Visit Diagnoses Diagnosis Other general counseling and advice for contraceptive management - Primary documented in this encounter Care Teams Hand Stripper Relationship Specialty Start Date End Date Denisse Sue DO PCP - General 05/12/13 04/04/16 [address] [place] [address] documented as of this encounter
--- OUTSIDE RECORDS SUMMARY | 2021-10-26 14:00 | XMS_ITS | Encounter Summary ---
:1985 Author Organization [facility] Address [address] [place] [address] Care Team Providers Name Role Phone Md MINA Leigh Primary Care Provider Reason for Visit Reason Comments Annual Exam Encounter Details Date Type Department Care Team Description 07/30/2012 Office Visit [facility] [address], Routine general medical examination at a health care facility (Primary Dx); Obstetrics/Gynecolog y ASSISTANT PROFESSOR OF COMMUNICATION, TELEVISION PRODUCTION ASSISTANT Screening for malignant neoplasm of the cervix; [address] [place] [address] Special screening examination for unspec ified chlamydial disease; [address] [facility] 5th Floor Screening for iron deficiency anemia; [place], [place] reening for lipoid disorders; [id number] Need for Tdap vaccination; [phone] (Wo rk) Special screening examination for other [...] AM CDT Thank you for enrolling in [employer]. Please follow the instructions below to securely access your online medical record. [employer] allows you to send messages to your doctor, view your test results, renewyour prescriptions, schedule appointments, and more. How Do I Sign Up? 1. In your Internet browser, go to: [email or web address] 2. Click on the Sign Up Now link in the Sign In box. You will see the New Member Sign Up page. 3. Enter your [employer]nEase Access Code exactly as it appears below. You will not need to use this code after you???ve completed the sign-up process. If you do not sign up before the expiration date, you must request a new code. [employer] Access Code: [email or web address] Expires: 08/29/2012 11:05 AM 4. Enter your Social Security Number ([id number]) and Date of (mm/dd/yyyy) as indicated and click Submit. You will be taken to the next sign- up page. 5. Create a TournEase ID. This will be your TournEase login ID and cannot be changed, so think of one that is secure and easy to remember. 6. Create a TournEase password. You can change your password at any time. 7. Enter your Password Reset Question and Answer. This can be used at a later time if you forget your password. 8. Enter your e-mail address. You will receive e-mail notification when new information is availablein [employer]Ease. 9. Click Sign Up. You can now view your medical record. Additional Information If you have questions, you can call [phone] to talk to our Tourn[employer] staff. Remember, [employer] is NOT to be used for urgent [...] they are available. Please contact me at [phone] if questions. documented in this encounter Progress [...] Past Surgical History Procedure Laterality Date ??? Gilbert tooth extraction Family History: Family History Problem [...] Order Specific Question: Ordering Provider? (, Miladys, GAMER, or PA Only) Answer: NICHOLAS KAY [[id number]] ??? Tdap (BOOSTRIX) ??? Pap Smear Screening [PAPL] Order Specific Question: Ordering Provider? (Miladys Almonte, GAMER, or PA Only) Answer: NICHOLAS KAY [[id number]] Order Specific Question: Is the required paper requisition completed? Answer: Yes ??? Complete Blood Count - No Diff [ABC] Standing Status: Future Number of Occurrences: 1 Standing Expiration Date: 07/30/2013 Order Specific Question: Ordering Provider? (Miladys Almonte, GAMER, or PA Only) Answer: NICHOLAS KAY [[id number]] ??? Ferritin [ISACC] Standing Status: Future Number of Occurrences: 1 Standing Expiration Date: 07/30/2013 Order Specific Question: Ordering Provider? (Miladys Almonte, GAMER, or PA Only) Answer: NICHOLAS KAY [[id number]] ? ? Cholesterol, Total & HDL [CHS] Standing Status: Future Number of Occurrences: 1 Standing Expiration Date: 07/30/2013 Order Specific Question: Ordering Provider? (Miladys Almonte, GAMER, or PA Only) Answer: NICHOLAS KAY [[id number]] ??? HIV Antibody [HIV] Standing Status: Future Number of Occurrences: 1 Standing Expiration Date: 07/30/2013 Order Specific Question: Ordering Provider? (Miladys Almonte, GAMER, or PA Only) Answer: NICHOLAS KAY [[id number]] ??? Treponemal Antibody Standing Status: Future Number of Occurrences: 1 Standing Expiration Date: 07/30/2013 Order Specific Question: Ordering Provider? (Miladys Almonte, GAMER, or PA Only) Answer: NICHOLAS KAY [[id number]] ??? Hepatitis Bs Antigen [HBAG] Standing Status: Future Number of Occurrences: 1 Standing Expiration Date: 07/30/2013 Order Specific Question: Ordering Provider? (, Res, GAMER, or PA Only) Answer: NICHOLAS KAY [[id number]] ??? Hepatitis C Antibody [HCAB] Standing Status: Future Number of Occurrences: 1 Standing Expiration Date: 07/30/2013 Order Specific Question: Ordering Provider? (, Res, GAMER, or PA Only) Answer: NICHOLAS KAY [[id number]] ??? Urinalysis Routine Hold Culture (URH) Standing Status: Future Number of Occurrences: 1 Standing Expiration Date: 07/30/2013 Order Specific Question: Ordering Provider? (, Res, GAMER, or PA Only) Answer: NICHOLAS KAY [[id number]] Order Specific Question: Urine Collection Type Answer: Urine:clean catch ??? Pap Smear Patient Instructions Thank you for enrolling in [employer]. Please follow the instructions below to securely access your online medical record. [employer] allows you to send messages to your doctor, view your test results, renewyour prescriptions, schedule appointments, and more. How Do I Sign Up? 1. In your Internet browser, go to: [email or web address] 2. Click on the Sign Up Now link in the Sign In box. You will see the New Member Sign Up page. 3. Enter your [employer]nEase Access Code exactly as it appears below. You will not need to use this code after you???ve completed the sign-up process. If you do not sign up before the expiration date, you must request a new code. [employer]Ease Access Code: [email or web address] Expires: 08/29/2012 11:05 AM 4. Enter your Social Security Number (xxx-[id number]) and Date of (mm/dd/yyyy) as indicated and click Submit. You will be taken to the next sign- up page. 5. Create a TournEase ID. This will be your TournEase login ID and cannot be changed, so think of one that is secure and easy to remember. 6. Create a TournEase password. You can change your password at any time. 7. Enter your Password Reset Question and Answer. This can be used at a later time if you forget your password. 8. Enter your e-mail address. You will receive e-mail notification when new information is availablein TournEase. 9. Click Sign Up. You can now view your medical record. Additional Information If you have questions, you can call [phone] to talk to our TournEase staff. Remember, TournEase is NOT to be used for urgent [...] they are available. Please contact me at [phone] if questions. Current Control:N/A documented in this [...] Component Value Ref Test [facility] Range Method Time Signature [...] Kay APRN, CNP LAB_1 Performing Organization Address [facility] Phon e Number HP CONVERSION Pap Smear (07/30/2012 12:02 PM CDT) Specimen (Source) Anatomical Collection Method Collection Time Re ceived Time Location / / Volume Laterality 07/30/2012 12:02 PM CDT Narrative HP CONVERSION - 08/04/2012 3:57 PM CDT FINAL GYNECOLOGICAL CYTOLOGY REPORT Pathology #: [id number] ?Date Obtained: 07/30/2012 ? Date Received: 07/31/2012 INTERPRETATION/RESULTS: Negative for Intraepithelial Lesion or M alignancy SPECIMEN ADEQUACY: Satisfactory for Evaluation. ??Endocervi bre cells/transformation zone component present. Verified on 08/04/2012 ??by JOES C SALMON(ASCP) (electronic signature) CLINICAL NOTES: ?LMP: [...] Kay APRN, CNP LAB_1 Performing Organization Address [facility] Phon e Number HP CONVERSION Pap Smear Screening (07/30/2012 12:02 PM CDT) P athologist Signature PAP Routine Collected HP CONVERSION Specimen Anatomical Collection Method Collection Time Receive d Time (Source) Location / / Volume Laterality 07/30/2012 12:02 07/31/2012 5:33 PM CDT AM CDT Nicholas Kay APRN, CNP LAB_1 Performing Organization Address [facility] Phon e Number HP CONVERSION documented in this encounter Visit Diagnoses Diagnosis Routine general medical examination at a health care facility - Primary Screening for malignant neoplasm of the cervix Special screening examination for unspec ified chlamydial disease Screening for iron deficiency anemia Screening for lipoid disorders Need for Tdap vaccination Need for prophylactic vaccination with c ombined bkhpctlnno-cszbbia-wlrntfabl (DTP) vaccine Special screening examination for other specified viral diseases Bloating Flatulence, eructation, and gas pain Urinary urgency Urgency of urination documented in this encounter Care Teams Electronic Train Control Technician Relationship Specialty Start Date End Date Md Leigh MD PCP - General 05/26/10 05/11/13 [place] [address] documented as of this encounter
--- OUTSIDE RECORDS SUMMARY | 2021-10-26 14:00 | XMS_ITS | Encounter Summary ---
:1985 Author Organization [facility] Address [address] [place] [address] Care Team Providers Name Role Phone Md MINA Leigh Primary Care Provider Encounter Details Date Type Department Care Team Description 07/30/2012 Lab Visit [facility] [address] Screening for iron deficiency anemia; Laboratory Screening for lipoid disorde rs; [address] Special screening examinatio n for other specified viral diseases; [place] [address] Urinary urgency [phone] Social History Tobacco Use Types Packs/Day Years [...] MICRO/CULTURE IF POS (07/30/2012 12:11 PM CDT) [facility] Method Time Signature Urine Type Urine:clean HP [...] U Specific 1.010 1.005 - HP CONVERSION Morse 1.030 Urobilinogen Negative Negative HP CONVERSION Urine Eu/dL Specimen Anatomical Collection Method Collection Time Receive d Time (Source) Location / / Volume Laterality Urine: 07/30/2012 12:11 07/30/2012 PM CDT 12:11 PM CDT Narrative HP CONVERSION - 07/30/2012 12:31 PM CDT Performed at [facility], [address] [place] [address] Nanette Kay APRN, CNP LAB_1 Performing Organization Address City/[facility] Code Phon e Number HP CONVERSION Hepatitis C Antibody, with Reflex (07/30/2012 12:11 PM CDT) [facility] Perosphere Method Time Signature Hepatitis C Non-React Non-Reacti HP CONVERSION Antibody ve Specimen Anatomical Collection Method Collection Time Receive d Time (Source) Location / / Volume Laterality 07/30/2012 12:11 07/30/2012 1:32 PM CDT PM CDT Nanette Kay APRN, CNP LAB_1 Performing Organization Address [facility] Phon e Number HP CONVERSION Hep B Surface Antigen, No Reflex (07/30/2012 12:11 PM CDT) Analysis Performed At Patho logist Time Signature Hep B Surf Ag Negative Negative HP CONVERSION Specimen Anatomical Collection Method Collection Time Receive d Time (Source) Location / / Volume Laterality 07/30/2012 12:11 07/30/2012 1:32 PM CDT PM CDT Nanette Kay APRN, CNP LAB_1 Performing Organization Address City/[facility]/ZIP Code Phon e Number HP CONVERSION Treponema Screen (07/30/2012 12:11 PM CDT) [facility] gist Method Time Signature Treponema Non Reactive Non Reactive HP CONVERSION Screen Specimen Anatomical Collection Method Collection Time Receive d Time (Source) Location / / Volume Laterality 07/30/2012 12:11 07/30/2012 1:33 PM CDT PM CDT Nanette Kay APRN, CNP LAB_1 Performing Organization Address [facility] Code Phon e Number HP CONVERSION HIV ANTIBODY (07/30/2012 12:11 PM CDT) athologist Signature HIV 1/HIV 2 Non-React Non-Reacti HP CONVERSION ve Specimen Anatomical Collection Method Collection Time Receive d Time (Source) Location / / Volume Laterality 07/30/2012 12:11 07/30/2012 1:32 PM CDT PM CDT Nanette Kay APRN, CNP LAB_1 Performing Organization Address [facility] Code Phon e Number HP CONVERSION Cholesterol, [...] - 07/30/2012 12:43 PM CDT Performed at [facility], [address] [place] [address] Nanette Kay APRN, CNP LAB_1 Performing Organization Address City/[facility]/ZIP Code Phon e Number HP CONVERSION (ABNORMAL) Ferritin (07/30/2012 12:11 PM CDT) athologist Signature Ferritin Serum 4 (L) 10 - 291 HP CONVERSION ng/mL Specimen Anatomical Collection Method Collection Time Receive d Time (Source) Location / / Volume Laterality 07/30/2012 12:11 07/30/2012 1:32 PM CDT PM CDT Nanette Kay APRN, CNP LAB_1 Performing Organization Address [facility] Phon e Number HP CONVERSION (ABNORMAL) Hemogram/Plts (07/30/2012 12:11 PM CDT) [facility] gist Method Time Signature White Blood [...] - 07/30/2012 12:22 PM CDT Performed at [facility], [address] [place] [address] Nanette Kay APRN, CNP LAB_1 Performing Organization Address [facility] Phon e Number HP CONVERSION documented in this encounter Visit Diagnoses Diagnosis Screening for iron deficiency anemia Screening for lipoid disorders Special screening examination for other specified viral diseases Urinary urgency Urgency of urination documented in this encounter Care Teams Traffic Agent Relationship Specialty Start Date End Date Md Leigh MD PCP - General 05/26/10 05/11/13 [place] [address] documented as of this encounter
--- OUTSIDE RECORDS SUMMARY | 2021-10-26 14:00 | XMS_ITS | Encounter Summary ---
:1985 Author Organization [facility] Address [address] [place] [address] Care Team Providers Name Role Phone Denisse Sue Primary Care Provider Reason for Visit Reason Comments Refill Encounter Details Date Type Department Care Team Description 05/19/2015 [facility] Nanette Kay A PRN, CNP Refill Obstetrics/Gynecolog y [address] [facility] 5th [place] [address] [place], [place] [address] (Wo rk) Social History Tobacco Use Types [...] to switch pharmacies [facility] [place] and they will call [facility] [address] (which is where your prescription was sent) and they will transfer it. Thank you! Loulou Snyder SCRAP DEALER Triage ----- Message ----- From: ODESSA CHE Sent: 05/19/2015 6:56 AM CDT To: Nanette Kay APRN, CNP Subject: Medication Renewal Request Original authorizing provider: Nanette Kay APRN, TEAM PRIMARY CARE PHYSICIAN Odessa Che would like a refill of the following medications: norethindrone-ethinyl estradiol (MICROGESTIN FE 03/15, ,) 1 mg-20 mcg (21)/75 mg (7) per tablet [Nanette Kay APRN, DON] Preferred pharmacy: [facility] [address] [place] [address] [facility] Comment: documented in this encounter Plan of Treatment Not on filedocumented as of this encounter Visit Diagnoses Not on filedocumented in this encounter Care Teams Chef'S Assistant Relationship Specialty Start Date End Date Denisse Sue DO PCP - General 05/12/13 04/04/16 [address] [place], [place] [address] documented as of this encounter
--- OUTSIDE RECORDS SUMMARY | 2021-10-26 14:00 | XMS_ITS | Encounter Summary ---
:1985 Author Organization [facility] Address [address] [place] [address] Care Team Providers Name Role Phone Denisse Sue DO Primary Care Provider Encounter Details Date Type Department Care Team Description 05/12/2013 Lab Visit [facility] [address] L aboratory Anemia [address] [facility] [place] [address] Social History Tobacco Use Types [...] - 05/12/2013 8:23 AM CDT Performed at [facility], [address] [place] [address] Denisse Sue DO LAB_1 Performing Organization Address City/State/ZIP Code Phon e Number HP CONVERSION documented in this encounter Visit Diagnoses Diagnosis Anemia Anemia, unspecified documented in this encounter Care Teams Auto Garage Attendant Relationship Specialty Start Date End Date Denisse Sue DO PCP - General 05/12/13 [address] [place] [address] documented as of this encounter
--- OUTSIDE RECORDS SUMMARY | 2021-10-26 14:00 | XMS_ITS | Encounter Summary ---
:1985 Author Organization [employer] 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
--- OUTSIDE RECORDS SUMMARY | 2021-10-26 14:00 | XMS_ITS | Encounter Summary ---
:1985 [facility] Address [address] [place] [address] Care Team Providers Name Role Phone Md MINA Leigh Primary Care Provider Reason for Visit Reason Comments INJURY, KNEE Encounter Details Date Type Department Care Team Description 10/31/2011 [facility] Visit [facility] [place] MD Elliott patella (Primary Dx) [address] [place] [address] [place], [place] [phone] [address] (Wo rk) Social History Tobacco Use Types Packs/Day Years Used Date Smoking Tobacco: Never Assessed Sex Assigned at Date Recorded Not on file documented as of this encounter Progress Notes Angelica Thomas MD - 10/31/2011 4:48 PM CDT Progress Notes signed by Angelica Thomas MD at 11/06/11 7430 Author: Angelica Thomas MD Service: (none) Author Type: Physician Filed: 11/06/11 1625 Note Time: 10/31/11 1648 Status: Signed Fire Sprinkler Apparatus Inspector: Angelica Thomas MD (Physician) NAME: ODESSA CHE VISIT: [id number] DICTATING CLINICIAN: ANGELICA THOMAS MD JOB: [id number] Med JOB: [id number] LOC: 3711 CLINIC PROGRESS NOTE DATE OF [...] the bike and recently on the elliptical new product trainer with no symptoms. OBJECTIVE: There is [...] and symptoms to monitor. We also discussed technician terminal and repeater outcomes may be affected by this injury [...] Primary documented in this encounter Care Teams Retail Sales Teammate Relationship Specialty Start Date End Date Md Lu, MD PCP - General 05/26/10 05/11/13 [place] [address] documented as of this encounter
--- OUTSIDE RECORDS SUMMARY | 2021-10-26 14:00 | XMS_ITS | Encounter Summary ---
:1985 Author Organization [employer] Address [address] [place] [address] Care Team Providers Name Role Phone Linette, Denisse Mane DO Primary Care Provider Reason for Visit Reason Comments Dysuria Encounter Details Date Type Department Care Team Description 09/25/2014 Hospital Encounter [facility] Yancy Isaac, Dysuria [address] [place] [address] [facility] [address] [facility] [phone] [place], [place] [address] (Wo rk) Social History Tobacco Use Types [...] (A) Collection Time Result Time U Specific [place] Urobilinogen Urine 09/25/14 08:54:00 09/25/14 09:09:00 1.020 Negative Final result Narrative: Performed at [facility], [address] [place] [id number] Urine Microscopic: (Final result) Abnormal Component (Lab [...] from the original note were not included. [facility] 4[address] [facility] [address] [place] [phone] Dept: [phone] [email or web address] Simona Che 09/25/2014 8:54 AM Hospital Encounter Description: Female : 1985 Department: [facility] Dept Thank you for choosing [facility] for your health care visit with Yancy Isaac MD. We are happy to care for you and provide this summary of your visit. Your primary healthcare market consultant is currently listed as Denisse Sue DO (General). HERE IS WHAT YOU NEED TO KNOW To learn how you can take steps to stay as healthy as you can be visit [email or web address] Discharge Instructions Painful Urination (Dysuria): After [...] Where can you learn more? Go to [employer]/Forrst and enter H814 in the search box. Current as of: November 02, 2013 Content Version: 10.4 ?? [id number] [employer]. HERE IS WHAT YOU NEED TO DO Call your clinic if: You develop new symptoms Your symptoms worsen unexpectedly You are not improving as expected You have questions about your visit or medications Future Appointments Provider Department Dept Phone 09/26/2014 3:00 PM Nanette Kay APRN, MEDICAL LIBRARIAN [facility] Obstetrics/Gynecology [phone] Please arrive 15 minutes early with your [...] 100 Neg - Trace mg/dL U Specific [place] 1.020 1.005 - 1.030 Urobilinogen Urine Negative [...] Ethnicity Preferred Language 1985 Female White Non- Pakistani This document contains confidential information about your [...] (ABNORMAL) Urine Culture (09/25/2014 9:30 AM CDT) [facility] Method Time Signature Source Urine [...] - 09/27/2014 6:06 AM CDT Performed at [facility] , ??[address] [place] [address], ?? CLIA Number [id number] Transcriptions 09/25/2014 9:30 AM CDTNotes Recorded by [...] Yancy Isaac MD LAB_1 Performing Organization Address City/[facility] Phon e Number HP CONVERSION (ABNORMAL) URINE MICROSCOPIC (09/25/2014 8:54 AM CDT) [facility] Method Time Signature Urine WBC 5-9 (A) [...] - 09/25/2014 9:11 AM CDT Performed at [place] [address] Yancy Isaac MD LAB_1 Performing Organization Address [facility] Phon e Number HP CONVERSION (ABNORMAL) URINALYSIS ROUTINE(MICRO IF POS) (09/25/2014 8:54 AM CDT) [facility] Method Time Signature Urine Type [...] U Specific 1.020 1.005 - HP CONVERSION [place] 1.030 Urobilinogen Negative Negative HP CONVERSION Urine Eu/dL Specimen Anatomical Collection Method Collection Time Receive d Time (Source) Location / / Volume Laterality Urine: 09/25/2014 8:54 AM 5 9:03 CDT AM CDT Narrative HP CONVERSION - 09/25/2014 9:09 AM CDT Performed at [facility], [address] [place] [address] Yancy Isaac MD LAB_1 Performing Organization Address [...] pills documented in this encounter Care Teams Repairer Evaporator Relationship Specialty Start Date End Date Denisse Sue, PCP - General 05/12/13 2 [address] [place] [address] documented as of this encounter
--- OUTSIDE RECORDS SUMMARY | 2021-10-26 14:00 | XMS_ITS | Encounter Summary ---
:1985 Author Organization [facility] Address [address] [place] [address] Care Team Providers Name Role Phone Denisse Sue Mane DO Primary Care Provider Reason for Visit Reason Comments Annual Exam Encounter Details Date Type Department Care Team Description 03/04/2016 [facility] Visit [facility] Nanette Kay Well female exam with routine gynecological exam (Primary Dx); Obstetrics/Gynecolog POMOLOGIST, PATIENT SVCS MGR Oral contraceptive pill surveillance; y [address] Migraine without aura and with status mi grainosus, not intractable [address] [facility] 5th [place] [phone] (Wo rk) Social History Tobacco Use Types [...] Comments Blood Pressure 120/77 03/04/2016 9:31 AM FIRE CREW SPECIALIST Pulse 78 03/04/2016 9:31 AM FIRE CREW SPECIALIST Temperature - - Respiratory Rate - - Oxygen Saturation - - Inhaled Oxygen Concentration - - Weight 53.4 kg (117 lb 11.2 oz) 03/04/2016 9:31 AM FIRE CREW SPECIALIST Height 168.3 cm (5' 6.25) 03/04/2016 9:31 AM FIRE CREW SPECIALIST Body Mass Index 18.85 03/04/2016 9:31 AM FIRE CREW SPECIALIST documented in this encounter Patient Instructions Patient InstructionsNanette Kay APRN, CNP - 03/04/2016 9:54 AM CST Thank you for coming in today [facility] for your Well Visit. No pap smear was indicated, you had a normal pap smear/negative HPV. Your next pap smear is due in 2019. Yearly physical exams are still recommended. I recommend you check [facility]- Find A Provider- to identify another M.D. [...] you have additional questions or concerns at [phone] or SendMe. CREW SPECIALIST documented in this encounter Progress Notes Nanette [...] Past Surgical History Procedure Laterality Date ??? [place] teeth extraction ??? Foot surgery 2012 Family [...] are still recommended. I recommend you check [facility]- Find A Provider- to identify another M.D. [...] you have additional questions or concerns at [phone] or SendMe. Current Control:03/15 CREW SPECIALIST documented in this encounter Plan of Treatment [...] migrainosus documented in this encounter Care Teams Supervisor Cap And Hat Production Relationship Specialty Start Date End Date Denisse Sue DO PCP - General 05/12/13 04/04/16 [address] [place], [place] [phone] documented as of this encounter
--- OUTSIDE RECORDS SUMMARY | 2021-10-26 14:00 | XMS_ITS | Encounter Summary ---
:1985 Author Organization [facility] Address [address] [place] [address] Care Team Providers Name Role Phone Md MINA Leigh Primary Care Provider Reason for Visit Reason Comments Follow-up Encounter Details Date Type Department Care Team Description 09/10/2011 Office Visit [facility] Angelica Quiroz of [place] MD Elliott patella (Primary Dx) [address] [place] [address] [place], [place] [phone] (Wo rk) Social History Tobacco Use Types Packs/Day Years Used Date Smoking Tobacco: Never Assessed Sex Assigned at Date Recorded Not on file documented as of this encounter Progress Notes Angelica Thomas MD - 09/10/2011 3:42 PM CDT Progress Notes signed by Angelica Thomas MD at 09/12/11 1495 Author: Angelica Thomas MD Service: (none) Author Type: Physician Filed: 09/12/111718 Note Time: 09/10/11 1542 Status: Signed Police Sergeant: Angelica Thomas MD (Physician) NAME: ODESSA TELLEZ VISIT: [id number] DICTATING CLINICIAN: ANGELICA THOMAS MD JOB: [id number] Med JOB: [id number] LOC: 3711 CLINIC PROGRESS NOTE DATE OF [...] Primary documented in this encounter Care Teams Litigation Coordinator Relationship Specialty Start Date End Date Md Leigh MD PCP - General 05/26/10 05/11/13 [place] [address] documented as of this encounter
--- OUTSIDE RECORDS SUMMARY | 2021-10-26 14:00 | XMS_ITS | Encounter Summary ---
:1985 Author Organization [facility] Address [address] [place] [address] Care Team Providers Name Role Phone Denisse Sue Primary Care Provider Reason for Visit Reason Comments Post-Op Check Encounter Details Date Type Department Care Team Description 05/31/2013 Office Visit [facility] 3900 Nurse, P3900 Pod Local ized superficial Podiatric MedSurg swelling, mass, or lump [address] (Primary Dx) [place] [address] Social History Tobacco Use Types Packs/Day Years [...] number to call with any concerns is [phone] documented in this encounter Progress Notes Priscilla [...] Primary documented in this encounter Care Teams Wall Man Relationship Specialty Start Date End Date Denisse Sue DO PCP - General 05/12/13 04/04/16 [address] [place] [address] documented as of this encounter
--- OUTSIDE RECORDS SUMMARY | 2021-10-26 14:00 | XMS_ITS | Encounter Summary ---
:1985 Author Organization [facility] Address [address] [place] [address] Care Team Providers Name Role Phone Md MINA Leigh Primary Care Provider Reason for Referral Specialty Diagnoses / Procedures Referred By Contact Refer red To Contact Barbara Gamino AP RN, GAMER [address] [place], [place] [address] Referral ID Status Reason Start Date Expiration Date Visits Requ ested Visits Authorized NDER Reason for Visit Reason Comments Skin Check Encounter Details Date Type Department Care Team Description 01/29/2012 Procedure Visit [facility] 3800 Karen Lester APRN , Skin Check Dermatology GAMER [facility] [facility] [address] [place], [place] [address] [address] [place], [place] [phone] (Wo rk) Social History Tobacco Use Types Packs/Day Years Used Date Smoking Tobacco: Never Assessed Sex Assigned at Date Recorded Not on file documented as of this encounter Progress Notes Karen Lester APRN, CNP - 01/29/2012 5:19 PM CST Progress Notes signed by JOHN Olmstead at 01/31/12 758 Author: JOHN Olmstead Service: (none) Author Type: Nurse Practitioner Filed: 01/31/12749 Note Time: 01/29/121718 Status: Signed Machine Stoppage Frequency Checker: Karen Trevon V., ANP (Nurse Practitioner) NAME: ODESSA CHE MR#: [id number] CSN: [id number] AUTHENTICATING CLINICIAN: JOHN Burgos CONFIRM #: [id number] LOC: 427 CLINIC PROGRESS NOTE DATE OF [...] has further concerns. NVR:MEDQ C: CONFIRM #: [id number] NDER Karen Lester APRN, CNP - 01/29/2012 5:16 [...] glands documented in this encounter Care Teams Fork Truck Operator Relationship Specialty Start Date End Date Md Leigh MD PCP - General 05/26/10 05/11/13 [place] [address] documented as of this encounter
--- OUTSIDE RECORDS SUMMARY | 2021-10-26 14:00 | XMS_ITS | Encounter Summary ---
:1985 Author Organization [facility] Address [address] [place] [address] Care Team Providers Name Role Phone Md MINA Leigh Primary Care Provider Reason for Visit Reason Comments Lab Draw Encounter Details Date Type Department Care Team Description 02/19/2012 Telephone [facility] Cannon Consuelo oLpez MD Lab Draw [address] [facility] [address] [place] [address] [place], [place] [phone] (Wo rk) Social History Tobacco Use Types [...] by Nanette Bravo N.P. who has left [facility]. Also requested that pt call us back and let us know if plans on getting lab done. documented in this encounter Plan of Treatment Not on filedocumented as of this encounter Visit Diagnoses Not on filedocumented in this encounter Care Teams Telephone Claims Representative Relationship Specialty Start Date End Date Md Leigh MD PCP - General 05/26/10 05/11/13 [place] [address] documented as of this encounter
--- OUTSIDE RECORDS SUMMARY | 2021-10-26 14:00 | XMS_ITS | Encounter Summary ---
:1985 Author Organization [facility] [employer] [facility] Address [address] [place] [address] Care Team Providers Name Role Phone Jie Farah DO Primary Care Provider Reason for Visit Reason Comments PAIN, SINUS Encounter Details Date Type Department Care Team Description 04/07/2017 Hospital Encounter [facility] Justine Winn, Acute sinusitis with Care PA-C symptoms > 10 days [address] [address] [phone] Social History Tobacco Use Types Packs/Day Years [...] Comments Blood Pressure 118/80 04/07/2017 5:36 PM MARKETING MGR Pulse 60 04/07/2017 5:36 PM MARKETING MGR Temperature 36.8 ??C (98.3 ??F) 04/07/2017 5:36 PM MARKETING MGR Respiratory Rate 16 04/07/2017 5:36 PM MARKETING MGR Oxygen Saturation - - Inhaled Oxygen Concentration [...] ER right away for recheck if concerns. ETING MGR AttachmentsThe following attachments cannot be sent through Care Everywhere. SINUSITIS (AMHARIC)documented in this encounter Medications at Time of [...] for recheck if concerns. Discharge References/Attachments SINUSITIS (AMHARIC) ETING MGR documented in this encounter Plan of Treatment Not on filedocumented as of this encounter Visit Diagnoses Diagnosis Acute sinusitis with symptoms > 10 days Acute sinusitis, unspecified Triage Assessment Note - Katelyn Neil RN - 04/07/2017 5:34 PM CST C/o sinus pain, congestion, decreased smell sensation. Sx started Sat. ETING MGR documented in this encounter Care Teams Personal Lines Appraiser Relationship Specialty Start Date End Date Jie Farah DO PCP - General Family Practice 04/05/16 [address] [place] [address] documented as of this encounter
--- OUTSIDE RECORDS SUMMARY | 2021-10-26 14:00 | XMS_ITS | Encounter Summary ---
:1985 [facility] [address] [facility] Address [address] [place] [address] Care Team Providers Name Role Phone Linette, Denisse Mane ZARAGOZA Primary Care Provider Reason for Visit Reason Comments Post-Op Check Encounter Details Date Type Department Care Team Description 06/21/2013 Office Visit [facility] 3900 Elizabeth Hurtado toperative Podiatric MedSurg FAN Gilliam follow-up (Primary Dx) [address] [place] [address] [facility] [place] [phone] (Wo rk) Social History Tobacco Use Types Packs/Day Years Used Date Smoking Tobacco: Never Assessed Sex Assigned at Date Recorded Not on file documented as of this encounter Progress Notes Elizabeth Hurtado DPM - 06/21/2013 8:33 AM CDT Progress Notes signed by Elizabeth Hurtado DPM at 06/22/131621 Author: Elizabeth Hurtado DPM Service: (none) Author Type: Physician Filed: 06/22/131621 Note Time: 06/21/132144 Status: Signed Medical Front Desk Specialist: Elizabeth Hurtado DPM (Physician) NAME: ODESSA CHE MR#: [id number] CSN: [id number] AUTHENTICATING CLINICIAN: Elizabeth Hurtado DPM CONFIRM #: [id number] LOC: 439 CLINIC PROGRESS NOTE DATE OF [...] in Epic. ALLERGIES: Reviewed and updated in [facility]. OBJECTIVE: Incision line is well healed. Centrally [...] some scar tissue massage or use an decz-mxn-xzmmocq scar product such as a silicone gel product. In 2 weeks or so, she can gradually transfer to a regular shoe. No high-impact running or jumping activities for at least another month. Recheck with me in 1 month for reevaluation. SMS:MEDQ C: CONFIRM #: [id number] documented in this encounter Plan of Treatment Not on filedocumented as of this encounter Visit Diagnoses Diagnosis Postoperative follow-up - Primary Follow-up examination, following unspeci fied surgery documented in this encounter Care Teams Field Service Rep Relationship Specialty Start Date End Date Denisse Sue DO PCP - General 05/12/13 04/04/16 [address] [place] [address] documented as of this encounter
--- OUTSIDE RECORDS SUMMARY | 2021-10-26 14:01 | XMS_ITS | Encounter Summary ---
:1985 Author Organization [facility] Address [address] [place] [address] Care Team Providers Name Role Phone Md MINA Leigh Primary Care Provider Encounter Details Date Type Department Care Team Description 03/31/2010 PN Conversion Only [facility] [address], [address] [place] [address] [place], [place] [phone] (Wo rk) Social History Tobacco Use Types Packs/Day Years Used Date Smoking Tobacco: Never Assessed Sex Assigned at Date Recorded Not on file documented as of this encounter Plan of Treatment Not on filedocumented as of this encounter Procedures Procedure Name Priority Date/Time Associated Comments Diagnosis SEXUALLY TRANSMITTED Routine 03/31/2010 9:50 AM R esults for this DISEASE PROBE SHRIMP PICKER procedure are in the results section. COMPLETE BLOOD Routine 03/31/2010 9:50 AM Results for this COUNT-W/DIFF SHRIMP PICKER procedure are i n the results section. DIFFERENTIAL Routine 03/31/2010 9:50 AM Results f or this SHRIMP PICKER procedure are i n the results section. WET PREP Routine 03/31/2010 9:40 AM Results f or this SHRIMP PICKER procedure are i n the results section. URINE MICROSCOPIC Routine 03/31/2010 8:48 AM Resu lts for this SHRIMP PICKER procedure are i n the results section. URINALYSIS Routine 03/31/2010 8:48 AM Results f or this ROUTINE(MICRO IF POS) SHRIMP PICKER proced ure are in the results section. URINE CULTURE Routine 03/31/2010 8:48 AM Results for this SHRIMP PICKER procedure are i n the results section. documented in this encounter Results Sexually Transmitted Disease Probe (03/31/2010 9:50 AM SHRIMP PICKER) [facility] Method Time Signature Sexually SEE TEXT HP CONVERSION Transmitted Disease Probe Comment: STDPR Sexually Transmitted Disease DNA Probe ? ORDERED BY: PAMELA PUGH - SOURCE: Endocervical for molecular testi ng COLLECTED: ??03/31/10 09:50 ? PLATED: ? 03/31/10 09:55 Chlamydia trachomatis DNA Probe ?FINAL ? 04/02/10 13:52 Chlamydia trachomatis NEGATIVE by DNA a mplification The amplified DNA assay is cleared by [facility] for non-medicolegal diagnostic testing in [facility] adult population. Neisseria gonorrhea DNA Probe ?FINAL ? 04/02/10 13:52 Neisseria gonorrhea NEGATIVE by DNA amp lification. The amplified DNA assay is cleared by [facility] [employer] for non-medicolegal diagnostic testing in [facility] adult population. Specimen (Source) Anatomical Collection Method Collection Time Re ceived Time Location / / Volume Laterality 03/31/2010 9:50 AM SHRIMP PICKER Pamela Britton MD LAB_1 Performing Organization Address City/State/ZIP Code Phon e Number HP CONVERSION (ABNORMAL) Differential (03/31/2010 9:50 AM SHRIMP PICKER) [facility] Method Time Signature Absolute 2.8 2.0 - [...] / / Volume Laterality 03/31/2010 9:50 AM SHRIMP PICKER Pamela Britton MD LAB_1 Performing Organization Address [facility] Code Phon e Number HP CONVERSION (ABNORMAL) Hemogram/Plts/Diff (03/31/2010 9:50 AM SHRIMP PICKER) Patholo gist Method Time Signature White Blood [...] / / Volume Laterality 03/31/2010 9:50 AM SHRIMP PICKER Pamela Britton MD LAB_1 Performing Organization Address [facility] Phon e Number HP CONVERSION Wet Prep (03/31/2010 9:40 AM SHRIMP PICKER) P athologist Signature Wet Prep SEE TEXT [...] / / Volume Laterality 03/31/2010 9:40 AM SHRIMP PICKER Pamela Britton MD LAB_1 Performing Organization Address [facility] Phon e Number HP CONVERSION Urine Culture (03/31/2010 8:48 AM SHRIMP PICKER) Analysis Performed At Patho logist Time Signature [...] / / Volume Laterality 03/31/2010 8:48 AM SHRIMP PICKER Pamela Britton MD LAB_1 Performing Organization Address [facility] Phon e Number HP CONVERSION (ABNORMAL) URINE MICROSCOPIC (03/31/2010 8:48 AM SHRIMP PICKER) [facility] Method Time Signature White Blood >100 (A) 0 - 4 /HPF HP CONVERSION Cells Urine Red Blood Cells 3-4 (A) 0 - 2 /HPF HP CONVERSION Urine Bacteria Urine Many (A) /HPF HP CONVERSION Epithelial Moderate /HPF HP CONVERSION Cells Specimen (Source) Anatomical Collection Method Collection Time Re ceived Time Location / / Volume Laterality 03/31/2010 8:48 AM SHRIMP PICKER Pamela Britton MD LAB_1 Performing Organization Address [facility] Phon e Number HP CONVERSION (ABNORMAL) URINALYSIS ROUTINE(MICRO IF POS) (03/31/2010 8:48 AM SHRIMP PICKER) [facility] gist Method Time Signature Urine Type [...] U Specific <=1.005 1.005 - HP CONVERSION [place] 1.030 Urobilinogen Negative Negative HP CONVERSION Urine Eu/dL Specimen (Source) Anatomical Collection Method Collection Time Re ceived Time Location / / Volume Laterality 03/31/2010 8:48 AM SHRIMP PICKER Pamela Britton MD LAB_1 Performing Organization Address [facility] Phon e Number HP CONVERSION documented in this encounter Visit Diagnoses Not on filedocumented in this encounter Care Teams Dry Can Tender Relationship Specialty Start Date End Date Md Leigh MD PCP - General 05/26/10 05/11/13 [place] [address] documented as of this encounter
--- OUTSIDE RECORDS SUMMARY | 2021-10-26 14:01 | XMS_ITS | Encounter Summary ---
:1985 Author Organization [facility] Address [address] [place] [address] Care Team Providers Name Role Phone Md MINA Leigh Primary Care Provider Reason for Visit Reason Comments EXCESSIVE SWEATING Encounter Details Date Type Department Care Team Description 01/23/2011 Office Visit [facility] Nicholas Weaver, Hyperhidrosis; [address] Milton Robb APRN, CNP [place], [place] [phone] [place] [address] [address] [place] [address] (Wo rk) Social History Tobacco Use Types Packs/Day Years Used Date Smoking Tobacco: Never Assessed Sex Assigned at Date Recorded Not on file documented as of this encounter Last Filed Vital Signs Vital Sign Reading Time Taken Comments Blood Pressure 92/50 01/23/2011 3:22 PM BUILDING ADMIN Pulse 68 01/23/2011 3:22 PM BUILDING ADMIN Temperature 36.7 ??C (98.1 ??F) 01/23/2011 3:22 PM BUILDING ADMIN Respiratory Rate - - Oxygen Saturation - - Inhaled Oxygen Concentration - - Weight 50.8 kg (112 lb) 01/23/2011 3:22 PM BUILDING ADMIN Height 165.1 cm (5' 5) 01/23/2011 3:22 PM BUILDING ADMIN Body Mass Index 18.64 01/23/2011 3:22 PM BUILDING ADMIN documented in this encounter Patient Instructions Patient InstructionsSuNicholas rincon APRN, PHLEBOTOMY MANAGER - 01/23/2011 3:35 PM BUILDING ADMIN Lab letter will arrive in 1-2 weeks. Aluminum Chloride as needed for sweating. DING ADMIN documented in this encounter Progress Notes Nicholas Weaver APRN, CNP - 01/23/2011 4:30 PM BUILDING ADMIN Addended by: NICHOLAS WEAVER on: 01/23/2011 Modules [...] unspecified documented in this encounter Care Teams Ophthalmic Pathologist Relationship Specialty Start Date End Date Md Leigh MD PCP - General 05/26/10 05/11/13 [place] [address] documented as of this encounter
--- OUTSIDE RECORDS SUMMARY | 2021-10-26 14:01 | XMS_ITS | Encounter Summary ---
:1985 Author Organization [facility] Address [address] [place] [address] Care Team Providers Name Role Phone Md MINA Leigh Primary Care Provider Encounter Details Date Type Department Care Team Description 03/31/2010 Office Visit [facility] [address], Care Jovany Guzman MD [address] [facility] [address] [place] [address] [place] [address] [phone] (Wo rk) Social History Tobacco Use Types Packs/Day Years Used Date Smoking Tobacco: Never Assessed Sex Assigned at Date Recorded Not on file documented as of this encounter Last Filed Vital Signs Vital Sign Reading Time Taken Comments Blood Pressure 121/80 03/31/2010 8:19 AM TURRET PUNCH OPERATOR Pulse 66 03/31/2010 8:19 AM TURRET PUNCH OPERATOR Temperature 37 ??C (98.6 ??F) 03/31/2010 8:19 AM TURRET PUNCH OPERATOR C: 37.0 C Respiratory Rate 16 03/31/2010 8:19 AM TURRET PUNCH OPERATOR Oxygen Saturation 100% 03/31/2010 8:19 AM TURRET PUNCH OPERATOR Inhaled Oxygen Concentration - - Weight - - Height - - Body Mass Index - - documented in this encounter Progress Notes Jovany Degroot MD - 03/31/2010 12:01 AM CST NAME: ODESSA CHE MR#: [id number] ACCT: [id number] VISIT: [id number] DICTATING CLINICIAN: Megan Britton MD CONFIRM #: [id number] LOC: 420 CLINIC PROGRESS NOTE DATE OF [...] any vaginal discharge. She denies any numbness, [id number] feeling in lower or upper extremity, no [...] t.i.d. and if not better, have followup. [facility]:MEDQ C: CONFIRM #: [id number] ET PUNCH OPERATOR documented in this encounter Plan of Treatment Not on filedocumented as of this encounter Procedures Procedure Name Priority Date/Time Associated Diagnosis Comme nts XR CHEST 2 VIEWS Routine 03/31/2010 8:59 AM Resul ts for this TURRET PUNCH OPERATOR procedure are i n the results section. documented in this encounter Results XR Chest 2 Views (03/31/2010 8:59 AM TURRET PUNCH OPERATOR) Anatomical Region Laterality Modality Chest, Lung Other Specimen (Source) Anatomical Location Collection Method / Collectio n Time Received Time / Laterality Volume Impressions 03/31/2010 8:59 AM TURRET PUNCH OPERATOR : ??Normal. Dictating TAYLOR ROBINS RADIOLOGIST Narrative 03/31/2010 8:59 AM TURRET PUNCH OPERATOR FINDINGS: ??No comparisons. ??Cardiac and mediastinal silhouettes [...] on filedocumented in this encounter Care Teams Paste Mixer Relationship Specialty Start Date End Date Md uL, PCP - General 05/26/10 05/11/13 [place] [address] documented as of this encounter
--- OUTSIDE RECORDS SUMMARY | 2021-10-26 14:01 | XMS_ITS | Encounter Summary ---
:1985 Author Organization [facility] Address [address] [place] [address] Care Team Providers Name Role Phone Md MINA Leigh Primary Care Provider Encounter Details Date Type Department Care Team Description 06/20/2010 PN Conversion Only HOUSEKEEPING LAUNDRY WORKER [address] Nicholas Rodríguez APRN, [address] [facility] [address] [facility] 5th Floor [address] [place], [place] [address] (Wo rk) Social History Tobacco Use Types [...] Transmitted Disease Probe (06/20/2010 3:38 PM CDT) [facility] Method Time Signature Sexually SEE TEXT HP CONVERSION Transmitted Disease Probe Comment: STDPR Sexually Transmitted Disease DNA Probe ? ORDERED BY: NICHOLAS KAY SOURCE: Endocervical for molecular testi ng COLLECTED: ??06/20/10 15:38 ? PLATED: ? 06/20/10 15:38 Chlamydia trachomatis DNA Probe ?FINAL ? 06/22/10 10:17 Chlamydia trachomatis NEGATIVE by DNA a mplification The amplified DNA assay is cleared by [facility] for non-medicolegal diagnostic testing in [facility] adult population. Neisseria gonorrhea DNA Probe ?FINAL ? 06/22/10 10:17 Neisseria gonorrhea NEGATIVE by DNA amp lification. The amplified DNA assay is cleared by [facility] for non-medicolegal diagnostic testing in [facility] adult population. Specimen (Source) Anatomical Collection Method Collection Time Re ceived Time Location / / Volume Laterality 06/20/2010 3:38 PM CDT Nicholas Kay APRN, HUNTING SALES ASSOCIATE LAB_1 Performing Organization Address City/[facility] Code Phon e Number HP [...] 06/20/2010 12:33 PM CDT Nicholas Kay APRN, HUNTING SALES ASSOCIATE LAB_1 Performing Organization Address City/[facility] Code Phon e Number HP CONVERSION URINALYSIS ROUTINE(MICRO IF POS) (06/20/2010 12:33 PM CDT) [facility] gist Method Time Signature Urine [...] U Specific 1.010 1.005 - HP CONVERSION [place] 1.030 Urobilinogen Negative Negative HP CONVERSION Urine Eu/dL Specimen (Source) Anatomical Collection Method Collection Time Re ceived Time Location / / Volume Laterality 06/20/2010 12:33 PM CDT Nicholas Kay APRN, HUNTING SALES ASSOCIATE LAB_1 Performing Organization Address City/[facility] Phon e Number HP CONVERSION Urine Culture (06/20/2010 12:31 PM CDT) Analysis Performed At [facility] Time Signature Urine Culture SEE TEXT [...] Kay APRN, DON LAB_1 Performing Organization Address City/[facility] Phon e Number HP CONVERSION documented in this encounter Visit Diagnoses Not on filedocumented in this encounter Care Teams Wood Model Maker Relationship Specialty Start Date End Date Md Leigh MD PCP - General 05/26/10 05/11/13 [place] [address] documented as of this encounter
--- OUTSIDE RECORDS SUMMARY | 2021-10-26 14:01 | XMS_ITS | Encounter Summary ---
:1985 Author Organization [facility] Address [address] [place] [address] Care Team Providers Name Role Phone Md MINA Leigh Primary Care Provider Encounter Details Date Type Department Care Team Description 12/25/2002 PN Conversion Only NETWORK OPERATIONS ANALYST [address] [place] [address] Social History Tobacco Use Types Packs/Day Years Used Date Smoking Tobacco: Never Assessed Sex Assigned at Date Recorded Not on file documented as of this encounter Plan of Treatment Not on filedocumented as of this encounter Visit Diagnoses Not on filedocumented in this encounter Care Teams Dynamometer Mechanic Relationship Specialty Start Date End Date Md Leigh MD PCP - General 05/26/10 05/11/13 [place], [place] [address] documented as of this encounter
--- OUTSIDE RECORDS SUMMARY | 2021-10-26 14:01 | XMS_ITS | Encounter Summary ---
:1985 Author Organization [facility] Address [address] [place] [address] Care Team Providers Name Role Phone Md MINA Leigh Primary Care Provider Reason for Visit Reason Comments Other Encounter Details Date Type Department Care Team Description 02/16/2009 Telephone [facility] [address] Liang Kay , TANK HOUSE OPERATOR, FOOD SERVICES COORDINATOR Other Obstetrics/Gynecolog y [address] [facility] 5th [place] [address] [place], [place] [address] (Wo rk) Social History Tobacco Use Types [...] 06/15/101938 Note Time: 02/16/09 0848 Status: Signed Wood Die Maker: Yulisa Carlson RN (Registered Nurse) MESSAGE TO [...] else is called to pharmacy, please use [facility] [employer] [address]. Pt can be reached at [phone], msg ok On 21Feb2009 5:18pm LIANG KAY [...] wrote: No response from patient, call closed. LER MAKER documented in this encounter Plan of Treatment Not on filedocumented as of this encounter Visit Diagnoses Not on filedocumented in this encounter Care Teams Other Wood Processing Machine Operator Relationship Specialty Start Date End Date Md Leigh MD PCP - General 05/26/10 05/11/13 [place] [address] documented as of this encounter
--- OUTSIDE RECORDS SUMMARY | 2021-10-26 14:01 | XMS_ITS | Encounter Summary ---
:1985 Author Organization [facility] Address [address] [place] [address] Care Team Providers Name Role Phone Md MINA Leigh Primary Care Provider Encounter Details Date Type Department Care Team Description 01/23/2011 Notes/Orders [facility] Nanette Bravo, [address] APRN, BUSINESS [place] [address] [place] [address] [address] [phone] (Wo rk) Social History Tobacco Use Types Packs/Day Years Used Date Smoking Tobacco: Never Assessed Sex Assigned at Date Recorded Not on file documented as of this encounter Plan of Treatment Not on filedocumented as of this encounter Visit Diagnoses Not on filedocumented in this encounter Care Teams It Service Manager Relationship Specialty Start Date End Date Md Leigh MD PCP - General 05/26/10 05/11/13 [place], [place] [address] documented as of this encounter
--- OUTSIDE RECORDS SUMMARY | 2021-10-26 14:01 | XMS_ITS | Encounter Summary ---
:1985 Author Organization [facility] Address [address] [place] [address] Care Team Providers Name Role Phone Md MINA Leigh Primary Care Provider Encounter Details Date Type Department Care Team Description 07/12/2008 PN Conversion Only REGIONAL DEDICATED TRUCK DRIVER [address] [place] [address] Social History Tobacco Use Types Packs/Day Years Used Date Smoking Tobacco: Never Assessed Sex Assigned at Date Recorded Not on file documented as of this encounter Plan of Treatment Not on filedocumented as of this encounter Visit Diagnoses Not on filedocumented in this encounter Care Teams Skip Hoist Operator Relationship Specialty Start Date End Date Md Leigh MD PCP - General 05/26/10 05/11/13 [place], [place] [address] documented as of this encounter
--- OUTSIDE RECORDS SUMMARY | 2021-10-26 14:01 | XMS_ITS | Encounter Summary ---
:1985 Author Organization [facility] Address [address] [place] [address] Care Team Providers Name Role Phone Md MINA Leigh Primary Care Provider Encounter Details Date Type Department Care Team Description 03/31/2010 PN Conversion Only WORSHIP CONVERSION Social History Tobacco Use Types Packs/Day Years Used Date Smoking Tobacco: Never Assessed Sex Assigned at Date Recorded Not on file documented as of this encounter Plan of Treatment Not on filedocumented as of this encounter Visit Diagnoses Not on filedocumented in this encounter Care Teams Subway Train Driver Relationship Specialty Start Date End Date Md Leigh MD PCP - General 05/26/10 05/11/13 [place] [address] documented as of this encounter
--- OUTSIDE RECORDS SUMMARY | 2021-10-26 14:01 | XMS_ITS | Encounter Summary ---
:1985 Author Organization [facility] Address [address] [place] [address] Care Team Providers Name Role Phone Md MINA Leigh Primary Care Provider Encounter Details Date Type Department Care Team Description 06/20/2010 Office Visit [facility] [address] Nanette Kay APRN, CNP Obstetrics/Gynecolog y [address] [facility] 5th [place] [address] [phone] Social History Tobacco Use Types Packs/Day Years [...] on filedocumented in this encounter Care Teams Tank Charger Relationship Specialty Start Date End Date Md Leigh MD PCP - General 05/26/10 05/11/13 [place] [address] documented as of this encounter
--- OUTSIDE RECORDS SUMMARY | 2021-10-26 14:01 | XMS_ITS | Encounter Summary ---
:1985 Author Organization [facility] Address [address] [place] [address] Care Team Providers Name Role Phone Md MINA Leigh Primary Care Provider Encounter Details Date Type Department Care Team Description 06/21/2010 PN Conversion Only CONVERSION CONVERSION Jovany Melendez MD [address] [place], [place] [phone] (Wo rk) Social History Tobacco Use Types Packs/Day Years Used Date Smoking Tobacco: Never Assessed Sex Assigned at Date Recorded Not on file documented as of this encounter Plan of Treatment Not on filedocumented as of this encounter Visit Diagnoses Not on filedocumented in this encounter Care Teams Shipyard Painting Supervisor Relationship Specialty Start Date End Date Md Leigh MD PCP - General 05/26/10 05/11/13 [place], [place] [id number] documented as of this encounter
--- OUTSIDE RECORDS SUMMARY | 2021-10-26 14:01 | XMS_ITS | Encounter Summary ---
:1985 Author Organization [facility] Address [address] [place] [address] Care Team Providers Name Role Phone Md MINA Leigh Primary Care Provider Encounter Details Date Type Department Care Team Description 01/13/2009 Office Visit [facility] [address] Nanette Kay APRN, CNP Obstetrics/Gynecolog y [address] [facility] 5th Floor [place] [address] [phone] Social History Tobacco Use Types Packs/Day Years Used Date Smoking Tobacco: Never Assessed Sex Assigned at Date Recorded Not on file documented as of this encounter Last Filed Vital Signs Vital Sign Reading Time Taken Comments Blood Pressure 122/65 01/13/2009 1:01 PM EDI CONSULTANT Pulse 63 01/13/2009 1:01 PM EDI CONSULTANT Temperature - - Respiratory Rate - - Oxygen Saturation - - Inhaled Oxygen Concentration - - Weight 52 kg (114 lb 9.5 oz) 01/13/2009 1:01 PM EDI CONSULTANT C: 52.0kg Height 162.6 cm (5' 4) 01/13/2009 1:01 PM EDI CONSULTANT C: 162.6 cm Body Mass Index 19.67 01/13/2009 1:01 PM EDI CONSULTANT documented in this encounter Progress Notes Nanette Kay APRN, DON - 01/13/2009 12:01 AM CST H&P signed by OMAR Tucker at 01/23/092032 Author: OMAR Tucker Service: (none) Author Type: Nurse Practitioner Filed: 06/16/10 1807 Note Time: 01/13/09 0001 Status: Signed Filling Carrier: OMAR Tucker (Nurse Practitioner) NAME: ODESSA CHE MR#: [id number] ACCT: [id number] VISIT: [id number] DICTATING CLINICIAN: OMAR Tucker CONFIRM #: [id number] LOC: 412 CLINIC PHYSICAL DATE OF VISIT: 01/13/2009 SUBJECTIVE: : 1985. Kimberley is a nulliparous female who presents as new patient to me, as well as to Felipa Dang for health maintenance exam. Kimberley is currently using condoms for prevention and would really like to start oral contraceptives. 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 She has had 2 sexual partners historically. She has never been screened for gonorrhea or chlamydia. She believes her last Pap smear was about 2 years ago. As far as she knows, that was a normal exam. CHIEF II DISPATCHER HISTORY: Onset of menses age 11. Cycles [...] breast exam. OBSTETRICAL HISTORY: Not applicable. PAST CHIEF II DISPATCHER HISTORY: Not applicable. NON-CHIEF II DISPATCHER SURGERIES: Extraction of wisdom teeth. PERSONAL HEALTH HISTORY: Seasonal allergies. 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 She does not have any [...] pending. Will follow up based on results. JAR:[id number] C: 01/13/09 19:07 CONFIRM #: [id number] CONSULTANT documented in this encounter Plan of Treatment Not on filedocumented as of this encounter Visit Diagnoses Not on filedocumented in this encounter Care Teams Elevator Dispatcher Relationship Specialty Start Date End Date Md Lu, PCP - General 05/26/10 05/11/13 [place] [address] documented as of this encounter
--- OUTSIDE RECORDS SUMMARY | 2021-10-26 14:01 | XMS_ITS | Encounter Summary ---
:1985 Author Organization [employer] Address [address] [place] [address] Care Team Providers Name Role Phone Md MINA Leigh Primary Care Provider Reason for Visit Reason Comments INJURY, KNEE Encounter Details Date Type Department Care Team Description 08/25/2011 Hospital Encounter [facility] [address] Edwin Polanco pain; Urgent Care Mini Buck MD Fracture, patella 3850 [facility] [address] [place] [address] [phone] Social History Tobacco Use Types Packs/Day Years [...] otherwise negative Past Medical History: Reviewed in [facility] Past Medical History Diagnosis Date ??? Anemia ??? Hyperhidrosis 01/23/2011 Adverse Drug Reactions: Reviewed in [facility] Review of patient's allergies indicates no known allergies. Medications: Reviewed in [facility] No current facility-administered medications on file. Current [...] Vital Signs: Reviewed in flowsheet charting of [facility] Blood pressure 107/70, pulse 76, temperature 36.9 [...] crutches nonweightbearing. [facility] is [...] at 9:[address] Polanco review ACE INSTALLER HELPER Medication History - Bob Saavedra MD - 08/25/2011 3:39 PM CDT INPATIENT MEDS Encounter Date: 08/25/11 HYDROcodone-acetaminophen (VICODIN) 5-500 mg per tablet Start Date:08/25/11, End Date:09/04/11, Frequency:EVERY 6 HOURS PRN *No Administrations Recorded Letter - 08/25/2011 12:00 AM CDT [place] [address] [address] [place] [address] August 25, 2011 Patient: Simona Che Date of : 1985 Date of Visit: 08/25/2011 To Whom It May Concern: Simona Che was seen and treated in our department on 08/25/2011. She may return to work on 08/29/2011. May return sooner if patient feels she can tolerate.. If you have any questions or concerns, please don't hesitate to call. Sincerely, Mini Polanco MD ACE INSTALLER HELPER documented in this encounter Plan of Treatment [...] patella documented in this encounter Care Teams Wool Dyer Relationship Specialty Start Date End Date Md Leigh MD PCP - General 05/26/10 05/11/13 [place] [address] documented as of this encounter
--- OUTSIDE RECORDS SUMMARY | 2021-10-26 14:01 | XMS_ITS | Encounter Summary ---
:1985 [facility] Address [address] [place] [address] Care Team Providers Name Role Phone Md MINA Leigh Primary Care Provider Encounter Details Date Type Department Care Team Description 01/23/2011 Lab Visit [facility] Hyperhidrosis; [address] Anemia [place], [place] [address] Social History Tobacco Use Types Packs/Day Years Used Date Smoking Tobacco: Never Assessed Sex Assigned at Date Recorded Not on file documented as of this encounter Progress Notes Nicholas Weaver APRN, CNP - 03/07/2011 3:22 PM CST remind patient to schedule her hemoglobin lab. Nicholas Weaver APRN, CNP - 01/25/2011 5:51 PM ELECTRONIC WARFARE OFFICER Addended by: NICHOLAS WEAVER on: 01/25/2011 Modules [...] Re sults for this (INCL IRON) PM ELECTRONIC WARFARE OFFICER procedure are i n the results section. THYROID STIMULATING Routine 01/23/2011 3:48 Hyperhidrosis Resu lts for this HORMONE PM ELECTRONIC WARFARE OFFICER procedure are i n the results section. COMPLETE BLOOD Routine 01/23/2011 3:48 Hyperhidrosis Results f or this COUNT-NO DIFF PM ELECTRONIC WARFARE OFFICER procedure are in the results section. FERRITIN Routine 01/23/2011 3:48 Hyperhidrosis Results for this PM ELECTRONIC WARFARE OFFICER procedure are i n the results section. VENIPUNCTURE (JEFF) Routine 01/23/2011 3:41 Hyperhidrosis Resu lts for this PM ELECTRONIC WARFARE OFFICER procedure are i n the results section. documented in this encounter Results THYROID STIMULATING HORMONE (01/23/2011 3:48 PM ELECTRONIC WARFARE OFFICER) athologist Signature Thyroid 0.98 0.20 - HP CONVERSION Stimulating 4.50 mIU/L Hormone Specimen Anatomical Collection Method Collection Time Receive d Time (Source) Location / / Volume Laterality 01/23/2011 3:48 PM 1 7:58 ELECTRONIC WARFARE OFFICER PM ELECTRONIC WARFARE OFFICER Nicholas Weaver APRN, CNP LAB_1 Performing Organization Address City/State/ZIP Code Phon e Number HP CONVERSION (ABNORMAL) IRON BINDING CAPACITY (INCL IRON) (01/23/2011 3:48 PM ELECTRONIC WARFARE OFFICER) [facility] gist Method Time Signature Iron, Serum [...] Volume Laterality 01/23/2011 3:48 PM 1 7:58 ELECTRONIC WARFARE OFFICER PM ELECTRONIC WARFARE OFFICER Nicholas Weaver APRN, CNP LAB_1 Performing Organization Address City/State/ZIP Code Phon e Number HP CONVERSION (ABNORMAL) Ferritin (01/23/2011 3:48 PM ELECTRONIC WARFARE OFFICER) athologist Signature Ferritin Serum <1 (L) 10 - 291 HP CONVERSION ng/mL Specimen Anatomical Collection Method Collection Time Receive d Time (Source) Location / / Volume Laterality 01/23/2011 3:48 PM 1 7:58 ELECTRONIC WARFARE OFFICER PM ELECTRONIC WARFARE OFFICER Nicholas Weaver APRN, CNP LAB_1 Performing Organization Address City/[facility] Phon e Number HP CONVERSION (ABNORMAL) Hemogram/Plts (01/23/2011 3:48 PM ELECTRONIC WARFARE OFFICER) [facility] gist Method Time Signature White Blood [...] Volume Laterality 01/23/2011 3:48 PM 1 3:48 ELECTRONIC WARFARE OFFICER PM ELECTRONIC WARFARE OFFICER Narrative HP CONVERSION - 01/23/2011 4:03 PM ELECTRONIC WARFARE OFFICER Performed at [facility], [address] [place] [address] Nicholas Weaver APRN, CNP LAB_1 Performing Organization Address [facility] Phon e Number HP CONVERSION VENIPUNCTURE (JEFF) (01/23/2011 3:41 PM ELECTRONIC WARFARE OFFICER) athologist Signature Venipuncture Done HP CONVERSION Specimen (Source) Anatomical Collection Method Collection Time Re ceived Time Location / / Volume Laterality 01/23/2011 3:41 PM ELECTRONIC WARFARE OFFICER Narrative HP CONVERSION - 01/23/2011 3:41 PM ELECTRONIC WARFARE OFFICER Performed at [facility], [address] [place] [address] Nicholas Weaver APRN, CNP LAB_1 Performing Organization Address [facility] Phon e Number HP CONVERSION documented in this encounter Visit Diagnoses Diagnosis Hyperhidrosis Primary focal hyperhidrosis Anemia Anemia, unspecified documented in this encounter Care Teams Haulage Engine Operator Relationship Specialty Start Date End Date Md Leigh MD PCP - General 05/26/10 05/11/13 [place] [address] documented as of this encounter
--- OUTSIDE RECORDS SUMMARY | 2021-10-26 14:01 | XMS_ITS | Encounter Summary ---
:1985 Author Organization [facility] Address [address] [place] [address] Care Team Providers Name Role Phone Unavailable Primary Care Provider Unavailable Reason for Visit Reason Comments INJURY, FINGERS Encounter Details Date Type Department Care Team Description 09/01/1997 Telephone Careline Aisha Aguilar, RN INJURY, FINGERS [address] [place], [place] [address] [phone] [place] [address] Social History Tobacco Use Types Packs/Day Years Used Date Smoking Tobacco: Never Assessed Sex Assigned at Date Recorded Not on file documented as of this encounter Nursing Notes 09/01/1997 11:59 PM CDT >> CALL RECEIVED. Contact: [phone] >> AISHA AGUILAR 09/01/1997 10:07 pm Dad [...] to go to Er will go to [facility]. documented in this encounter Plan of Treatment Not on filedocumented as of this encounter Visit Diagnoses Not on filedocumented in this encounter
--- OUTSIDE RECORDS SUMMARY | 2021-10-26 14:01 | XMS_ITS | Encounter Summary ---
:1985 [facility] Address [address] [place] [address] Care Team Providers Name Role Phone Md MINA Leigh Primary Care Provider Encounter Details Date Type Department Care Team Description 02/24/1989 PN Conversion Only STOCK ORDER LISTER 3800 CON[address] John Hector I [address] [place] [address] [address] [place] [address] (Wo rk) Social History Tobacco Use Types Packs/Day Years Used Date Smoking Tobacco: Never Assessed Sex Assigned at Date Recorded Not on file documented as of this encounter Plan of Treatment Not on filedocumented as of this encounter Visit Diagnoses Not on filedocumented in this encounter Care Teams Patch Washer Relationship Specialty Start Date End Date Md Leigh MD PCP - General 05/26/10 05/11/13 [place] [address] documented as of this encounter
--- OUTSIDE RECORDS SUMMARY | 2021-10-26 14:01 | XMS_ITS | Encounter Summary ---
:1985 Author Organization [facility] Address [address] [place] [address] Care Team Providers Name Role Phone Md MINA Leigh Primary Care Provider Encounter Details Date Type Department Care Team Description 04/06/2010 [facility] Visit [facility] Nanette Bravo, [address] [facility] GRANT, ORGAN [place] [address] [place] [address] [address] [place] [address] (Wo rk) Social History Tobacco Use Types Packs/Day Years Used Date Smoking Tobacco: Never Assessed Sex Assigned at Date Recorded Not on file documented as of this encounter Progress Notes Nanette Bravo, JUANITA, ORGAN PIPE FINISHER - 04/06/2010 12:01 AM CST SUBJECTIVE: Simona [...] discharged ambulatory and in stable condition. *SH~DNS~SOAP OR TECHNICAL ARCHITECT documented in this encounter Plan of Treatment Not on filedocumented as of this encounter Visit Diagnoses Not on filedocumented in this encounter Care Teams Printed Circuit Board Preassembler Relationship Specialty Start Date End Date Md Leigh MD PCP - General 05/26/10 05/11/13 [place] [address] documented as of this encounter
--- OUTSIDE RECORDS SUMMARY | 2021-10-26 14:01 | XMS_ITS | Encounter Summary ---
:1985 Author Organization [facility] Address [address] [place] [address] Care Team Providers Name Role Phone Md MINA Leigh Primary Care Provider Reason for Visit Reason Comments Other Encounter Details Date Type Department Care Team Description 06/20/2010 Telephone [facility] [address] [place], Message Other Obstetrics/Gynecolog y [address] [place] [address] Social History Tobacco Use Types Packs/Day Years Used Date Smoking Tobacco: Never Assessed Sex Assigned at Date Recorded Not on file documented as of this encounter Progress Notes [place], Message - 06/20/2010 8:33 AM CDT Ml on pt's contact number to go to [facility] lab 1/2 hr prior to appt for UA/UC. Labs faxed. Created on 20Jun2010 8:33am by ELVA DU documented in this encounter Plan of Treatment Not on filedocumented as of this encounter Visit Diagnoses Not on filedocumented in this encounter Care Teams Superintendent Transportation Relationship Specialty Start Date End Date Md Leigh MD PCP - General 05/26/10 05/11/13 [place] [address] documented as of this encounter
== END 2021-10-26 13:58 | disposition home or self-care (01) ==
LOC: US 13:58
PROVIDERS: PCP Nurse Practitioner Family; Visit Provider Obstetrics & Gynecology
DX: O09.899 Supervision of other high risk pregnancies, unspecified trimester (principal)
CPT/HCPCS: 76819

== ENCOUNTER 2021-11-01 06:35 | Inpatient (IN) | payer BC, SELFPAY ==
[2021-11-01] VITALS (13 sets, daily range): BP systolic 95–123; BP diastolic 56–83; PULSE 57–93; RESP 16; TEMP 36.6–36.9; O2SAT 97; BMI 30.2
--- OUTSIDE RECORDS SUMMARY | 2021-11-01 06:38 | XMS_ITS | Clinical Summary ---
:1985 Author Organization [facility] [place] [address] Care Team Providers Name Role Phone Unavailable [...] Type Group BLUE CROSS BLUE CROSS OF [id number] [id number] [facility] MARY RANKIN [phone] Guarantor Name Account Type Relation to Date of Phone Billing Patient Address Simona Che Personal/Family Self 1985 [address] (Home) [place] [phone] (Work)
--- OUTSIDE RECORDS SUMMARY | 2021-11-01 06:39 | XMS_ITS | Encounter Summary ---
:1985 Author Organization [employer] Address [address] [place] [address] Care Team Providers Name Role Phone Jie Mckeon DO Primary Care Provider Reason for Visit Reason Comments Refill SUMAtriptan (IMITREX) 100 MG tablet [Pharmacy Med Name: SUMATRIPTAN SUCC 100 MG TABLET] Encounter Details Date Type Department Care Team Description 07/12/2017 Refill [facility] 3850 Jie Mckeon, Re fill (SUMAtriptan Family Medicine DO (IMITREX) 100 MG tablet [address] [place] [address] [Ph armacy Med Name: Blvd. BL[address] SUMATRIPTAN SUCC 100 MG [place], [place] TA BLET]) [phone] (Wo rk) Social History Tobacco Use Types [...] 74 mm Hg on 04/09/2017 Powered by SportXast, Reference: [id number], 07/12/2017 6:02:29 PM CDT, Pool: [id number] FM REFILL ([id number]) Electronically signed by Interface, Out [employer] Prov Query at 07/15/2017 3:25 PM CDT documented in this encounter Plan of Treatment Not on filedocumented as of this encounter Visit Diagnoses Not on filedocumented in this encounter Care Teams Aurist Relationship Specialty Start Date End Date Jie Mckeon DO PCP - General Family Practice 04/05/16 [address] [place] [address] documented as of this encounter
--- OUTSIDE RECORDS SUMMARY | 2021-11-01 06:39 | XMS_ITS | Encounter Summary ---
:1985 Author Organization [facility] Address [address] [place] [address] Care Team Providers Name Role Phone Sofi Jie Rock DO Primary Care Provider Reason for Visit Reason Comments Annual Exam Encounter Details Date Type Department Care Team Description 04/09/2017 [facility] Nanette Kay Well female exam with routine gynecological exam (Primary Dx); Obstetrics/Gynecolog LAP GRINDER, MOTOR ROOM CONTROLLER Oral contraceptive pill surveillance y [address] [facility] 5th [place] [address] [phone] (Wo rk) Social History Tobacco Use Types [...] Comments Blood Pressure 110/74 04/09/2017 3:19 PM DORMITORY MAID Pulse 82 04/09/2017 3:19 PM DORMITORY MAID Temperature - - Respiratory Rate - - Oxygen Saturation - - Inhaled Oxygen Concentration - - Weight 53.3 kg (117 lb 6.4 oz) 04/09/2017 3:19 PM DORMITORY MAID Height 168.3 cm (5' 6.25) 04/09/2017 3:19 PM DORMITORY MAID Body Mass Index 18.81 04/09/2017 3:19 PM DORMITORY MAID documented in this encounter Patient Instructions Patient [...] continue your pills. I am available at [phone] or through cinvolve if you have any concerns. Happy Liane's Day. I hope you are feeling better.soon.. ITORY MAID documented in this encounter Progress Notes Nanette [...] continue your pills. I am available at [phone] or through cinvolve if you have any concerns. Happy Rob's Day. I hope you are feeling better.soon.. Current Control:OCPs ITORY MAID documented in this encounter Plan of Treatment Not on filedocumented as of this encounter Visit Diagnoses Diagnosis Well female exam with routine gynecologi bre exam - Primary Routine gynecological examination Oral contraceptive pill surveillance Surveillance of previously prescribed co ntraceptive pill documented in this encounter Care Teams Melting Supervisor Relationship Specialty Start Date End Date Jie Farah DO PCP - General Family Practice 04/05/16 [address] [place] [address] documented as of this encounter
--- OUTSIDE RECORDS SUMMARY | 2021-11-01 06:39 | XMS_ITS | Encounter Summary ---
:1985 Author Organization [facility] Address [address] [place] [address] Care Team Providers Name Role Phone Jie Farah DO Primary Care Provider Reason for Visit Reason Comments MEDICATION CHECK Refill Encounter Details Date Type Department Care Team Description 02/15/2019 Office Visit [facility] 3850 Jie Farah, [place] graine without aura Family Medicine DO and without status [address] francisco rainosus, not [address] intractable (Primary [place], [place] Dx ) [phone] (Wo rk) Social History Tobacco Use Types [...] Comments Blood Pressure 97/57 02/15/2019 9:07 AM STEEL ROLLER Pulse 61 02/15/2019 9:07 AM STEEL ROLLER Temperature - - Respiratory Rate - - Oxygen Saturation - - Inhaled Oxygen Concentration - - Weight 54.7 kg (120 lb 9.6 oz) 02/15/2019 9:07 AM STEEL ROLLER Height - - Body Mass Index 19.32 04/09/2017 3:19 PM STEEL ROLLER documented in this encounter Progress Notes Jie [...] or worsen referral to the headache Clinic. L ROLLER documented in this encounter Plan of Treatment Not on filedocumented as of this encounter Visit Diagnoses Diagnosis Migraine without aura and without status migrainosus, not intractable - Primary Migraine without aura, without mention o f intractable migraine without mention of status migrainosus documented in this encounter Care Teams Director Of Database Marketing Relationship Specialty Start Date End Date Jie Farah DO PCP - General Family Practice 04/05/16 [address] [place] [address] documented as of this encounter
--- OUTSIDE RECORDS SUMMARY | 2021-11-01 06:39 | XMS_ITS | Encounter Summary ---
:1985 Author Organization [facility] Address [address] [place] [address] Care Team Providers Name Role Phone Jie Mckeon DO Primary Care Provider Reason for Visit Reason Onset Date Comments Refill 07/14/2019 SUMAtriptan (IMITREX ) 100 MG tablet Encounter Details Date Type Department Care Team Description 07/14/2019 Refill [facility] 3850 Jie Mckeon, Re fill (SUMAtriptan Family Medicine DO (IMITREX) 100 MG [address] [place] [place] [address] tab let) [place] [phone] (Wo rk) Social History Tobacco Use Types [...] mouth as needed for Migraine. Interface, Out Asteel Query - 07/14/2019 9:55 AM CDT SUMAtriptan [...] 57 mm Hg on 02/15/2019 Powered by DDStocks, Reference: [id number], 07/14/2019 9:55:23 AM CDT, Pool: [id number] FM REFILL ([id number]) documented in this encounter Plan of Treatment Not on filedocumented as of this encounter Visit Diagnoses Not on filedocumented in this encounter Care Teams Machine Applicator Cementer Relationship Specialty Start Date End Date Jie Mckeon, PCP - General Family Practice 04/05/16 [address] [place] [address] documented as of this encounter
--- OUTSIDE RECORDS SUMMARY | 2021-11-01 06:39 | XMS_ITS | Encounter Summary ---
:1985 Author Organization [facility] Address [address] [place] [address] Care Team Providers Name Role Phone Jie Farah DO Primary Care Provider Encounter Details Date Type Department Care Team Description 06/05/2020 Immunization [place] COVDE Encounter for Vaccine Program administration of vaccine [address] (Primary Dx) [place], [place] [address] Social History Tobacco Use Types [...] Primary documented in this encounter Care Teams Machine Cell Tuber Relationship Specialty Start Date End Date Jie Farah DO PCP - General Family Practice 04/05/16 [address] [place] [address] documented as of this encounter
--- OUTSIDE RECORDS SUMMARY | 2021-11-01 06:39 | XMS_ITS | Encounter Summary ---
:1985 Author Organization [facility] Address [address] [place] [address] Care Team Providers Name Role Phone Jie Mckeon DO Primary Care Provider Reason for Visit Reason Onset Date Comments Refill 03/29/2020 SUMAtriptan (IMITREX ) 100 MG tablet Encounter Details Date Type Department Care Team Description 03/29/2020 Refill [facility] 3850 Jie Mckeon, Re fill (SUMAtriptan Family Medicine DO (IMITREX) 100 MG [address] [place] [address] tab let) [place] [phone] (Wo rk) Social History Tobacco Use Types [...] Tablet by mouth as needed for Migraine. LOPMENT EDITOR Keven Leblanc, RN - 03/29/2020 12:32 PM CST 90 day supply given per Emergency Refill Standing Order. Keven Leblanc RN 03/29/2020, 12:32 PM LOPMENT EDITOR Interface, Out [employer] Prov Query - 03/29/2020 10:06 AM CST [...] MCKEON) Next scheduled visit: None Powered by [facility], Reference: [id number], 03/29/2020 10:06:04 AM DEVELOPMENT EDITOR, Pool: [id number] FM REFILL ([id number]) LOPMENT EDITOR documented in this encounter Plan of Treatment Not on filedocumented as of this encounter Visit Diagnoses Not on filedocumented in this encounter Care Teams Materials Management Clerk Relationship Specialty Start Date End Date Jie Mckeon DO PCP - General Family Practice 04/05/16 [address] [place] [address] documented as of this encounter
--- OUTSIDE RECORDS SUMMARY | 2021-11-01 06:39 | XMS_ITS | Encounter Summary ---
:1985 Author Organization [facility] Address [address] [place] [address] Care Team Providers Name Role Phone Jie Farah DO Primary Care Provider Reason for Visit Reason Comments MEDICATION CHECK Encounter Details Date Type Department Care Team Description 05/14/2016 Office Visit [facility] 3850 Jie Farah, [place] graine without aura Family Medicine DO and without status [address] francisco rainosus, not [address] intractable (Primary [place], [place] Dx ) [phone] (Wo rk) Social History Tobacco Use Types [...] Body Mass Index 19.35 03/04/2016 9:31 AM DIRECTOR NURSES' REGISTRY documented in this encounter Progress Notes Jie [...] migrainosus documented in this encounter Care Teams Embossing Press Operator Apprentice Relationship Specialty Start Date End Date Jie Farah DO PCP - General Family Practice 04/05/16 [address] [place] [address] documented as of this encounter
--- OUTSIDE RECORDS SUMMARY | 2021-11-01 06:39 | XMS_ITS | Encounter Summary ---
:1985 Author Organization [facility] Address [address] [place] [address] Care Team Providers Name Role Phone Jie Mckeon DO Primary Care Provider Reason for Visit Reason Comments Refill SUMAtriptan (IMITREX) 100 MG tablet [Pharmacy Med Name: SUMATRIPTAN SUCC 100 MG TABLET] Encounter Details Date Type Department Care Team Description 02/12/2018 Refill [facility] 3850 Jie Mckeon, Re fill (SUMAtriptan Family Medicine DO (IMITREX) 100 MG tablet [address] [place] [address] [Ph armacy Med Name: Blvd. BL[address] SUMATRIPTAN SUCC 100 MG [place], [place] TA BLET]) [phone] (Wo rk) Social History Tobacco Use Types [...] low priority to Refill Wizard Admin-PN Pool ([id number]) Sheree Tee - 02/18/2018 8:54 AM CST [...] encounter high priority to Refill Pool (P [id number]) Marga Mcdermott RN - 02/13/2018 5:46 PM CST Further Assistance Needed on Refill from [facility] F[facility] Hand Patient is overdue for Office visit. -> [...] HRS IF NEEDED. MAX 2 TABS/24HRS, 9DAYS/MONTH T TENDER Interface, Out Surescripts Prov Query - 02/12/2018 [...] 74 mm Hg on 04/09/2017 Powered by Yashi, Reference: [id number], 02/12/2018 9:37:46 AM FLOAT TENDER, Pool: [id number] FM REFILL ([id number]) T TENDER documented in this encounter Plan of Treatment Not on filedocumented as of this encounter Visit Diagnoses Not on filedocumented in this encounter Care Teams Parish Nurse Relationship Specialty Start Date End Date Jie Mckeon DO PCP - General Family Practice 04/05/16 [address] [place] [address] documented as of this encounter
--- OUTSIDE RECORDS SUMMARY | 2021-11-01 06:39 | XMS_ITS | Encounter Summary ---
:1985 Author [facility] Address [address] [place] [address] Care Team Providers Name Role Phone Jie Farah DO Primary Care Provider Reason for Visit Reason Onset Date Comments Refill 06/19/2016 Encounter Details Date Type Department Care Team Description 06/19/2016 Refill [facility] 3850 Family Denisse Sue, DO Refill Medicine [address] [place] [place] [address] [place], [place] [address] [phone] Social History Tobacco Use Types Packs/Day Years [...] MG tablet [Denisse Sue DO] Preferred pharmacy: [address] Comment: Good Morning, I saw Dr. Farah earlier this month regarding a refill on this prescription. I am looking to have it refilled at the pharmacy. Could you please submit the new prescription? Thank you. documented in this encounter Plan of Treatment Not on filedocumented as of this encounter Visit Diagnoses Not on filedocumented in this encounter Care Teams Internet Marketing Strategist Relationship Specialty Start Date End Date Jie Farah DO PCP - General Family Practice 04/05/[address] [place] [address] documented as of this encounter
--- OUTSIDE RECORDS SUMMARY | 2021-11-01 06:39 | XMS_ITS | Encounter Summary ---
:1985 Author Organization [facility] Address [address] [place] [address] Care Team Providers Name Role Phone Jie Mckeon DO Primary Care Provider Reason for Visit Reason Comments Refill SUMAtriptan (IMITREX) 100 MG tablet [Pharmacy Med Name: SUMATRIPTAN SUCC 100 MG TABLET] Encounter Details Date Type Department Care Team Description 11/03/[address] [facility] 3850 Jie Mckeon, Re fill (SUMAtriptan Family Medicine DO (IMITREX) 100 MG tablet [address] [place] [address] [Ph armacy Med Name: Bl[address] SUMATRIPTAN SUCC 100 MG [place], [place] TA BLET]) [phone] (Wo rk) Social History Tobacco Use Types [...] 75 mm Hg on 02/23/2018 Powered by Social Shop, Reference: [id number], 11/03/2018 8:37:25 AM CDT, Pool: [id number] FM REFILL ([id number]) documented in this encounter Plan of Treatment Not on filedocumented as of this encounter Visit Diagnoses Not on filedocumented in this encounter Care Teams Pollution Control Chemist Relationship Specialty Start Date End Date Jie Mckeon DO PCP - General Family Practice 04/05/16 [address] [place], [place] [address] documented as of this encounter
--- OUTSIDE RECORDS SUMMARY | 2021-11-01 06:39 | XMS_ITS | Encounter Summary ---
:1985 Author Organization [facility] Address [address] [place] [address] Care Team Providers Name Role Phone Sofi Jie Shweta ZARAGOZA Primary Care Provider Reason for Visit Reason Comments Refill Encounter Details Date Type Department Care Team Description 03/08/2018 [facility]ill [facility] Nicholas Kay A PRN, ROVING MACHINE OPERATOR Refill Obstetrics/Gynecolog y [address] [facility] 5th [place] [address] [place], [place] [phone] (Wo rk) Social History Tobacco Use Types [...] Department Center 04/22/2018 7:30 AM Nicholas Kay, LAMINATOR, ROVING MACHINE OPERATOR P6500 OB PN [address] documented in this encounter Plan of Treatment Not on filedocumented as of this encounter Visit Diagnoses Not on filedocumented in this encounter Care Teams Manager Of Marketing Relationship Specialty Start Date End Date Jie Farah DO PCP - General Family Practice 04/05/16 [address] [place] [address] documented as of this encounter
--- OUTSIDE RECORDS SUMMARY | 2021-11-01 06:39 | XMS_ITS | Encounter Summary ---
:1985 Author Organization [facility] Address [address] [place] [address] Care Team Providers Name Role Phone Jie Farah DO Primary Care Provider Reason for Visit Reason Comments Refill Encounter Details Date Type Department Care Team Description 03/12/2017 [facility]ill [facility] Nanette Kay A PRN, RETAINING ROOM CUTTER Refill Obstetrics/Gynecolog y [address] [facility] 5th [place] [address] [place], [place] [phone] (Wo rk) Social History Tobacco Use Types [...] Department Center 04/09/2017 3:30 PM Nanette Kay, CONTROL CLERK HEAD, RETAINING ROOM CUTTER [facility] PN [facility] E METAL CASTER Jie Sheehan RN - 03/12/2017 11:49 AM [...] 02/13/17 Prescribing provider- rice No future appointments. E METAL CASTER documented in this encounter Plan of Treatment Not on filedocumented as of this encounter Visit Diagnoses Not on filedocumented in this encounter Care Teams Dry Finisher Relationship Specialty Start Date End Date Jie Farah DO PCP - General Family Practice 04/05/16 [address] [place] [address] documented as of this encounter
--- OUTSIDE RECORDS SUMMARY | 2021-11-01 06:39 | XMS_ITS | Encounter Summary ---
:1985 Author Organization [facility] Address [address] [place] [address] Care Team Providers Name Role Phone Jie Farah DO Primary Care Provider Reason for Visit Reason Comments Sore Throat Encounter Details Date Type Department Care Team Description 05/18/2019 Nurse Triage [facility] Nurse Line Jie Farah, DO Sore Throat [address] [facility] 3850 [place], [place] [address] [place] [address] [phone] Social History Tobacco Use Types Packs/Day Years [...] [facility] also returned from [facility] on 05/07/19. Problem list reviewed as related to this call. Reason for Disposition ? ? [1] Sore throat is the only symptom AND [2] sore throat present < 48 hours Protocols used: SORE [id number] documented in this encounter Plan of Treatment Not on filedocumented as of this encounter Visit Diagnoses Not on filedocumented in this encounter Care Teams Blacksmith Farm Relationship Specialty Start Date End Date Jie Farah DO PCP - General Family Practice 04/05/16 [address] [place] [address] documented as of this encounter
--- OUTSIDE RECORDS SUMMARY | 2021-11-01 06:39 | XMS_ITS | Encounter Summary ---
:1985 Author Organization [facility] Address [address] [place] [address] Care Team Providers Name Role Phone Jie Farah DO Primary Care Provider Reason for Visit Reason Onset Date Comments Refill 02/18/2018 Encounter Details Date Type Department Care Team Description 02/18/2018 Refill [facility] 3850 Family Jie Roper, Refill Medicine [address] [place] [address] [place], [place] [address] [phone] Social History Tobacco Use Types Packs/Day Years [...] AM CST See Refill Encounter dated 02/12/18 S FITTER documented in this encounter Plan of Treatment Not on filedocumented as of this encounter Visit Diagnoses Not on filedocumented in this encounter Care Teams High Scaler Relationship Specialty Start Date End Date Jie Farah DO PCP - General Family Practice 04/05/16 [address] [place] [address] documented as of this encounter
--- OUTSIDE RECORDS SUMMARY | 2021-11-01 06:39 | XMS_ITS | Encounter Summary ---
:1985 Author Organization [employer] [facility] Address [address] [place] [address] Care Team Providers Name Role Phone Jie Farah DO Primary Care Provider Reason for Visit Reason Comments MEDICATION CHECK migraine Encounter Details Date Type Department Care Team Description 02/23/2018 Office Visit [facility] [address] Jie Farah, [place] graine without aura Family Medicine DO and without status [address] francisco rainosus, not [address] intractable (Primary [place], [place] Dx ) [phone] (Wo rk) Social History Tobacco Use Types [...] Comments Blood Pressure 108/75 02/23/2018 9:02 AM RESIN PAINTER Pulse 73 02/23/2018 9:02 AM RESIN PAINTER Temperature - - Respiratory Rate - - Oxygen Saturation - - Inhaled Oxygen Concentration - - Weight 51.3 kg (113 lb) 02/23/2018 9:02 AM RESIN PAINTER Height - - Body Mass Index 18.1 04/09/2017 3:19 PM RESIN PAINTER documented in this encounter Patient Instructions Patient InstructionsJj Campoverde, BLUEPRINT MAKER - 02/23/2018 9:00 AM CST Images from [...] for dessert. Limit deep-fried vegetables, such as bahamian fries. ? Choose lean protein, such as [...] that works best for you. ? For [facility], call [phone]. ? For [facility], call [phone]. ? For [facility], call [phone]. ? For [facility], call [phone]. ? For [facility], call [phone]. (06/2017) ??[facility] N PAINTER documented in this encounter Progress Notes Jj Campoverde CMA - 02/23/2018 9:00 AM CST Medications needing refills have been pended for year supply. Requested Prescriptions Pending Prescriptions Disp Refills ??? SUMAtriptan (IMITREX) 100 MG tablet 54 Tablet 0 Sig: Take 1 Tablet by mouth as needed for Migraine. May repeat after 2 hours if needed. Max 2 tabs/24 hours. Max 9 days/month N PAINTER Jie Farah DO - 02/23/2018 9:00 AM [...] D as well to help prevent migraines. N PAINTER documented in this encounter Plan of Treatment Not on filedocumented as of this encounter Visit Diagnoses Diagnosis Migraine without aura and without status migrainosus, not intractable - Primary Migraine without aura, without mention o f intractable migraine without mention of status migrainosus documented in this encounter Care Teams Reimbursement Analyst Relationship Specialty Start Date End Date Jie Farah DO PCP - General Family Practice 04/05/16 [address] [place] [address] documented as of this encounter
--- OUTSIDE RECORDS SUMMARY | 2021-11-01 06:39 | XMS_ITS | Encounter Summary ---
:1985 Author Organization [facility] Address [address] [place] [address] Care Team Providers Name Role Phone Jie Farah DO Primary Care Provider Reason for Visit Reason Comments Refill SUMAtriptan (IMITREX) 100 MG tablet [Pharmacy Med Name: SUMATRIPTAN SUCC 100 MG TABLET] Encounter Details Date Type Department Care Team Description 06/19/[address] [facility] [address] Kennedy, Refill (SUMAtriptan Family Medicine [address] [place] [address] (IMITREX) 100 MG tablet [address] [Pharmacy Med Name: [address]vd. [place] SUMATRIPTAN SUCC 100 [place] [address] TABLET]) [id number] [phone] Social History Tobacco Use Types Packs/Day Years [...] 76 mm Hg on 05/14/2016 Powered by [employer] Reference: [id number], 06/19/2016 7:15:38 AM CDT, Pool: [id number] FM REFILL ([id number]) documented in this encounter Plan of Treatment Not on filedocumented as of this encounter Visit Diagnoses Not on filedocumented in this encounter Care Teams Network Planner Relationship Specialty Start Date End Date Jie Farah DO PCP - General Family Practice 04/05/16 [address] [place] [address] documented as of this encounter
--- OUTSIDE RECORDS SUMMARY | 2021-11-01 06:39 | XMS_ITS | Encounter Summary ---
:1985 Author Organization [facility] Address [address] [place] [address] Care Team Providers Name Role Phone Jie Farah DO Primary Care Provider Reason for Visit Reason Onset Date Comments Refill 07/15/2017 Encounter Details Date Type Department Care Team Description 07/15/2017 Refill [facility] 38[address] Family Jie Roper DO Refill Medicine [address] [place] [address] [place], [place] [address] [phone] Social History Tobacco Use Types Packs/Day Years [...] Medication Renewal Request Original authorizing provider: DO iSmona Espinoza would like a refill of the following medications: SUMAtriptan (IMITREX) 100 MG tablet [Jie Farah DO] Preferred pharmacy: [facility] [id number] [place] [facility] [address] [facility] Comment: Good Morning, Would it be possible to get a renewal of this prescription? It has been really beneficial in helping with headaches. I apologize if this was a duplication of the pharmacy. Thank you. Kimberley documented in this encounter Plan of Treatment Not on filedocumented as of this encounter Visit Diagnoses Not on filedocumented in this encounter Care Teams Executive Associate Relationship Specialty Start Date End Date Jie Farah DO PCP - General Family Practice 04/05/16 [address] [place] [address] documented as of this encounter
--- OUTSIDE RECORDS SUMMARY | 2021-11-01 06:39 | XMS_ITS | Encounter Summary ---
:1985 Author Organization [facility] Address [address] [place] [address] Care Team Providers Name Role Phone Jie Farah DO Primary Care Provider Encounter Details Date Type Department Care Team Description 05/06/2020 Immunization [place] COVWY Encounter for Vaccine Program administration of vaccine [address] (Primary Dx) [place], [place] [address] Social History Tobacco Use Types [...] Primary documented in this encounter Care Teams Short Order Cook Relationship Specialty Start Date End Date Jie Farah DO PCP - General Family Practice 04/05/16 [address] [place] [address] documented as of this encounter
--- OUTSIDE RECORDS SUMMARY | 2021-11-01 06:39 | XMS_ITS | Encounter Summary ---
:1985 Author Organization [facility] Address [address] [place] [address] Care Team Providers Name Role Phone Jie Mckeon DO Primary Care Provider Reason for Visit Reason Onset Date Comments Refill 06/01/2020 SUMAtriptan (IMITREX ) 100 MG tablet Encounter Details Date Type Department Care Team Description 06/01/2020 Refill [facility] [address] Jie Mckeon, Re fill (SUMAtriptan Family Medicine DO (IMITREX) 100 MG [address] [place] [address] [place] tab let) [place] [address] [phone] (Wo rk) Social History Tobacco Use Types [...] Villalpando RN 06/02/2020, 9:40 AM Interface, Out ProspectWise Prov Query - 06/01/2020 10:42 AM CDT [...] MCKEON) Next scheduled visit: None Powered by [employer], Reference: [id number], 06/01/2020 10:42:02 AM CDT, Pool: [id number] FM REFILL ([id number]) documented in this encounter Plan of Treatment Not on filedocumented as of this encounter Visit Diagnoses Not on filedocumented in this encounter Care Teams Phlebotomist Supervisor/Instructor Relationship Specialty Start Date End Date Jie Mckeon, DO PCP - General Family Practice 04/05/16 [address] [place] [address] documented as of this encounter
--- OUTSIDE RECORDS SUMMARY | 2021-11-01 06:39 | XMS_ITS | Encounter Summary ---
:1985 Author Organization [employer] Address [address] [place] [address] Care Team Providers Name Role Phone Jie Farah DO Primary Care Provider Reason for Visit Reason Comments PAIN, SINUS Encounter Details Date Type Department Care Team Description 04/07/2017 Hospital Encounter [facility] Justine Winn, Acute sinusitis with Care PA-C symptoms > 10 days [address] [address] [phone] Social History Tobacco Use Types Packs/Day Years [...] Comments Blood Pressure 118/80 04/07/2017 5:36 PM AUTHORIZATION SPECIALIST Pulse 60 04/07/2017 5:36 PM AUTHORIZATION SPECIALIST Temperature 36.8 ??C (98.3 ??F) 04/07/2017 5:36 PM AUTHORIZATION SPECIALIST Respiratory Rate 16 04/07/2017 5:36 PM AUTHORIZATION SPECIALIST Oxygen Saturation - - Inhaled Oxygen Concentration [...] ER right away for recheck if concerns. ORIZATION SPECIALIST AttachmentsThe following attachments cannot be sent through Care Everywhere. SINUSITIS (WOLOF)documented in this encounter Medications at Time of [...] for recheck if concerns. Discharge References/Attachments SINUSITIS (WOLOF) ORIZATION SPECIALIST documented in this encounter Plan of Treatment Not on filedocumented as of this encounter Visit Diagnoses Diagnosis Acute sinusitis with symptoms > 10 days Acute sinusitis, unspecified Triage Assessment Note - Katelyn Neil RN - 04/07/2017 5:34 PM CST C/o sinus pain, congestion, decreased smell sensation. Sx started Sat. ORIZATION SPECIALIST documented in this encounter Care Teams Pipe Processor Relationship Specialty Start Date End Date Jie Farah DO PCP - General Family Practice 04/05/16 [address] [place] [address] documented as of this encounter
--- OUTSIDE RECORDS SUMMARY | 2021-11-01 06:39 | XMS_ITS | Encounter Summary ---
:1985 Author Organization [facility] Address [address] [place] [address] Care Team Providers Name Role Phone Jie Mckeon DO Primary Care Provider Reason for Visit Reason Comments Refill SUMAtriptan (IMITREX) 100 MG tablet Encounter Details Date Type Department Care Team Description 01/27/2020 Refill [facility] 3850 Jie Mckeon, Re fill (SUMAtriptan Family Medicine DO (IMITREX) 100 MG [address] [place] [address] [place] [address] tab let) [place] [phone] (Wo rk) Social History Tobacco Use Types [...] Tablet by mouth as needed for Migraine. CHER Interface, Out Assurely Prov Query - 01/27/2020 12:54 PM CST [...] MCKEON) Next scheduled visit: None Powered by [employer], Reference: [id number], 01/27/2020 12:54:06 PM DETACHER, Pool: PN REFILL WIZARD ADMIN ([id number]) CHER Adan Archibald - 01/27/2020 12:53 PM CST [...] refills) Please route to: Refill Pool (P [id number]) [place] FP Pool [facility] Patients ONLY (P [id number]) [facility] [place] ONLY (P [phone]) CHER documented in this encounter Plan of Treatment Not on filedocumented as of this encounter Visit Diagnoses Not on filedocumented in this encounter Care Teams Local Coordinator Relationship Specialty Start Date End Date Jie Mckeon DO PCP - General Family Practice 04/05/16 [address] [place] [address] documented as of this encounter
--- OUTSIDE RECORDS SUMMARY | 2021-11-01 06:39 | XMS_ITS | Encounter Summary ---
:1985 Author Organization [facility] Address [address] [place] [address] Care Team Providers Name Role Phone MireilleJie jones Shweta ZARAGOZA Primary Care Provider Reason for Visit Reason Comments Refill [place] Encounter Details Date Type Department Care Team Description 02/12/2017 [facility]ill [facility] Nicholas Kay A PRN, BLACK JACK DEALER Refill ([place]) Obstetrics/Gynecolog y [address] [facility] 5th [place] [address] [place], [place] [phone] (Wo rk) Social History Tobacco Use Types [...] Provider: NICHOLAS KAY Ordering User: RUIZ RENEE OGRAPHIC STRIPPER documented in this encounter Plan of Treatment Not on filedocumented as of this encounter Visit Diagnoses Not on filedocumented in this encounter Care Teams Veterinary Inspector Relationship Specialty Start Date End Date Jie Farah DO PCP - General Family Practice 04/05/16 [address] [place] [address] documented as of this encounter
--- OUTSIDE RECORDS SUMMARY | 2021-11-01 06:39 | XMS_ITS | Clinical Summary ---
:1985 Author Organization [facility] Address [address] [place] [address] Care Team Providers Name Role Phone Jei Farah DO Primary Care Provider Source Comments [...] for each transition of care or referral. [facility] Allergies No known active allergies Medications Medication [...] Comments Blood Pressure 97/57 02/15/2019 9:07 AM VALUE STREAM MANAGER Pulse 61 02/15/2019 9:07 AM VALUE STREAM MANAGER Temperature 36.8 ??C (98.3 ??F) 04/07/2017 5:36 PM VALUE STREAM MANAGER Respiratory Rate 16 04/07/2017 5:36 PM VALUE STREAM MANAGER Oxygen Saturation 100% 09/25/2014 9:05 AM CDT Inhaled Oxygen Concentration - - Weight 54.7 kg (120 lb 9.6 oz) 02/15/2019 9:07 AM VALUE STREAM MANAGER Height 168.3 cm (5' 6.25) 04/09/2017 3:19 PM VALUE STREAM MANAGER Body Mass Index 19.32 04/09/2017 3:19 PM VALUE STREAM MANAGER Plan of Treatment Health Maintenance Due Date [...] Dates Phone Addre ss Type Group [facility] [id number] 2016-Present [address] [address] [place] [address] (Work) Simona Che Personal/Famil Self 1985 [address] (Home) [address] [phone] APARTMENT [address] 6 (Work) [place] [address] Bandar Che Personal/Famil Self 04/23/1960 [address] (Home) [place] [phone] (Work) Advance Directives Latest Code Status on File Code Status Date Activated Date Inactivated Comments Full Code 05/28/2013 11:30 AM 05/28/2013 2:36 PM Care Teams Refueling Ramp Supervisor Relationship Specialty Start Date End Date Jie Farah DO PCP - General Family Practice 04/05/16 [address] [place] [address]
--- OUTSIDE RECORDS SUMMARY | 2021-11-01 06:40 | XMS_ITS | Encounter Summary ---
:1985 Author Organization [facility] Address [address] [place] [address] Care Team Providers Name Role Phone Denisse Sue Primary Care Provider Reason for Visit Reason Comments Refill Encounter Details Date Type Department Care Team Description 05/19/2015 [facility]ill [facility] Nanette Kay A PRN, CNP Refill Obstetrics/Gynecolog y [address] [facility] 5th [place] [address] [place], [place] [address] (Wo rk) Social History Tobacco Use Types [...] to switch pharmacies [facility] [place] and they will call [facility] [address] (which is where your prescription was sent) and they will transfer it. Thank you! Loulou Snyder TRANSACTION COORDINATOR Triage ----- Message ----- From: ODESSA CHE Sent: 05/19/2015 6:56 AM CDT To: Nanette Kay APRN, CNP Subject: Medication Renewal Request Original authorizing provider: Nanette Kay APRN, METER CHANGES RECORDS CLERK Odessa Che would like a refill of the following medications: norethindrone-ethinyl estradiol (MICROGESTIN FE 03/15, ,) 1 mg-20 mcg (21)/75 mg (7) per tablet [Nanette Kay APRN, DON] Preferred pharmacy: [facility] [address] [place] [id number] [facility] Comment: documented in this encounter Plan of Treatment Not on filedocumented as of this encounter Visit Diagnoses Not on filedocumented in this encounter Care Teams Solderer Production Line Relationship Specialty Start Date End Date Denisse Sue DO PCP - General 05/12/13 04/04/16 [address] [place], [place] [address] documented as of this encounter
--- OUTSIDE RECORDS SUMMARY | 2021-11-01 06:40 | XMS_ITS | Encounter Summary ---
:1985 Author Organization [facility] Address [address] [place] [address] Care Team Providers Name Role Phone Linette, Denisse Mane ZARAGOZA Primary Care Provider Reason for Visit Reason Comments Post-Op Check Encounter Details Date Type Department Care Team Description 06/21/2013 Office Visit [facility] [address] Elizabeth Hurtado toperative Podiatric MedSurg FAN Gilliam follow-up (Primary Dx) [address] [place] [address] [facility] [place] [phone] (Wo rk) Social History Tobacco Use Types Packs/Day Years Used Date Smoking Tobacco: Never Assessed Sex Assigned at Date Recorded Not on file documented as of this encounter Progress Notes Elizabeth Hurtado DPM - 06/21/2013 8:33 AM CDT Progress Notes signed by Elizabeth Hurtado DPM at 06/22/131621 Author: Elizabeth Hurtado DPM Service: (none) Author Type: Physician Filed: 06/22/131621 Note Time: 06/21/132144 Status: Signed Decorating And Assembly Supervisor: Elizabeth Hurtado DPM (Physician) NAME: ODESSA CHE MR#: [id number] CSN: [id number] AUTHENTICATING CLINICIAN: Elizabeth Hurtado DPM CONFIRM #: [id number] LOC: 439 CLINIC PROGRESS NOTE DATE OF [...] in Epic. ALLERGIES: Reviewed and updated in [facility]. OBJECTIVE: Incision line is well healed. [...] some scar tissue massage or use an nckp-bkh-sclflhs scar product such as a silicone gel product. In 2 weeks or so, she can gradually transfer to a regular shoe. No high-impact running or jumping activities for at least another month. Recheck with me in 1 month for reevaluation. SMS:MEDQ C: CONFIRM #: [id number] documented in this encounter Plan of Treatment Not on filedocumented as of this encounter Visit Diagnoses Diagnosis Postoperative follow-up - Primary Follow-up examination, following unspeci fied surgery documented in this encounter Care Teams Cotton Bag Clipper Relationship Specialty Start Date End Date Denisse Sue DO PCP - General 05/12/13 04/04/16 [address] [place] [address] documented as of this encounter
--- OUTSIDE RECORDS SUMMARY | 2021-11-01 06:40 | XMS_ITS | Encounter Summary ---
:1985 Author Organization [facility] Address [address] [place] [address] Care Team Providers Name Role Phone Md MINA Leigh Primary Care Provider Reason for Visit Reason Comments Annual Exam Encounter Details Date Type Department Care Team Description 07/30/[address] [facility] [address], Routine general medical examination at a health care facility (Primary Dx); Obstetrics/Gynecolog y ASSOCIATE CREATIVE DIRECTOR, STEWARD/STEWARDESS TOURIST CLASS Screening for malignant neoplasm of the cervix; [address] [place] [place] [address] Special screening examination for unspec ified chlamydial disease; [address] [facility] 5th Floor Screening for iron deficiency anemia; [place], [place] Sc reening for lipoid disorders; [phone] Need for Tdap vaccination; [phone] (Wo rk) Special screening examination for other [...] AM CDT Thank you for enrolling in Present[facility]. Please follow the instructions below to securely access your online medical record. Present[facility] allows you to send messages to your doctor, view your test results, renewyour prescriptions, schedule appointments, and more. How Do I Sign Up? 1. In your Internet browser, go to: [email or web address] 2. Click on the Sign Up Now link in the Sign In box. You will see the New Member Sign Up page. 3. Enter your Presentigo Access Code exactly as it appears below. You will not need to use this code after you???ve completed the sign-up process. If you do not sign up before the expiration date, you must request a new code. Presentigo Access Code: [email or web address] Expires: 08/29/2012 11:05 AM 4. Enter your Social Security Number ([id number]) and Date of (mm/dd/yyyy) as indicated and click Submit. You will be taken to the next sign- up page. 5. Create a Presentigo ID. This will be your Presentigo login ID and cannot be changed, so think of one that is secure and easy to remember. 6. Create a Presentigo password. You can change your password at any time. 7. Enter your Password Reset Question and Answer. This can be used at a later time if you forget your password. 8. Enter your e-mail address. You will receive e-mail notification when new information is availablein Presentigo. 9. Click Sign Up. You can now view your medical record. Additional Information If you have questions, you can call [phone] to talk to our Presentigo staff. Remember, Presentigo is NOT to be used for urgent [...] they are available. Please contact me at [phone] if questions. documented in this encounter Progress [...] Past Surgical History Procedure Laterality Date ??? Mosca tooth extraction Family History: Family History Problem [...] Order Specific Question: Ordering Provider? (, Miladys, ADVERTISING AGENT, or PA Only) Answer: NICHOLAS KAY [[id number]] ??? Tdap (BOOSTRIX) ??? Pap Smear Screening [PAPL] Order Specific Question: Ordering Provider? (Miladys Almonte, ADVERTISING AGENT, or PA Only) Answer: NICHOLAS KAY [[id number]] Order Specific Question: Is the required paper requisition completed? Answer: Yes ??? Complete Blood Count - No Diff [ABC] Standing Status: Future Number of Occurrences: 1 Standing Expiration Date: 07/30/2013 Order Specific Question: Ordering Provider? (Miladys Almonte, ADVERTISING AGENT, or PA Only) Answer: NICHOLAS KAY [[id number]] ??? Ferritin [ISACC] Standing Status: Future Number of Occurrences: 1 Standing Expiration Date: 07/30/2013 Order Specific Question: Ordering Provider? (Miladys Almonte, ADVERTISING AGENT, or PA Only) Answer: NICHOLAS KAY [[id number]] ? ? Cholesterol, Total & HDL [CHS] Standing Status: Future Number of Occurrences: 1 Standing Expiration Date: 07/30/2013 Order Specific Question: Ordering Provider? (Miladys Almonte, ADVERTISING AGENT, or PA Only) Answer: NICHOLAS KAY [[id number]] ??? HIV Antibody [HIV] Standing Status: Future Number of Occurrences: 1 Standing Expiration Date: 07/30/2013 Order Specific Question: Ordering Provider? (Miladys Almonte, ADVERTISING AGENT, or PA Only) Answer: NICHOLAS KAY [[id number]] ??? Treponemal Antibody Standing Status: Future Number of Occurrences: 1 Standing Expiration Date: 07/30/2013 Order Specific Question: Ordering Provider? (Miladys Almonte, ADVERTISING AGENT, or PA Only) Answer: NICHOLAS KAY [[id number]] ??? Hepatitis Bs Antigen [HBAG] Standing Status: Future Number of Occurrences: 1 Standing Expiration Date: 07/30/2013 Order Specific Question: Ordering Provider? (, Res, ADVERTISING AGENT, or PA Only) Answer: NICHOLAS KAY [[id number]] ??? Hepatitis C Antibody [HCAB] Standing Status: Future Number of Occurrences: 1 Standing Expiration Date: 07/30/2013 Order Specific Question: Ordering Provider? (, Res, ADVERTISING AGENT, or PA Only) Answer: NICHOLAS KAY [[id number]] ??? Urinalysis Routine Hold Culture (URH) Standing Status: Future Number of Occurrences: 1 Standing Expiration Date: 07/30/2013 Order Specific Question: Ordering Provider? (, Res, ADVERTISING AGENT, or PA Only) Answer: NICHOLAS KAY [[id number]] Order Specific Question: Urine Collection Type Answer: Urine:clean catch ??? Pap Smear Patient Instructions Thank you for enrolling in Present[facility]. Please follow the instructions below to securely access your online medical record. Presentigo allows you to send messages to your doctor, view your test results, renewyour prescriptions, schedule appointments, and more. How Do I Sign Up? 1. In your Internet browser, go to: [email or web address] 2. Click on the Sign Up Now link in the Sign In box. You will see the New Member Sign Up page. 3. Enter your Presentigo Access Code exactly as it appears below. You will not need to use this code after you???ve completed the sign-up process. If you do not sign up before the expiration date, you must request a new code. Presentigo Access Code: [email or web address] Expires: 08/29/2012 11:05 AM 4. Enter your Social Security Number (xxx-xx-xxxx) and Date of (mm/dd/yyyy) as indicated and click Submit. You will be taken to the next sign- up page. 5. Create a Presentigo ID. This will be your Presentigo login ID and cannot be changed, so think of one that is secure and easy to remember. 6. Create a Presentigo password. You can change your password at any time. 7. Enter your Password Reset Question and Answer. This can be used at a later time if you forget your password. 8. Enter your e-mail address. You will receive e-mail notification when new information is availablein Presentigo. 9. Click Sign Up. You can now view your medical record. Additional Information If you have questions, you can call [phone] to talk to our Presentigo staff. Remember, Presentigo is NOT to be used for urgent [...] they are available. Please contact me at [phone] if questions. Current Control:N/A documented in this [...] Component Value Ref [facility] Range Method Time Signature Source [...] Kay APRN, CNP LAB_1 Performing Organization Address [facility] Phon e Number HP CONVERSION Pap Smear (07/30/2012 12:02 PM CDT) Specimen (Source) Anatomical Collection Method Collection Time Re ceived Time Location / / Volume Laterality 07/30/2012 12:02 PM CDT Narrative HP CONVERSION - 08/04/2012 3:57 PM CDT FINAL GYNECOLOGICAL CYTOLOGY REPORT Pathology #: [id number] ?Date Obtained: 07/30/2012 ? Date Received: 07/31/2012 [...] Kay APRN, CNP LAB_1 Performing Organization Address [facility] Phon e Number HP CONVERSION Pap Smear Screening (07/30/2012 12:02 PM CDT) P athologist Signature PAP Routine Collected HP CONVERSION Specimen Anatomical Collection Method Collection Time Receive d Time (Source) Location / / Volume Laterality 07/30/2012 12:02 07/31/2012 5:33 PM CDT AM CDT Nicholas Kay APRN, CNP LAB_1 Performing Organization Address [facility] Phon e Number HP CONVERSION documented in this encounter Visit Diagnoses Diagnosis Routine general medical examination at a health care facility - Primary Screening for malignant neoplasm of the cervix Special screening examination for unspec ified chlamydial disease Screening for iron deficiency anemia Screening for lipoid disorders Need for Tdap vaccination Need for prophylactic vaccination with c ombined nfhuqpqrya-mhmlqzp-pbmbfunmr (DTP) vaccine Special screening examination for other specified viral diseases Bloating Flatulence, eructation, and gas pain Urinary urgency Urgency of urination documented in this encounter Care Teams Head Well Puller Relationship Specialty Start Date End Date Md Leigh MD PCP - General 05/26/10 05/11/13 [place] [address] documented as of this encounter
--- OUTSIDE RECORDS SUMMARY | 2021-11-01 06:40 | XMS_ITS | Encounter Summary ---
:1985 Author Organization [facility] Address [address] [place] [address] Care Team Providers Name Role Phone Md MINA Leigh Primary Care Provider Reason for Visit Reason Comments MASS Encounter Details Date Type Department Care Team Description 03/31/2013 Initial Consult [facility] [address] Elizabeth Hurtado Left ankle pain (Primary Dx); Podiatric MedSurrossy Gilliam DPM Localized superficial swelling, mass, or lump [address] [facility] [address] [facility] [place] [address] [phone] Social History Tobacco Use Types Packs/Day Years Used Date Smoking Tobacco: Never Assessed Sex Assigned at Date Recorded Not on file documented as of this encounter Progress Notes Elizabeth Hurtado DPM - 03/31/2013 1:08 PM CST Progress Notes signed by Elizabeth Hurtado DPM at 04/05/13 1606 Author: Elizabeth Hurtado DPM Service: (none) Author Type: Physician Filed: 04/05/13 1605 Note Time: 03/31/13 1435 Status: Signed Cerner Analyst: Elizabeth Hurtado DPM (Physician) NAME: ODESSA CHE MR#: [id number] CSN: [id number] AUTHENTICATING CLINICIAN: Elizabeth Hurtado DPM CONFIRM #: [id number] LOC: 439 CLINIC PROGRESS NOTE DATE OF [...] hyperhidrosis. CURRENT MEDICATIONS: Reviewed and updated in Click Contact. ALLERGIES: No known drug allergies. FAMILY HISTORY: [...] to discuss results. SMS:MEDQ C: CONFIRM #: [id number] LAW EXAMINER documented in this encounter Plan of Treatment Not on filedocumented as of this encounter Visit Diagnoses Diagnosis Left ankle pain - Primary Pain in joint, ankle and foot Localized superficial swelling, mass, or lump documented in this encounter Care Teams Narrow Fabric Calenderer Relationship Specialty Start Date End Date Md Leigh MD PCP - General 05/26/10 05/11/13 [place] [address] documented as of this encounter
--- OUTSIDE RECORDS SUMMARY | 2021-11-01 06:40 | XMS_ITS | Encounter Summary ---
:1985 Author Organization [facility] Address [address] [place] [address] Care Team Providers Name Role Phone Md MINA Leigh Primary Care Provider Encounter Details Date Type Department Care Team Description 01/23/2011 Notes/Orders [facility] Nanette Bravo, [address] APRN, [place] [address] [place] [address] [address] [place] [phone] (Wo rk) Social History Tobacco Use Types Packs/Day Years Used Date Smoking Tobacco: Never Assessed Sex Assigned at Date Recorded Not on file documented as of this encounter Plan of Treatment Not on filedocumented as of this encounter Visit Diagnoses Not on filedocumented in this encounter Care Teams Chart Computer Relationship Specialty Start Date End Date Md Leigh MD PCP - General 05/26/10 05/11/13 [place], [place] [address] documented as of this encounter
--- OUTSIDE RECORDS SUMMARY | 2021-11-01 06:40 | XMS_ITS | Encounter Summary ---
:1985 Author Organization [facility] Address [address] [place] [address] Care Team Providers Name Role Phone Md MINA Leigh Primary Care Provider Encounter Details Date Type Department Care Team Description 06/20/2010 Office Visit [facility] [address] Nanette Kay APRN, CNP Obstetrics/Gynecolog y [address] [facility] 5th Floor [facility] [place] [address] [phone] Social History Tobacco Use Types Packs/Day Years [...] filedocumented in this encounter Care Teams Director Diversity Relationship Specialty Start Date End Date Md Leigh MD PCP - General 05/26/10 05/11/13 [place] [address] documented as of this encounter
--- OUTSIDE RECORDS SUMMARY | 2021-11-01 06:40 | XMS_ITS | Encounter Summary ---
:1985 Author Organization [facility] Address [address] [place] [address] Care Team Providers Name Role Phone Md MINA Leigh Primary Care Provider Reason for Visit Reason Comments INJURY, KNEE Encounter Details Date Type Department Care Team Description 10/31/2011 Office Visit [facility] [place] Elliott patella (Primary Dx) [address] [place] [address] [place], [place] [phone] (Wo rk) Social History Tobacco Use Types Packs/Day Years Used Date Smoking Tobacco: Never Assessed Sex Assigned at Date Recorded Not on file documented as of this encounter Progress Notes Angelica Thomas MD - 10/31/2011 4:48 PM CDT Progress Notes signed by Angelica Thomas MD at 11/06/11 5641 Author: Angelica Thomas MD Service: (none) Author Type: Physician Filed: 11/06/11 1625 Note Time: 10/31/11 1648 Status: Signed Jewelry Estimator: Angelica Thomas MD (Physician) NAME: ODESSA CHE VISIT: [id number] DICTATING CLINICIAN: ANGELICA THOMAS MD JOB: [id number] Med JOB: [id number] LOC: 3711 CLINIC PROGRESS NOTE DATE OF [...] the bike and recently on the elliptical small engine trainer with no symptoms. OBJECTIVE: There is [...] and symptoms to monitor. We also discussed terminal superintendent outcomes may be affected by this injury [...] Primary documented in this encounter Care Teams Postal Service Sectional Center Manager Relationship Specialty Start Date End Date Md Lu, MD PCP - General 05/26/10 05/11/13 [place] [address] documented as of this encounter
--- OUTSIDE RECORDS SUMMARY | 2021-11-01 06:40 | XMS_ITS | Encounter Summary ---
:1985 Author [facility] Address [address] [place] [address] Care Team Providers Name Role Phone Md MINA Leigh Primary Care Provider Encounter Details Date Type Department Care Team Description 01/23/2011 Lab Visit [facility] Hyperhidrosis; [address] [place], [place] [address] Social History Tobacco Use Types Packs/Day Years Used Date Smoking Tobacco: Never Assessed Sex Assigned at Date Recorded Not on file documented as of this encounter Progress Notes Nicholas Weaver APRN, CNP - 03/07/2011 3:22 PM CST remind patient to schedule her hemoglobin lab. Nicholas Weaver APRN, CNP - 01/25/2011 5:51 PM SCHOOL CHILD CARE ATTENDANT Addended by: NICHOLAS WEAVER on: 01/25/2011 Modules [...] Re sults for this (INCL IRON) PM SCHOOL CHILD CARE ATTENDANT procedure are i n the results section. THYROID STIMULATING Routine 01/23/2011 3:48 Hyperhidrosis Resu lts for this HORMONE PM SCHOOL CHILD CARE ATTENDANT procedure are i n the results section. COMPLETE BLOOD Routine 01/23/2011 3:48 Hyperhidrosis Results f or this COUNT-NO DIFF PM SCHOOL CHILD CARE ATTENDANT procedure are in the results section. FERRITIN Routine 01/23/2011 3:48 Hyperhidrosis Results for this PM SCHOOL CHILD CARE ATTENDANT procedure are i n the results section. VENIPUNCTURE (JEFF) Routine 01/23/2011 3:41 Hyperhidrosis Resu lts for this PM SCHOOL CHILD CARE ATTENDANT procedure are i n the results section. documented in this encounter Results THYROID STIMULATING HORMONE (01/23/2011 3:48 PM SCHOOL CHILD CARE ATTENDANT) athologist Signature Thyroid 0.98 0.20 - HP CONVERSION Stimulating 4.50 mIU/L Hormone Specimen Anatomical Collection Method Collection Time Receive d Time (Source) Location / / Volume Laterality 01/23/2011 3:48 PM 1 7:58 SCHOOL CHILD CARE ATTENDANT PM SCHOOL CHILD CARE ATTENDANT Nicholas Weaver APRN, CNP LAB_1 Performing Organization Address City/State/ZIP Code Phon e Number HP CONVERSION (ABNORMAL) IRON BINDING CAPACITY (INCL IRON) (01/23/2011 3:48 PM SCHOOL CHILD CARE ATTENDANT) [facility] gist Method Time Signature Iron, Serum [...] Volume Laterality 01/23/2011 3:48 PM 1 7:58 SCHOOL CHILD CARE ATTENDANT PM SCHOOL CHILD CARE ATTENDANT Nicholas Weaver APRN, CNP LAB_1 Performing Organization Address City/State/ZIP Code Phon e Number HP CONVERSION (ABNORMAL) Ferritin (01/23/2011 3:48 PM SCHOOL CHILD CARE ATTENDANT) athologist Signature Ferritin Serum <1 (L) 10 - 291 HP CONVERSION ng/mL Specimen Anatomical Collection Method Collection Time Receive d Time (Source) Location / / Volume Laterality 01/23/2011 3:48 PM 1 7:58 SCHOOL CHILD CARE ATTENDANT PM SCHOOL CHILD CARE ATTENDANT Nicholas Weaver APRN, CNP LAB_1 Performing Organization Address City/[facility] Phon e Number HP CONVERSION (ABNORMAL) Hemogram/Plts (01/23/2011 3:48 PM SCHOOL CHILD CARE ATTENDANT) [facility] gist Method Time Signature White Blood [...] Volume Laterality 01/23/2011 3:48 PM 1 3:48 SCHOOL CHILD CARE ATTENDANT PM SCHOOL CHILD CARE ATTENDANT Narrative HP CONVERSION - 01/23/2011 4:03 PM SCHOOL CHILD CARE ATTENDANT Performed at [facility], [address] [place] [address] Nicholas Weaver APRN, CNP LAB_1 Performing Organization Address [facility] [address]/[facility] Phon e Number HP CONVERSION VENIPUNCTURE (JEFF) (01/23/2011 3:41 PM SCHOOL CHILD CARE ATTENDANT) athologist Signature Venipuncture Done HP CONVERSION Specimen (Source) Anatomical Collection Method Collection Time Re ceived Time Location / / Volume Laterality 01/23/2011 3:41 PM SCHOOL CHILD CARE ATTENDANT Narrative HP CONVERSION - 01/23/2011 3:41 PM SCHOOL CHILD CARE ATTENDANT Performed at [facility], [address] [place] [address] Nicholas Weaver APRN, CNP LAB_1 Performing Organization Address [facility] Phon e Number HP CONVERSION documented in this encounter Visit Diagnoses Diagnosis Hyperhidrosis Primary focal hyperhidrosis Anemia Anemia, unspecified documented in this encounter Care Teams Heart Coordinator Relationship Specialty Start Date End Date Md Leigh MD PCP - General 05/26/10 05/11/13 [place] [address] documented as of this encounter
--- OUTSIDE RECORDS SUMMARY | 2021-11-01 06:40 | XMS_ITS | Encounter Summary ---
:1985 Author Organization [facility] Address [address] [place] [address] Care Team Providers Name Role Phone Linette, Denisse Mane ZARAGOZA Primary Care Provider Reason for Visit Reason Comments Post-Op Check Encounter Details Date Type Department Care Team Description 07/21/2013 Office Visit [facility] [address] toperative Podiatric MedSurg FAN Gilliam follow-up (Primary Dx) [address] [place] [address] [facility] [place] [phone] (Wo rk) Social History Tobacco Use Types Packs/Day Years Used Date Smoking Tobacco: Never Assessed Sex Assigned at Date Recorded Not on file documented as of this encounter Progress Notes Elizabeth Hurtado DPM - 07/21/2013 9:05 AM CDT Progress Notes signed by Elizabeth Hurtado DPM at 07/21/13 7542 Author: Elizabeth Hurtado DPM Service: (none) Author Type: Physician Filed: 07/21/13 4326 Note Time: 07/21/131217 Status: Signed Infantry Indirect Fire Crewmember: Elizabeth Hurtado DPM (Physician) NAME: ODESSA CHE MR#: [id number] CSN: [id number] AUTHENTICATING CLINICIAN: Elizabeth Hurtado DPM CONFIRM #: [id number] LOC: 439 CLINIC PROGRESS NOTE DATE OF [...] another month. She can continue with an bfwu-kbi-bbupsqa scar product, such as a silicone gel product. Will release her today since she is doing quite well. Physical therapy referral was placed in case she would like to proceed with that if needed. SMS:MEDQ C: CONFIRM #: [id number] documented in this encounter Plan of Treatment Not on filedocumented as of this encounter Visit Diagnoses Diagnosis Postoperative follow-up - Primary Follow-up examination, following unspeci fied surgery documented in this encounter Care Teams Director Of Midwifery/Staff Midwife Relationship Specialty Start Date End Date Denisse Sue DO PCP - General 05/12/13 04/04/16 [address] [place] [address] documented as of this encounter
--- OUTSIDE RECORDS SUMMARY | 2021-11-01 06:40 | XMS_ITS | Encounter Summary ---
:1985 Author Organization [facility] Address [address] [place] [address] Care Team Providers Name Role Phone Denisse Sue Primary Care Provider Reason for Visit Reason Comments Post-Op Check Encounter Details Date Type Department Care Team Description 06/14/2013 Office Visit [facility] [address] Nurse, P3900 Pod Local ized superficial Podiatric MedSurg swelling, mass, or lump [address] (Primary Dx) [place] [address] Social History Tobacco Use Types Packs/Day Years [...] number to call with any concerns is [phone] documented in this encounter Progress Notes Priscilla [...] Primary documented in this encounter Care Teams Webbing Supervisor Relationship Specialty Start Date End Date Denisse Sue DO PCP - General 05/12/13 04/04/16 [address] [place], [place] [address] documented as of this encounter
--- OUTSIDE RECORDS SUMMARY | 2021-11-01 06:40 | XMS_ITS | Encounter Summary ---
:1985 Author Organization [facility] Address [address] [place] [address] Care Team Providers Name Role Phone Md MINA Leigh Primary Care Provider Reason for Visit Reason Comments Follow-up Encounter Details Date Type Department Care Team Description 09/10/2011 Office Visit [facility] Quiroz of [place] MD Elliott patella (Primary Dx) [address] [place] [address] [place], [place] [phone] (Wo rk) Social History Tobacco Use Types Packs/Day Years Used Date Smoking Tobacco: Never Assessed Sex Assigned at Date Recorded Not on file documented as of this encounter Progress Notes Angelica Thomas MD - 09/10/2011 3:42 PM CDT Progress Notes signed by Angelica Thomas MD at 09/12/11 8830 Author: Angelica Thomas MD Service: (none) Author Type: Physician Filed: 09/12/111718 Note Time: 09/10/11 1542 Status: Signed Office Equipment Mechanic: Angelica Thomas MD (Physician) NAME: ODESSA TELLEZ VISIT: [id number] DICTATING CLINICIAN: ANGELICA THOMAS MD JOB: [id number] Med JOB: [id number] LOC: 3711 CLINIC PROGRESS NOTE DATE OF [...] Primary documented in this encounter Care Teams Meat Process Worker Relationship Specialty Start Date End Date Md Leigh MD PCP - General 05/26/10 05/11/13 [place] [address] documented as of this encounter
--- OUTSIDE RECORDS SUMMARY | 2021-11-01 06:40 | XMS_ITS | Encounter Summary ---
:1985 Author Organization [facility] Address [address] [place] [address] Care Team Providers Name Role Phone Denisse Sue Primary Care Provider Reason for Visit Reason Comments Post-Op Check Encounter Details Date Type Department Care Team Description 05/31/2013 Office Visit [facility] 39[address] Nurse, P3900 Pod Local ized superficial Podiatric MedSurg swelling, mass, or lump [address] (Primary Dx) [place] [address] Social History Tobacco Use Types Packs/Day Years [...] number to call with any concerns is [phone] documented in this encounter Progress Notes Priscilla [...] Primary documented in this encounter Care Teams Client Resource Specialist Relationship Specialty Start Date End Date Denisse Sue DO PCP - General 05/12/13 04/04/16 [address] [place] [address] documented as of this encounter
--- OUTSIDE RECORDS SUMMARY | 2021-11-01 06:40 | XMS_ITS | Encounter Summary ---
:1985 Author Organization [email or web address] Address [address] [place] [address] Care Team Providers Name Role Phone Denisse Sue Primary Care Provider Reason for Visit Reason Comments Post-Op Check Encounter Details Date Type Department Care Team Description 06/07/2013 Office Visit [facility] 3900 Nurse, P3900 Pod Local ized superficial Podiatric MedSurg swelling, mass, or lump [address] (Primary Dx) [place] [address] Social History Tobacco Use Types Packs/Day Years [...] number to call with any concerns is [phone] documented in this encounter Progress Notes Priscilla [...] Primary documented in this encounter Care Teams Co Director Relationship Specialty Start Date End Date Denisse Sue DO PCP - General 05/12/13 04/04/16 [address] [place] [address] documented as of this encounter
--- OUTSIDE RECORDS SUMMARY | 2021-11-01 06:40 | XMS_ITS | Encounter Summary ---
:1985 Author [facility] Address [address] [place] [address] Care Team Providers Name Role Phone Denisse Sue DO Primary Care Provider Reason for Visit Reason Comments PRE-OP EXAM Encounter Details Date Type Department Care Team Description 05/12/2013 Pre-Op Visit [place] [address] Denisse Sue DO Preop examination (Primary Dx); Family Medicine [address] Anemia [address] [facility] [place] [address] [id number] [phone] Social History Tobacco Use Types Packs/Day Years [...] Sue DO Primary care physician: Denisse Sue [phone] CHIEF COMPLAINT Pre-Operative Evaluation ANTICIPATED PROCEDURE Left [...] Past Surgical History Procedure Laterality Date ??? [place] tooth extraction Family History Problem Relation Age [...] Concern Simona Che is a patient at [facility]. For health reasons Kimberley would benefit from an ergonomic standing desk. Please feel free to contact me with any further questions. Comments: Underwood DO MATIC DIE CUTTING MACHINE OPERATOR documented in this encounter Plan of Treatment Not on filedocumented as of this encounter Visit Diagnoses Diagnosis Preop examination - Primary Preoperative examination, unspecified Anemia Anemia, unspecified documented in this encounter Care Teams Stripper Black And White Relationship Specialty Start Date End Date Denisse Sue DO PCP - General 05/12/13 04/04/16 [address] [place] [address] documented as of this encounter
--- OUTSIDE RECORDS SUMMARY | 2021-11-01 06:40 | XMS_ITS | Encounter Summary ---
:1985 Author Organization [employer] Address [address] [place] [address] Care Team Providers Name Role Phone Linette, Denisse Mane DO Primary Care Provider Encounter Details Date Type Department Care Team Description 05/28/2013 Hospital Encounter [facility] [address]urt[address] M, Mall Bld Ambul Surge ry DPM [address] [place] [address] [phone] (Wo rk) Social History Tobacco Use Types [...] signed by Elizabeth Hurtado DPM at 05/31/13 0931 Author: Elizabeth Hurtado DPM Service: (none) Author Type: Physician Filed: 05/31/13 0951 Note Time: 05/28/13 1328 Status: Signed Mask Inspector: Elizabeth Hurtado DPM (Physician) NAME: ODESSA CHE MR#: [id number] CSN: [id number] AUTHENTICATING CLINICIAN: Elizabeth Hurtado DPM CONFIRM #: [id number] LOC: 1 OPERATIVE REPORT DATE OF OPERATION: [...] 6 weeks postoperatively. SMS:MEDQ C: CONFIRM #: [id number] Elizabeth Hurtado DPM - 05/28/2013 11:28 AM [...] Results Pathology Report (05/28/2013 7:00 AM CDT) [facility] gist Method Time Signature Path: ?FINAL SURGICAL PATHOLOGY REP ORT HP CONVERSION Pathology #: [id number] ? Date Obtained: 05/28/2013 ?Date Received: 05/28/2013 [...] filled with a thin, clear serous fluid. Integration Lead sections are submitted in 4469 . ?WEYAL [...] on filedocumented in this encounter Care Teams Thermoforming Operator Relationship Specialty Start Date End Date Denisse Sue DO PCP - General 05/12/13 04/04/16 [address] [place] [address] documented as of this encounter
--- OUTSIDE RECORDS SUMMARY | 2021-11-01 06:40 | XMS_ITS | Encounter Summary ---
:1985 Author Organization [employer] Address [address] [place] [address] Care Team Providers Name Role Phone Md MINA Leigh Primary Care Provider Reason for Visit Reason Comments INJURY, KNEE Encounter Details Date Type Department Care Team Description 08/25/2011 Hospital Encounter [facility] [address] Edwin Polanco pain; Urgent Care Mini Buck MD Fracture, patella 3850 [facility] [address] [place] [address] [phone] Social History Tobacco Use Types Packs/Day Years [...] otherwise negative Past Medical History: Reviewed in [facility] Past Medical History Diagnosis Date ??? Anemia ??? Hyperhidrosis 01/23/2011 Adverse Drug Reactions: Reviewed in [facility] Review of patient's allergies indicates no known allergies. Medications: Reviewed in [facility] No current facility-administered medications on file. Current [...] Vital Signs: Reviewed in flowsheet charting of [facility] Blood pressure 107/70, pulse 76, temperature 36.9 [...] placed on crutches nonweightbearing. [facility] is given [...] at 9:[address] Polanco review E TEAM MEMBER Medication History - Bob Saavedra MD - 08/25/2011 3:39 PM CDT INPATIENT MEDS Encounter Date: 08/25/11 HYDROcodone-acetaminophen (VICODIN) 5-500 mg per tablet Start Date:08/25/11, End Date:09/04/11, Frequency:EVERY 6 HOURS PRN *No Administrations Recorded Letter - 08/25/2011 12:00 AM CDT [place] [address] [address] [place] [address] August 25, 2011 Patient: Simona Che Date of : 1985 Date of Visit: 08/25/2011 To Whom It May Concern: Simona Che was seen and treated in our department on 08/25/2011. She may return to work on 08/29/2011. May return sooner if patient feels she can tolerate.. If you have any questions or concerns, please don't hesitate to call. Sincerely, Mini Polanco MD E TEAM MEMBER documented in this encounter Plan of Treatment [...] patella documented in this encounter Care Teams Boatbuilder Supervisor Relationship Specialty Start Date End Date Md Leigh MD PCP - General 05/26/10 05/11/13 [place] [address] documented as of this encounter
--- OUTSIDE RECORDS SUMMARY | 2021-11-01 06:40 | XMS_ITS | Encounter Summary ---
:1985 Author Organization [employer] Address [address] [place] [address] Care Team Providers Name Role Phone Md MINA Leigh Primary Care Provider Encounter Details Date Type Department Care Team Description 04/01/2013 Imaging CTMRI Radiology MRI Left ankle pain (Primary Dx) [address] [facility] [address] Social History Tobacco Use Types Packs/Day Years Used Date Smoking Tobacco: Never Assessed Sex Assigned at Date Recorded Not on file documented as of this encounter Plan of Treatment Not on filedocumented as of this encounter Procedures Procedure Name Priority Date/Time Associated Diagnosis Comme nts MR ANKLE LT W/WO IV Routine 04/01/2013 8:02 PM Left ankle pain Results for this CONT CAST SHELL GRINDER procedure are i n the results section. documented in this encounter Results MR Ankle Lt W/WO IV Cont (04/01/2013 8:02 PM CAST SHELL GRINDER) Anatomical Region Laterality Modality Lower Extremity, Ankle, Foot, Leg, Skeletal, Foot & Ankle Le ft Other Specimen (Source) Anatomical Location Collection Method / Collectio n Time Received Time / Laterality Volume Impressions 04/02/2013 8:08 AM CAST SHELL GRINDER IMPRESSION: 1. Cystic 1.9 cm lesion superficial [...] is intact. ?? Narrative 04/02/2013 8:08 AM CAST SHELL GRINDER TECHNIQUE: Multiplanar and multisequenti al images of [...] foot documented in this encounter Care Teams Lamps Tester And Inspector Relationship Specialty Start Date End Date Md Lu, PCP - General 05/26/10 05/11/13 [place] [address] documented as of this encounter
--- OUTSIDE RECORDS SUMMARY | 2021-11-01 06:40 | XMS_ITS | Encounter Summary ---
:1985 Author Organization [employer] Address [address] [place] [address] Care Team Providers Name Role Phone Md MINA Leigh Primary Care Provider Reason for Visit Reason Comments Follow-up Encounter Details Date Type Department Care Team Description 12/13/2011 Office Visit [facility] [address] Barbara Gamino Axil lary odor Family Medicine CLEAN RICE BROKER, KIER OPERATOR (Primary Dx) [address] [facility] [address] [place] [address] [phone] Social History Tobacco Use Types Packs/Day Years [...] glands documented in this encounter Care Teams Urgent Care Technician Relationship Specialty Start Date End Date Md Leigh MD PCP - General 05/26/10 05/11/13 [place] [address] documented as of this encounter
--- OUTSIDE RECORDS SUMMARY | 2021-11-01 06:40 | XMS_ITS | Encounter Summary ---
:1985 Author Organization [facility] [employer] Address [address] [place] [address] Care Team Providers Name Role Phone Denisse Sue DO Primary Care Provider Reason for Visit Reason Comments HEADACHE,MIGRAINE Encounter Details Date Type Department Care Team Description 06/01/2015 Office Visit [facility] 3850 Denisse Sue, Chronic migraine Family Medicine [address] without aura without [address] status migrainosus, [address] [place], [place] [address] (Primary Dx) [address] [phone] Social History Tobacco Use Types Packs/Day Years [...] Where can you learn more? Go to [employer] and enter U690 in the search box. Current as of: April 15, 2014 Content Version: 107 ?? 2713-2188 im3D, Hordspot. documented in this encounter Progress Notes Denisse [...] school\work performance, speech difficulties, vomiting in the early childhood specialist. Home treatment has included Excedrin, ibuprofen, Imitrex [...] migrainosus documented in this encounter Care Teams Slipper Maker Relationship Specialty Start Date End Date Denisse Sue DO PCP - General 05/12/13 04/04/16 [address] [place] [address] documented as of this encounter
--- OUTSIDE RECORDS SUMMARY | 2021-11-01 06:40 | XMS_ITS | Encounter Summary ---
:1985 Author Organization [facility] [employer] Address [address] [place] [address] Care Team Providers Name Role Phone Linette, Denisse Mane DO Primary Care Provider Reason for Visit Reason Comments Dysuria Encounter Details Date Type Department Care Team Description 09/25/2014 Hospital Encounter [facility] Yancy Isaac, Dysuria [address] [place] [address] [facility] [address] [facility] [phone] [place], [place] [address] (Wo rk) Social History Tobacco Use Types [...] (A) Collection Time Result Time U Specific [place] Urobilinogen Urine 09/25/14 08:54:00 09/25/14 09:09:00 1.020 Negative Final result Narrative: Performed at [facility], [address] [place] [id number] Urine Microscopic: (Final result) Abnormal Component (Lab [...] from the original note were not included. [facility] [address] [facility] [address] [place] [phone] Dept: [phone] [email or web address] Simona Che 09/25/2014 8:54 AM Hospital Encounter Description: Female : 1985 Department: [facility] Dept Thank you for choosing [facility] for your health care visit with Yancy Isaac MD. We are happy to care for you and provide this summary of your visit. Your primary career placement services counselor is currently listed as eDnisse Sue DO (General). HERE IS WHAT YOU NEED TO KNOW To learn how you can take steps to stay as healthy as you can be visit [email or web address] Discharge Instructions Painful Urination (Dysuria): After Your [...] Where can you learn more? Go to DokDok/Nerd [employer] and enter H814 in the search box. Current as of: November 02, 2013 Content Version: 10.4 ?? [id number] [employer]. HERE IS WHAT YOU NEED TO DO Call your clinic if: You develop new symptoms Your symptoms worsen unexpectedly You are not improving as expected You have questions about your visit or medications Future Appointments Provider Department Dept Phone 09/26/2014 3:00 PM Nanette Kay APRN, SHOE IRONER [facility] Obstetrics/Gynecology [phone] Please arrive 15 minutes early with your [...] 100 Neg - Trace mg/dL U Specific [place] 1.020 1.005 - 1.030 Urobilinogen Urine Negative [...] Ethnicity Preferred Language 1985 Female White Non- Mexican This document contains confidential information about your [...] (ABNORMAL) Urine Culture (09/25/2014 9:30 AM CDT) [facility] Method Time Signature Source Urine HP CONVERSION [...] - 09/27/2014 6:06 AM CDT Performed at [facility] , ??[address] [place] [address], ?? CLIA Number [id number] Transcriptions 09/25/2014 9:30 AM CDTNotes Recorded by [...] Yancy Isaac MD LAB_1 Performing Organization Address City/[facility] Phon e Number HP CONVERSION (ABNORMAL) URINE MICROSCOPIC (09/25/2014 8:54 AM CDT) [facility] Method Time Signature Urine WBC 5-9 (A) [...] - 09/25/2014 9:11 AM CDT Performed at [place] [address] Yancy Isaac MD LAB_1 Performing Organization Address [facility] Phon e Number HP CONVERSION (ABNORMAL) URINALYSIS ROUTINE(MICRO IF POS) (09/25/2014 8:54 AM CDT) [facility] Method Time Signature Urine Type Urine:clean HP [...] U Specific 1.020 1.005 - HP CONVERSION [place] 1.030 Urobilinogen Negative Negative HP CONVERSION Urine Eu/dL Specimen Anatomical Collection Method Collection Time Receive d Time (Source) Location / / Volume Laterality Urine: 09/25/2014 8:54 AM 5 9:03 CDT AM CDT Narrative HP CONVERSION - 09/25/2014 9:09 AM CDT Performed at [facility], [address] [place] [address] Yancy Isaac MD LAB_1 Performing Organization Address [...] pills documented in this encounter Care Teams Coppersmith Helper Relationship Specialty Start Date End Date Denisse Sue, PCP - General 05/12/13 2 [address] [place] [address] documented as of this encounter
--- OUTSIDE RECORDS SUMMARY | 2021-11-01 06:40 | XMS_ITS | Encounter Summary ---
:1985 Author Organization [facility] Address [address] [place] [address] Care Team Providers Name Role Phone Denisse Sue DO Primary Care Provider Reason for Visit Reason Comments Contraception Encounter Details Date Type Department Care Team Description 09/26/2014 [facility] Nanette Kay, Other bret al Obstetrics/Gynecolog DON GRANT counseling and advice y [address] for contraceptive [address] [facility] 5th Floor management ([place], [place] Dx ) [phone] (Wo rk) Social History Tobacco Use Types [...] cycle of pills, please contact me at [phone] or through Double Fusion to review options. Take care Kimberley. documented [...] Past Surgical History Procedure Laterality Date ??? [place] tooth extraction History Social History ??? Marital [...] cycle of pills, please contact me at [phone] or through [employer] to review options. Take care Kimberley. The patient was discharged ambulatory and in stable condition. documented in this encounter Plan of Treatment Not on filedocumented as of this encounter Visit Diagnoses Diagnosis Other general counseling and advice for contraceptive management - Primary documented in this encounter Care Teams Quality Assurance Monitor Body Relationship Specialty Start Date End Date Denisse Sue DO PCP - General 05/12/13 04/04/16 [address] [place] [address] documented as of this encounter
--- OUTSIDE RECORDS SUMMARY | 2021-11-01 06:40 | XMS_ITS | Encounter Summary ---
:1985 Author Organization [facility] Address [address] [place] [address] Care Team Providers Name Role Phone Md MINA Leigh Primary Care Provider Reason for Referral Specialty Diagnoses / Procedures Referred By Contact Refer red To Contact Barbara Gamino AP RN, ELIGIBILITY CLERK [address] [place], [place] [address] Referral ID Status Reason Start Date Expiration Date Visits Requ ested Visits Authorized TMENT COORDINATOR Reason for Visit Reason Comments Skin Check Encounter Details Date Type Department Care Team Description 01/29/2012 Procedure Visit [facility] 3800 Karen Lester APRN , Skin Check Dermatology ELIGIBILITY CLERK [facility] [facility] [address] [place], [place] [address] [address] [place], [place] [phone] (Wo rk) Social History Tobacco Use Types Packs/Day Years Used Date Smoking Tobacco: Never Assessed Sex Assigned at Date Recorded Not on file documented as of this encounter Progress Notes Karen Lester APRN, CNP - 01/29/2012 5:19 PM CST Progress Notes signed by JOHN Olmstead at 01/31/12 057 Author: JOHN Olmstead Service: (none) Author Type: Nurse Practitioner Filed: 01/31/12749 Note Time: 01/29/121718 Status: Signed Tax Specialist: Karen Trevon V., ANP (Nurse Practitioner) NAME: ODESSA CHE MR#: [id number] CSN: [id number] AUTHENTICATING CLINICIAN: JOHN Burgos CONFIRM #: [id number] LOC: 427 CLINIC PROGRESS NOTE DATE OF [...] has further concerns. NVR:MEDQ C: CONFIRM #: [id number] TMENT COORDINATOR Karen Lester APRN, CNP - 01/29/2012 5:16 [...] glands documented in this encounter Care Teams Servicer Relationship Specialty Start Date End Date Md Leigh MD PCP - General 05/26/10 05/11/13 [place] [address] documented as of this encounter
--- OUTSIDE RECORDS SUMMARY | 2021-11-01 06:40 | XMS_ITS | Encounter Summary ---
:1985 Author Organization [facility] Address [address] [place] [address] Care Team Providers Name Role Phone Md MINA Leigh Primary Care Provider Reason for Visit Reason Comments RESULTS, TEST Encounter Details Date Type Department Care Team Description 04/07/[address] [facility] 39[address] Elizabeth Hurtado Loc alized superficial Podiatric MedSurg M, DPM swelling, mass, or [address] p (Primary Dx) [place] [address] [phone] (Wo rk) Social History Tobacco Use Types [...] 04/14/1358 Note Time: 04/07/13 1032 Status: Signed Lagging Machine Operator: Elizabeth Hurtado DPM (Physician) NAME: ODESSA CHE MR#: [id number] CSN: [id number] AUTHENTICATING CLINICIAN: Elizabeth Hurtado DPM CONFIRM #: [id number] LOC: 439 CLINIC PROGRESS NOTE DATE OF VISIT: 04/07/2013 : 1985 SUBJECTIVE: The patient is a 27-year-old female seen today to discuss MRI results of her left foot. She has a palpable soft tissue mass that is somewhat bothersome when she runs where her shoe rubs. It is not painful for her currently. MEDICATIONS: Reviewed and updated in [employer]. ALLERGIES: No known drug allergies. REVIEW OF [...] schedule procedure at her convenience with the cut out operator. She will need a preoperative history and physical 1 month prior to procedure. SMS:MEDQ C: CONFIRM #: [id number] TGENOLOGY TEACHER documented in this encounter Plan of Treatment Not on filedocumented as of this encounter Visit Diagnoses Diagnosis Localized superficial swelling, mass, or lump - Primary documented in this encounter Care Teams Instructional Supervisor Relationship Specialty Start Date End Date Md Lu, PCP - General 05/26/10 05/11/13 [place] [address] documented as of this encounter
--- OUTSIDE RECORDS SUMMARY | 2021-11-01 06:40 | XMS_ITS | Encounter Summary ---
:1985 Author Organization [facility] Address [address] [place] [address] Care Team Providers Name Role Phone Denisse Sue DO Primary Care Provider Reason for Visit Reason Comments Annual Exam Encounter Details Date Type Department Care Team Description 03/02/2015 [facility] Nicholas Kay Preventativ e health care (Primary Dx); Obstetrics/Gynecolog DON GRANT Pap smear, as part of routine gynecologi bre examination; y [address] Screen for STD (sexually tra nsmitted disease); [address] Counseling for control, oral contr aceptives [facility] [address] [place] [address] [place], [place] [phone] [address] Social History Tobacco Use Types Packs/Day Years Used Date Smoking Tobacco: Never Assessed Sex Assigned at Date Recorded Not on file documented as of this encounter Last Filed Vital Signs Vital Sign Reading Time Taken Comments Blood Pressure 109/73 03/02/2015 8:28 AM HADOOP SOFTWARE ENGINEER Pulse 65 03/02/2015 8:28 AM HADOOP SOFTWARE ENGINEER Temperature - - Respiratory Rate - - Oxygen Saturation - - Inhaled Oxygen Concentration - - Weight 55.4 kg (122 lb 1.6 oz) 03/02/2015 8:28 AM HADOOP SOFTWARE ENGINEER Height 168.3 cm (5' 6.25) 03/02/2015 8:28 AM HADOOP SOFTWARE ENGINEER Body Mass Index 19.56 03/02/2015 8:28 AM HADOOP SOFTWARE ENGINEER documented in this encounter Patient Instructions [...] infection identified your results will be on EarLenshart . Your control pills have been refilled [...] for evaluation. I am always available through [employer] or by calling the nurse triage line at [phone]. Have a great 2016 Kimberley! OP SOFTWARE ENGINEER documented in this encounter Progress Notes Amy Romero RN - 03/09/2015 8:57 AM HADOOP SOFTWARE ENGINEER Quick Note: Dear Simona, I am [...] call Cervical Cancer Screening and Management Team [phone] Sincerely, Amy Romero RN on behalf of Dr. Airam Obando, Conference Services Coordinator Rosalinda Dang Cervical Cancer Screening and Management OP SOFTWARE ENGINEER Nicholas Kay APRN, CNP - 03/02/2015 [...] Past Surgical History Procedure Laterality Date ??? Bandy tooth extraction ??? Foot surgery 2012 Family [...] Order Specific Question: Ordering Provider? (, Miladys, PUGGER HELPER, or PA Only) Answer: NICHOLAS KAY [[id number]] ??? Pap Test Order Order Specific Question: LMP (Date) Answer: 02/26/15 Order Specific Question: Abnormal Bleeding? Answer: No Order Specific Question: Menstrual Status Answer: None Apply Order Specific Question: Current form of therapy Answer: Hormone Therapy Order Specific Question: Hx of abnormal Pap test/WILDLIFE TECHNICIAN cancer outside of [facility]? Answer: No Order Specific Question: Pap Source Answer: Cervical Order Specific Question: Pap test type Answer: Screening Order Specific Question: HPV Testing Answer: HPV Regardless of Pap Results (Screening age 30+) Order Specific Question: Ordering Provider? (Miladys Almonte, PUGGER HELPER, or PA Only) Answer: NICHOLAS KAY [[id number]] ??? HPV with 16 18 Genotyping ??? [...] weeks, [facility] A culture for gonorrhea and Chlamydia was collected. You will be called with these results indicate infection and treatment, otherwise if no infection identified your results will [facility] . Your control pills have been [...] for evaluation. I am always available through [employer] or by calling the nurse triage line at [phone]. Have a great 2016 Kimberley! Current Control: Oral contraceptives OP SOFTWARE ENGINEER documented in this encounter Miscellaneous Notes [...] test results, callCervical Cancer Screening and Management [phone],Leslie B Carpenter, RN on behalf ofDr. Airam Obando, Medical DirectorMelrose Area Hospital Cervical Cancer Screening and Management OP SOFTWARE ENGINEER Miscellaneous - 04/03/2016 11:05 PM CSTNotes [...] test results, callCervical Cancer Screening and Management [id number],Amy Romero, RN on behalf ofDr. Airam Obando, Medical DirectorPark Laurence Cervical Cancer Screening and Management OP SOFTWARE ENGINEER documented in this encounter Plan of Treatment Not on filedocumented as of this encounter Procedures Procedure Name Priority Date/Time Associated Diagnosis Comme nts CHLAMYDIA & GC (14 Routine 03/02/2015 9:08 AM Screen for STD R esults for this YEARS AND OLDER) HADOOP SOFTWARE ENGINEER (sexually transmitted pr ocedure are in disease) the results section. PAP TEST ORDER Routine 03/02/2015 8:59 AM Pap smear, as part o f Results for this HADOOP SOFTWARE ENGINEER routine gynecological proced ure are in examination the results section. HPV WITH 16 18 Routine 03/02/2015 8:59 AM Results for this GENOTYPING, HADOOP SOFTWARE ENGINEER procedure are i n CERVICAL/ENDOCERVIC the resu lts AL section. ANATOMICAL PATH Routine 03/02/2015 8:59 AM Result s for this LIQUID BASED HADOOP SOFTWARE ENGINEER procedure are i n the results section. documented in this encounter Results Chlamydia & GC (03/02/2015 9:08 AM HADOOP SOFTWARE ENGINEER) [facility] gist Method Time Signature Chlamydia Negative Negative HP CONVERSION Trachomatis STD Comment: Test Performed by Biochemistry Specialist Mediated Amplification CLIA Number [id number] N. gonorrhoeae STD Negative Negative HP CONVERSI ON Comment: Test Performed by Biochemistry Specialist Mediated Amplification Performed at [facility], [address] ??[address] CLIA Number [id number] Source STD Cervix HP CONVERSION Comment: CLIA Number [id number] Specimen Anatomical Collection Method Collection Time Receive d Time (Source) Location / / Volume Laterality 03/02/2015 9:08 AM 6 3:29 HADOOP SOFTWARE ENGINEER PM HADOOP SOFTWARE ENGINEER Nicholas A Rahul GRANT, BODY FORMER LAB_1 Performing Organization Address City/State/ZIP Code Phon e Number HP CONVERSION Pap Smear (03/02/2015 8:59 AM HADOOP SOFTWARE ENGINEER) Specimen (Source) Anatomical Collection Method Collection Time Re ceived Time Location / / Volume Laterality 03/02/2015 8:59 AM HADOOP SOFTWARE ENGINEER Narrative HP CONVERSION - 03/06/2015 5:14 PM HADOOP SOFTWARE ENGINEER FINAL GYNECOLOGICAL CYTOLOGY REPORT Pathology #: [id number] ?Date Obtained: 03/02/2015 ? Date Received: 03/03/2015 [...] occur. ? End of Report Performed at [facility], [address] [place] [address] Transcriptions 04/03/2016 11:05 PM CSTNotes Recorded by [...] results, call Cervical Cancer Screening and Management [id number],Amy Romero RN on behalf ofDr. Airam Obando, Conference Services Coordinator [facility] Cervical Cancer Screening and Management Nicholas Kay APRN, BODY FORMER LAB_1 Performing Organization Address City/State/ZIP Code Phon e Number HP CONVERSION HPV with 16 18 Genotyping (03/02/2015 8:59 AM HADOOP SOFTWARE ENGINEER) [facility] Method Time Signature HPV High [...] and its pe rformance characteristics determined by [facility]. It has not been cleared or approved by [facility]. The laboratory is regulated under CLIA as qualified to perform high-complexity testing. This test is used for clinical purposes. It should not be regarded as investigational or fo r research. Specimen Anatomical Collection Method Collection Time Receive d Time (Source) Location / / Volume Laterality 03/02/2015 8:59 AM 6 8:59 HADOOP SOFTWARE ENGINEER AM HADOOP SOFTWARE ENGINEER Narrative HP CONVERSION - 03/08/2015 2:17 PM HADOOP SOFTWARE ENGINEER Performed at [facility], [facility] [place] [address] CLIA number [id number] Transcriptions 04/03/2016 11:05 PM CSTNotes Recorded by [...] results, call Cervical Cancer Screening and Management [phone] Contreras RN on behalf ofDr. Airam Obando, Conference Services Coordinator Rosalinda Bradyllet Cervical Cancer Screening and Management Nicholas Kay APRN, DON LAB_1 Performing Organization Address [facility] Phon e Number HP CONVERSION Pap Test Order (03/02/2015 8:59 AM HADOOP SOFTWARE ENGINEER) [facility] Method Time Signature Pap Smear Collected HP CONVERSION Monolayer tracking test Specimen Anatomical Collection Method Collection Time Receive d Time (Source) Location / / Volume Laterality 03/02/2015 8:59 AM 6 8:49 HADOOP SOFTWARE ENGINEER AM HADOOP SOFTWARE ENGINEER Nicholas Kay APRN, DON LAB_1 Performing Organization Address [facility] Phon e Number HP CONVERSION [...] contraceptives documented in this encounter Care Teams Grain Farmer Relationship Specialty Start Date End Date Denisse Sue DO PCP - General 05/12/13 2 [address] [place] [address] documented as of this encounter
--- OUTSIDE RECORDS SUMMARY | 2021-11-01 06:40 | XMS_ITS | Encounter Summary ---
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 Contact information [address] [facility] [id number] NG PROMOTER Cherelle Clay RN - 04/08/2015 3:32 PM CST rechecked on pt. pt states pain level now 3/10 to head. pt states feels much better. NG PROMOTER Cherelle Clay RN - 04/08/2015 3:11 PM CST pt resting on table, no distress noted. pt states migraine 8/10 now. will monitor and recheck post Zofran and Imitrex. NG PROMOTER documented in this encounter Miscellaneous Notes Medication [...] RN Oral - 04/08/15 1510 - - NG PROMOTER ED AVS Snapshot - Bob Saavedra MD - 04/08/2015 3:50 PM CST Images from the original note were not included. [facility] [address] [facility] [address] [place] [id number] Dept: [phone] [email or web address] Simona Che 04/08/2015 2:41 PM Hospital Encounter Description: Female : 1985 Department: [facility] Thank you for choosing [facility] for your health care visit with Norman Liao MD. We are happy to care for you and provide this summary of your visit. Your primary account executive healthcare is currently listed as Denisse Sue DO. HERE IS WHAT YOU NEED TO KNOW To learn how you can take steps to stay as healthy as you can be visit [email or web address] Discharge Instructions Migraine Headache: Care Instructions Your [...] Where can you learn more? Go to [employer] and enter U690 in the search box. Current as of: April 15, 2014 Content Version: 107 ?? [phone] [employer]. HERE IS WHAT YOU NEED TO DO Call your clinic if: You develop new symptoms Your symptoms worsen unexpectedly You are not improving as expected You have questions about your visit or medications Follow-up Information Follow up with Denisse Sue DO. Specialty: Family Medicine Why: In the next 1-2 weeks for a recheck. Contact information: [address] [facility] [address] HERE IS INFORMATION FROM TODAY'S VISIT Reason [...] Ethnicity Preferred Language 1985 Female White Non- Czech This document contains confidential information about your health and care. It is provided directlyto you for your personal, private use only. NG PROMOTER documented in this encounter Plan of Treatment [...] tried taking Excedrin migraine with no relief. NG PROMOTER documented in this encounter Care Teams Office Clin Asst Relationship Specialty Start Date End Date Denisse Sue DO PCP - General 05/12/13 2 [address] [place] [address] documented as of this encounter
--- OUTSIDE RECORDS SUMMARY | 2021-11-01 06:40 | XMS_ITS | Encounter Summary ---
:1985 Author Organization [facility] Address [address] [place] [address] Care Team Providers Name Role Phone Md MINA Leigh Primary Care Provider Reason for Visit Reason Comments Lab Draw Encounter Details Date Type Department Care Team Description 02/19/2012 Telephone [facility] Consuelo Lopez MD Lab Draw [address] [facility] [address] [place] [address] [place], [place] [address] (Wo rk) Social History Tobacco Use Types [...] by Nanette Bravo N.P. who has left [facility]. Also requested that pt call us back and let us know if plans on getting lab done. documented in this encounter Plan of Treatment Not on filedocumented as of this encounter Visit Diagnoses Not on filedocumented in this encounter Care Teams Delivery Merchandiser Relationship Specialty Start Date End Date Md Leigh MD PCP - General 05/26/10 05/11/13 [place] [address] documented as of this encounter
--- OUTSIDE RECORDS SUMMARY | 2021-11-01 06:40 | XMS_ITS | Encounter Summary ---
:1985 Author Organization [facility] Address [address] [place] [address] Care Team Providers Name Role Phone Denisse Sue Mane DO Primary Care Provider Reason for Visit Reason Comments Annual Exam Encounter Details Date Type Department Care Team Description 03/04/2016 [facility] Nanette Kay Well female exam with routine gynecological exam (Primary Dx); Obstetrics/Gynecolog PROGRAM OFFICER, AGILE SCRUM COACH Oral contraceptive pill surveillance; y [address] Migraine without aura and with status mi grainosus, not intractable [address] [facility] 5th [place] [phone] (Wo rk) Social History Tobacco Use Types [...] Comments Blood Pressure 120/77 03/04/2016 9:31 AM MANAGER MASS Pulse 78 03/04/2016 9:31 AM MANAGER MASS Temperature - - Respiratory Rate - - Oxygen Saturation - - Inhaled Oxygen Concentration - - Weight 53.4 kg (117 lb 11.2 oz) 03/04/2016 9:31 AM MANAGER MASS Height 168.3 cm (5' 6.25) 03/04/2016 9:31 AM MANAGER MASS Body Mass Index 18.85 03/04/2016 9:31 AM MANAGER MASS documented in this encounter Patient Instructions Patient InstructionsNanette Kay APRN, CNP - 03/04/2016 9:54 AM CST Thank you for coming in today Kimberley for your Well Visit. No pap smear was indicated, you had a normal pap smear/negative HPV. Your next pap smear is due in 2019. Yearly physical exams are still recommended. I recommend you check [employer]- Find A Provider- to identify another M.D. [...] you have additional questions or concerns at [phone] or [employer]. GER MASS documented in this encounter Progress Notes Nanette Kay APRN, CNP - 03/04/2016 10:01 AM CST Subjective: Simona Cuh is a partnered 30 y.o. female with [...] Past Surgical History Procedure Laterality Date ??? Andreas teeth extraction ??? Foot surgery 2012 Family [...] are still recommended. I recommend you check [employer]- Find A Provider- to identify another M.D. [...] you have additional questions or concerns at [phone] or [employer]. Current Control:03/15 GER MASS documented in this encounter Plan of Treatment [...] migrainosus documented in this encounter Care Teams Hvac Sales Representative Relationship Specialty Start Date End Date Denisse Sue DO PCP - General 05/12/13 04/04/16 [address] [place], [place] [id number] documented as of this encounter
--- OUTSIDE RECORDS SUMMARY | 2021-11-01 06:40 | XMS_ITS | Encounter Summary ---
:1985 Author Organization [facility] Address [address] [place] [address] Care Team Providers Name Role Phone Denisse Sue DO Primary Care Provider Reason for Visit Reason Comments Refill Encounter Details Date Type Department Care Team Description 12/06/2014 [facility] Nanette Kay, Counseling for Obstetrics/Gynecolog DON GRANT control, oral y [address] contraceptives (Primary [address] Dx) [facility] [address] [place] [address] [place], [place] [phone] [address] Social History Tobacco Use Types Packs/Day Years [...] encounter Patient Instructions Patient InstructionsNanette Kay, JUANITA, PHARMACEUTICAL COMPOUNDING SUPERVISOR - 12/06/2014 9:33 AM CDT Thank [...] smear for February 2015. You can call [phone] to set the appointment. I am available at [phone] or through [employer] if your have any questions. documented in [...] smear for February 2015. You can call [phone] to set the appointment. I am available at [phone] or through [employer] if your have any questions. The patient [...] contraceptives documented in this encounter Care Teams Hydration Plant Operator Relationship Specialty Start Date End Date Denisse Sue DO PCP - General 05/12/13 2 [address] [place] [address] documented as of this encounter
--- OUTSIDE RECORDS SUMMARY | 2021-11-01 06:40 | XMS_ITS | Encounter Summary ---
:1985 Author Organization [facility] Address [address] [place] [address] Care Team Providers Name Role Phone Denisse Sue DO Primary Care Provider Reason for Visit Reason Comments Surgery Orders Encounter Details Date Type Department Care Team Description 05/17/2013 Notes/Orders [facility] [address], Podiatric MedSurg DPM [address] [place] [phone] Social History Tobacco Use Types Packs/Day Years Used Date Smoking Tobacco: Never Assessed Sex Assigned at Date Recorded Not on file documented as of this encounter Plan of Treatment Not on filedocumented as of this encounter Visit Diagnoses Not on filedocumented in this encounter Care Teams Cullet Crusher And Washer Relationship Specialty Start Date End Date Denisse Sue DO PCP - General 05/12/13 2 [address] [place], [place] [address] documented as of this encounter
--- OUTSIDE RECORDS SUMMARY | 2021-11-01 06:40 | XMS_ITS | Encounter Summary ---
:1985 Author [facility] Address [address] [place] [address] Care Team Providers Name Role Phone Md MINA Leigh Primary Care Provider Reason for Visit Reason Comments Follow-up Encounter Details Date Type Department Care Team Description 09/24/2011 Office Visit [facility] Angelica Thomas (Primary CENTER MD Elliott Dx) [address] [place] [address] [address] [place], [place] [phone] (Wo rk) Social History Tobacco Use Types Packs/Day Years Used Date Smoking Tobacco: Never Assessed Sex Assigned at Date Recorded Not on file documented as of this encounter Progress Notes Angelica Thomas MD - 09/24/2011 4:45 PM CDT Progress Notes signed by Angelica Thomas MD at 09/30/11 0925 Author: Angelica Thomas MD Service: (none) Author Type: Physician Filed: 09/30/11924 Note Time: 09/24/11 4495 Status: Signed Surgical Supplies Sterilizer: Angelica Thomas MD (Physician) NAME: ODESSA CHE VISIT: [id number] DICTATING CLINICIAN: ANGELICA THOMAS MD JOB: [id number] Med JOB: [id number] LOC: 3711 CLINIC PROGRESS NOTE DATE OF [...] patella documented in this encounter Care Teams Cork Mixer Relationship Specialty Start Date End Date Md Leigh MD PCP - General 05/26/10 05/11/13 [place] [address] documented as of this encounter
--- OUTSIDE RECORDS SUMMARY | 2021-11-01 06:40 | XMS_ITS | Encounter Summary ---
:1985 Author Organization [facility] Address [address] [place] [address] Care Team Providers Name Role Phone Md MINA Leigh Primary Care Provider Reason for Referral Specialty Diagnoses / Procedures Referred By Contact Refer red To Contact Laverne Polanco MD [address] [facility] [address] [place] [address] Referral ID Status Reason Start Date Expiration Date Visits Requ ested Visits Authorized Reason for Visit Reason Comments CONSULT Encounter Details Date Type Department Care Team Description 08/27/2011 Surgical Consult [facility] Angel[facility], [facility] CENTER MD Elliott (Primary Dx) [address] [place] [place] [address] [phone] Social History Tobacco Use Types Packs/Day Years [...] 09/03/11816 Note Time: 08/27/11 1641 Status: Signed Dye Automation Operator: Angelica Thomas MD (Physician) NAME: ODESSA CHE VISIT: [id number] DICTATING CLINICIAN: ANGELICA THOMAS MD JOB: [id number] Med JOB: [id number] LOC: 3711 CLINIC PROGRESS NOTE DATE OF [...] 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 She is a nonsmoker. Drinks alcohol [...] she is doing well. We have discussed salvage determiner outcome, possible return to running date as [...] patella documented in this encounter Care Teams Extension Course Counselor Relationship Specialty Start Date End Date Md Leigh MD PCP - General 05/26/10 05/11/13 [place] [address] documented as of this encounter
--- OUTSIDE RECORDS SUMMARY | 2021-11-01 06:40 | XMS_ITS | Encounter Summary ---
:1985 Author Organization [facility] Address [address] [place] [address] Care Team Providers Name Role Phone Md MINA Leigh Primary Care Provider Encounter Details Date Type Department Care Team Description 06/21/2010 PN Conversion Only CONVERSION CONVERSION Jovany Melendez MD [address] [place], [place] [phone] (Wo rk) Social History Tobacco Use Types Packs/Day Years Used Date Smoking Tobacco: Never Assessed Sex Assigned at Date Recorded Not on file documented as of this encounter Plan of Treatment Not on filedocumented as of this encounter Visit Diagnoses Not on filedocumented in this encounter Care Teams Advertising Editor Relationship Specialty Start Date End Date Md Leigh MD PCP - General 05/26/10 05/11/13 [place], [place] [id number] documented as of this encounter
--- OUTSIDE RECORDS SUMMARY | 2021-11-01 06:40 | XMS_ITS | Encounter Summary ---
:1985 Author Organization [facility] Address [address] [place] [address] Care Team Providers Name Role Phone Denisse Sue DO Primary Care Provider Encounter Details Date Type Department Care Team Description 05/12/2013 Lab Visit [facility] [address] Anemia [address] [place] [address] Social History Tobacco Use Types [...] - 05/12/2013 8:23 AM CDT Performed at [facility], [address] [place] [address] Denisse Sue DO LAB_1 Performing Organization Address City/State/ZIP Code Phon e Number HP CONVERSION documented in this encounter Visit Diagnoses Diagnosis Anemia Anemia, unspecified documented in this encounter Care Teams City Treasurer Relationship Specialty Start Date End Date Denisse Sue DO PCP - General 05/12/13 2 [address] [place] [address] documented as of this encounter
--- OUTSIDE RECORDS SUMMARY | 2021-11-01 06:40 | XMS_ITS | Encounter Summary ---
:1985 Author Organization [facility] Address [address] [place] [address] Care Team Providers Name Role Phone Denisse Sue DO Primary Care Provider Reason for Visit Reason Onset Date Comments Refill 12/26/2015 June Encounter Details Date Type Department Care Team Description 12/26/2015 [facility] Nicholas Kay, Derick PRN, DISTRIBUTION FIELD ENGINEER Refill () Obstetrics/Gynecolog y [address] 5[address] [place] [address] [place], [place] [address] (Wo rk) Social History Tobacco Use Types [...] Department Center 03/04/2016 9:30 AM Nicholas Kay MAGNETO SPECIALIST, DISTRIBUTION FIELD ENGINEER [facility] Requested Prescriptions Signed [...] tablet [Nicholas Kay APRN, CNP] Preferred pharmacy: [address] Comment: Hi - I have an [...] on filedocumented in this encounter Care Teams Can Sorter Relationship Specialty Start Date End Date Denisse Sue DO PCP - General 05/12/13 04/04/16 [address] [place] [address] documented as of this encounter
--- OUTSIDE RECORDS SUMMARY | 2021-11-01 06:40 | XMS_ITS | Encounter Summary ---
:1985 Author Organization [facility] Address [address] [place] [address] Care Team Providers Name Role Phone Md MINA Leigh Primary Care Provider Encounter Details Date Type Department Care Team Description 07/30/2012 Lab Visit [facility] 3850 Screening for iron deficiency anemia; Laboratory Screening for lipoid disorde rs; [address] Special screening examinatio n for other specified viral diseases; [place] [address] Urinary urgency [phone] Social History Tobacco Use Types Packs/Day Years [...] MICRO/CULTURE IF POS (07/30/2012 12:11 PM CDT) [facility] Method Time Signature Urine Type Urine:clean HP [...] U Specific 1.010 1.005 - HP CONVERSION [place] 1.030 Urobilinogen Negative Negative HP CONVERSION Urine Eu/dL Specimen Anatomical Collection Method Collection Time Receive d Time (Source) Location / / Volume Laterality Urine: 07/30/2012 12:11 07/30/2012 PM CDT 12:11 PM CDT Narrative HP CONVERSION - 07/30/2012 12:31 PM CDT Performed at [facility], [address] [place] [address] Nanette Kay APRN, CNP LAB_1 Performing Organization Address City/[facility] Code Phon e Number HP CONVERSION Hepatitis C Antibody, with Reflex (07/30/2012 12:11 PM CDT) [facility] [employer] Method Time Signature Hepatitis C Non-React Non-Reacti HP CONVERSION Antibody ve Specimen Anatomical Collection Method Collection Time Receive d Time (Source) Location / / Volume Laterality 07/30/2012 12:11 07/30/2012 1:32 PM CDT PM CDT Nanette Kay APRN, CNP LAB_1 Performing Organization Address [facility] Phon e Number HP CONVERSION Hep B Surface Antigen, No Reflex (07/30/2012 12:11 PM CDT) Analysis Performed At Patho logist Time Signature Hep B Surf Ag Negative Negative HP CONVERSION Specimen Anatomical Collection Method Collection Time Receive d Time (Source) Location / / Volume Laterality 07/30/2012 12:11 07/30/2012 1:32 PM CDT PM CDT Nanette Kay APRN, CNP LAB_1 Performing Organization Address City/[facility]/ZIP Code Phon e Number HP CONVERSION Treponema Screen (07/30/2012 12:11 PM CDT) [facility] gist Method Time Signature Treponema Non Reactive Non Reactive HP CONVERSION Screen Specimen Anatomical Collection Method Collection Time Receive d Time (Source) Location / / Volume Laterality 07/30/2012 12:11 07/30/2012 1:33 PM CDT PM CDT Nanette Kay APRN, CNP LAB_1 Performing Organization Address [facility] Code Phon e Number HP CONVERSION HIV ANTIBODY (07/30/2012 12:11 PM CDT) athologist Signature HIV 1/HIV 2 Non-React Non-Reacti HP CONVERSION ve Specimen Anatomical Collection Method Collection Time Receive d Time (Source) Location / / Volume Laterality 07/30/2012 12:11 07/30/2012 1:32 PM CDT PM CDT Nanette Kay APRN, CNP LAB_1 Performing Organization Address [facility] Code Phon e Number HP CONVERSION Cholesterol, [...] - 07/30/2012 12:43 PM CDT Performed at [facility], [address] [place] [address] Nanette Kay APRN, CNP LAB_1 Performing Organization Address City/[facility]/ZIP Code Phon e Number HP CONVERSION (ABNORMAL) Ferritin (07/30/2012 12:11 PM CDT) athologist Signature Ferritin Serum 4 (L) 10 - 291 HP CONVERSION ng/mL Specimen Anatomical Collection Method Collection Time Receive d Time (Source) Location / / Volume Laterality 07/30/2012 12:11 07/30/2012 1:32 PM CDT PM CDT Nanette Kay APRN, CNP LAB_1 Performing Organization Address [facility] Phon e Number HP CONVERSION (ABNORMAL) Hemogram/Plts (07/30/2012 12:11 PM CDT) [facility] gist Method Time Signature White [...] - 07/30/2012 12:22 PM CDT Performed at [facility], [address] [place] [address] Nanette Kay APRN, CNP LAB_1 Performing Organization Address [facility] Phon e Number HP CONVERSION documented in this encounter Visit Diagnoses Diagnosis Screening for iron deficiency anemia Screening for lipoid disorders Special screening examination for other specified viral diseases Urinary urgency Urgency of urination documented in this encounter Care Teams Histology Supervisor Relationship Specialty Start Date End Date Md Leigh MD PCP - General 05/26/10 05/11/13 [place] [address] documented as of this encounter
--- OUTSIDE RECORDS SUMMARY | 2021-11-01 06:40 | XMS_ITS | Encounter Summary ---
:1985 Author Organization [facility] Address [address] [place] [address] Care Team Providers Name Role Phone Denisse Sue DO Primary Care Provider Reason for Visit Reason Comments Annual Exam Encounter Details Date Type Department Care Team Description 12/22/2013 [facility] Nicholas Kay, Routine gen eral medical examination at a health care facility (Primary Dx); Obstetrics/Gynecolog y DON GRANT Special screening examination for unspec ified chlamydial disease [address] [place], [place] H[facility] [address] [place] [address] [place], [place] [phone] [address] (Wo rk) Social History Tobacco Use Types [...] pending. I will forward your results through OfficeDrop, or call you if there are anyconcerns. In the past you have had problems with low iron causing anemia. Most recent hemoglobin was normal at12.2. Please contact me at [phone] if there is anything you need. Have a great year. N MAKER documented in this encounter Progress Notes Nicholas [...] Past Surgical History Procedure Laterality Date ??? [place] tooth extraction Family History: Family History Problem [...] Order Specific Question: Ordering Provider? (Dr, Res, REAL ESTATE CONSULTANT, or PA Only) Answer: NICHOALS KAY [[id number]] Patient Instructions It was good to meet [...] pending. I will forward your results through OfficeDrop, or call you if there are anyconcerns. In the past you have had problems with low iron causing anemia. Most recent hemoglobin was normal at12.2. Please contact me at [phone] if there is anything you need. Have a great year. Current Control: Condoms N MAKER documented in this encounter Plan of [...] Component Value Ref Test Analysis Performed At [facility] gist Range Method Time Signature Source [...] disease documented in this encounter Care Teams Expediter Relationship Specialty Start Date End Date Denisse Sue DO PCP - General 05/12/13 04/04/16 [address] [place] [address] documented as of this encounter
--- OUTSIDE RECORDS SUMMARY | 2021-11-01 06:40 | XMS_ITS | Encounter Summary ---
:1985 Author Organization [facility] Address [address] [place] [address] Care Team Providers Name Role Phone Md MINA Leigh Primary Care Provider Encounter Details Date Type Department Care Team Description 06/20/2010 PN Conversion Only SALES REPRESENTATIVE [employer] [address] Nicholas Rodríguez APRN, [address] [facility] [address] [facility] 5th Floor [address] [place], [place] [address] (Wo rk) Social History Tobacco Use Types [...] Transmitted Disease Probe (06/20/2010 3:38 PM CDT) [facility] Method Time Signature Sexually SEE TEXT HP CONVERSION Transmitted Disease Probe Comment: STDPR Sexually Transmitted Disease DNA Probe ? ORDERED BY: NICHOLAS AKY SOURCE: Endocervical for molecular testi ng COLLECTED: ??06/20/10 15:38 ? PLATED: ? 06/20/10 15:38 Chlamydia trachomatis DNA Probe ?FINAL ? 06/22/10 10:17 Chlamydia trachomatis NEGATIVE by DNA a mplification The amplified DNA assay is cleared by [facility] for non-medicolegal diagnostic testing in [facility] population. Neisseria gonorrhea DNA Probe ?FINAL ? 06/22/10 10:17 Neisseria gonorrhea NEGATIVE by DNA amp lification. The amplified DNA assay is cleared by [facility] for non-medicolegal diagnostic testing in [facility] adult population. Specimen (Source) Anatomical Collection Method Collection Time Re ceived Time Location / / Volume Laterality 06/20/2010 3:38 PM CDT Nicholas Kay APRN, LEACH CELL OPERATOR LAB_1 Performing Organization Address City/[facility] Code Phon e Number HP CONVERSION (ABNORMAL) [...] 06/20/2010 12:33 PM CDT Nicholas Kay APRN, LEACH CELL OPERATOR LAB_1 Performing Organization Address City/[facility] Code Phon e Number HP CONVERSION URINALYSIS ROUTINE(MICRO IF POS) (06/20/2010 12:33 PM CDT) [facility] gist Method Time Signature Urine Type Cln [...] U Specific 1.010 1.005 - HP CONVERSION [place] 1.030 Urobilinogen Negative Negative HP CONVERSION Urine Eu/dL Specimen (Source) Anatomical Collection Method Collection Time Re ceived Time Location / / Volume Laterality 06/20/2010 12:33 PM CDT Nicholas Kay APRN, LEACH CELL OPERATOR LAB_1 Performing Organization Address City/[facility] Phon e Number HP CONVERSION Urine Culture (06/20/2010 12:31 PM CDT) Analysis Performed At [facility] Time Signature Urine Culture SEE TEXT [...] Kay APRN, DON LAB_1 Performing Organization Address City/[facility] Phon e Number HP CONVERSION documented in this encounter Visit Diagnoses Not on filedocumented in this encounter Care Teams Marketing Manager Relationship Specialty Start Date End Date Md Leigh MD PCP - General 05/26/10 05/11/13 [place] [address] documented as of this encounter
--- OUTSIDE RECORDS SUMMARY | 2021-11-01 06:40 | XMS_ITS | Encounter Summary ---
:1985 Author [facility] Address [address] [place] [address] Care Team Providers Name Role Phone Md MINA Leigh Primary Care Provider Reason for Visit Reason Comments EXCESSIVE SWEATING Encounter Details Date Type Department Care Team Description 01/23/2011 Office Visit [facility] Nicholas Weaver, Hyperhidrosis; [address] Milton Robb APRN, CNP [place], [place] [id number] [place] [address] [address] [address] (Wo rk) Social History Tobacco Use Types Packs/Day Years Used Date Smoking Tobacco: Never Assessed Sex Assigned at Date Recorded Not on file documented as of this encounter Last Filed Vital Signs Vital Sign Reading Time Taken Comments Blood Pressure 92/50 01/23/2011 3:22 PM HOGSHEAD FILLER Pulse 68 01/23/2011 3:22 PM HOGSHEAD FILLER Temperature 36.7 ??C (98.1 ??F) 01/23/2011 3:22 PM HOGSHEAD FILLER Respiratory Rate - - Oxygen Saturation - - Inhaled Oxygen Concentration - - Weight 50.8 kg (112 lb) 01/23/2011 3:22 PM HOGSHEAD FILLER Height 165.1 cm (5' 5) 01/23/2011 3:22 PM HOGSHEAD FILLER Body Mass Index 18.64 01/23/2011 3:22 PM HOGSHEAD FILLER documented in this encounter Patient Instructions Patient InstructionsSuNicholas rincon APRN, CLIPPER AUTOMATIC - 01/23/2011 3:35 PM HOGSHEAD FILLER Lab letter will arrive in 1-2 weeks. Aluminum Chloride as needed for sweating. HEAD FILLER documented in this encounter Progress Notes Nicholas Weaver APRN, CNP - 01/23/2011 4:30 PM HOGSHEAD FILLER Addended by: NICHOLAS WEAVER on: 01/23/2011 Modules [...] unspecified documented in this encounter Care Teams Jewelry Making Instructor Relationship Specialty Start Date End Date Md Leigh MD PCP - General 05/26/10 05/11/13 [place] [address] documented as of this encounter
--- OUTSIDE RECORDS SUMMARY | 2021-11-01 06:41 | XMS_ITS | Encounter Summary ---
:1985 Author Organization [facility] Address [address] [place] [address] Care Team Providers Name Role Phone Unavailable Primary Care Provider Unavailable Reason for Visit Reason Comments INJURY, FINGERS Encounter Details Date Type Department Care Team Description 09/01/1997 Telephone Careline Aisha Aguilar, RN INJURY, FINGERS [address] [place], [place] [address] [phone] [place] [address] Social History Tobacco Use Types Packs/Day Years Used Date Smoking Tobacco: Never Assessed Sex Assigned at Date Recorded Not on file documented as of this encounter Nursing Notes 09/01/1997 11:59 PM CDT >> CALL RECEIVED. Contact: [phone] >> AISHA AGUILAR 09/01/1997 10:07 pm Dad [...] to go to Er will go to [place] [facility]. documented in this encounter Plan of Treatment Not on filedocumented as of this encounter Visit Diagnoses Not on filedocumented in this encounter
--- OUTSIDE RECORDS SUMMARY | 2021-11-01 06:41 | XMS_ITS | Encounter Summary ---
:[address] [facility] Address [address] [place] [address] Care Team Providers Name Role Phone Md MINA Leigh Primary Care Provider Encounter Details Date Type Department Care Team Description 02/24/1989 PN Conversion Only WASHING MACHINE OPERATOR [address] [place] [address] [address] [place] [address] (Wo rk) Social History Tobacco Use Types Packs/Day Years Used Date Smoking Tobacco: Never Assessed Sex Assigned at Date Recorded Not on file documented as of this encounter Plan of Treatment Not on filedocumented as of this encounter Visit Diagnoses Not on filedocumented in this encounter Care Teams Foreign Student Adviser Relationship Specialty Start Date End Date Md Leigh MD PCP - General 05/26/10 05/11/13 [place] [address] documented as of this encounter
--- OUTSIDE RECORDS SUMMARY | 2021-11-01 06:41 | XMS_ITS | Encounter Summary ---
:1985 Author Organization [facility] Address [address] [place] [address] Care Team Providers Name Role Phone Md MINA Leigh Primary Care Provider Encounter Details Date Type Department Care Team Description 01/13/2009 PN Conversion Only AGRICULTURAL REAL ESTATE AGENT [address] Nanette Rodríguez APRN, [address] [facility] LEAD CUSTOMER SERVICE [address]PRES[address] [facility] 5th Floor [address] [place], [place] [address] (Wo rk) Social History Tobacco Use Types Packs/Day Years Used Date Smoking Tobacco: Never Assessed Sex Assigned at Date Recorded Not on file documented as of this encounter Plan of Treatment Not on filedocumented as of this encounter Procedures Procedure Name Priority Date/Time Associated Comments Diagnosis SEXUALLY TRANSMITTED Routine 01/13/2009 3:46 PM R esults for this DISEASE PROBE HELICOPTER UTILITY AIRCREWMAN procedure are in the results section. ANATOMICAL PATH Routine 01/13/2009 8:23 AM Result s for this LIQUID BASED HELICOPTER UTILITY AIRCREWMAN procedure are i n the results section. documented in this encounter Results Sexually Transmitted Disease Probe (01/13/2009 3:46 PM HELICOPTER UTILITY AIRCREWMAN) [facility] gist Method Time Signature Sexually SEE TEXT HP CONVERSION Transmitted Disease Probe Comment: Patient: ODESSA CHE Sexually Trans Disease Probe ?Collected: ??[id number] ??[id number] Source: ENDOCERV ?Processed: ??[id number] ??[id number] Final Report ------ ?[id number] ??[id number] No Chlamydia trachomatis detected by amp lified DNA assay No Neisseria gonorrhoeae detected by amp lified DNA assay The Probete[employer]og[employer] Amplified DNA assay is suman red by the FDA for non-medicolegal diagnostic testing in the adult population. Specimen (Source) Anatomical Collection Method Collection Time Re ceived Time Location / / Volume Laterality 01/13/2009 3:46 PM HELICOPTER UTILITY AIRCREWMAN Nanette Kay APRN, LEAD CUSTOMER SERVICE REPRESENTATIVE LAB_1 Performing Organization Address City/State/ZIP Code Phon e Number HP CONVERSION Pap Smear (01/13/2009 8:23 AM HELICOPTER UTILITY AIRCREWMAN) [facility] gist Method Time Signature PAP Smear SEE TEXT No normal HP CONVERSION Liquid Based range Comment: Patient: ODESSA CHE ? CERVICAL CYTOLOGY REPORT Pathology # ??[id number] ?Date Obtained: ? Date Received: CYTOLOGIC IMPRESSION: Negative for intraepithelial lesion or m alignancy. Verified 01/18/09 by: ??MB ? (electronic signature) ? ALYSA TIONAL DATA LMP: CLINICAL HIST LIQUID BASED PAP CERVICAL SPECIMEN ADEQUACY: ?? Satisfactory. ENDOCERVICAL CELLS: ??Present. Specimen (Source) Anatomical Collection Method Collection Time Re ceived Time Location / / Volume Laterality 01/13/2009 8:23 AM HELICOPTER UTILITY AIRCREWMAN Nanette Kay MIXING HOUSE OPERATOR, LEAD CUSTOMER SERVICE REPRESENTATIVE LAB_1 Performing Organization Address City/State/ZIP Code Phon e Number HP CONVERSION documented in this encounter Visit Diagnoses Not on filedocumented in this encounter Care Teams Skeins Yarn Examiner Relationship Specialty Start Date End Date Md Lu, PCP - General 05/26/10 05/11/13 [place], [place] [address] documented as of this encounter
--- OUTSIDE RECORDS SUMMARY | 2021-11-01 06:41 | XMS_ITS | Encounter Summary ---
:1985 Author Organization [facility] Address [address] [place] [address] Care Team Providers Name Role Phone Md MINA Leigh Primary Care Provider Encounter Details Date Type Department Care Team Description 12/25/2002 PN Conversion Only QUALITY CONTROL SYSTEMS MANAGER [address] [place] [address] Social History Tobacco Use Types Packs/Day Years Used Date Smoking Tobacco: Never Assessed Sex Assigned at Date Recorded Not on file documented as of this encounter Plan of Treatment Not on filedocumented as of this encounter Visit Diagnoses Not on filedocumented in this encounter Care Teams Line Repairer Relationship Specialty Start Date End Date Md Leigh MD PCP - General 05/26/10 05/11/13 [place], [place] [address] documented as of this encounter
--- OUTSIDE RECORDS SUMMARY | 2021-11-01 06:41 | XMS_ITS | Encounter Summary ---
:1985 Author [facility] Address [address] [place] [address] Care Team Providers Name Role Phone Md MINA Leigh Primary Care Provider Encounter Details Date Type Department Care Team Description 07/12/2008 Office Visit [facility] [address], Care Jovany Guzman MD [address] [facility] [address] [place] [address] [place] [address] [phone] (Wo rk) Social History Tobacco Use Types [...] 1319 Note Time: 07/12/08 0001 Status: Signed Map And Chart Mounter: Megan Britton MD (Physician) NAME: ODESSA CHE MR#: [id number] ACCT: [id number] VISIT: [id number] DICTATING CLINICIAN: Megan Britton MD CONFIRM #: [id number] LOC: 420 CLINIC PROGRESS NOTE DATE OF [...] try some icing and ibuprofen as well. [facility]:[id number] C: 07/13/08 10:58 CONFIRM #: [id number] documented in this encounter Plan of Treatment [...] recommended if there are persistent s ymptoms. [id number] Dictating JUVENAL HERNANDEZ RADIOLOGIST Procedure Note Juvenal [...] recommended if there are persistent s ymptoms. [id number]/ddb Dictating JUVENAL HERNANDEZ RADIOLOGIST Jovany Britton MD RAD GD documented in this encounter Visit Diagnoses Not on filedocumented in this encounter Care Teams Survey Questionnaire Designer Relationship Specialty Start Date End Date Md Leigh MD PCP - General 05/26/10 05/11/13 [place] [address] documented as of this encounter
--- OUTSIDE RECORDS SUMMARY | 2021-11-01 06:41 | XMS_ITS | Encounter Summary ---
:1985 Author Organization [facility] Address [address] [place] [address] Care Team Providers Name Role Phone Md MINA Leigh Primary Care Provider Reason for Visit Reason Comments Other Encounter Details Date Type Department Care Team Description 06/20/2010 Telephone [facility] [address] [place], Message Other Obstetrics/Gynecolog y [address] [place] [address] Social History Tobacco Use Types Packs/Day Years Used Date Smoking Tobacco: Never Assessed Sex Assigned at Date Recorded Not on file documented as of this encounter Progress Notes [place], Message - 06/20/2010 8:33 AM CDT Ml on pt's contact number to go to [facility] 1/2 hr prior to appt for UA/UC. Labs faxed. Created on 20Jun2010 8:33am by ELVA DU documented in this encounter Plan of Treatment Not on filedocumented as of this encounter Visit Diagnoses Not on filedocumented in this encounter Care Teams Inspector Of Weights And Measures Relationship Specialty Start Date End Date Md Leigh MD PCP - General 05/26/10 05/11/13 [place] [address] documented as of this encounter
--- OUTSIDE RECORDS SUMMARY | 2021-11-01 06:41 | XMS_ITS | Encounter Summary ---
:1985 Author Organization [facility] Address [address] [place] [address] Care Team Providers Name Role Phone Md MINA Leigh Primary Care Provider Encounter Details Date Type Department Care Team Description 03/31/2010 Office Visit [facility] [address], Care Jovany Guzman MD [address] [facility] [address] [place] [address] [place] [address] [phone] (Wo rk) Social History Tobacco Use Types Packs/Day Years Used Date Smoking Tobacco: Never Assessed Sex Assigned at Date Recorded Not on file documented as of this encounter Last Filed Vital Signs Vital Sign Reading Time Taken Comments Blood Pressure 121/80 03/31/2010 8:19 AM SALESPERSON NEW CARS Pulse 66 03/31/2010 8:19 AM SALESPERSON NEW CARS Temperature 37 ??C (98.6 ??F) 03/31/2010 8:19 AM SALESPERSON NEW CARS C: 37.0 C Respiratory Rate 16 03/31/2010 8:19 AM SALESPERSON NEW CARS Oxygen Saturation 100% 03/31/2010 8:19 AM SALESPERSON NEW CARS Inhaled Oxygen Concentration - - Weight - - Height - - Body Mass Index - - documented in this encounter Progress Notes Jovany Degroot MD - 03/31/2010 12:01 AM CST NAME: ODESSA CHE MR#: [id number] ACCT: [id number] VISIT: [id number] DICTATING CLINICIAN: Megan Britton MD CONFIRM #: [id number] LOC: 420 CLINIC PROGRESS NOTE DATE OF [...] any vaginal discharge. She denies any numbness, ysoi-owd-obthkkc feeling in lower or upper extremity, no [...] [facility]:MEDQ C: CONFIRM #: [id number] SPERSON NEW CARS documented in this encounter Plan of Treatment Not on filedocumented as of this encounter Procedures Procedure Name Priority Date/Time Associated Diagnosis Comme nts XR CHEST 2 VIEWS Routine 03/31/2010 8:59 AM Resul ts for this SALESPERSON NEW CARS procedure are i n the results section. documented in this encounter Results XR Chest 2 Views (03/31/2010 8:59 AM SALESPERSON NEW CARS) Anatomical Region Laterality Modality Chest, Lung Other Specimen (Source) Anatomical Location Collection Method / Collectio n Time Received Time / Laterality Volume Impressions 03/31/2010 8:59 AM SALESPERSON NEW CARS : ??Normal. Dictating TAYLOR ROBINS RADIOLOGIST Narrative 03/31/2010 8:59 AM SALESPERSON NEW CARS FINDINGS: ??No comparisons. ??Cardiac and mediastinal silhouettes [...] on filedocumented in this encounter Care Teams Welfare Analyst Relationship Specialty Start Date End Date Md Lu, PCP - General 05/26/10 05/11/13 [place] [address] documented as of this encounter
--- OUTSIDE RECORDS SUMMARY | 2021-11-01 06:41 | XMS_ITS | Encounter Summary ---
:1985 Author Organization [facility] Address [address] [place] [address] Care Team Providers Name Role Phone Md MINA Leigh Primary Care Provider Encounter Details Date Type Department Care Team Description 03/31/2010 PN Conversion Only AMERICAN SIGN LANGUAGE TEACHER [address], [address] [place] [address] [place], [place] [id number] (Wo rk) Social History Tobacco Use Types Packs/Day Years Used Date Smoking Tobacco: Never Assessed Sex Assigned at Date Recorded Not on file documented as of this encounter Plan of Treatment Not on filedocumented as of this encounter Procedures Procedure Name Priority Date/Time Associated Comments Diagnosis SEXUALLY TRANSMITTED Routine 03/31/2010 9:50 AM R esults for this DISEASE PROBE PRODUCT DESIGNER procedure are in the results section. COMPLETE BLOOD Routine 03/31/2010 9:50 AM Results for this COUNT-W/DIFF PRODUCT DESIGNER procedure are i n the results section. DIFFERENTIAL Routine 03/31/2010 9:50 AM Results f or this PRODUCT DESIGNER procedure are i n the results section. WET PREP Routine 03/31/2010 9:40 AM Results f or this PRODUCT DESIGNER procedure are i n the results section. URINE MICROSCOPIC Routine 03/31/2010 8:48 AM Resu lts for this PRODUCT DESIGNER procedure are i n the results section. URINALYSIS Routine 03/31/2010 8:48 AM Results f or this ROUTINE(MICRO IF POS) PRODUCT DESIGNER proced ure are in the results section. URINE CULTURE Routine 03/31/2010 8:48 AM Results for this PRODUCT DESIGNER procedure are i n the results section. documented in this encounter Results Sexually Transmitted Disease Probe (03/31/2010 9:50 AM PRODUCT DESIGNER) [facility] Method Time Signature Sexually SEE TEXT HP CONVERSION Transmitted Disease Probe Comment: STDPR Sexually Transmitted Disease DNA Probe ? ORDERED BY: PAMELA PUGH - SOURCE: Endocervical for molecular testi ng COLLECTED: ??03/31/10 09:50 ? PLATED: ? 03/31/10 09:55 Chlamydia trachomatis DNA Probe ?FINAL ? 04/02/10 13:52 Chlamydia trachomatis NEGATIVE by DNA a mplification The amplified DNA assay is cleared by [facility] for non-medicolegal diagnostic testing in [facility] adult population. Neisseria gonorrhea DNA Probe ?FINAL ? 04/02/10 13:52 Neisseria gonorrhea NEGATIVE by DNA amp lification. The amplified DNA assay is cleared by [facility] [employer] for non-medicolegal diagnostic testing in [facility] adult population. Specimen (Source) Anatomical Collection Method Collection Time Re ceived Time Location / / Volume Laterality 03/31/2010 9:50 AM PRODUCT DESIGNER Pamela Britton MD LAB_1 Performing Organization Address City/State/ZIP Code Phon e Number HP CONVERSION (ABNORMAL) Differential (03/31/2010 9:50 AM PRODUCT DESIGNER) [facility] Method Time Signature Absolute 2.8 2.0 [...] / / Volume Laterality 03/31/2010 9:50 AM PRODUCT DESIGNER Pamela Britton MD LAB_1 Performing Organization Address [facility] Code Phon e Number HP CONVERSION (ABNORMAL) Hemogram/Plts/Diff (03/31/2010 9:50 AM PRODUCT DESIGNER) Patholo gist Method Time Signature White Blood [...] / / Volume Laterality 03/31/2010 9:50 AM PRODUCT DESIGNER Pamela Britton MD LAB_1 Performing Organization Address [facility] Phon e Number HP CONVERSION Wet Prep (03/31/2010 9:40 AM PRODUCT DESIGNER) P athologist Signature Wet Prep SEE TEXT [...] / / Volume Laterality 03/31/2010 9:40 AM PRODUCT DESIGNER Pamela Britton MD LAB_1 Performing Organization Address [facility] Phon e Number HP CONVERSION Urine Culture (03/31/2010 8:48 AM PRODUCT DESIGNER) Analysis Performed At Patho logist Time Signature [...] / / Volume Laterality 03/31/2010 8:48 AM PRODUCT DESIGNER Pamela Britton MD LAB_1 Performing Organization Address [facility] Phon e Number HP CONVERSION (ABNORMAL) URINE MICROSCOPIC (03/31/2010 8:48 AM PRODUCT DESIGNER) [facility] Method Time Signature White Blood >100 (A) 0 - 4 /HPF HP CONVERSION Cells Urine Red Blood Cells 3-4 (A) 0 - 2 /HPF HP CONVERSION Urine Bacteria Urine Many (A) /HPF HP CONVERSION Epithelial Moderate /HPF HP CONVERSION Cells Specimen (Source) Anatomical Collection Method Collection Time Re ceived Time Location / / Volume Laterality 03/31/2010 8:48 AM PRODUCT DESIGNER Pamela Britton MD LAB_1 Performing Organization Address [facility] Phon e Number HP CONVERSION (ABNORMAL) URINALYSIS ROUTINE(MICRO IF POS) (03/31/2010 8:48 AM PRODUCT DESIGNER) [facility] gist Method Time Signature Urine [...] U Specific <=1.005 1.005 - HP CONVERSION [place] 1.030 Urobilinogen Negative Negative HP CONVERSION Urine Eu/dL Specimen (Source) Anatomical Collection Method Collection Time Re ceived Time Location / / Volume Laterality 03/31/2010 8:48 AM PRODUCT DESIGNER Pamela Britton MD LAB_1 Performing Organization Address [facility] Phon e Number HP CONVERSION documented in this encounter Visit Diagnoses Not on filedocumented in this encounter Care Teams Enrobing Machine Operator Relationship Specialty Start Date End Date Md Leigh MD PCP - General 05/26/10 05/11/13 [place] [address] documented as of this encounter
--- OUTSIDE RECORDS SUMMARY | 2021-11-01 06:41 | XMS_ITS | Encounter Summary ---
:1985 Author Organization [facility] Address [address] [place] [address] Care Team Providers Name Role Phone Md MINA Leigh Primary Care Provider Encounter Details Date Type Department Care Team Description 03/31/2010 PN Conversion Only HOAHAOISM CONVERSION Social History Tobacco Use Types Packs/Day Years Used Date Smoking Tobacco: Never Assessed Sex Assigned at Date Recorded Not on file documented as of this encounter Plan of Treatment Not on filedocumented as of this encounter Visit Diagnoses Not on filedocumented in this encounter Care Teams Clothes Designer Relationship Specialty Start Date End Date Md Leigh MD PCP - General 05/26/10 05/11/13 [place] [address] documented as of this encounter
--- OUTSIDE RECORDS SUMMARY | 2021-11-01 06:41 | XMS_ITS | Encounter Summary ---
:1985 Author Organization [facility] Address [address] [place] [address] Care Team Providers Name Role Phone Md MINA Leigh Primary Care Provider Encounter Details Date Type Department Care Team Description 04/06/2010 Office Visit [facility] Nanette Bravo, [address] [facility], PSYCHIATRIC REGISTERED [place] [address] [place] [address] [address] [place] [address] (Wo rk) Social History Tobacco Use Types Packs/Day Years Used Date Smoking Tobacco: Never Assessed Sex Assigned at Date Recorded Not on file documented as of this encounter Progress Notes Nanette Bravo, JUANITA, PSYCHIATRIC REGISTERED NURSE - 04/06/2010 12:01 AM CST SUBJECTIVE: Simona [...] discharged ambulatory and in stable condition. *SH~DNS~SOAP CTOR REHABILITATION PROGRAM documented in this encounter Plan of Treatment Not on filedocumented as of this encounter Visit Diagnoses Not on filedocumented in this encounter Care Teams Online Merchant Relationship Specialty Start Date End Date Md Leigh MD PCP - General 05/26/10 05/11/13 [place] [address] documented as of this encounter
--- OUTSIDE RECORDS SUMMARY | 2021-11-01 06:41 | XMS_ITS | Encounter Summary ---
:1985 Author Organization [facility] Address [address] [place] [address] Care Team Providers Name Role Phone Md MINA Leigh Primary Care Provider Reason for Visit Reason Comments Other Encounter Details Date Type Department Care Team Description 02/16/2009 Telephone [facility] [address] Li[address] Kay , CHIP WASHER, VENDING TECHNICIAN Other Obstetrics/Gynecolog y [address] [facility] 5th [place] [address] [place], [place] [address] (Wo rk) Social History Tobacco Use Types [...] 06/15/101938 Note Time: 02/16/09 0848 Status: Signed Hydraulics Engineer: Yulisa Carlson RN (Registered Nurse) MESSAGE TO [...] else is called to pharmacy, please use [facility] [address]. Pt can be reached at [phone], msg ok On 21Feb2009 5:18pm LIANG KAY [...] wrote: No response from patient, call closed. LE DRILLER documented in this encounter Plan of Treatment Not on filedocumented as of this encounter Visit Diagnoses Not on filedocumented in this encounter Care Teams Adult Literacy Instructor Relationship Specialty Start Date End Date Md Leigh MD PCP - General 05/26/10 05/11/13 [place] [address] documented as of this encounter
--- OUTSIDE RECORDS SUMMARY | 2021-11-01 06:41 | XMS_ITS | Encounter Summary ---
:1985 Author Organization [facility] Address [address] [place] [address] Care Team Providers Name Role Phone Md MINA Leigh Primary Care Provider Encounter Details Date Type Department Care Team Description 01/13/2009 Office Visit [facility] [address] Nanette Kay APRN, CNP Obstetrics/Gynecolog y [address] [facility] 5th [place] [address] [phone] Social History Tobacco Use Types Packs/Day Years Used Date Smoking Tobacco: Never Assessed Sex Assigned at Date Recorded Not on file documented as of this encounter Last Filed Vital Signs Vital Sign Reading Time Taken Comments Blood Pressure 122/65 01/13/2009 1:01 PM GROUP PROGRAM MANAGER Pulse 63 01/13/2009 1:01 PM GROUP PROGRAM MANAGER Temperature - - Respiratory Rate - - Oxygen Saturation - - Inhaled Oxygen Concentration - - Weight 52 kg (114 lb 9.5 oz) 01/13/2009 1:01 PM GROUP PROGRAM MANAGER C: 52.0kg Height 162.6 cm (5' 4) 01/13/2009 1:01 PM GROUP PROGRAM MANAGER C: 162.6 cm Body Mass Index 19.67 01/13/2009 1:01 PM GROUP PROGRAM MANAGER documented in this encounter Progress Notes Nanette Kay APRN, DON - 01/13/2009 12:01 AM CST H&P signed by OMAR Tucker at 01/23/092032 Author: OMAR Tucker Service: (none) Author Type: Nurse Practitioner Filed: 06/16/10 1807 Note Time: 01/13/09 0001 Status: Signed [place] Specialists: OMAR Tucker (Nurse Practitioner) NAME: ODESSA CHE MR#: [id number] ACCT: [id number] VISIT: [id number] DICTATING CLINICIAN: OMAR Tucker CONFIRM #: [id number] LOC: 412 CLINIC PHYSICAL DATE OF VISIT: 01/13/2009 SUBJECTIVE: : 1985. Kimberley is a nulliparous female who presents as new patient to me, as well as to Felipa Dang for health maintenance exam. Kimberley is currently using condoms for prevention and would really like to start oral contraceptives. 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 She has had 2 sexual partners historically. She has never been screened for gonorrhea or chlamydia. She believes her last Pap smear was about 2 years ago. As far as she knows, that was a normal exam. REDRYING MACHINE OPERATOR HISTORY: Onset of menses age [...] breast exam. OBSTETRICAL HISTORY: Not applicable. PAST REDRYING MACHINE OPERATOR HISTORY: Not applicable. NON-REDRYING MACHINE OPERATOR SURGERIES: Extraction of wisdom teeth. PERSONAL HEALTH HISTORY: Seasonal allergies. History of menstrual migraines that respond effectively to [id number] Excedrin migraine. She does not have any [...] pending. Will follow up based on results. JAR:[id number] C: 01/13/09 19:07 CONFIRM #: [id number] P PROGRAM MANAGER documented in this encounter Plan of Treatment Not on filedocumented as of this encounter Visit Diagnoses Not on filedocumented in this encounter Care Teams Form Maker Relationship Specialty Start Date End Date Md Lu, PCP - General 05/26/10 05/11/13 [place] [address] documented as of this encounter
[2021-11-01 07:35] LABS: Basophils Absolute Auto 0.03 K/uL (0.00-0.30); Basophils Percent Auto 0.3 % (0.0-3.0); Eosinophils Absolute Auto 0.16 K/uL (0.00-0.50); Eosinophils Percent Auto 1.6 % (0.0-7.0); Hemoglobin* 11.8 gm/dL (12.0-16.0); Immature Granulocytes Abs Auto 0.08 K/uL (0.00-0.30); Lymphocytes Percent Auto 15.9 % (20-44); Mean Corpuscular HGB Conc 34 gm/dL (32-36); Mean Corpuscular Hemoglobin 29 pg (26-34); Mean Corpuscular Volume 85 fL (80-100); Monocytes Percent Auto 8.3 % (0.0-11.0); Neutrophils Percent Auto 73.1 % (42.0-72.0); Platelet Count* 198 K/uL (140-440); Red Blood Count 4.14 m/uL (4.00-5.20)
[2021-11-01 07:50] LABS: Slide Review Reflex No
[2021-11-01 08:01] LABS: SARS PCR* Negative SARS-CoV-2 (Negative)
[2021-11-01] MEDS: miSOPROStoL 25 MCG/0.25 TABLET VAGINAL ×4 (08:50→18:29)
[2021-11-01] MEDS: LACTATED RINGERS 1000 ML 1,000 ML 125 ML IV (09:00)
--- NOTE | 2021-11-01 12:14 | P.LDBA_ITS ---
Subjective History of Present Illness Time Seen by Provider: 09:00 Date Seen: 11/01/21 Narrative: Patient is being admitted to Labor and Delivery for induction of labor secondary to suspected macrosomia. Other risk factors include advanced maternal age and 2 vessel umbilical cord. She is a 35 year old at 40 2/7 weeks gestation. Her full history and physical was dictated by Dr. Bailey on 10/12/2021. Please see this for details. She feels generally well this morning. Her fetus is active. She denies regular uterine contractions, but is feeling little cramping following administration of misoprostol. OB - H&P: Exam Physical Exam: Vital signs: Temp Pulse BP Pulse Ox 98.4 F 81 123/77 97 11/01/21 08:53 11/01/21 08:52 11/01/21 08:52 11/01/21 07:00 Narrative: VITAL SIGNS: Noted above. GENERAL APPEARANCE: Alert cooperative white female in no acute distress. MOOD AND AFFECT: Normal. CV: Heart regular rate and rhythm. PULM: Lungs clear to auscultation bilaterally. ABDOMEN: Soft, gravid, nontender. Fundal height is consistent with term gestation. The fetus is in a vertex presentation by Emiliano's and by bedside ultrasound. heart tones are present with the Doptones in the 140s. : Normal female external genitalia. Cervix is 1 cm dilated, 70% effaced, wi th vertex at -2 station, moderate consistency. EXTREMITIES: Without significant edema, nontender bilaterally. NEURO: Intact. OB - Problem Based A/P Additional Plan (1) Two vessel umbilical cord in mcguire , antepartum: Status: Acute (2) Advanced maternal age (AMA) in : Status: Acute (3) macrosomia affecting management of mother, antepartum: Status: Acute Plan Misoprostol per protocol for cervical ripening, then consider IV Pitocin and amniotomy. Delivery/Labor/Induction Plan Plan: induction Induction method: per misoprostol protocol
[2021-11-02] VITALS (82 sets, daily range): BP systolic 92–185; BP diastolic 50–146; PULSE 51–179; RESP 16–18; TEMP 36.6–37.1; O2SAT 98–100
[2021-11-02] MEDS: MORPHINE 10 MG/ML inj IM (02:10)
[2021-11-02] MEDS: hydrOXYzine pamoate 25 MG CAPSULE 100 MG PO (02:11)
[2021-11-02] MEDS: LACTATED RINGERS 1000 ML 1,000 ML 125 ML IV ×3 (02:34→18:12)
[2021-11-02] MEDS: OXYTOCIN 30 unit/500 ML in NS 30 UNIT/500 ML BAG IVPB (02:35)
[2021-11-02] MEDS: LIDOCAINE 2% (PF) 5 ML VIAL EPIDURAL (12:50)
[2021-11-02] MEDS: ROPIVACAINE 0.2% 100 ml 100 ML 12 MG EPIDURAL ×2 (12:52→20:22)
--- NOTE | 2021-11-02 13:09 | PM.ANBPRC ---
[facility] Medical History (Updated 11/01/21 @ 12:17 by Pauline Gramajo MD) COVID-19 virus infection Family history of Alzheimer's disease Family history of leukemia Family history of thyroid disease Family history of thyroid nodule History of migraine headaches Two vessel umbilical cord in mcguire , antepartum Surgical History (Updated 08/22/21 @ 16:21 by Isamar Mabry) History of foot surgery (2013) Family History (Updated 08/16/21 @ 10:07 by Isamar Mabry) Paternal Grandmother Alzheimer disease Maternal Grandfather Leukemia Other Thyroid disorder Thyroid nodule Social History Smoking Status: Never smoker Meds Home Medications and Allergies Home Medications Medication Instructions Recorded Confirmed Type cetirizine 10 mg tablet 10 mg PO DAILY 08/24/21 11/01/21 History cholecalciferol (vitamin D3) 25 25 mcg PO QDAY 08/24/21 11/01/21 History mcg (1,000 unit) chewable tablet ferrous sulfate 325 mg (65 mg 325 mg PO DAILY 08/24/21 11/01/21 History iron) tablet prenat.vits,bre,ktk-tdaz-zlwfl 1 tab PO QDAY 08/24/21 11/01/21 History riboflavin (vitamin B2) 100 mg 100 mg PO DAILY 08/24/21 11/01/21 History tablet Allergies Allergy/AdvReac Type Severity Reaction Status Date / Time No Known Allergies Allergy Unverified 10/31/21 09:18 Results Vital Signs Vital Signs: Last Vital Signs Temp 98.3 F 11/02/21 11:14 Pulse 78 11/02/21 13:03 Resp 16 11/02/21 11:14 BP 107/59 L 11/02/21 13:03 Pulse Ox 98 11/02/21 12:51 Weight: 80.038 kg Height: 162.56 cm Anesthesia Procedures Epidural Insertion Patient Location: OB Start Time: 12:00 Stop Time: 13:00 Start Date: 11/02/21 Stop Date: 11/02/21 Performed By: Kota Barbour Preanesthetic Checklist: IV checked, risks and benefits discussed, surgical consent, monitors and equipment checked, pre-op evaluation, timeout performed and anesthesia consent Prep: chlorhexidine gluconate Monitoring: blood pressure monitoring, strainer tender, continuous pulse oximetry and heart rate Approach: midline Vertebral Space: lumbar (1-5) Needle Type: Tuohy needle Injection Technique: continuous catheter Needle gauge: 17 Needle Length (cm): 10 cm Needle Insertion Depth (cm): 6 Catheter Gauge: 19 Catheter Type: multi-orifice Catheter at skin depth (cm): 12 Test Dose Result: negative and lidocaine 1.5% with epinephrine 1 to 200,000 Events: other
[2021-11-02] MEDS: PHENYLEPHRINE 100 MCG/ML SYRINGE IVP ×2 (14:52→23:52)
--- NOTE | 2021-11-02 16:09 | PM.OBPNL ---
Pain Control Time Seen by Provider: 16:09 Date Seen: 11/02/21 Pain control: tolerating well and epidural Contractions Monitor mode: External Contraction frequency: 6 Contraction pattern: Irregular Pelvic Exam Dilation (cm): 5 Effacement (%): 70 Station: -1 Fetus (Single) status: Category l Assessment and Plan Assessment: induction ongoing Comments: AROM of copious clear fluid. Consider Pitocin if contractions not adequate.
[2021-11-02] MEDS: LACTATED RINGERS 1000 ML 1,000 ML 1125 ML IV (23:04)
[2021-11-03] VITALS (86 sets, daily range): BP systolic 89–131; BP diastolic 52–87; PULSE 52–137; RESP 16–18; TEMP 36.4–37.2; O2SAT 95–98
[2021-11-03] MEDS: LACTATED RINGERS 1000 ML 1,000 ML 525 ML IV (02:08)
[2021-11-03] MEDS: ROPIVACAINE 0.2% 100 ml 100 ML 12 MG EPIDURAL ×2 (03:45→10:55)
[2021-11-03] MEDS: LACTATED RINGERS 1000 ML 1,000 ML 500 ML IV (04:15)
--- NOTE | 2021-11-03 04:35 | PM.OBPNL ---
Pain Control Time Seen by Provider: 04:36 Date Seen: 11/03/21 Pain control: tolerating well and epidural Contractions Monitor mode: External Contraction frequency: 6 Contraction pattern: Regular Contraction intensity: Moderate Pelvic Exam Dilation (cm): 8 Effacement (%): 80 Station: 0 Comments: mild caput Fetus (Single) Amniotic Membrane Status: AROM status: Category l Assessment and Plan Pitocin rate (mU/min): 9 Comments: Kimberley has been progressing through IOL until a few hours ago, when FHR decelerations necessitated discontinuation of Pitocin. FHR tracing now Category 1. Question contractions adequacy. IUPC placed; titrate oxytocin to adequacy.
[2021-11-03] MEDS: LACTATED RINGERS 1000 ML 1,000 ML 125 ML IV ×3 (09:25→16:44)
[2021-11-03] MEDS: LACTATED RINGERS 1000 ML 1,000 ML 825 ML IV (11:59)
--- NOTE | 2021-11-03 14:17 | SUR.ANES ---
1413. Called to bolus AYDEE for breakthrough L hip pain. level T10 on right, L5? on left. bolused with 5ml 2% lidocaine and tipped patient to left side. No room to manipulate catheter. CKoch REVENUE CYCLE ADMINISTRATOR
--- NOTE | 2021-11-03 15:31 | PM.OBPNL ---
Pain Control Time Seen by Provider: 15:31 Date Seen: 11/03/21 Pain control: epidural Contractions Monitor mode: External Contraction pattern: Regular Contraction intensity: Moderate Fetus (Single) Amniotic Membrane Status: AROM status: Category l Assessment and Plan Assessment: other Comments: Not progressing in Stage 2 of labor. Increased uterine pain, despite bolus of epidural. Requests . Risks and benefits of section discussed. All her questions answered to her satisfaction; she gave signed informed consent to proceed to the OR. After presurgical antibiotic prophylaxis, plan PLTCS, with postop TAP block.
[2021-11-03] MEDS: CEFAZOLIN 2 GM INJ IVP (15:50)
--- NOTE | 2021-11-03 16:43 | SUR.OPER ---
CORD BLOOD COLLECTED INTRAOPERATIVELY AND GIVEN TO OB RN- CAMRYN
--- NOTE | 2021-11-03 17:01 | PM.OBPRCCS ---
Procedure Pre-op/Post-op diagnoses: Operation Date: 11/03/21 16:15 Pre-Op/Post-Op Diagnoses Preop Dx: Induction of labor. Arrest of descent in Stage 2. Postop Dx: Viable vigorous male , LGA. Procedure Done: Global Procedure Details: Procedures Procedure: Primary low transverse section. Surgeon: Bill Lopez MD Assist: Shaun Pugh CST Anesthesia: regional, with postop TAP block Fluids: 1500mL crystalloid QBL: 910mL Drains: Bhatt to gravity. Urine: 200 pink-tinged intraop. Findings: Viable vigorous male in OA position, significant cephalic moulding, Apgars 8 at one minute and 9 at 5 minutes, weighing 4320g/9lbs 8oz. Trivascular intact placenta. Normal appearing uterus, bilateral ovaries and tubes. After risks and benefits of section discussed with Kimberley, all her questions were answered to her satisfaction; she gave informed consent to proceed to the OR. She was brought by gurney, and placed supine on the OR table. Ampicillin 2g IV given for surgical prophylaxis. Her epidural was bolused, and adequate anesthetic effect verified. She was prepped and draped in the usual fashion. A timeout was held. A Pfannnenstiel incision was made with the scalpel and carried sharply to the rectus fascia, which was nicked in the midline. The fascia was incised with curved Castaneda bilaterally. The rectus were divided sharply and bluntly in the midline with superior/inferior finger traction. The peritoneum was entered bluntly at the superior aspect of the incision. The incision was stretched with bilateral hand traction, and an James retractor placed. An inferior low transverse uterine incision was made with the scalpel, and extended bilaterally and superiorly with finger traction. Clear amniotic fluid return noted. The head was dislodged from the maternal pelvic outlet and gently lifted through the hysterotomy; the delivery of his body was accomplished with fundal pressure. IV oxytocin was initiated. He was dried and stimulated, and handed to waiting staff. The uterus was massaged and the placenta was expressed. The uterine cavity was cleared of clots and debris with a moist sponge. The hysterotomy was closed with running locking 0 Vicryl; a second horizontal imbricating layer of the same suture was placed. The pelvis was irrigated with warm normal saline. Excellent hemostasis was noted. The parietal peritoneum was reapproximated with running 3-0 plain gut. The left aspect of the fascial incision was made hemostatic with electrocautery and a single figure-of-X of 3-0 plain gut was placed in the same area of the anterior abdominal wall. The fascia was closed with running 0 PDS in a running fashion by halves, tying in the midline. The subcutaneous tissue was reinforced with running 3-0 plain gut. The skin was closed with running subcuticular 4-0 Monocryl, and covered with skin glue and a telfa dressing. All instrument, sharp, and sponge counts were correct at the conclusion of the case. Kimberley tolerated the procedure well, and remained in the OR in stable condition for TAP block. Disposition: floor OB Delivery Proc Additional Procedures Tubal Ligation at the time of : No Other: No
--- NOTE | 2021-11-03 17:17 | W.ANESCHARGE ---
Anesthesia Charges Start Date/Time Anesthesia Start Date: 11/03/21 Anesthesia Start Time: 15:50 Stop Date/Time Anesthesia Stop Date: 11/03/21 Anesthesia Stop Time: 17:10 Summary Emergency: Yes
--- NOTE | 2021-11-03 17:17 | W.PM.NB ---
Nerve Block Nerve Block Time Seen by Provider: 17:05 Date Seen: 11/03/21 Type of block requested by surgeon for post-operative analgesia: TAP Side: bilateral Time out performed: Yes Verification of patient name: Yes Verification of date of : Yes Site marking: site marked Name of person performing procedure: Danielito Chaudhary Continuous monitoring Was continuous monitoring of O2 sat, B/P, cardiac cath lab manager, recorded every 15 minutes?: Yes Procedure Checklist: sterile prep, needles and gloves Ultrasound guided. Images saved: Yes Medications given in 5ml increments after negative aspiration: Marcaine %: 0.25 mL: 30 Needle gauge: 20 and Exparel mL: 10 Needle gauge: 20 Patient tolerated procedure well: Yes Additional comments: Injected in 5ml increments after negative aspiration Block Charges Block Charge (with Pro Fee): TAP Bilateral Use of Ultrasound Machine for Block: Yes- US Guidance/pain block
[2021-11-03] MEDS: KETOROLAC 30 MG/ML inj IVP (22:39)
[2021-11-04] VITALS (22 sets, daily range): BP systolic 101–122; BP diastolic 8–83; PULSE 78–97; RESP 16; TEMP 36.6–37.2; O2SAT 93–98
[2021-11-04] MEDS: KETOROLAC 30 MG/ML inj IVP ×3 (05:16→17:57)
[2021-11-04 07:07] LABS: Basophils Percent Auto 0.2 % (0.0-3.0); Eosinophils Percent Auto 1.3 % (0.0-7.0); Hemoglobin* 8.5 gm/dL (12.0-16.0); Immature Granulocytes Abs Auto 0.06 K/uL (0.00-0.30); Lymphocytes Percent Auto 9.2 % (20-44); Mean Corpuscular HGB Conc 34 gm/dL (32-36); Mean Corpuscular Hemoglobin 29 pg (26-34); Mean Corpuscular Volume 85 fL (80-100); Monocytes Percent Auto 6.9 % (0.0-11.0); Platelet Count* 175 K/uL (140-440); RDW Coefficient of Variation % 14.3 % (11.5-15.5); Red Blood Count 2.94 m/uL (4.00-5.20); White Blood Count* 14.27 K/uL (4.50-11.00)
[2021-11-04 07:09] LABS: Slide Review Reflex No
[2021-11-04] MEDS: DOCUSATE SODIUM 100 MG CAPSULE PO (08:28)
--- NOTE | 2021-11-04 16:38 | PM.OBPNCS1 ---
OB - PN: A/P Assessment and Plan (1) Two vessel umbilical cord in mcguire , antepartum: Problem details: Placenta exam by Pathology Status: Acute (2) macrosomia affecting management of mother, antepartum: Status: Acute Assessment and Plan: Monitor blood sugar. Teach good latch. Use formula on nipple, and with syringe. (3) Acute blood loss anemia (ABLA): Status: Acute Assessment and Plan: Asymptomatic. Discussed options of oral iron, IV iron, or PRBC; she chooses to resume FeSO4 and PNV after diet and bowel function back to normal. Repeat CBC ordered to tomorrow morning. Plan day: 1 Plan: routine postop care Comments: Ambulate for 10 minutes QID, with abdominal binder. Possibly home tomorrow if mom and baby both meeting goals, otherwise discharge 11.06.2021. OB - PN: Subj Subjective Date Seen: 11/04/21 Narrative: Kimberley reports pain controlled when sitting or lying down. Lochia is moderate, decreasing; one clot the size of golf ball. She is tolerating regular diet and passing flatus; no N/V. Bladder function seems normal. Endorses fatigue; denies SOB, lightheadedness when ambulating. LE edema uncomfortable, but decreasing. Son Brigido latching well, but needs formula to maintain blood sugars. OB - PN: Obj Exam Physical Exam: Vital signs: Temp Pulse Resp BP Pulse Ox O2 Del Method 98.1 F 78 16 110/74 97 11/04/21 15:39 11/04/21 15:39 11/04/21 15:39 11/04/21 15:39 11/04/21 15:39 11/04/21 15:39 Constitutional: Constitutional: no acute distress and average body habitus Routine Neck Exam: Neck: Present full ROM Routine Respiratory Exam: Comments: Normal respiratory effort. No accessory muscle use, cough, or wheeze. Routine Cardiovascular Exam: Cardiovascular: Present RRR Routine Abdominal Exam: Comments: Round, soft, appropriate general tenderness. No guarding or rebound. Incision clean, dry, intact with suture and skin glue; no surrounding erythema, ecchymosis, or unusual induration. Routine Back/Spine/Pelvis Exam: Back/Spine: Present full ROM Routine Neurological Exam: Neurological: Present alert, CN II-XII intact and moving all extremities Routine Psychiatric Exam: Psychiatric: Present normal affect, normal thought process, cooperative, good insight and good judgment Urinary Catheter Management: Urethral: Cath placed during this visit: yes Urethral indwelling: No Insertion date: 11/03/21 Insertion time: 15:57 OB - PN: Obj Data Labs Labs: Laboratory Results - last 24 hr 11/04/21 06:52 WBC 14.27 H RBC 2.94 L Hgb 8.5 L Hct 25.0 L MCV 85 MCH 29 MCHC 34 RDW Coeff of Neal 14.3 Plt Count 175 Neut % (Auto) 82.0 H Lymph % (Auto) 9.2 L [place] % (Auto) 6.9 Eos % (Auto) 1.3 Baso % (Auto) 0.2 Neut # (Auto) 11.70 H Lymph # (Auto) 1.30 [place] # (Auto) 1.00 H Eos # (Auto) 0.20 Baso # (Auto) 0.00 Abs Immat Gran (auto) 0.06
[2021-11-05] MEDS: KETOROLAC 30 MG/ML inj IVP (00:07)
[2021-11-05] MEDS: IBUPROFEN 600 MG TABLET PO ×2 (04:25→14:06)
[2021-11-05 05:39] VITALS: BP 110/71; PULSE 80; RESP 16; TEMP 36.6; O2SAT 98
[2021-11-05 06:49] LABS: Basophils Percent Auto 0.4 % (0.0-3.0); Eosinophils Percent Auto 2.5 % (0.0-7.0); Hematocrit 21.6 % (33.0-51.0); Immature Granulocytes Abs Auto 0.06 K/uL (0.00-0.30); Lymphocytes Percent Auto 12.8 % (20-44); Mean Corpuscular HGB Conc 34 gm/dL (32-36); Mean Corpuscular Hemoglobin 29 pg (26-34); Mean Corpuscular Volume 86 fL (80-100); Monocytes Percent Auto 7.1 % (0.0-11.0); Neutrophils Percent Auto 76.7 % (42.0-72.0); Platelet Count* 165 K/uL (140-440); RDW Coefficient of Variation % 14.5 % (11.5-15.5); Red Blood Count 2.51 m/uL (4.00-5.20); White Blood Count* 11.05 K/uL (4.50-11.00)
[2021-11-05 07:00] LABS: Hemoglobin* 7.3 gm/dL (12.0-16.0)
[2021-11-05 07:10] LABS: Slide Review Reflex No
--- NOTE | 2021-11-05 08:56 | P.DS_ITS ---
Documented by User: Chasity Atkins CNM 11/05/21 12:50 DS: Providers Provider Time Seen by Provider: 08:56 Date Seen: 11/05/21 Date of admission: 11/01/21 06:35 Primary care physician: Stacy Valencia CNP Admitting Clinician: Pauline Gramajo MD Attending Physician on discharge: Chasity Atkins CNM Date of Discharge: 11/05/21 DS: Diagnosis Discharge Diagnosis (1) state: Status: Acute (2) Acute blood loss anemia (ABLA): Status: Acute (3) Status post delivery: Status: Acute (4) Lactating mother: Status: Acute Exam Const: Vital Signs, click to edit/add: Vital Signs - 24 hr 11/04/21 10:27 11/04/21 09:00 11/04/21 10:00 Temperature 98.2 F Pulse Rate [Blood Pressure Cuff] 81 Respiratory Rate 16 16 16 Blood Pressure [Ri ght Arm] 119/8 L Pulse Oximetry 93 Oxygen Delivery Me thod Room Air 11/04/21 12:02 11/04/21 11:00 11/04/21 12:00 Temperature 97.9 F Pulse Rate [Blood Pressure Cuff] 97 Respiratory Rate 16 16 16 Blood Pressure [Ri ght Arm] 105/72 Pulse Oximetry 95 Oxygen Delivery Me thod Room Air 11/04/21 13:00 11/04/21 14:05 11/04/21 15:39 Temperature 98.1 F Pulse Rate [Blood Pressure Cuff] 78 Respiratory Rate 16 16 16 Blood Pressure [Ri ght Arm] 110/74 Pulse Oximetry 97 Oxygen Delivery Me thod Room Air 11/04/21 15:00 11/04/21 16:00 11/04/21 23:13 Temperature Pulse Rate [Blood Pressure Cuff] 78 Respiratory Rate 16 16 16 Blood Pressure [Ri ght Arm] 122/83 Pulse Oximetry 98 Oxygen Delivery Me thod Room Air 11/05/21 05:39 Temperature 97.9 F Pulse Rate [Blood Pressure Cuff] 80 Respiratory Rate 16 Blood Pressure [Ri ght Arm] 110/71 Pulse Oximetry 98 Oxygen Delivery Me thod Room Air Common normals: no apparent distress, average body habitus, oriented x3, healthy appearing, alert and well nourished General appearance: cooperative, comfortable, well kempt and well developed Orientation/consciousness: Yes awake, Yes oriented to person, Yes oriented to place and Yes oriented to time HENMT: Common normals: normocephalic Head and scalp: normocephalic Eye: General eye: normal appearance of both eyes Neck & C-Spine: Common normals: full ROM and supple Cervical spine: cervical ROM normal Chest: Common normals: inspection of chest normal and palpation of chest normal Chest: symmetrical chest wall rise Resp: Common normals: normal respiratory effort, no retractions, no use of accessory muscles and clear to auscultation bilaterally Effort & inspection: able to speak in complete sentences Auscultation: clear to auscultation bilaterally Cardio: Common normals: regular rate and regular rhythm Rate: regular rate Rhythm: regular rhythm GI: Common normals: Normal to inspection, nondistended, normoactive bowel sounds present and soft to palpation; tender Inspection: normal to inspection Auscultation: normoactive bowel sounds Palpation: soft and tender Back & Pelvis: Common normals: thoracic and lumbar spine normal to inspection and no thoracic nor lumbar tenderness Thoracic spine/upper back: normal to inspection and thoracic ROM normal Lumbar spine/lower back: normal to inspection and lumbar ROM normal Extremity: Common normals: normal to inspection General: edema (+1 bipedal edema) Neuro: Common normals: oriented x3 Sensorium/orientation: awake, alert, oriented to person, oriented to place and oriented to time Psych: Common normals: mental status grossly normal, thought process normal, cooperative, affect normal, speech normal and activity/motor behavior normal Appearance: well kempt Speech: normal speech Thought process: normal thought process Skin: Common normals: no rashes or lesions noted Narrative: General skin exam: no rashes or lesions noted Trauma: laceration (Low transverse ,well approximated, dry, no bleeding/drainage) DS: Data Data Completed and Pending Labs on day of discharge: Labs from last 24 hours 11/05/21 06:36 WBC 11.05 H RBC 2.51 L Hgb 7.3 L* Hct 21.6 L MCV 86 MCH 29 MCHC 34 RDW Coeff of Neal 14.5 Plt Count 165 Neut % (Auto) 76.7 H Lymph % (Auto) 12.8 L [place] % (Auto) 7.1 Eos % (Auto) 2.5 Baso % (Auto) 0.4 Neut # (Auto) 8.50 H Lymph # (Auto) 1.40 [place] # (Auto) 0.80 Eos # (Auto) 0.30 Baso # (Auto) 0.00 Abs Immat Gran (auto) 0.06 OB - DS: Summary Hospital Course Hospital Course: Kimberley is a 35 year old G 1 now P 1 at 40 2/7 weeks gestation that was admitted to the Center on 11/01/21 for for induction of labor secondary to suspected macrosomia.? Other risk factors include advanced maternal age and 2 vessel umbilical cord. She had an uncomplicated delivery after arrest of descent in Stage 2. She delivered a viable male, Brigido, . She is breast feeding and supplementing with SNS. the patient has done well except for acute anemia with an Hgb of 7.3 this morning. Pt reports feeling a little dizzy this morning before breakfast, but denies lightheadedness, shortness of breath or fatigue other than tiredness from not sleeping well in the hospital. Discussed low Hgb and options for blood transfusion, IV iron, or PO iron supplementation. Pt prefers PO iron and will continue to eat high iron foods. S/s of anemia reviewed, pt agreed to call clinic if dizziness/light headedness, shortness of breath, fatigue or increased bleeding present post . Would like to discharge home today. Peripartum Data Procedures: Procedures Operation Date: 11/03/21 16:15 Actual Procedure Side Surgeon p PRIMARY LOW TRANSVERSE SECTION Bill Lopez MD complications: other (Anemia hgb 7.3) Gender: Male Discharge Plan: Home Time Spent with Patient Time attestation: Total time spent providing and/or coordinating discharge services: Discharge Plan Discharge Disposition: Home, Self-Care Date of Admission: 11/01/21 06:35 Attending Provider on Discharge: Chasity Atkins Primary Care Provider: Stacy Valencia Condition: Stable Anticipated Discharge Date/Time: 11/05/21 12:40 Discharge Medications: New acetaminophen 500 mg Tablet 1,000 mg PO Q6H PRN (Reason: pain 1H after NSAID) Qty: 0 0RF docusate sodium 100 mg Capsule 100 mg PO DAILY Qty: 100 1RF ibuprofen 600 mg Tablet 600 mg PO Q6H PRNQty: 90 1RF oxycodone 5 mg Tablet 5 - 10 mg PO Q4H PRN (Reason: Pain 1H after acetaminophen) Qty: 20 0RF oxycodone 5 mg tablet 5 mg PO Q4H PRN (Reason: pain) Qty: 20 0RF ibuprofen 600 mg tablet 600 mg PO Q6H PRNQty: 60 0RF docusate sodium 100 mg capsule 100 mg PO DAILY Qty: 100 0RF Rx Instructions: take 1 cap 1-2 times a day as needed for constipation Continued cholecalciferol (vitamin D3) 25 mcg (1,000 unit) tablet,chewable 25 mcg PO QDAY ferrous sulfate 325 mg (65 mg iron) tablet 325 mg PO DAILY riboflavin (vitamin B2) 100 mg tablet 100 mg PO DAILY cetirizine 10 mg tablet 10 mg PO DAILY prenat.vits,bre,xfs-qdul-qwtrw Tablet 1 tab PO QDAY Discharge Orders: Discharge Order (Routine); Ordered 11/05/21 Ordered By: Chasity Atkins Patient Education: OB Over the Counter Medication Information, OB /Breast Feeding Activity Restrictions/Additional Instructions: Discharge instructions were reviewed with the patient including signs and symptoms of infection and home going medications Lifting Restrictions: 20 pounds for 6 weeks No not submerge incision under water X 2 weeks? Nothing vaginally for 6 weeks: no tampons or intercourse Do not drive while taking narcotic pain medication(s) Off Work or School for 8 weeks Symptoms to report to doctor: * Bleeding that saturates more than one pad per hour * Passing clots larger than the size of a golf ball * Pain not relieved by prescribed medication * Fever above 100.4 degrees Fahrenheit * A foul vaginal odor * Difficulty in emotions, mood, and functions * Thoughts of hurting yourself and/or * Painful, reddened area in your breast * Any drainage, redness, or tenderness in your IV/epidural site * Severe headache that doesn't improve after taking medications * Changes in vision, including temporary loss of vision, blurred vision, and/or light sensitivity * Upper abdominal pain (usually under ribs on the right side) * Decrease in urination or painful, frequent urinating * Chest pain * Shortness of breath * Tenderness or pain with redness and/swelling in the calf(s) of your leg 2-week visit: incision check, discuss feeding concerns, review control options and screen for anxiety/depression. 6-week visit for an annual exam. consultation services are available to all mothers and babies for the first year after delivery.? To make an appointment, please call [phone]. Activity Level: Activity as Tolerated Discharge Diet: Regular Follow Up Appointments: [facility] [Provider Group] (2 and 6 week visits) Forms: [employer] Info Instructions Documented by User: Renetta Alexander CNM 11/08/21 21:43 DS: Diagnosis Discharge Diagnosis (1) state: Status: Acute (2) Acute blood loss anemia (ABLA): Status: Acute (3) Status post delivery: Status: Acute (4) Lactating mother: Status: Acute Exam : Uterus: 3/U (firm) Lochia: scant OB - DS: Summary Status at Discharge Functional status at discharge: independent ambulation Overall status at discharge: patient is progressing back to baseline Time Spent with Patient Time spent: Less than 30 minutes Discharge Plan Discharge Disposition: Home, Self-Care Date of Admission: 11/01/21 06:35 Attending Provider on Discharge: Chasity Atkins Primary Care Provider: Stacy Valencia Condition: Stable Anticipated Discharge Date/Time: 11/05/21 12:40 Discharge Medications: New acetaminophen 500 mg Tablet 1,000 mg PO Q6H PRN (Reason: pain 1H after NSAID) Qty: 0 0RF docusate sodium 100 mg Capsule 100 mg PO DAILY Qty: 100 1RF ibuprofen 600 mg Tablet 600 mg PO Q6H PRNQty: 90 1RF oxycodone 5 mg Tablet 5 - 10 mg PO Q4H PRN (Reason: Pain 1H after acetaminophen) Qty: 20 0RF oxycodone 5 mg tablet 5 mg PO Q4H PRN (Reason: pain) Qty: 20 0RF ibuprofen 600 mg tablet 600 mg PO Q6H PRNQty: 60 0RF docusate sodium 100 mg capsule 100 mg PO DAILY Qty: 100 0RF Rx Instructions: take 1 cap 1-2 times a day as needed for constipation Continued cholecalciferol (vitamin D3) 25 mcg (1,000 unit) tablet,chewable 25 mcg PO QDAY ferrous sulfate 325 mg (65 mg iron) tablet 325 mg PO DAILY riboflavin (vitamin B2) 100 mg tablet 100 mg PO DAILY cetirizine 10 mg tablet 10 mg PO DAILY prenat.vits,bre,gje-hhzf-fiiru Tablet 1 tab PO QDAY Discharge Orders: Discharge Order (Routine); Ordered 11/05/21 Ordered By: Chasity Atkins Patient Education: OB Over the Counter Medication Information, OB /Breast Feeding Activity Restrictions/Additional Instructions: Discharge instructions were reviewed with the patient including signs and symptoms of infection and home going medications Lifting Restrictions: 20 pounds for 6 weeks No not submerge incision under water X 2 weeks? Nothing vaginally for 6 weeks: no tampons or intercourse Do not drive while taking narcotic pain medication(s) Off Work or School for 8 weeks Symptoms to report to doctor: * Bleeding that saturates more than one pad per hour * Passing clots larger than the size of a golf ball * Pain not relieved by prescribed medication * Fever above 100.4 degrees Fahrenheit * A foul vaginal odor * Difficulty in emotions, mood, and functions * Thoughts of hurting yourself and/or * Painful, reddened area in your breast * Any drainage, redness, or tenderness in your IV/epidural site * Severe headache that doesn't improve after taking medications * Changes in vision, including temporary loss of vision, blurred vision, and/or light sensitivity * Upper abdominal pain (usually under ribs on the right side) * Decrease in urination or painful, frequent urinating * Chest pain * Shortness of breath * Tenderness or pain with redness and/swelling in the calf(s) of your leg 2-week visit: incision check, discuss infant feeding concerns, review control options and screen for anxiety/depression. 6-week visit for an annual exam. consultation services are available to all mothers and babies for the first year after delivery.? To make an appointment, please call [phone]. Activity Level: Activity as Tolerated Discharge Diet: Regular Follow Up Appointments: [facility] [Provider Group] (2 and 6 week visits) Forms: [employer] Info Instructions
[2021-11-05 09:12] VITALS: BP 111/74; PULSE 72; RESP 16; TEMP 36.8; O2SAT 97
[2021-11-05] MEDS: DOCUSATE SODIUM 100 MG CAPSULE PO (09:19)
== END 2021-11-05 16:30 | disposition home or self-care (01) | DRG 540 ==
PROVIDERS: Obstetrics & Gynecology; Admitting Provider Obstetrics & Gynecology; PCP Nurse Practitioner Family; Visit Provider Obstetrics & Gynecology
PROC: 10D00Z1 Extraction of Products of Conception, Low, Open Approach (ICD-10-PCS; CPT 59514; principal; 2021-11-03 16:00)
DX: O36.63X0 Maternal care for excessive fetal growth, third trimester, not applicable or unspecified (principal); O76 Abnormality in fetal heart rate and rhythm complicating labor and delivery; O69.89X0 Labor and delivery complicated by other cord complications, not applicable or unspecified; O32.4XX0 Maternal care for high head at term, not applicable or unspecified; O90.81 Anemia of the puerperium; D62 Acute posthemorrhagic anemia; Z3A.40 40 weeks gestation of pregnancy; Z37.0 Single live birth
CPT/HCPCS: 01967; 01968; 36415; 59200; 64488; 76942; 85025; 86850; 86870; 86880; 86900; 86901; 87635; 99140; A9270; J0690; J1100; J1885; J2270; J2274; J2370; J2405; J2590; J2795; J3010; J7120

== ENCOUNTER 2021-12-18 11:17 | Outpatient (CLI) | payer BC, SELFPAY | END 2021-12-18 11:18 | disposition home or self-care (01) | PROVIDERS: PCP Nurse Practitioner Family; Visit Provider Registered Nurse | DX: Z39.2 Encounter for routine postpartum follow-up (principal); Z12.4 Encounter for screening for malignant neoplasm of cervix | CPT/HCPCS: 87624; 88174; 88175 ==

== ENCOUNTER 2023-12-23 13:30 | Outpatient (CLI) | payer BC, SELFPAY ==
--- NOTE | 2023-12-23 14:40 | CRLHL7_ITS ---
For Patients: As a result of the Century Cures Act, medical imaging exams and procedure reports are released immediately into your electronic medical record. You may view this report before your referring provider. If you have questions, please contact your health care provider. BILATERAL SCREENING MAMMOGRAM WITH COMPUTER-AIDED DETECTION AND TOMOSYNTHESIS TECHNIQUE: CC and MLO views were obtained. These mammographic images have been obtained using full-field digital technique. These mammographic images were interpreted with the benefit of computer-aided detection. Breast Tomosynthesis was used in this interpretation. COMPARISON FILM: Baseline. FINDINGS: The breasts are heterogeneously dense, which may obscure small masses IMPRESSION: There is no radiographic evidence for malignancy. ASSESSMENT: BI-RADS Category 2: Benign RECOMMENDATION: Routine screening mammogram in 1 year. A lay language report of this examination will be provided to the patient. Twin Sykes M.D. Diagnostic Radiologist [email or web address] FELICIA/Dictated by: Twin Sykes MD @ 12/24/2023 10:14:00 AM (Electronically Signed)
== END 2023-12-23 13:31 | disposition home or self-care (01) ==
LOC: MAMMO 13:31
PROVIDERS: Visit Provider Registered Nurse
DX: Z12.31 Encounter for screening mammogram for malignant neoplasm of breast (principal); R92.333 Mammographic heterogeneous density, bilateral breasts
CPT/HCPCS: 77063; 77067; 80061; 82947; 84443; 87624; 88142

== ENCOUNTER 2023-12-23 14:08 | Outpatient (CLI) | payer BC, SELFPAY ==
--- OUTSIDE RECORDS SUMMARY | 2023-12-23 14:10 | XMS_ITS | Clinical Summary ---
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 08/05/2023 Active Active Problems No known active problems Social History Tobacco Use Types Packs/Day Years Used Date Smoking Tobacco: Never Smokeless Tobacco: Never Tobacco Cessation:Counseling Given: Not Answered Sex and Gender Information Value Date Recorded Sex Assigned at Not on file Gender Identity Not on file Sexual Orientation Not on file Obstetrics History Last Filed Vital Signs Vital Sign Reading Time Taken Comments Blood Pressure 112/76 08/28/2023 12:41 PM CDT Pulse 96 08/28/2023 12:41 PM CDT Temperature 37.2 ??C (99 ??F) 08/28/2023 12: 41 PM CDT Respiratory Rate 16 08/28/2023 12:4 1 PM CDT Oxygen Saturation 99% 08/28/2023 12: 41 PM CDT Inhaled Oxygen Concentration - - Weight 64.3 kg (141 lb 12.8 oz) 024 12:41 PM CDT Height - - Body Mass Index - - Plan of Treatment Health Maintenance Due Date Last Done Comments Tdap 12/15/1994 Depression screening for age 12+ 1995 HIV for age 15-65 12/15/1998 BMI (ht and wt on same day) for age 18+ 12/15/2001 Hepatitis C screening for age 18-79 12/15/2001 Tetanus booster 2003 COVID-19 vaccine series ( season) 2023 06/05/2020, 05/06/2020 Influenza for age 9-49 10/26/2023 Pap test for age 21-65 12/20/2025 , 12/20/2022, 12/18/2021, Additional history exists Pneumococcal series for age 6-64 Aged Out No longer eligible based on patient's age to complete this topic Procedures Procedure Name Priority Date/Time Associated Diagnosis Comments HPV HIGH RISK Routine 12/20/2022 10:30 AM CDT from Last 3 Months or Most Recently Relevant to Health Maintenance Results * HPV HIGH RISK (12/20/2022 10:30 AM CDT) TYPE 16 Negative Negative 12/25/2022 1:54 PM CDT [facility] TYPE 18 Negative Negative 12/25/2022 1:54 PM CDT [facility] OTHER HIGH RISK TYPES Negative Negative 12/25/2022 1:54 PM CDT [facility] Other (Cervical) 12/20/2022 10:30 AM CDT 12/23/2022 12:05 PM CDT Narrative [facility] - 12/25/2022 1:54 PM CDT HPV types 16, 18, 31, 33, 35, 39, 45, 51, 52, 56, 58, 59, 66 and 68 DNA were undetectable or below the pre-set threshold. Methodology: Dania Otilio 4800 HPV Test Luiza Orozco NP MICROBIOLOGY [facility] [address] [place] [address], from Last 3 Months or Most Recently Relevant to Health Maintenance Care Teams Swimming Pool Serviceperson Relationship Specialty Start Date End Date Unknown, Doctor . PCP - General 08/28/23
--- OUTSIDE RECORDS SUMMARY | 2023-12-23 14:10 | XMS_ITS | Clinical Summary ---
Author Organization [facility] Address [address] [place] [address] Care Team Providers Care Tax Record Clerk Name Role Phone Jie Farah DO Primary Care Provider [phone] Source Comments You are receiving this document as you are listed as the primary care provider,follow-up provider, or the patient has been referred to you for consultation.This is in compliance with the Medicare andSelect Medical [facility] Hospital[facility] EHR Incentive Program,which states Providers who transition their patient to another setting of careor provider of care or refers their patient to another provider of care shouldprovide summary care record for each transition of care or referral. [employer] Allergies No known active allergies Medications Medication Sig Dispensed Refills Start Date End Date Status 03/15 1-20 MG-MCG tablet TAKE 1 TAB BY MOUTH DAILY. 84 Tablet 03/11/2018 Active SUMAtriptan (IMITREX) 100 MG tablet Take 1 Tablet by mouth as needed for Migraine. 27 Tablet 06/02/2020 Active Active Problems Problem Noted Date Diagnosed Date Migraine without aura 05/14/2016 Hyperhidrosis 01/23/2011 Encounter for other general counseling or advice on contraception 01/13/2009 Overview (10/16/2016): Control Counseling & Rx Resolved Problems Problem Noted Date Diagnosed Date Resolved Date Anemia 12/30/2013 Immunizations Name Administration Dates Next Due DTP 06/12/1984,04/17/1984,02/11/1984 DTaP 07/25/1989,09/06/1985 HepB, Unspecified Formulation 02/28/2000, 000,09/05/1999 Hib, Unspecified Formulation 12/10/1985 MMR 04/20/1996,03/12/1985 Moderna Monovalent 12+ 06/05/2020,05/06/2020 OPV, Trivalent (Orimune or tOPV) 04/17/1984,01/24 Polio, Unspecified Formulation 07/25/1989,1985 TDAP (BOOSTRIX) 07/30/2012 Td 04/20/1996 Family History Medical History Relation Name Comments High Cholesterol Father Thyroid Disorder Mother Cancer Maternal Grandfather leukemi a Diabetes Paternal Grandfather Alzheimer's Paternal Grandmother Relation Name Status Comments Father Alive Mother Alive Brother Alive Maternal Grandfather Maternal Grandmother Alive Paternal Grandfather Paternal Grandmother Social History Tobacco Use Types Packs/Day Years Used Date Smoking Tobacco: Never Smokeless Tobacco: Never Alcohol Use Standard Drinks/Week Comments Yes 2 (1 standard drink = 0.6 oz pure alcohol) 2-3 per glasses drinks per week PHQ-2 Answer Date Recorded PHQ-2 Score 0 02/15/2019 Sex and Gender Information Value Date Recorded Sex Assigned at Not on file Gender Identity Not on file Sexual Orientation Not on file Last Filed Vital Signs Vital Sign Reading Time Taken Comments Blood Pressure 97/57 02/15/2019 9:07 AM DIPPING MACHINE OPERATOR Pulse 61 02/15/2019 9:07 AM DIPPING MACHINE OPERATOR Temperature 36.8 ??C (98.3 ??F) 04/07/2017 5:36 PM CS T Respiratory Rate 16 04/07/2017 5:36 PM DIPPING MACHINE OPERATOR Oxygen Saturation 100% 09/25/2014 9:05 AM CDT Inhaled Oxygen Concentration - - Weight 54.7 kg (120 lb 9.6 oz) 02/15/2019 9:07 AM DIPPING MACHINE OPERATOR Height 168.3 cm (5' 6.25) 04/09/2017 3:19 PM CS T Body Mass Index 19.32 04/09/2017 3:19 PM DIPPING MACHINE OPERATOR Plan of Treatment Health Maintenance Due Date Last Done Comments Mammogram 1983 Cervical Cancer Screening 03/02/20182015, 07/30/2012, 01/13/2009 Adult Preventive Visit 04/09/2019 04/09/2017, 2016 DTaP/Tdap/Td (7 - Tdap) 07/30/2022 07/31/19 13, 04/20/1996, 07/25/1989, Additional history exists COVID-19 Vaccine ( season) 2023 06/05/2020, 05/06/2020 Influenza (#1) 2023 Zoster/Shingles (1 of 2) 12/15/2033 Hib Completed 12/10/1985 IPV (Polio) Completed 07/25/1989, 08/24, 04/17/1984, Additional history exists HepB Completed 02/28/2000, 09/24, 09/05/1999 HIV Screening (Preventive Services) Completed 07/30/2012 Hep C Screening (Preventive Services) Completed 07/30/2012 HPV Vaccine Aged Out No longer eligi ble based on patient's age to complete this topic HepA Aged Out No longer eligi ble based on patient's age to complete this topic Infant RSV Aged Out No longer eligi ble based on patient's age to complete this topic MCV4 Aged Out No longer eligi ble based on patient's age to complete this topic Pneumococcal Aged Out No longer eligi ble based on patient's age to complete this topic Procedures Procedure Name Priority Date/Time Associated Diagnosis Comments ANATOMICAL PATH LIQUID BASED Routine 03/02/2015 8:59 AM DIPPING MACHINE OPERATOR HIV ANTIBODY Routine 07/30/2012 12:11 PM CDT Special screening examination for other specified viral diseases HEPATITIS C ANTIBODY, WITH REFLEX Routine 07/30/2012 12:11 PM CDT Special screening examination for other specified viral diseases from Last 3 Months or Most Recently Relevant to Health Maintenance Results * Pap Smear (03/02/2015 8:59 AM DIPPING MACHINE OPERATOR) 03/02/2015 8:59 AM DIPPING MACHINE OPERATOR Narrative HP CONVERSION - 03/06/2015 5:14 PM DIPPING MACHINE OPERATOR FINAL GYNECOLOGICAL CYTOLOGY REPORT Pathology #: [id number] ?Date Obtained: 03/02/2015 ? Date Received: 03/03/2015 INTERPRETATION/RESULTS: Negative for Intraepithelial Lesion or Malignancy. SPECIMEN ADEQUACY: Satisfactory for Evaluation. ??Endocervical cells/transformation zone component present. Verified on 03/06/2015 ??by MINIE BACCAM, CT(ASCP) (electronic signature) CLINICAL NOTES: ?Abnormal bleeding: No, LMP: 02/26/15, Menstrual status: None Apply, ?Current form of therapy: Hormone Therapy LIQUID BASED PAP SMEAR SPECIMEN TYPE: ?ROUTINE CERVICAL PAP TEST PLEASE NOTE: The pap smear is a screening test designed to aid in the detection of cervical cancer and its precursor lesions. It is not a diagnostic procedure and should not be used as the sole means of detecting cervical cancer. Both false-positive and false-negative reports may occur. ? End of Report Performed at [facility], [address] [place] [id number] Transcriptions 04/03/2016 11:05 PM CSTNotes Recorded by Amy Romero RN on 03/09/2015 at 8:57 Stanley Jarvis,I [...] test results, callCervical Cancer Screening and Management [id number],Amy Romero RN on behalf ofDr. Airam Obando, Medical DirectorAustin [facility] Cervical Cancer Screening and Management Nanette Kay APRN, WHITE SHOE RAGGER LAB_1 HP CONVERSION * HIV ANTIBODY (07/30/2012 12:11 PM CDT) HIV 1/HIV 2 Non-React Non-Reacti ve HP CONVERSION 07/30/2012 12:1 1 PM CDT 07/30/2012 1:32 PM CDT Nanette Kay APRN, WHITE SHOE RAGGER LAB_1 HP CONVERSION * Hepatitis C Antibody, with Reflex (07/30/2012 12:11 PM CDT) Hepatitis C Antibody Non-React Non-Reacti ve HP CONVERSION 07/30/2012 12:1 1 PM CDT 07/30/2012 1:32 PM CDT Nanette Kay RETURNED GOODS RECEIVING CLERK, WHITE SHOE RAGGER LAB_1 HP CONVERSION from Last 3 Months or Most Recently Relevant to Health Maintenance Advance Directives * Full Code (Latest Code Status on File) Date Activated Date Inactivated Comments 05/28/2013 11:30 AM 05/28/2013 2:36 PM Care Teams Tax Record Clerk Relationship Specialty Start Date End Date Jie Farah DO [address] [place] [address] PCP - General Family Practice 04/05/16
[2023-12-26 14:47] LABS: HPV Source Cervix; HPV, High Risk by TMA Not Detected
== END 2023-12-23 14:09 | disposition home or self-care (01) ==
PROVIDERS: Visit Provider Registered Nurse
DX: Z01.419 Encounter for gynecological examination (general) (routine) without abnormal findings (principal); Z12.4 Encounter for screening for malignant neoplasm of cervix; Z13.6 Encounter for screening for cardiovascular disorders; Z13.1 Encounter for screening for diabetes mellitus; Z13.29 Encounter for screening for other suspected endocrine disorder; Z11.51 Encounter for screening for human papillomavirus (HPV)
CPT/HCPCS: 80061; 82947; 84443; 87624; 87625; 88141; 88142

== ENCOUNTER 2024-02-05 12:06 | Outpatient (CLI) | payer BC, SELFPAY ==
--- NOTE | 2024-02-05 12:15 | CRLHL7_ITS ---
For Patients: As a result of the Century Cures Act, medical imaging exams and procedure reports are released immediately into your electronic medical record. You may view this report before your referring provider. If you have questions, please contact your health care provider. INDICATION: First trimester scan, establish dates. COMPARISON: None. TECHNIQUE: Real-time reid-scale imaging of the pelvis was performed. FINDINGS: Sonographic imaging demonstrates a single living intrauterine gestation. The embryo demonstrates a regular cardiac rate measuring 177 beats per minute. The embryo`s crown-rump length measurement of 2.2 cm corresponds to a gestational age of 8 weeks 6 days with a sonographic due date of 09/10/2024. There is a normal-appearing yolk sac. There are no gross abnormalities noted within the embryo at this early state of development. The gestational sac has a normal appearance. There is and inferior perigestational hemorrhage measuring 2.5 x 0.3 x 2.1 cm. The amount of fluid within the sac appears appropriate for gestational age. The cervix is closed. The myometrium appears normal. The ovaries are of normal size. Corpus luteal cyst right ovary. There are no suspicious fluid collections noted in the cul-de-sac. IMPRESSION: Single living intrauterine with sonographic gestational age 8 weeks 6 days and a sonographic due date of 09/10/2024. Inferior subchorionic hemorrhage measures 2.5 x 0.3 x 2.1 cm. Dictated by Twin Sykes MD @ 02/05/2024 1:25:53 PM (Electronically Signed)
== END 2024-02-05 12:07 | disposition home or self-care (01) ==
LOC: US 12:07
PROVIDERS: Visit Provider Advanced Practice Midwife
DX: Z34.91 Encounter for supervision of normal pregnancy, unspecified, first trimester (principal); Z3A.08 8 weeks gestation of pregnancy
CPT/HCPCS: 76817

== ENCOUNTER 2024-02-05 13:04 | Outpatient (CLI) | payer BC, SELFPAY | END 2024-02-05 13:05 | disposition home or self-care (01) | PROVIDERS: PCP Advanced Practice Midwife; Visit Provider Advanced Practice Midwife | DX: Z34.91 Encounter for supervision of normal pregnancy, unspecified, first trimester (principal); Z3A.08 8 weeks gestation of pregnancy | CPT/HCPCS: 83020; 83021; 85660; 86592; 86703; 86704; 86706; 86762; 86787; 86803; 86850; 87086; 87340 ==

== ENCOUNTER 2024-04-28 12:57 | Outpatient (CLI) | payer BC, SELFPAY | END 2024-04-28 12:58 | disposition home or self-care (01) | LOC: US 12:57 | PROVIDERS: Visit Provider Registered Nurse | DX: O09.522 Supervision of elderly multigravida, second trimester (principal); Z3A.20 20 weeks gestation of pregnancy | CPT/HCPCS: 76811 ==

== ENCOUNTER 2024-06-23 09:52 | Outpatient (CLI) | payer BC, SELFPAY | END 2024-06-23 09:53 | disposition home or self-care (01) | LOC: NFLDREF 06-25 23:27 | PROVIDERS: Visit Provider Advanced Practice Midwife | DX: Z34.83 Encounter for supervision of other normal pregnancy, third trimester (principal); Z67.91 Unspecified blood type, Rh negative | CPT/HCPCS: 85461; 86592; 86850 ==

== ENCOUNTER 2024-07-21 12:48 | Outpatient (CLI) | payer BC, SELFPAY ==
--- NOTE | 2024-07-21 13:00 | CRLHL7_ITS ---
For Patients: As a result of the Century Cures Act, medical imaging exams and procedure reports are released immediately into your electronic medical record. You may view this report before your referring provider. If you have questions, please contact your health care provider. OB ULTRASOUND KAREN by LMP or US: 09/15/2024. GA: 32 w, 0 d. Single. Comparison: 04/28/2024. INDICATION: History of macrosomia. TECHNIQUE: Real time grayscale imaging of the fetus was performed. Transabdominal. CERVIX: Not visualized. POSITIONING: Vertex. AMNIOTIC FLUID: 5.1 cm. SDP (N: greater than 2 x 1 cm) PLACENTA: Technique: Transabdominal. PLACENTA POSITION: Anterior. DOPPLER: heart rate: 150 bpm. BIOMETRY: BPD: 8.2 cm. 32 w, 6 d, 67 percent. HC: 31.3 cm. 35 w, 0 d, 88 percent. AC: 29.0 cm. 33 w, 0 d, 77 percent. FL: 6.3 cm. 32 w, 5 d, 58 percent. FL/AC ratio: 21.82 percent. HC/AC ratio: 1.08. EFW: 2122 g. Weight: 4 lbs, 11 oz. age by this US: 33 w, 3 d. KAREN by this US: 09/05/2024. Percentile by KAREN: 75 percent. IMPRESSION: 1. Sonographic gestational age 33 weeks 3 days and sonographic due date 09/05/2024. Sonographic age is 10 days ahead of the clinical age. 2. Estimated weight 75th percentile. Abdominal circumference 77th percentile. Twin Sykes M.D. Diagnostic Radiologist [email or web address]/[email or web address] zambrano/Dictated by: Twin Sykes MD @ 07/21/2024 4:03:00 PM (Electronically Signed)
== END 2024-07-21 12:49 | disposition home or self-care (01) ==
LOC: US 12:48
PROVIDERS: Visit Provider Obstetrics & Gynecology
DX: O09.523 Supervision of elderly multigravida, third trimester (principal); Z36.88 Encounter for antenatal screening for fetal macrosomia; O36.63X0 Maternal care for excessive fetal growth, third trimester, not applicable or unspecified; Z3A.32 32 weeks gestation of pregnancy
CPT/HCPCS: 76816

== ENCOUNTER 2024-08-19 12:57 | Outpatient (CLI) | payer BC, SELFPAY ==
--- NOTE | 2024-08-19 13:00 | CRLHL7_ITS ---
For Patients: As a result of the Cures Act, medical imaging exams and procedure reports are released immediately into your electronic medical record. You may view this report before your referring provider. If you have questions, please contact your health care provider. OB ULTRASOUND BIOPHYSICAL PROFILE FOLLOW-UP/LIMITED, 08/19/2024 CLINICAL HISTORY: AMA. COMPARISON: 07/21/2024, 04/28/2024, 02/05/2024. TECHNIQUE: Real time reid scale imaging of the fetus was performed. Transabdominal imaging performed. FINDINGS: LMP: 12/10/2023. KAREN by LMP: 09/15/2024. GA: 36 weeks 1 day. Gestation: Single. Cervix: Not visualized. Positioning: Vertex. Amniotic Fluid: 4.8 cm SDP. BIOPHYSICAL PROFILE: Gross Body Movements: 2 Tone: 2 Respiratory Activity: 2 Amniotic Fluid SDP: 2 Total: 8/8 Placenta: Technique: TA. Placenta Position: Anterior. Dopplers: Heart Rate: 155 bpm. IMPRESSION: Normal biophysical profile score of 8/8. Twin Sykes M.D. Diagnostic Radiologist [email or web address] Transcribed: 9:44 am DW/Dictated by: Twin Sykes MD @ 08/20/2024 6:19:00 AM (Electronically Signed)
--- OUTSIDE RECORDS SUMMARY | 2024-08-20 01:09 | XMS_ITS | Clinical Summary ---
Author Organization [facility] Address [address] [place] [id number] Care Team Providers Care Electric Truck Driver Name Role Phone Unknown, Doctor Primary Care Provider Unavailabl e Allergies No known active allergies Medications SUMAtriptan (IMITREX) 100 mg tablet As directed. 08/05/2023 Active Active Problems No known active problems Social History Tobacco Use Types Packs/Day Years Used Date Smoking Tobacco: Never Smokeless Tobacco: Never Tobacco Cessation:Counseling Given: Not Answered Comments No Sex and Gender Information Value Date Recorded Sex Assigned at Not on file Legal Sex Female 3:44 PM CDT Gender Identity Not on file Sexual Orientation Not on file Obstetrics History Last Filed Vital Signs Vital Sign Reading Time Taken Comments Blood Pressure 112/76 08/28/2023 12:41 PM CDT Pulse 96 08/28/2023 12:41 PM CDT Temperature 37.2 C (99 F) 08/28/2023 12:41 PM CDT Respiratory Rate 16 08/28/2023 12:4 [...] Hepatitis C screening for age 18-79 12/15/2001 Hepatitis B series for 19+ (1 of 3 - 19+ 3-dose series) 12/15/2002 Tetanus booster 2003 COVID-19 vaccine series (2023- season) 2023 06/05/2020, 05/06/2020 Influenza Vaccine (Season Ended) 2024 Pap test for age 21-65 12/20/2025 , 12/20/2022, 12/18/2021, Additional history exists Pneumococcal series for age 6-49 Aged Out No longer eligible based on patient's age to complete this topic Procedures Procedure Name Priority Date/Time Associated Diagnosis Comments HPV HIGH RISK Routine 12/20/2022 10:30 AM CDT from Last 3 Months or Most Recently Relevant to Health Maintenance Results * HPV HIGH RISK (12/20/2022 10:30 AM CDT) TYPE 16 Negative Negative 12/25/2022 1:54 PM CDT [facility] TYPE 18 Negative Negative 12/25/2022 1:54 PM CDT [facility] OTHER HIGH RISK TYPES Negative Negative 12/25/2022 1:54 PM CDT [facility] Other (Cervical) 12/20/2022 10:30 AM CDT 12/23/2022 12:05 PM CDT Narrative [facility] 12/25/2022 1:54 PM CDT HPV types 16, 18, 31, 33, 35, 39, 45, 51, 52, 56, 58, 59, 66 and 68 DNA were undetectable or below the pre-set threshold. Methodology: Dania Otilio 4800 HPV Test us Luiza Orozco NP MICROBIOLOGY Final Res ult [facility] [address] [place] [address], from Last 3 Months or Most Recently Relevant to Health Maintenance Insurance [facility] Care Teams Electric Truck Driver Relationship Specialty Start Date End Date Unknown, Doctor . PCP - General 08/28/23
== END 2024-08-19 12:58 | disposition home or self-care (01) ==
LOC: US 12:58
PROVIDERS: Visit Provider Obstetrics & Gynecology
DX: O09.523 Supervision of elderly multigravida, third trimester (principal); Z3A.36 36 weeks gestation of pregnancy
CPT/HCPCS: 76819; 87081; 87653

== ENCOUNTER 2024-09-01 16:11 | Inpatient (IN) | payer BC, SELFPAY ==
[2024-09-01] VITALS (27 sets, daily range): BP systolic 103–122; BP diastolic 59–82; PULSE 77–112; RESP 16–20; TEMP 36.8; O2SAT 96–100; BMI 29.3
--- NOTE | 2024-09-01 14:53 | P.LDBA_ITS ---
Subjective History of Present Illness Date Seen: 09/01/24 Narrative: Patient is being admitted to Labor and Delivery for repeat with bilateral salpingectomy. She is a 38 year old -0-0-1 woman at 38 0/7 weeks gestation. She had BPP today for AMA: IMPRESSION: 1. The placenta lies anterior with no appreciable retroplacental hematoma or definitive separation of the placental edge; however, the amniotic fluid is echogenic, suggestive of intra amniotic hemorrhage, which may be a secondary sign of placental abruption. 2. Biophysical profile score of 6/8 with no points for respiratory activity. She was subsequently sent to the Center, where NST was reactive and reassuring. She denies any bleeding or abdominal pain. Her full history and physical was dictated by Dr. Hair on 08/19. Please see this for details. Specific Issues/Plans Partner: Brigido Coyne son 2 years?, Expecting a BOY!! H&P:? 08/19 Dr. Hair # Hx of C/S?and undesired fertility * consult OB if planning TOLAC, no plan at first OB? * Prefers scheduled * RLTCS requested 09/08/24 with bilateral salpingectomy #? ?AMA-40 years old or greater at delivery NIPT low risk 20-week Level II detailed ultrasound with MFM(05/26/24) BPP/NST form filled out. Weekly testing starting at 36 weeks. Growth ultrasound at 32 weeks: ordered Recommend delivery at 39-39 6/7 weeks. #? Rh negative blood type Recommend Rhogam at 28 weeks: received 06/23 Rh + per [place] #Migraines Reglan ordered. Improved after 1st trimester #Hx of macrosomia, 9lbs 8oz 32 weeks US: EFW 75% Imaging:??? Level 2 04/28/24: Normal anatomy and amniotic fluid, anterior placenta not previa,3 vessel umbical cord, cervix closed and long, EFW: 97%, AC:92%. growth US at 32 weeks, weekly testing starting at 36 weeks. Vaccinations:?? COVID: Declines Flu: 12/23/23 Tdap: 07/08/24 RSV: N/A 32 week mental health: 07/21/24 Last pap:? 12/23/23 NIL,neg HPV? OB - Problem Based A/P Additional Plan (1) Rh negative, antepartum: Status: Acute (2) AMA (advanced maternal age) multigravida 35+: Status: Acute (3) Hx of section complicating : Status: Acute (4) Placental abruption: Status: Acute Plan [id number] at 38 0/7 weeks' gestation with findings suggestive of abruption on ultrasound. If this is the case, it is an occult abruption. Reassuring status; BPP 8/10 Rh negative Previous Undesired fertility Given the seriousness of placental abruption, we will proceed with delivery with bilateral salpingectomy early term, today. I consider this an urgent scenario and prefer to proceed before 8 hrs NPO status. Labs to include CBC, fibrinogen, coags Continuous monitoring until delivery KB ordered to determine need for additional RhoGam. Two IVs to be placed Delivery/Labor/Induction Plan Plan: Section OB Exam Physical Exam Vital signs: Temp Pulse Resp BP Pulse Ox 98.2 F 100 16 118/81 100 09/01/24 13:50 09/01/24 14:22 09/01/24 13:50 09/01/24 14:22 09/01/24 14:26 Narrative: Physical exam: General: No acute distress Psych: Alert and oriented x3, full affect HEENT: Normocephalic, atraumatic Heart: Regular rate and rhythm, no murmur rub or gallop Lungs: Clear to auscultation bilaterally Abdomen: Soft, nontender, gravid Lower extremities: No edema or erythema tracing: Baseline 135 / accelerations present / one brief variable deceleration / moderate variability. No contractions noted
[2024-09-01 15:31] LABS: Hematocrit 37.2 % (33.0-51.0); Hemoglobin* 11.8 gm/dL (12.0-16.0); Immature Granulocytes Abs Auto 0.10 K/uL (0.00-0.30); Immature Granulocytes Pct Auto 0.9 %; Mean Corpuscular HGB Conc 32 gm/dL (32-36); Mean Corpuscular Hemoglobin 26 pg (26-34); Mean Corpuscular Volume 82 fL (80-100); RDW Coefficient of Variation % 14.4 % (11.5-15.5); Red Blood Count 4.53 m/uL (4.00-5.20); White Blood Count* 11.56 K/uL (4.50-11.00)
[2024-09-01 15:44] LABS: Lymphocytes Absolute Auto 1.30 K/uL (0.90-2.90); Slide Review Reflex No
[2024-09-01 15:48] LABS: INR 0.97 (0.91-1.10); Prothrombin Time 13.7 Seconds
[2024-09-01] MEDS: LACTATED RINGERS 1000 ML 1,000 ML 999 ML IV (16:04)
[2024-09-01] MEDS: LACTATED RINGERS 1000 ML 1,000 ML 100 ML IV (16:51)
--- NOTE | 2024-09-01 17:09 | SUR.OPER ---
Cord blood was given to OB RN by CABLE ARMORER at 1709
--- NOTE | 2024-09-01 18:18 | P.OBPRC_ITS ---
Procedure Date of procedure: 09/01/24 Pre-op diagnosis: 38 0/7 weeks' gestation Previous Undesired fertility Suspected occult placental abruption (abnormal appearance of amniotic fluid on ultrasound) Post-op diagnosis: other (No evidence of abruption; normal appearance of fluid) Procedure Done: Global (repeat with bilateral salpingectomy) Will [facility] bill your pro fee for this procedure?: Yes Blood Loss Measurement Type: QBL (696) Bakri Used: No IV fluids (mL): 1,900 Urine Output (mL): 150 Surgeon: Dunia Hair MD Cost Control Specialist: Moira Baca CRNA Anesthesia Type: Spinal Findings: 1. Male , cephalic lie, Apgars of 8 and 9, weight 7 lb and 9 oz 2. Amniotic fluid appeared clear. Otherwise, normal appearance of uterus, bilateral tubes and ovaries Procedure Name: Repeat with bilateral salpingectomy Procedure Description: Patient was taken to the operating room with IV running. She received cefazolin in preoperative prophylaxis. Spinal anesthesia was administered. Bhatt catheter was inserted. She was prepped and draped in the usual sterile fashion. Anesthesia was tested and found to be adequate. A low-transverse skin incision was made with a scalpel and carried through to the underlying layer of fascia with the scalpel. The subcutaneous fat was dissected off the underlying fascia with scissors. The fascia was nicked in the midline with a scalpel, and this incision was extended laterally with scissors. The rectus muscles were in the midline. Peritoneum was identified and entered bluntly. Bovie was used to widen this opening. James O retractor was inserted and tightened down, providing excellent visualization of the lower uterine segment. The bladder reflection was found to be advanced along the lower uterine segment. A bladder flap was created with a combination of sharp and blunt dissection. Low-transverse uterine incision was made with a scalpel. Incision was widened bluntly. The infant's head was grasped through the hysterotomy and delivered with the help of fundal pressure. The remainder of the body delivered without incident. Cord was clamped and cut after 30 seconds. Infant was handed off to attending nurses. The placenta was delivered with gentle traction on the cord. The uterus was cleaned of all clots and debris with the dry lap pad. The hysterotomy was reapproximated with 0 Vicryl in a running, locked fashion. Second layer of the same suture was used in imbricating fashion to obtain hemostasis. The uterus was exteriorized. The adnexa were examined and noted to be normal in appearance. The left tube was grasped with [place] clamps and elevated away from the ovary and uterus. The LigaSure exact device was used to cauterize and transect the blood supply laterally. Dissection was carried laterally to medially through the mesosalpinx, until the cornua was reached. The tube was amputated with the LigaSure exact device and sent to pathology. This procedure was repeated on the patient's right side. Hemostasis was noted on both sides. The cul-de-sac and gutters were cleansed with dampened laparotomy sponge, removing any further clots and debris. The uterus was returned to the abdomen. The James O retractor was removed. The hysterotomy was reexamined and several additional uytovy-ik-zfzik sutures were required for hemostasis. The peritoneum was reapproximated with 2 0 Vicryl in a running fashion. The rectus muscles were examined and Bovie used on oozing vessels. The fascia was reapproximated with 0 Vicryl in a running fashion. Subcutaneous fat was irrigated and Bovie used on oozing vessels. The skin was closed with a subcuticular stitch of 4-0 Monocryl. Surgical glue was applied above this. Patient tolerated procedure well was taken to recovery area in stable condition. Complications: None Pathology: specimen obtained, sent to pathology (1. Placenta 2. Bilateral fallopian tubes) Surgery Debrief Performed: Yes Surgery Debrief Comment: Postoperative debrief was verbalized with OR staff, including a verification of pathology specimens to be sent as described above. Provencal Infant total score - 1 minute: 8 total score - 5 minute: 9
--- NOTE | 2024-09-01 18:35 | P.NB_ITS ---
Nerve Block Nerve Block Time Seen by Provider: 18:20 Date Seen: 09/01/24 Type of block requested by surgeon for post-operative analgesia: TAP Side: bilateral Time out performed: Yes Verification of patient name: Yes Verification of date of : Yes Site marking: site marked Name of person performing procedure: mantyl Continuous monitoring Was continuous monitoring of O2 sat, B/P, school transportation supervisor, recorded every 15 minutes?: Yes Procedure Checklist: sterile prep, needles and gloves Ultrasound guided. Images saved: Yes Medications given in 5ml increments after negative aspiration: Marcaine %: 0.25 mL: 30 and Exparel mL: 10 Patient tolerated procedure well: Yes Block Charges Block Charge (with Pro Fee): TAP Bilateral Use of Ultrasound Machine for Block: Yes- US Guidance/pain block
--- NOTE | 2024-09-01 18:36 | P.ANES_ITS ---
Anesthesia Charges Start Date/Time Anesthesia Start Date: 09/01/24 Anesthesia Start Time: 16:36 Stop Date/Time Anesthesia Stop Date: 09/01/24 Anesthesia Stop Time: 18:30 Summary Emergency: DEDICATED OWNER OPERATOR Coding CPT Codes CPT Codes: ANESTH CS DELIVERY - 45243 ([id number]) P2 - PATIENT W/MILD SYST DISEASE, QZ - DEDICATED OWNER OPERATOR SVC W/O OPERATOR CAVITY PUMP BY Additional Codes: Summary - Emergency: DEDICATED OWNER OPERATOR ([id number])
--- NOTE | 2024-09-01 18:36 | W.ANESCHARGE ---
Anesthesia Charges Start Date/Time Anesthesia Start Date: 09/01/24 Anesthesia Start Time: 16:36 Stop Date/Time Anesthesia Stop Date: 09/01/24 Anesthesia Stop Time: 18:30 Summary Emergency: PARIMUTUEL TICKET CHECKER Coding CPT Codes CPT Codes: ANESTH CS DELIVERY - 44228 ([id number]) P2 - PATIENT W/MILD SYST DISEASE, QZ - PARIMUTUEL TICKET CHECKER SVC W/O PRODUCT PICKER BY Additional Codes: Summary - Emergency: PARIMUTUEL TICKET CHECKER ([id number])
[2024-09-01] MEDS: ACETAMINOPHEN 500 MG TABLET 1000 MG PO (20:07)
[2024-09-02] MEDS: ACETAMINOPHEN 500 MG TABLET 1000 MG PO ×3 (02:34→14:09)
[2024-09-02 02:36] VITALS: BP 103/71; PULSE 80; RESP 16; TEMP 36.5; O2SAT 95
[2024-09-02 06:42] LABS: Hemoglobin* 9.8 gm/dL (12.0-16.0)
[2024-09-02] MEDS: DOCUSATE SODIUM 100 MG CAPSULE PO (08:37)
[2024-09-02 08:50] VITALS: BP 109/71; PULSE 85; RESP 16; TEMP 36.9; O2SAT 96
--- NOTE | 2024-09-02 10:24 | P.OBPN_ITS ---
OB - PN:Subj Subjective Date Seen: 09/02/24 Narrative: Kimberley is a 27 y.o. G 2 P 2 who was admitted to [facility] for suspected occult abruption and repeat c/s. ?She had a section with tubal ligation that was uncomplicated. The patient feels well. ?The pain is well controlled with current medications. ?She has no new complaints. ?She is breast feeding and reports things are going well. the patient has done well.? Vitals have been stable.? She has remained afebrile.? Has a good appetite, is tolerating a general diet. ?She is voiding without difficulty.? She is passing gas and has not had a bowel movement.? She is ambulating and denies any dizziness.? Has small amount of rubra lochia. Problems: Anemia OB - PN: Obj Exam Physical Exam: Vital signs: Temp Pulse Resp BP Pulse Ox O2 Del Method 98.4 F 85 16 109/71 96 Room Air 09/02/24 08:50 09/02/24 08:50 09/02/24 08:50 09/02/24 08:50 09/02/24 08:50 09/02/24 08:50 Narrative: GENERAL APPEARANCE:? normal affect, alert, no distress MOOD:? appropriate CHEST:? clear to auscultation HEART:? regular rate and rhythm ABDOMEN:? soft, non-tender the uterine fundus is At Umbilicus, Midline and is appropriate for the stage of recovery. EXTREMITIES:? normal and no edema INCISION: Dressing in place; clean, dry and intact. OB - PN: Obj Data Labs Labs: Laboratory Results - last 24 hr 09/01/24 09/02/24 09/02/24 15:20 06:02 08:42 WBC 11.56 H RBC 4.53 Hgb 11.8 L 9.8 L Hct 37.2 MCV 82 MCH 26 MCHC 32 RDW Coeff of Neal 14.4 Plt Count 251 Neut % (Auto) 79.1 H Lymph % (Auto) 11.5 L [place] % (Auto) 7.3 Eos % (Auto) 1.0 Baso % (Auto) 0.2 Neut # (Auto) 9.10 H Lymph # (Auto) 1.30 [place] # (Auto) 0.80 Eos # (Auto) 0.10 Baso # (Auto) 0.00 Abs Immat Gran (auto) 0.10 Imm/Tot Granulo (auto) 0.9 INR 0.97 APTT 30 Fibrinogen 529 H Blood Type B Negative Antibody Screen POSITIVE Screen Negative OB - PN: A/P Delivery Assessment and Plan (1) care and examination immediately after delivery: Status: Acute (2) Rh negative, antepartum: Status: Acute (3) Placental abruption: Status: Acute (4) Lactating mother: Status: Acute (5) S/P tubal ligation: Status: Acute (6) Status post delivery: Status: Acute Plan day: 1 Plan: routine care Comments: Anticipate d/c tomorrow or the following day. , may see if needed? Hgb 9.8. Iron supplement ordered orally every other day Routine post-op care.
[2024-09-02 11:55] VITALS: BP 101/70; PULSE 82; RESP 16; TEMP 36.6; O2SAT 97
[2024-09-02 12:07] VITALS: BP 101/70; PULSE 82; RESP 16; TEMP 36.6; O2SAT 97
[2024-09-02 16:37] VITALS: BP 107/71; PULSE 87; RESP 16; TEMP 36.8; O2SAT 97
[2024-09-03 01:33] VITALS: BP 111/76; PULSE 73; RESP 16; TEMP 36.6; O2SAT 97
[2024-09-03] MEDS: IBUPROFEN 600 MG TABLET PO (09:00)
[2024-09-03] MEDS: DOCUSATE SODIUM 100 MG CAPSULE PO (09:02)
[2024-09-03 10:09] VITALS: BP 114/74; PULSE 82; RESP 18; TEMP 36.7; O2SAT 97
--- NOTE | 2024-09-03 10:28 | P.DS_ITS ---
DS: Providers Provider Date Seen: 09/03/24 Date of admission: 09/01/24 16:11 Primary care physician: Not a Local Provider Admitting Clinician: Dunia Hair MD Attending Physician on discharge: Dunia Hair MD Date of Discharge: 09/03/24 DS: Diagnosis Discharge Diagnosis (1) care and examination immediately after delivery: Status: Acute (2) Status post delivery: Status: Acute Exam Narrative: Exam Narrative: GENERAL APPEARANCE:? normal affect, alert, no distress? MOOD:? appropriate? CHEST:? clear to auscultation and percussion? HEART:? regular rate and rhythm? BREASTS: soft, nontender, no erythema, nipples intact ABDOMEN:? soft, non-tender the uterine fundus is firm and is appropriate for the stage of recovery. Incision dressing C/D/I.? EXTREMITIES:? normal and no edema? Const: Vital Signs, click to edit/add: Vital Signs - 24 hr 09/02/24 11:55 09/02/24 12:07 09/02/24 16:37 Temperature 97.9 F 97.9 F 98.3 F Pulse Rate 82 Pulse Rate [Left P ulse Oximeter] 82 87 Respiratory Rate 16 16 16 Blood Pressure 101/70 Blood Pressure [Ri ght Arm] 101/70 107/71 Pulse Oximetry 97 97 97 Oxygen Delivery Me thod Room Air Room Air Room Air 09/03/24 01:33 09/03/24 10:09 Temperature 97.8 F 98.1 F Pulse Rate Pulse Rate [Left P ulse Oximeter] 73 82 Respiratory Rate 16 18 Blood Pressure Blood Pressure [Ri ght Arm] 111/76 114/74 Pulse Oximetry 97 97 Oxygen Delivery Me thod Room Air Room Air OB - DS: Summary Hospital Course Hospital Course: The patient is a 38 year old G 2 P 2004 at 38 weeks gestation that was admitted to the Center on 09/01/24 for repeat section after a BPP earlier in the day showed concern for possible abruption. She had an uncomplicated delivery. She delivered a viable male . She is breast feeding. the patient has done well. Peripartum Data Infant delivery method: Repeat Section Procedures: Procedures Operation Date: 09/01/24 16:30 Actual Procedure Side Surgeon p Repeat Section, Bilateral Salpingectomy Dunia Hair MD complications: none [place] Infant Gender: Male Infant Discharge Plan: Home Status at Discharge Functional status at discharge: independent ambulation Overall status at discharge: patient is progressing back to baseline Time Spent with Patient Time attestation: Total time spent providing and/or coordinating discharge services: Discharge Plan Discharge Disposition: Home, Self-Care Date of Admission: 09/01/24 16:11 Attending Provider on Discharge: Sarah Sullivan Primary Care Provider: Provider,Not a Local Condition: Stable Anticipated Discharge Date/Time: 09/03/24 10:29 Discharge Medications: New acetaminophen 500 mg Tablet 1,000 mg PO Q6H PRN (Reason: Pain) Qty: 100 0RF ferrous sulfate 325 mg (65 mg iron) Tablet 325 mg PO Q OTHER DAY Qty: 30 0RF ibuprofen 600 mg Tablet 600 mg PO Q6H PRN (Reason: Pain) Qty: 100 0RF Continued DHA 200 mg capsule 200 mg PO DAILY calcium carbonate [Tums] 200 mg calcium (500 mg) tablet,chewable 200 mg PO BID PRN docusate sodium [Colace] 100 mg capsule 100 mg PO QDAY PRN Zyrtec 10 mg capsule 10 mg PO QDAY PRN Discontinued Unisom (doxylamine) 25 mg tablet 25 mg PO QHS PRN aspirin 81 mg tablet,delayed release (DR/EC) 81 mg PO QDAY No Action oxycodone 5 mg tablet 5 - 10 mg PO Q4H PRN (Reason: Pain) Qty: 14 0RF Discharge Orders: Discharge Order (Routine); Ordered 09/03/24 Ordered By: Sarah Sullivan Patient Education: OB /Breast Feeding Additional Instructions: Discharge instructions were reviewed with the patient including signs and symptoms of infection and home going medications Lifting Restrictions: 20 pounds for 6 weeks No not submerge incision under water X 2 weeks? Nothing vaginally for 6 weeks: no tampons or intercourse Do not drive while taking narcotic pain medication(s) Off Work or School for 8 weeks Symptoms to report to doctor: * Bleeding that saturates more than one pad per hour * Passing clots larger than the size of a golf ball * Pain not relieved by prescribed medication * Fever above 100.4 degrees Fahrenheit * A foul vaginal odor * Difficulty in emotions, mood, and functions * Thoughts of hurting yourself and/or * Painful, reddened area in your breast * Any drainage, redness, or tenderness in your IV/epidural site * Severe headache that doesn't improve after taking medications * Changes in vision, including temporary loss of vision, blurred vision, and/or light sensitivity * Upper abdominal pain (usually under ribs on the right side) * Decrease in urination or painful, frequent urinating * Chest pain * Shortness of breath * Tenderness or pain with redness and/swelling in the calf(s) of your leg Optional 2-week visit: incision check, discuss infant feeding concerns, review control options and screen for anxiety/depression. 6-week visit for an annual exam. consultation services are available to all mothers and babies for the first year after delivery.? To make an appointment, please call [phone]. Activity Level: No strenuous activity Discharge Diet: Regular Follow Up Appointments: Provider,Not a Local [Primary Care Provider, Family Practice] Forms: [facility] Info Instructions
[2024-09-03 13:35] VITALS: BP 112/68; PULSE 76; RESP 18; TEMP 36.9; O2SAT 98
== END 2024-09-03 14:00 | disposition home or self-care (01) | DRG 540 ==
LOC: OB OUT 16:11 → OB 16:11
PROVIDERS: Admitting Provider Obstetrics & Gynecology; Visit Provider Obstetrics & Gynecology
PROC: 10D00Z1 Extraction of Products of Conception, Low, Open Approach (ICD-10-PCS; CPT 59514; principal; 2024-09-01 16:30)
DX: O45.93 Premature separation of placenta, unspecified, third trimester (principal); O34.211 Maternal care for low transverse scar from previous cesarean delivery; G89.18 Other acute postprocedural pain; Z30.2 Encounter for sterilization; O26.893 Other specified pregnancy related conditions, third trimester; Z67.21 Type B blood, Rh negative; Z3A.38 38 weeks gestation of pregnancy; Z37.0 Single live birth
CPT/HCPCS: 01961; 36415; 64488; 76819; 76942; 85018; 85025; 85384; 85460; 85461; 85610; 85730; 86850; 86870; 86900; 86901; 88184; 88302; 88307; 99140; A4314; A9270; J0665; J0666; J0690; J1100; J1885; J2250; J2371; J2405; J2590; J2791; J7120